=== PATIENT | female | born 1970 | race African-American/Black ===

== ENCOUNTER 2016-08-05 09:23 | Emergency (ER) | payer MEDICARE, MEDICAID ==
[~2016-08-05] VITALS: Ht 167.6 cm; Wt 56.7 kg
[~2016-08-05 09:23] MED LIST: ALBUTEROL SULF8.5 GM INH; CHILDREN'S100 MG/51 PO; FUROSEMIDE20 M1 PO; IBUPROFEN400 MG ORAL; PROMETHAZINE-C118 M1 ORAL; REFRESH PLUS1 EACH OP; REFRESH TEARS15 ML OP; TEGRETOL200 MG PO; [UNRECOGNIZED DRUG - OTHER] OP
[2016-08-05 11:02] LABS: MEAN CORPUSCULAR HEMOGLOBIN 30.7 PG (27.0-31.0); MEAN CORPUSCULAR HGB CONC 32.1 G/DL (32.0-36.0); MEAN CORPUSCULAR VOLUME 96 FL (80-99); PLATELET COUNT 222 K/UL (150-450); RED BLOOD COUNT 3.44 M/UL (4.20-5.40); RED CELL DISTRIBUTION WIDTH 13.5 % (11.6-14.8); WHITE BLOOD COUNT 3.1 K/UL (4.8-10.8)
[2016-08-05 11:21] LABS: ALANINE AMINOTRANSFERASE 19 U/L (3-33); ALBUMIN/GLOBULIN RATIO 1.1 (1.0-2.7); ANION GAP 12 (5-15); ASPARTATE AMINO TRANSFERASE 25 U/L (5-40); CARBON DIOXIDE 28 mEQ/L (20-30); CHLORIDE 99 mEQ/L (98-107); CREATININE 0.4 mg/dL (0.5-0.9); GLOMERULAR FILTRATION RATE > 60 mL/min (>60); HEMOLYSIS 34; POTASSIUM 4.4 mEQ/L (3.4-4.9); SODIUM 139 mEQ/L (135-145); TOTAL PROTEIN 6.4 g/dL (6.6-8.7)
[2016-08-05 11:37] LABS: BAND NEUTROPHILS % (MANUAL) 0 % (0-8); BASOPHILS % (MANUAL) 0 % (0-2); EOSINOPHILS % (MANUAL) 5 % (0-3); LYMPHOCYTES % (MANUAL) 29 % (20-45); NEUTROPHILS % (MANUAL) 56 % (45-75); PLATELET ESTIMATE ADEQUATE; PLATELET MORPHOLOGY NORMAL; TOTAL CELLS COUNTED 100
[2016-08-05 11:38] LABS: HYPOCHROMASIA 1+
[2016-08-05 12:00] VITALS: BP 130/78
--- NOTE | 2016-08-05 13:13 | Emergency Room Report ---
History of Present Illness General Chief Complaint: Abdominal Pain Source: Patient, Family Member, EMS Present Illness HPI Patient has a history of seizure disorder and neurofibromatosis. She is brought in by ambulance for a possible seizure. Although, EMS states that she just seemed agitated on arrival. Patient underwent a hysterectomy about a week ago. She states that she is on the wrong seizure medications. The patient denies abdominal pain. Patient denies fever or chills. There are no other complaints. Allergies: Coded Allergies: PENICILLINS (Verified Allergy, Severe, 08/07/12) SHELLFISH DERIVED (Verified Allergy, Severe, 08/07/12) Uncoded Allergies: PENECILLIN (Allergy, Unknown, 08/05/16) Patient History Past Medical History: see triage record, seizures, other - neurofibromatosis, nerve deafness, anemia Past Surgical History: hysterectomy Social History: Denies: alcohol use, drug use, smoking Last Menstrual Period: hysterectomy 07/31/16 Reviewed Nursing Documentation: PMH: Agreed, PSxH: Agreed Nursing Documentation-PMH Past Medical History: No History, Except For Hx Hypertension: No Hx Pacemaker: No Hx Asthma: No Hx COPD: No Hx Diabetes: No Hx Cancer: No Hx Gastrointestinal Problems: No Hx Dialysis: No Hx Neurological Problems: Yes Hx Cerebrovascular Accident: No Hx Seizures: Yes Hx Vertigo: Yes Hx Neurologic Surgery: Yes - 1994 TUMOR REMOVAL Review of Systems All Other Systems: negative except mentioned in HPI Physical Exam Vital Signs Date Time Temp Pulse Resp B/P Pulse Ox O2 Delivery O2 Flow Rate FiO2 08/05/16 09:20 97.9 76 19 140/90 99 Room Air Sp02 EP Interpretation: reviewed, normal General Appearance: no apparent distress, alert, GCS 15, non-toxic Head: normocephalic, atraumatic Eyes: bilateral eye PERRL, bilateral eye normal inspection ENT: hearing grossly normal, normal pharynx, no angioedema, normal voice Neck: full range of motion, supple/symm/no masses Respiratory: chest non-tender, lungs clear, normal breath sounds, speaking full sentences Cardiovascular #1: regular rate, rhythm, no edema Gastrointestinal: normal bowel sounds, non tender, soft, non-distended, no guarding, no rebound, other - Postoperative abdominal incision site is healing well. Minimal tenderness to palpation. No erythema or swelling. Rectal: deferred Musculoskeletal: normal range of motion, non-tender Neurologic: alert, oriented x3, responsive, motor strength/tone normal, sensory intact, other - At baseline Psychiatric: judgement/insight normal, memory normal, mood/affect normal, no suicidal/homicidal ideation Skin: warm/dry, well hydrated Medical Decision Making Diagnostic Impression: Primary Impression: Seizure disorder Additional Impression: Medication side effect ER Course She had a negative workup. This included basic labs to include CBC, CMP. The patient had no further seizures here in the emergency department. The aunt of the patient was bedside and state that this is her normal mental status. She did mention that the agitation that was reported by EMS was not typical for her. The patient is currently on oxycodone and hydrocodone for her being postoperative. Possibly this is a medication side effect. I did discuss with the patient's primary caregiver to reduce the amount of oxycodone. The patient had labs that her baseline for her and no significant findings on physical exam. She's also had her baseline mental status. She could have had a breakthrough seizure and had a short postictal state. The patient is on carbamazepine and took the medication this morning. Apparently she had been on some different medication while at [facility]. At this time I did not identify an emergency medical condition. However I did educate the caregiver/Aunt to return for any new or worsening symptoms. She indicated understanding. Labs Test 08/05/16 09:35 White Blood Count 3.1 K/UL (4.8-10.8) Red Blood Count 3.44 M/UL (4.20-5.40) Hemoglobin 10.6 G/DL (12.0-16.0) Hematocrit 32.9 % (37.0-47.0) Mean Corpuscular Volume 96 FL (80-99) Mean Corpuscular Hemoglobin 30.7 PG (27.0-31.0) Mean Corpuscular Hemoglobin Concent 32.1 G/DL (32.0-36.0) Red Cell Distribution Width 13.5 % (11.6-14.8) Platelet Count 222 K/UL (150-450) Mean Platelet Volume 9.0 FL (6.5-10.1) Neutrophils (%) (Auto) % (45.0-75.0) Lymphocytes (%) (Auto) % (20.0-45.0) Monocytes (%) (Auto) % (1.0-10.0) Eosinophils (%) (Auto) % (0.0-3.0) Basophils (%) (Auto) % (0.0-2.0) Differential Total Cells Counted 100 Neutrophils % (Manual) 56 % (45-75) Lymphocytes % (Manual) 29 % (20-45) Monocytes % (Manual) 10 % (1-10) Eosinophils % (Manual) 5 % (0-3) Basophils % (Manual) 0 % (0-2) Band Neutrophils 0 % (0-8) Platelet Estimate Adequate Platelet Morphology Normal Hypochromasia 1+ Sodium Level 139 mEQ/L (135-145) Potassium Level 4.4 mEQ/L (3.4-4.9) Chloride Level 99 mEQ/L (98-107) Carbon Dioxide Level 28 mEQ/L (20-30) Anion Gap 12 (5-15) Blood Urea Nitrogen 4 mg/dL (7-23) Creatinine 0.4 mg/dL (0.5-0.9) Estimat Glomerular Filtration Rate > 60 mL/min (>60) Glucose Level 111 mg/dL (74-106) Calcium Level 9.0 mg/dL (8.6-10.2) Total Bilirubin 0.2 mg/dL (0.0-1.2) Aspartate Amino Transf (AST/SGOT) 25 U/L (5-40) Alanine Aminotransferase (ALT/SGPT) 19 U/L (3-33) Alkaline Phosphatase 66 U/L (35-104) Total Protein 6.4 g/dL (6.6-8.7) Albumin 3.4 g/dL (3.5-5.2) Globulin 3.0 g/dL Albumin/Globulin Ratio 1.1 (1.0-2.7) EKG Diagnostic Results Rate: normal Rhythm: NSR ST Segments: no acute changes Rhythm Strip Diag. Results EP Interpretation: yes Rate: 90's Rhythm: NSR, no PVC's, no ectopy Last Vital Signs Date Time Temp Pulse Resp B/P Pulse Ox O2 Delivery O2 Flow Rate FiO2 08/05/16 12:00 99 18 130/78 100 Room Air 08/05/16 09:20 97.9 Status: improved Disposition: HOME, SELF-CARE Condition: Improved Referrals: NOT CHOSEN IPA/,REFERRING (PCP) TYLER TORREZ D.O. Aug 05, 2016 13:12
[2016-08-05 13:31] VITALS: BP 134/64
[2016-08-05 13:32] VITALS: BP 134/64
--- NOTE | 2016-08-12 14:53 | Cardiology Report ---
APPROVED REPORT EKG Measurement Heart [id number] Normal sinus rhythm Possible Left atrial enlargement Nonspecific T wave abnormality Abnormal ECG
== END 2016-08-05 13:38 | disposition home or self-care (01) ==
LOC: EDBD 09:23 → EMR 10:06
DX: G40.909 Epilepsy, unspecified, not intractable, without status epilepticus (principal); Z90.710 Acquired absence of both cervix and uterus; Z88.0 Allergy status to penicillin; Z91.013 Allergy to seafood; T50.905A Adverse effect of unspecified drugs, medicaments and biological substances, initial encounter; Y92.9 Unspecified place or not applicable; Y99.8 Other external cause status
CPT/HCPCS: 36415; 80053; 85007; 85025; 87040; 93005; 99284

== ENCOUNTER 2016-12-02 09:45 | Outpatient (RCR) | payer MEDICARE, MEDICAID | END 2016-12-26 | disposition home or self-care (01) | LOC: PTY 09:45 | DX: Q85.00 Neurofibromatosis, unspecified (principal); R26.9 Unspecified abnormalities of gait and mobility; R56.9 Unspecified convulsions; R47.9 Unspecified speech disturbances | CPT/HCPCS: 92507; 92526; 92610; 97110; 97162; 97530; G8978; G8979 ==

== ENCOUNTER 2017-01-05 09:30 | Outpatient (RCR) | payer MEDICARE, MEDICAID | END 2017-01-26 | disposition home or self-care (01) | LOC: PTY 09:30 | DX: R26.9 Unspecified abnormalities of gait and mobility (principal); Q85.00 Neurofibromatosis, unspecified; R47.9 Unspecified speech disturbances; G40.909 Epilepsy, unspecified, not intractable, without status epilepticus | CPT/HCPCS: 92507; 97110; 97116; G9168; G9169 ==

== ENCOUNTER 2017-02-11 09:52 | Outpatient (RCR) | payer MEDICARE, MEDICAID | END 2017-02-26 | disposition home or self-care (01) | LOC: PTY 09:52 | DX: R26.9 Unspecified abnormalities of gait and mobility (principal); Q85.00 Neurofibromatosis, unspecified; R47.9 Unspecified speech disturbances; G40.909 Epilepsy, unspecified, not intractable, without status epilepticus | CPT/HCPCS: 97110; G8981; G8982 ==

== ENCOUNTER 2017-03-11 09:29 | Outpatient (RCR) | payer MEDICARE, MEDICAID | END 2017-03-28 | disposition home or self-care (01) | LOC: PTY 09:29 | DX: Q85.00 Neurofibromatosis, unspecified (principal); R26.9 Unspecified abnormalities of gait and mobility; R47.9 Unspecified speech disturbances; R56.9 Unspecified convulsions ==

== ENCOUNTER 2017-04-27 10:20 | Outpatient (RCR) | payer MEDICARE, MEDICAID | END 2017-04-28 | disposition home or self-care (01) | LOC: PTY 10:20 | DX: Q85.00 Neurofibromatosis, unspecified (principal); R26.9 Unspecified abnormalities of gait and mobility; R56.9 Unspecified convulsions ==

== ENCOUNTER 2017-05-18 11:00 | Outpatient (RCR) | payer MEDICARE, MEDICAID | END 2017-05-28 | disposition home or self-care (01) | LOC: PTY 11:00 | DX: Q85.00 Neurofibromatosis, unspecified (principal); R26.9 Unspecified abnormalities of gait and mobility; G40.909 Epilepsy, unspecified, not intractable, without status epilepticus ==

== ENCOUNTER 2017-06-08 10:50 | Outpatient (RCR) | payer MEDICARE, MEDICAID ==
[2017-06-23] MEDS ORDERED: PEPCID40 MG PO (15:08)
[2017-06-23] MEDS ORDERED: COLACE100 MG ORAL (15:21)
== END 2017-06-28 | disposition home or self-care (01) ==
LOC: PTY 10:50
DX: Q85.00 Neurofibromatosis, unspecified (principal); R26.9 Unspecified abnormalities of gait and mobility; R56.9 Unspecified convulsions

== ENCOUNTER 2017-06-23 10:08 | Emergency (ER) | payer MEDICARE, MEDICAID ==
[~2017-06-23] VITALS: Ht 167.6 cm; Wt 63.5 kg
[2017-06-23 10:35] VITALS: BP 144/84
[2017-06-23 13:32] LABS: APPEARANCE,URINE CLEAR; KETONES,URINE NEGATIVE (NEGATIVE); LEUKOCYTE ESTERASE ,URINE NEGATIVE (NEGATIVE); NITRITE,URINE NEGATIVE (NEGATIVE); PH,URINE 8 (4.5-8.0); PROTEIN,URINE NEGATIVE (NEGATIVE); UROBILINOGEN,URINE NORMAL MG/DL (0.0-1.0)
[2017-06-23 13:33] LABS: MEAN CORPUSCULAR HEMOGLOBIN 30.4 PG (27.0-31.0); MEAN CORPUSCULAR VOLUME 95 FL (80-99); MEAN PLATELET VOLUME 8.7 FL (6.5-10.1); PLATELET COUNT 227 K/UL (150-450); RED BLOOD COUNT 4.16 M/UL (4.20-5.40); RED CELL DISTRIBUTION WIDTH 12.7 % (11.6-14.8); WHITE BLOOD COUNT 3.3 K/UL (4.8-10.8)
[2017-06-23 13:39] LABS: ANION GAP 8 mmol/L (5-15); CALCIUM 8.3 MG/DL (8.5-10.1); CARBON DIOXIDE 30 MMOL/L (21-32); CHLORIDE 92 MMOL/L (98-107); CREATININE 0.5 MG/DL (0.55-1.30); GLOMERULAR FILTRATION RATE > 60 mL/min (>60); POTASSIUM 4.1 MMOL/L (3.5-5.1); SODIUM 130 MMOL/L (136-145)
[2017-06-23 13:43] LABS: ALANINE AMINOTRANSFERASE 36 U/L (12-78); ALBUMIN/GLOBULIN RATIO 0.9 (1.0-2.7); ASPARTATE AMINO TRANSFERASE 25 U/L (15-37); LIPASE 63 U/L (73-393); TOTAL PROTEIN 8.8 G/DL (6.4-8.2)
[2017-06-23 14:14] LABS: BAND NEUTROPHILS % (MANUAL) 0 % (0-8); BASOPHILS % (MANUAL) 0 % (0-2); EOSINOPHILS % (MANUAL) 0 % (0-3); LYMPHOCYTES % (MANUAL) 29 % (20-45); NEUTROPHILS % (MANUAL) 60 % (45-75); PLATELET ESTIMATE ADEQUATE; PLATELET MORPHOLOGY NORMAL; TOTAL CELLS COUNTED 100
[2017-06-23] MEDS ORDERED: PEPCID40 MG PO (15:08)
--- NOTE | 2017-06-23 15:09 | Emergency Room Report ---
History of Present Illness General Chief Complaint: Abdominal Pain Source: Patient Present Illness HPI 47-year-old female with mild developmental delay, p/w epigastric/right upper quadrant abdominal pain for 3 days Patient states pain started gradually, non radiating, burning and sharp in nature, intermittent. No relieving or exacerbating factors. Severity is mild. Pt reports n/v, 2 episodes of nbnb vomiting, denies diarrhea Denies fever, chills. No hx of abdominal surgeries. No hx of endoscopies/colonoscopies. Allergies: Coded Allergies: PENICILLINS (Verified Allergy, Severe, 08/07/12) SHELLFISH DERIVED (Verified Allergy, Severe, 08/07/12) Uncoded Allergies: PENECILLIN (Allergy, Unknown, 08/05/16) Patient History Past Medical History: see triage record Past Surgical History: none Pertinent Family History: none Last Menstrual Period: Hyst Reviewed Nursing Documentation: PMH: Agreed, PSxH: Agreed Nursing Documentation-PMH Hx Hypertension: No Hx Pacemaker: No Hx Asthma: No Hx COPD: No Hx Diabetes: No Hx Cancer: No Hx Gastrointestinal Problems: No Hx Dialysis: No Hx Neurological Problems: Yes - Neurofibrosis Hx Cerebrovascular Accident: No Hx Seizures: Yes Hx Vertigo: Yes Hx Neurologic Surgery: Yes - 1989, 1994 TUMOR REMOVAL Review of Systems All Other Systems: negative except mentioned in HPI Physical Exam Vital Signs Date Time Temp Pulse Resp B/P (MAP) Pulse Ox O2 Delivery O2 Flow Rate FiO2 06/23/17 10:25 98.1 85 18 143/82 100 Room Air Sp02 EP Interpretation: reviewed, normal General Appearance: normal inspection, well appearing, no apparent distress, alert, GCS 15, non-toxic, other - deaf but can converse by reading lips, NAD Head: normocephalic, atraumatic Eyes: bilateral eye normal inspection, bilateral eye PERRL, bilateral eye EOMI ENT: normal ENT inspection, normal pharynx, normal voice, moist mucus membranes Neck: normal inspection, full range of motion, supple Respiratory: normal inspection, lungs clear, normal breath sounds, no respiratory distress, no retraction, no wheezing, speaking full sentences, chest symmetrical Cardiovascular #1: normal inspection, regular rate, rhythm, normal capillary refill Cardiovascular #2: 2+ radial (R), 2+ radial (L) Gastrointestinal: normal inspection, non tender, soft, non-distended, no guarding, other - +mild RUQ tendenress no guarding or rigdity, some epigastric tendeness, nontender all other quadrants of abdomen Musculoskeletal: normal inspection, back normal, normal range of motion, non- tender Neurologic: normal inspection, alert, oriented x3, responsive, motor strength/ tone normal, sensory intact, normal gait, speech normal Psychiatric: normal inspection, judgement/insight normal, memory normal Skin: normal inspection, normal color, no rash, warm/dry, well hydrated, normal turgor Medical Decision Making ER Course 47-year-old female with epigastric and right upper quadrant pain Differential Diagnosis: Gastritis, gastroenteritis, cholecystitis, Leri Kalpesh, appendicitis, UTI/pyelo At this time abdomen is soft nontender with the exception of the epigastric and right upper quadrant region, will hold CT for now. Plan: Basic labs, ua, ekg Pepcid, pain control, IVF RUQ sono ER course: Patient has remained stable during ED stay. Pain improved. Repeat abdominal exam is nontender. Labs are unremarkable, gallbladder sonogram no abnormalities Disposition: Patient is to be discharged to home. Prescriptions given are Pepcid Patient is instructed to follow up with their primary care doctor within 5 days. Patient is instructed to follow up with gastroenterology within 3 days. Strict return precautions discussed with patient such as fever, chills, worsening/severe abdominal pain, nausea, vomiting, black or bloody stools, which may indicate severe illness. Patient verbalizes understanding and agrees with plan. Please note that this Emergency Department Report was dictated using Invisiblegluing machine operator technology software, occasionally this can lead to erroneous entry secondary to interpretation by the dictation equipment Rhythm Strip EP Interpretation: Yes Rate: 80 Rhythm: NSR, no PVCs, no ectopy Laboratory Tests Test 06/23/17 11:45 06/23/17 12:10 White Blood Count 3.3 K/UL (4.8-10.8) L Red Blood Count 4.16 M/UL (4.20-5.40) L Hemoglobin 12.7 G/DL (12.0-16.0) Hematocrit 39.6 % (37.0-47.0) Mean Corpuscular Volume 95 FL (80-99) Mean Corpuscular Hemoglobin 30.4 PG (27.0-31.0) Mean Corpuscular Hemoglobin Concent 32.0 G/DL (32.0-36.0) Red Cell Distribution Width 12.7 % (11.6-14.8) Platelet Count 227 K/UL (150-450) Mean Platelet Volume 8.7 FL (6.5-10.1) Neutrophils (%) (Auto) % (45.0-75.0) Lymphocytes (%) (Auto) % (20.0-45.0) Monocytes (%) (Auto) % (1.0-10.0) Eosinophils (%) (Auto) % (0.0-3.0) Basophils (%) (Auto) % (0.0-2.0) Differential Total Cells Counted 100 Neutrophils % (Manual) 60 % (45-75) Lymphocytes % (Manual) 29 % (20-45) Monocytes % (Manual) 11 % (1-10) H Eosinophils % (Manual) 0 % (0-3) Basophils % (Manual) 0 % (0-2) Band Neutrophils 0 % (0-8) Platelet Estimate Adequate Platelet Morphology Normal Red Blood Cell Morphology Normal Sodium Level 130 MMOL/L (136-145) L Potassium Level 4.1 MMOL/L (3.5-5.1) Chloride Level 92 MMOL/L (98-107) L Carbon Dioxide Level 30 MMOL/L (21-32) Anion Gap 8 mmol/L (5-15) Blood Urea Nitrogen 5 mg/dL (7-18) L Creatinine 0.5 MG/DL (0.55-1.30) L Estimate Glomerular Filtration Rate > 60 mL/min (>60) Glucose Level 98 MG/DL (74-106) Calcium Level 8.3 MG/DL (8.5-10.1) L Total Bilirubin 0.4 MG/DL (0.2-1.0) Aspartate Amino Transferase (AST) 25 U/L (15-37) Alanine Aminotransferase (ALT) 36 U/L (12-78) Alkaline Phosphatase 90 U/L (46-116) Total Protein 8.8 G/DL (6.4-8.2) H Albumin 4.2 G/DL (3.4-5.0) Globulin 4.6 g/dL Albumin/Globulin Ratio 0.9 (1.0-2.7) L Lipase 63 U/L (73-393) L Urine Color Pale yellow Urine Appearance Clear Urine pH 8 (4.5-8.0) Urine Specific [place] 1.010 (1.005-1.035) Urine Protein Negative (NEGATIVE) Urine Glucose (UA) Negative (NEGATIVE) Urine Ketones Negative (NEGATIVE) Urine Occult Blood Negative (NEGATIVE) Urine Nitrite Negative (NEGATIVE) Urine Bilirubin Negative (NEGATIVE) Urine Urobilinogen Normal MG/DL (0.0-1.0) Urine Leukocyte Esterase Negative (NEGATIVE) CT/MRI/US Diagnostic Results CT/MRI/US Diagnostic Results : Imaging Test Ordered: Abdominal US Impression no gallbladder abnormalities noted Last Vital Signs Date Time Temp Pulse Resp B/P (MAP) Pulse Ox O2 Delivery O2 Flow Rate FiO2 06/23/17 10:35 98.1 83 23 144/84 100 Room Air Disposition: HOME, SELF-CARE Condition: Improved Scripts Famotidine (PEPCID) 40 Mg Tablet 40 MG PO DAILY, #7 TAB 0 Refills Prov: Som Ingram M.D. 06/23/17 Referrals: NON PHYSICIAN (PCP) Patient Instructions: Abdominal Pain, Adult Som Ingram M.D. Jun 23, 2017 15:09
[2017-06-23] MEDS ORDERED: COLACE100 MG ORAL (15:21)
[2017-06-23 15:45] VITALS: BP 158/89
--- NOTE | 2017-06-23 16:20 | Diagnostic Imaging Report ---
Indication:Abdominal pain Technique: Grayscale and duplex Doppler imaging of the abdomen performed. Comparison: None Findings: Study is limited significantly with regard to visualization of the abdominal structures including portions of the liver, the entire spleen and left kidney. The gallbladder is noted. No obvious gallstones or biliary ductal dilatation appreciated. No obvious hydronephrosis of the right kidney is appreciated. Pancreas is also not well-seen. Portal vein is patent by Doppler examination. IVC and aorta appear grossly unremarkable. IMPRESSION: Limited evaluation as described above.
== END 2017-06-23 15:45 | disposition home or self-care (01) ==
LOC: EMR 11:09
DX: R10.13 Epigastric pain (principal); R10.11 Right upper quadrant pain
CPT/HCPCS: 36415; 76700; 80053; 81003; 83690; 85007; 85025; 96361; 96374; 96375; 99284

== ENCOUNTER 2017-09-16 09:30 | Outpatient (RCR) | payer MEDICARE, MEDICAID ==
[~2017-09-16 09:30] MED LIST changes: +COLACE100 MG ORAL; +PEPCID40 MG PO
== END 2017-09-26 | disposition home or self-care (01) ==
LOC: PTY 09:30
DX: Q85.02 Neurofibromatosis, type 2 (principal); R26.9 Unspecified abnormalities of gait and mobility; R56.9 Unspecified convulsions; H91.90 Unspecified hearing loss, unspecified ear; R62.50 Unspecified lack of expected normal physiological development in childhood
CPT/HCPCS: 97110; 97162; G8978; G8979

== ENCOUNTER 2017-09-30 10:49 | Outpatient (RCR) | payer MEDICARE, MEDICAID | END 2017-10-26 | disposition home or self-care (01) | LOC: PTY 10:49 | DX: Q85.02 Neurofibromatosis, type 2 (principal); R26.9 Unspecified abnormalities of gait and mobility; R56.9 Unspecified convulsions; H91.90 Unspecified hearing loss, unspecified ear; R62.50 Unspecified lack of expected normal physiological development in childhood ==

== ENCOUNTER 2018-05-13 08:19 | Inpatient (IN) | payer MEDICARE, MEDICAID ==
[~2018-05-13] VITALS: Ht 165.1 cm; Wt 61.2 kg
[2018-05-13 08:36] VITALS: BP 117/84
[2018-05-13] MEDS ORDERED: GABAPENTIN100 MG ORAL (08:47)
[2018-05-13 09:10] LABS: BASOPHILS % (AUTO) 1.8 % (0.0-2.0); EOSINOPHILS % (AUTO) 0.8 % (0.0-3.0); HEMATOCRIT 49.3 % (37.0-47.0); HEMOGLOBIN 15.8 G/DL (12.0-16.0); LYMPHOCYTES % (AUTO) 30.2 % (20.0-45.0); MEAN CORPUSCULAR VOLUME 94 FL (80-99); MONOCYTES % (AUTO) 8.5 % (1.0-10.0); NEUTROPHILS % (AUTO) 58.8 % (45.0-75.0); PLATELET COUNT 197 K/UL (150-450); RED BLOOD COUNT 5.26 M/UL (4.20-5.40); RED CELL DISTRIBUTION WIDTH 13.7 % (11.6-14.8); WHITE BLOOD COUNT 3.9 K/UL (4.8-10.8)
[2018-05-13 09:34] LABS: APPEARANCE,URINE CLOUDY; BILIRUBIN, URINE NEGATIVE (NEGATIVE); GLUCOSE, URINE (UA) NEGATIVE (NEGATIVE); KETONES,URINE 1+ (NEGATIVE); LEUKOCYTE ESTERASE ,URINE 3+ (NEGATIVE); NITRITE,URINE NEGATIVE (NEGATIVE); PH,URINE 5 (4.5-8.0); PROTEIN,URINE 3+ (NEGATIVE); UROBILINOGEN,URINE 1 MG/DL (0.0-1.0)
[2018-05-13 09:39] LABS: COLOR,URINE YELLOW
[2018-05-13 10:06] LABS: ANION GAP 8 mmol/L (5-15); BLOOD UREA NITROGEN 16 mg/dL (7-18); CALCIUM 9.4 MG/DL (8.5-10.1); CARBON DIOXIDE 28 MMOL/L (21-32); CHLORIDE 99 MMOL/L (98-107); CREATININE 0.8 MG/DL (0.55-1.30); SODIUM 135 MMOL/L (136-145)
[2018-05-13 10:20] LABS: ALBUMIN 3.7 G/DL (3.4-5.0); ALBUMIN/GLOBULIN RATIO 0.7 (1.0-2.7); ALKALINE PHOSPHATASE 195 U/L (46-116); ASPARTATE AMINO TRANSFERASE 48 U/L (15-37); BILIRUBIN,TOTAL 0.7 MG/DL (0.2-1.0); CKMB 4.2 NG/ML (0.0-3.6); CREATINE KINASE 157 U/L (26-308)
[2018-05-13 10:35] LABS: ALANINE AMINOTRANSFERASE 57 U/L (12-78)
--- NOTE | 2018-05-13 11:35 | Emergency Room Report ---
History of Present Illness General Chief Complaint: General Complaint Source: Patient, Family Member Present Illness HPI This patient has a history of neural fibromatosis. She has a history of pulmonary hypertension and fluid overload secondary to right-sided heart failure. She presents because she has had worsening swelling over her entire body to now include her face. She states she did see her primary care physician last week and was taken off diuretics because the primary states that this is pulmonary and that the diuretics will not help. However, the swelling has gotten progressively worse since that time and prior to that. The primary care physician had referred her to Dr. Snow for further evaluation. The mother is requesting Dr. Snow as an admitting physician. The patient denies pain or shortness of breath. There is been no recent illness. There is no fever or chills. She has no other complaints. Allergies: Coded Allergies: PENICILLINS (Verified Allergy, Severe, 08/07/12) SHELLFISH DERIVED (Verified Allergy, Severe, 08/07/12) Uncoded Allergies: PENECILLIN (Allergy, Unknown, 08/05/16) Patient History Past Medical History: none, see triage record, other - NF, pulmonary HTN, tumors, cataracts, nerve deafness Past Surgical History: hysterectomy, other - Tumor resections Social History: Denies: smoking, alcohol use, drug use Reviewed Nursing Documentation: PMH: Agreed; PSxH: Agreed Nursing Documentation-PMH Past Medical History: No History, Except For Hx Hypertension: No Hx Pacemaker: No Hx Asthma: No Hx COPD: No Hx Diabetes: No Hx Cancer: No Hx Gastrointestinal Problems: No Hx Dialysis: No Hx Neurological Problems: Yes - Neurofibrosis Hx Cerebrovascular Accident: No Hx Seizures: Yes Hx Vertigo: Yes Hx Neurologic Surgery: Yes - 1994 TUMOR REMOVAL Review of Systems All Other Systems: negative except mentioned in HPI Physical Exam Vital Signs Date Time Temp Pulse Resp B/P (MAP) Pulse Ox O2 Delivery O2 Flow Rate FiO2 05/13/18 08:34 97.3 70 18 117/84 96 Room Air Sp02 EP Interpretation: reviewed, normal General Appearance: no apparent distress, alert, GCS 15, non-toxic Head: normocephalic, atraumatic ENT: hearing grossly normal, normal pharynx, no angioedema Neck: normal inspection, full range of motion Respiratory: chest non-tender, lungs clear, normal breath sounds, no respiratory distress, no retraction, no accessory muscle use, speaking full sentences Cardiovascular #1: regular rate, rhythm, no edema Gastrointestinal: normal bowel sounds, non tender, soft, non-distended, no guarding, no rebound Rectal: deferred Musculoskeletal: back normal, gait/station normal, normal range of motion, non- tender Neurologic: alert, oriented x3, responsive, other - At baseline Psychiatric: judgement/insight normal, memory normal, mood/affect normal, no suicidal/homicidal ideation Skin: normal color, no rash, warm/dry, well hydrated Medical Decision Making Diagnostic Impression: Primary Impression: Fluid overload Additional Impressions: Pulmonary hypertension Neurofibromatosis Elevated troponin I level UTI (urinary tract infection) ER Course This patient has a history of neurofibromatosis. She also has severe pulmonary hypertension. She presents with worsening fluid overload and the request to be seen by Dr. Snow in pulmonary. The patient is admitted for further evaluation and treatment by pulmonary and cardiology and for fluid overload. Laboratory Tests Test 05/13/18 08:56 05/13/18 09:00 05/13/18 09:20 White Blood Count 3.9 K/UL (4.8-10.8) L Red Blood Count 5.26 M/UL (4.20-5.40) Hemoglobin 15.8 G/DL (12.0-16.0) Hematocrit 49.3 % (37.0-47.0) H Mean Corpuscular Volume 94 FL (80-99) Mean Corpuscular Hemoglobin 30.1 PG (27.0-31.0) Mean Corpuscular Hemoglobin Concent 32.1 G/DL (32.0-36.0) Red Cell Distribution Width 13.7 % (11.6-14.8) Platelet Count 197 K/UL (150-450) Mean Platelet Volume 8.7 FL (6.5-10.1) Neutrophils (%) (Auto) 58.8 % (45.0-75.0) Lymphocytes (%) (Auto) 30.2 % (20.0-45.0) Monocytes (%) (Auto) 8.5 % (1.0-10.0) Eosinophils (%) (Auto) 0.8 % (0.0-3.0) Basophils (%) (Auto) 1.8 % (0.0-2.0) Sodium Level 135 MMOL/L (136-145) L Potassium Level 5.0 MMOL/L (3.5-5.1) Chloride Level 99 MMOL/L (98-107) Carbon Dioxide Level 28 MMOL/L (21-32) Anion Gap 8 mmol/L (5-15) Blood Urea Nitrogen 16 mg/dL (7-18) Creatinine 0.8 MG/DL (0.55-1.30) Estimate Glomerular Filtration Rate > 60 mL/min (>60) Glucose Level 104 MG/DL (74-106) Calcium Level 9.4 MG/DL (8.5-10.1) Total Bilirubin 0.7 MG/DL (0.2-1.0) Aspartate Amino Transferase (AST) 48 U/L (15-37) H Alanine Aminotransferase (ALT) 57 U/L (12-78) Alkaline Phosphatase 195 U/L (46-116) H Total Creatine Kinase 157 U/L (26-308) Creatine Kinase MB 4.2 NG/ML (0.0-3.6) H Creatine Kinase MB Relative Index 2.6 Troponin I 0.101 ng/mL (0.000-0.056) Pro-B-Type Natriuretic Peptide 3310 pg/mL (0-125) H Total Protein 8.9 G/DL (6.4-8.2) H Albumin 3.7 G/DL (3.4-5.0) Globulin 5.2 g/dL Albumin/Globulin Ratio 0.7 (1.0-2.7) L Lactic Acid Level 1.20 mmol/L (0.4-2.0) Urine Color Yellow Urine Appearance Cloudy Urine pH 5 (4.5-8.0) Urine Specific [place] 1.015 (1.005-1.035) Urine Protein 3+ (NEGATIVE) H Urine Glucose (UA) Negative (NEGATIVE) Urine Ketones 1+ (NEGATIVE) H Urine Blood 3+ (NEGATIVE) H Urine Nitrite Negative (NEGATIVE) Urine Bilirubin Negative (NEGATIVE) Urine Urobilinogen 1 MG/DL (0.0-1.0) H Urine Leukocyte Esterase 3+ (NEGATIVE) H Urine RBC 5-10 /HPF (0 - 2) H Urine WBC 20-30 /HPF (0 - 2) H Urine Squamous Epithelial Cells Few /LPF (NONE/OCC) Urine Bacteria Moderate /HPF (NONE) H Urine Opiates Screen Negative (NEGATIVE) Urine Barbiturates Screen Negative (NEGATIVE) Phencyclidine (PCP) Screen Negative (NEGATIVE) Urine Amphetamines Screen Negative (NEGATIVE) Urine Benzodiazepines Screen Negative (NEGATIVE) Urine Cocaine Screen Negative (NEGATIVE) Urine Marijuana (THC) Screen Negative (NEGATIVE) EKG Diagnostic Results Rate: normal Rhythm: NSR ST Segments: other - NSST, RA enlargement, RVH Rhythm Strip Diag. Results EP Interpretation: yes Rate: 70's Rhythm: NSR, no PVC's, no ectopy Last Vital Signs Date Time Temp Pulse Resp B/P (MAP) Pulse Ox O2 Delivery O2 Flow Rate FiO2 05/13/18 08:38 78 18 Room Air 05/13/18 08:36 97.3 117/84 96 Disposition: ADMITTED INPATIENT Condition: Serious Referrals: NON PHYSICIAN (PCP) Karla Chavez DO May 13, 2018 11:35
[2018-05-13] MEDS ORDERED: cefTRIAXone 1 GM in NS 55 ML IVPB ONE (11:45)
[2018-05-13 12:30] VITALS: BP 117/80
[2018-05-13] MEDS ORDERED: Milk of Magnesia 30ml Ud ORAL PRN (15:45)
[2018-05-13] MEDS ORDERED: carBAMazepine 200mg tab ORAL SCH (18:00)
[2018-05-13 20:00] VITALS: BP 141/102
[2018-05-13] MEDS: carBAMazepine 200mg tab ORAL SCH (20:30)
--- NOTE | 2018-05-13 20:45 | History and Physical Report ---
DATE OF ADMISSION: 05/13/2018 REASON FOR ADMISSION: Pulmonary edema, pulmonary hypertension, shortness of breath, and anasarca. HISTORY OF PRESENT ILLNESS: This is a 48-year-old unfortunate female with history of neurofibromatosis. The patient presents with history of pulmonary hypertension by echo and planned for right heart cath. The patient has had worsening edema overall including facies. The patient did see her primary care physician and was taken off diuretics due to lack of improvement, and the patient was referred to me for further evaluation, but presented to the emergency room. The patient denies any shortness of breath. No recent illness or fevers or chills. Workup reviewed and evaluated. The patient currently is admitted for further optimization due to acute changes. PAST MEDICAL HISTORY: Notable for pulmonary hypertension, cataracts, prior history of tumor resection, and hysterectomy. MEDICATIONS: Reviewed. ALLERGIES: Reviewed. SOCIAL HISTORY: Nonsmoker and nondrinker. The patient is disabled. REVIEW OF SYSTEMS: Notable for prior neurofibroma resection. Otherwise with some increasing shortness of breath with significant anasarca. All other systems reviewed and otherwise negative. PHYSICAL EXAMINATION: GENERAL: A well-developed female, in no significant distress. VITAL SIGNS: Blood pressure 115/80, saturations 96% on room air, pulse 82, respirations 18, and temperature 97.5. HEENT: Negative. Extraocular movements are grossly intact. NECK: Supple. LUNGS: Otherwise fairly clear. Moderate air entry. CARDIAC: Normal S1, S2. Regular rate and rhythm. Positive P2. Soft systolic murmur at left parasternal border. ABDOMEN: Soft and nontender. EXTREMITIES: Noted edema, pitting. NEUROLOGICAL: Otherwise grossly nonfocal. No fibromas noted on examination. LABORATORY DATA: Otherwise reviewed. Electrolytes fairly negative. Liver enzymes mildly elevated. Troponin 0.11. BNP 3310. CBC otherwise noted. EKG noted right heart strain. IMPRESSION: Pulmonary hypertension, possible passive congestion associated anasarca, and neurofibromatosis. RECOMMENDATIONS: Supportive care. attempt IV diuresis slightly to optimize the patient's status. Monitor clinically and recommend. Monitor H and H. Followup echocardiogram and EKG to assess right heart pressures if not done recently. We will discuss and attempt to treat therapeutically likely with two drugs and/or three drugs if necessary pending findings. Juan Snow M.D. DR: AKSHAT JOB#: [id number] CC: ADONIS
[2018-05-14 04:00] VITALS: BP 132/90
[2018-05-14 06:44] LABS: BASOPHILS % (AUTO) 2.1 % (0.0-2.0); EOSINOPHILS % (AUTO) 0.5 % (0.0-3.0); HEMATOCRIT 45.9 % (37.0-47.0); HEMOGLOBIN 15.2 G/DL (12.0-16.0); LYMPHOCYTES % (AUTO) 28.1 % (20.0-45.0); MEAN CORPUSCULAR VOLUME 94 FL (80-99); MONOCYTES % (AUTO) 10.9 % (1.0-10.0); NEUTROPHILS % (AUTO) 58.4 % (45.0-75.0); PLATELET COUNT 110 K/UL (150-450); RED BLOOD COUNT 4.85 M/UL (4.20-5.40); RED CELL DISTRIBUTION WIDTH 13.7 % (11.6-14.8); WHITE BLOOD COUNT 3.6 K/UL (4.8-10.8)
[2018-05-14 07:15] LABS: ANION GAP 7 mmol/L (5-15); BLOOD UREA NITROGEN 18 mg/dL (7-18); CALCIUM 9.1 MG/DL (8.5-10.1); CARBON DIOXIDE 24 MMOL/L (21-32); CHLORIDE 102 MMOL/L (98-107); CREATININE 0.8 MG/DL (0.55-1.30); POTASSIUM 5.5 MMOL/L (3.5-5.1); SODIUM 132 MMOL/L (136-145)
[2018-05-14 08:00] VITALS: BP 130/88
[2018-05-14] MEDS: Sodium Polystyrene Sulfonate 15gm Powder ORAL SCH ×2 (09:00→09:23)
--- NOTE | 2018-05-14 09:00 | General Progress Note ---
Assessment/Plan Assessment/Plan IMPRESSION: Pulmonary hypertension, possible passive congestion associated anasarca, and neurofibromatosis. PLAN kayexalate echo cards evaluation diurese optimize d/w family will need right heart cath electively and therapy tye Subjective ROS Limited/Unobtainable: Yes Allergies: Coded Allergies: PENICILLINS (Verified Allergy, Severe, 08/07/12) SHELLFISH DERIVED (Verified Allergy, Severe, 08/07/12) Uncoded Allergies: PENECILLIN (Allergy, Unknown, 08/05/16) Subjective elevated K echo being done Objective Last 24 Hour Vital Signs Date Time Temp Pulse Resp B/P (MAP) Pulse Ox O2 Delivery O2 Flow Rate FiO2 05/14/18 08:00 98.6 84 20 130/88 (102) 96 05/14/18 04:00 81 05/14/18 04:00 98.4 86 22 132/90 (104) 95 05/14/18 00:00 80 05/13/18 21:00 Room Air 05/13/18 20:00 98.1 90 20 141/102 (115) 99 05/13/18 20:00 83 05/13/18 18:15 Room Air 05/13/18 16:00 80 05/13/18 12:35 97.5 82 18 117/80 97 Room Air 05/13/18 12:30 Room Air 05/13/18 12:30 97.5 82 18 117/80 97 Room Air 05/13/18 12:30 Room Air Intake and Output 05/13/18 05/14/18 19:00 07:00 Intake Total 425 ml Output Total 250 ml Balance 175 ml Intake Oral 370 ml IV Total 55 ml Output Urine Total 250 ml # Bowel Movements 1 Laboratory Tests 05/13/18 09:00: Lactic Acid Level 1.20 05/13/18 09:20: Urine Color Yellow, Urine Appearance Cloudy, Urine pH 5, Urine Specific [place] 1.015, Urine Protein 3+H, Urine Glucose (UA) Negative, Urine Ketones 1+H, Urine Blood 3+H, Urine Nitrite Negative, Urine Bilirubin Negative, Urine Urobilinogen 1H, Urine Leukocyte Esterase 3+H, Urine RBC 5-10H, Urine WBC 20-30H, Urine Squamous Epithelial Cells Few, Urine Bacteria ModerateH, Urine Opiates Screen Negative, Urine Barbiturates Screen Negative, Phencyclidine (PCP) Screen Negative, Urine Amphetamines Screen Negative, Urine Benzodiazepines Screen Negative, Urine Cocaine Screen Negative, Urine Marijuana (THC) Screen Negative 05/14/18 05:45: White Blood Count 3.6L, Red Blood Count 4.85, Hemoglobin 15.2, Hematocrit 45.9, Mean Corpuscular Volume 94, Mean Corpuscular Hemoglobin 31.2H, Mean Corpuscular Hemoglobin Concent 33.1, Red Cell Distribution Width 13.7, Platelet Count 110L, Mean Platelet Volume 7.3, Neutrophils (%) (Auto) 58.4, Lymphocytes (%) (Auto) 28.1, Monocytes (%) (Auto) 10.9H, Eosinophils (%) (Auto) 0.5, Basophils (%) ( Auto) 2.1H, Sodium Level 132L, Potassium Level 5.5H, Chloride Level 102, Carbon Dioxide Level 24, Anion Gap 7, Blood Urea Nitrogen 18, Creatinine 0.8, Estimat Glomerular Filtration Rate > 60, Glucose Level 98, Calcium Level 9.1, Troponin I 0.079H, Pro-B-Type Natriuretic Peptide 3550H Height (Feet): 5 Height (Inches): 5.00 Weight (Pounds): 125 Objective GENERAL: A well-developed female, in no significant distress. thin HEENT: Negative. Extraocular movements are grossly intact. NECK: Supple. LUNGS: Otherwise fairly clear. Moderate air entry. CARDIAC: Normal S1, S2. Regular rate and rhythm. Positive P2. Soft systolic murmur at left parasternal border. ABDOMEN: Soft and nontender. EXTREMITIES: Noted edema, pitting. NEUROLOGICAL: Otherwise grossly nonfocal. skin exam noted Juan Snow MD May 14, 2018 09:00
[2018-05-14] MEDS: carBAMazepine 200mg tab ORAL SCH ×3 (09:23→17:36)
[2018-05-14 12:00] VITALS: BP 130/88
[2018-05-14] MEDS ORDERED: Sodium Polystyrene Sulfonate 15gm Powder ORAL SCH (14:00)
--- NOTE | 2018-05-14 14:12 | Cardiology Report ---
APPROVED REPORT EXAM: Two-dimensional and M-mode echocardiogram with Doppler and color Doppler. INDICATION Pulmonary embolism M-Mode DIMENSIONS IVSd1.0 (0.7-1.1cm)Left Atrium (MM)2.4 (1.6-4.0cm) LVDd2.8 (3.5-5.6cm)Aortic Root2.5 (2.0-3.7cm) PWd1.0 (0.7-1.1cm)Aortic Cusp Exc.1.8 (1.5-2.0cm) LVDs1.5 (2.5-4.0cm) PWs1.2 cm Technically difficult study due to pts constant movement. Normal left ventricular chamber size, systolic function and wall motion to extent visualized. Diastolic septal flattening suggests of RV volume overload. Together with TAPSE (Tricuspid Annular Plane Systolic Excursion) = 12 mm, it might suggest RV systolic dysfunction. Pulmonary Embolism can not be excluded. Left ventricular ejection fraction estimated to be 60 %. No evidence of left ventricular hypertrophy. Trivial posterior pericardial effusion. Left atrial chamber size is within normal limits. Right cardiac chambers are severely enlarged. Mild focal aortic valve sclerosis with adequate cusp excursion. Thickened mitral valve leaflets with normal excursion. Mitral annulus and aortic root calcification. Pulmonic valve not well visualized. Normal tricuspid valve structure. IVC dilated at 1.9 cm without physiologic collapse suggestive of increased RA pressure. A color flow and spectral Doppler study was performed and revealed: Mild mitral regurgitation. Mitral diastolic velocities suggest reduced left ventricular relaxation c/w mild LV diastolic dysfunction (Grade I). Severe tricuspid regurgitation. Tricuspid systolic velocities suggests peak right ventricular systolic pressure of 67 mmHg, consistent with severe pulmonary hypertension. Trace pulmonic regurgitation present.
--- NOTE | 2018-05-14 15:30 | Diagnostic Imaging Report ---
Indication: Shortness of breath Technique: One view of the chest Comparison: 05/26/2016 Findings: Inspiration is suboptimal, with bilateral basilar atelectatic changes present. There is slight blunting of the right costophrenic sulcus. The heart size is upper limits of normal. The upper lungs are clear. Impression: Hypoventilatory exam with bilateral basilar atelectatic changes Suspect small right pleural effusion
[2018-05-14 16:00] VITALS: BP 128/79
--- NOTE | 2018-05-14 17:00 | Diagnostic Imaging Report ---
Indications: Shortness of breath, pulmonary hypertension Technique: IV administration 5 mCi 99m technetium macroaggregated albumin. Images obtained over the lungs in multiple projections. Previously , patient inhaled 44 mCi aerosolized 99M technetium DTPA. Images obtained over the lungs in multiple projections Comparison: Reference made to chest radiograph of earlier the same day Findings: Pulmonary perfusion is markedly heterogeneous, without definite focal segmental or subsegmental perfusion defects demonstrated. Aerosol images are even more heterogeneous. No ventilation/perfusion mismatch demonstrated. Impression: Findings deemed low probability for pulmonary embolus
[2018-05-14 20:00] VITALS: BP 124/75
[2018-05-15] VITALS: BP 135/92
[2018-05-15 04:00] VITALS: BP 122/81
[2018-05-15 07:58] VITALS: BP 139/93
[2018-05-15] MEDS: carBAMazepine 200mg tab ORAL SCH ×3 (08:09→17:06)
[2018-05-15] MEDS: Eliquis 2.5mg tablet ORAL SCH ×2 (08:10→17:06)
[2018-05-15 08:16] LABS: ANION GAP 8 mmol/L (5-15); BLOOD UREA NITROGEN 22 mg/dL (7-18); CALCIUM 8.9 MG/DL (8.5-10.1); CARBON DIOXIDE 28 MMOL/L (21-32); CHLORIDE 102 MMOL/L (98-107); CREATININE 0.8 MG/DL (0.55-1.30); POTASSIUM 4.5 MMOL/L (3.5-5.1); SODIUM 138 MMOL/L (136-145)
--- NOTE | 2018-05-15 09:17 | General Progress Note ---
Assessment/Plan Assessment/Plan IMPRESSION: Pulmonary hypertension, possible passive congestion associated anasarca, and neurofibromatosis. deaf PLAN monitor kaden echo noted d/w cards- plan for right heart cath 05/27 diurese optimize d/w family with plan to dc 05/17 with HH discuss therapy for PHTN pending right heart cath impression, plan, and exam edited and reviewed in detail care discussed with RN Subjective Allergies: Coded Allergies: PENICILLINS (Verified Allergy, Severe, 08/07/12) SHELLFISH DERIVED (Verified Allergy, Severe, 08/07/12) Subjective d/w family in detail echo being done Objective Last 24 Hour Vital Signs Date Time Temp Pulse Resp B/P (MAP) Pulse Ox O2 Delivery O2 Flow Rate FiO2 05/15/18 07:58 98.0 89 14 139/93 (108) 93 05/15/18 07:43 85 05/15/18 07:22 Room Air 05/15/18 04:00 98.0 91 14 122/81 (95) 93 05/15/18 04:00 88 05/15/18 00:00 90 05/15/18 00:00 97.3 86 19 135/92 (106) 93 05/14/18 21:00 Room Air 05/14/18 20:00 93 05/14/18 20:00 97.7 96 18 124/75 (91) 96 05/14/18 16:00 92 05/14/18 16:00 97.8 77 18 128/79 (95) 97 05/14/18 12:00 91 05/14/18 12:00 98.5 82 20 130/88 (102) 97 Intake and Output 05/14/18 05/15/18 19:00 07:00 Intake Total 800 ml 100 ml Output Total 0 ml Balance 800 ml 100 ml Intake Oral 800 ml 100 ml Stool Total 0 ml # Voids 4 3 Laboratory Tests 05/15/18 06:19: Sodium Level 138, Potassium Level 4.5, Chloride Level 102, Carbon Dioxide Level 28, Anion Gap 8, Blood Urea Nitrogen 22H, Creatinine 0.8, Estimat Glomerular Filtration Rate > 60, Glucose Level 114H, Calcium Level 8.9 Height (Feet): 5 Height (Inches): 5.00 Weight (Pounds): 125 Objective GENERAL: A well-developed female, in no significant distress. thin and same HEENT: Negative. Extraocular movements are grossly intact. deaf NECK: Supple. LUNGS: Otherwise fairly clear. Moderate air entry. CARDIAC: Normal S1, S2. Regular rate and rhythm. Positive P2. Soft systolic murmur at left parasternal border. ABDOMEN: Soft and nontender. EXTREMITIES: Noted edema, pitting. NEUROLOGICAL: Otherwise grossly nonfocal. skin exam noted Juan Snow MD May 15, 2018 09:17
[2018-05-15 12:43] VITALS: BP 123/71
[2018-05-15 15:21] VITALS: BP 146/98
[2018-05-15 20:00] VITALS: BP 142/99
[2018-05-16] VITALS: BP 136/72
[2018-05-16 04:00] VITALS: BP 138/68
[2018-05-16 08:00] VITALS: BP 135/79
[2018-05-16] MEDS: Eliquis 2.5mg tablet ORAL SCH (08:51)
[2018-05-16] MEDS: carBAMazepine 200mg tab ORAL SCH ×3 (08:51→18:15)
--- NOTE | 2018-05-16 10:03 | General Progress Note ---
Assessment/Plan Assessment/Plan IMPRESSION: Pulmonary hypertension, possible passive congestion associated anasarca, and neurofibromatosis. deaf, left leg discoloration PLAN monitor lytes echo noted d/w cards- plan for right heart cath 05/27 johanne as able repeat ultrasound left leg heparin for now; family notes left leg always cold optimize d/w family with plan to dc 05/17 with discuss therapy for PHTN pending right heart cath impression, plan, and exam edited and reviewed in detail care discussed with RN Subjective Allergies: Coded Allergies: PENICILLINS (Verified Allergy, Severe, 08/07/12) SHELLFISH DERIVED (Verified Allergy, Severe, 08/07/12) Subjective d/w family in detail - echo noted Objective Last 24 Hour Vital Signs Date Time Temp Pulse Resp B/P (MAP) Pulse Ox O2 Delivery O2 Flow Rate FiO2 05/16/18 04:00 79 05/16/18 04:00 97.6 87 18 138/68 (91) 98 05/16/18 00:00 84 05/16/18 00:00 97.4 76 20 136/72 (93) 98 05/15/18 21:00 84 05/15/18 21:00 Room Air 05/15/18 20:00 97.4 87 20 142/99 (113) 96 05/15/18 16:00 98.0 05/15/18 15:34 83 05/15/18 15:21 98.0 90 14 146/98 (114) 93 05/15/18 12:43 98.0 92 14 123/71 (88) 93 05/15/18 11:47 87 Intake and Output 05/15/18 05/16/18 19:00 07:00 Intake Total 600 ml 200 ml Output Total 0 ml Balance 600 ml 200 ml Intake Oral 600 ml 200 ml Output Urine Total 0 ml # Voids 2 Labs Test 05/14/18 05:45 05/15/18 06:19 White Blood Count 3.6 K/UL (4.8-10.8) Red Blood Count 4.85 M/UL (4.20-5.40) Hemoglobin 15.2 G/DL (12.0-16.0) Hematocrit 45.9 % (37.0-47.0) Mean Corpuscular Volume 94 FL (80-99) Mean Corpuscular Hemoglobin 31.2 PG (27.0-31.0) Mean Corpuscular Hemoglobin Concent 33.1 G/DL (32.0-36.0) Red Cell Distribution Width 13.7 % (11.6-14.8) Platelet Count 110 K/UL (150-450) Mean Platelet Volume 7.3 FL (6.5-10.1) Neutrophils (%) (Auto) 58.4 % (45.0-75.0) Lymphocytes (%) (Auto) 28.1 % (20.0-45.0) Monocytes (%) (Auto) 10.9 % (1.0-10.0) Eosinophils (%) (Auto) 0.5 % (0.0-3.0) Basophils (%) (Auto) 2.1 % (0.0-2.0) Sodium Level 132 MMOL/L (136-145) 138 MMOL/L (136-145) Potassium Level 5.5 MMOL/L (3.5-5.1) 4.5 MMOL/L (3.5-5.1) Chloride Level 102 MMOL/L (98-107) 102 MMOL/L (98-107) Carbon Dioxide Level 24 MMOL/L (21-32) 28 MMOL/L (21-32) Anion Gap 7 mmol/L (5-15) 8 mmol/L (5-15) Blood Urea Nitrogen 18 mg/dL (7-18) 22 mg/dL (7-18) Creatinine 0.8 MG/DL (0.55-1.30) 0.8 MG/DL (0.55-1.30) Estimat Glomerular Filtration Rate > 60 mL/min (>60) > 60 mL/min (>60) Glucose Level 98 MG/DL (74-106) 114 MG/DL (74-106) Calcium Level 9.1 MG/DL (8.5-10.1) 8.9 MG/DL (8.5-10.1) Troponin I 0.079 ng/mL (0.000-0.056) Pro-B-Type Natriuretic Peptide 3550 pg/mL (0-125) Height (Feet): 5 Height (Inches): 5.00 Weight (Pounds): 125 Objective GENERAL: A well-developed female, in no significant distress. thin and same HEENT: Negative. Extraocular movements are grossly intact. deaf NECK: Supple. LUNGS: Otherwise fairly clear. Moderate air entry. CARDIAC: Normal S1, S2. Regular rate and rhythm. Positive P2. Soft systolic murmur at left parasternal border. ABDOMEN: Soft and nontender. EXTREMITIES: Noted edema, minimal; noted left leg colder NEUROLOGICAL: Otherwise grossly nonfocal. skin exam noted Juan Snow MD May 16, 2018 10:03
[2018-05-16] MEDS ORDERED: Heparin 25,000u/D5W 500ml 500 ML IV SCH ×2 (11:00→18:45)
[2018-05-16] MEDS ORDERED: Heparin 5000 units/ml inj IV SCH (11:00)
[2018-05-16 11:25] LABS: HEMATOCRIT 47.6 % (37.0-47.0); HEMOGLOBIN 15.1 G/DL (12.0-16.0); MEAN CORPUSCULAR VOLUME 93 FL (80-99); PLATELET COUNT 153 K/UL (150-450); RED CELL DISTRIBUTION WIDTH 13.4 % (11.6-14.8); WHITE BLOOD COUNT 3.3 K/UL (4.8-10.8)
[2018-05-16 12:00] VITALS: BP 120/80
[2018-05-16 16:00] VITALS: BP 133/81
[2018-05-16 20:00] VITALS: BP 128/85
[2018-05-16] MEDS ORDERED: Isovue-370 150ml vial INJ PRN (20:00)
--- NOTE | 2018-05-16 21:55 | General Progress Note ---
Progress Note Progress Note Patient seen and examined earlier Asked to eval re leg duplex findings and cold feet No leg pain Hx of brain tumor and surgery Bilateral foot drops and cooler temp Less movement on left foot 2+ femorals intact pop and strong DP dopplers and weaker PTs bilateral No ulcers and no wounds Duplex noted Rec Anticoagulate CT angio aorta and legs CT brain Neurology eval and Medical optimization in progress d/w pt/ nurse and pmd Jovani Fritz MD May 16, 2018 21:55
[2018-05-17] VITALS: BP_SYST 133; BP_SYST 134; BP_DIAS 68; BP_DIAS 87
[2018-05-17] MEDS: Heparin 25,000u/D5W 500ml 500 ML IV SCH ×3 (03:47→19:35)
[2018-05-17 04:00] VITALS: BP 142/83
[2018-05-17 08:00] VITALS: BP 138/82
[2018-05-17] MEDS: carBAMazepine 200mg tab ORAL SCH ×3 (08:29→17:42)
--- NOTE | 2018-05-17 08:31 | General Progress Note ---
Assessment/Plan Assessment/Plan IMPRESSION: Pulmonary hypertension, possible passive congestion associated anasarca, and neurofibromatosis. deaf, left leg discoloration, reduced circulation ?neurological PLAN monitor lytes d/w cards- plan for right heart cath 05/27 d/w vascular await ct and angiogram results consider neuro evaluation heparin for now; family notes left leg always cold optimize d/w family -hold dc pending results discuss therapy for PHTN pending right heart cath impression, plan, and exam edited and reviewed in detail care discussed with RN Subjective Allergies: Coded Allergies: PENICILLINS (Verified Allergy, Severe, 08/07/12) SHELLFISH DERIVED (Verified Allergy, Severe, 08/07/12) Subjective d/w family in detail - arterial us noted vascular appreciated and care discussed Objective Last 24 Hour Vital Signs Date Time Temp Pulse Resp B/P (MAP) Pulse Ox O2 Delivery O2 Flow Rate FiO2 05/17/18 04:00 98.4 96 18 142/83 (102) 97 05/17/18 04:00 93 05/17/18 00:00 97 05/17/18 00:00 98.1 97 18 133/87 (102) 97 05/16/18 21:00 Nasal Cannula 2.0 05/16/18 20:00 97.3 100 18 128/85 (99) 96 05/16/18 20:00 103 05/16/18 16:00 93 05/16/18 16:00 97.7 92 20 133/81 (98) 97 05/16/18 12:00 97.5 87 16 120/80 (93) 93 05/16/18 12:00 86 05/16/18 09:00 Room Air Intake and Output 05/16/18 05/17/18 18:59 06:59 Intake Total 582.270 ml 384.313 ml Balance 582.270 ml 384.313 ml Intake Oral 450 ml 240 ml IV Total 132.270 ml 144.313 ml # Voids 2 # Bowel Movements 1 Laboratory Tests 05/16/18 11:15: White Blood Count 3.3L, Red Blood Count 5.10, Hemoglobin 15.1, Hematocrit 47.6H , Mean Corpuscular Volume 93, Mean Corpuscular Hemoglobin 29.5, Mean Corpuscular Hemoglobin Concent 31.7L, Red Cell Distribution Width 13.4, Platelet Count 153, Mean Platelet Volume 7.9, Neutrophils (%) (Auto) , Lymphocytes (%) (Auto) , Monocytes (%) (Auto) , Eosinophils (%) (Auto) , Basophils (%) (Auto) , Differential Total Cells Counted 100, Neutrophils % ( Manual) 78H, Lymphocytes % (Manual) 15L, Monocytes % (Manual) 6, Eosinophils % ( Manual) 1, Basophils % (Manual) 0, Band Neutrophils 0, Platelet Estimate Adequate, Platelet Morphology Normal, Red Blood Cell Morphology Normal, Activated Partial Thromboplast Time 30 05/16/18 17:45: Activated Partial Thromboplast Time > 150*H 05/17/18 02:00: Activated Partial Thromboplast Time > 150*H Height (Feet): 5 Height (Inches): 5.00 Weight (Pounds): 125 Objective GENERAL: A well-developed female, in no significant distress. thin and same HEENT: Negative. Extraocular movements are grossly intact. deaf NECK: Supple. LUNGS: Otherwise fairly clear. Moderate air entry. CARDIAC: Normal S1, S2. Regular rate and rhythm. Positive P2. Soft systolic murmur at left parasternal border. ABDOMEN: Soft and nontender. EXTREMITIES: Noted edema, minimal; noted left leg colder NEUROLOGICAL: Otherwise grossly nonfocal. skin exam noted Juan Snow MD May 17, 2018 08:31
[2018-05-17 12:00] VITALS: BP 121/75
--- NOTE | 2018-05-17 13:48 | Diagnostic Imaging Report ---
Indications: Increasing facial pain and headache Technique: Spiral acquisitions obtained through the brain. Angled axial and coronal 5 x 5 mm slices were reconstructed. Total dose length product 1400 mGycm. CTDI vol(s) 70 mGy. Dose reduction achieved using automated exposure control Comparison: 11/22/2013 Findings: Again demonstrated is evidence of prior right temporoparietal craniotomy. Innumerable dense and calcified masses are seen along the course of the falx, along the tentorium, and along the periphery of the cranial vault. Some of these are more heavily calcified than on the previous study. There is interim development of vasogenic edema in the right frontal deep white matter. This equivocally results in some mass effect with increased attenuation of the anterior body of the right lateral ventricle. There is suggestion, best appreciated on the coronal reconstructed images, of a new or enlarging iso to slightly hyperattenuating mass in the parasagittal high right frontal lobe measuring approximately 2.4 cm in diameter. Edema of the left cerebellar hemisphere and rightward shift of the fourth ventricle appears similar to the previous exam. There are scattered parenchymal calcifications. There is unusual calvarial hyperostosis. The visualized orbits and sinuses are unremarkable. Impression: Multiple extra-axial dense and calcified lesions, most of which are unchanged from previous study of 11/22/2013 except that a few are more heavily calcified. These are consistent with multiple meningiomas in a patient with known history of type II neurofibromatosis Vasogenic edema within the right frontal deep white matter. There does appear to be an enlarging area of ill-defined isoattenuating mass measuring at least 2.4 cm diameter in the adjacent frontal lobe so this probably represents vasogenic edema from an enlarging meningioma. Other neoplasms as etiology not excludable, however. There is equivocally some local mass effect as a result No acute intracranial bleed Post surgical changes, as described This agrees with the preliminary interpretation provided overnight by [facility] teleradiology service. The CT scanner at [facility] is accredited by the [employer] and the scans are performed using protocols designed to limit radiation exposure to as low as reasonably achievable to attain images of sufficient resolution adequate for diagnostic evaluation.
--- NOTE | 2018-05-17 15:39 | Diagnostic Imaging Report ---
Indication: 48-year-old female with history of lower extremity pain and coldness, left foot drop, abnormal noninvasive arterial imaging of the left foot, abnormal venous imaging of the right leg TECHNIQUE: IV administration nonionic contrast. Arterial phase spiral acquisitions obtained through the abdomen, pelvis, and bilateral lower extremities. Multiplanar and 3-D reconstructions were generated. Total dose length product 1773 mGycm. CTDIvol(s) 8, 105, 8, 5 mGy. Radiation dose was minimized using automated exposure control COMPARISON: Abdomen pelvis CT dated 05/24/2016. Also arterial duplex scan dated 05/16/2018 FINDINGS:Abdominal aorta: Abdominal aorta is normal in caliber. No significant atherosclerotic plaquing or stenosis. No aneurysm or dissection demonstrated. There is focal narrowing of the celiac axis origin, estimated at 70% diameter distal celiac axis and proximal branches are all patent without significant stenosis.. Patent nonstenotic superior mesenteric artery and proximal branches, no significant stenosis. Patent nonstenotic bilateral single renal arteries. Patent nonstenotic inferior mesenteric artery Right lower extremity: No significant stenosis of the iliac system, common femoral, superficial femoral, profunda femoral, popliteal arteries demonstrated. No significant atherosclerotic plaquing. The tibial vessels demonstrate patent nonstenotic anterior tibial artery, tibioperoneal trunk and peroneal artery. The posterior tibial artery is small in caliber proximally, and occludes proximally. Left lower extremity: No significant stenosis of the left iliac system, common femoral, profunda femoral, superficial femoral and popliteal arteries. At the level of the abductor hiatus, there is a focally focal dilatation of the femoral vein and apparent contrast filling. 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 Venous contamination limits assessment of the tibial vessels. The anterior tibial artery appears to be patent and reaches the ankle. The tibioperoneal trunk is patent without significant stenosis. The peroneal artery appears to be patent without significant stenosis and reaches the ankle. The posterior tibial artery is not well seen distally, may occlude in the mid to distal leg. Nonvascular: There is edema of the bilateral lower extremities, left greater than right. A calcified 1 cm soft tissue mass is seen in the posterior deep distal thigh. There is a small amount of ascites fluid present. There is edema of the mesenteric and subcutaneous fat. The appendix is normal. No evidence of diverticulosis or diverticulitis. No small bowel distention. No free intraperitoneal gas. The liver, gallbladder, bile ducts, pancreas, spleen, adrenals, kidneys are all unremarkable. No retroperitoneal or mesenteric mass or adenopathy. No pelvic mass or adenopathy. Interim hysterectomy The bladder is equivocally somewhat thick walled despite being somewhat distended. There are small bilateral pleural effusions. The heart is enlarged. Reflux into the hepatic veins and inferior vena cava likely indicates central venous hypertension. Compressive atelectatic changes are seen at both lung bases. 3.7 cm fluid attenuation lesion is seen in the left breast. In retrospect, this may be evident on the previous exam. The pleural effusions, ascites fluid, basilar atelectasis, generalized edema, bladder wall thickening are all new finding since previous study. IMPRESSION: No evidence of suprageniculate stenosis on either side. 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 There is a venous varix of the femoral vein; this probably indicates level of the fistula The above findings were not described on the [facility] preliminary report. [facility] was notified of the discrepancy via their website and Dr. Fritz notified by phone. Narrowing of the celiac axis origin. This may be due to intrinsic arterial disease versus arcuate ligament compression Evidence of anasarca, with edema of the bilateral lower extremities, ascites fluid, edema of the mesenteric and subcutaneous fat, bilateral pleural effusions Cardiomegaly with evidence of central venous hypertension Basilar pulmonary compressive atelectatic changes 1 cm calcified soft tissue mass in the posterior deep distal thigh. Nonspecific, but could be related to stated clinical history of neurofibromatosis Equivocally somewhat thick walled bladder, could indicate cystitis 3.7 cm fluid attenuation lesion in the left breast, likely a cyst. Equivocally evident on previous study. Nonetheless recommended further evaluation with mammography and ultrasound Interim hysterectomy Findings discussed by phone with Dr. Fritz at the time of interpretation The CT scanner at [facility] is accredited by the [employer] and the scans are performed using protocols designed to limit radiation exposure to as low as reasonably achievable to attain images of sufficient resolution adequate for diagnostic evaluation.
[2018-05-17 16:00] VITALS: BP 126/89
--- NOTE | 2018-05-17 18:23 | Vascular Surgery Progress Note ---
Subjective Subjective No new complaints CT and duplex reviewed Objective Objective Last 24 Hour Vital Signs Date Time Temp Pulse Resp B/P (MAP) Pulse Ox O2 Delivery O2 Flow Rate FiO2 05/17/18 16:00 98.4 96 18 126/89 (101) 95 05/17/18 16:00 98 05/17/18 12:00 97.7 96 18 121/75 (90) 97 05/17/18 12:00 99 05/17/18 09:00 Nasal Cannula 2.0 05/17/18 08:00 92 05/17/18 08:00 98.1 90 18 138/82 (100) 97 05/17/18 04:00 98.4 96 18 142/83 (102) 97 05/17/18 04:00 93 05/17/18 00:00 97 05/17/18 00:00 98.1 97 18 133/87 (102) 97 05/16/18 21:00 Nasal Cannula 2.0 05/16/18 20:00 97.3 100 18 128/85 (99) 96 05/16/18 20:00 103 Intake and Output 05/16/18 05/17/18 19:00 07:00 Intake Total 582.270 ml 396.560 ml Balance 582.270 ml 396.560 ml Intake Oral 450 ml 240 ml IV Total 132.270 ml 156.560 ml # Voids 2 # Bowel Movements 1 Laboratory Tests Test 05/17/18 02:00 05/17/18 09:55 Activated Partial Thromboplast Time > 150 SEC (23-33) *H 126 SEC (23-33) H Height (Feet): 5 Height (Inches): 5.00 Weight (Pounds): 125 Objective cvs rrr lungs cta abd soft nontender 2+ femorals intact popliteal and DP strong by dopplers weaker PTs No ulcers no wounds Bilateral foot drops with Left leg weakness Assessment/Plan Assessment Cooler lower extremities with bilateral foot drops Left leg weakness Hx of craniotomy and brain tumor surgery at [facility] ? Multiple meningioma and neurofibromatosis Pulm edema and mild anasarca Strong DP pedal dopplers with 2 vessel run off on CT angio with no wounds no ulcers no foot pain Leg DVTs on venous duplex Plan Anticoagulate--high risk of dvts Neurology and neurosurgery f/u re her brain tumors Decub precautions Ok for d/c planning from vascular point once medically cleared Jovani Fritz MD May 17, 2018 18:23
[2018-05-17 20:00] VITALS: BP_SYST 130; BP_SYST 135; BP_DIAS 85; BP_DIAS 98
--- NOTE | 2018-05-17 21:45 | Consultation ---
DATE OF CONSULTATION: 05/16/2018 VASCULAR SURGERY CONSULTATION CONSULTING PHYSICIAN: Jovani Fritz M.D. REFERRING PHYSICIAN: Juan Snow M.D. REASON FOR CONSULTATION: Lower extremity coolness with temperature change. HISTORY OF PRESENT ILLNESS: This is a 48-year-old female, who had a prior history of a multiple meningioma, brain tumor, possible neurofibromatosis, and brain craniotomy surgery at [facility]. The patient was found to have a cold in her left worse than right leg with difficulty with movement of the lower extremity. Vascular Surgery is consulted for further evaluation. The patient has no other complaints. No leg pain. No foot pain. PAST MEDICAL HISTORY: As above. History of multiple brain tumors, neurofibromatosis, craniotomy surgery to [facility], history of stroke , foot drop, and left leg weakness. MEDICATIONS: See attached MAR. ALLERGIES: Penicillin and shellfish. SOCIAL HISTORY: Unobtainable. FAMILY HISTORY: Unobtainable. REVIEW OF SYSTEMS: Unobtainable due to altered mental status. PHYSICAL EXAMINATION: GENERAL: The patient is awake, but no complaints, difficult with her speech and hearing. VITAL SIGNS: She is afebrile at 97, heart rate is 80, blood pressure 138/68, and saturation 98% on room air. She has palpable radial pulses. NECK: No evidence of carotid bruits. LUNGS: Clear to auscultation. HEART: Regular rate and rhythm. ABDOMEN: Soft and nontender. EXTREMITIES: The patient has palpable femoral pulses and palpable popliteal pulses and dorsalis pedis pulses bilaterally. She has strong dorsalis pedis signals on both lower extremity. Posterior tibials are weaker. Her feet are cool bilaterally. She does have bilateral foot drop. Her left foot has minimal movement. She is moving more on her right leg. There is no distal ulceration. No wounds. LABORATORY AND DIAGNOSTIC DATA: Laboratory revealed WBC of 3.6, hemoglobin 15.2, and platelet count is 110,000. Sodium is 132, potassium 5.5, BUN is 18, creatinine 0.8, and glucose 98. IMPRESSION: 1. Lower extremity coolness with strong pedal Doppler's. 2. Bilateral foot drop with the left worse than right leg weakness from a prior history of craniotomy, brain tumor surgery at [facility], neurofibromatosis, and multiple meningioma by report. PLAN OF ACTION: 1. We will complete lower extremity duplex. 2. We will obtain a CT angiogram to evaluate her vasculopathy. 3. CT of the brain to assess for tumors. 4. Medical and Neurology evaluation optimization in progress. 5. Continue with decubitus and DVT precautions. Jovani Fritz M.D. DR: KELLY JOB#: [id number] CC:
[2018-05-18] VITALS: BP 130/95
[2018-05-18 04:00] VITALS: BP 134/90
[2018-05-18] MEDS ORDERED: Heparin 25,000u/D5W 500ml 500 ML IV SCH (06:15)
[2018-05-18] MEDS ORDERED: Heparin 5000 units/ml inj IV ONE (06:15)
[2018-05-18 08:00] VITALS: BP 149/106
[2018-05-18] MEDS: carBAMazepine 200mg tab ORAL SCH ×2 (08:20→11:52)
--- NOTE | 2018-05-18 08:37 | General Progress Note ---
Assessment/Plan Assessment/Plan IMPRESSION: Pulmonary hypertension, possible passive congestion associated anasarca, and neurofibromatosis. deaf, left leg discoloration, reduced circulation PLAN monitor lytes d/w cards- plan for right heart cath 05/27 d/w vascular- ok to discharge await ct and angiogram results change back to eliquis bid optimize d/w family -proceed with dc impression, plan, and exam edited and reviewed in detail care discussed with RN Subjective Allergies: Coded Allergies: PENICILLINS (Verified Allergy, Severe, 08/07/12) SHELLFISH DERIVED (Verified Allergy, Severe, 08/07/12) Subjective d/w vascular arterial us noted vascular appreciated and cleared for discharge Objective Last 24 Hour Vital Signs Date Time Temp Pulse Resp B/P (MAP) Pulse Ox O2 Delivery O2 Flow Rate FiO2 05/18/18 04:00 95 05/18/18 04:00 98.1 92 20 134/90 (105) 95 05/18/18 02:30 97.7 05/18/18 00:00 91 05/18/18 00:00 97.7 95 20 130/95 (107) 95 05/17/18 21:00 Nasal Cannula 2.0 05/17/18 20:00 98.9 96 20 130/98 (109) 95 05/17/18 20:00 93 05/17/18 16:00 98.4 96 18 126/89 (101) 95 05/17/18 16:00 98 05/17/18 12:00 97.7 96 18 121/75 (90) 97 05/17/18 12:00 99 05/17/18 09:00 Nasal Cannula 2.0 Intake and Output 05/17/18 05/18/18 18:59 06:59 Intake Total 671.033 ml 90.016 ml Output Total 250 ml Balance 421.033 ml 90.016 ml Intake Oral 600 ml IV Total 71.033 ml 90.016 ml Output Urine Total 250 ml # Voids 1 Laboratory Tests 05/17/18 09:55: Activated Partial Thromboplast Time 126H 05/17/18 17:18: Activated Partial Thromboplast Time 71H 05/18/18 04:00: Activated Partial Thromboplast Time 64H, Carbamazepine (Tegretol) Level 13.3*H Height (Feet): 5 Height (Inches): 5.00 Weight (Pounds): 125 Objective GENERAL: A well-developed female, in no significant distress. thin and same HEENT: Negative. Extraocular movements are grossly intact. deaf NECK: Supple. LUNGS: Otherwise fairly clear. Moderate air entry. CARDIAC: Normal S1, S2. Regular rate and rhythm. Positive P2. Soft systolic murmur at left parasternal border. ABDOMEN: Soft and nontender. EXTREMITIES: Noted edema, minimal; noted left leg colder NEUROLOGICAL: Otherwise grossly nonfocal. skin exam noted Juan Snow MD May 18, 2018 08:37
[2018-05-18] MEDS ORDERED: Eliquis 2.5mg tablet ORAL SCH (09:00)
[2018-05-18 12:00] VITALS: BP 149/98
[2018-05-18] MEDS ORDERED: ELIQUIS5 MG PO (14:00)
--- NOTE | 2018-05-20 23:12 | Diagnostic Imaging Report ---
APPROVED REPORT CPT Code: 14529 Symptoms Comments: Cold left foot VELOCITY MEASUREMENTS AND DOPPLER WAVEFORM ANALYSIS RIGHTcm/secWaveformSeverityLEFTcm/secWaveformSeverity Com Fem Art. 121.0TriphasicCom Fem Art. 132.0Triphasic Prof Fem Art. 106.0TriphasicProf Fem Art. 130.0Biphasic Fem Art Prox. 92.0TriphasicFem Art Prox. 138.0Triphasic Fem Art Mid. 109.0TriphasicFem Art Mid. 124.0Triphasic Fem Art Dist. 84.0TriphasicFem Art Dist. 123.0Triphasic Pop Art Prox. 65.0TriphasicPop Art Prox. 72.0Triphasic PSYCHOLOGICAL ANTHROPOLOGIST Prox. 50.0TriphasicPTA Prox. 19.0Monophasic Per Art Prox. 43.0TriphasicPer Art Prox. 30.0Biphasic RANDALL Prox. 45.0TriphasicATA Prox. 36.0Biphasic RIGHT LEG: Common femoral artery waveform analysis is within normal limits at rest. Color flow duplex sonography reveals patency of the superficial femoral and popliteal arteries. The tibioperoneal trunk is patent. The posterior tibial, anterior tibial and dorsalis pedis arteries are also patent. Doppler tibial artery waveform ( triphasic) analysis is within normal limits. LEFT LEG: Common femoral artery waveform analysis is within normal limits at rest. Color flow duplex sonography reveals patency of the superficial femoral and popliteal arteries. The tibioperoneal trunk was not well visualized. Could not rule out occlusion at this segment. The posterior tibial artery is patent with significantly low Doppler flow (monophasic) 19 cm/s. Doppler waveform analysis is biphasic and monophasic (anterior tibial and dorsalis pedis arteries) consistent with moderate ischemia at rest. Note: All the tibial artery Doppler velocity significantly dropped (Doppler study done on 05-14-18). MITESH López was notified of abnormal results at 1400 hours.
--- NOTE | 2018-05-20 23:12 | Diagnostic Imaging Report ---
APPROVED REPORT CPT Code: 46221 Present Symptoms Comments: Left foot cold RIGHT LEG: Venous imaging reveals chronic recanalized thrombus in the popliteal to calf veins. There is no evidence of thrombus within the common femoral vein and superficial femoral vein. Doppler indicates normal spontaneous flow within these segments. The greater saphenous vein is also within normal limits. Doppler indicates normal spontaneous flow within these segments. LEFT LEG: Venous imaging reveals a patent deep venous system. There is no evidence of thrombus within the femoral, popliteal or tibial segments. The greater saphenous vein is also within normal limits. Doppler indicates normal spontaneous flow within these segments. There is no evidence of acute deep vein thrombosis.
--- NOTE | 2018-05-20 23:13 | Diagnostic Imaging Report ---
APPROVED REPORT CPT Code: 40518 Present Symptoms Comments: Abnormal Labs BILATERAL UPPER EXTREMITY: Imaging reveals patency of the internal jugular, subclavian, axillary and brachial veins. The cephalic and basilic veins are also patent. Doppler indicates normal spontaneous flow within these venous segments, bilaterally.
--- NOTE | 2018-05-20 23:14 | Diagnostic Imaging Report ---
APPROVED REPORT CPT Code: 20762 Symptoms Comments: Abnormal labs Comments Edema VELOCITY MEASUREMENTS AND DOPPLER WAVEFORM ANALYSIS RIGHTcm/secWaveformSeverityLEFTcm/secWaveformSeverity Com Fem Art. 120.0TriphasicCom Fem Art. 100.0Triphasic Prof Fem Art. 73.0TriphasicProf Fem Art. 107.0Vasodilated Fem Art Prox. 63.0BiphasicFem Art Prox. 115.0Vasodilated Fem Art Dist. 58.0BiphasicFem Art Dist. 112.0Vasodilated Pop Art Prox. 36.0BiphasicPop Art Prox. 104.0Vasodilated STILL OPERATOR HELPER Prox. 46.0BiphasicPTA Prox. 48.0Vasodilated Per Art Prox. 29.0BiphasicPer Art Prox. 71.0Vasodilated RANDALL Prox. 29.0BiphasicATA Prox. 73.0Vasodilated RIGHT LEG: Common femoral artery waveform analysis is within normal limits at rest. Color flow duplex sonography reveals patency of the superficial femoral and popliteal, arteries. The tibioperoneal trunk is patent. The posterior tibial, anterior tibial and dorsalis pedis arteries are also patent. Doppler tibial artery waveform (biphasic) analysis is within normal limits. Note: The Doppler velocity in the tibial arteries are low. LEFT LEG: Common femoral artery waveform analysis is within normal limits at rest. Color flow duplex sonography reveals patency of the superficial femoral and popliteal, arteries. The tibioperoneal trunk is patent. The posterior tibial, anterior tibial and dorsalis pedis arteries are also patent. Doppler tibial artery waveform ( monophasic) analysis is within normal limits. Note: The Doppler veolocity is vesodilated due to severe edema.
--- NOTE | 2018-05-20 23:14 | Diagnostic Imaging Report ---
APPROVED REPORT CPT Code: 40361 Present Symptoms Comments: Abnormal labs RIGHT LEG: Venous imaging reveals chronic recanalized thrombus in the popliteal to calf veins. There is no evidence of thrombus within the common femoral vein and superficial femoral vein. Doppler indicates normal spontaneous flow within these segments. The greater saphenous vein is also within normal limits. Doppler indicates normal spontaneous flow within these segments. LEFT LEG: Venous imaging reveals a patent deep venous system. There is no evidence of thrombus within the femoral, popliteal or tibial segments. The greater saphenous vein is also within normal limits. Doppler indicates normal spontaneous flow within these segments. There is no evidence of acute deep vein thrombosis.
== END 2018-05-18 15:30 | disposition home health service (06) | DRG 316 ==
LOC: EMR 08:59 → EDBEDREQ 10:23 → 2E 10:36 → EDBEDREQ 11:12
DX: I27.20 Pulmonary hypertension, unspecified (principal); R60.1 Generalized edema; Q85.00 Neurofibromatosis, unspecified; H91.90 Unspecified hearing loss, unspecified ear; M21.372 Foot drop, left foot; M21.371 Foot drop, right foot; Z88.0 Allergy status to penicillin
CPT/HCPCS: 36415; 70450; 71045; 75635; 78579; 78580; 80048; 80053; 80156; 80307; 81003; 82550; 82553; 83605; 83880; 84484; 85007; 85025; 85730; 87086; 93005; 93306; 93925; 93970; 96365; 99285; A9503; J2405

== ENCOUNTER 2018-06-02 12:31 | Inpatient (IN) | payer MEDICARE, MEDICAID ==
[~2018-06-02] VITALS: Ht 170.2 cm; Wt 65.8 kg
[~2018-06-02 12:31] MED LIST changes: +ELIQUIS5 MG PO; +GABAPENTIN100 MG ORAL
[2018-06-02 12:35] VITALS: BP 148/79
--- NOTE | 2018-06-02 14:24 | Diagnostic Imaging Report ---
Indications: Seizure activity Technique: Spiral acquisitions obtained through the brain. Angled axial and coronal 5 x 5 mm slices were reconstructed. Total dose length product 2846.96 mGycm. CTDI vol(s) 70.38,70.38 mGy. Dose reduction achieved using automated exposure control Comparison: 05/16/2018 Findings: There is considerable image degradation due to streak artifact. Innumerable dense and calcified extra-axial masses are again demonstrated. There is edema in the right high parietal and anterior frontal deep white matter, presumably related to the large lesion at the right vertex. This appears similar to the previous exam. Resultant mass effect, manifested by attenuation of the body of the right lateral ventricle, appears similar to the previous study. Edema of the left cerebellar hemisphere again demonstrated, with multiple extra-axial masses seen in the posterior fossa. There is rightward shift of the fourth ventricle. There is a right temporoparietal craniotomy/craniectomy defect again demonstrated. No acute intracranial hemorrhage demonstrated. There is no significant interim change from the previous study Metallic densities are seen at the anterior optic globes, also evident previously. The sinuses are clear. The mastoids are clear. Impression: Multiple meningiomas, presumably related to previously reported history of type II neurofibromatosis. Mass effect and edema in the right convexity deep white matter, left cerebellar hemisphere, as described above and previously Negative for acute intracranial bleed or mass effect Evidence of prior craniotomy/craniectomy No significant change from earlier exam of 05/16/[address] scanner at [facility] is accredited by the [employer] and the scans are performed using protocols designed to limit radiation exposure to as low as reasonably achievable to attain images of sufficient resolution adequate for diagnostic evaluation.
--- NOTE | 2018-06-02 14:29 | Emergency Room Report ---
History of Present Illness General Chief Complaint: Seizure Source: Patient, Family Member, EMS (DILLON WILKINS M.D) Present Illness HPI 48-year-old female with history of seizures on gabapentin and Tegretol, for seizure disorder, with a history of neurofibromatosis and multiple cranial resections, also on Audra Shen for what family member reports his edema, no history of blood clots or arrhythmias. He is minimally verbal, and also deaf, had a witnessed seizure at home prior to arrival, apparently patient fell backwards, probably bleed her head, but did not sustain any obvious injuries according to family. She is a patient of Dr. Snow, and family is concerned that she's been having increasing edema all over. (DILLON WILKINS M.D) Allergies: Coded Allergies: PENICILLINS (Verified Allergy, Severe, 08/07/12) SHELLFISH DERIVED (Verified Allergy, Severe, 08/07/12) Patient History Limited by: medical condition (DILLON WILKINS M.D) Nursing Documentation-[facility] Past Medical History: No History, Except For Hx Hypertension: No Hx Pacemaker: No Hx Asthma: No Hx COPD: No Hx Diabetes: No Hx Cancer: No Hx Gastrointestinal Problems: No Hx Dialysis: No Hx Neurological Problems: Yes - Neurofibrosis Hx Cerebrovascular Accident: No Hx Seizures: Yes Hx Vertigo: Yes Hx Neurologic Surgery: Yes - 1989, 1994 TUMOR REMOVAL (DILLON WILKINS M.D) Review of Systems All Other Systems: limited (DILLON WILKINS M.D) Physical Exam Vital Signs Date Time Temp Pulse Resp B/P (MAP) Pulse Ox O2 Delivery O2 Flow Rate FiO2 06/02/18 12:25 98.4 108 16 140/70 99 Non-Rebreather 10.0 Sp02 EP Interpretation: reviewed, normal General Appearance: no apparent distress, alert, non-toxic Head: normocephalic, atraumatic Eyes: bilateral eye normal inspection, bilateral eye EOMI - grossly with some limitation ENT: normal ENT inspection, normal pharynx, no angioedema, moist mucus membranes Neck: normal inspection, full range of motion, supple, no meningismus, no bony tend, supple/symm/no masses Respiratory: chest non-tender, lungs clear, normal breath sounds, chest symmetrical, palpation of chest normal Cardiovascular #1: normal peripheral pulses, regular rate, rhythm, edema - 2+ B /l LE Cardiovascular #2: 2+ radial (R), 2+ radial (L) Gastrointestinal: normal inspection, non tender, soft, no mass, no guarding, no rebound Rectal: deferred Genitourinary: normal inspection, no CVA tenderness Musculoskeletal: back normal, gait/station normal, normal range of motion, non- tender, no calf tenderness Neurologic: alert, responsive, motor strength/tone normal - weakness diffusely but B/L LE >B/L UE, sensory intact Skin: normal color, no rash, warm/dry - cool to B/L LE, normal turgor Lymphatic: no adenopathy (DILLON WILKINS M.D) Medical Decision Making Diagnostic Impression: Primary Impression: Seizure disorder Additional Impression: Edema ER Course Patient with breakthrough seizure, also unclear as to reason for her anticoagulation, she does have likely poor circulation in her lower extremities , and is bedbound, patient will be admitted, head CT unremarkable with no changes from previous, no acute injuries or bleeds. (DILLON WILKINS M.D) ER Course Patient presents emergency department today with seizure and complaints of swelling. Patient appears to have evidence of edema. Patient primary care physician is Dr. Juan Snow. Symptoms appear to be fairly severe. No other complaints are noted. Differential diagnoses include acute CHF, fluid overload , kidney failure just to name a few. Laboratory workup was reviewed chest x- ray reviewed EKG reviewed prior medical records are also reviewed. This is a highly complex case. Patient will require admission. Case was also discussed with Dr. Juan Snow. Patient's laboratory workup is consistent with acute CHF or fluid overload. Chest x-ray shows left-sided pleural effusion and a globular heart. Patient did have a seizure therefore CT scan was obtained. Patient will be admitted to telemetry for further treatment. Labs Test 06/02/18 14:10 White Blood Count 5.3 K/UL (4.8-10.8) Red Blood Count 4.66 M/UL (4.20-5.40) Hemoglobin 13.8 G/DL (12.0-16.0) Hematocrit 42.8 % (37.0-47.0) Mean Corpuscular Volume 92 FL (80-99) Mean Corpuscular Hemoglobin 29.7 PG (27.0-31.0) Mean Corpuscular Hemoglobin Concent 32.3 G/DL (32.0-36.0) Red Cell Distribution Width 13.0 % (11.6-14.8) Platelet Count 200 K/UL (150-450) Mean Platelet Volume 8.0 FL (6.5-10.1) Neutrophils (%) (Auto) 70.7 % (45.0-75.0) Lymphocytes (%) (Auto) 17.6 % (20.0-45.0) Monocytes (%) (Auto) 10.3 % (1.0-10.0) Eosinophils (%) (Auto) 0.1 % (0.0-3.0) Basophils (%) (Auto) 1.3 % (0.0-2.0) Sodium Level 135 MMOL/L (136-145) Potassium Level 4.8 MMOL/L (3.5-5.1) Chloride Level 101 MMOL/L (98-107) Carbon Dioxide Level 27 MMOL/L (21-32) Anion Gap 7 mmol/L (5-15) Blood Urea Nitrogen 19 mg/dL (7-18) Creatinine 0.8 MG/DL (0.55-1.30) Estimat Glomerular Filtration Rate > 60 mL/min (>60) Glucose Level 122 MG/DL (74-106) Calcium Level 8.8 MG/DL (8.5-10.1) Total Bilirubin 1.6 MG/DL (0.2-1.0) Direct Bilirubin 0.9 MG/DL (0.0-0.3) Aspartate Amino Transf (AST/SGOT) 36 U/L (15-37) Alanine Aminotransferase (ALT/SGPT) 30 U/L (12-78) Alkaline Phosphatase 170 U/L (46-116) Pro-B-Type Natriuretic Peptide 5520 pg/mL (0-125) Total Protein 7.9 G/DL (6.4-8.2) Albumin 3.0 G/DL (3.4-5.0) Globulin 4.9 g/dL Albumin/Globulin Ratio 0.6 (1.0-2.7) Carbamazepine (Tegretol) Level 15.2 ug/mL (4.0-12.0) (Yazan Crenshaw MD) EKG Diagnostic Results EKG Time: 13:08 EP Interpretation: no stemi Rate: normal Rhythm: NSR ST Segments: no acute changes (WILKINS,DILLON M.D) Rate: tachycardiac Rhythm: NSR ST Segments: other - invert t 3, avf (Yazan Crenshaw MD) Rhythm Strip Diag. Results Rhythm Strip Time: 14:26 EP Interpretation: yes Rate: 101 Rhythm: no PVC's, no ectopy (DILLON WILKINS M.D) EP Interpretation: yes Rate: 109 (Yazan Crenshaw MD) Chest X-Ray Diagnostic Results Chest X-Ray Diagnostic Results : Chest X-Ray Ordered: Yes # of Views/Limited/Complete: 1 View Indication: Shortness of Breath EP Interpretation: No Interpretation: other - Left-sided pleural effusion (Yazan Crenshaw MD) CT/MRI/US Diagnostic Results CT/MRI/US Diagnostic Results : Imaging Test Ordered: ct head Impression no change from previous; no acute bleed; + meningiomas (DILLON WILKINS M.D) Last Vital Signs Date Time Temp Pulse Resp B/P (MAP) Pulse Ox O2 Delivery O2 Flow Rate FiO2 06/02/18 12:35 106 21 Nasal Cannula 2.0 06/02/18 12:35 98.4 148/79 97 (DILLON WILKINS M.D) Status: improved (Yazan Crenshaw MD) Disposition: ADMITTED INPATIENT Condition: Serious Referrals: NON PHYSICIAN (PCP) DILLON WILKINS M.D Jun 02, 2018 14:29 Yazan Crenshaw MD Jun 02, 2018 14:49
[2018-06-02 14:30] VITALS: BP 122/70
[2018-06-02 14:39] LABS: BASOPHILS % (AUTO) 1.3 % (0.0-2.0); EOSINOPHILS % (AUTO) 0.1 % (0.0-3.0); HEMATOCRIT 42.8 % (37.0-47.0); HEMOGLOBIN 13.8 G/DL (12.0-16.0); LYMPHOCYTES % (AUTO) 17.6 % (20.0-45.0); MEAN CORPUSCULAR VOLUME 92 FL (80-99); MONOCYTES % (AUTO) 10.3 % (1.0-10.0); NEUTROPHILS % (AUTO) 70.7 % (45.0-75.0); PLATELET COUNT 200 K/UL (150-450); RED BLOOD COUNT 4.66 M/UL (4.20-5.40); WHITE BLOOD COUNT 5.3 K/UL (4.8-10.8)
--- NOTE | 2018-06-02 15:04 | Diagnostic Imaging Report ---
Indication: Shortness of breath Technique: One view of the chest Comparison: 05/14/2018 Findings: There is some atelectasis and possibly some hazy parenchymal consolidation at the right lung base. There is pleural fluid the left lung base. Inspiration is suboptimal. The upper lungs are clear. Impression: Left-sided pleural effusion, not evident previously Right basilar atelectasis and possible hazy right basilar parenchymal opacity
[2018-06-02 15:06] LABS: CHLORIDE 101 MMOL/L (98-107); POTASSIUM 4.8 MMOL/L (3.5-5.1)
[2018-06-02 15:18] LABS: ANION GAP 7 mmol/L (5-15); BLOOD UREA NITROGEN 19 mg/dL (7-18); CALCIUM 8.8 MG/DL (8.5-10.1); CARBON DIOXIDE 27 MMOL/L (21-32); CREATININE 0.8 MG/DL (0.55-1.30); SODIUM 135 MMOL/L (136-145)
[2018-06-02 15:29] LABS: ALANINE AMINOTRANSFERASE 30 U/L (12-78); ALBUMIN/GLOBULIN RATIO 0.6 (1.0-2.7); ALKALINE PHOSPHATASE 170 U/L (46-116); ASPARTATE AMINO TRANSFERASE 36 U/L (15-37); BILIRUBIN,TOTAL 1.6 MG/DL (0.2-1.0)
[2018-06-02 15:31] LABS: BILIRUBIN,DIRECT 0.9 MG/DL (0.0-0.3)
[2018-06-02 16:53] VITALS: BP 132/93
[2018-06-02 17:45] VITALS: BP 121/79
[2018-06-02] MEDS: carBAMazepine 200mg tab ORAL SCH (18:09)
[2018-06-02 20:00] VITALS: BP 121/79
[2018-06-02] MEDS: Heparin 5000 units/ml inj SUBQ SCH (21:26)
[2018-06-03] VITALS: BP 109/75
[2018-06-03 04:00] VITALS: BP 139/73
[2018-06-03 07:22] LABS: BASOPHILS % (AUTO) 1.4 % (0.0-2.0); EOSINOPHILS % (AUTO) 0.2 % (0.0-3.0); HEMATOCRIT 41.9 % (37.0-47.0); HEMOGLOBIN 13.5 G/DL (12.0-16.0); LYMPHOCYTES % (AUTO) 20.6 % (20.0-45.0); MEAN CORPUSCULAR VOLUME 93 FL (80-99); MONOCYTES % (AUTO) 10.1 % (1.0-10.0); NEUTROPHILS % (AUTO) 67.6 % (45.0-75.0); PLATELET COUNT 188 K/UL (150-450); RED BLOOD COUNT 4.51 M/UL (4.20-5.40); RED CELL DISTRIBUTION WIDTH 13.2 % (11.6-14.8); WHITE BLOOD COUNT 4.4 K/UL (4.8-10.8)
[2018-06-03 07:44] LABS: ANION GAP 8 mmol/L (5-15); BLOOD UREA NITROGEN 19 mg/dL (7-18); CARBON DIOXIDE 28 MMOL/L (21-32); CHLORIDE 101 MMOL/L (98-107); CREATININE 0.8 MG/DL (0.55-1.30); POTASSIUM 4.4 MMOL/L (3.5-5.1); SODIUM 137 MMOL/L (136-145)
[2018-06-03 08:00] VITALS: BP 119/78
[2018-06-03] MEDS: carBAMazepine 200mg tab ORAL SCH ×3 (08:47→17:17)
[2018-06-03] MEDS: Heparin 5000 units/ml inj SUBQ SCH ×2 (08:49→21:28)
[2018-06-03 11:59] VITALS: BP 121/70
[2018-06-03] MEDS ORDERED: Varibar Pudding 230ml MC PRN (13:15)
[2018-06-03] MEDS ORDERED: Varibar Honey 250ml MC PRN (13:15)
[2018-06-03] MEDS ORDERED: Varibar Nectar 240ml MC PRN (13:15)
[2018-06-03 16:00] VITALS: BP 127/75
[2018-06-03 20:00] VITALS: BP 125/76
--- NOTE | 2018-06-03 23:30 | History and Physical Report ---
DATE OF ADMISSION: 06/02/2018 REASON FOR ADMISSION: Pulmonary hypertension, fluid overload. HISTORY OF PRESENT ILLNESS: The patient is a 48-year-old female with history of seizures, history of severe pulmonary hypertension, history of neurofibromatosis, and has had prior neurological resections. The patient with recent admission for fluid overload. The patient apparently had a witnessed seizure at home but no obvious injury. The patient was seen and evaluated for further intervention. She was noted to be increasingly edematous at present, now being admitted for further ongoing management and intervention. The patient did undergo a CT of the head showing multiple meningiomas, but no evidence of mass effect, no evidence of bleed. The patient otherwise comfortable and stable with no significant distress. The patient did recently underwent a right heart catheterization suggestive of significant pulmonary arterial hypertension and is awaiting medications. The patient's care discussed and reviewed. PAST MEDICAL HISTORY: Notable for pulmonary hypertension, severe neurofibromatosis, multiple meningiomas, multiple cranial resection, seizure disorder, history of vertigo, deaf. MEDICATIONS: Reviewed. ALLERGIES: Reviewed. SOCIAL HISTORY: The patient disabled. Nonsmoker and nondrinker. Lives with family. REVIEW OF SYSTEMS: All 10-points reviewed. The patient with failure to thrive overall. PHYSICAL EXAMINATION: GENERAL: Well-developed female, somewhat thin. VITAL SIGNS: Temperature 97, pulse 95, respiratory rate 21, blood pressure 119/78, sats 95% HEENT: Negative. Extraocular movements are grossly intact NECK: Supple. No jugular venous distention. LUNGS: Moderate breath sounds. No rhonchi or wheezes. CARDIAC: Normal S1 and S2. Regular rate and rhythm. Positive P2. No murmurs or rubs. ABDOMEN: Soft, nontender, nondistended. EXTREMITIES: No cyanosis, clubbing, or edema. NEUROLOGIC: Grossly nonfocal. LABORATORY DATA: Reviewed. Bilirubin 1.6. BNP 5520. Albumin is 3. Electrolytes otherwise fairly negative. CBC otherwise fairly negative. X-ray with new pleural effusion. IMPRESSION: 1. Fluid overload, 2. Elevated natriuretic peptide. 3. Severe pulmonary hypertension. 4. Seizure disorder. 5. Neurofibromatosis. RECOMMENDATIONS: 1. Supportive care. 2. Resume medication. 3. DVT prophylaxis. 4. Intravenous Lasix. 5. Follow up x-ray and follow up exam. 6. Awaiting medication for pulmonary hypertension. 7. We will update family. Juan Snow M.D. DR: Felecia JOB#: [id number] CC: ADONIS
[2018-06-04] VITALS (8 sets, daily range): BP systolic 112–138; BP diastolic 76–90
--- NOTE | 2018-06-04 07:22 | General Progress Note ---
Assessment/Plan Assessment/Plan IMPRESSION: 1. Fluid overload, pleural effusion 2. Elevated natriuretic peptide. 3. Severe pulmonary hypertension. 4. Seizure disorder. 5. Neurofibromatosis. 6. swallowing dysfunction PLAN diurese swallow evaluation monitor imaging and effusion d/w family hope to start ERA and PDE5 for pulmonary hypertension monitor on tele for now impression, plan, and exam edited and reviewed in detail care discussed with RN Subjective Allergies: Coded Allergies: PENICILLINS (Verified Allergy, Severe, 08/07/12) FISH CONTAINING PRODUCTS (Verified Allergy, Unknown, 06/02/18) Uncoded Allergies: seafood (Allergy, Unknown, 06/02/18) Subjective care noted and reviewed stable some difficulty with swallowing Objective Last 24 Hour Vital Signs Date Time Temp Pulse Resp B/P (MAP) Pulse Ox O2 Delivery O2 Flow Rate FiO2 06/04/18 04:00 100 06/04/18 03:59 98.0 18 112/76 (88) 95 06/04/18 00:00 108 06/04/18 00:00 100.4 19 124/76 (92) 99 06/03/18 21:00 Nasal Cannula 2.0 06/03/18 20:00 120 06/03/18 20:00 97.0 20 125/76 (92) 19 06/03/18 16:00 97.0 20 127/75 (92) 96 06/03/18 15:53 106 06/03/18 11:59 98.0 98 20 121/70 (87) 96 06/03/18 11:53 102 06/03/18 09:00 Nasal Cannula 2.0 06/03/18 08:00 97.0 95 21 119/78 (92) 95 06/03/18 07:44 94 Intake and Output 06/03/18 06/04/18 19:00 07:00 Intake Total 200 ml Output Total 700 ml 100 ml Balance -500 ml -100 ml Intake Oral 200 ml Output Urine Total 700 ml 100 ml # Voids 2 Height (Feet): 5 Height (Inches): 7.00 Weight (Pounds): 145 Objective GENERAL: Well-developed female, somewhat thin. HEENT: Negative. Extraocular movements are grossly intact NECK: Supple. No jugular venous distention. LUNGS: Moderate breath sounds. No rhonchi or wheezes. stable CARDIAC: Normal S1 and S2. Regular rate and rhythm. Positive P2. No murmurs or rubs. ABDOMEN: Soft, nontender, nondistended. EXTREMITIES: No cyanosis, clubbing, or edema. NEUROLOGIC: Grossly nonfocal. deaf Juan Snow MD Jun 04, 2018 07:22
[2018-06-04] MEDS: carBAMazepine 200mg tab ORAL SCH ×3 (08:10→17:16)
[2018-06-04] MEDS: Heparin 5000 units/ml inj SUBQ SCH ×2 (08:11→21:41)
[2018-06-05] VITALS: BP 119/79
[2018-06-05 04:00] VITALS: BP 127/93
[2018-06-05 08:00] VITALS: BP 147/92
[2018-06-05] MEDS: carBAMazepine 200mg tab ORAL SCH ×3 (08:34→17:41)
[2018-06-05] MEDS: Heparin 5000 units/ml inj SUBQ SCH ×2 (08:39→20:24)
--- NOTE | 2018-06-05 09:40 | General Progress Note ---
Assessment/Plan Assessment/Plan IMPRESSION: 1. Fluid overload, pleural effusion 2. Elevated natriuretic peptide. 3. Severe pulmonary hypertension. 4. Seizure disorder. 5. Neurofibromatosis. 6. swallowing dysfunction PLAN diurese venous US speech follow up dc planning hope to start ERA and PDE5 for pulmonary hypertension monitor on tele for now impression, plan, and exam edited and reviewed in detail care discussed with RN Subjective Allergies: Coded Allergies: PENICILLINS (Verified Allergy, Severe, 08/07/12) FISH CONTAINING PRODUCTS (Verified Allergy, Unknown, 06/02/18) Uncoded Allergies: seafood (Allergy, Unknown, 06/02/18) Subjective care noted and reviewed notes some leg edema comfortable Objective Last 24 Hour Vital Signs Date Time Temp Pulse Resp B/P (MAP) Pulse Ox O2 Delivery O2 Flow Rate FiO2 06/05/18 08:00 98.6 103 18 147/92 (110) 98 06/05/18 04:00 94 06/05/18 04:00 97.0 92 18 127/93 (104) 95 06/05/18 00:00 98.9 98 19 119/79 (92) 96 06/05/18 00:00 98 06/04/18 21:00 Nasal Cannula 2.0 06/04/18 20:00 100.3 105 18 116/84 (95) 95 06/04/18 20:00 105 06/04/18 16:00 105 06/04/18 16:00 97.7 102 20 116/80 (92) 97 06/04/18 12:01 97.6 94 18 126/90 (102) 96 06/04/18 12:00 95 Intake and Output 06/04/18 06/05/18 19:00 07:00 Intake Total 480 ml Output Total 1000 ml Balance -520 ml Intake Oral 480 ml Output Urine Total 1000 ml # Voids 1 2 Laboratory Tests 06/05/18 08:51: Carbamazepine (Tegretol) Level [Pending] Height (Feet): 5 Height (Inches): 7.00 Weight (Pounds): 145 Objective GENERAL: Well-developed female, somewhat thin. HEENT: Negative. Extraocular movements are grossly intact NECK: Supple. No jugular venous distention. LUNGS: Moderate breath sounds. No rhonchi or wheezes. stable CARDIAC: Normal S1 and S2. Regular rate and rhythm. Positive P2. No murmurs or rubs. ABDOMEN: Soft, nontender, nondistended. EXTREMITIES: No cyanosis, clubbing, mild edema. NEUROLOGIC: Grossly nonfocal. deaf Juan Snow MD Jun 05, 2018 09:40
[2018-06-05 12:00] VITALS: BP 119/79
[2018-06-05] MEDS: Docusate 100mg cap ORAL SCH ×2 (12:43→17:41)
[2018-06-05 16:00] VITALS: BP 122/92
[2018-06-05 20:00] VITALS: BP 133/94
[2018-06-06] VITALS (7 sets, daily range): BP systolic 113–138; BP diastolic 78–96
[2018-06-06] MEDS: Docusate 100mg cap ORAL SCH ×3 (08:23→17:37)
[2018-06-06] MEDS: carBAMazepine 200mg tab ORAL SCH ×3 (08:23→17:37)
[2018-06-06] MEDS: Heparin 5000 units/ml inj SUBQ SCH ×2 (08:31→21:27)
--- NOTE | 2018-06-06 08:33 | General Progress Note ---
Assessment/Plan Assessment/Plan IMPRESSION: 1. Fluid overload, pleural effusion 2. Elevated natriuretic peptide. 3. Severe pulmonary hypertension. 4. Seizure disorder. 5. Neurofibromatosis. 6. swallowing dysfunction PLAN diurese as able venous US pending speech follow up dc planning in am hope to start ERA and PDE5 for pulmonary hypertension monitor on tele for now impression, plan, and exam edited and reviewed in detail care discussed with RN Subjective Allergies: Coded Allergies: PENICILLINS (Verified Allergy, Severe, 08/07/12) FISH CONTAINING PRODUCTS (Verified Allergy, Unknown, 06/02/18) Uncoded Allergies: seafood (Allergy, Unknown, 06/02/18) Subjective care noted and reviewed mild leg edema comfortable Objective Last 24 Hour Vital Signs Date Time Temp Pulse Resp B/P (MAP) Pulse Ox O2 Delivery O2 Flow Rate FiO2 06/06/18 08:00 98.3 93 18 120/89 (99) 93 06/06/18 04:00 90 06/06/18 04:00 96.9 89 18 130/91 (104) 98 06/06/18 01:00 95 06/06/18 00:00 98.3 94 18 138/96 (110) 98 06/05/18 21:00 Nasal Cannula 2.0 06/05/18 20:59 100 06/05/18 20:00 96.6 100 18 133/94 (107) 94 06/05/18 16:00 97.7 96 18 122/92 (102) 98 06/05/18 16:00 95 06/05/18 12:00 98.4 98 18 119/79 (92) 99 06/05/18 12:00 95 06/05/18 09:00 Nasal Cannula 2.0 Intake and Output 06/05/18 06/06/18 19:00 07:00 Intake Total 420 ml Balance 420 ml Intake Oral 420 ml # Voids 2 2 # Bowel Movements 1 Laboratory Tests 06/05/18 08:51: Carbamazepine (Tegretol) Level 12.1*H Height (Feet): 5 Height (Inches): 7.00 Weight (Pounds): 145 Objective GENERAL: Well-developed female, somewhat thin. HEENT: Negative. Extraocular movements are grossly intact NECK: Supple. No jugular venous distention. LUNGS: Moderate breath sounds. No rhonchi or wheezes. stable CARDIAC: Normal S1 and S2. Regular rate and rhythm. Positive P2. No murmurs or rubs. ABDOMEN: Soft, nontender, nondistended. EXTREMITIES: No cyanosis, clubbing, mild edema. NEUROLOGIC: Grossly nonfocal. deaf Juan Snow MD Jun 06, 2018 08:33
--- NOTE | 2018-06-06 09:09 | Diagnostic Imaging Report ---
EXAM: XR Chest, 1 View CLINICAL HISTORY: SOB TECHNIQUE: Frontal view of the chest. COMPARISON: 06/02/18. FINDINGS/impression: Left basilar opacity is again noted, likely a combination of small to moderate left pleural effusion with associated atelectasis. Suspect a component of consolidation as well. Small right pleural effusion.
[2018-06-07] VITALS: BP 131/77
[2018-06-07 04:00] VITALS: BP 132/91
[2018-06-07 08:00] VITALS: BP 123/68
[2018-06-07] MEDS: Docusate 100mg cap ORAL SCH ×2 (08:35→12:17)
[2018-06-07] MEDS: carBAMazepine 200mg tab ORAL SCH ×2 (08:35→12:17)
--- NOTE | 2018-06-07 08:36 | General Progress Note ---
Assessment/Plan Assessment/Plan IMPRESSION: 1. Fluid overload, pleural effusion 2. Elevated natriuretic peptide. 3. Severe pulmonary hypertension. 4. Seizure disorder. 5. Neurofibromatosis. 6. swallowing dysfunction PLAN diurese as able venous US pending speech follow up dc planning in am hope to start ERA and PDE5 for pulmonary hypertension monitor on tele for now impression, plan, and exam edited and reviewed in detail care discussed with RN Subjective Allergies: Coded Allergies: PENICILLINS (Verified Allergy, Severe, 08/07/12) FISH CONTAINING PRODUCTS (Verified Allergy, Unknown, 06/02/18) Uncoded Allergies: seafood (Allergy, Unknown, 06/02/18) Subjective care noted and reviewed trace leg edema comfortable Objective Last 24 Hour Vital Signs Date Time Temp Pulse Resp B/P (MAP) Pulse Ox O2 Delivery O2 Flow Rate FiO2 06/07/18 04:00 97.8 82 18 132/91 (105) 100 06/07/18 00:00 97.7 98 18 131/77 (95) 98 06/06/18 22:40 97.2 95 18 127/91 (103) 99 06/06/18 21:00 Nasal Cannula 2.0 06/06/18 20:00 98.0 96 16 120/87 (98) 94 06/06/18 20:00 99 06/06/18 16:00 100 06/06/18 16:00 97.9 103 18 113/78 (90) 97 06/06/18 12:00 98.7 93 19 138/91 (107) 98 06/06/18 12:00 96 06/06/18 09:00 Nasal Cannula 2.0 Intake and Output 06/06/18 06/07/18 19:00 07:00 Intake Total 370 ml 50 ml Output Total 400 ml Balance -30 ml 50 ml Intake Oral 370 ml 50 ml Output Urine Total 400 ml # Voids 1 # Bowel Movements 1 Height (Feet): 5 Height (Inches): 7.00 Weight (Pounds): 145 Objective GENERAL: Well-developed female, somewhat thin. HEENT: Negative. Extraocular movements are grossly intact NECK: Supple. No jugular venous distention. LUNGS: Moderate breath sounds. No rhonchi or wheezes. stable CARDIAC: Normal S1 and S2. Regular rate and rhythm. Positive P2. No murmurs or rubs. ABDOMEN: Soft, nontender, nondistended. EXTREMITIES: No cyanosis, clubbing, mild edema. NEUROLOGIC: Grossly nonfocal. deaf Juan Snow MD Jun 07, 2018 08:36
[2018-06-07] MEDS ORDERED: Heparin 5000 units/ml inj SUBQ SCH (09:00)
[2018-06-07 12:00] VITALS: BP 127/88
[2018-06-07] MEDS ORDERED: Flu Vaccine (Alfuria) for Pts Less than 65 Years old IM ONE (16:00)
--- NOTE | 2018-06-08 11:00 | Discharge Summary ---
Discharge Summary Discharge Summary _ DATE OF ADMISSION: 06/02/2018 DATE OF DISCHARGE: 06/07/2018 REASON FOR ADMISSION: 48 years old female with past medical history of neurofibromatosis with multiply neurological resections, seizure disorder, severe pulmonary hypertension, recent admission for fluid overload, apparently had a witnessed seizure at home, but no obvious injury. Patient was presented to emergency department for further evaluation and management. Vital signs revealed mild tachycardia. Patient required initially placement of 100% nonrebreathing mask. Laboratory workup revealed no leukocytosis, stable hemoglobin and hematocrit. Electrolytes and renal parameters stable. Troponin negative. Pro BNP 5520. 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 Mass effect and edema in the right convexity deep white matter, left cerebellar hemisphere, as described above and previously Negative for acute intracranial bleed or mass effect Evidence of prior craniotomy/craniectomy No significant change from earlier exam of 05/16/2018 Chest x-ray demonstrated left-sided pleural effusion, not evident previously. Right basilar atelectasis and possible hazy right basilar parenchymal opacity. Patient admitted with diagnosis of fluid overload, elevated pro BNP, severe pulmonary hypertension, seizure disorder , neurofibromatosis. HOSPITAL COURSE: Patient admitted to medical surgical floor. Home medications resumed. Diuresis started with intravenous Lasix. Volumes and cardiorenal parameters were closely monitored. Echocardiogram on previous admission revealed evidence of severe pulmonary hypertension. Patient currently in the process of waiting to start ERA and PDE 5 for pulmonary hypertension. Seizure precaution maintained. Tegretol level trending down. No further seizure activity while in the hospital. Recommended outpatient follow-up with neurologist. DVT prophylaxis provided. Bedside swallow evaluation was done and revealed evidence of dysphagia . Subsequently video swallow evaluation was done and revealed moderate to moderately severe dysphagia. Diet downgraded as per speech therapist recommendations. Strict aspiration /reflux precautions were maintained. Patient started on Ensure as per registered dietitian recommendation. Bowel regimen instituted. Supportive care provided. Patient clinically stabilized and was ready for transfer home with home health services. FINAL DIAGNOSES: Fluid overload with elevated pro BNP Seizure disorder Severe pulmonary hypertension Neurofibromatosis Dysphagia DISCHARGE MEDICATIONS: See Medication Reconciliation list. DISCHARGE INSTRUCTIONS: Patient was discharged home with home health services. Follow up with primary care provider in one week. Outpatient follow up with neurologist recommended. I have been assigned to dictate discharge summary for this account. I was not involved in the patient's management. Christy Hernandez NP Jun 08, 2018 11:00
--- NOTE | 2018-06-08 16:11 | Diagnostic Imaging Report ---
Indication: Dysphasia Procedure and findings: Real-time fluoroscopic imaging performed in a lateral projection in conjunction with the speech pathologist evaluation. Variable consistencies of barium given per mouth. Findings: Significant abnormalities of both oral and pharyngeal phases of swallowing are demonstrated. Total fluoroscopic time 305 seconds. There is no definite aspiration. Trace Laryngeal penetration noted with thin liquids and nectar. Abnormal video swallow. Please refer to speech pathology evaluation for more information.
== END 2018-06-07 15:18 | disposition home health service (06) | DRG 641 ==
LOC: EDBD 12:31 → EMR 13:00 → 4E 14:48 → EDBEDREQ 15:06 → 2E 16:19 → 4E 06-06 22:00
DX: E87.70 Fluid overload, unspecified (principal); G40.909 Epilepsy, unspecified, not intractable, without status epilepticus; Z88.0 Allergy status to penicillin; Z91.013 Allergy to seafood; I27.20 Pulmonary hypertension, unspecified; Q85.00 Neurofibromatosis, unspecified; H91.90 Unspecified hearing loss, unspecified ear; R13.10 Dysphagia, unspecified; Z23 Encounter for immunization
CPT/HCPCS: 36415; 70450; 71045; 74230; 80048; 80053; 80156; 82248; 82962; 83880; 85025; 87081; 90686; 93005; 93970; 96374; 99285

== ENCOUNTER 2019-03-23 10:39 | Emergency (ER) | payer MEDICARE, MEDICAID ==
[~2019-03-23] VITALS: Ht 165.1 cm; Wt 53.5 kg
[2019-03-23] VITALS (7 sets, daily range): BP systolic 95–118; BP diastolic 53–87
--- NOTE | 2019-03-23 11:17 | NUR ---
ED Nurse Note: Pt came in with her handling tech due to dizziness and left hip pain after she fell last thursday03/19/19. Per handling tech, pt was doing her exercise with a walker and is generally unsteady with her gait. The handling tech at that time was unable to catch the pt and she fell and now c/o left hip pain and being dizzy. Uncertain if she hit her head. Pt takes Eliquis 5mg. Pt is AAO x4, came in via wheelchair with unlabored breathing. No bruising or obvious deformity on her left hip. Dr Moore at the bed side.
--- NOTE | 2019-03-23 11:48 | NUR ---
ED Nurse Note: Called radiology to ff up with xray.
--- NOTE | 2019-03-23 12:41 | Emergency Room Report ---
History of Present Illness General Chief Complaint: Dizziness Source: Patient, Caregiver (Luis Moore MD) Present Illness HPI 48-year-old female presents ED for evaluation. Presenting with dizziness and left hip pain status post fall a few days ago. History of fibromatosis. On anticoagulation. Normally walks with walker and assistance. Patient did have mechanical fall. Unclear if she hit her head. Is complaining of dizziness since the fall and some left hip pain. Dull, 5 out of 10, nonradiating. Is still able to walk with walker but with pain. Denies any other injuries. No other aggravating relieving factors. Denies any other associated symptoms (Luis Moore MD) Allergies: Coded Allergies: PENICILLINS (Verified Allergy, Severe, 08/07/12) FISH CONTAINING PRODUCTS (Verified Allergy, Unknown, 06/02/18) Uncoded Allergies: seafood (Allergy, Unknown, 06/02/18) Patient History Past Medical History: seizures, other - neurofibromatosis Past Surgical History: none Pertinent Family History: none Social History: Denies: smoking, alcohol use, drug use Last Menstrual Period: 07/2018 Now: No Immunizations: UTD Reviewed Nursing Documentation: PMH: Agreed; PSxH: Agreed (Luis Moore MD) Nursing Documentation-PMH Past Medical History: No History, Except For Hx Cardiac Problems: No Hx Hypertension: No Hx Pacemaker: No Hx Asthma: No Hx COPD: No Hx Diabetes: No Hx Cancer: No Hx Gastrointestinal Problems: No Hx Dialysis: No Hx Neurological Problems: Yes Hx Cerebrovascular Accident: No Hx Seizures: Yes Hx Vertigo: Yes Hx Dizziness: Yes Hx Neurologic Surgery: Yes - 1994 TUMOR REMOVAL (Luis Moore MD) Review of Systems All Other Systems: negative except mentioned in HPI (Luis Moore MD) Physical Exam Vital Signs Date Time Temp Pulse Resp B/P (MAP) Pulse Ox O2 Delivery O2 Flow Rate FiO2 03/23/19 11:07 98.1 118 16 100/64 (76) 97 Room Air Sp02 EP Interpretation: reviewed, normal General Appearance: no apparent distress, alert, GCS 15, non-toxic Head: normocephalic Eyes: bilateral eye normal inspection, bilateral eye PERRL ENT: normal ENT inspection Neck: full range of motion, no bony tend, supple/symm/no masses Respiratory: normal inspection Cardiovascular #1: normal inspection Gastrointestinal: normal inspection Rectal: deferred Genitourinary: no CVA tenderness Musculoskeletal: back normal, tender - L hip Neurologic: alert, oriented x3, responsive, motor strength/tone normal, sensory intact, speech normal Psychiatric: other - cognitive delay Skin: no rash Lymphatic: normal inspection (Luis Moore MD) Medical Decision Making Diagnostic Impression: Primary Impression: Weakness Laboratory Tests Test 03/23/19 14:18 03/23/19 14:45 White Blood Count 3.7 K/UL (4.8-10.8) L Red Blood Count 4.24 M/UL (4.20-5.40) Hemoglobin 13.2 G/DL (12.0-16.0) Hematocrit 40.1 % (37.0-47.0) Mean Corpuscular Volume 95 FL (80-99) Mean Corpuscular Hemoglobin 31.1 PG (27.0-31.0) H Mean Corpuscular Hemoglobin Concent 32.8 G/DL (32.0-36.0) Red Cell Distribution Width 12.6 % (11.6-14.8) Platelet Count 139 K/UL (150-450) L Mean Platelet Volume 7.7 FL (6.5-10.1) Neutrophils (%) (Auto) 48.7 % (45.0-75.0) Lymphocytes (%) (Auto) 37.3 % (20.0-45.0) Monocytes (%) (Auto) 11.2 % (1.0-10.0) H Eosinophils (%) (Auto) 1.3 % (0.0-3.0) Basophils (%) (Auto) 1.4 % (0.0-2.0) Sodium Level 141 MMOL/L (136-145) Potassium Level 4.1 MMOL/L (3.5-5.1) Chloride Level 101 MMOL/L (98-107) Carbon Dioxide Level 35 MMOL/L (21-32) H Anion Gap 5 mmol/L (5-15) Blood Urea Nitrogen 13 mg/dL (7-18) Creatinine 0.5 MG/DL (0.55-1.30) L Estimate Glomerular Filtration Rate > 60 mL/min (>60) Glucose Level 90 MG/DL (74-106) Calcium Level 9.5 MG/DL (8.5-10.1) Total Bilirubin 0.5 MG/DL (0.2-1.0) Aspartate Amino Transferase (AST) 24 U/L (15-37) Alanine Aminotransferase (ALT) 29 U/L (12-78) Alkaline Phosphatase 138 U/L (46-116) H Total Creatine Kinase 92 U/L (26-308) Creatine Kinase MB 2.5 NG/ML (0.0-3.6) Creatine Kinase MB Relative Index 2.7 Troponin I 0.057 ng/mL (0.000-0.056) Pro-B-Type Natriuretic Peptide 1038 pg/mL (0-125) H Total Protein 7.7 G/DL (6.4-8.2) Albumin 3.6 G/DL (3.4-5.0) Globulin 4.1 g/dL Albumin/Globulin Ratio 0.9 (1.0-2.7) L (Ryley Becerra MD) EKG Diagnostic Results Rate: normal Rhythm: NSR ST Segments: other - twave inversions in lateral leads ASA given to the pt in ED: No (Luis Moore MD) Rhythm Strip Diag. Results EP Interpretation: yes Rhythm: NSR, no PVC's, no ectopy (Luis Moore MD) Last Vital Signs Date Time Temp Pulse Resp B/P (MAP) Pulse Ox O2 Delivery O2 Flow Rate FiO2 03/23/19 11:23 98.1 90 15 95/60 95 Room Air (Luis Moore MD) Reevaluation Time: 16:28 Reevaluation Impression Assumed care of the patient from Dr. Moore approximately 1430 pending labs. Briefly this is a 48-year-old female who had a fall several days ago showing some possible vasogenic edema on head CT. Labs were ordered in anticipation of hospital admission. Call is out to neurology but have not yet heard from them. Labs have now returned showing no leukocytosis, normal hemoglobin, normal electrolytes, elevated troponin 0 0.057 however patient has had previously higher hemoglobins. Peptide is slightly elevated at 1000. The patient's EKG shows sinus rhythm, normal axis, inverted T waves in the precordial and inferior leads but overall similar morphology from previous EKG on 06/02/2018 and the patient is chest pain-free. Awaiting neurology input and hospital admission versus transfer. 1750: Patient has been accepted for transfer to [facility]. She is stable and appropriate for transfer. Awaiting transportation at this time. (Ryley Becerra MD) Disposition: XFER SHT-TRM HOSP Condition: Stable Referrals: NON PHYSICIAN (PCP) Luis Moore MD Mar 23, 2019 12:41 Ryley Becerra MD Mar 23, 2019 16:32
--- NOTE | 2019-03-23 13:39 | Diagnostic Imaging Report ---
Indications: Head trauma Technique: Spiral acquisitions obtained through the brain. Angled axial and coronal 5 x 5 mm slices were reconstructed. Total dose length product 1000 mGycm. CTDI vol(s) 49 mGy. Dose reduction achieved using automated exposure control Comparison: 15/11/2017 Findings: Again demonstrated are innumerable hyperattenuating extra-axial masses. Again demonstrated is are too right convexity craniotomy flaps.. Again demonstrated is vasogenic edema within the right frontal and parietal deep white matter. This is equivocally slightly more extensive than on the prior exam There is attenuation of the sulci and ventricles which appears slightly increased from the prior exam. There is approximately 4 mm of right to left midline shift. This may be slightly increased from the previous study. There is again demonstrated vasogenic edema in the left cerebellar hemisphere. This appears to surround a 2 cm intra-axial mass. This is better visualized currently than on the prior exam there is also demonstrated on multiple prior studies dating back to 2013. There is leftward shift of the fourth ventricle as well as attenuation of the fourth ventricle. This appears similar to the previous exam. No definite acute intracranial hemorrhage. The remainder of the salas-white differentiation appears preserved. No acute calvarial fracture demonstrated. There are bilateral ocular implants again demonstrated. Visualized sinuses are clear. The mastoids are clear. Impression: No definite acute intracranial bleed or evidence of acute calvarial trauma Suggestion of slightly increased right frontoparietal vasogenic edema and subtle slightly increased mass effect, with slightly increased midline shift and slightly increased attenuation of the sulci. Left cerebellar hemispheric vasogenic edema with resultant mass effect, probably from an intra-axial mass. However, this appears to be stable from prior exams dating back to 2013 Innumerable meningiomas again demonstrated, presumably related to stated clinical history of neurofibromatosis. The CT scanner at [facility] is accredited by the [employer] and the scans are performed using protocols designed to limit radiation exposure to as low as reasonably achievable to attain images of sufficient resolution adequate for diagnostic evaluation.
[2019-03-23 14:34] LABS: BASOPHILS % (AUTO) 1.4 % (0.0-2.0); EOSINOPHILS % (AUTO) 1.3 % (0.0-3.0); HEMATOCRIT 40.1 % (37.0-47.0); HEMOGLOBIN 13.2 G/DL (12.0-16.0); LYMPHOCYTES % (AUTO) 37.3 % (20.0-45.0); MEAN CORPUSCULAR VOLUME 95 FL (80-99); MONOCYTES % (AUTO) 11.2 % (1.0-10.0); NEUTROPHILS % (AUTO) 48.7 % (45.0-75.0); PLATELET COUNT 139 K/UL (150-450); RED BLOOD COUNT 4.24 M/UL (4.20-5.40); RED CELL DISTRIBUTION WIDTH 12.6 % (11.6-14.8); WHITE BLOOD COUNT 3.7 K/UL (4.8-10.8)
[2019-03-23 15:24] LABS: ANION GAP 5 mmol/L (5-15); BLOOD UREA NITROGEN 13 mg/dL (7-18); CALCIUM 9.5 MG/DL (8.5-10.1); CARBON DIOXIDE 35 MMOL/L (21-32); CHLORIDE 101 MMOL/L (98-107); CREATININE 0.5 MG/DL (0.55-1.30); POTASSIUM 4.1 MMOL/L (3.5-5.1); SODIUM 141 MMOL/L (136-145)
[2019-03-23 15:39] LABS: ALANINE AMINOTRANSFERASE 29 U/L (12-78); ALBUMIN 3.6 G/DL (3.4-5.0); ALBUMIN/GLOBULIN RATIO 0.9 (1.0-2.7); ALKALINE PHOSPHATASE 138 U/L (46-116); ASPARTATE AMINO TRANSFERASE 24 U/L (15-37); BILIRUBIN,TOTAL 0.5 MG/DL (0.2-1.0); CKMB 2.5 NG/ML (0.0-3.6); CREATINE KINASE 92 U/L (26-308)
--- NOTE | 2019-03-23 17:28 | Diagnostic Imaging Report ---
Indication: Shortness of breath Technique: One view of the chest Comparison: 06/06/2018 Findings: Left hemidiaphragm is elevated. Lungs and pleural spaces are clear. Diffusely demonstrated left basilar parenchymal opacities are no longer evident. Impression: No acute process
--- NOTE | 2019-03-23 17:45 | Diagnostic Imaging Report ---
Indication: Reason For Exam: PAIN Technique: 2 views of the left hip, one view of the pelvis Comparison: none Findings: Prominent Serial sclerosis and suggestion of a slight buckle at the lateral head neck junction appears similar to a prior CT scan of 2018. No definite acute fracture. No dislocation. There is evidence of fecal incontinence. The joint spaces are preserved. The soft tissues are unremarkable except for numerous soft tissue calcifications which could represent phleboliths or could be related to history of neurofibromatosis. Impression: No acute process
--- NOTE | 2019-03-23 17:47 | Diagnostic Imaging Report ---
Indication: Pain, status post recent fall Technique: 3 views of the knee Comparison: None Findings: Bones are osteoporotic. No acute fractures. No dislocations. Joint spaces are preserved. There are numerous soft tissue calcifications Impression: No acute process
[2019-03-23] MEDS ORDERED: FUROSEMIDE20 M1 ORAL (17:49)
[2019-03-23] MEDS ORDERED: SELEXIPAG PO (17:49)
[2019-03-23] MEDS ORDERED: SILDENAFIL20 MG ORAL (17:49)
--- NOTE | 2019-03-23 18:40 | NUR ---
ED Nurse Note: Tried to call for report to [facility] and no assigned RN yet for this pt. Will try to call again later. [facility] ER charge nurse notified.
--- NOTE | 2019-03-23 19:02 | NUR ---
ED Nurse Note: Report given to Charity SAGASTUME of [facility].
--- NOTE | 2019-03-23 19:08 | NUR ---
HAND-OFF: Report given to Deirdre SAGASTUME.
--- NOTE | 2019-03-23 19:10 | NUR ---
ED Nurse Note: report received from MITESH Lynne and assumed care, pt vss, resp even and unlabored on RA, iv intact and patent, will cont monitor. sinus rhythm on campus monitor. pt resting at this time, safety precautions in place, pt advised to notify staff if needed assist.
[2019-03-23] MEDS ORDERED: carBAMazepine 200mg tab ORAL ONE (21:45)
--- NOTE | 2019-03-23 23:05 | NUR ---
ED Nurse Note: TRANSPORT AT THE BEDSIDE, PT VSS, RESP EVEN AND UNLABORED ON RA, PT SINUS RHYTHM ON SENIOR MARKETING COORDINATOR, IV INTACT AND PATENT, ALL BELONGINGS ENDORSED TO RECEIVING EMS STAFF, CARE ENDORSED TO EMS.
== END 2019-03-23 23:05 | disposition short-term general hospital (02) ==
LOC: EMR 11:35 → EDBEDREQ 14:40 → EMR 23:05
DX: R53.1 Weakness (principal); R42 Dizziness and giddiness; Z88.0 Allergy status to penicillin; Z91.013 Allergy to seafood; R79.82 Elevated C-reactive protein (CRP); Z91.81 History of falling; R06.02 Shortness of breath; M25.552 Pain in left hip; M25.562 Pain in left knee; M72.9 Fibroblastic disorder, unspecified; Z79.01 Long term (current) use of anticoagulants
CPT/HCPCS: 36415; 70450; 71045; 73502; 80053; 82550; 82553; 83880; 84484; 85025; 93005; 99284

== ENCOUNTER 2019-12-05 15:57 | Emergency (ER) | payer MEDICARE, MEDICAID ==
[~2019-12-05] VITALS: Ht 167.6 cm; Wt 54.4 kg
[~2019-12-05 15:57] MED LIST changes: +FUROSEMIDE20 M1 ORAL; +SELEXIPAG PO; +SILDENAFIL20 MG ORAL
--- NOTE | 2019-12-05 16:57 | Emergency Room Report ---
History of Present Illness General Chief Complaint: Generalized Weakness Source: Medical Record Present Illness HPI Patient is an unfortunate case with significant history of neurofibromatosis patient is deaf Chronically debilitated Press Secretary/family reported the patient appeared weaker than usual I am attempting contact with family caregiver/ There was no reports of vomiting or diarrhea there has been decreased oral intake unknown regarding fever unknown regarding Cough Allergies: Coded Allergies: PENICILLINS (Verified Allergy, Severe, 08/07/12) FISH CONTAINING PRODUCTS (Verified Allergy, Unknown, 06/02/18) Uncoded Allergies: seafood (Allergy, Unknown, 06/02/18) COVID-19 Screening Contact w/high risk pt: No Recent Travel to affected area: No Experienced COVID-19 symptoms?: No COVID-19 Testing performed SIGNALS INTELLIGENCE SUPERINTENDENT: No Patient History Limited by: medical condition Past Medical History: see triage record Now: No Reviewed Nursing Documentation: PMH: Agreed; PSxH: Agreed Nursing Documentation-PMH Hx Cardiac Problems: No Hx Hypertension: Yes Hx Pacemaker: No Hx Asthma: No Hx COPD: No Hx Diabetes: No Hx Cancer: No Hx Gastrointestinal Problems: No Hx Dialysis: No Hx Neurological Problems: Yes Hx Cerebrovascular Accident: No Hx Seizures: Yes Hx Vertigo: Yes Hx Dizziness: Yes Hx Neurologic Surgery: Yes - 1989, 1994 TUMOR REMOVAL Review of Systems All Other Systems: limited - Other than the ones mentioned in the history of present illness all others are reviewed however they do stay limited due to the patient's mental status Physical Exam Vital Signs Date Time Temp Pulse Resp B/P (MAP) Pulse Ox O2 Delivery O2 Flow Rate FiO2 12/05/19 15:53 97.9 100 18 133/94 (107) 95 Room Air Sp02 EP Interpretation: reviewed, normal General Appearance: other - Proptosis with evidence of secondary findings for neurofibromatosis Head: other Eyes: bilateral eye other - Bilateral proptosis ENT: dry mucus membranes Neck: supple Respiratory: lungs clear, no respiratory distress, no retraction Cardiovascular #1: regular rate, rhythm Gastrointestinal: non tender, soft Musculoskeletal: other - Patient chronically debilitated does not move lower extremity has a right hand raised fingers flexed Neurologic: other - Patient looks up and is interactive is not verbal and also deaf Skin: no rash Lymphatic: no adenopathy Medical Decision Making Diagnostic Impression: Primary Impression: Dyspnea Additional Impressions: Pulmonary hypertension Fever Elevated troponin ER Course Multiple differentials and consideration including but not limited to febrile illness Such as pneumonia, covid-19, UTI Patient also initially has been reported to be weak and worsening symptoms of the patient's neurofibromatosis considered Patient initial CT showed worsening white matter disease with edema And MRI was recommended This was ordered and the patient's family at this time is refusing further intervention She reports that the patient has refused surgical intervention in the past and does not want to have anything further done for this Patient also was found to be somewhat tachycardic here and repeat temperature showed elevated temperature raising question of possible aspiration or other infectious process Patient initiated on IV antibiotics antibiotics and requires admission Family at this time refusing admission They report that the patient wants to go home And requesting to be dispositioned understanding the possibility of poor outcome They report that this is essentially for the patient's wellbeing as she has difficulty communicating with people and does worse in the hospital Labs Test 12/05/19 17:30 White Blood Count 6.7 K/UL (4.8-10.8) Red Blood Count 4.41 M/UL (4.20-5.40) Hemoglobin 13.4 G/DL (12.0-16.0) Hematocrit 44.7 % (37.0-47.0) Mean Corpuscular Volume 101 FL (80-99) Mean Corpuscular Hemoglobin 30.4 PG (27.0-31.0) Mean Corpuscular Hemoglobin Concent 30.0 G/DL (32.0-36.0) Red Cell Distribution Width 13.8 % (11.6-14.8) Platelet Count 135 K/UL (150-450) Mean Platelet Volume 11.1 FL (6.5-10.1) Neutrophils (%) (Auto) 79.0 % (45.0-75.0) Lymphocytes (%) (Auto) 12.5 % (20.0-45.0) Monocytes (%) (Auto) 6.6 % (1.0-10.0) Eosinophils (%) (Auto) 0.2 % (0.0-3.0) Basophils (%) (Auto) 1.7 % (0.0-2.0) Urine Color Yellow Urine Appearance Clear Urine pH 8 (4.5-8.0) Urine Specific White 1.015 (1.005-1.035) Urine Protein 3+ (NEGATIVE) Urine Glucose (UA) Negative (NEGATIVE) Urine Ketones 1+ (NEGATIVE) Urine Blood Negative (NEGATIVE) Urine Nitrite Negative (NEGATIVE) Urine Bilirubin Negative (NEGATIVE) Urine Urobilinogen 1 MG/DL (0.0-1.0) Urine Leukocyte Esterase 1+ (NEGATIVE) Urine RBC 2-4 /HPF (0 - 2) Urine WBC 0-2 /HPF (0 - 2) Urine Squamous Epithelial Cells Many /LPF (NONE/OCC) Urine Bacteria Few /HPF (NONE) Sodium Level 144 MMOL/L (136-145) Potassium Level 4.3 MMOL/L (3.5-5.1) Chloride Level 104 MMOL/L (98-107) Carbon Dioxide Level 30 MMOL/L (21-32) Anion Gap 10 mmol/L (5-15) Blood Urea Nitrogen 16 mg/dL (7-18) Creatinine 0.5 MG/DL (0.55-1.30) Estimat Glomerular Filtration Rate > 60 mL/min (>60) Glucose Level 106 MG/DL (74-106) Lactic Acid Level 2.00 mmol/L (0.4-2.0) Calcium Level 8.8 MG/DL (8.5-10.1) Total Bilirubin 0.3 MG/DL (0.2-1.0) Aspartate Amino Transf (AST/SGOT) 28 U/L (15-37) Alanine Aminotransferase (ALT/SGPT) 36 U/L (12-78) Alkaline Phosphatase 133 U/L (46-116) Total Creatine Kinase 160 U/L (26-308) Creatine Kinase MB 2.6 NG/ML (0.0-3.6) Creatine Kinase MB Relative Index 1.6 Troponin I 0.072 ng/mL (0.000-0.056) Pro-B-Type Natriuretic Peptide 1315 pg/mL (0-125) Total Protein 7.3 G/DL (6.4-8.2) Albumin 3.5 G/DL (3.4-5.0) Globulin 3.8 g/dL Albumin/Globulin Ratio 0.9 (1.0-2.7) Lipase 77 U/L (73-393) Carbamazepine (Tegretol) Level 12.6 ug/mL (4.0-12.0) Rhythm Strip Diag. Results EP Interpretation: yes Rate: 110 Rhythm: no PVC's, no ectopy, other - Sinus tach Chest X-Ray Diagnostic Results Chest X-Ray Diagnostic Results : Chest X-Ray Ordered: Yes # of Views/Limited/Complete: 1 View Indication: Shortness of Breath EP Interpretation: Yes Interpretation: no consolidation, no effusion, no pneumothorax Impression: No acute disease - Similar raised left hemidiaphragm from previous Electronically Signed by: Alex Goins DO CT/MRI/US Diagnostic Results CT/MRI/US Diagnostic Results : Impression CT headIMPRESSION: 1. Innumerable meningiomata are noted compatible with patient's history of neurofibromatosis. 2. There is extensive white matter edema of the right cerebral hemisphere, having increased in extent since the earlier study. 3. There is mass-effect upon the right lateral ventricle. 4. There is minimal right to left midline shift, similar to previous study. 5. Magnetic resonance imaging of the brain with gadolinium administration is highly advised for further assessment, particularly given the patient's history. Last Vital Signs Date Time Temp Pulse Resp B/P (MAP) Pulse Ox O2 Delivery O2 Flow Rate FiO2 12/05/19 15:53 97.9 100 18 133/94 (107) 95 Room Air Status: improved Disposition: AGAINST MEDICAL ADVICE Condition: Serious Alex Goins DO Dec 05, 2019 16:57
--- NOTE | 2019-12-05 17:32 | Diagnostic Imaging Report ---
EXAM: CT Head Without Intravenous Contrast CLINICAL HISTORY: Altered mental status. TECHNIQUE: Axial computed tomography images of the head/brain without intravenous contrast. CTDI is 53.4 mGy and DLP is 965.4 mGy-cm. One or more of the following dose reduction techniques were used: automated exposure control, adjustment of the mA and/or kV according to patient size, use of iterative reconstruction technique. COMPARISON: 03/23/2019. FINDINGS: Brain: Numerous bilateral meningiomas are again noted, compatible with patient's history of neurofibromatosis. There is extensive diffuse are white matter edema within the right cerebral hemisphere, having increased in extent since the earlier study of 03/23/2019. No hemorrhage. Midline shift: There is right to left midline shift, similar to the previous study. Ventricles: There is mass-effect upon the right lateral ventricle. Bones/joints: Post craniotomy changes are again noted, similar to the previous study. No acute fracture. Soft tissues: Unremarkable. Sinuses: Visualized sinuses are unremarkable. Mastoid air cells: Mastoid air cells are well pneumatized. IMPRESSION: 1. Innumerable meningiomata are noted compatible with patient's history of neurofibromatosis. 2. There is extensive white matter edema of the right cerebral hemisphere, having increased in extent since the earlier study. 3. There is mass-effect upon the right lateral ventricle. 4. There is minimal right to left midline shift, similar to previous study. 5. Magnetic resonance imaging of the brain with gadolinium administration is highly advised for further assessment, particularly given the patient's history. <MYCVCSECTION> Communications: 12/05/19 17:33 Call Doctor Regarding Above results, called Alex Goins MD on 12/04 17:33 (-07:00)
[2019-12-05 17:50] VITALS: BP 133/94
[2019-12-05 17:58] LABS: BASOPHILS % (AUTO) 1.7 % (0.0-2.0); EOSINOPHILS % (AUTO) 0.2 % (0.0-3.0); HEMATOCRIT 44.7 % (37.0-47.0); HEMOGLOBIN 13.4 G/DL (12.0-16.0); LYMPHOCYTES % (AUTO) 12.5 % (20.0-45.0); MEAN CORPUSCULAR VOLUME 101 FL (80-99); MONOCYTES % (AUTO) 6.6 % (1.0-10.0); PLATELET COUNT 135 K/UL (150-450); RED BLOOD COUNT 4.41 M/UL (4.20-5.40); RED CELL DISTRIBUTION WIDTH 13.8 % (11.6-14.8); WHITE BLOOD COUNT 6.7 K/UL (4.8-10.8)
[2019-12-05 17:59] LABS: APPEARANCE,URINE CLEAR; BILIRUBIN, URINE NEGATIVE (NEGATIVE); GLUCOSE, URINE (UA) NEGATIVE (NEGATIVE); KETONES,URINE 1+ (NEGATIVE); LEUKOCYTE ESTERASE ,URINE 1+ (NEGATIVE); NITRITE,URINE NEGATIVE (NEGATIVE); PH,URINE 8 (4.5-8.0); PROTEIN,URINE 3+ (NEGATIVE); UROBILINOGEN,URINE 1 MG/DL (0.0-1.0)
[2019-12-05 18:02] VITALS: BP 126/86
[2019-12-05 18:02] LABS: COLOR,URINE YELLOW
[2019-12-05] MEDS ORDERED: OPSUMIT10 MG PO (18:14)
[2019-12-05 18:15] LABS: ANION GAP 10 mmol/L (5-15); BLOOD UREA NITROGEN 16 mg/dL (7-18); CALCIUM 8.8 MG/DL (8.5-10.1); CARBON DIOXIDE 30 MMOL/L (21-32); CHLORIDE 104 MMOL/L (98-107); CREATININE 0.5 MG/DL (0.55-1.30); POTASSIUM 4.3 MMOL/L (3.5-5.1); SODIUM 144 MMOL/L (136-145)
[2019-12-05 18:25] LABS: ALANINE AMINOTRANSFERASE 36 U/L (12-78); ALBUMIN 3.5 G/DL (3.4-5.0); ALBUMIN/GLOBULIN RATIO 0.9 (1.0-2.7); ALKALINE PHOSPHATASE 133 U/L (46-116); ASPARTATE AMINO TRANSFERASE 28 U/L (15-37); BILIRUBIN,TOTAL 0.3 MG/DL (0.2-1.0); CKMB 2.6 NG/ML (0.0-3.6); CREATINE KINASE 160 U/L (26-308)
[2019-12-05] MEDS ORDERED: Acetaminophen 650mg/20.3ml NG ONE (18:30)
[2019-12-05] MEDS ORDERED: Omnipaque 350 100ml vial INJ PRN (18:45)
[2019-12-05 19:00] VITALS: BP 126/86
--- NOTE | 2019-12-05 21:58 | Diagnostic Imaging Report ---
Indication: Chest pain Technique: One view of the chest Comparison: 03/23/2019 Findings: There is some infiltrate in the medial left lung base. The heart is borderline enlarged. A few small bands of atelectasis are seen at the right lung base. Impression: Left basilar infiltrate Right basilar or subsegmental atelectasis
== END 2019-12-05 19:10 | disposition left against medical advice (07) ==
LOC: EDBD 15:57 → EDBEDREQ 16:52 → EMR 17:22 → UNDOADMIN 17:27 → 4E 17:27 → EDBEDREQ 18:09
DX: R06.00 Dyspnea, unspecified (principal); I27.20 Pulmonary hypertension, unspecified; R50.9 Fever, unspecified; R79.89 Other specified abnormal findings of blood chemistry; Z88.0 Allergy status to penicillin; Z91.013 Allergy to seafood; H91.3 Deaf nonspeaking, not elsewhere classified; H05.20 Unspecified exophthalmos; R90.82 White matter disease, unspecified; R60.0 Localized edema; R00.0 Tachycardia, unspecified
CPT/HCPCS: 36415; 70450; 71045; 80053; 80156; 81003; 82550; 82553; 83605; 83690; 83880; 84484; 85025; 87040; 93005; 96361; 96365; 99284; J1956; J7030

== ENCOUNTER 2020-02-13 20:47 | Inpatient (IN) | payer MEDICARE, MEDICAID ==
[~2020-02-13] VITALS: Ht 165.1 cm; Wt 70.0 kg
[~2020-02-13 20:47] MED LIST changes: +OPSUMIT10 MG PO
[2020-02-13 21:00] VITALS: BP 131/71
[2020-02-13] MEDS ORDERED: Cefepime HCl 2 GM in D5W 55 ML IVPB ONE (21:00)
[2020-02-13] MEDS ORDERED: Vancomycin 1 GM in NS 275 ML IV ONE (21:00)
[2020-02-13] MEDS ORDERED: Azithromycin 500 MG in D5W 275 ML IVPB ONE (21:00)
[2020-02-13] MEDS ORDERED: Acetaminophen 650 MG SUPP RECTAL ONE (21:00)
[2020-02-13 21:26] LABS: BASOPHILS % (AUTO) 0.8 % (0.0-2.0); EOSINOPHILS % (AUTO) 0.2 % (0.0-3.0); HEMATOCRIT 40.2 % (37.0-47.0); HEMOGLOBIN 12.8 G/DL (12.0-16.0); LYMPHOCYTES % (AUTO) 20.2 % (20.0-45.0); MEAN CORPUSCULAR VOLUME 99 FL (80-99); MONOCYTES % (AUTO) 5.2 % (1.0-10.0); NEUTROPHILS % (AUTO) 73.7 % (45.0-75.0); PLATELET COUNT 157 K/UL (150-450); RED BLOOD COUNT 4.06 M/UL (4.20-5.40); RED CELL DISTRIBUTION WIDTH 13.2 % (11.6-14.8)
[2020-02-13 21:32] LABS: INR 1.2 (0.9-1.1)
[2020-02-13 21:37] LABS: ANION GAP 10 mmol/L (5-15); BLOOD UREA NITROGEN 18 mg/dL (7-18); CALCIUM 8.4 MG/DL (8.5-10.1); CARBON DIOXIDE 29 MMOL/L (21-32); CHLORIDE 107 MMOL/L (98-107); CREATININE 0.6 MG/DL (0.55-1.30); POTASSIUM 4.4 MMOL/L (3.5-5.1); SODIUM 146 MMOL/L (136-145)
[2020-02-13 21:39] LABS: APPEARANCE,URINE CLOUDY; BILIRUBIN, URINE NEGATIVE (NEGATIVE); COLOR,URINE YELLOW; GLUCOSE, URINE (UA) NEGATIVE (NEGATIVE); KETONES,URINE NEGATIVE (NEGATIVE); NITRITE,URINE POSITIVE (NEGATIVE); PH,URINE 6.5 (4.5-8.0); PROTEIN,URINE 3+ (NEGATIVE)
[2020-02-13 21:40] VITALS: BP 97/50
[2020-02-13 21:40] LABS: LEUKOCYTE ESTERASE ,URINE 1+ (NEGATIVE); UROBILINOGEN,URINE NORMAL MG/DL (0.0-1.0)
[2020-02-13 21:47] LABS: ALANINE AMINOTRANSFERASE 43 U/L (12-78); ALBUMIN 3.4 G/DL (3.4-5.0); ALBUMIN/GLOBULIN RATIO 0.8 (1.0-2.7); ALKALINE PHOSPHATASE 141 U/L (46-116); ASPARTATE AMINO TRANSFERASE 48 U/L (15-37); BILIRUBIN,TOTAL 0.4 MG/DL (0.2-1.0); CREATINE KINASE 268 U/L (26-308)
[2020-02-13] MEDS ORDERED: Midazolam for drip 50 MG in NS 90 ML IV STA (21:57)
[2020-02-13 22:00] VITALS: BP 95/50
[2020-02-13] MEDS ORDERED: Midazolam 2mg/2ml Inj IVP ONE (22:00)
[2020-02-13] MEDS ORDERED: Midazolam for drip 50 MG in NS 90 ML IV SCH (22:00)
--- NOTE | 2020-02-13 22:02 | Emergency Room Report ---
History of Present Illness General Chief Complaint: Altered Level of Consciousness Source: Family Member, Medical Record, EMS Present Illness HPI Patient from home with fever and ALOC. Unable to give history. Paramedics started IJ and gave 250 fluid bolus. No other symptoms reported. Allegedly " on the couch drooling all day". Most recent evaluation 11/2019 for weakness with fever. Family at that time refused admission. 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 Patient last admitted May 2018. D/C dx: Fluid overload with elevated pro BNP Seizure disorder Severe pulmonary hypertension Neurofibromatosis Dysphagia Allergies: Coded Allergies: PENICILLINS (Verified Allergy, Severe, 08/07/12) FISH CONTAINING PRODUCTS (Verified Allergy, Unknown, 06/02/18) Uncoded Allergies: seafood (Allergy, Unknown, 06/02/18) COVID-19 Screening Contact w/high risk pt: No Recent Travel to affected area: No Experienced COVID-19 symptoms?: Yes COVID-19 Testing performed LATHE HAND: No Patient History Limited by: medical condition Past Medical History: see triage record, old chart reviewed Social History: Denies: smoking, alcohol use, drug use Social History Narrative at home with geophysical laboratory chief Reviewed Nursing Documentation: PMH: Agreed; PSxH: Agreed Nursing Documentation-PMH Hx Cardiac Problems: No Hx Hypertension: No Hx Pacemaker: No Hx Asthma: No Hx COPD: No Hx Diabetes: No Hx Cancer: No Hx Gastrointestinal Problems: No Hx Dialysis: No Hx Cerebrovascular Accident: No Hx Seizures: Yes Hx Vertigo: Yes Hx Dizziness: Yes Hx Neurologic Surgery: Yes - 1989, 1994 TUMOR REMOVAL Review of Systems All Other Systems: limited Physical Exam Vital Signs Date Time Temp Pulse Resp B/P (MAP) Pulse Ox O2 Delivery O2 Flow Rate FiO2 02/13/20 20:37 102.0 135 22 83/42 (56) 97 Room Air 02/13/20 21:39 60 General Appearance: severe distress, other - unresponsive Head: normocephalic, atraumatic Eyes: bilateral eye PERRL, bilateral eye abnormal EOM, bilateral eye other - exopthalmous ENT: dry mucus membranes Neck: supple, no meningismus Respiratory: respiratory distress, crackles, rhonchi Cardiovascular #1: no edema, tachycardia Cardiovascular #2: 2+ radial (R) Gastrointestinal: soft, decreased bowel sounds Musculoskeletal: decreased range of motion, other - some contractures L arm Neurologic: motor weakness, other - unresponsive to pain Psychiatric: other - stupor Skin: no rash, other - scars r arm, hot Procedures Critical Care Time Critical Care Time Total Critical Care Time: 75 min bedside evaluation and treatment excludes procedures (EKG, intubation). Reason for critical care: sepsis, respiratory failure, sedation, obtaining further history, discussion with family, repeat examinations Possible complications: hypotension, hypertension, IA, shock, arrhythmias, metabolic acidosis, end organ damage, respiratory failure. Interventions: intubation, sepsis resuscitation, sedation, treatment of NSTEMI, review of old records, repeat evaluations, evaluation of hypotension Course: Patient presented with ALOC, fever and hypotension. Emergent intubation as respiratory insufficiency. Sepsis resuscitation and initiation of antibiotics. Adjustment of vent orders. Sedation ordered as attempt to pull ET. Further history and discussion of course with family. Repeat eval with hypotension on sedation with adjustment of Versed and bolus. Broaden antibiotics based on CXR and UA results. Treatment of NSTEMI. Consideration for CT, evaluation of h/o pulmonary hypertension. Review of old records. Consultations: nursing staff, EMS, family, RT Performed by: Dr. Batista Tolerated well condition = critical Intubation Intubation : Consent: Emergent Intubation Method: orotracheal Tube Size (cm): 7.0 Medications: Other - none Breath Sounds after Intubation: equal Intubation Complications: no complications Post Intubation Xray: Yes Attempts: One Patient Tolerated: Well Complications: None Medical Decision Making Diagnostic Impression: Primary Impression: Respiratory failure Qualified Codes: J96.01 - Acute respiratory failure with hypoxia Additional Impressions: Severe sepsis UTI (urinary tract infection) Qualified Codes: N39.0 - Urinary tract infection, site not specified NSTEMI (non-ST elevated myocardial infarction) Left hemiparesis Pulmonary hypertension Neurofibromatosis ER Course Patient from home via EMS with fever and hypotension. DDX: sepsis, pneumonia, COVID, UTI, AMI, meningitis amongst others. Unresponsive and respiratory distress. Immediate intubation indicated. Evaluation with EKG, CXR and labs. Fluid/sepsis resuscitation begun immediately with focus on respiratory source. Isolation precautions Placed on agriculture technician. L hemiparesis appears old based on exam. No nuchal regidity though altered. Patient intubated. Initial sats very poor. Copious blood-tinged sputum. With replacement of monitor, better - change FiO2 from 100% to 60%. Patient trying to pull tube with R hand. L paresis (appears old). Restraints and sedation ordered. (Improved mentation noted.) BP low, still appears fluid down. Bolus and also back off on Versed. 2312 During intubation, suspected pneumonia. CXR fairly clear. Urine infected. Added levaquin. 2338 Initial test for COVID negative. However, suspect disease as young for elevated troponin. O2 sats improved. Titrated FIO2 to 45% by ERMD. Initial COVID test negative although concern as + troponin. May need repeat testing. Discussed with Aunt. 2351 States seizure disorder and hemiparesis old. Carbamazepine level ordered. Decision not to CT head as prior h/o neurofibromatosis and clinical improvement. BP better after second bolus and decrease in Versed. Notify PMD of admission. Improved prior to transfer to ICU. Consideration of + troponin: may be result of R heart strain due to pulmonary hypertension in the face of severe sepsis. Consideration of prostaglandins. Extremely complex patient demonstrating clinical improvement, though critical. Laboratory Tests Test 02/13/20 20:46 02/13/20 21:02 02/13/20 23:59 02/14/20 00:46 Arterial Blood pH 7.436 (7.350-7.450) Arterial Blood Partial Pressure CO2 34.9 mmHg (35.0-45.0) L Arterial Blood Partial Pressure O2 70.9 mmHg (75.0-100.0) L Arterial Blood HCO3 23.0 mmol/L (22.0-26.0) Arterial Blood Oxygen Saturation 94.3 % (95-100) L Arterial Blood Base Excess -0.9 (-2-2) Jax Test Positive White Blood Count 10.0 K/UL (4.8-10.8) Red Blood Count 4.06 M/UL (4.20-5.40) L Hemoglobin 12.8 G/DL (12.0-16.0) Hematocrit 40.2 % (37.0-47.0) Mean Corpuscular Volume 99 FL (80-99) Mean Corpuscular Hemoglobin 31.6 PG (27.0-31.0) H Mean Corpuscular Hemoglobin Concent 31.9 G/DL (32.0-36.0) L Red Cell Distribution Width 13.2 % (11.6-14.8) Platelet Count 157 K/UL (150-450) Mean Platelet Volume 10.1 FL (6.5-10.1) Neutrophils (%) (Auto) 73.7 % (45.0-75.0) Lymphocytes (%) (Auto) 20.2 % (20.0-45.0) Monocytes (%) (Auto) 5.2 % (1.0-10.0) Eosinophils (%) (Auto) 0.2 % (0.0-3.0) Basophils (%) (Auto) 0.8 % (0.0-2.0) Prothrombin Time 13.1 SEC (9.30-11.50) H Prothrombin Time INR 1.2 (0.9-1.1) H Activated Partial Thromboplast Time 27 SEC (23-33) Urine Color Yellow Urine Appearance Cloudy Urine pH 6.5 (4.5-8.0) Urine Specific Melber 1.015 (1.005-1.035) Urine Protein 3+ (NEGATIVE) H Urine Glucose (UA) Negative (NEGATIVE) Urine Ketones Negative (NEGATIVE) Urine Blood 1+ (NEGATIVE) H Urine Nitrite Positive (NEGATIVE) H Urine Bilirubin Negative (NEGATIVE) Urine Urobilinogen Normal MG/DL (0.0-1.0) Urine Leukocyte Esterase 1+ (NEGATIVE) H Urine RBC 2-4 /HPF (0 - 2) H Urine WBC 15-20 /HPF (0 - 2) H Urine Squamous Epithelial Cells Moderate /LPF (NONE/OCC) H Urine Amorphous Sediment Moderate /LPF (NONE) H Urine Bacteria Many /HPF (NONE) H Sodium Level 146 MMOL/L (136-145) H Potassium Level 4.4 MMOL/L (3.5-5.1) Chloride Level 107 MMOL/L (98-107) Carbon Dioxide Level 29 MMOL/L (21-32) Anion Gap 10 mmol/L (5-15) Blood Urea Nitrogen 18 mg/dL (7-18) Creatinine 0.6 MG/DL (0.55-1.30) Estimated Glomerular Filtration Rate > 60 mL/min (>60) Glucose Level 168 MG/DL (74-106) H Lactic Acid Level 2.80 mmol/L (0.4-2.0) H 2.70 mmol/L (0.66-2.22) H Calcium Level 8.4 MG/DL (8.5-10.1) L Magnesium Level 1.8 MG/DL (1.8-2.4) Total Bilirubin 0.4 MG/DL (0.2-1.0) Aspartate Amino Transferase (AST) 48 U/L (15-37) H Alanine Aminotransferase (ALT) 43 U/L (12-78) Alkaline Phosphatase 141 U/L (46-116) H Total Creatine Kinase 268 U/L (26-308) Troponin I 0.143 ng/mL (0.000-0.056) Pro-B-Type Natriuretic Peptide 3045 pg/mL (0-125) H Total Protein 7.7 G/DL (6.4-8.2) Albumin 3.4 G/DL (3.4-5.0) Globulin 4.3 g/dL Albumin/Globulin Ratio 0.8 (1.0-2.7) L Lipase 79 U/L (73-393) Carbamazepine (Tegretol) Level 10.5 ug/mL (4.0-12.0) Microbiology Date/Time Source Procedure Growth Status 02/13/20 21:02 Nasopharynx SARS-CoV-2 RdRp Gene Assay - Final Complete EKG Diagnostic Results Rate: tachycardiac Rhythm: NSR ST Segments: no acute changes Rhythm Strip Diag. Results EP Interpretation: yes Rhythm: no PVC's, no ectopy, other Chest X-Ray Diagnostic Results Chest X-Ray Diagnostic Results : Chest X-Ray Ordered: Yes # of Views/Limited/Complete: 1 View Indication: Other EP Interpretation: Yes Interpretation: no effusion, no pneumothorax, other - ET OK Impression: Other Electronically Signed by: Electronic signiture by Marcus Batista MD Last Vital Signs Date Time Temp Pulse Resp B/P (MAP) Pulse Ox O2 Delivery O2 Flow Rate FiO2 02/14/20 01:45 71 18 100 Mechanical Ventilator 45 02/14/20 00:53 101.8 87/51 (63) 02/13/20 21:00 5.0 Status: improved Disposition: ADMITTED INPATIENT Condition: Critical Referrals: NOT CHOSEN ALESSANDRA/,REFERRING (PCP) Marcus Batista MD Feb 13, 2020 22:02
--- NOTE | 2020-02-13 22:08 | Diagnostic Imaging Report ---
ADDENDUM - Added by Yosvany Vega MD on 02/13/2020 10:08 PM (-07:00) Addendum: -ETT 3.5 cm above jean. -Mild prominent cardiomediastinal silhouette likely at least partially due to low lung volumes and portable technique. -Remainder of the report is unchanged. EXAM: XR Chest, 1 View CLINICAL HISTORY: ALOC TECHNIQUE: Frontal view of the chest. COMPARISON: 03/27/2019 FINDINGS: Lungs: Low lung volumes with bronchovascular crowding. No cheri consolidation, pleural effusion, or pneumothorax. Pleural space: See above. Heart: Unremarkable. No cardiomegaly. Mediastinum: Unremarkable. Bones/joints: No acute abnormality IMPRESSION: 1. Low lung volumes with bronchovascular crowding. 2. Otherwise no acute cardiopulmonary disease. 3. If there is further concern, recommend additional imaging such as CT.
[2020-02-13 22:20] VITALS: BP_SYST 95; BP_SYST 97; BP_DIAS 50; BP_DIAS 53
[2020-02-13 23:00] VITALS: BP 90/50
[2020-02-13 23:30] VITALS: BP 93/58
[2020-02-14] VITALS (73 sets, daily range): BP systolic 82–140; BP diastolic 10–82
[2020-02-14] MEDS: Midazolam for drip 50 MG in NS 90 ML IV SCH ×2 (01:23→12:20)
[2020-02-14] MEDS ORDERED: SELEXIPAG PO (01:57)
[2020-02-14] MEDS ORDERED: SILDENAFIL20 MG ORAL (01:57)
[2020-02-14] MEDS ORDERED: OPSUMIT10 MG PO (01:57)
[2020-02-14] MEDS ORDERED: Acetaminophen 650mg/20.3ml NG PRN (03:00)
--- NOTE | 2020-02-14 03:28 | Diagnostic Imaging Report ---
EXAM: XR Abdomen CLINICAL HISTORY: NGT TECHNIQUE: Frontal view of the abdomen/pelvis. COMPARISON: No relevant prior studies available. FINDINGS: The distal tip of the enteric tube and first side port are located well within the stomach. Mildly prominent small bowel loops in left abdomen. Increased fecal burden. IMPRESSION: Distal tip of enteric tube is well within the stomach.
[2020-02-14] MEDS ORDERED: Piperacillin/Tazobactam 3.375 GM in NS 110 ML IVPB SCH ×4 (06:00)
[2020-02-14] MEDS: Vancomycin 750mg/D5W 275ml IVPB SCH ×6 (06:20→23:18)
[2020-02-14] MEDS: Revatio 20mg tab ORAL SCH ×3 (08:46→18:02)
[2020-02-14] MEDS: Eliquis 5mg tablet NGT SCH ×2 (08:46→18:02)
[2020-02-14] MEDS: carBAMazepine 200mg tab NG SCH ×3 (08:48→18:02)
--- NOTE | 2020-02-14 09:15 | History and Physical Report ---
DATE OF ADMISSION: 02/13/2020 CHIEF COMPLAINT: Altered mental status, respiratory failure, and fever. HISTORY OF PRESENT ILLNESS: The patient is a 49-year-old female. She has history of neurofibromatosis, pulmonary hypertension, seizures, and deafness. She was transferred by family members because of altered mental status. According to family members, the patient has been poorly responsive and lethargic for the last several days. She has been unable to take any by mouth. She has been "shaking" was noted to have a fever. There are no reports of any cough, diarrhea. There are no ill contacts. She was transferred by paramedics to the emergency room. On evaluation there, she was intubated because she was poorly responsive. She was febrile to 102. Her chest x-ray was unremarkable. Urine did show 15 to 20 wbc's. The patient is now intubated. She is sedated. PAST MEDICAL HISTORY: As above. PAST SURGICAL HISTORY: None. CURRENT MEDICATIONS: Family is currently bringing her medication list. ALLERGIES: Include fish, penicillin, and seafood. FAMILY HISTORY: Noncontributory. SOCIAL HISTORY: There is no known history of tobacco, ethanol, or drugs. REVIEW OF SYSTEMS: From the patient is unobtainable. PHYSICAL EXAMINATION: VITAL SIGNS: Initial temperature was 104.4, pulse 71, respirations 18, and blood pressure 95/86. GENERAL: The patient is a thin female in no apparent distress. She is orally intubated. HEENT: Head is normocephalic, atraumatic. Sclerae anicteric. Pupils are equal, round, and reactive to light. Oropharynx is orally intubated. NECK: Supple. No adenopathy. HEART: Regular rate and rhythm. LUNGS: Clear anteriorly. ABDOMEN: Soft, nontender, nondistended. EXTREMITIES: Without clubbing, cyanosis, or edema. The patient is sedated. She does have spontaneous movements. There is no seizures noted. No tremors. LABORATORY DATA: White count 10, hemoglobin 12, hematocrit 40. INR was 1.2. Sodium 146, potassium 4.4. Lactic acid level was 2.8. Troponin 0.143. Natriuretic peptide level was 3000. ASSESSMENT: This is a 49-year-old female with history of neurofibromatosis, pulmonary hypertension, seizures, admitted with complaints of respiratory failure and altered mental status secondary to sepsis, etiology of which is unclear, possibilities include pneumonia, meningitis, UTI. PLAN: 1. IV antibiotics. 2. Followup cultures, ID, Pulmonary, Cardiology evaluations, and neurology consultations to be obtained. 3. Family is currently bringing her medication list. 4. She will be sedated. 5. Continue on Ativan for seizures. 6. Continue vent support. 7. DVT and stress ulcer prophylaxis. 8. Plan of care discussed with family members at length. Liborio Dugan M.D. DR: Paul JOB#: [id number] CC:
--- NOTE | 2020-02-14 09:20 | Critical Care Progress Note ---
Assessment/Plan Assessment/Plan respiratory failure pneumonia pulmonary hypertension elevated troponin possible NSTEMI paraplegia hypoxemia PLAN care noted IV antibiotics respiratory care Ventilatory support sedation monitor acid base supportive care suction no wean for today oxygen therapy prognosis guarded medications/laboratory data/nursing notes/ICU care reviewed in detail note reviewed and edited care discussed with RN and RT ICU time spent >40 minutes Critical Care - Subjective Interval Events: care noted admitted to ICU intubated reduced LOC on sedation ROS Limited/Unobtainable: Yes Condition: critical EKG Rhythm: Sinus Rhythm I&O: Intake and Output 02/13/20 02/14/20 19:00 07:00 Intake Total 2723.85 ml Output Total 320 ml Balance 2403.85 ml Intake Oral 0 ml IV Total 2723.85 ml Output Urine Total 320 ml Critical Care - Objective ET-Tube: 7.0 ET Position: 23 Last 24 Hour Vital Signs Date Time Temp Pulse Resp B/P (MAP) Pulse Ox O2 Delivery O2 Flow Rate FiO2 02/14/20 09:00 72 18 100/49 (66) 100 02/14/20 08:38 73 19 45 02/14/20 08:30 98.4 70 18 95/60 (72) 100 02/14/20 08:00 45 02/14/20 08:00 Mechanical Ventilator 02/14/20 08:00 71 18 103/52 (69) 100 02/14/20 07:30 71 18 45 02/14/20 07:30 72 18 102/61 (75) 100 02/14/20 07:15 72 18 95/56 (69) 100 02/14/20 07:00 73 18 99/39 (59) 100 02/14/20 07:00 18 Mechanical Ventilator 45 02/14/20 06:45 79 18 108/70 (83) 100 02/14/20 06:30 84 19 109/73 (85) 100 02/14/20 06:15 83 19 112/10 (44) 100 02/14/20 06:00 19 Mechanical Ventilator 45 02/14/20 06:00 79 19 98/65 (76) 100 02/14/20 05:45 72 18 103/71 (82) 100 02/14/20 05:39 72 18 90/69 (76) 100 02/14/20 05:30 67 18 84/57 (66) 100 8/18/20 05:15 66 18 90/54 (66) 100 02/14/20 05:03 68 18 45 02/14/20 05:00 68 18 84/48 (60) 100 02/14/20 05:00 18 Mechanical Ventilator 45 02/14/20 04:45 70 18 84/44 (57) 100 02/14/20 04:30 85 19 102/62 (75) 100 02/14/20 04:15 78 19 86/73 (77) 100 02/14/20 04:15 19 Mechanical Ventilator 45 02/14/20 04:00 Mechanical Ventilator 02/14/20 04:00 18 Mechanical Ventilator 45 02/14/20 04:00 98.0 69 18 88/52 (64) 100 02/14/20 03:45 68 18 87/50 (62) 100 02/14/20 03:39 68 18 85/51 (62) 100 02/14/20 03:39 68 18 45 02/14/20 03:30 18 Mechanical Ventilator 45 02/14/20 03:30 68 18 82/51 (61) 100 02/14/20 03:15 70 18 82/48 (59) 100 02/14/20 03:15 18 Non-Rebreather 45 02/14/20 03:00 18 Mechanical Ventilator 45 02/14/20 03:00 75 18 84/50 (61) 100 02/14/20 02:45 87 18 94/75 (81) 100 02/14/20 02:43 90 19 92/73 (79) 100 02/14/20 02:30 15 Mechanical Ventilator 45 02/14/20 02:30 78 15 98/82 (87) 100 02/14/20 02:15 18 Mechanical Ventilator 45 02/14/20 02:15 72 18 92/47 (62) 100 02/14/20 02:00 18 Mechanical Ventilator 45 02/14/20 02:00 72 18 89/48 (62) 100 02/14/20 01:45 71 18 100 Mechanical Ventilator 45 02/14/20 01:45 72 18 92/51 (65) 100 02/14/20 01:45 71 18 45 02/14/20 01:30 72 18 86/40 (55) 100 02/14/20 01:23 18 Mechanical Ventilator 45 02/14/20 01:15 74 18 85/44 (58) 100 02/14/20 01:00 Mechanical Ventilator 02/14/20 01:00 77 18 82/48 (59) 100 02/14/20 00:53 101.8 80 18 87/51 (63) 100 02/14/20 00:51 45 02/14/20 00:48 81 02/14/20 00:34 81 02/14/20 00:20 102.0 85 18 91/53 100 Mechanical Ventilator 45 02/14/20 00:20 18 Mechanical Ventilator 45 02/14/20 00:00 102.0 95 18 94/60 100 Mechanical Ventilator 60 02/13/20 23:31 114 18 60 02/13/20 23:30 86 18 93/58 100 Mechanical Ventilator 60 02/13/20 23:02 Mechanical Ventilator 60 02/13/20 23:00 95 18 90/50 100 Mechanical Ventilator 60 02/13/20 22:47 18 60 02/13/20 22:32 18 60 02/13/20 22:20 105 18 97/53 100 Mechanical Ventilator 60 02/13/20 22:17 18 Mechanical Ventilator 60 02/13/20 22:17 18 Mechanical Ventilator 60 02/13/20 22:04 102.0 02/13/20 22:00 104.4 104 18 95/50 100 Mechanical Ventilator 60 02/13/20 21:40 104.4 115 18 97/50 100 Mechanical Ventilator 60 02/13/20 21:39 121 18 60 02/13/20 21:30 115 18 Mechanical Ventilator 60 02/13/20 21:15 60 02/13/20 21:00 145 29 Nasal Cannula 5.0 02/13/20 21:00 104.4 145 29 131/71 97 Nasal Cannula 5.0 02/13/20 20:37 102.0 135 22 83/42 (56) 97 Room Air Labs: Labs Test 02/13/20 20:46 02/13/20 21:02 02/13/20 23:59 02/14/20 00:46 Arterial Blood pH 7.436 (7.350-7.450) Arterial Blood Partial Pressure CO2 34.9 mmHg (35.0-45.0) Arterial Blood Partial Pressure O2 70.9 mmHg (75.0-100.0) Arterial Blood HCO3 23.0 mmol/L (22.0-26.0) Arterial Blood Oxygen Saturation 94.3 % (95-100) Arterial Blood Base Excess -0.9 (-2-2) Jax Test Positive White Blood Count 10.0 K/UL (4.8-10.8) Red Blood Count 4.06 M/UL (4.20-5.40) Hemoglobin 12.8 G/DL (12.0-16.0) Hematocrit 40.2 % (37.0-47.0) Mean Corpuscular Volume 99 FL (80-99) Mean Corpuscular Hemoglobin 31.6 PG (27.0-31.0) Mean Corpuscular Hemoglobin Concent 31.9 G/DL (32.0-36.0) Red Cell Distribution Width 13.2 % (11.6-14.8) Platelet Count 157 K/UL (150-450) Mean Platelet Volume 10.1 FL (6.5-10.1) Neutrophils (%) (Auto) 73.7 % (45.0-75.0) Lymphocytes (%) (Auto) 20.2 % (20.0-45.0) Monocytes (%) (Auto) 5.2 % (1.0-10.0) Eosinophils (%) (Auto) 0.2 % (0.0-3.0) Basophils (%) (Auto) 0.8 % (0.0-2.0) Prothrombin Time 13.1 SEC (9.30-11.50) Prothromb Time International Ratio 1.2 (0.9-1.1) Activated Partial Thromboplast Time 27 SEC (23-33) Urine Color Yellow Urine Appearance Cloudy Urine pH 6.5 (4.5-8.0) Urine Specific [place] 1.015 (1.005-1.035) Urine Protein 3+ (NEGATIVE) Urine Glucose (UA) Negative (NEGATIVE) Urine Ketones Negative (NEGATIVE) Urine Blood 1+ (NEGATIVE) Urine Nitrite Positive (NEGATIVE) Urine Bilirubin Negative (NEGATIVE) Urine Urobilinogen Normal MG/DL (0.0-1.0) Urine Leukocyte Esterase 1+ (NEGATIVE) Urine RBC 2-4 /HPF (0 - 2) Urine WBC 15-20 /HPF (0 - 2) Urine Squamous Epithelial Cells Moderate /LPF (NONE/OCC) Urine Amorphous Sediment Moderate /LPF (NONE) Urine Bacteria Many /HPF (NONE) Sodium Level 146 MMOL/L (136-145) Potassium Level 4.4 MMOL/L (3.5-5.1) Chloride Level 107 MMOL/L (98-107) Carbon Dioxide Level 29 MMOL/L (21-32) Anion Gap 10 mmol/L (5-15) Blood Urea Nitrogen 18 mg/dL (7-18) Creatinine 0.6 MG/DL (0.55-1.30) Estimat Glomerular Filtration Rate > 60 mL/min (>60) Glucose Level 168 MG/DL (74-106) Lactic Acid Level 2.80 mmol/L (0.4-2.0) 2.70 mmol/L (0.66-2.22) Calcium Level 8.4 MG/DL (8.5-10.1) Magnesium Level 1.8 MG/DL (1.8-2.4) Total Bilirubin 0.4 MG/DL (0.2-1.0) Aspartate Amino Transf (AST/SGOT) 48 U/L (15-37) Alanine Aminotransferase (ALT/SGPT) 43 U/L (12-78) Alkaline Phosphatase 141 U/L (46-116) Total Creatine Kinase 268 U/L (26-308) Troponin I 0.143 ng/mL (0.000-0.056) Pro-B-Type Natriuretic Peptide 3045 pg/mL (0-125) Total Protein 7.7 G/DL (6.4-8.2) Albumin 3.4 G/DL (3.4-5.0) Globulin 4.3 g/dL Albumin/Globulin Ratio 0.8 (1.0-2.7) Lipase 79 U/L (73-393) Carbamazepine (Tegretol) Level 10.5 ug/mL (4.0-12.0) Test 02/14/20 02:05 02/14/20 08:36 Ferritin 111 NG/ML (8-388) Lactate Dehydrogenase 299 U/L (81-234) C-Reactive Protein, Quantitative 3.9 mg/dL (0.00-0.90) Arterial Blood pH 7.461 (7.350-7.450) Arterial Blood Partial Pressure CO2 24.7 mmHg (35.0-45.0) Arterial Blood Partial Pressure O2 144.0 mmHg (75.0-100.0) Arterial Blood HCO3 17.2 mmol/L (22.0-26.0) Arterial Blood Oxygen Saturation 98.5 % (95-100) Arterial Blood Base Excess -5.3 (-2-2) Jax Test Positive Objective: WDWN NAD clear breath sounds bilaterally without rhonchi or wheeze [id number] without MRG NABS nontender no HSM no CCE nonfocal poor LOC intubated Micro: Microbiology Date/Time Source Procedure Growth Status 02/13/20 21:02 Nasopharynx SARS-CoV-2 RdRp Gene Assay - Final Complete Juan Snow MD Feb 14, 2020 09:20
[2020-02-14] MEDS ORDERED: Ertapenem 1 GM in NS 55 ML IVPB ONE (10:00)
[2020-02-14] MEDS: Cefepime HCl 1 GM in D5W 55 ML IVPB SCH ×2 (11:34→21:22)
[2020-02-14] MEDS: OPSUMIT 10 MG ORAL SCH (13:00)
[2020-02-14] MEDS: SELEXIPAG ORAL SCH ×2 (13:21→18:02)
--- NOTE | 2020-02-14 15:00 | Consultation ---
DATE OF CONSULTATION: 02/14/2020 INFECTIOUS DISEASE CONSULTATION CONSULTING PHYSICIAN: Maci Deleon MD. REFERRING PHYSICIAN: Juan Snow MD. REASON FOR CONSULTATION: Urinary tract infection and fever. HISTORY OF PRESENTING ILLNESS: This is a 49-year-old lady with history of pulmonary hypertension, neurofibromatosis, seizures, and deafness, who was transferred by family members because of altered mental status and letharginess. She was found to have fever. She has been intubated and an Infectious Disease consultation has been obtained for antibiotics for urinary tract infection. PAST MEDICAL HISTORY: 1. History of neurofibromatosis. 2. Pulmonary hypertension. 3. Seizures. 4. Deafness. SOCIAL HISTORY: No history of smoking, alcohol, or drug use. FAMILY HISTORY: Unknown. REVIEW OF SYSTEMS: Unable to obtain currently. MEDICATIONS: As an inpatient, she is on lansoprazole, Eliquis, Tegretol, Lasix, gabapentin, sildenafil, vancomycin, Tylenol, and midazolam. ALLERGIES: Penicillin as well as fish. PHYSICAL EXAMINATION: VITAL SIGNS: Temperature 98.4, T-max of 104.4, pulse of 71, respiratory rate 18, blood pressure 102/61. O2 saturation 100% on 45% FiO2. HEENT: The patient is intubated. NECK: Supple. No adenopathy. No JVD. CARDIOVASCULAR: Regular rate and rhythm. No murmurs. LUNGS: Clear to auscultation bilaterally. No crackles. No wheezes. ABDOMEN: Soft, nontender. No organomegaly. EXTREMITIES: No cyanosis, no clubbing, no edema. LABORATORY AND DIAGNOSTIC DATA: White count of 10, hemoglobin 12.8, hematocrit 40.2, MCV 99, platelet count of 157,000 with neutrophils of 73%. Sodium 146, potassium 4.4, chloride 107, bicarb 29, BUN 18, creatinine 0.6. Glucose 168. Calcium 8.4. Magnesium 1.8. Total bilirubin 0.4, AST 48, ALT 43, and alkaline phosphatase 141. LDH 299. Troponin 0.143. CK of 268. C-reactive protein 3.9. Total protein 7.7, albumin 3.4. Lipase of 79. UA showing 15 to 20 white cells. COVID-19 rapid test is negative. Chest x-ray is showing no acute cardiopulmonary disease. Abdominal x-ray is showing mildly prominent small bowel loops. ASSESSMENT: This is a 49-year-old lady with history of seizures, pulmonary hypertension, and neurofibromatosis, who comes in because of altered mental status and is found to have, 1. Fevers, could be secondary to urinary tract infection. 2. Seizures. 3. Respiratory failure. 4. Pulmonary hypertension. 5. Neurofibromatosis. PLAN: 1. Continue IV vancomycin. 2. We will start the patient on cefepime. 3. We will order urine culture. 4. We will follow up cultures and adjust antibiotics accordingly. I would like to thank Dr. Snow for this consultation. Maci Deleon M.D. DR: DANIS JOB#: [id number] CC:
[2020-02-14 16:50] LABS: BASOPHILS % (AUTO) 0.6 % (0.0-2.0); EOSINOPHILS % (AUTO) 0.7 % (0.0-3.0); HEMATOCRIT 33.5 % (37.0-47.0); HEMOGLOBIN 10.5 G/DL (12.0-16.0); LYMPHOCYTES % (AUTO) 12.3 % (20.0-45.0); MEAN CORPUSCULAR VOLUME 99 FL (80-99); MONOCYTES % (AUTO) 6.5 % (1.0-10.0); PLATELET COUNT 109 K/UL (150-450); RED CELL DISTRIBUTION WIDTH 13.2 % (11.6-14.8); WHITE BLOOD COUNT 9.1 K/UL (4.8-10.8)
[2020-02-14 16:57] LABS: ANION GAP 12 mmol/L (5-15); BLOOD UREA NITROGEN 14 mg/dL (7-18); CARBON DIOXIDE 22 MMOL/L (21-32); CHLORIDE 110 MMOL/L (98-107); CREATININE 0.4 MG/DL (0.55-1.30); POTASSIUM 3.4 MMOL/L (3.5-5.1); SODIUM 144 MMOL/L (136-145)
[2020-02-15] VITALS (92 sets, daily range): BP systolic 82–163; BP diastolic 35–94
[2020-02-15] MEDS: Midazolam for drip 50 MG in NS 90 ML IV SCH ×2 (00:54→15:29)
--- NOTE | 2020-02-15 01:00 | Consultation ---
DATE OF CONSULTATION: 02/14/2020 CARDIOLOGY CONSULT REFERRING PHYSICIAN: Juan Snow M.D. and Liborio Dugan M.D. REASON: Elevated troponin level. HISTORY OF PRESENT ILLNESS: This 49-year-old female, with neurofibromatosis, seizure disorder, and pulmonary hypertension, was altered in mentation transferred to the emergency room and notably febrile. She required intubation and mechanical ventilation. She has been started on antimicrobials. Initial COVID-19 swab was negative. PAST MEDICAL HISTORY: Neurofibromatosis, pulmonary hypertension, seizure disorder, deafness. ALLERGIES: Penicillin. MEDICATIONS: Reviewed and reconciled. FAMILY HISTORY: Noncontributory. SOCIAL HISTORY: Negative for smoking, alcohol, or substance abuse. REVIEW OF SYSTEMS: Not obtainable. PHYSICAL EXAMINATION: VITAL SIGNS: Temperature in the emergency room was up to 104.4. Initial blood pressure 95/86 and currently 120/75, pulse 81, respirations 13, temperature 99.2. GENERAL: Orally intubated. Sedated. NECK: Supple. LUNGS: Bilateral breath sounds with no wheezing or rales. CARDIAC: Regular rhythm and rate. Normal S1, S2 with no murmur. ABDOMEN: Soft. EXTREMITIES: Without edema. NEUROLOGIC: She moves all extremities, but with left-sided paresis. LABORATORY DATA: Labs on admission were notable for a troponin I of 0.143, troponin today 0.388. Sodium 144, potassium 3.4, bicarb 22, BUN 14, creatinine 0.4. ABG on admission 7.43, 35, 71. White count 9.1, hemoglobin 10.5. Urinalysis with 15-20 white cells and many bacteria. Electrocardiogram revealed sinus tachycardia. No acute ST-T wave changes. Radiograph of the chest with no infiltrate or effusion. No congestion. IMPRESSION: 1. Respiratory failure. 2. Sepsis with shock. 3. Hab-[id number]-[id number] myocardial infarction, likely precipitated by above. 4. History of pulmonary hypertension. 5. Hypovolemia and dehydration. 6. Neurofibromatosis. 7. Urinary tract infection. 8. Possible aspiration. PLAN: 1. Ventilator support. 2. Antimicrobials per infectious disease project consultant. 3. Volume resuscitation by IV route. 4. Antiplatelet therapy. 5. Reassess for beta-blockade once blood pressure parameters stabilize. 6. Respiratory hygiene. 7. DVT prophylaxis. 8. Seizure precautions. 9. Antipyretic. 10. Echocardiogram to follow. Marcus Main M.D. DR: MARYCARMEN JOB#: [id number] CC:
[2020-02-15 05:20] LABS: BASOPHILS % (AUTO) 0.6 % (0.0-2.0); EOSINOPHILS % (AUTO) 0.3 % (0.0-3.0); HEMATOCRIT 35.1 % (37.0-47.0); HEMOGLOBIN 11.3 G/DL (12.0-16.0); MEAN CORPUSCULAR VOLUME 96 FL (80-99); MONOCYTES % (AUTO) 6.7 % (1.0-10.0); NEUTROPHILS % (AUTO) 80.5 % (45.0-75.0); PLATELET COUNT 128 K/UL (150-450); RED BLOOD COUNT 3.64 M/UL (4.20-5.40); RED CELL DISTRIBUTION WIDTH 12.4 % (11.6-14.8); WHITE BLOOD COUNT 9.1 K/UL (4.8-10.8)
[2020-02-15] MEDS: Vancomycin 750mg/D5W 275ml IVPB SCH ×6 (05:32→21:24)
[2020-02-15 05:46] LABS: ALANINE AMINOTRANSFERASE 64 U/L (12-78); ALBUMIN 2.4 G/DL (3.4-5.0); ALBUMIN/GLOBULIN RATIO 0.7 (1.0-2.7); ALKALINE PHOSPHATASE 115 U/L (46-116); ANION GAP 8 mmol/L (5-15); ASPARTATE AMINO TRANSFERASE 66 U/L (15-37); BILIRUBIN,TOTAL 0.9 MG/DL (0.2-1.0); BLOOD UREA NITROGEN 12 mg/dL (7-18); CARBON DIOXIDE 22 MMOL/L (21-32); CHLORIDE 109 MMOL/L (98-107); CKMB 4.4 NG/ML (0.0-3.6); CREATINE KINASE 569 U/L (26-308); CREATININE 0.6 MG/DL (0.55-1.30); POTASSIUM 3.4 MMOL/L (3.5-5.1); SODIUM 139 MMOL/L (136-145)
--- NOTE | 2020-02-15 08:48 | General Progress Note ---
Assessment/Plan Problem List: (1) Seizure disorder ICD Codes: G40.909 - Epilepsy, unspecified, not intractable,without status epilepticus SNOMED: 820721183 (2) Pulmonary hypertension ICD Codes: I27.20 - Pulmonary hypertension, unspecified SNOMED: 12053409 (3) Respiratory failure ICD Codes: J96.90 - Respiratory failure, unspecified, unspecified whether with hypoxia or hypercapnia SNOMED: 034990003 Qualifiers: Qualified Codes: J96.01 - Acute respiratory failure with hypoxia (4) Severe sepsis ICD Codes: A41.9 - Sepsis, unspecified organism; R65.20 - Severe sepsis without septic shock SNOMED: 22662529 (5) NSTEMI (non-ST elevated myocardial infarction) ICD Codes: I21.4 - Non-ST elevation (NSTEMI) myocardial infarction SNOMED: 86676716 (6) Fever ICD Codes: R50.9 - Fever, unspecified SNOMED: 670145244 (7) Dyspnea ICD Codes: R06.00 - Dyspnea, unspecified SNOMED: 052035292 Status: stable, not improved Assessment/Plan: cont vent support wean sedation sz rx Neuro eval iv abx follow up cultures replace lytes dvt/stress ulcer prophylaxis tube feeds turn q2 d/w famiyl x 15 mins poc and test results Subjective ROS Limited/Unobtainable: Yes Constitutional: Reports: malaise, weakness HEENT: Reports: no symptoms Cardiovascular: Reports: no symptoms Respiratory: Reports: shortness of breath, sputum Gastrointestinal/Abdominal: Reports: difficulty swallowing Genitourinary: Reports: no symptoms Neurologic/Psychiatric: Reports: pre-existing deficit, seizure Endocrine: Reports: no symptoms Hematologic/Lymphatic: Reports: anemia Allergies: Coded Allergies: PENICILLINS (Verified Allergy, Severe, 08/07/12) FISH CONTAINING PRODUCTS (Verified Allergy, Unknown, 06/02/18) Uncoded Allergies: seafood (Allergy, Unknown, 06/02/18) All Systems: reviewed and negative except above Subjective no events. remains sedated on propfol. no szs. on ivf. stable on the vent. poorly responsive. no fevers. labs noted. on iv abx. cultures neg so far. Objective Last 24 Hour Vital Signs Date Time Temp Pulse Resp B/P (MAP) Pulse Ox O2 Delivery O2 Flow Rate FiO2 02/15/20 07:21 104 15 30 8/19/20 07:00 103 15 144/78 (100) 100 02/15/20 07:00 15 Mechanical Ventilator 30 02/15/20 06:45 102 16 144/78 (100) 100 02/15/20 06:30 74 20 02/15/20 06:30 103 16 144/81 (102) 100 02/15/20 06:15 104 17 147/78 (101) 100 02/15/20 06:00 16 Mechanical Ventilator 30 02/15/20 06:00 103 16 148/77 (100) 100 02/15/20 05:45 103 17 148/83 (104) 100 02/15/20 05:30 102 16 145/81 (102) 100 02/15/20 05:15 102 16 140/71 (94) 100 02/15/20 05:15 102 16 30 02/15/20 05:00 103 17 141/70 (93) 100 02/15/20 05:00 16 Mechanical Ventilator 30 02/15/20 04:45 103 20 132/65 (87) 100 02/15/20 04:30 99 18 133/73 (93) 100 02/15/20 04:15 101 18 145/82 (103) 100 02/15/20 04:00 99.2 100 19 143/79 (100) 100 02/15/20 04:00 19 Mechanical Ventilator 30 02/15/20 04:00 30 02/15/20 04:00 Mechanical Ventilator 02/15/20 03:45 100 17 145/79 (101) 100 02/15/20 03:45 99 02/15/20 03:30 96 17 143/93 (110) 100 02/15/20 03:26 98 18 30 02/15/20 03:15 93 16 133/79 (97) 100 02/15/20 03:00 93 16 140/79 (99) 100 02/15/20 03:00 17 Mechanical Ventilator 30 02/15/20 02:45 90 15 136/73 (94) 100 02/15/20 02:30 90 15 135/82 (99) 100 02/15/20 02:15 89 14 123/70 (87) 100 02/15/20 02:00 16 Mechanical Ventilator 35 02/15/20 02:00 89 13 126/68 (87) 100 02/15/20 01:45 89 14 120/69 (86) 100 02/15/20 01:30 86 14 124/74 (91) 100 02/15/20 01:15 87 16 124/71 (88) 100 02/15/20 01:07 85 14 35 02/15/20 01:00 88 15 123/75 (91) 100 02/15/20 01:00 17 Mechanical Ventilator 35 02/15/20 00:54 15 Mechanical Ventilator 35 02/15/20 00:45 87 13 127/65 (85) 100 02/15/20 00:30 86 13 122/69 (86) 100 02/15/20 00:15 86 13 122/62 (82) 100 02/15/20 00:00 Mechanical Ventilator 02/15/20 00:00 13 Mechanical Ventilator 35 02/15/20 00:00 35 02/15/20 00:00 98.8 87 14 125/68 (87) 100 02/14/20 23:45 86 14 118/66 (83) 100 02/14/20 23:30 88 14 123/66 (85) 100 02/14/20 23:15 86 02/14/20 23:15 85 13 112/63 (79) 100 02/14/20 23:00 15 Mechanical Ventilator 35 02/14/20 23:00 86 13 114/60 (78) 100 02/14/20 22:45 90 14 131/67 (88) 100 02/14/20 22:41 86 16 35 02/14/20 22:30 86 14 122/64 (83) 100 02/14/20 22:15 87 14 127/67 (87) 100 02/14/20 22:00 91 18 140/72 (94) 100 02/14/20 22:00 15 Mechanical Ventilator 35 02/14/20 21:45 88 16 134/65 (88) 100 02/14/20 21:30 86 16 127/60 (82) 100 02/14/20 21:19 82 13 35 02/14/20 21:15 86 15 124/66 (85) 100 02/14/20 21:00 15 Mechanical Ventilator 35 02/14/20 21:00 84 14 127/70 (89) 100 02/14/20 20:45 84 16 123/65 (84) 100 02/14/20 20:30 83 14 127/54 (78) 100 1820 20:15 84 14 122/58 (79) 100 20 20:00 15 Mechanical Ventilator 35 02/14/20 20:00 Mechanical Ventilator 02/14/20 20:00 35 20 20:00 98.3 82 13 119/68 (85) 100 1820 19:45 81 15 118/61 (80) 100 1820 19:30 83 13 118/67 (84) 100 1820 19:30 83 13 35 18/20 19:17 80 02/14/20 19:00 81 14 114/64 (81) 100 02/14/20 19:00 14 Endotracheal Tube 35 02/14/20 18:30 99.2 81 13 121/67 (85) 100 18/20 18:30 81 13 121/67 (85) 100 18/20 18:00 81 12 114/62 (79) 100 02/14/20 18:00 12 Endotracheal Tube 35 02/14/20 17:30 81 13 117/71 (86) 100 02/14/20 17:00 81 13 120/75 (90) 100 20 17:00 13 Endotracheal Tube 35 02/14/20 16:37 83 13 35 02/14/20 16:30 82 13 117/68 (84) 100 20 16:00 35 20 16:00 13 Endotracheal Tube 35 02/14/20 16:00 80 02/14/20 16:00 Mechanical Ventilator 02/14/20 16:00 80 13 97/58 (71) 100 02/14/20 15:30 81 14 101/58 (72) 100 02/13/20 15:00 79 12 35 20 15:00 13 Endotracheal Tube 35 02/14/20 15:00 79 13 102/51 (68) 100 02/14/20 14:30 80 14 100/58 (72) 100 02/14/20 14:00 76 13 103/54 (70) 20 14:00 13 Endotracheal Tube 35 02/14/20 13:30 76 12 94/59 (71) 02/14/20 13:00 79 12 92/58 (69) 02/14/20 13:00 12 Endotracheal Tube 35 02/14/20 12:54 76 13 35 02/14/20 12:30 75 12 97/53 (68) 02/14/20 12:20 12 Endotracheal Tube 5.0 35 02/14/20 12:00 Mechanical Ventilator 02/14/20 12:00 12 Endotracheal Tube 35 02/14/20 12:00 97.2 77 12 96/56 (69) 02/14/20 12:00 35 02/14/20 11:30 80 12 95/58 (70) 02/14/20 11:17 81 02/14/20 11:00 12 Endotracheal Tube 35 02/14/20 11:00 91 12 108/53 (71) 100 02/14/20 10:53 72 12 35 02/14/20 10:30 72 15 92/51 (65) 100 02/14/20 10:00 18 Endotracheal Tube 35 02/14/20 10:00 73 18 96/52 (67) 100 02/14/20 09:30 73 18 96/61 (73) 100 02/14/20 09:00 18 Endotracheal Tube 45 02/14/20 09:00 72 18 100/49 (66) 100 Intake and Output 02/14/20 02/15/20 19:00 07:00 Intake Total 1865.990 ml 1864.3584 ml Output Total 300 ml 410 ml Balance 1565.990 ml 1454.3584 ml IV Total 1865.990 ml 1864.3584 ml Output Urine Total 300 ml 410 ml Laboratory Tests 02/14/20 16:15: White Blood Count 9.1, Red Blood Count 3.40L, Hemoglobin 10.5L, Hematocrit 33.5L , Mean Corpuscular Volume 99, Mean Corpuscular Hemoglobin 30.8, Mean Corpuscular Hemoglobin Concent 31.2L, Red Cell Distribution Width 13.2, Platelet Count 109L, Mean Platelet Volume 10.9H, Neutrophils (%) (Auto) 80.0H, Lymphocytes (%) (Auto) 12.3L, Monocytes (%) (Auto) 6.5, Eosinophils (%) (Auto) 0.7, Basophils (%) (Auto) 0.6, D-Dimer 1.60H, Sodium Level 144, Potassium Level 3.4L, Chloride Level 110H, Carbon Dioxide Level 22, Anion Gap 12, Blood Urea Nitrogen 14, Creatinine 0.4L, Estimat Glomerular Filtration Rate > 60, Glucose Level 101, Lactic Acid Level 0.60, Calcium Level 7.0L, Troponin I 0.388H 02/14/20 22:00: Vancomycin Level Trough 14.6H 02/15/20 04:50: White Blood Count 9.1, Red Blood Count 3.64L, Hemoglobin 11.3L, Hematocrit 35.1L , Mean Corpuscular Volume 96, Mean Corpuscular Hemoglobin 30.9, Mean Corpuscular Hemoglobin Concent 32.1, Red Cell Distribution Width 12.4, Platelet Count 128L, Mean Platelet Volume 10.4H, Neutrophils (%) (Auto) 80.5H, Lymphocytes (%) (Auto) 12.0L, Monocytes (%) (Auto) 6.7, Eosinophils (%) (Auto) 0.3, Basophils (%) (Auto) 0.6, Sodium Level 139, Potassium Level 3.4L, Chloride Level 109H, Carbon Dioxide Level 22, Anion Gap 8, Blood Urea Nitrogen 12, Creatinine 0.6, Estimat Glomerular Filtration Rate > 60, Glucose Level 91, Calcium Level 8.0L, Troponin I 0.392H, Magnesium Level 1.5L, Total Bilirubin 0.9 , Aspartate Amino Transf (AST/SGOT) 66H, Alanine Aminotransferase (ALT/SGPT) 64 , Alkaline Phosphatase 115, Total Creatine Kinase 569H, Creatine Kinase MB 4.4H , Creatine Kinase MB Relative Index 0.7, Pro-B-Type Natriuretic Peptide 2136H, Total Protein 5.9L, Albumin 2.4L, Globulin 3.5, Albumin/Globulin Ratio 0.7L, Thyroid Stimulating Hormone (TSH) 0.952 Height (Feet): 5 Height (Inches): 5.00 Weight (Pounds): 115 General Appearance: WD/WN, confused EENT: PERRL/EOMI, normal ENT inspection Neck: non-tender, normal alignment Cardiovascular: normal peripheral pulses, normal rate Respiratory/Chest: chest wall non-tender, lungs clear, normal breath sounds Abdomen: normal bowel sounds, non tender Edema: no edema noted Arm (L), no edema noted Arm (R) Neurologic: disoriented, unresponsive Skin: normal pigmentation Lymphatic: normal anterior cervical (L), normal anterior cervical (R) Liborio Dugan MD Feb 15, 2020 08:48
[2020-02-15] MEDS: OPSUMIT 10 MG ORAL SCH (09:00)
[2020-02-15] MEDS ORDERED: LORazepam Inj 2mg/ml 1ml IV PRN (09:30)
--- NOTE | 2020-02-15 09:36 | Critical Care Progress Note ---
Assessment/Plan Assessment/Plan respiratory failure pneumonia improved pulmonary hypertension elevated troponin possible NSTEMI paraplegia hypoxemia seizure history brain masses, chronic moderate PCM PLAN care noted IV antibiotics respiratory care Ventilatory support sedation as needed monitor acid base supportive care suction no wean for today await improvement in heart rate titrate seizure meds oxygen therapy prognosis guarded medications/laboratory data/nursing notes/ICU care reviewed in detail note reviewed and edited care discussed with RN and RT ICU time spent >40 minutes Critical Care - Subjective Interval Events: care noted still tachy on vent changes reviewed and discussed ROS Limited/Unobtainable: Yes Condition: critical EKG Rhythm: Sinus Tachycardia Residuals: minimal Tube Feeding Tolerated: yes I&O: Intake and Output 02/14/20 02/15/20 19:00 07:00 Intake Total 1865.990 ml 1864.3584 ml Output Total 300 ml 410 ml Balance 1565.990 ml 1454.3584 ml IV Total 1865.990 ml 1864.3584 ml Output Urine Total 300 ml 410 ml Critical Care - Objective ET-Tube: 7.0 ET Position: 23 Last 24 Hour Vital Signs Date Time Temp Pulse Resp B/P (MAP) Pulse Ox O2 Delivery O2 Flow Rate FiO2 02/15/20 09:10 107 15 30 02/15/20 08:45 110 17 144/49 (80) 100 02/15/20 08:30 111 16 163/94 (117) 100 02/15/20 08:15 110 17 163/92 (115) 100 02/15/20 08:00 30 02/15/20 08:00 100.1 107 16 154/83 (106) 100 02/15/20 07:45 106 15 156/90 (112) 100 02/15/20 07:30 104 15 147/89 (108) 100 02/15/20 07:21 104 15 30 02/15/20 07:15 102 14 141/75 (97) 100 02/15/20 07:00 103 15 144/78 (100) 100 02/15/20 07:00 15 Mechanical Ventilator 30 02/15/20 06:45 102 16 144/78 (100) 100 02/15/20 06:30 74 20 02/15/20 06:30 103 16 144/81 (102) 100 02/15/20 06:15 104 17 147/78 (101) 100 02/15/20 06:00 16 Mechanical Ventilator 30 02/15/20 06:00 103 16 148/77 (100) 100 02/15/20 05:45 103 17 148/83 (104) 100 02/15/20 05:30 102 16 145/81 (102) 100 02/15/20 05:15 102 16 140/71 (94) 100 02/15/20 05:15 102 16 30 02/15/20 05:00 103 17 141/70 (93) 100 02/15/20 05:00 16 Mechanical Ventilator 30 02/15/20 04:45 103 20 132/65 (87) 100 02/15/20 04:30 99 18 133/73 (93) 100 02/15/20 04:15 101 18 145/82 (103) 100 02/15/20 04:00 99.2 100 19 143/79 (100) 100 02/15/20 04:00 19 Mechanical Ventilator 30 02/15/20 04:00 30 02/15/20 04:00 Mechanical Ventilator 02/15/20 03:45 100 17 145/79 (101) 100 02/15/20 03:45 99 02/15/20 03:30 96 17 143/93 (110) 100 02/15/20 03:26 98 18 30 02/15/20 03:15 93 16 133/79 (97) 100 02/15/20 03:00 93 16 140/79 (99) 100 02/15/20 03:00 17 Mechanical Ventilator 30 02/15/20 02:45 90 15 136/73 (94) 100 02/15/20 02:30 90 15 135/82 (99) 100 02/15/20 02:15 89 14 123/70 (87) 100 02/15/20 02:00 16 Mechanical Ventilator 35 02/15/20 02:00 89 13 126/68 (87) 100 02/15/20 01:45 89 14 120/69 (86) 100 02/15/20 01:30 86 14 124/74 (91) 100 02/15/20 01:15 87 16 124/71 (88) 100 02/15/20 01:07 85 14 35 02/15/20 01:00 88 15 123/75 (91) 100 02/15/20 01:00 17 Mechanical Ventilator 35 02/15/20 00:54 15 Mechanical Ventilator 35 02/15/20 00:45 87 13 127/65 (85) 100 02/15/20 00:30 86 13 122/69 (86) 100 02/15/20 00:15 86 13 122/62 (82) 100 02/15/20 00:00 Mechanical Ventilator 8 00:00 13 Mechanical Ventilator 35 02/15/20 00:00 35 02/15/20 00:00 98.8 87 14 125/68 (87) 100 18 23:45 86 14 118/66 (83) 100 18 23:30 88 14 123/66 (85) 100 18 23:15 86 18 23:15 85 13 112/63 (79) 100 02/14/20 23:00 15 Mechanical Ventilator 35 02/14/20 23:00 86 13 114/60 (78) 100 02/14/20 22:45 90 14 131/67 (88) 100 02/14/20 22:41 86 16 35 02/14/20 22:30 86 14 122/64 (83) 100 02/14/20 22:15 87 14 127/67 (87) 100 02/14/20 22:00 91 18 140/72 (94) 100 02/14/20 22:00 15 Mechanical Ventilator 35 02/14/20 21:45 88 16 134/65 (88) 100 1820 21:30 86 16 127/60 (82) 100 1820 21:19 82 13 35 02/14/20 21:15 86 15 124/66 (85) 100 02/14/20 21:00 15 Mechanical Ventilator 35 02/14/20 21:00 84 14 127/70 (89) 100 20 20:45 84 16 123/65 (84) 100 1820 20:30 83 14 127/54 (78) 100 18 20:15 84 14 122/58 (79) 100 20 20:00 15 Mechanical Ventilator 35 02/14/20 20:00 Mechanical Ventilator 8 20:00 35 02/14/20 20:00 98.3 82 13 119/68 (85) 100 18 19:45 81 15 118/61 (80) 100 8/18/20 19:30 83 13 118/67 (84) 100 02/14/20 19:30 83 13 35 02/14/20 19:17 80 02/14/20 19:00 81 14 114/64 (81) 100 02/14/20 19:00 14 Endotracheal Tube 35 02/14/20 18:30 99.2 81 13 121/67 (85) 100 1820 18:30 81 13 121/67 (85) 100 02/14/20 18:00 81 12 114/62 (79) 100 02/14/20 18:00 12 Endotracheal Tube 35 02/14/20 17:30 81 13 117/71 (86) 100 02/14/20 17:00 81 13 120/75 (90) 100 02/14/20 17:00 13 Endotracheal Tube 35 02/14/20 16:37 83 13 35 02/14/20 16:30 82 13 117/68 (84) 100 02/14/20 16:00 35 02/14/20 16:00 13 Endotracheal Tube 35 02/14/20 16:00 80 02/14/20 16:00 Mechanical Ventilator 02/14/20 16:00 80 13 97/58 (71) 100 02/14/20 15:30 81 14 101/58 (72) 100 02/14/20 15:00 79 12 35 02/14/20 15:00 13 Endotracheal Tube 35 02/14/20 15:00 79 13 102/51 (68) 100 02/14/20 14:30 80 14 100/58 (72) 100 02/14/20 14:00 76 13 103/54 (70) 02/14/20 14:00 13 Endotracheal Tube 35 02/14/20 13:30 76 12 94/59 (71) 02/14/20 13:00 79 12 92/58 (69) 02/14/20 13:00 12 Endotracheal Tube 35 02/14/20 12:54 76 13 35 02/14/20 12:30 75 12 97/53 (68) 02/14/20 12:20 12 Endotracheal Tube 5.0 35 02/14/20 12:00 Mechanical Ventilator 02/14/20 12:00 12 Endotracheal Tube 35 02/14/20 12:00 97.2 77 12 96/56 (69) 02/14/20 12:00 35 02/14/20 11:30 80 12 95/58 (70) 02/14/20 11:17 81 02/14/20 11:00 12 Endotracheal Tube 35 02/14/20 11:00 91 12 108/53 (71) 100 02/14/20 10:53 72 12 35 02/14/20 10:30 72 15 92/51 (65) 100 02/14/20 10:00 18 Endotracheal Tube 35 02/14/20 10:00 73 18 96/52 (67) 100 Labs: Laboratory Tests Test 02/14/20 16:15 02/14/20 22:00 02/15/20 04:50 White Blood Count 9.1 K/UL (4.8-10.8) 9.1 K/UL (4.8-10.8) Red Blood Count 3.40 M/UL (4.20-5.40) L 3.64 M/UL (4.20-5.40) L Hemoglobin 10.5 G/DL (12.0-16.0) L 11.3 G/DL (12.0-16.0) L Hematocrit 33.5 % (37.0-47.0) L 35.1 % (37.0-47.0) L Mean Corpuscular Volume 99 FL (80-99) 96 FL (80-99) Mean Corpuscular Hemoglobin 30.8 PG (27.0-31.0) 30.9 PG (27.0-31.0) Mean Corpuscular Hemoglobin Concent 31.2 G/DL (32.0-36.0) L 32.1 G/DL (32.0-36.0) Red Cell Distribution Width 13.2 % (11.6-14.8) 12.4 % (11.6-14.8) Platelet Count 109 K/UL (150-450) L 128 K/UL (150-450) L Mean Platelet Volume 10.9 FL (6.5-10.1) H 10.4 FL (6.5-10.1) H Neutrophils (%) (Auto) 80.0 % (45.0-75.0) H 80.5 % (45.0-75.0) H Lymphocytes (%) (Auto) 12.3 % (20.0-45.0) L 12.0 % (20.0-45.0) L Monocytes (%) (Auto) 6.5 % (1.0-10.0) 6.7 % (1.0-10.0) Eosinophils (%) (Auto) 0.7 % (0.0-3.0) 0.3 % (0.0-3.0) Basophils (%) (Auto) 0.6 % (0.0-2.0) 0.6 % (0.0-2.0) D-Dimer 1.60 mg/L FEU (0.00-0.49) H Sodium Level 144 MMOL/L (136-145) 139 MMOL/L (136-145) Potassium Level 3.4 MMOL/L (3.5-5.1) L 3.4 MMOL/L (3.5-5.1) L Chloride Level 110 MMOL/L (98-107) H 109 MMOL/L (98-107) H Carbon Dioxide Level 22 MMOL/L (21-32) 22 MMOL/L (21-32) Anion Gap 12 mmol/L (5-15) 8 mmol/L (5-15) Blood Urea Nitrogen 14 mg/dL (7-18) 12 mg/dL (7-18) Creatinine 0.4 MG/DL (0.55-1.30) L 0.6 MG/DL (0.55-1.30) Estimat Glomerular Filtration Rate > 60 mL/min (>60) > 60 mL/min (>60) Glucose Level 101 MG/DL (74-106) 91 MG/DL (74-106) Lactic Acid Level 0.60 mmol/L (0.4-2.0) Calcium Level 7.0 MG/DL (8.5-10.1) L 8.0 MG/DL (8.5-10.1) L Troponin I 0.388 ng/mL (0.000-0.056) 0.392 ng/mL (0.000-0.056) Vancomycin Level Trough 14.6 ug/mL (5.0-12.0) H Magnesium Level 1.5 MG/DL (1.8-2.4) L Total Bilirubin 0.9 MG/DL (0.2-1.0) Aspartate Amino Transf (AST/SGOT) 66 U/L (15-37) H Alanine Aminotransferase (ALT/SGPT) 64 U/L (12-78) Alkaline Phosphatase 115 U/L (46-116) Total Creatine Kinase 569 U/L (26-308) H Creatine Kinase MB 4.4 NG/ML (0.0-3.6) H Creatine Kinase MB Relative Index 0.7 Pro-B-Type Natriuretic Peptide 2136 pg/mL (0-125) H Total Protein 5.9 G/DL (6.4-8.2) L Albumin 2.4 G/DL (3.4-5.0) L Globulin 3.5 g/dL Albumin/Globulin Ratio 0.7 (1.0-2.7) L Thyroid Stimulating Hormone (TSH) 0.952 uiU/mL (0.358-3.740) Objective: WDWN NAD clear breath sounds bilaterally without rhonchi or wheeze [id number] without MRG NABS nontender no HSM no CCE nonfocal poor LOC intubated Micro: Microbiology Date/Time Source Procedure Growth Status 02/13/20 21:02 Blood Blood Culture - Preliminary NO GROWTH AFTER 24 HOURS Resulted 02/13/20 20:45 Blood Blood Culture - Preliminary NO GROWTH AFTER 24 HOURS Resulted 02/13/20 21:02 Nasopharynx SARS-CoV-2 RdRp Gene Assay - Final Complete 02/13/20 21:02 Urine,Clean Catch Urine Culture - Preliminary NO GROWTH Resulted Juan Snow MD Feb 15, 2020 09:36
[2020-02-15] MEDS: Cefepime HCl 1 GM in D5W 55 ML IVPB SCH ×2 (10:13→20:09)
[2020-02-15] MEDS: SELEXIPAG ORAL SCH ×3 (10:14→18:21)
[2020-02-15] MEDS: carBAMazepine 200mg tab NG SCH ×3 (10:14→18:21)
[2020-02-15] MEDS: Revatio 20mg tab ORAL SCH ×3 (10:14→18:21)
[2020-02-15] MEDS: Aspirin Baby 81mg NG SCH (10:14)
[2020-02-15] MEDS: Eliquis 5mg tablet NGT SCH ×2 (10:14→18:21)
--- NOTE | 2020-02-15 10:30 | Diagnostic Imaging Report ---
Indication: Shortness of breath Technique: One view of the chest Comparison: 02/13/2020 Findings: Previously demonstrated left basilar infiltrate appears improved. There is equivocal hazy right perihilar opacity which may have been present previously if real. The heart size is normal. No new infiltrates. Pleural spaces are clear. Stable satisfactory position of endotracheal tube. Interim placement of orogastric tube, tip coiled in the gastric fundus. Impression: Improved but persistent left basilar infiltrate Questionable hazy right perihilar disease, unchanged Satisfactory orogastric intubation
--- NOTE | 2020-02-15 11:28 | Infectious Diseases Prog Note ---
Assessment/Plan Assessment/Plan antibiotics : vancomycin iv, cefepime A 1. pneumonia 2. respiratory failure 3. neurofibromatosis 4. seizures 5. pulmonary hypertension P 1. continue iv vancomycin, cefepime 2. will follow up cultures Subjective ROS Limited/Unobtainable: Yes Allergies: Coded Allergies: PENICILLINS (Verified Allergy, Severe, 08/07/12) FISH CONTAINING PRODUCTS (Verified Allergy, Unknown, 06/02/18) Uncoded Allergies: seafood (Allergy, Unknown, 06/02/18) Objective Last 24 Hour Vital Signs Date Time Temp Pulse Resp B/P (MAP) Pulse Ox O2 Delivery O2 Flow Rate FiO2 02/15/20 11:00 114 15 126/42 (70) 100 02/15/20 10:45 113 16 141/43 (75) 100 02/15/20 10:32 109 18 30 02/15/20 10:30 111 16 142/49 (80) 100 02/15/20 10:15 109 17 143/53 (83) 100 02/15/20 10:00 110 18 143/63 (89) 100 02/15/20 09:45 110 17 134/58 (83) 100 02/15/20 09:30 109 16 137/63 (87) 100 02/15/20 09:15 109 17 134/53 (80) 100 02/15/20 09:10 107 15 30 02/15/20 09:00 109 16 129/67 (87) 100 02/15/20 08:45 110 17 144/49 (80) 100 02/15/20 08:30 111 16 163/94 (117) 100 02/15/20 08:15 110 17 163/92 (115) 100 02/15/20 08:00 30 02/15/20 08:00 Mechanical Ventilator 02/15/20 08:00 100.1 107 16 154/83 (106) 100 02/15/20 07:45 106 15 156/90 (112) 100 02/15/20 07:30 104 15 147/89 (108) 100 02/15/20 07:21 104 15 30 02/15/20 07:15 102 14 141/75 (97) 100 02/15/20 07:00 103 15 144/78 (100) 100 02/15/20 07:00 15 Mechanical Ventilator 30 02/15/20 06:45 102 16 144/78 (100) 100 8/19/20 06:30 74 20 02/15/20 06:30 103 16 144/81 (102) 100 02/15/20 06:15 104 17 147/78 (101) 100 02/15/20 06:00 16 Mechanical Ventilator 30 02/15/20 06:00 103 16 148/77 (100) 100 02/15/20 05:45 103 17 148/83 (104) 100 02/15/20 05:30 102 16 145/81 (102) 100 02/15/20 05:15 102 16 140/71 (94) 100 02/15/20 05:15 102 16 30 02/15/20 05:00 103 17 141/70 (93) 100 02/15/20 05:00 16 Mechanical Ventilator 30 02/15/20 04:45 103 20 132/65 (87) 100 02/15/20 04:30 99 18 133/73 (93) 100 02/15/20 04:15 101 18 145/82 (103) 100 02/15/20 04:00 99.2 100 19 143/79 (100) 100 02/15/20 04:00 19 Mechanical Ventilator 30 02/15/20 04:00 30 02/15/20 04:00 Mechanical Ventilator 02/15/20 03:45 100 17 145/79 (101) 100 02/15/20 03:45 99 02/15/20 03:30 96 17 143/93 (110) 100 02/15/20 03:26 98 18 30 02/15/20 03:15 93 16 133/79 (97) 100 02/15/20 03:00 93 16 140/79 (99) 100 02/15/20 03:00 17 Mechanical Ventilator 30 02/15/20 02:45 90 15 136/73 (94) 100 02/15/20 02:30 90 15 135/82 (99) 100 02/15/20 02:15 89 14 123/70 (87) 100 02/15/20 02:00 16 Mechanical Ventilator 35 02/15/20 02:00 89 13 126/68 (87) 100 02/15/20 01:45 89 14 120/69 (86) 100 02/15/20 01:30 86 14 124/74 (91) 100 02/15/20 01:15 87 16 124/71 (88) 100 02/15/20 01:07 85 14 35 02/15/20 01:00 88 15 123/75 (91) 100 02/15/20 01:00 17 Mechanical Ventilator 35 02/15/20 00:54 15 Mechanical Ventilator 35 02/15/20 00:45 87 13 127/65 (85) 100 02/15/20 00:30 86 13 122/69 (86) 100 02/15/20 00:15 86 13 122/62 (82) 100 02/15/20 00:00 Mechanical Ventilator 02/15/20 00:00 13 Mechanical Ventilator 35 02/15/20 00:00 35 02/15/20 00:00 98.8 87 14 125/68 (87) 100 02/14/20 23:45 86 14 118/66 (83) 100 02/14/20 23:30 88 14 123/66 (85) 100 02/14/20 23:15 86 02/14/20 23:15 85 13 112/63 (79) 100 02/14/20 23:00 15 Mechanical Ventilator 35 02/14/20 23:00 86 13 114/60 (78) 100 02/14/20 22:45 90 14 131/67 (88) 100 02/14/20 22:41 86 16 35 02/14/20 22:30 86 14 122/64 (83) 100 02/14/20 22:15 87 14 127/67 (87) 100 02/14/20 22:00 91 18 140/72 (94) 100 18 22:00 15 Mechanical Ventilator 35 02/14/20 21:45 88 16 134/65 (88) 100 02/14/20 21:30 86 16 127/60 (82) 100 18 21:19 82 13 35 02/14/20 21:15 86 15 124/66 (85) 100 02/14/20 21:00 15 Mechanical Ventilator 35 02/14/20 21:00 84 14 127/70 (89) 100 02/14/20 20:45 84 16 123/65 (84) 100 02/14/20 20:30 83 14 127/54 (78) 100 18 20:15 84 14 122/58 (79) 100 02/14/20 20:00 15 Mechanical Ventilator 35 02/14/20 20:00 Mechanical Ventilator 02/14/20 20:00 35 02/14/20 20:00 98.3 82 13 119/68 (85) 100 02/14/20 19:45 81 15 118/61 (80) 100 02/14/20 19:30 83 13 118/67 (84) 100 1820 19:30 83 13 35 02/14/20 19:17 80 02/14/20 19:00 81 14 114/64 (81) 100 02/14/20 19:00 14 Endotracheal Tube 35 02/14/20 18:30 99.2 81 13 121/67 (85) 100 02/14/20 18:30 81 13 121/67 (85) 100 02/14/20 18:00 81 12 114/62 (79) 100 02/14/20 18:00 12 Endotracheal Tube 35 02/14/20 17:30 81 13 117/71 (86) 100 02/14/20 17:00 81 13 120/75 (90) 100 02/14/20 17:00 13 Endotracheal Tube 35 02/14/20 16:37 83 13 35 02/14/20 16:30 82 13 117/68 (84) 100 02/14/20 16:00 35 02/14/20 16:00 13 Endotracheal Tube 35 02/14/20 16:00 80 02/14/20 16:00 Mechanical Ventilator 02/14/20 16:00 80 13 97/58 (71) 100 02/14/20 15:30 81 14 101/58 (72) 100 02/14/20 15:00 79 12 35 02/14/20 15:00 13 Endotracheal Tube 35 02/14/20 15:00 79 13 102/51 (68) 100 02/14/20 14:30 80 14 100/58 (72) 100 02/14/20 14:00 76 13 103/54 (70) 02/14/20 14:00 13 Endotracheal Tube 35 02/14/20 13:30 76 12 94/59 (71) 02/14/20 13:00 79 12 92/58 (69) 02/14/20 13:00 12 Endotracheal Tube 35 02/14/20 12:54 76 13 35 02/14/20 12:30 75 12 97/53 (68) 02/14/20 12:20 12 Endotracheal Tube 5.0 35 02/14/20 12:00 Mechanical Ventilator 02/14/20 12:00 12 Endotracheal Tube 35 02/14/20 12:00 97.2 77 12 96/56 (69) 02/14/20 12:00 35 02/14/20 11:30 80 12 95/58 (70) Height (Feet): 5 Height (Inches): 5.00 Weight (Pounds): 115 HEENT: other - intubated Respiratory/Chest: lungs clear Cardiovascular: normal rate, regular rhythm, no gallop/murmur Abdomen: soft, non tender Extremities: no edema Microbiology Date/Time Source Procedure Growth Status 02/13/20 21:02 Blood Blood Culture - Preliminary NO GROWTH AFTER 24 HOURS Resulted 02/13/20 20:45 Blood Blood Culture - Preliminary NO GROWTH AFTER 24 HOURS Resulted 02/13/20 21:02 Nasopharynx SARS-CoV-2 RdRp Gene Assay - Final Complete 02/13/20 21:02 Urine,Clean Catch Urine Culture - Preliminary NO GROWTH Resulted Laboratory Tests Test 02/14/20 16:15 02/14/20 22:00 02/15/20 04:50 White Blood Count 9.1 K/UL (4.8-10.8) 9.1 K/UL (4.8-10.8) Red Blood Count 3.40 M/UL (4.20-5.40) L 3.64 M/UL (4.20-5.40) L Hemoglobin 10.5 G/DL (12.0-16.0) L 11.3 G/DL (12.0-16.0) L Hematocrit 33.5 % (37.0-47.0) L 35.1 % (37.0-47.0) L Mean Corpuscular Volume 99 FL (80-99) 96 FL (80-99) Mean Corpuscular Hemoglobin 30.8 PG (27.0-31.0) 30.9 PG (27.0-31.0) Mean Corpuscular Hemoglobin Concent 31.2 G/DL (32.0-36.0) L 32.1 G/DL (32.0-36.0) Red Cell Distribution Width 13.2 % (11.6-14.8) 12.4 % (11.6-14.8) Platelet Count 109 K/UL (150-450) L 128 K/UL (150-450) L Mean Platelet Volume 10.9 FL (6.5-10.1) H 10.4 FL (6.5-10.1) H Neutrophils (%) (Auto) 80.0 % (45.0-75.0) H 80.5 % (45.0-75.0) H Lymphocytes (%) (Auto) 12.3 % (20.0-45.0) L 12.0 % (20.0-45.0) L Monocytes (%) (Auto) 6.5 % (1.0-10.0) 6.7 % (1.0-10.0) Eosinophils (%) (Auto) 0.7 % (0.0-3.0) 0.3 % (0.0-3.0) Basophils (%) (Auto) 0.6 % (0.0-2.0) 0.6 % (0.0-2.0) D-Dimer 1.60 mg/L FEU (0.00-0.49) H Sodium Level 144 MMOL/L (136-145) 139 MMOL/L (136-145) Potassium Level 3.4 MMOL/L (3.5-5.1) L 3.4 MMOL/L (3.5-5.1) L Chloride Level 110 MMOL/L (98-107) H 109 MMOL/L (98-107) H Carbon Dioxide Level 22 MMOL/L (21-32) 22 MMOL/L (21-32) Anion Gap 12 mmol/L (5-15) 8 mmol/L (5-15) Blood Urea Nitrogen 14 mg/dL (7-18) 12 mg/dL (7-18) Creatinine 0.4 MG/DL (0.55-1.30) L 0.6 MG/DL (0.55-1.30) Estimat Glomerular Filtration Rate > 60 mL/min (>60) > 60 mL/min (>60) Glucose Level 101 MG/DL (74-106) 91 MG/DL (74-106) Lactic Acid Level 0.60 mmol/L (0.4-2.0) Calcium Level 7.0 MG/DL (8.5-10.1) L 8.0 MG/DL (8.5-10.1) L Troponin I 0.388 ng/mL (0.000-0.056) 0.392 ng/mL (0.000-0.056) Vancomycin Level Trough 14.6 ug/mL (5.0-12.0) H Magnesium Level 1.5 MG/DL (1.8-2.4) L Total Bilirubin 0.9 MG/DL (0.2-1.0) Aspartate Amino Transf (AST/SGOT) 66 U/L (15-37) H Alanine Aminotransferase (ALT/SGPT) 64 U/L (12-78) Alkaline Phosphatase 115 U/L (46-116) Total Creatine Kinase 569 U/L (26-308) H Creatine Kinase MB 4.4 NG/ML (0.0-3.6) H Creatine Kinase MB Relative Index 0.7 Pro-B-Type Natriuretic Peptide 2136 pg/mL (0-125) H Total Protein 5.9 G/DL (6.4-8.2) L Albumin 2.4 G/DL (3.4-5.0) L Globulin 3.5 g/dL Albumin/Globulin Ratio 0.7 (1.0-2.7) L Thyroid Stimulating Hormone (TSH) 0.952 uiU/mL (0.358-3.740) Current Medications Medications (Trade) Dose Ordered Sig/Brian Route PRN Reason Start Time Stop Time Status Last Admin Dose Admin Acetaminophen (Tylenol) 650 mg Q4H PRN NG Mild Pain (Pain Scale 1-3) 02/14/20 03:00 03/15/20 02:59 Acetaminophen (Tylenol) 650 mg Q4H PRN NG Temp >100.5 02/14/20 03:00 03/15/20 02:59 Al Hydroxide/Mg Hydroxide (Mylanta) 30 ml Q4H PRN ORAL Dyspepsia 02/14/20 03:00 03/15/20 02:59 Apixaban (Eliquis) 5 mg BID NGT 02/14/20 09:00 05/14/20 08:59 02/15/20 10:14 Aspirin (ASA) 81 mg DAILY NG 02/15/20 09:00 03/31/20 08:59 02/15/20 10:14 Carbamazepine (TEGretol) 200 mg TID NG 02/14/20 09:00 03/15/20 08:59 02/15/20 10:14 Cefepime HCl 1 gm/ Dextrose 55 ml @ 110 mls/hr EVERY 12 HOURS IVPB 02/14/20 11:30 02/21/20 11:29 02/15/20 10:13 Gabapentin (Neurontin) 100 mg THREE TIMES A DAY ORAL 02/14/20 09:00 03/15/20 08:59 02/15/20 10:14 Lansoprazole (Prevacid) 30 mg DAILY NG 02/14/20 09:00 03/15/20 08:59 02/15/20 10:14 Lorazepam (Ativan 2mg/ml 1ml) 1 mg Q4H PRN IV For seizures 02/15/20 09:30 02/22/20 09:29 Magnesium Sulfate 100 ml @ 100 mls/hr Q1H IVPB 02/15/20 10:00 02/15/20 11:59 02/15/20 10:13 Midazolam HCl 50 mg/Sodium Chloride 100 ml @ 0 mls/hr Q24H IV 02/14/20 01:15 02/16/20 01:01 02/15/20 00:54 Patient Own Medication (Patient's Own Med) 1 ea DAILY ORAL 02/14/20 13:00 03/15/20 12:59 Patient Own Medication (Patient's Own Med) 1 ea TID ORAL 02/14/20 13:00 03/15/20 12:59 02/15/20 10:14 Sildenafil Citrate (Revatio) 20 mg TID ORAL 02/14/20 09:00 05/14/20 08:59 02/15/20 10:14 Sodium Chloride 1,000 ml @ 100 mls/hr Q10H IV 02/14/20 04:00 03/15/20 03:59 02/15/20 10:12 Vancomycin HCl (Vanco pharmacy to dose) 1 ea DAILY PRN MISC Per rx protocol 02/14/20 03:00 03/15/20 02:59 Vancomycin HCl 750 mg/Dextrose 275 ml @ 183.333 mls/hr Q8H IVPB 02/14/20 06:00 02/19/20 05:59 02/15/20 05:32 Maci Deleon MD Feb 15, 2020 11:28
[2020-02-15] MEDS: Acetaminophen 650mg/20.3ml NG PRN (14:15)
[2020-02-15] MEDS ORDERED: Tubing IV Secondary IV ONE (16:02)
[2020-02-15] MEDS ORDERED: NS 500ML ONE (16:02)
[2020-02-15] MEDS ORDERED: NS 275ml ONE (16:02)
[2020-02-15] MEDS ORDERED: CARBAMAZEPINE200 M3 ORAL (18:29)
[2020-02-15] MEDS ORDERED: MULTIVITAMINS1 EAC2 ORAL (18:29)
[2020-02-15] MEDS ORDERED: [UNRECOGNIZED DRUG - OTHER] OP (18:29)
[2020-02-15] MEDS ORDERED: REFRESH TEARS15 ML OP (18:29)
--- NOTE | 2020-02-15 23:13 | Cardiology Progress Note ---
Subjective DATE OF SERVICE: Feb 15, 2020 On vent support Sedated Monitor: sinus tachycardia BP parameters remain tenuous Troponin hasn't peaked yet Objective Last 24 Hour Vital Signs Date Time Temp Pulse Resp B/P (MAP) Pulse Ox O2 Delivery O2 Flow Rate FiO2 02/15/20 22:53 86 15 30 02/15/20 22:00 18 Mechanical Ventilator 30 02/15/20 21:06 75 14 30 02/15/20 21:04 85 17 98/55 (69) 100 02/15/20 21:00 85 98/55 02/15/20 21:00 16 Mechanical Ventilator 30 02/15/20 21:00 85 16 100/54 (69) 100 02/15/20 20:45 87 16 108/56 (73) 100 02/15/20 20:30 78 15 108/56 (73) 100 02/15/20 20:15 78 15 97/52 (67) 100 02/15/20 20:00 Mechanical Ventilator 02/15/20 20:00 15 Mechanical Ventilator 30 02/15/20 20:00 98.8 77 14 94/52 (66) 100 02/15/20 20:00 30 02/15/20 19:45 76 15 91/54 (66) 100 02/15/20 19:44 74 02/15/20 19:30 76 15 104/57 (73) 100 02/15/20 19:18 77 16 30 02/15/20 19:15 74 14 91/54 (66) 100 02/15/20 19:00 18 Mechanical Ventilator 30 02/15/20 19:00 73 14 89/51 (64) 100 02/15/20 18:45 73 14 92/52 (65) 100 02/15/20 18:23 74 14 87/48 (61) 100 02/15/20 18:15 75 14 88/49 (62) 100 02/15/20 18:00 18 Mechanical Ventilator 30 02/15/20 18:00 74 13 97/56 (70) 100 02/15/20 17:45 74 12 89/52 (64) 100 02/15/20 17:30 75 13 82/47 (59) 100 02/15/20 17:15 75 15 92/51 (65) 100 02/15/20 17:06 71 14 30 02/15/20 17:00 18 Mechanical Ventilator 30 02/15/20 17:00 75 14 92/54 (67) 100 02/15/20 16:45 76 14 93/54 (67) 100 02/15/20 16:30 77 15 94/49 (64) 100 02/15/20 16:15 77 15 98/52 (67) 100 02/15/20 16:00 30 02/15/20 16:00 Mechanical Ventilator 02/15/20 16:00 100.1 74 18 101/54 (70) 100 02/15/20 16:00 18 Mechanical Ventilator 30 02/15/20 16:00 74 02/15/20 15:55 100.1 02/15/20 15:45 76 15 99/55 (70) 100 02/15/20 15:30 77 16 89/49 (62) 100 02/15/20 15:29 14 Mechanical Ventilator 30 02/15/20 15:15 77 15 84/50 (61) 100 02/15/20 15:14 76 14 30 02/15/20 15:00 18 Mechanical Ventilator 30 02/15/20 15:00 78 15 92/50 (64) 100 02/15/20 14:45 92 16 118/62 (80) 100 02/15/20 14:30 116 23 131/81 (98) 02/15/20 14:13 110 134/69 02/15/20 14:00 100.5 113 23 136/70 (92) 100 02/15/20 14:00 23 Mechanical Ventilator 30 02/15/20 14:00 108 02/15/20 13:30 112 22 134/69 (90) 100 02/15/20 13:00 110 23 138/65 (89) 100 02/15/20 13:00 18 Mechanical Ventilator 30 02/15/20 12:47 98 16 30 02/15/20 12:30 104 15 103/40 (61) 100 02/15/20 12:00 30 02/15/20 12:00 18 Mechanical Ventilator 30 02/15/20 12:00 Mechanical Ventilator 02/15/20 12:00 108 02/15/20 12:00 100.3 108 15 111/49 (69) 100 02/15/20 11:45 109 15 109/38 (61) 100 02/15/20 11:30 111 15 117/44 (68) 100 02/15/20 11:15 111 15 121/35 (63) 100 02/15/20 11:00 114 15 126/42 (70) 100 02/15/20 11:00 18 Mechanical Ventilator 30 02/15/20 10:45 113 16 141/43 (75) 100 02/15/20 10:32 109 18 30 02/15/20 10:30 111 16 142/49 (80) 100 02/15/20 10:15 109 17 143/53 (83) 100 02/15/20 10:00 18 Mechanical Ventilator 30 02/15/20 10:00 110 18 143/63 (89) 100 02/15/20 09:45 110 17 134/58 (83) 100 02/15/20 09:30 109 16 137/63 (87) 100 02/15/20 09:15 109 17 134/53 (80) 100 02/15/20 09:10 107 15 30 02/15/20 09:00 18 Mechanical Ventilator 30 02/15/20 09:00 109 16 129/67 (87) 100 02/15/20 08:45 110 17 144/49 (80) 100 02/15/20 08:30 111 16 163/94 (117) 100 02/15/20 08:15 110 17 163/92 (115) 100 02/15/20 08:00 30 02/15/20 08:00 102 02/15/20 08:00 18 Mechanical Ventilator 30 02/15/20 08:00 Mechanical Ventilator 02/15/20 08:00 100.1 107 16 154/83 (106) 100 02/15/20 07:45 106 15 156/90 (112) 100 02/15/20 07:30 104 15 147/89 (108) 100 02/15/20 07:21 104 15 30 02/15/20 07:15 102 14 141/75 (97) 100 02/15/20 07:00 103 15 144/78 (100) 100 02/15/20 07:00 15 Mechanical Ventilator 30 02/15/20 06:45 102 16 144/78 (100) 100 02/15/20 06:30 74 20 02/15/20 06:30 103 16 144/81 (102) 100 02/15/20 06:15 104 17 147/78 (101) 100 02/15/20 06:00 16 Mechanical Ventilator 30 02/15/20 06:00 103 16 148/77 (100) 100 02/15/20 05:45 103 17 148/83 (104) 100 02/15/20 05:30 102 16 145/81 (102) 100 02/15/20 05:15 102 16 140/71 (94) 100 02/15/20 05:15 102 16 30 02/15/20 05:00 103 17 141/70 (93) 100 02/15/20 05:00 16 Mechanical Ventilator 30 02/15/20 04:45 103 20 132/65 (87) 100 02/15/20 04:30 99 18 133/73 (93) 100 02/15/20 04:15 101 18 145/82 (103) 100 02/15/20 04:00 99.2 100 19 143/79 (100) 100 02/15/20 04:00 19 Mechanical Ventilator 30 02/15/20 04:00 30 02/15/20 04:00 Mechanical Ventilator 02/15/20 03:45 100 17 145/79 (101) 100 02/15/20 03:45 99 02/15/20 03:30 96 17 143/93 (110) 100 02/15/20 03:26 98 18 30 02/15/20 03:15 93 16 133/79 (97) 100 02/15/20 03:00 93 16 140/79 (99) 100 02/15/20 03:00 17 Mechanical Ventilator 30 02/15/20 02:45 90 15 136/73 (94) 100 02/15/20 02:30 90 15 135/82 (99) 100 02/15/20 02:15 89 14 123/70 (87) 100 02/15/20 02:00 16 Mechanical Ventilator 35 02/15/20 02:00 89 13 126/68 (87) 100 02/15/20 01:45 89 14 120/69 (86) 100 02/15/20 01:30 86 14 124/74 (91) 100 02/15/20 01:15 87 16 124/71 (88) 100 02/15/20 01:07 85 14 35 02/15/20 01:00 88 15 123/75 (91) 100 02/15/20 01:00 17 Mechanical Ventilator 35 02/15/20 00:54 15 Mechanical Ventilator 35 8/19/20 00:45 87 13 127/65 (85) 100 02/15/20 00:30 86 13 122/69 (86) 100 02/15/20 00:15 86 13 122/62 (82) 100 02/15/20 00:00 Mechanical Ventilator 02/15/20 00:00 13 Mechanical Ventilator 35 02/15/20 00:00 35 02/15/20 00:00 98.8 87 14 125/68 (87) 100 02/14/20 23:45 86 14 118/66 (83) 100 02/14/20 23:30 88 14 123/66 (85) 100 02/14/20 23:15 86 02/14/20 23:15 85 13 112/63 (79) 100 ROS: no change from my evaluation on 02/14/20 HEENT: Orally intubated RHYTHM: ST LUNGS: bilateral rhonchi CARDIAC: regular rhythm, normal S1 and S2, rapid rate, tachycardia ABDOMEN: normal bowel sounds, non tender, soft EXTREMITIES: non-tender, trace edema Laboratory Tests Test 02/15/20 04:50 02/15/20 20:45 White Blood Count 9.1 K/UL (4.8-10.8) Red Blood Count 3.64 M/UL (4.20-5.40) L Hemoglobin 11.3 G/DL (12.0-16.0) L Hematocrit 35.1 % (37.0-47.0) L Mean Corpuscular Volume 96 FL (80-99) Mean Corpuscular Hemoglobin 30.9 PG (27.0-31.0) Mean Corpuscular Hemoglobin Concent 32.1 G/DL (32.0-36.0) Red Cell Distribution Width 12.4 % (11.6-14.8) Platelet Count 128 K/UL (150-450) L Mean Platelet Volume 10.4 FL (6.5-10.1) H Neutrophils (%) (Auto) 80.5 % (45.0-75.0) H Lymphocytes (%) (Auto) 12.0 % (20.0-45.0) L Monocytes (%) (Auto) 6.7 % (1.0-10.0) Eosinophils (%) (Auto) 0.3 % (0.0-3.0) Basophils (%) (Auto) 0.6 % (0.0-2.0) Sodium Level 139 MMOL/L (136-145) Potassium Level 3.4 MMOL/L (3.5-5.1) L Chloride Level 109 MMOL/L (98-107) H Carbon Dioxide Level 22 MMOL/L (21-32) Anion Gap 8 mmol/L (5-15) Blood Urea Nitrogen 12 mg/dL (7-18) Creatinine 0.6 MG/DL (0.55-1.30) Estimat Glomerular Filtration Rate > 60 mL/min (>60) Glucose Level 91 MG/DL (74-106) Calcium Level 8.0 MG/DL (8.5-10.1) L Magnesium Level 1.5 MG/DL (1.8-2.4) L Total Bilirubin 0.9 MG/DL (0.2-1.0) Aspartate Amino Transf (AST/SGOT) 66 U/L (15-37) H Alanine Aminotransferase (ALT/SGPT) 64 U/L (12-78) Alkaline Phosphatase 115 U/L (46-116) Total Creatine Kinase 569 U/L (26-308) H Creatine Kinase MB 4.4 NG/ML (0.0-3.6) H Creatine Kinase MB Relative Index 0.7 Troponin I 0.392 ng/mL (0.000-0.056) Pro-B-Type Natriuretic Peptide 2136 pg/mL (0-125) H Total Protein 5.9 G/DL (6.4-8.2) L Albumin 2.4 G/DL (3.4-5.0) L Globulin 3.5 g/dL Albumin/Globulin Ratio 0.7 (1.0-2.7) L Thyroid Stimulating Hormone (TSH) 0.952 uiU/mL (0.358-3.740) Vancomycin Level Trough 18.6 ug/mL (5.0-12.0) H Microbiology Date/Time Source Procedure Growth Status 02/13/20 21:02 Blood Blood Culture - Preliminary Resulted 02/13/20 20:45 Blood Blood Culture - Preliminary NO GROWTH AFTER 24 HOURS Resulted 02/13/20 21:02 Nasopharynx SARS-CoV-2 RdRp Gene Assay - Final Complete 02/13/20 21:02 Urine,Clean Catch Urine Culture - Preliminary NO GROWTH Resulted EKG INTERPRETATION: 2D Echo: severe pulm hypertension. Normal LVEF. Mod TR. CHEST XRAY: 02/14 - Left infiltrate better, and new right perihilar infiltrate Assessment/Plan Assessment/Plan Respiratory Failure UTI Sepsis with shock Acute myocardial infarction (NSTE) Neurofibromatosis Hypokalemia Hypomagnesemia Hypovolemia Pulmonary Hypertension Aspiration PNA Vent support anti-plt rx and anticoagulation for now Recheck CXR Beta blockade Maintain IVF Antimicrobials and resp rx Avoid pressors Marcus Main MD Feb 15, 2020 23:13
[2020-02-16] VITALS (54 sets, daily range): BP systolic 87–166; BP diastolic 36–81
[2020-02-16] MEDS: Midazolam for drip 50 MG in NS 90 ML IV SCH (01:49)
[2020-02-16] MEDS: Vancomycin 750mg/D5W 275ml IVPB SCH ×6 (05:04→21:54)
[2020-02-16 05:38] LABS: ALANINE AMINOTRANSFERASE 43 U/L (12-78); ALBUMIN 2.2 G/DL (3.4-5.0); ALBUMIN/GLOBULIN RATIO 0.6 (1.0-2.7); ALKALINE PHOSPHATASE 172 U/L (46-116); ANION GAP 10 mmol/L (5-15); ASPARTATE AMINO TRANSFERASE 51 U/L (15-37); BLOOD UREA NITROGEN 9 mg/dL (7-18); CALCIUM 7.7 MG/DL (8.5-10.1); CARBON DIOXIDE 19 MMOL/L (21-32); CHLORIDE 106 MMOL/L (98-107); CREATININE 0.5 MG/DL (0.55-1.30); POTASSIUM 4.5 MMOL/L (3.5-5.1); SODIUM 135 MMOL/L (136-145)
[2020-02-16] MEDS: Acetaminophen 650mg/20.3ml NG PRN ×2 (05:58→16:16)
--- NOTE | 2020-02-16 08:05 | General Progress Note ---
Assessment/Plan Problem List: (1) Seizure disorder ICD Codes: G40.909 - Epilepsy, unspecified, not intractable,without status epilepticus SNOMED: 960708209 (2) Pulmonary hypertension ICD Codes: I27.20 - Pulmonary hypertension, unspecified SNOMED: 75215763 (3) Respiratory failure ICD Codes: J96.90 - Respiratory failure, unspecified, unspecified whether with hypoxia or hypercapnia SNOMED: 737955186 Qualifiers: Qualified Codes: J96.01 - Acute respiratory failure with hypoxia (4) Severe sepsis ICD Codes: A41.9 - Sepsis, unspecified organism; R65.20 - Severe sepsis without septic shock SNOMED: 95639369 (5) NSTEMI (non-ST elevated myocardial infarction) ICD Codes: I21.4 - Non-ST elevation (NSTEMI) myocardial infarction SNOMED: 39304193 (6) Fever ICD Codes: R50.9 - Fever, unspecified SNOMED: 563009606 (7) Dyspnea ICD Codes: R06.00 - Dyspnea, unspecified SNOMED: 260561946 Status: stable, not improved Assessment/Plan: cont vent support wean per pulm wean sedation sz rx Neuro eval iv abx per ID follow up cultures monitor labs replace lytes as needed dvt/stress ulcer prophylaxis tube feeds turn q2 Subjective ROS Limited/Unobtainable: Yes Constitutional: Reports: malaise, weakness HEENT: Reports: no symptoms Cardiovascular: Reports: no symptoms Respiratory: Reports: shortness of breath Gastrointestinal/Abdominal: Reports: difficulty swallowing Genitourinary: Reports: no symptoms Neurologic/Psychiatric: Reports: seizure Endocrine: Reports: no symptoms Hematologic/Lymphatic: Reports: no symptoms Allergies: Coded Allergies: PENICILLINS (Verified Allergy, Severe, 08/07/12) FISH CONTAINING PRODUCTS (Verified Allergy, Unknown, 06/02/18) Uncoded Allergies: seafood (Allergy, Unknown, 06/02/18) All Systems: reviewed and negative except above Subjective no events. stable on the vent. fio2 down to 30%. no secretions. tolerating feeds. no szs. remains sedated. blood cultures with gram positive rods. Objective Last 24 Hour Vital Signs Date Time Temp Pulse Resp B/P (MAP) Pulse Ox O2 Delivery O2 Flow Rate FiO2 02/16/20 07:15 118 16 97/52 (67) 100 02/16/20 07:08 107 14 30 02/16/20 07:00 121 16 114/53 (73) 100 02/16/20 07:00 17 Mechanical Ventilator 30 02/16/20 06:45 122 16 127/50 (75) 100 02/16/20 06:38 100.0 02/16/20 06:30 121 16 02/16/20 06:30 121 17 129/67 (87) 100 02/16/20 06:15 120 18 129/67 (87) 100 02/16/20 06:00 17 Mechanical Ventilator 30 02/16/20 06:00 121 17 133/58 (83) 100 02/16/20 05:45 121 17 138/58 (84) 100 02/16/20 05:30 101.5 122 16 136/69 (91) 100 02/16/20 05:15 115 25 129/54 (79) 100 02/16/20 05:13 94 16 30 02/16/20 05:00 112 17 127/64 (85) 100 02/16/20 05:00 17 Mechanical Ventilator 02/16/20 04:45 111 17 133/68 (89) 100 02/16/20 04:30 110 17 126/72 (90) 100 02/16/20 04:15 107 16 116/68 (84) 100 02/16/20 04:00 100.5 108 17 111/65 (80) 100 02/16/20 04:00 17 Mechanical Ventilator 02/16/20 04:00 30 02/16/20 04:00 Mechanical Ventilator 02/16/20 03:45 108 17 116/67 (83) 100 02/16/20 03:30 106 17 114/64 (81) 100 02/16/20 03:25 106 02/16/20 03:16 100 18 30 02/16/20 03:15 106 17 114/39 (64) 100 02/16/20 03:00 108 18 125/67 (86) 100 02/16/20 03:00 17 Mechanical Ventilator 02/16/20 02:45 109 18 121/55 (77) 100 02/16/20 02:30 111 18 117/61 (79) 100 02/16/20 02:15 110 17 116/63 (80) 100 02/16/20 02:00 18 Mechanical Ventilator 30 02/16/20 02:00 108 17 120/63 (82) 100 02/16/20 01:49 17 Mechanical Ventilator 30 02/16/20 01:45 108 18 118/67 (84) 100 02/16/20 01:30 106 18 121/69 (86) 100 02/16/20 01:15 104 16 121/63 (82) 100 02/16/20 01:15 17 30 02/16/20 01:00 17 Mechanical Ventilator 30 02/16/20 01:00 105 20 125/60 (81) 100 02/16/20 00:45 104 20 116/66 (83) 100 02/16/20 00:34 104 22 30 02/16/20 00:30 104 20 117/44 (68) 100 02/16/20 00:15 99 18 116/67 (83) 100 02/16/20 00:00 30 02/16/20 00:00 99.4 97 18 117/62 (80) 100 02/16/20 00:00 Mechanical Ventilator 02/16/20 00:00 17 Mechanical Ventilator 30 02/15/20 23:45 95 18 106/59 (75) 100 02/15/20 23:32 93 02/15/20 23:30 93 17 105/58 (74) 100 02/15/20 23:15 93 19 109/59 (76) 100 02/15/20 23:00 17 Mechanical Ventilator 30 02/15/20 23:00 92 17 99/54 (69) 100 02/15/20 22:53 86 15 30 02/15/20 22:45 91 18 100/57 (71) 100 02/15/20 22:30 91 18 108/57 (74) 100 02/15/20 22:15 89 17 101/59 (73) 100 02/15/20 22:00 18 Mechanical Ventilator 30 02/15/20 22:00 90 18 99/52 (68) 100 02/15/20 21:45 90 18 100/57 (71) 100 02/15/20 21:30 86 16 105/57 (73) 02/15/20 21:15 86 17 100/55 (70) 100 02/15/20 21:06 75 14 30 02/15/20 21:04 85 17 98/55 (69) 100 02/15/20 21:00 85 98/55 02/15/20 21:00 16 Mechanical Ventilator 30 02/15/20 21:00 85 16 100/54 (69) 100 02/15/20 20:45 87 16 108/56 (73) 100 02/15/20 20:30 78 15 108/56 (73) 100 20 20:15 78 15 97/52 (67) 100 20 20:00 Mechanical Ventilator 02/15/20 20:00 15 Mechanical Ventilator 30 02/15/20 20:00 98.8 77 14 94/52 (66) 100 02/15/20 20:00 30 02/15/20 19:45 76 15 91/54 (66) 100 02/15/20 19:44 74 02/15/20 19:30 76 15 104/57 (73) 100 02/15/20 19:18 77 16 30 02/15/20 19:15 74 14 91/54 (66) 100 02/15/20 19:00 18 Mechanical Ventilator 02/15/20 19:00 73 14 89/51 (64) 100 02/15/20 18:45 73 14 92/52 (65) 100 02/15/20 18:23 74 14 87/48 (61) 100 02/15/20 18:15 75 14 88/49 (62) 100 02/15/20 18:00 18 Mechanical Ventilator 02/15/20 18:00 74 13 97/56 (70) 100 02/15/20 17:45 74 12 89/52 (64) 100 02/15/20 17:30 75 13 82/47 (59) 100 02/15/20 17:15 75 15 92/51 (65) 100 02/15/20 17:06 71 14 30 02/15/20 17:00 18 Mechanical Ventilator 30 02/15/20 17:00 75 14 92/54 (67) 100 02/15/20 16:45 76 14 93/54 (67) 100 02/15/20 16:30 77 15 94/49 (64) 100 02/15/20 16:15 77 15 98/52 (67) 100 02/15/20 16:00 30 02/15/20 16:00 Mechanical Ventilator 02/15/20 16:00 100.1 74 18 101/54 (70) 100 02/15/20 16:00 18 Mechanical Ventilator 30 02/15/20 16:00 74 02/15/20 15:45 76 15 99/55 (70) 100 02/15/20 15:30 77 16 89/49 (62) 100 02/15/20 15:29 14 Mechanical Ventilator 30 02/15/20 15:15 77 15 84/50 (61) 100 02/15/20 15:14 76 14 30 02/15/20 15:00 18 Mechanical Ventilator 30 02/15/20 15:00 78 15 92/50 (64) 100 02/15/20 14:45 92 16 118/62 (80) 100 02/15/20 14:30 116 23 131/81 (98) 02/15/20 14:13 110 134/69 02/15/20 14:00 100.5 113 23 136/70 (92) 100 02/15/20 14:00 23 Mechanical Ventilator 30 02/15/20 14:00 108 02/15/20 13:30 112 22 134/69 (90) 100 02/15/20 13:00 110 23 138/65 (89) 100 02/15/20 13:00 18 Mechanical Ventilator 30 02/15/20 12:47 98 16 30 02/15/20 12:30 104 15 103/40 (61) 100 02/15/20 12:00 30 02/15/20 12:00 18 Mechanical Ventilator 02/15/20 12:00 Mechanical Ventilator 02/15/20 12:00 108 02/15/20 12:00 100.3 108 15 111/49 (69) 100 02/15/20 11:45 109 15 109/38 (61) 100 02/15/20 11:30 111 15 117/44 (68) 100 02/15/20 11:15 111 15 121/35 (63) 100 02/15/20 11:00 114 15 126/42 (70) 100 02/15/20 11:00 18 Mechanical Ventilator 30 02/15/20 10:45 113 16 141/43 (75) 100 02/15/20 10:32 109 18 30 02/15/20 10:30 111 16 142/49 (80) 100 02/15/20 10:15 109 17 143/53 (83) 100 02/15/20 10:00 18 Mechanical Ventilator 30 02/15/20 10:00 110 18 143/63 (89) 100 02/15/20 09:45 110 17 134/58 (83) 100 02/15/20 09:30 109 16 137/63 (87) 100 02/15/20 09:15 109 17 134/53 (80) 100 02/15/20 09:10 107 15 30 02/15/20 09:00 18 Mechanical Ventilator 30 02/15/20 09:00 109 16 129/67 (87) 100 02/15/20 08:45 110 17 144/49 (80) 100 02/15/20 08:30 111 16 163/94 (117) 100 02/15/20 08:15 110 17 163/92 (115) 100 Intake and Output 02/15/20 02/16/20 19:00 07:00 Intake Total 1966.333 ml 1948.1332 ml Output Total 490 ml 955 ml Balance 1476.333 ml 993.1332 ml Free Water 100 ml IV Total 1806.333 ml 1608.1332 ml Tube Feeding 130 ml 240 ml Other 30 ml Output Urine Total 490 ml 955 ml Laboratory Tests 02/15/20 20:45: Vancomycin Level Trough 18.6H 02/16/20 03:00: Sodium Level 135L, Potassium Level 4.5, Chloride Level 106, Carbon Dioxide Level 19L, Anion Gap 10, Blood Urea Nitrogen 9, Creatinine 0.5L, Estimat Glomerular Filtration Rate > 60, Glucose Level 125H, Calcium Level 7.7L, Magnesium Level 1.8, Total Bilirubin 1.0, Aspartate Amino Transf (AST/SGOT) 51H , Alanine Aminotransferase (ALT/SGPT) 43, Alkaline Phosphatase 172H, Troponin I 0.246H, Pro-B-Type Natriuretic Peptide 2571H, Total Protein 6.1L, Albumin 2.2L, Globulin 3.9, Albumin/Globulin Ratio 0.6L Height (Feet): 5 Height (Inches): 5.00 Weight (Pounds): 115 Objective General Appearance: WD/WN, confused EENT: PERRL/EOMI, normal ENT inspection Neck: non-tender, normal alignment Cardiovascular: normal peripheral pulses, normal rate Respiratory/Chest: chest wall non-tender, lungs clear, normal breath sounds Abdomen: normal bowel sounds, non tender Edema: no edema noted Arm (L), no edema noted Arm (R) Neurologic: disoriented, unresponsive Skin: normal pigmentation Lymphatic: normal anterior cervical (L), normal anterior cervical (R) Liborio Dugan MD Feb 16, 2020 08:05
--- NOTE | 2020-02-16 08:23 | Critical Care Progress Note ---
Assessment/Plan Assessment/Plan respiratory failure pneumonia improved pulmonary hypertension elevated troponin possible NSTEMI paraplegia hypoxemia seizure history brain masses, chronic moderate PCM PLAN care noted IV antibiotics noted and cultures reviewed respiratory care and nursing care noted Ventilatory support as is - wean once vitals better sedation as needed monitor acid base and adjust supportive care suction as needed no wean for today await improvement in heart rate titrate seizure meds- in good range oxygen therapy prognosis guarded medications/laboratory data/nursing notes/ICU care reviewed in detail note reviewed and edited care discussed with RN and RT ICU time spent >40 minutes Critical Care - Subjective Interval Events: still tachycardic on vent imaging better ROS Limited/Unobtainable: Yes Condition: critical EKG Rhythm: Sinus Tachycardia Residuals: minimal Tube Feeding Tolerated: yes I&O: Intake and Output 02/15/20 02/16/20 19:00 07:00 Intake Total 1966.333 ml 1948.1332 ml Output Total 490 ml 955 ml Balance 1476.333 ml 993.1332 ml Free Water 100 ml IV Total 1806.333 ml 1608.1332 ml Tube Feeding 130 ml 240 ml Other 30 ml Output Urine Total 490 ml 955 ml Critical Care - Objective ET-Tube: 7.0 ET Position: 23 Last 24 Hour Vital Signs Date Time Temp Pulse Resp B/P (MAP) Pulse Ox O2 Delivery O2 Flow Rate FiO2 02/16/20 07:15 118 16 97/52 (67) 100 02/16/20 07:08 107 14 30 02/16/20 07:00 121 16 114/53 (73) 100 02/16/20 07:00 17 Mechanical Ventilator 30 02/16/20 06:45 122 16 127/50 (75) 100 02/16/20 06:38 100.0 02/16/20 06:30 121 16 02/16/20 06:30 121 17 129/67 (87) 100 02/16/20 06:15 120 18 129/67 (87) 100 02/16/20 06:00 17 Mechanical Ventilator 30 02/16/20 06:00 121 17 133/58 (83) 100 02/16/20 05:45 121 17 138/58 (84) 100 02/16/20 05:30 101.5 122 16 136/69 (91) 100 02/16/20 05:15 115 25 129/54 (79) 100 02/16/20 05:13 94 16 30 02/16/20 05:00 112 17 127/64 (85) 100 02/16/20 05:00 17 Mechanical Ventilator 30 02/16/20 04:45 111 17 133/68 (89) 100 02/16/20 04:30 110 17 126/72 (90) 100 02/16/20 04:15 107 16 116/68 (84) 100 02/16/20 04:00 100.5 108 17 111/65 (80) 100 02/16/20 04:00 17 Mechanical Ventilator 30 02/16/20 04:00 30 02/16/20 04:00 Mechanical Ventilator 02/16/20 03:45 108 17 116/67 (83) 100 02/16/20 03:30 106 17 114/64 (81) 100 02/16/20 03:25 106 02/16/20 03:16 100 18 30 02/16/20 03:15 106 17 114/39 (64) 100 02/16/20 03:00 108 18 125/67 (86) 100 02/16/20 03:00 17 Mechanical Ventilator 30 02/16/20 02:45 109 18 121/55 (77) 100 02/16/20 02:30 111 18 117/61 (79) 100 02/16/20 02:15 110 17 116/63 (80) 100 02/16/20 02:00 18 Mechanical Ventilator 02/16/20 02:00 108 17 120/63 (82) 100 02/16/20 01:49 17 Mechanical Ventilator 30 02/16/20 01:45 108 18 118/67 (84) 100 02/16/20 01:30 106 18 121/69 (86) 100 02/16/20 01:15 104 16 121/63 (82) 100 02/16/20 01:15 17 30 02/16/20 01:00 17 Mechanical Ventilator 30 02/16/20 01:00 105 20 125/60 (81) 100 02/16/20 00:45 104 20 116/66 (83) 100 02/16/20 00:34 104 22 30 02/16/20 00:30 104 20 117/44 (68) 100 02/16/20 00:15 99 18 116/67 (83) 100 02/16/20 00:00 30 02/16/20 00:00 99.4 97 18 117/62 (80) 100 02/16/20 00:00 Mechanical Ventilator 02/16/20 00:00 17 Mechanical Ventilator 30 02/15/20 23:45 95 18 106/59 (75) 100 02/15/20 23:32 93 02/15/20 23:30 93 17 105/58 (74) 100 02/15/20 23:15 93 19 109/59 (76) 100 02/15/20 23:00 17 Mechanical Ventilator 30 02/15/20 23:00 92 17 99/54 (69) 100 02/15/20 22:53 86 15 30 02/15/20 22:45 91 18 100/57 (71) 100 02/15/20 22:30 91 18 108/57 (74) 100 02/15/20 22:15 89 17 101/59 (73) 100 02/15/20 22:00 18 Mechanical Ventilator 30 02/15/20 22:00 90 18 99/52 (68) 100 02/15/20 21:45 90 18 100/57 (71) 100 02/15/20 21:30 86 16 105/57 (73) 02/15/20 21:15 86 17 100/55 (70) 100 02/15/20 21:06 75 14 30 02/15/20 21:04 85 17 98/55 (69) 100 02/15/20 21:00 85 98/55 02/15/20 21:00 16 Mechanical Ventilator 30 02/15/20 21:00 85 16 100/54 (69) 100 02/15/20 20:45 87 16 108/56 (73) 100 02/15/20 20:30 78 15 108/56 (73) 100 02/15/20 20:15 78 15 97/52 (67) 100 02/15/20 20:00 Mechanical Ventilator 02/15/20 20:00 15 Mechanical Ventilator 30 02/15/20 20:00 98.8 77 14 94/52 (66) 100 02/15/20 20:00 30 02/15/20 19:45 76 15 91/54 (66) 100 02/15/20 19:44 74 02/15/20 19:30 76 15 104/57 (73) 100 02/15/20 19:18 77 16 30 02/15/20 19:15 74 14 91/54 (66) 100 02/15/20 19:00 18 Mechanical Ventilator 30 02/15/20 19:00 73 14 89/51 (64) 100 02/15/20 18:45 73 14 92/52 (65) 100 02/15/20 18:23 74 14 87/48 (61) 100 02/15/20 18:15 75 14 88/49 (62) 100 02/15/20 18:00 18 Mechanical Ventilator 30 02/15/20 18:00 74 13 97/56 (70) 100 02/15/20 17:45 74 12 89/52 (64) 100 02/15/20 17:30 75 13 82/47 (59) 100 02/15/20 17:15 75 15 92/51 (65) 100 02/15/20 17:06 71 14 30 02/15/20 17:00 18 Mechanical Ventilator 02/15/20 17:00 75 14 92/54 (67) 100 02/15/20 16:45 76 14 93/54 (67) 100 02/15/20 16:30 77 15 94/49 (64) 100 02/15/20 16:15 77 15 98/52 (67) 100 02/15/20 16:00 30 02/15/20 16:00 Mechanical Ventilator 02/15/20 16:00 100.1 74 18 101/54 (70) 100 02/15/20 16:00 18 Mechanical Ventilator 02/15/20 16:00 74 02/15/20 15:45 76 15 99/55 (70) 100 02/15/20 15:30 77 16 89/49 (62) 100 02/15/20 15:29 14 Mechanical Ventilator 30 02/15/20 15:15 77 15 84/50 (61) 100 02/15/20 15:14 76 14 30 02/15/20 15:00 18 Mechanical Ventilator 30 02/15/20 15:00 78 15 92/50 (64) 100 02/15/20 14:45 92 16 118/62 (80) 100 02/15/20 14:30 116 23 131/81 (98) 02/15/20 14:13 110 134/69 02/15/20 14:00 100.5 113 23 136/70 (92) 100 02/15/20 14:00 23 Mechanical Ventilator 30 02/15/20 14:00 108 02/15/20 13:30 112 22 134/69 (90) 100 02/15/20 13:00 110 23 138/65 (89) 100 02/15/20 13:00 18 Mechanical Ventilator 30 02/15/20 12:47 98 16 30 02/15/20 12:30 104 15 103/40 (61) 100 02/15/20 12:00 30 02/15/20 12:00 18 Mechanical Ventilator 30 02/15/20 12:00 Mechanical Ventilator 02/15/20 12:00 108 02/15/20 12:00 100.3 108 15 111/49 (69) 100 02/15/20 11:45 109 15 109/38 (61) 100 02/15/20 11:30 111 15 117/44 (68) 100 02/15/20 11:15 111 15 121/35 (63) 100 02/15/20 11:00 114 15 126/42 (70) 100 02/15/20 11:00 18 Mechanical Ventilator 02/15/20 10:45 113 16 141/43 (75) 100 02/15/20 10:32 109 18 30 02/15/20 10:30 111 16 142/49 (80) 100 02/15/20 10:15 109 17 143/53 (83) 100 02/15/20 10:00 18 Mechanical Ventilator 02/15/20 10:00 110 18 143/63 (89) 100 02/15/20 09:45 110 17 134/58 (83) 100 02/15/20 09:30 109 16 137/63 (87) 100 02/15/20 09:15 109 17 134/53 (80) 100 02/15/20 09:10 107 15 30 02/15/20 09:00 18 Mechanical Ventilator 30 02/15/20 09:00 109 16 129/67 (87) 100 02/15/20 08:45 110 17 144/49 (80) 100 02/15/20 08:30 111 16 163/94 (117) 100 Labs: Labs Test 02/13/20 20:46 02/13/20 21:02 02/13/20 23:59 02/14/20 00:46 Arterial Blood pH 7.436 (7.350-7.450) Arterial Blood Partial Pressure CO2 34.9 mmHg (35.0-45.0) Arterial Blood Partial Pressure O2 70.9 mmHg (75.0-100.0) Arterial Blood HCO3 23.0 mmol/L (22.0-26.0) Arterial Blood Oxygen Saturation 94.3 % (95-100) Arterial Blood Base Excess -0.9 (-2-2) Jax Test Positive White Blood Count 10.0 K/UL (4.8-10.8) Red Blood Count 4.06 M/UL (4.20-5.40) Hemoglobin 12.8 G/DL (12.0-16.0) Hematocrit 40.2 % (37.0-47.0) Mean Corpuscular Volume 99 FL (80-99) Mean Corpuscular Hemoglobin 31.6 PG (27.0-31.0) Mean Corpuscular Hemoglobin Concent 31.9 G/DL (32.0-36.0) Red Cell Distribution Width 13.2 % (11.6-14.8) Platelet Count 157 K/UL (150-450) Mean Platelet Volume 10.1 FL (6.5-10.1) Neutrophils (%) (Auto) 73.7 % (45.0-75.0) Lymphocytes (%) (Auto) 20.2 % (20.0-45.0) Monocytes (%) (Auto) 5.2 % (1.0-10.0) Eosinophils (%) (Auto) 0.2 % (0.0-3.0) Basophils (%) (Auto) 0.8 % (0.0-2.0) Prothrombin Time 13.1 SEC (9.30-11.50) Prothromb Time International Ratio 1.2 (0.9-1.1) Activated Partial Thromboplast Time 27 SEC (23-33) Urine Color Yellow Urine Appearance Cloudy Urine pH 6.5 (4.5-8.0) Urine Specific [place] 1.015 (1.005-1.035) Urine Protein 3+ (NEGATIVE) Urine Glucose (UA) Negative (NEGATIVE) Urine Ketones Negative (NEGATIVE) Urine Blood 1+ (NEGATIVE) Urine Nitrite Positive (NEGATIVE) Urine Bilirubin Negative (NEGATIVE) Urine Urobilinogen Normal MG/DL (0.0-1.0) Urine Leukocyte Esterase 1+ (NEGATIVE) Urine RBC 2-4 /HPF (0 - 2) Urine WBC 15-20 /HPF (0 - 2) Urine Squamous Epithelial Cells Moderate /LPF (NONE/OCC) Urine Amorphous Sediment Moderate /LPF (NONE) Urine Bacteria Many /HPF (NONE) Sodium Level 146 MMOL/L (136-145) Potassium Level 4.4 MMOL/L (3.5-5.1) Chloride Level 107 MMOL/L (98-107) Carbon Dioxide Level 29 MMOL/L (21-32) Anion Gap 10 mmol/L (5-15) Blood Urea Nitrogen 18 mg/dL (7-18) Creatinine 0.6 MG/DL (0.55-1.30) Estimat Glomerular Filtration Rate > 60 mL/min (>60) Glucose Level 168 MG/DL (74-106) Lactic Acid Level 2.80 mmol/L (0.4-2.0) 2.70 mmol/L (0.66-2.22) Calcium Level 8.4 MG/DL (8.5-10.1) Magnesium Level 1.8 MG/DL (1.8-2.4) Total Bilirubin 0.4 MG/DL (0.2-1.0) Aspartate Amino Transf (AST/SGOT) 48 U/L (15-37) Alanine Aminotransferase (ALT/SGPT) 43 U/L (12-78) Alkaline Phosphatase 141 U/L (46-116) Total Creatine Kinase 268 U/L (26-308) Troponin I 0.143 ng/mL (0.000-0.056) Pro-B-Type Natriuretic Peptide 3045 pg/mL (0-125) Total Protein 7.7 G/DL (6.4-8.2) Albumin 3.4 G/DL (3.4-5.0) Globulin 4.3 g/dL Albumin/Globulin Ratio 0.8 (1.0-2.7) Lipase 79 U/L (73-393) Carbamazepine (Tegretol) Level 10.5 ug/mL (4.0-12.0) Test 02/14/20 02:05 02/14/20 08:36 02/14/20 16:15 02/14/20 22:00 Ferritin 111 NG/ML (8-388) Lactate Dehydrogenase 299 U/L (81-234) C-Reactive Protein, Quantitative 3.9 mg/dL (0.00-0.90) Arterial Blood pH 7.461 (7.350-7.450) Arterial Blood Partial Pressure CO2 24.7 mmHg (35.0-45.0) Arterial Blood Partial Pressure O2 144.0 mmHg (75.0-100.0) Arterial Blood HCO3 17.2 mmol/L (22.0-26.0) Arterial Blood Oxygen Saturation 98.5 % (95-100) Arterial Blood Base Excess -5.3 (-2-2) Jax Test Positive White Blood Count 9.1 K/UL (4.8-10.8) Red Blood Count 3.40 M/UL (4.20-5.40) Hemoglobin 10.5 G/DL (12.0-16.0) Hematocrit 33.5 % (37.0-47.0) Mean Corpuscular Volume 99 FL (80-99) Mean Corpuscular Hemoglobin 30.8 PG (27.0-31.0) Mean Corpuscular Hemoglobin Concent 31.2 G/DL (32.0-36.0) Red Cell Distribution Width 13.2 % (11.6-14.8) Platelet Count 109 K/UL (150-450) Mean Platelet Volume 10.9 FL (6.5-10.1) Neutrophils (%) (Auto) 80.0 % (45.0-75.0) Lymphocytes (%) (Auto) 12.3 % (20.0-45.0) Monocytes (%) (Auto) 6.5 % (1.0-10.0) Eosinophils (%) (Auto) 0.7 % (0.0-3.0) Basophils (%) (Auto) 0.6 % (0.0-2.0) D-Dimer 1.60 mg/L FEU (0.00-0.49) Sodium Level 144 MMOL/L (136-145) Potassium Level 3.4 MMOL/L (3.5-5.1) Chloride Level 110 MMOL/L (98-107) Carbon Dioxide Level 22 MMOL/L (21-32) Anion Gap 12 mmol/L (5-15) Blood Urea Nitrogen 14 mg/dL (7-18) Creatinine 0.4 MG/DL (0.55-1.30) Estimat Glomerular Filtration Rate > 60 mL/min (>60) Glucose Level 101 MG/DL (74-106) Lactic Acid Level 0.60 mmol/L (0.4-2.0) Calcium Level 7.0 MG/DL (8.5-10.1) Troponin I 0.388 ng/mL (0.000-0.056) Vancomycin Level Trough 14.6 ug/mL (5.0-12.0) Test 02/15/20 04:50 02/15/20 20:45 02/16/20 03:00 White Blood Count 9.1 K/UL (4.8-10.8) Red Blood Count 3.64 M/UL (4.20-5.40) Hemoglobin 11.3 G/DL (12.0-16.0) Hematocrit 35.1 % (37.0-47.0) Mean Corpuscular Volume 96 FL (80-99) Mean Corpuscular Hemoglobin 30.9 PG (27.0-31.0) Mean Corpuscular Hemoglobin Concent 32.1 G/DL (32.0-36.0) Red Cell Distribution Width 12.4 % (11.6-14.8) Platelet Count 128 K/UL (150-450) Mean Platelet Volume 10.4 FL (6.5-10.1) Neutrophils (%) (Auto) 80.5 % (45.0-75.0) Lymphocytes (%) (Auto) 12.0 % (20.0-45.0) Monocytes (%) (Auto) 6.7 % (1.0-10.0) Eosinophils (%) (Auto) 0.3 % (0.0-3.0) Basophils (%) (Auto) 0.6 % (0.0-2.0) Sodium Level 139 MMOL/L (136-145) 135 MMOL/L (136-145) Potassium Level 3.4 MMOL/L (3.5-5.1) 4.5 MMOL/L (3.5-5.1) Chloride Level 109 MMOL/L (98-107) 106 MMOL/L (98-107) Carbon Dioxide Level 22 MMOL/L (21-32) 19 MMOL/L (21-32) Anion Gap 8 mmol/L (5-15) 10 mmol/L (5-15) Blood Urea Nitrogen 12 mg/dL (7-18) 9 mg/dL (7-18) Creatinine 0.6 MG/DL (0.55-1.30) 0.5 MG/DL (0.55-1.30) Estimat Glomerular Filtration Rate > 60 mL/min (>60) > 60 mL/min (>60) Glucose Level 91 MG/DL (74-106) 125 MG/DL (74-106) Calcium Level 8.0 MG/DL (8.5-10.1) 7.7 MG/DL (8.5-10.1) Magnesium Level 1.5 MG/DL (1.8-2.4) 1.8 MG/DL (1.8-2.4) Total Bilirubin 0.9 MG/DL (0.2-1.0) 1.0 MG/DL (0.2-1.0) Aspartate Amino Transf (AST/SGOT) 66 U/L (15-37) 51 U/L (15-37) Alanine Aminotransferase (ALT/SGPT) 64 U/L (12-78) 43 U/L (12-78) Alkaline Phosphatase 115 U/L (46-116) 172 U/L (46-116) Total Creatine Kinase 569 U/L (26-308) Creatine Kinase MB 4.4 NG/ML (0.0-3.6) Creatine Kinase MB Relative Index 0.7 Troponin I 0.392 ng/mL (0.000-0.056) 0.246 ng/mL (0.000-0.056) Pro-B-Type Natriuretic Peptide 2136 pg/mL (0-125) 2571 pg/mL (0-125) Total Protein 5.9 G/DL (6.4-8.2) 6.1 G/DL (6.4-8.2) Albumin 2.4 G/DL (3.4-5.0) 2.2 G/DL (3.4-5.0) Globulin 3.5 g/dL 3.9 g/dL Albumin/Globulin Ratio 0.7 (1.0-2.7) 0.6 (1.0-2.7) Thyroid Stimulating Hormone (TSH) 0.952 uiU/mL (0.358-3.740) Vancomycin Level Trough 18.6 ug/mL (5.0-12.0) Objective: WDWN NAD clear breath sounds bilaterally without rhonchi or wheeze [id number] without MRG NABS nontender no HSM no CCE nonfocal poor LOC intubated Micro: Microbiology Date/Time Source Procedure Growth Status 02/13/20 21:02 Blood Blood Culture - Preliminary Resulted 02/13/20 20:45 Blood Blood Culture - Preliminary NO GROWTH AFTER 48 HOURS Resulted 02/16/20 03:00 Nasopharynx SARS-CoV-2 RdRp Gene Assay - Final Complete 02/13/20 21:02 Nasopharynx SARS-CoV-2 RdRp Gene Assay - Final Complete 02/13/20 21:02 Urine,Clean Catch Urine Culture - Preliminary Mixed Gram Positive Organism Resulted Juan Snow MD Feb 16, 2020 08:23
[2020-02-16] MEDS: Aspirin Baby 81mg NG SCH (09:00)
[2020-02-16] MEDS: Cefepime HCl 1 GM in D5W 55 ML IVPB SCH ×2 (09:00→20:14)
[2020-02-16] MEDS: Eliquis 5mg tablet NGT SCH ×2 (09:00→18:13)
[2020-02-16] MEDS: carBAMazepine 200mg tab NG SCH ×3 (09:00→18:13)
[2020-02-16] MEDS: Revatio 20mg tab ORAL SCH ×3 (09:00→18:13)
[2020-02-16] MEDS: SELEXIPAG ORAL SCH ×3 (09:01→18:12)
[2020-02-16] MEDS: OPSUMIT 10 MG ORAL SCH (09:01)
--- NOTE | 2020-02-16 09:11 | Infectious Diseases Prog Note ---
Assessment/Plan Assessment/Plan A 1. pneumonia COVID19 X2: negative 2. Hypoxic respiratory failure 3. neurofibromatosis 4. seizures 5. pulmonary hypertension 6. Sepsis 7. Non ST elevation LA P 1. continue iv vancomycin, cefepime 2. Sputum culture Subjective ROS Limited/Unobtainable: Yes Constitutional: Reports: fever, other - Xf=661.5 Allergies: Coded Allergies: PENICILLINS (Verified Allergy, Severe, 08/07/12) FISH CONTAINING PRODUCTS (Verified Allergy, Unknown, 06/02/18) Uncoded Allergies: seafood (Allergy, Unknown, 06/02/18) Objective Last 24 Hour Vital Signs Date Time Temp Pulse Resp B/P (MAP) Pulse Ox O2 Delivery O2 Flow Rate FiO2 02/16/20 08:39 102 14 30 02/16/20 07:15 118 16 97/52 (67) 100 02/16/20 07:08 107 14 30 02/16/20 07:00 121 16 114/53 (73) 100 02/16/20 07:00 17 Mechanical Ventilator 02/16/20 06:45 122 16 127/50 (75) 100 02/16/20 06:38 100.0 02/16/20 06:30 121 16 02/16/20 06:30 121 17 129/67 (87) 100 02/16/20 06:15 120 18 129/67 (87) 100 02/16/20 06:00 17 Mechanical Ventilator 02/16/20 06:00 121 17 133/58 (83) 100 02/16/20 05:45 121 17 138/58 (84) 100 02/16/20 05:30 101.5 122 16 136/69 (91) 100 02/16/20 05:15 115 25 129/54 (79) 100 02/16/20 05:13 94 16 30 02/16/20 05:00 112 17 127/64 (85) 100 02/16/20 05:00 17 Mechanical Ventilator 02/16/20 04:45 111 17 133/68 (89) 100 02/16/20 04:30 110 17 126/72 (90) 100 02/16/20 04:15 107 16 116/68 (84) 100 02/16/20 04:00 100.5 108 17 111/65 (80) 100 02/16/20 04:00 17 Mechanical Ventilator 30 02/16/20 04:00 30 02/16/20 04:00 Mechanical Ventilator 02/16/20 03:45 108 17 116/67 (83) 100 02/16/20 03:30 106 17 114/64 (81) 100 02/16/20 03:25 106 02/16/20 03:16 100 18 30 02/16/20 03:15 106 17 114/39 (64) 100 02/16/20 03:00 108 18 125/67 (86) 100 02/16/20 03:00 17 Mechanical Ventilator 30 02/16/20 02:45 109 18 121/55 (77) 100 02/16/20 02:30 111 18 117/61 (79) 100 02/16/20 02:15 110 17 116/63 (80) 100 02/16/20 02:00 18 Mechanical Ventilator 30 02/16/20 02:00 108 17 120/63 (82) 100 02/16/20 01:49 17 Mechanical Ventilator 02/16/20 01:45 108 18 118/67 (84) 100 02/16/20 01:30 106 18 121/69 (86) 100 02/16/20 01:15 104 16 121/63 (82) 100 02/16/20 01:15 17 30 02/16/20 01:00 17 Mechanical Ventilator 30 02/16/20 01:00 105 20 125/60 (81) 100 02/16/20 00:45 104 20 116/66 (83) 100 02/16/20 00:34 104 22 30 02/16/20 00:30 104 20 117/44 (68) 100 02/16/20 00:15 99 18 116/67 (83) 100 02/16/20 00:00 30 02/16/20 00:00 99.4 97 18 117/62 (80) 100 02/16/20 00:00 Mechanical Ventilator 02/16/20 00:00 17 Mechanical Ventilator 30 02/15/20 23:45 95 18 106/59 (75) 100 02/15/20 23:32 93 02/15/20 23:30 93 17 105/58 (74) 100 02/15/20 23:15 93 19 109/59 (76) 100 02/15/20 23:00 17 Mechanical Ventilator 30 02/15/20 23:00 92 17 99/54 (69) 100 02/15/20 22:53 86 15 30 02/15/20 22:45 91 18 100/57 (71) 100 02/15/20 22:30 91 18 108/57 (74) 100 02/15/20 22:15 89 17 101/59 (73) 100 02/15/20 22:00 18 Mechanical Ventilator 30 02/15/20 22:00 90 18 99/52 (68) 100 02/15/20 21:45 90 18 100/57 (71) 100 02/15/20 21:30 86 16 105/57 (73) 02/15/20 21:15 86 17 100/55 (70) 100 02/15/20 21:06 75 14 30 02/15/20 21:04 85 17 98/55 (69) 100 02/15/20 21:00 85 98/55 02/15/20 21:00 16 Mechanical Ventilator 30 02/15/20 21:00 85 16 100/54 (69) 100 02/15/20 20:45 87 16 108/56 (73) 100 02/15/20 20:30 78 15 108/56 (73) 100 02/15/20 20:15 78 15 97/52 (67) 100 02/15/20 20:00 Mechanical Ventilator 02/15/20 20:00 15 Mechanical Ventilator 30 02/15/20 20:00 98.8 77 14 94/52 (66) 100 02/15/20 20:00 30 02/15/20 19:45 76 15 91/54 (66) 100 02/15/20 19:44 74 02/15/20 19:30 76 15 104/57 (73) 100 02/15/20 19:18 77 16 30 02/15/20 19:15 74 14 91/54 (66) 100 02/15/20 19:00 18 Mechanical Ventilator 30 02/15/20 19:00 73 14 89/51 (64) 100 02/15/20 18:45 73 14 92/52 (65) 100 02/15/20 18:23 74 14 87/48 (61) 100 02/15/20 18:15 75 14 88/49 (62) 100 02/15/20 18:00 18 Mechanical Ventilator 30 02/15/20 18:00 74 13 97/56 (70) 100 02/15/20 17:45 74 12 89/52 (64) 100 02/15/20 17:30 75 13 82/47 (59) 100 02/15/20 17:15 75 15 92/51 (65) 100 02/15/20 17:06 71 14 30 02/15/20 17:00 18 Mechanical Ventilator 30 02/15/20 17:00 75 14 92/54 (67) 100 02/15/20 16:45 76 14 93/54 (67) 100 02/15/20 16:30 77 15 94/49 (64) 100 02/15/20 16:15 77 15 98/52 (67) 100 02/15/20 16:00 30 02/15/20 16:00 Mechanical Ventilator 02/15/20 16:00 100.1 74 18 101/54 (70) 100 02/15/20 16:00 18 Mechanical Ventilator 30 02/15/20 16:00 74 02/15/20 15:45 76 15 99/55 (70) 100 02/15/20 15:30 77 16 89/49 (62) 100 02/15/20 15:29 14 Mechanical Ventilator 02/15/20 15:15 77 15 84/50 (61) 100 02/15/20 15:14 76 14 30 02/15/20 15:00 18 Mechanical Ventilator 02/15/20 15:00 78 15 92/50 (64) 100 02/15/20 14:45 92 16 118/62 (80) 100 02/15/20 14:30 116 23 131/81 (98) 02/15/20 14:13 110 134/69 02/15/20 14:00 100.5 113 23 136/70 (92) 100 02/15/20 14:00 23 Mechanical Ventilator 30 02/15/20 14:00 108 02/15/20 13:30 112 22 134/69 (90) 100 02/15/20 13:00 110 23 138/65 (89) 100 02/15/20 13:00 18 Mechanical Ventilator 30 02/15/20 12:47 98 16 30 02/15/20 12:30 104 15 103/40 (61) 100 02/15/20 12:00 30 02/15/20 12:00 18 Mechanical Ventilator 30 02/15/20 12:00 Mechanical Ventilator 02/15/20 12:00 108 02/15/20 12:00 100.3 108 15 111/49 (69) 100 02/15/20 11:45 109 15 109/38 (61) 100 02/15/20 11:30 111 15 117/44 (68) 100 02/15/20 11:15 111 15 121/35 (63) 100 02/15/20 11:00 114 15 126/42 (70) 100 02/15/20 11:00 18 Mechanical Ventilator 30 02/15/20 10:45 113 16 141/43 (75) 100 02/15/20 10:32 109 18 30 02/15/20 10:30 111 16 142/49 (80) 100 02/15/20 10:15 109 17 143/53 (83) 100 02/15/20 10:00 18 Mechanical Ventilator 30 02/15/20 10:00 110 18 143/63 (89) 100 02/15/20 09:45 110 17 134/58 (83) 100 02/15/20 09:30 109 16 137/63 (87) 100 02/15/20 09:15 109 17 134/53 (80) 100 02/15/20 09:10 107 15 30 Height (Feet): 5 Height (Inches): 5.00 Weight (Pounds): 115 HEENT: mucous membranes moist, other - orally intubated Respiratory/Chest: lungs clear, other - on ventilator Cardiovascular: tachycardia Abdomen: soft, non tender, other - NGT feeding Extremities: other - edema Neurologic/Psychiatric: other - seadted Microbiology Date/Time Source Procedure Growth Status 02/13/20 21:02 Blood Blood Culture - Preliminary Resulted 02/13/20 20:45 Blood Blood Culture - Preliminary NO GROWTH AFTER 48 HOURS Resulted 02/16/20 03:00 Nasopharynx SARS-CoV-2 RdRp Gene Assay - Final Complete 02/13/20 21:02 Nasopharynx SARS-CoV-2 RdRp Gene Assay - Final Complete 02/13/20 21:02 Urine,Clean Catch Urine Culture - Preliminary Mixed Gram Positive Organism Resulted Laboratory Tests Test 02/15/20 20:45 02/16/20 03:00 Vancomycin Level Trough 18.6 ug/mL (5.0-12.0) H Sodium Level 135 MMOL/L (136-145) L Potassium Level 4.5 MMOL/L (3.5-5.1) Chloride Level 106 MMOL/L (98-107) Carbon Dioxide Level 19 MMOL/L (21-32) L Anion Gap 10 mmol/L (5-15) Blood Urea Nitrogen 9 mg/dL (7-18) Creatinine 0.5 MG/DL (0.55-1.30) L Estimat Glomerular Filtration Rate > 60 mL/min (>60) Glucose Level 125 MG/DL (74-106) H Calcium Level 7.7 MG/DL (8.5-10.1) L Magnesium Level 1.8 MG/DL (1.8-2.4) Total Bilirubin 1.0 MG/DL (0.2-1.0) Aspartate Amino Transf (AST/SGOT) 51 U/L (15-37) H Alanine Aminotransferase (ALT/SGPT) 43 U/L (12-78) Alkaline Phosphatase 172 U/L (46-116) H Troponin I 0.246 ng/mL (0.000-0.056) Pro-B-Type Natriuretic Peptide 2571 pg/mL (0-125) H Total Protein 6.1 G/DL (6.4-8.2) L Albumin 2.2 G/DL (3.4-5.0) L Globulin 3.9 g/dL Albumin/Globulin Ratio 0.6 (1.0-2.7) L Current Medications Medications (Trade) Dose Ordered Sig/Brian Route PRN Reason Start Time Stop Time Status Last Admin Dose Admin Acetaminophen (Tylenol) 650 mg Q4H PRN NG Temp >100.5 02/14/20 03:00 03/15/20 02:59 02/16/20 05:58 Acetaminophen (Tylenol) 650 mg Q4H PRN NG Mild Pain (Pain Scale 1-3) 02/14/20 03:00 03/15/20 02:59 Al Hydroxide/Mg Hydroxide (Mylanta) 30 ml Q4H PRN ORAL Dyspepsia 02/14/20 03:00 03/15/20 02:59 Apixaban (Eliquis) 5 mg BID NGT 02/14/20 09:00 05/14/20 08:59 02/16/20 09:00 Aspirin (ASA) 81 mg DAILY NG 02/15/20 09:00 03/31/20 08:59 02/16/20 09:00 Carbamazepine (TEGretol) 200 mg TID NG 02/14/20 09:00 03/15/20 08:59 02/16/20 09:00 Cefepime HCl 1 gm/ Dextrose 55 ml @ 110 mls/hr EVERY 12 HOURS IVPB 02/14/20 11:30 02/21/20 11:29 02/16/20 09:00 Gabapentin (Neurontin) 100 mg THREE TIMES A DAY ORAL 02/14/20 09:00 03/15/20 08:59 02/16/20 09:00 Lansoprazole (Prevacid) 30 mg DAILY NG 02/14/20 09:00 03/15/20 08:59 02/15/20 10:14 Lorazepam (Ativan 2mg/ml 1ml) 1 mg Q4H PRN IV For seizures 02/16/20 09:30 02/23/20 09:29 Metoprolol Tartrate (Lopressor) 25 mg Q12HR ORAL 02/15/20 21:00 05/15/20 20:59 Midazolam HCl 50 mg/Sodium Chloride 100 ml @ 0 mls/hr Q24H IV 02/16/20 01:30 02/18/20 01:19 02/16/20 01:49 Patient Own Medication (Patient's Own Med) 1 ea DAILY ORAL 02/14/20 13:00 03/15/20 12:59 02/16/20 09:01 Patient Own Medication (Patient's Own Med) 1 ea TID ORAL 02/14/20 13:00 03/15/20 12:59 02/16/20 09:01 Sildenafil Citrate (Revatio) 20 mg TID ORAL 02/14/20 09:00 05/14/20 08:59 02/16/20 09:00 Sodium Chloride 1,000 ml @ 100 mls/hr Q10H IV 02/14/20 04:00 03/15/20 03:59 02/16/20 05:04 Vancomycin HCl ([facility] pharmacy to dose) 1 ea DAILY PRN MISC Per rx protocol 02/14/20 03:00 03/15/20 02:59 Vancomycin HCl 750 mg/Dextrose 275 ml @ 183.333 mls/hr Q8H IVPB 02/14/20 06:00 02/19/20 05:59 02/16/20 05:04 Guillaume Hernandez MD Feb 16, 2020 09:11
[2020-02-16] MEDS ORDERED: LORazepam Inj 2mg/ml 1ml IV PRN (09:30)
[2020-02-17] VITALS (24 sets, daily range): BP systolic 85–147; BP diastolic 52–98
[2020-02-17] MEDS: Midazolam for drip 50 MG in NS 90 ML IV SCH (00:59)
--- NOTE | 2020-02-17 02:03 | Cardiology Progress Note ---
Subjective DATE OF SERVICE: Feb 16, 2020 On vent support Still with fever spikes Sedated Monitor: sinus tachycardia and sinus rhythm BP parameters remain tenuous - but improved; no pressor therapy req'd Troponin levels trending down. Objective Last 24 Hour Vital Signs Date Time Temp Pulse Resp B/P (MAP) Pulse Ox O2 Delivery O2 Flow Rate FiO2 02/17/20 01:22 117 22 30 02/17/20 01:00 112 18 114/69 (84) 100 02/17/20 00:00 99.2 112 23 103/69 (80) 100 02/17/20 00:00 30 02/17/20 00:00 Mechanical Ventilator 02/16/20 23:08 112 21 30 02/16/20 23:06 112 02/16/20 23:00 110 21 107/67 (80) 100 02/16/20 22:00 98.9 112 20 94/63 (73) 98 02/16/20 21:03 105 22 30 02/16/20 21:00 104 20 94/60 (71) 98 02/16/20 20:00 99.6 93 13 102/57 (72) 99 02/16/20 20:00 Mechanical Ventilator 02/16/20 20:00 30 02/16/20 19:22 95 02/16/20 19:20 95 15 30 02/16/20 19:00 98.1 100 15 108/60 (76) 99 02/16/20 18:00 101 15 87/49 (62) 99 02/16/20 17:00 110 15 136/36 (69) 99 02/16/20 16:46 99.1 02/16/20 16:35 121 12 30 02/16/20 16:10 30 02/16/20 16:00 100.8 116 18 130/67 (88) 88 02/16/20 16:00 30 02/16/20 16:00 109 02/16/20 16:00 Mechanical Ventilator 02/16/20 15:07 101 18 30 02/16/20 15:00 105 21 139/62 (87) 98 02/16/20 14:00 104 20 134/64 (87) 97 02/16/20 13:00 102 19 142/77 (98) 97 02/16/20 12:46 98 18 30 02/16/20 12:45 30 02/16/20 12:00 30 8/20/20 12:00 Mechanical Ventilator 02/16/20 12:00 97 02/16/20 12:00 98 18 123/67 (85) 02/16/20 11:00 98.8 98 15 118/56 (76) 02/16/20 10:58 94 16 30 02/16/20 10:46 107 02/16/20 10:45 96 15 106/52 (70) 02/16/20 10:30 95 16 107/54 (71) 02/16/20 10:15 99 17 108/56 (73) 02/16/20 10:00 105 18 116/55 (75) 02/16/20 09:45 19 35 02/16/20 09:45 114 21 147/72 (97) 02/16/20 09:30 115 21 166/81 (109) 02/16/20 09:30 20 Endotracheal Tube 35 02/16/20 09:30 115 21 166/81 (109) 02/16/20 09:15 110 18 125/77 (93) 99 02/16/20 09:15 19 Endotracheal Tube 35 02/16/20 09:00 91 13 99/57 (71) 02/16/20 09:00 14 Endotracheal Tube 35 02/16/20 08:39 102 14 30 02/16/20 08:30 96 14 91/52 (65) 02/16/20 08:00 Mechanical Ventilator 02/16/20 08:00 30 02/16/20 08:00 15 Endotracheal Tube 35 02/16/20 08:00 98.8 106 15 97/54 (68) 02/16/20 07:30 111 15 98/40 (59) 02/16/20 07:15 118 16 97/52 (67) 100 02/16/20 07:08 107 14 30 02/16/20 07:00 121 16 114/53 (73) 100 02/16/20 07:00 17 Mechanical Ventilator 30 02/16/20 06:45 122 16 127/50 (75) 100 02/16/20 06:30 121 16 02/16/20 06:30 121 17 129/67 (87) 100 02/16/20 06:15 120 18 129/67 (87) 100 02/16/20 06:00 17 Mechanical Ventilator 30 02/16/20 06:00 121 17 133/58 (83) 100 02/16/20 05:45 121 17 138/58 (84) 100 02/16/20 05:30 101.5 122 16 136/69 (91) 100 02/16/20 05:15 115 25 129/54 (79) 100 02/16/20 05:13 94 16 30 02/16/20 05:00 112 17 127/64 (85) 100 02/16/20 05:00 17 Mechanical Ventilator 30 02/16/20 04:45 111 17 133/68 (89) 100 02/16/20 04:30 110 17 126/72 (90) 100 02/16/20 04:15 107 16 116/68 (84) 100 02/16/20 04:00 100.5 108 17 111/65 (80) 100 02/16/20 04:00 17 Mechanical Ventilator 30 02/16/20 04:00 30 02/16/20 04:00 Mechanical Ventilator 02/16/20 03:45 108 17 116/67 (83) 100 02/16/20 03:30 106 17 114/64 (81) 100 02/16/20 03:25 106 02/16/20 03:16 100 18 30 02/16/20 03:15 106 17 114/39 (64) 100 02/16/20 03:00 108 18 125/67 (86) 100 02/16/20 03:00 17 Mechanical Ventilator 30 02/16/20 02:45 109 18 121/55 (77) 100 02/16/20 02:30 111 18 117/61 (79) 100 02/16/20 02:15 110 17 116/63 (80) 100 ROS: no change from my evaluation on 02/14/20 HEENT: Orally intubated RHYTHM: ST LUNGS: bilateral rhonchi CARDIAC: regular rhythm, normal S1 and S2, rapid rate, tachycardia ABDOMEN: normal bowel sounds, non tender, soft EXTREMITIES: non-tender, trace edema Laboratory Tests Test 02/16/20 03:00 02/16/20 14:20 Sodium Level 135 MMOL/L (136-145) L Potassium Level 4.5 MMOL/L (3.5-5.1) Chloride Level 106 MMOL/L (98-107) Carbon Dioxide Level 19 MMOL/L (21-32) L Anion Gap 10 mmol/L (5-15) Blood Urea Nitrogen 9 mg/dL (7-18) Creatinine 0.5 MG/DL (0.55-1.30) L Estimat Glomerular Filtration Rate > 60 mL/min (>60) Glucose Level 125 MG/DL (74-106) H Calcium Level 7.7 MG/DL (8.5-10.1) L Magnesium Level 1.8 MG/DL (1.8-2.4) Total Bilirubin 1.0 MG/DL (0.2-1.0) Aspartate Amino Transf (AST/SGOT) 51 U/L (15-37) H Alanine Aminotransferase (ALT/SGPT) 43 U/L (12-78) Alkaline Phosphatase 172 U/L (46-116) H Troponin I 0.246 ng/mL (0.000-0.056) Pro-B-Type Natriuretic Peptide 2571 pg/mL (0-125) H Total Protein 6.1 G/DL (6.4-8.2) L Albumin 2.2 G/DL (3.4-5.0) L Globulin 3.9 g/dL Albumin/Globulin Ratio 0.6 (1.0-2.7) L Arterial Blood pH 7.417 (7.350-7.450) Arterial Blood Partial Pressure CO2 30.2 mmHg (35.0-45.0) L Arterial Blood Partial Pressure O2 88.9 mmHg (75.0-100.0) Arterial Blood HCO3 19.0 mmol/L (22.0-26.0) L Arterial Blood Oxygen Saturation 96.8 % (95-100) Arterial Blood Base Excess -4.4 (-2-2) L Jax Test Positive Microbiology Date/Time Source Procedure Growth Status 02/16/20 03:00 Nasopharynx SARS-CoV-2 RdRp Gene Assay - Final Complete Assessment/Plan Assessment/Plan Respiratory Failure UTI Sepsis with shock Acute myocardial infarction (NSTE) Neurofibromatosis Hypokalemia Hypomagnesemia Hypovolemia Pulmonary Hypertension Aspiration PNA Vent support anti-plt rx and anticoagulation for now Anti-microbials per ID Beta blockade Maintain IVF Anti-pyretics Resp rx Marcus Main MD Feb 17, 2020 02:03
[2020-02-17] MEDS: Vancomycin 750mg/D5W 275ml IVPB SCH ×6 (05:27→22:28)
[2020-02-17 07:13] LABS: HEMOGLOBIN 11.6 G/DL (12.0-16.0); MEAN CORPUSCULAR VOLUME 96 FL (80-99); PLATELET COUNT 122 K/UL (150-450); RED BLOOD COUNT 3.64 M/UL (4.20-5.40); RED CELL DISTRIBUTION WIDTH 12.4 % (11.6-14.8); WHITE BLOOD COUNT 12.2 K/UL (4.8-10.8)
[2020-02-17 07:30] LABS: ALANINE AMINOTRANSFERASE 45 U/L (12-78); ALBUMIN 2.1 G/DL (3.4-5.0); ALBUMIN/GLOBULIN RATIO 0.5 (1.0-2.7); ALKALINE PHOSPHATASE 188 U/L (46-116); ANION GAP 9 mmol/L (5-15); ASPARTATE AMINO TRANSFERASE 56 U/L (15-37); BILIRUBIN,TOTAL 1.5 MG/DL (0.2-1.0); BLOOD UREA NITROGEN 8 mg/dL (7-18); CALCIUM 7.8 MG/DL (8.5-10.1); CARBON DIOXIDE 23 MMOL/L (21-32); CHLORIDE 104 MMOL/L (98-107); CREATININE 0.6 MG/DL (0.55-1.30); SODIUM 136 MMOL/L (136-145)
[2020-02-17 07:34] LABS: BILIRUBIN,DIRECT 0.8 MG/DL (0.0-0.3)
--- NOTE | 2020-02-17 08:28 | Critical Care Progress Note ---
Assessment/Plan Assessment/Plan respiratory failure pneumonia improved pulmonary hypertension elevated troponin possible NSTEMI paraplegia hypoxemia seizure history brain masses, chronic moderate PCM PLAN care noted IV antibiotics noted and cultures reviewed respiratory care and nursing care noted Ventilatory support on retry wean no sedation as able monitor acid base and adjust supportive care suction as needed monitor heart rate await improvement in heart rate titrate seizure meds- in good range oxygen therapy prognosis improved medications/laboratory data/nursing notes/ICU care reviewed in detail note reviewed and edited care discussed with RN and RT ICU time spent >40 minutes Critical Care - Subjective Interval Events: extubation held no distress on cara ICU care overnight reviewed ROS Limited/Unobtainable: Yes Condition: critical EKG Rhythm: Sinus Tachycardia Residuals: minimal Tube Feeding Tolerated: yes I&O: Intake and Output 02/16/20 02/17/20 19:00 07:00 Intake Total 1488.700 ml 2103.334 ml Output Total 1220 ml 560 ml Balance 268.700 ml 1543.334 ml Free Water 0 ml IV Total 1448.700 ml 1803.334 ml Tube Feeding 40 ml 240 ml Blood Product 60 ml Output Urine Total 1220 ml 560 ml # Bowel Movements 1 2 Critical Care - Objective ET-Tube: 7.0 ET Position: 23 Last 24 Hour Vital Signs Date Time Temp Pulse Resp B/P (MAP) Pulse Ox O2 Delivery O2 Flow Rate FiO2 02/17/20 07:25 118 16 30 02/17/20 07:25 100 02/17/20 07:20 95 24 30 02/17/20 07:00 99 17 102/62 (75) 100 02/17/20 06:30 99 16 02/17/20 06:00 110 18 99/76 (84) 100 02/17/20 05:00 119 19 120/68 (85) 100 02/17/20 04:35 124 22 30 02/17/20 04:00 98.8 115 17 113/77 (89) 100 02/17/20 04:00 Mechanical Ventilator 02/17/20 03:05 116 02/17/20 03:04 116 17 30 02/17/20 03:00 116 19 120/82 (95) 100 02/17/20 02:00 120 23 111/68 (82) 100 02/17/20 01:22 117 22 30 02/17/20 01:00 112 18 114/69 (84) 100 02/17/20 00:00 99.2 112 23 103/69 (80) 100 820 00:00 30 8 00:00 Mechanical Ventilator 02/16/20 23:08 112 21 30 8 23:06 112 82020 23:00 110 21 107/67 (80) 100 820 22:00 98.9 112 20 94/63 (73) 98 8 21:03 105 22 30 8 21:00 104 20 94/60 (71) 98 8 20:00 99.6 93 13 102/57 (72) 99 02/16/20 20:00 Mechanical Ventilator 02/16/20 20:00 30 02/16/20 19:22 95 8 19:20 95 15 30 02/16/20 19:00 98.1 100 15 108/60 (76) 99 02/16/20 18:00 101 15 87/49 (62) 99 02/16/20 17:00 110 15 136/36 (69) 99 02/16/20 16:46 99.1 02/16/20 16:35 121 12 30 02/16/20 16:10 30 02/16/20 16:00 100.8 116 18 130/67 (88) 88 02/16/20 16:00 30 02/16/20 16:00 109 02/16/20 16:00 Mechanical Ventilator 02/16/20 15:07 101 18 30 02/16/20 15:00 105 21 139/62 (87) 98 02/16/20 14:00 104 20 134/64 (87) 97 02/16/20 13:00 102 19 142/77 (98) 97 02/16/20 12:46 98 18 30 02/16/20 12:45 30 02/16/20 12:00 30 02/16/20 12:00 Mechanical Ventilator 02/16/20 12:00 97 02/16/20 12:00 98 18 123/67 (85) 02/16/20 11:00 98.8 98 15 118/56 (76) 02/16/20 10:58 94 16 30 02/16/20 10:46 107 02/16/20 10:45 96 15 106/52 (70) 02/16/20 10:30 95 16 107/54 (71) 02/16/20 10:15 99 17 108/56 (73) 02/16/20 10:00 105 18 116/55 (75) 02/16/20 09:45 19 35 02/16/20 09:45 114 21 147/72 (97) 02/16/20 09:30 115 21 166/81 (109) 02/16/20 09:30 20 Endotracheal Tube 35 02/16/20 09:30 115 21 166/81 (109) 02/16/20 09:15 110 18 125/77 (93) 99 02/16/20 09:15 19 Endotracheal Tube 35 02/16/20 09:00 91 13 99/57 (71) 02/16/20 09:00 14 Endotracheal Tube 35 02/16/20 08:39 102 14 30 02/16/20 08:30 96 14 91/52 (65) Labs: Labs Test 02/14/20 08:36 02/14/20 16:15 02/14/20 22:00 02/15/20 04:50 Arterial Blood pH 7.461 (7.350-7.450) Arterial Blood Partial Pressure CO2 24.7 mmHg (35.0-45.0) Arterial Blood Partial Pressure O2 144.0 mmHg (75.0-100.0) Arterial Blood HCO3 17.2 mmol/L (22.0-26.0) Arterial Blood Oxygen Saturation 98.5 % (95-100) Arterial Blood Base Excess -5.3 (-2-2) Jax Test Positive White Blood Count 9.1 K/UL (4.8-10.8) 9.1 K/UL (4.8-10.8) Red Blood Count 3.40 M/UL (4.20-5.40) 3.64 M/UL (4.20-5.40) Hemoglobin 10.5 G/DL (12.0-16.0) 11.3 G/DL (12.0-16.0) Hematocrit 33.5 % (37.0-47.0) 35.1 % (37.0-47.0) Mean Corpuscular Volume 99 FL (80-99) 96 FL (80-99) Mean Corpuscular Hemoglobin 30.8 PG (27.0-31.0) 30.9 PG (27.0-31.0) Mean Corpuscular Hemoglobin Concent 31.2 G/DL (32.0-36.0) 32.1 G/DL (32.0-36.0) Red Cell Distribution Width 13.2 % (11.6-14.8) 12.4 % (11.6-14.8) Platelet Count 109 K/UL (150-450) 128 K/UL (150-450) Mean Platelet Volume 10.9 FL (6.5-10.1) 10.4 FL (6.5-10.1) Neutrophils (%) (Auto) 80.0 % (45.0-75.0) 80.5 % (45.0-75.0) Lymphocytes (%) (Auto) 12.3 % (20.0-45.0) 12.0 % (20.0-45.0) Monocytes (%) (Auto) 6.5 % (1.0-10.0) 6.7 % (1.0-10.0) Eosinophils (%) (Auto) 0.7 % (0.0-3.0) 0.3 % (0.0-3.0) Basophils (%) (Auto) 0.6 % (0.0-2.0) 0.6 % (0.0-2.0) D-Dimer 1.60 mg/L FEU (0.00-0.49) Sodium Level 144 MMOL/L (136-145) 139 MMOL/L (136-145) Potassium Level 3.4 MMOL/L (3.5-5.1) 3.4 MMOL/L (3.5-5.1) Chloride Level 110 MMOL/L (98-107) 109 MMOL/L (98-107) Carbon Dioxide Level 22 MMOL/L (21-32) 22 MMOL/L (21-32) Anion Gap 12 mmol/L (5-15) 8 mmol/L (5-15) Blood Urea Nitrogen 14 mg/dL (7-18) 12 mg/dL (7-18) Creatinine 0.4 MG/DL (0.55-1.30) 0.6 MG/DL (0.55-1.30) Estimat Glomerular Filtration Rate > 60 mL/min (>60) > 60 mL/min (>60) Glucose Level 101 MG/DL (74-106) 91 MG/DL (74-106) Lactic Acid Level 0.60 mmol/L (0.4-2.0) Calcium Level 7.0 MG/DL (8.5-10.1) 8.0 MG/DL (8.5-10.1) Troponin I 0.388 ng/mL (0.000-0.056) 0.392 ng/mL (0.000-0.056) Vancomycin Level Trough 14.6 ug/mL (5.0-12.0) Magnesium Level 1.5 MG/DL (1.8-2.4) Total Bilirubin 0.9 MG/DL (0.2-1.0) Aspartate Amino Transf (AST/SGOT) 66 U/L (15-37) Alanine Aminotransferase (ALT/SGPT) 64 U/L (12-78) Alkaline Phosphatase 115 U/L (46-116) Total Creatine Kinase 569 U/L (26-308) Creatine Kinase MB 4.4 NG/ML (0.0-3.6) Creatine Kinase MB Relative Index 0.7 Pro-B-Type Natriuretic Peptide 2136 pg/mL (0-125) Total Protein 5.9 G/DL (6.4-8.2) Albumin 2.4 G/DL (3.4-5.0) Globulin 3.5 g/dL Albumin/Globulin Ratio 0.7 (1.0-2.7) Thyroid Stimulating Hormone (TSH) 0.952 uiU/mL (0.358-3.740) Test 02/15/20 20:45 02/16/20 03:00 02/16/20 14:20 02/17/20 05:33 Vancomycin Level Trough 18.6 ug/mL (5.0-12.0) 18.0 ug/mL (5.0-12.0) Sodium Level 135 MMOL/L (136-145) 136 MMOL/L (136-145) Potassium Level 4.5 MMOL/L (3.5-5.1) 4.0 MMOL/L (3.5-5.1) Chloride Level 106 MMOL/L (98-107) 104 MMOL/L (98-107) Carbon Dioxide Level 19 MMOL/L (21-32) 23 MMOL/L (21-32) Anion Gap 10 mmol/L (5-15) 9 mmol/L (5-15) Blood Urea Nitrogen 9 mg/dL (7-18) 8 mg/dL (7-18) Creatinine 0.5 MG/DL (0.55-1.30) 0.6 MG/DL (0.55-1.30) Estimat Glomerular Filtration Rate > 60 mL/min (>60) > 60 mL/min (>60) Glucose Level 125 MG/DL (74-106) 114 MG/DL (74-106) Calcium Level 7.7 MG/DL (8.5-10.1) 7.8 MG/DL (8.5-10.1) Magnesium Level 1.8 MG/DL (1.8-2.4) Total Bilirubin 1.0 MG/DL (0.2-1.0) 1.5 MG/DL (0.2-1.0) Aspartate Amino Transf (AST/SGOT) 51 U/L (15-37) 56 U/L (15-37) Alanine Aminotransferase (ALT/SGPT) 43 U/L (12-78) 45 U/L (12-78) Alkaline Phosphatase 172 U/L (46-116) 188 U/L (46-116) Troponin I 0.246 ng/mL (0.000-0.056) Pro-B-Type Natriuretic Peptide 2571 pg/mL (0-125) Total Protein 6.1 G/DL (6.4-8.2) 6.2 G/DL (6.4-8.2) Albumin 2.2 G/DL (3.4-5.0) 2.1 G/DL (3.4-5.0) Globulin 3.9 g/dL 4.1 g/dL Albumin/Globulin Ratio 0.6 (1.0-2.7) 0.5 (1.0-2.7) Arterial Blood pH 7.417 (7.350-7.450) Arterial Blood Partial Pressure CO2 30.2 mmHg (35.0-45.0) Arterial Blood Partial Pressure O2 88.9 mmHg (75.0-100.0) Arterial Blood HCO3 19.0 mmol/L (22.0-26.0) Arterial Blood Oxygen Saturation 96.8 % (95-100) Arterial Blood Base Excess -4.4 (-2-2) Jax Test Positive White Blood Count 12.2 K/UL (4.8-10.8) Red Blood Count 3.64 M/UL (4.20-5.40) Hemoglobin 11.6 G/DL (12.0-16.0) Hematocrit 35.0 % (37.0-47.0) Mean Corpuscular Volume 96 FL (80-99) Mean Corpuscular Hemoglobin 31.8 PG (27.0-31.0) Mean Corpuscular Hemoglobin Concent 33.1 G/DL (32.0-36.0) Red Cell Distribution Width 12.4 % (11.6-14.8) Platelet Count 122 K/UL (150-450) Mean Platelet Volume 9.9 FL (6.5-10.1) Neutrophils (%) (Auto) % (45.0-75.0) Lymphocytes (%) (Auto) % (20.0-45.0) Monocytes (%) (Auto) % (1.0-10.0) Eosinophils (%) (Auto) % (0.0-3.0) Basophils (%) (Auto) % (0.0-2.0) Direct Bilirubin 0.8 MG/DL (0.0-0.3) Objective: WDWN NAD on vent clear breath sounds bilaterally without rhonchi or wheeze [id number] without MRG NABS nontender no HSM no CCE nonfocal poor LOC reduced ROM skin noted reviewed and edited feeding tube in place Micro: Microbiology Date/Time Source Procedure Growth Status 02/16/20 14:20 Sputum Gram Stain - Final Resulted 02/16/20 14:20 Sputum Sputum Culture Pending Resulted 02/16/20 03:00 Nasopharynx SARS-CoV-2 RdRp Gene Assay - Final Complete Juan Snow MD Feb 17, 2020 08:28
[2020-02-17] MEDS: SELEXIPAG ORAL SCH ×3 (08:49→17:49)
[2020-02-17] MEDS: OPSUMIT 10 MG ORAL SCH (08:49)
[2020-02-17] MEDS: Aspirin Baby 81mg NG SCH (08:49)
[2020-02-17] MEDS: Cefepime HCl 1 GM in D5W 55 ML IVPB SCH ×2 (08:50→20:02)
[2020-02-17] MEDS: carBAMazepine 200mg tab NG SCH ×3 (08:51→17:49)
[2020-02-17] MEDS: Revatio 20mg tab ORAL SCH ×3 (08:51→17:48)
[2020-02-17] MEDS: Eliquis 5mg tablet NGT SCH ×2 (08:52→17:49)
[2020-02-17] MEDS: Lacri-Lube Opth Oint 3.5gm BOTH EYES SCH ×2 (08:53→17:48)
--- NOTE | 2020-02-17 09:18 | Infectious Diseases Prog Note ---
Assessment/Plan Assessment/Plan A 1. pneumonia COVID19 X2: negative 2. Hypoxic respiratory failure 3. neurofibromatosis 4. seizures 5. pulmonary hypertension 6. Sepsis 7. Non ST elevation NC P 1. continue iv vancomycin, cefepime 2. Will f/u sputum culture Subjective ROS Limited/Unobtainable: Yes Constitutional: Denies: fever Neurologic: Reports: confusion, other - on restraint Allergies: Coded Allergies: PENICILLINS (Verified Allergy, Severe, 08/07/12) FISH CONTAINING PRODUCTS (Verified Allergy, Unknown, 06/02/18) Uncoded Allergies: seafood (Allergy, Unknown, 06/02/18) Objective Last 24 Hour Vital Signs Date Time Temp Pulse Resp B/P (MAP) Pulse Ox O2 Delivery O2 Flow Rate FiO2 02/17/20 08:52 100 103/63 02/17/20 07:25 118 16 30 02/17/20 07:25 100 02/17/20 07:20 95 24 30 02/17/20 07:00 99 17 102/62 (75) 100 02/17/20 06:30 99 16 02/17/20 06:00 110 18 99/76 (84) 100 02/17/20 05:00 119 19 120/68 (85) 100 02/17/20 04:35 124 22 30 02/17/20 04:00 98.8 115 17 113/77 (89) 100 02/17/20 04:00 Mechanical Ventilator 02/17/20 03:05 116 02/17/20 03:04 116 17 30 02/17/20 03:00 116 19 120/82 (95) 100 02/17/20 02:00 120 23 111/68 (82) 100 02/17/20 01:22 117 22 30 02/17/20 01:00 112 18 114/69 (84) 100 02/17/20 00:00 99.2 112 23 103/69 (80) 100 02/17/20 00:00 30 02/17/20 00:00 Mechanical Ventilator 02/16/20 23:08 112 21 30 02/16/20 23:06 112 02/16/20 23:00 110 21 107/67 (80) 100 02/16/20 22:00 98.9 112 20 94/63 (73) 98 02/16/20 21:03 105 22 30 8/20/20 21:00 104 20 94/60 (71) 98 8 20:00 99.6 93 13 102/57 (72) 99 20 20:00 Mechanical Ventilator 02/16/20 20:00 30 8 19:22 95 8 19:20 95 15 30 02/16/20 19:00 98.1 100 15 108/60 (76) 99 02/16/20 18:00 101 15 87/49 (62) 99 02/16/20 17:00 110 15 136/36 (69) 99 02/16/20 16:46 99.1 02/16/20 16:35 121 12 30 02/16/20 16:10 30 02/16/20 16:00 100.8 116 18 130/67 (88) 88 02/16/20 16:00 30 02/16/20 16:00 109 02/16/20 16:00 Mechanical Ventilator 02/16/20 15:07 101 18 30 02/16/20 15:00 105 21 139/62 (87) 98 02/16/20 14:00 104 20 134/64 (87) 97 02/16/20 13:00 102 19 142/77 (98) 97 02/16/20 12:46 98 18 30 02/16/20 12:45 30 02/16/20 12:00 30 02/16/20 12:00 Mechanical Ventilator 02/16/20 12:00 97 02/16/20 12:00 98 18 123/67 (85) 02/16/20 11:00 98.8 98 15 118/56 (76) 02/16/20 10:58 94 16 30 02/16/20 10:46 107 02/16/20 10:45 96 15 106/52 (70) 02/16/20 10:30 95 16 107/54 (71) 02/16/20 10:15 99 17 108/56 (73) 02/16/20 10:00 105 18 116/55 (75) 02/16/20 09:45 19 35 02/16/20 09:45 114 21 147/72 (97) 02/16/20 09:30 115 21 166/81 (109) 02/16/20 09:30 20 Endotracheal Tube 35 02/16/20 09:30 115 21 166/81 (109) Height (Feet): 5 Height (Inches): 5.00 Weight (Pounds): 113 HEENT: other - orally intubated Respiratory/Chest: other - few rhonchi, on ventilator Cardiovascular: tachycardia Abdomen: soft, non tender Extremities: other - generalized edema Neurologic/Psychiatric: unresponsiveness Microbiology Date/Time Source Procedure Growth Status 02/16/20 14:20 Sputum Gram Stain - Final Resulted 02/16/20 14:20 Sputum Sputum Culture Pending Resulted 02/16/20 03:00 Nasopharynx SARS-CoV-2 RdRp Gene Assay - Final Complete Laboratory Tests Test 02/16/20 14:20 02/17/20 05:33 Arterial Blood pH 7.417 (7.350-7.450) Arterial Blood Partial Pressure CO2 30.2 mmHg (35.0-45.0) L Arterial Blood Partial Pressure O2 88.9 mmHg (75.0-100.0) Arterial Blood HCO3 19.0 mmol/L (22.0-26.0) L Arterial Blood Oxygen Saturation 96.8 % (95-100) Arterial Blood Base Excess -4.4 (-2-2) L Jax Test Positive White Blood Count 12.2 K/UL (4.8-10.8) H Red Blood Count 3.64 M/UL (4.20-5.40) L Hemoglobin 11.6 G/DL (12.0-16.0) L Hematocrit 35.0 % (37.0-47.0) L Mean Corpuscular Volume 96 FL (80-99) Mean Corpuscular Hemoglobin 31.8 PG (27.0-31.0) H Mean Corpuscular Hemoglobin Concent 33.1 G/DL (32.0-36.0) Red Cell Distribution Width 12.4 % (11.6-14.8) Platelet Count 122 K/UL (150-450) L Mean Platelet Volume 9.9 FL (6.5-10.1) Neutrophils (%) (Auto) % (45.0-75.0) Lymphocytes (%) (Auto) % (20.0-45.0) Monocytes (%) (Auto) % (1.0-10.0) Eosinophils (%) (Auto) % (0.0-3.0) Basophils (%) (Auto) % (0.0-2.0) Neutrophils % (Manual) Pending Lymphocytes % (Manual) Pending Platelet Estimate Pending Platelet Morphology Pending Sodium Level 136 MMOL/L (136-145) Potassium Level 4.0 MMOL/L (3.5-5.1) Chloride Level 104 MMOL/L (98-107) Carbon Dioxide Level 23 MMOL/L (21-32) Anion Gap 9 mmol/L (5-15) Blood Urea Nitrogen 8 mg/dL (7-18) Creatinine 0.6 MG/DL (0.55-1.30) Estimat Glomerular Filtration Rate > 60 mL/min (>60) Glucose Level 114 MG/DL (74-106) H Calcium Level 7.8 MG/DL (8.5-10.1) L Total Bilirubin 1.5 MG/DL (0.2-1.0) H Direct Bilirubin 0.8 MG/DL (0.0-0.3) H Aspartate Amino Transf (AST/SGOT) 56 U/L (15-37) H Alanine Aminotransferase (ALT/SGPT) 45 U/L (12-78) Alkaline Phosphatase 188 U/L (46-116) H Total Protein 6.2 G/DL (6.4-8.2) L Albumin 2.1 G/DL (3.4-5.0) L Globulin 4.1 g/dL Albumin/Globulin Ratio 0.5 (1.0-2.7) L Vancomycin Level Trough 18.0 ug/mL (5.0-12.0) H Current Medications Medications (Trade) Dose Ordered Sig/Brian Route PRN Reason Start Time Stop Time Status Last Admin Dose Admin Acetaminophen (Tylenol) 650 mg Q4H PRN NG Temp >100.5 02/14/20 03:00 03/15/20 02:59 02/16/20 16:16 Acetaminophen (Tylenol) 650 mg Q4H PRN NG Mild Pain (Pain Scale 1-3) 02/14/20 03:00 03/15/20 02:59 02/17/20 05:28 Al Hydroxide/Mg Hydroxide (Mylanta) 30 ml Q4H PRN ORAL Dyspepsia 02/14/20 03:00 03/15/20 02:59 Apixaban (Eliquis) 5 mg BID NGT 02/14/20 09:00 05/14/20 08:59 02/17/20 08:52 Artificial Tears (Lacri-Lube) 1 applic BID BOTH EYES 02/17/20 09:30 03/18/20 09:29 02/17/20 08:53 Aspirin (ASA) 81 mg DAILY NG 02/15/20 09:00 03/31/20 08:59 02/17/20 08:49 Carbamazepine (TEGretol) 200 mg TID NG 02/14/20 09:00 03/15/20 08:59 02/17/20 08:51 Cefepime HCl 1 gm/ Dextrose 55 ml @ 110 mls/hr EVERY 12 HOURS IVPB 02/14/20 11:30 02/21/20 11:29 02/17/20 08:50 Gabapentin (Neurontin) 100 mg THREE TIMES A DAY ORAL 02/14/20 09:00 03/15/20 08:59 02/17/20 08:51 Lansoprazole (Prevacid) 30 mg DAILY NG 02/14/20 09:00 03/15/20 08:59 02/17/20 08:50 Lorazepam (Ativan 2mg/ml 1ml) 1 mg Q4H PRN IV For seizures 02/16/20 09:30 02/23/20 09:29 Metoprolol Tartrate (Lopressor) 25 mg Q12HR ORAL 02/15/20 21:00 05/15/20 20:59 02/17/20 08:52 Midazolam HCl 50 mg/Sodium Chloride 100 ml @ 0 mls/hr Q24H IV 02/16/20 01:30 02/18/20 01:19 02/16/20 01:49 Patient Own Medication (Patient's Own Med) 1 ea DAILY ORAL 02/14/20 13:00 03/15/20 12:59 02/17/20 08:49 Patient Own Medication (Patient's Own Med) 1 ea TID ORAL 02/14/20 13:00 03/15/20 12:59 02/17/20 08:49 Sildenafil Citrate (Revatio) 20 mg TID ORAL 02/14/20 09:00 05/14/20 08:59 02/17/20 08:51 Sodium Chloride 1,000 ml @ 100 mls/hr Q10H IV 02/14/20 04:00 03/15/20 03:59 02/17/20 00:59 Vancomycin HCl ([facility] pharmacy to dose) 1 ea DAILY PRN MISC Per rx protocol 02/14/20 03:00 03/15/20 02:59 Vancomycin HCl 750 mg/Dextrose 275 ml @ 183.333 mls/hr Q8H IVPB 02/14/20 06:00 02/20/20 23:59 02/17/20 05:27 Guillaume Hernandez MD Feb 17, 2020 09:17
[2020-02-17] MEDS ORDERED: Sterile Water Irrig 1000ml IRRIG ONE (11:50)
[2020-02-17] MEDS ORDERED: NS 275ml ONE (11:50)
[2020-02-17] MEDS ORDERED: D5W 275ml ONE (11:50)
[2020-02-17] MEDS ORDERED: Tubing IV Secondary IV ONE (11:50)
--- NOTE | 2020-02-17 13:17 | General Progress Note ---
Assessment/Plan Problem List: (1) Seizure disorder ICD Codes: G40.909 - Epilepsy, unspecified, not intractable,without status epilepticus SNOMED: 846326493 (2) Pulmonary hypertension ICD Codes: I27.20 - Pulmonary hypertension, unspecified SNOMED: 63185715 (3) Respiratory failure ICD Codes: J96.90 - Respiratory failure, unspecified, unspecified whether with hypoxia or hypercapnia SNOMED: 919630391 Qualifiers: Qualified Codes: J96.01 - Acute respiratory failure with hypoxia (4) Severe sepsis ICD Codes: A41.9 - Sepsis, unspecified organism; R65.20 - Severe sepsis without septic shock SNOMED: 94446629 (5) NSTEMI (non-ST elevated myocardial infarction) ICD Codes: I21.4 - Non-ST elevation (NSTEMI) myocardial infarction SNOMED: 79614188 (6) Fever ICD Codes: R50.9 - Fever, unspecified SNOMED: 708085462 (7) Dyspnea ICD Codes: R06.00 - Dyspnea, unspecified SNOMED: 117121206 Status: stable, not improved Assessment/Plan: cont vent support wean per pulm wean sedation sz rx Neuro eval iv abx per ID follow up cultures monitor labs replace lytes as needed dvt/stress ulcer prophylaxis tube feeds turn q2 Subjective ROS Limited/Unobtainable: Yes Constitutional: Reports: malaise, weakness HEENT: Reports: no symptoms Cardiovascular: Reports: no symptoms Respiratory: Reports: shortness of breath Gastrointestinal/Abdominal: Reports: difficulty swallowing Genitourinary: Reports: no symptoms Neurologic/Psychiatric: Reports: pre-existing deficit, seizure Endocrine: Reports: no symptoms Hematologic/Lymphatic: Reports: anemia Allergies: Coded Allergies: PENICILLINS (Verified Allergy, Severe, 08/07/12) FISH CONTAINING PRODUCTS (Verified Allergy, Unknown, 06/02/18) Uncoded Allergies: seafood (Allergy, Unknown, 06/02/18) All Systems: reviewed and negative except above Subjective no events. stable on the vent. fio2 down to 30%. no secretions. tolerating feeds. no szs. remains sedated. blood cultures with gram positive rods. Objective Last 24 Hour Vital Signs Date Time Temp Pulse Resp B/P (MAP) Pulse Ox O2 Delivery O2 Flow Rate FiO2 02/17/20 13:00 80 15 108/64 (79) 99 02/17/20 12:51 80 16 30 02/17/20 12:00 Mechanical Ventilator 02/17/20 12:00 98.0 76 16 107/64 (78) 93 02/17/20 12:00 76 02/17/20 12:00 30 02/17/20 11:15 73 20 30 02/17/20 11:00 73 11 101/72 (82) 93 02/17/20 10:00 69 16 85/52 (63) 98 02/17/20 09:00 109 21 147/98 (114) 100 02/17/20 08:52 100 103/63 02/17/20 08:36 83 16 30 02/17/20 08:00 30 02/17/20 08:00 98.6 90 15 103/64 (77) 100 02/17/20 08:00 Mechanical Ventilator 02/17/20 08:00 88 02/17/20 07:25 118 16 30 02/17/20 07:25 100 02/17/20 07:20 95 24 30 02/17/20 07:00 99 17 102/62 (75) 100 02/17/20 06:30 99 16 02/17/20 06:00 110 18 99/76 (84) 100 02/17/20 05:00 119 19 120/68 (85) 100 02/17/20 04:35 124 22 30 02/17/20 04:00 98.8 115 17 113/77 (89) 100 02/17/20 04:00 Mechanical Ventilator 02/17/20 03:05 116 02/17/20 03:04 116 17 30 02/17/20 03:00 116 19 120/82 (95) 100 02/17/20 02:00 120 23 111/68 (82) 100 02/17/20 01:22 117 22 30 02/17/20 01:00 112 18 114/69 (84) 100 02/17/20 00:00 99.2 112 23 103/69 (80) 100 02/17/20 00:00 30 02/17/20 00:00 Mechanical Ventilator 02/16/20 23:08 112 21 30 02/16/20 23:06 112 02/16/20 23:00 110 21 107/67 (80) 100 02/16/20 22:00 98.9 112 20 94/63 (73) 98 02/16/20 21:03 105 22 30 02/16/20 21:00 104 20 94/60 (71) 98 02/16/20 20:00 99.6 93 13 102/57 (72) 99 02/16/20 20:00 Mechanical Ventilator 02/16/20 20:00 30 02/16/20 19:22 95 02/16/20 19:20 95 15 30 02/16/20 19:00 98.1 100 15 108/60 (76) 99 02/16/20 18:00 101 15 87/49 (62) 99 02/16/20 17:00 110 15 136/36 (69) 99 02/16/20 16:46 99.1 02/16/20 16:35 121 12 30 02/16/20 16:10 30 02/16/20 16:00 100.8 116 18 130/67 (88) 88 02/16/20 16:00 30 02/16/20 16:00 109 02/16/20 16:00 Mechanical Ventilator 02/16/20 15:07 101 18 30 02/16/20 15:00 105 21 139/62 (87) 98 02/16/20 14:00 104 20 134/64 (87) 97 Intake and Output 02/16/20 02/17/20 19:00 07:00 Intake Total 1488.700 ml 2103.334 ml Output Total 1220 ml 560 ml Balance 268.700 ml 1543.334 ml Free Water 0 ml IV Total 1448.700 ml 1803.334 ml Tube Feeding 40 ml 240 ml Blood Product 60 ml Output Urine Total 1220 ml 560 ml # Bowel Movements 1 2 Laboratory Tests 02/16/20 14:20: Arterial Blood pH 7.417, Arterial Blood Partial Pressure CO2 30.2L, Arterial Blood Partial Pressure O2 88.9, Arterial Blood HCO3 19.0L, Arterial Blood Oxygen Saturation 96.8, Arterial Blood Base Excess -4.4L, Jax Test Positive 02/17/20 05:33: White Blood Count 12.2H, Red Blood Count 3.64L, Hemoglobin 11.6L, Hematocrit 35.0L, Mean Corpuscular Volume 96, Mean Corpuscular Hemoglobin 31.8H, Mean Corpuscular Hemoglobin Concent 33.1, Red Cell Distribution Width 12.4, Platelet Count 122L, Mean Platelet Volume 9.9, Neutrophils (%) (Auto) , Lymphocytes (%) ( Auto) , Monocytes (%) (Auto) , Eosinophils (%) (Auto) , Basophils (%) (Auto) , Differential Total Cells Counted 100, Neutrophils % (Manual) 83H, Lymphocytes % (Manual) 10L, Monocytes % (Manual) 7, Eosinophils % (Manual) 0, Basophils % ( Manual) 0, Band Neutrophils 0, Platelet Estimate DecreasedL, Platelet Morphology Normal, Sodium Level 136, Potassium Level 4.0, Chloride Level 104, Carbon Dioxide Level 23, Anion Gap 9, Blood Urea Nitrogen 8, Creatinine 0.6, Estimat Glomerular Filtration Rate > 60, Glucose Level 114H, Calcium Level 7.8L , Total Bilirubin 1.5H, Direct Bilirubin 0.8H, Aspartate Amino Transf (AST/SGOT ) 56H, Alanine Aminotransferase (ALT/SGPT) 45, Alkaline Phosphatase 188H, Total Protein 6.2L, Albumin 2.1L, Globulin 4.1, Albumin/Globulin Ratio 0.5L, Vancomycin Level Trough 18.0H Height (Feet): 5 Height (Inches): 5.00 Weight (Pounds): 113 Objective General Appearance: WD/WN, confused EENT: PERRL/EOMI, normal ENT inspection Neck: non-tender, normal alignment Cardiovascular: normal peripheral pulses, normal rate Respiratory/Chest: chest wall non-tender, lungs clear, normal breath sounds Abdomen: normal bowel sounds, non tender Edema: no edema noted Arm (L), no edema noted Arm (R) Neurologic: disoriented, unresponsive Skin: normal pigmentation Lymphatic: normal anterior cervical (L), normal anterior cervical (R) Liborio Dugan MD Feb 17, 2020 13:17
[2020-02-17] MEDS ORDERED: Dyna-Hex 2% Top Sol 2oz TOPIC SCH (20:00)
--- NOTE | 2020-02-17 21:29 | Cardiology Progress Note ---
Subjective DATE OF SERVICE: Feb 17, 2020 On vent support - 30% FIO2 Still with fever spikes Sedated Monitor: sinus tachycardia and sinus rhythm BP parameters improved; no pressor therapy req'd Troponin levels trending down. Objective Last 24 Hour Vital Signs Date Time Temp Pulse Resp B/P (MAP) Pulse Ox O2 Delivery O2 Flow Rate FiO2 02/17/20 20:00 Mechanical Ventilator 02/17/20 20:00 98.9 109 18 115/55 (75) 100 02/17/20 20:00 30 02/17/20 19:53 111 24 30 02/17/20 19:49 110 02/17/20 19:00 109 23 102/54 (70) 99 02/17/20 18:00 102 18 103/64 (77) 97 02/17/20 17:00 103 21 107/65 (79) 97 02/17/20 16:39 105 25 30 02/17/20 16:00 98.6 88 19 107/71 (83) 100 02/17/20 16:00 Mechanical Ventilator 02/17/20 16:00 89 02/17/20 16:00 30 02/17/20 15:00 81 16 108/68 (81) 100 02/17/20 14:59 83 17 30 02/17/20 14:00 83 16 106/66 (79) 02/17/20 13:00 80 15 108/64 (79) 99 02/17/20 12:51 80 16 30 02/17/20 12:00 Mechanical Ventilator 02/17/20 12:00 98.0 76 16 107/64 (78) 93 02/17/20 12:00 76 02/17/20 12:00 30 02/17/20 11:15 73 20 30 02/17/20 11:00 73 11 101/72 (82) 93 02/17/20 10:00 69 16 85/52 (63) 98 02/17/20 09:00 109 21 147/98 (114) 100 02/17/20 08:52 100 103/63 02/17/20 08:36 83 16 30 02/17/20 08:00 30 02/17/20 08:00 98.6 90 15 103/64 (77) 100 02/17/20 08:00 Mechanical Ventilator 02/17/20 08:00 88 02/17/20 07:25 118 16 30 02/17/20 07:25 100 02/17/20 07:20 95 24 30 02/17/20 07:00 99 17 102/62 (75) 100 02/17/20 06:30 99 16 02/17/20 06:00 110 18 99/76 (84) 100 02/17/20 05:00 119 19 120/68 (85) 100 02/17/20 04:35 124 22 30 02/17/20 04:00 98.8 115 17 113/77 (89) 100 02/17/20 04:00 Mechanical Ventilator 02/17/20 03:05 116 02/17/20 03:04 116 17 30 02/17/20 03:00 116 19 120/82 (95) 100 02/17/20 02:00 120 23 111/68 (82) 100 02/17/20 01:22 117 22 30 02/17/20 01:00 112 18 114/69 (84) 100 02/17/20 00:00 99.2 112 23 103/69 (80) 100 02/17/20 00:00 30 02/17/20 00:00 Mechanical Ventilator 02/16/20 23:08 112 21 30 02/16/20 23:06 112 02/16/20 23:00 110 21 107/67 (80) 100 02/16/20 22:00 98.9 112 20 94/63 (73) 98 ROS: no change from my evaluation on 02/14/20 HEENT: Orally intubated RHYTHM: ST LUNGS: bilateral rhonchi CARDIAC: regular rhythm, normal S1 and S2, rapid rate, tachycardia ABDOMEN: normal bowel sounds, non tender, soft EXTREMITIES: non-tender, trace edema Laboratory Tests Test 02/17/20 05:33 White Blood Count 12.2 K/UL (4.8-10.8) H Red Blood Count 3.64 M/UL (4.20-5.40) L Hemoglobin 11.6 G/DL (12.0-16.0) L Hematocrit 35.0 % (37.0-47.0) L Mean Corpuscular Volume 96 FL (80-99) Mean Corpuscular Hemoglobin 31.8 PG (27.0-31.0) H Mean Corpuscular Hemoglobin Concent 33.1 G/DL (32.0-36.0) Red Cell Distribution Width 12.4 % (11.6-14.8) Platelet Count 122 K/UL (150-450) L Mean Platelet Volume 9.9 FL (6.5-10.1) Neutrophils (%) (Auto) % (45.0-75.0) Lymphocytes (%) (Auto) % (20.0-45.0) Monocytes (%) (Auto) % (1.0-10.0) Eosinophils (%) (Auto) % (0.0-3.0) Basophils (%) (Auto) % (0.0-2.0) Differential Total Cells Counted 100 Neutrophils % (Manual) 83 % (45-75) H Lymphocytes % (Manual) 10 % (20-45) L Monocytes % (Manual) 7 % (1-10) Eosinophils % (Manual) 0 % (0-3) Basophils % (Manual) 0 % (0-2) Band Neutrophils 0 % (0-8) Platelet Estimate Decreased L Platelet Morphology Normal Sodium Level 136 MMOL/L (136-145) Potassium Level 4.0 MMOL/L (3.5-5.1) Chloride Level 104 MMOL/L (98-107) Carbon Dioxide Level 23 MMOL/L (21-32) Anion Gap 9 mmol/L (5-15) Blood Urea Nitrogen 8 mg/dL (7-18) Creatinine 0.6 MG/DL (0.55-1.30) Estimat Glomerular Filtration Rate > 60 mL/min (>60) Glucose Level 114 MG/DL (74-106) H Calcium Level 7.8 MG/DL (8.5-10.1) L Total Bilirubin 1.5 MG/DL (0.2-1.0) H Direct Bilirubin 0.8 MG/DL (0.0-0.3) H Aspartate Amino Transf (AST/SGOT) 56 U/L (15-37) H Alanine Aminotransferase (ALT/SGPT) 45 U/L (12-78) Alkaline Phosphatase 188 U/L (46-116) H Total Protein 6.2 G/DL (6.4-8.2) L Albumin 2.1 G/DL (3.4-5.0) L Globulin 4.1 g/dL Albumin/Globulin Ratio 0.5 (1.0-2.7) L Vancomycin Level Trough 18.0 ug/mL (5.0-12.0) H Microbiology Date/Time Source Procedure Growth Status 02/16/20 14:20 Sputum Gram Stain - Final Resulted 02/16/20 14:20 Sputum Sputum Culture Pending Resulted 02/16/20 03:00 Nasopharynx SARS-CoV-2 RdRp Gene Assay - Final Complete Assessment/Plan Assessment/Plan Respiratory Failure UTI Sepsis with shock Acute myocardial infarction (NSTE) Neurofibromatosis Hypokalemia Hypomagnesemia Hypovolemia Pulmonary Hypertension Aspiration PNA Vent support - wean anti-plt rx and anticoagulation for now Anti-microbials per ID Beta blockade Maintain IVF Anti-pyretics Resp rx DVT prophylaxis Marcus Main MD Feb 17, 2020 21:29
[2020-02-18] VITALS (24 sets, daily range): BP systolic 95–161; BP diastolic 51–95
[2020-02-18] MEDS: Vancomycin 750mg/D5W 275ml IVPB SCH ×6 (05:25→22:18)
[2020-02-18 05:31] LABS: BASOPHILS % (AUTO) 0.5 % (0.0-2.0); HEMATOCRIT 32.7 % (37.0-47.0); HEMOGLOBIN 10.6 G/DL (12.0-16.0); LYMPHOCYTES % (AUTO) 12.2 % (20.0-45.0); MEAN CORPUSCULAR VOLUME 96 FL (80-99); MONOCYTES % (AUTO) 12.1 % (1.0-10.0); NEUTROPHILS % (AUTO) 75.2 % (45.0-75.0); PLATELET COUNT 127 K/UL (150-450); RED BLOOD COUNT 3.41 M/UL (4.20-5.40); RED CELL DISTRIBUTION WIDTH 12.2 % (11.6-14.8); WHITE BLOOD COUNT 10.9 K/UL (4.8-10.8)
[2020-02-18 06:06] LABS: ALANINE AMINOTRANSFERASE 43 U/L (12-78); ALBUMIN 2.1 G/DL (3.4-5.0); ALBUMIN/GLOBULIN RATIO 0.5 (1.0-2.7); ALKALINE PHOSPHATASE 187 U/L (46-116); ANION GAP 9 mmol/L (5-15); ASPARTATE AMINO TRANSFERASE 45 U/L (15-37); BILIRUBIN,TOTAL 1.1 MG/DL (0.2-1.0); BLOOD UREA NITROGEN 13 mg/dL (7-18); CALCIUM 8.2 MG/DL (8.5-10.1); CARBON DIOXIDE 20 MMOL/L (21-32); CHLORIDE 107 MMOL/L (98-107); CREATININE 0.9 MG/DL (0.55-1.30); POTASSIUM 3.9 MMOL/L (3.5-5.1); SODIUM 136 MMOL/L (136-145)
[2020-02-18 06:32] LABS: BILIRUBIN,DIRECT 0.6 MG/DL (0.0-0.3)
--- NOTE | 2020-02-18 06:46 | Pulmonolgy Critical Care Note ---
Critical Care - Asmt/Plan Assessment/Plan: Pulmonary CCM Progress Note Assessment/Plan Assessment/Plan respiratory failure pneumonia UTI pulmonary hypertension elevated troponin possible NSTEMI paraplegia hypoxemia seizure history brain masses, chronic moderate PCM PLAN care noted IV antibiotics noted and cultures reviewed respiratory care and nursing care noted Ventilatory support - wean as tolerated retry wean no sedation as able monitor acid base and adjust supportive care suction as needed monitor heart rate await improvement in heart rate seizure meds prognosis improved medications/laboratory data/nursing notes/ICU care reviewed in detail note reviewed and edited care discussed with RN and RT ICU time spent >40 minutes Critical Care - Subjective Interval Events: weaning astolerated no distress on cara ICU care overnight reviewed ROS Limited/Unobtainable: Yes Condition: critical EKG Rhythm: Sinus Tachycardia Residuals: minimal Tube Feeding Tolerated: yes Vital Signs Noted Labs: Noted Objective: WDWN NAD on vent clear breath sounds bilaterally without rhonchi or wheeze [id number] without MRG NABS nontender no HSM no CCE nonfocal poor LOC reduced ROM skin noted reviewed and edited feeding tube in place Critical Care - Objective Last 24 Hour Vital Signs Date Time Temp Pulse Resp B/P (MAP) Pulse Ox O2 Delivery O2 Flow Rate FiO2 02/18/20 06:30 114 22 02/18/20 06:00 120 23 132/85 (101) 100 02/18/20 05:00 123 28 131/83 (99) 100 02/18/20 04:00 30 02/18/20 04:00 99.0 125 16 161/95 (117) 100 02/18/20 04:00 Mechanical Ventilator 02/18/20 03:43 126 15 30 02/18/20 03:05 113 02/18/20 03:00 114 20 115/68 (84) 100 02/18/20 02:00 127 25 136/90 (105) 100 02/18/20 01:00 129 24 145/94 (111) 100 02/18/20 00:00 30 02/18/20 00:00 Mechanical Ventilator 02/18/20 00:00 98.9 123 23 138/87 (104) 100 02/17/20 23:58 123 17 30 02/17/20 23:00 115 02/17/20 23:00 117 21 117/64 (81) 100 02/17/20 22:00 121 22 124/75 (91) 100 02/17/20 21:00 118 22 117/68 (84) 100 02/17/20 20:00 Mechanical Ventilator 02/17/20 20:00 98.9 109 18 115/55 (75) 100 02/17/20 20:00 30 02/17/20 19:53 111 24 30 02/17/20 19:49 110 02/17/20 19:00 109 23 102/54 (70) 99 02/17/20 18:00 102 18 103/64 (77) 97 02/17/20 17:00 103 21 107/65 (79) 97 02/17/20 16:39 105 25 30 02/17/20 16:00 98.6 88 19 107/71 (83) 100 02/17/20 16:00 Mechanical Ventilator 02/17/20 16:00 89 02/17/20 16:00 30 02/17/20 15:00 81 16 108/68 (81) 100 02/17/20 14:59 83 17 30 02/17/20 14:00 83 16 106/66 (79) 02/17/20 13:00 80 15 108/64 (79) 99 02/17/20 12:51 80 16 30 02/17/20 12:00 Mechanical Ventilator 02/17/20 12:00 98.0 76 16 107/64 (78) 93 02/17/20 12:00 76 02/17/20 12:00 30 02/17/20 11:15 73 20 30 02/17/20 11:00 73 11 101/72 (82) 93 02/17/20 10:00 69 16 85/52 (63) 98 02/17/20 09:00 109 21 147/98 (114) 100 02/17/20 08:52 100 103/63 02/17/20 08:36 83 16 30 02/17/20 08:00 30 02/17/20 08:00 98.6 90 15 103/64 (77) 100 02/17/20 08:00 Mechanical Ventilator 02/17/20 08:00 88 02/17/20 07:25 118 16 30 02/17/20 07:25 100 02/17/20 07:20 95 24 30 02/17/20 07:00 99 17 102/62 (75) 100 Micro: Microbiology Date/Time Source Procedure Growth Status 02/16/20 14:20 Sputum Gram Stain - Final Resulted 02/16/20 14:20 Sputum Culture - Preliminary Gram Negative Charly Resulted 02/16/20 03:00 Nasopharynx SARS-CoV-2 RdRp Gene Assay - Final Complete Critical Care - Subjective ROS Limited/Unobtainable: Yes Condition: critical FI02: 30 Vent Support Breath Rate: 12 Vent Support Mode: AC Vent Tidal Volume: 450 Sputum Amount: Scant PEEP: 5.0 PIP: 37 Tube Feeding Amount: 20 I&O: Intake and Output 02/17/20 02/18/20 19:00 07:00 Intake Total 1793 ml 1919.997 ml Output Total 460 ml 340 ml Balance 1333 ml 1579.997 ml Free Water 90 ml 90 ml IV Total 1463 ml 1609.997 ml Tube Feeding 240 ml 220 ml Output Urine Total 460 ml 340 ml # Bowel Movements 7 1 ET-Tube: 7.0 ET Position: 23 Marcus Campbell MD Feb 18, 2020 06:46
[2020-02-18] MEDS ORDERED: Tubing IV Secondary IV ONE (08:29)
[2020-02-18] MEDS ORDERED: NS 275ml ONE (08:29)
[2020-02-18] MEDS ORDERED: D5NS 1000ml IV ONE (08:29)
[2020-02-18] MEDS ORDERED: NS 500ML ONE (08:29)
[2020-02-18] MEDS: OPSUMIT 10 MG ORAL SCH (09:22)
[2020-02-18] MEDS: SELEXIPAG ORAL SCH ×3 (09:23→17:33)
[2020-02-18] MEDS: Revatio 20mg tab ORAL SCH ×3 (09:23→17:33)
[2020-02-18] MEDS: Eliquis 5mg tablet NGT SCH ×2 (09:24→17:34)
[2020-02-18] MEDS: carBAMazepine 200mg tab NG SCH ×3 (09:24→17:34)
[2020-02-18] MEDS: Aspirin Baby 81mg NG SCH (09:24)
[2020-02-18] MEDS: Cefepime HCl 1 GM in D5W 55 ML IVPB SCH ×2 (09:26→20:19)
[2020-02-18] MEDS: Lacri-Lube Opth Oint 3.5gm BOTH EYES SCH ×3 (09:26→17:34)
--- NOTE | 2020-02-18 10:52 | General Progress Note ---
Assessment/Plan Problem List: (1) Seizure disorder ICD Codes: G40.909 - Epilepsy, unspecified, not intractable,without status epilepticus SNOMED: 537177150 (2) Pulmonary hypertension ICD Codes: I27.20 - Pulmonary hypertension, unspecified SNOMED: 17428453 (3) Respiratory failure ICD Codes: J96.90 - Respiratory failure, unspecified, unspecified whether with hypoxia or hypercapnia SNOMED: 764314599 Qualifiers: Qualified Codes: J96.01 - Acute respiratory failure with hypoxia (4) Severe sepsis ICD Codes: A41.9 - Sepsis, unspecified organism; R65.20 - Severe sepsis without septic shock SNOMED: 50100294 (5) NSTEMI (non-ST elevated myocardial infarction) ICD Codes: I21.4 - Non-ST elevation (NSTEMI) myocardial infarction SNOMED: 87525513 (6) Fever ICD Codes: R50.9 - Fever, unspecified SNOMED: 517765999 (7) Dyspnea ICD Codes: R06.00 - Dyspnea, unspecified SNOMED: 188472628 Status: stable, not improved Assessment/Plan: cont vent support wean per pulm hold sedation unless needed sz rx Neuro eval- unable to find consulting neuro check eeg iv abx per ID follow up cultures monitor labs replace lytes as needed dvt/stress ulcer prophylaxis tube feeds turn q2 Subjective ROS Limited/Unobtainable: Yes Constitutional: Reports: malaise, weakness HEENT: Reports: no symptoms Cardiovascular: Reports: no symptoms Respiratory: Reports: cough, shortness of breath, sputum Gastrointestinal/Abdominal: Reports: difficulty swallowing Genitourinary: Reports: no symptoms Neurologic/Psychiatric: Reports: pre-existing deficit, seizure Endocrine: Reports: no symptoms Hematologic/Lymphatic: Reports: anemia Allergies: Coded Allergies: PENICILLINS (Verified Allergy, Severe, 08/07/12) FISH CONTAINING PRODUCTS (Verified Allergy, Unknown, 06/02/18) Uncoded Allergies: seafood (Allergy, Unknown, 06/02/18) All Systems: reviewed and negative except above Subjective no events. stable on the vent. fio2 down to 30%. no secretions. tolerating feeds. no szs. off sedation. still lethargic. blood cultures with gram positive rods. Objective Last 24 Hour Vital Signs Date Time Temp Pulse Resp B/P (MAP) Pulse Ox O2 Delivery O2 Flow Rate FiO2 02/18/20 10:00 111 23 152/84 (106) 100 02/18/20 09:24 73 138/73 02/18/20 09:00 101 15 111/72 (85) 100 02/18/20 08:49 98 17 30 02/18/20 08:00 Mechanical Ventilator 02/18/20 08:00 100.1 105 16 130/81 (97) 100 02/18/20 08:00 30 02/18/20 07:09 113 17 30 02/18/20 07:00 110 19 120/73 (89) 100 02/18/20 06:30 114 22 02/18/20 06:00 120 23 132/85 (101) 100 02/18/20 05:00 123 28 131/83 (99) 100 02/18/20 04:00 30 02/18/20 04:00 99.0 125 16 161/95 (117) 100 02/18/20 04:00 Mechanical Ventilator 02/18/20 03:43 126 15 30 02/18/20 03:05 113 02/18/20 03:00 114 20 115/68 (84) 100 02/18/20 02:00 127 25 136/90 (105) 100 02/18/20 01:00 129 24 145/94 (111) 100 02/18/20 00:00 30 02/18/20 00:00 Mechanical Ventilator 02/18/20 00:00 98.9 123 23 138/87 (104) 100 02/17/20 23:58 123 17 30 02/17/20 23:00 115 02/17/20 23:00 117 21 117/64 (81) 100 02/17/20 22:00 121 22 124/75 (91) 100 02/17/20 21:00 118 22 117/68 (84) 100 02/17/20 20:00 Mechanical Ventilator 02/17/20 20:00 98.9 109 18 115/55 (75) 100 02/17/20 20:00 30 02/17/20 19:53 111 24 30 02/17/20 19:49 110 02/17/20 19:00 109 23 102/54 (70) 99 02/17/20 18:00 102 18 103/64 (77) 97 02/17/20 17:00 103 21 107/65 (79) 97 02/17/20 16:39 105 25 30 02/17/20 16:00 98.6 88 19 107/71 (83) 100 02/17/20 16:00 Mechanical Ventilator 02/17/20 16:00 89 02/17/20 16:00 30 02/17/20 15:00 81 16 108/68 (81) 100 02/17/20 14:59 83 17 30 02/17/20 14:00 83 16 106/66 (79) 02/17/20 13:00 80 15 108/64 (79) 99 02/17/20 12:51 80 16 30 02/17/20 12:00 Mechanical Ventilator 02/17/20 12:00 98.0 76 16 107/64 (78) 93 02/17/20 12:00 76 02/17/20 12:00 30 02/17/20 11:15 73 20 30 02/17/20 11:00 73 11 101/72 (82) 93 Intake and Output 02/17/20 02/18/20 19:00 07:00 Intake Total 1793 ml 2131.664 ml Output Total 460 ml 370 ml Balance 1333 ml 1761.664 ml Free Water 90 ml 90 ml IV Total 1463 ml 1801.664 ml Tube Feeding 240 ml 240 ml Output Urine Total 460 ml 370 ml # Bowel Movements 7 1 Laboratory Tests 02/18/20 04:15: White Blood Count 10.9H, Red Blood Count 3.41L, Hemoglobin 10.6L, Hematocrit 32.7L, Mean Corpuscular Volume 96, Mean Corpuscular Hemoglobin 31.0, Mean Corpuscular Hemoglobin Concent 32.4, Red Cell Distribution Width 12.2, Platelet Count 127L, Mean Platelet Volume 9.8, Neutrophils (%) (Auto) 75.2H, Lymphocytes (%) (Auto) 12.2L, Monocytes (%) (Auto) 12.1H, Eosinophils (%) (Auto) 0.0, Basophils (%) (Auto) 0.5, Sodium Level 136, Potassium Level 3.9, Chloride Level 107, Carbon Dioxide Level 20L, Anion Gap 9, Blood Urea Nitrogen 13, Creatinine 0.9, Estimat Glomerular Filtration Rate > 60, Glucose Level 129H, Calcium Level 8.2L, Total Bilirubin 1.1H, Direct Bilirubin 0.6H, Aspartate Amino Transf (AST/ SGOT) 45H, Alanine Aminotransferase (ALT/SGPT) 43, Alkaline Phosphatase 187H, Total Protein 6.5, Albumin 2.1L, Globulin 4.4, Albumin/Globulin Ratio 0.5L Height (Feet): 5 Height (Inches): 5.00 Weight (Pounds): 113 Objective General Appearance: WD/WN, confused EENT: PERRL/EOMI, normal ENT inspection Neck: non-tender, normal alignment Cardiovascular: normal peripheral pulses, normal rate Respiratory/Chest: chest wall non-tender, lungs clear, normal breath sounds Abdomen: normal bowel sounds, non tender Edema: no edema noted Arm (L), no edema noted Arm (R) Neurologic: disoriented, unresponsive Skin: normal pigmentation Lymphatic: normal anterior cervical (L), normal anterior cervical (R) Liborio Dugan MD Feb 18, 2020 10:52
[2020-02-18] MEDS: Acetaminophen 650mg/20.3ml NG PRN (14:00)
[2020-02-19] VITALS (26 sets, daily range): BP systolic 80–133; BP diastolic 43–74
[2020-02-19] MEDS: Acetaminophen 650mg/20.3ml NG PRN ×2 (00:15→21:04)
--- NOTE | 2020-02-19 02:59 | Cardiology Progress Note ---
Subjective DATE OF SERVICE: Feb 18, 2020 On vent support - 30% FIO2 BP had stabilized, but dropped again late tonite. Still with fever spikes Sedated Monitor: sinus tachycardia and sinus rhythm Troponin levels trending down. Objective Last 24 Hour Vital Signs Date Time Temp Pulse Resp B/P (MAP) Pulse Ox O2 Delivery O2 Flow Rate FiO2 02/19/20 02:30 92 18 95/59 (71) 99 02/19/20 02:09 91 21 93/57 (69) 87 02/19/20 02:00 91 6 83/43 (56) 99 02/19/20 01:33 87 15 30 02/19/20 01:00 91 11 101/56 (71) 98 02/19/20 00:45 100.6 02/19/20 00:00 30 02/19/20 00:00 100.8 90 12 104/53 (70) 100 02/19/20 00:00 82 02/19/20 00:00 Mechanical Ventilator 02/18/20 23:15 83 15 30 02/18/20 23:00 83 14 95/54 (68) 100 02/18/20 22:00 84 7 110/54 (72) 100 02/18/20 21:47 83 19 30 02/18/20 21:00 89 12 110/60 (77) 98 02/18/20 20:20 87 115/59 02/18/20 20:00 Mechanical Ventilator 02/18/20 20:00 30 02/18/20 20:00 85 02/18/20 20:00 99.2 90 17 130/65 (86) 96 02/18/20 19:51 81 16 30 02/18/20 19:00 90 19 122/62 (82) 96 02/18/20 18:00 81 16 104/51 (68) 99 02/18/20 17:28 86 18 30 02/18/20 17:00 81 19 99/56 (70) 99 02/18/20 16:00 85 02/18/20 16:00 Mechanical Ventilator 02/18/20 16:00 100.0 85 16 109/56 (73) 100 02/18/20 16:00 30 02/18/20 15:00 84 19 116/64 (81) 100 02/18/20 14:46 83 19 30 02/18/20 14:00 89 16 96/57 (70) 99 8/22/20 13:00 100 12 123/75 (91) 97 02/18/20 12:49 103 19 30 02/18/20 12:00 Mechanical Ventilator 02/18/20 12:00 99.8 88 16 112/62 (79) 99 02/18/20 12:00 93 02/18/20 12:00 30 02/18/20 11:00 84 16 102/57 (72) 100 02/18/20 10:39 92 15 30 02/18/20 10:00 111 23 152/84 (106) 100 02/18/20 09:24 73 138/73 02/18/20 09:00 101 15 111/72 (85) 100 02/18/20 08:49 98 17 30 02/18/20 08:00 Mechanical Ventilator 02/18/20 08:00 100.1 105 16 130/81 (97) 100 02/18/20 08:00 114 02/18/20 08:00 30 02/18/20 07:09 113 17 30 02/18/20 07:00 110 19 120/73 (89) 100 02/18/20 06:30 114 22 02/18/20 06:00 120 23 132/85 (101) 100 02/18/20 05:00 123 28 131/83 (99) 100 02/18/20 04:00 30 02/18/20 04:00 99.0 125 16 161/95 (117) 100 02/18/20 04:00 Mechanical Ventilator 02/18/20 03:43 126 15 30 02/18/20 03:05 113 02/18/20 03:00 114 20 115/68 (84) 100 ROS: no change from my evaluation on 02/14/20 HEENT: Orally intubated RHYTHM: ST LUNGS: bilateral rhonchi CARDIAC: regular rhythm, normal S1 and S2, rapid rate, tachycardia ABDOMEN: normal bowel sounds, non tender, soft EXTREMITIES: non-tender, trace edema Laboratory Tests Test 02/18/20 04:15 White Blood Count 10.9 K/UL (4.8-10.8) H Red Blood Count 3.41 M/UL (4.20-5.40) L Hemoglobin 10.6 G/DL (12.0-16.0) L Hematocrit 32.7 % (37.0-47.0) L Mean Corpuscular Volume 96 FL (80-99) Mean Corpuscular Hemoglobin 31.0 PG (27.0-31.0) Mean Corpuscular Hemoglobin Concent 32.4 G/DL (32.0-36.0) Red Cell Distribution Width 12.2 % (11.6-14.8) Platelet Count 127 K/UL (150-450) L Mean Platelet Volume 9.8 FL (6.5-10.1) Neutrophils (%) (Auto) 75.2 % (45.0-75.0) H Lymphocytes (%) (Auto) 12.2 % (20.0-45.0) L Monocytes (%) (Auto) 12.1 % (1.0-10.0) H Eosinophils (%) (Auto) 0.0 % (0.0-3.0) Basophils (%) (Auto) 0.5 % (0.0-2.0) Sodium Level 136 MMOL/L (136-145) Potassium Level 3.9 MMOL/L (3.5-5.1) Chloride Level 107 MMOL/L (98-107) Carbon Dioxide Level 20 MMOL/L (21-32) L Anion Gap 9 mmol/L (5-15) Blood Urea Nitrogen 13 mg/dL (7-18) Creatinine 0.9 MG/DL (0.55-1.30) Estimat Glomerular Filtration Rate > 60 mL/min (>60) Glucose Level 129 MG/DL (74-106) H Calcium Level 8.2 MG/DL (8.5-10.1) L Total Bilirubin 1.1 MG/DL (0.2-1.0) H Direct Bilirubin 0.6 MG/DL (0.0-0.3) H Aspartate Amino Transf (AST/SGOT) 45 U/L (15-37) H Alanine Aminotransferase (ALT/SGPT) 43 U/L (12-78) Alkaline Phosphatase 187 U/L (46-116) H Total Protein 6.5 G/DL (6.4-8.2) Albumin 2.1 G/DL (3.4-5.0) L Globulin 4.4 g/dL Albumin/Globulin Ratio 0.5 (1.0-2.7) L Microbiology Date/Time Source Procedure Growth Status 8/20/20 14:20 Sputum Gram Stain - Final Resulted 02/16/20 14:20 Sputum Culture - Preliminary Gram Negative Bacillus 1 Gram Negative Bacillus 2 Resulted 02/16/20 03:00 Nasopharynx SARS-CoV-2 RdRp Gene Assay - Final Complete Assessment/Plan Assessment/Plan Respiratory Failure UTI Sepsis with shock Acute myocardial infarction (NSTE) Neurofibromatosis Hypokalemia Hypomagnesemia Hypovolemia Pulmonary Hypertension Aspiration PNA Fluid challenge; hope to avoid pressors. Vent support - wean anti-plt rx and anticoagulation for now Anti-microbials per ID Beta blockade with hold parameters for low BP. Maintain IVF Anti-pyretics Resp rx Marcus Main MD Feb 19, 2020 02:59
[2020-02-19] MEDS ORDERED: Sodium Chloride 550 ML IV SCH ×2 (03:00→13:30)
[2020-02-19] MEDS ORDERED: NS w/KCl 20mEq 1000ml 1,000 ML IV SCH (04:00)
[2020-02-19] MEDS: NS w/KCl 20mEq 1000ml 1,000 ML IV SCH ×3 (04:10→23:49)
[2020-02-19] MEDS: Vancomycin 750mg/D5W 275ml IVPB SCH ×2 (05:02)
[2020-02-19 05:49] LABS: BASOPHILS % (AUTO) 0.7 % (0.0-2.0); EOSINOPHILS % (AUTO) 0.4 % (0.0-3.0); HEMATOCRIT 28.2 % (37.0-47.0); HEMOGLOBIN 9.1 G/DL (12.0-16.0); LYMPHOCYTES % (AUTO) 13.5 % (20.0-45.0); MEAN CORPUSCULAR VOLUME 97 FL (80-99); MONOCYTES % (AUTO) 14.6 % (1.0-10.0); NEUTROPHILS % (AUTO) 70.7 % (45.0-75.0); PLATELET COUNT 118 K/UL (150-450); RED BLOOD COUNT 2.92 M/UL (4.20-5.40); RED CELL DISTRIBUTION WIDTH 12.4 % (11.6-14.8); WHITE BLOOD COUNT 6.4 K/UL (4.8-10.8)
[2020-02-19 06:47] LABS: ANION GAP 10 mmol/L (5-15); BLOOD UREA NITROGEN 17 mg/dL (7-18); CALCIUM 8.1 MG/DL (8.5-10.1); CARBON DIOXIDE 20 MMOL/L (21-32); CHLORIDE 107 MMOL/L (98-107); POTASSIUM 3.8 MMOL/L (3.5-5.1); SODIUM 137 MMOL/L (136-145)
--- NOTE | 2020-02-19 08:10 | General Progress Note ---
Assessment/Plan Problem List: (1) Seizure disorder ICD Codes: G40.909 - Epilepsy, unspecified, not intractable,without status epilepticus SNOMED: 092130626 (2) Pulmonary hypertension ICD Codes: I27.20 - Pulmonary hypertension, unspecified SNOMED: 70393344 (3) Respiratory failure ICD Codes: J96.90 - Respiratory failure, unspecified, unspecified whether with hypoxia or hypercapnia SNOMED: 692861825 Qualifiers: Qualified Codes: J96.01 - Acute respiratory failure with hypoxia (4) Severe sepsis ICD Codes: A41.9 - Sepsis, unspecified organism; R65.20 - Severe sepsis without septic shock SNOMED: 41666177 (5) NSTEMI (non-ST elevated myocardial infarction) ICD Codes: I21.4 - Non-ST elevation (NSTEMI) myocardial infarction SNOMED: 43054038 (6) Fever ICD Codes: R50.9 - Fever, unspecified SNOMED: 850789770 (7) Dyspnea ICD Codes: R06.00 - Dyspnea, unspecified SNOMED: 809853968 Status: stable, not improved Assessment/Plan: cont vent support resp care suctioning as needed add iv keppra await eeg tube feeds add reglan for high residuals eliquis check iron studies and stool ob remains guarded Subjective ROS Limited/Unobtainable: Yes Constitutional: Reports: malaise, weakness HEENT: Reports: no symptoms Cardiovascular: Reports: no symptoms Respiratory: Reports: shortness of breath, sputum Gastrointestinal/Abdominal: Reports: difficulty swallowing Genitourinary: Reports: no symptoms Neurologic/Psychiatric: Reports: pre-existing deficit, seizure Endocrine: Reports: no symptoms Hematologic/Lymphatic: Reports: no symptoms Allergies: Coded Allergies: PENICILLINS (Verified Allergy, Severe, 08/07/12) FISH CONTAINING PRODUCTS (Verified Allergy, Unknown, 06/02/18) Uncoded Allergies: seafood (Allergy, Unknown, 06/02/18) All Systems: reviewed and negative except above Subjective no change. s/p eeg- ?szs. poorly responsive and difficult to arouse. off sedation. high residuals. decreased h/h noted. no reports of bleeding. Objective Last 24 Hour Vital Signs Date Time Temp Pulse Resp B/P (MAP) Pulse Ox O2 Delivery O2 Flow Rate FiO2 02/19/20 07:13 93 17 30 02/19/20 06:30 85 12 02/19/20 06:00 88 12 104/66 (79) 99 02/19/20 05:08 91 15 30 02/19/20 05:00 92 17 114/66 (82) 97 02/19/20 04:00 99.0 93 19 122/73 (89) 100 02/19/20 04:00 93 02/19/20 04:00 30 02/19/20 04:00 Mechanical Ventilator 02/19/20 03:01 89 14 100 Mechanical Ventilator 30 02/19/20 03:00 88 16 80/52 (61) 100 02/19/20 03:00 91 14 30 02/19/20 02:30 92 18 95/59 (71) 99 02/19/20 02:09 91 21 93/57 (69) 87 02/19/20 02:00 91 6 83/43 (56) 99 02/19/20 01:33 87 15 30 02/19/20 01:00 91 11 101/56 (71) 98 02/19/20 00:45 100.6 02/19/20 00:00 30 02/19/20 00:00 100.8 90 12 104/53 (70) 100 02/19/20 00:00 82 02/19/20 00:00 Mechanical Ventilator 02/18/20 23:15 83 15 30 02/18/20 23:00 83 14 95/54 (68) 100 02/18/20 22:00 84 7 110/54 (72) 100 02/18/20 21:47 83 19 30 02/18/20 21:00 89 12 110/60 (77) 98 02/18/20 20:20 87 115/59 02/18/20 20:00 Mechanical Ventilator 02/18/20 20:00 30 02/18/20 20:00 85 02/18/20 20:00 99.2 90 17 130/65 (86) 96 02/18/20 19:51 81 16 30 02/18/20 19:00 90 19 122/62 (82) 96 02/18/20 18:00 81 16 104/51 (68) 99 02/18/20 17:28 86 18 30 02/18/20 17:00 81 19 99/56 (70) 99 02/18/20 16:00 85 02/18/20 16:00 Mechanical Ventilator 02/18/20 16:00 100.0 85 16 109/56 (73) 100 02/18/20 16:00 30 02/18/20 15:00 84 19 116/64 (81) 100 02/18/20 14:46 83 19 30 02/18/20 14:00 89 16 96/57 (70) 99 02/18/20 13:00 100 12 123/75 (91) 97 02/18/20 12:49 103 19 30 02/18/20 12:00 Mechanical Ventilator 02/18/20 12:00 99.8 88 16 112/62 (79) 99 02/18/20 12:00 93 02/18/20 12:00 30 02/18/20 11:00 84 16 102/57 (72) 100 02/18/20 10:39 92 15 30 02/18/20 10:00 111 23 152/84 (106) 100 02/18/20 09:24 73 138/73 02/18/20 09:00 101 15 111/72 (85) 100 02/18/20 08:49 98 17 30 Intake and Output 02/18/20 02/19/20 19:00 07:00 Intake Total 1391.333 ml 1737.499 ml Output Total 735 ml 365 ml Balance 656.333 ml 1372.499 ml Free Water 80 ml IV Total 1031.333 ml 1537.499 ml Tube Feeding 280 ml 200 ml Output Urine Total 735 ml 365 ml Laboratory Tests 02/19/20 04:15: White Blood Count 6.4, Red Blood Count 2.92L, Hemoglobin 9.1L, Hematocrit 28.2L , Mean Corpuscular Volume 97, Mean Corpuscular Hemoglobin 31.2H, Mean Corpuscular Hemoglobin Concent 32.3, Red Cell Distribution Width 12.4, Platelet Count 118L, Mean Platelet Volume 9.7, Neutrophils (%) (Auto) 70.7, Lymphocytes ( %) (Auto) 13.5L, Monocytes (%) (Auto) 14.6H, Eosinophils (%) (Auto) 0.4, Basophils (%) (Auto) 0.7, Sodium Level 137, Potassium Level 3.8, Chloride Level 107, Carbon Dioxide Level 20L, Anion Gap 10, Blood Urea Nitrogen 17, Creatinine 1.0, Estimat Glomerular Filtration Rate > 60, Glucose Level 127H, Calcium Level 8.1L, Magnesium Level 2.0, Troponin I 0.118H, Pro-B-Type Natriuretic Peptide 48787P, Thyroid Stimulating Hormone (TSH) 0.791 Height (Feet): 5 Height (Inches): 5.00 Weight (Pounds): 121 Objective General Appearance: WD/WN, confused EENT: PERRL/EOMI, normal ENT inspection Neck: non-tender, normal alignment Cardiovascular: normal peripheral pulses, normal rate Respiratory/Chest: chest wall non-tender, lungs clear, normal breath sounds Abdomen: normal bowel sounds, non tender Edema: no edema noted Arm (L), no edema noted Arm (R) Neurologic: disoriented, unresponsive Skin: normal pigmentation Lymphatic: normal anterior cervical (L), normal anterior cervical (R) Liborio Dugan MD Feb 19, 2020 08:10
[2020-02-19] MEDS: Lacri-Lube Opth Oint 3.5gm BOTH EYES SCH ×3 (08:49→17:26)
[2020-02-19] MEDS: Aspirin Baby 81mg NG SCH (08:51)
[2020-02-19] MEDS: Cefepime HCl 1 GM in D5W 55 ML IVPB SCH ×2 (08:51→21:03)
[2020-02-19] MEDS: carBAMazepine 200mg tab NG SCH ×3 (08:52→17:26)
[2020-02-19] MEDS: Eliquis 5mg tablet NGT SCH ×2 (08:54→17:27)
[2020-02-19] MEDS: Revatio 20mg tab ORAL SCH ×3 (08:55→17:27)
[2020-02-19] MEDS: SELEXIPAG ORAL SCH ×3 (08:55→17:27)
[2020-02-19] MEDS: OPSUMIT 10 MG ORAL SCH (08:55)
[2020-02-19] MEDS: levETIRAcetam 1,000mg/NS100ml 100 ML IVPB SCH ×2 (09:11→21:03)
--- NOTE | 2020-02-19 10:04 | Diagnostic Imaging Report ---
EXAM: XR Chest, 1 View CLINICAL HISTORY: F/U TECHNIQUE: Frontal view of the chest. COMPARISON: Chest x-ray 02/15/20 FINDINGS: Lungs: Left lower lung atelectasis/consolidation, slightly worsened. Mild right lower lung atelectasis/airspace disease. Pleural space: Tiny bilateral pleural effusions. No pneumothorax. Heart: Unremarkable. No cardiomegaly. Mediastinum: Unremarkable. Bones/joints: Unremarkable. Tubes, lines and devices: Endotracheal tube and NG tube are stable. Upper abdomen: Elevated left hemidiaphragm. IMPRESSION: 1. Left lower lung atelectasis/consolidation, slightly worsened. Mild right lower lung atelectasis/airspace disease. 2. Tiny bilateral pleural effusions.
--- NOTE | 2020-02-19 11:21 | Pulmonolgy Critical Care Note ---
Critical Care - Asmt/Plan Assessment/Plan: Pulmonary CCM Progress Note Assessment/Plan Assessment/Plan respiratory failure pneumonia UTI pulmonary hypertension elevated troponin possible NSTEMI paraplegia hypoxemia seizure history brain masses, chronic moderate PCM On Reglan for high residuals PLAN care noted IV antibiotics noted and cultures reviewed respiratory care and nursing care noted Ventilatory support - wean as tolerated retry wean no sedation as able monitor acid base and adjust supportive care suction as needed monitor heart rate await improvement in heart rate seizure meds prognosis improved medications/laboratory data/nursing notes/ICU care reviewed in detail note reviewed and edited care discussed with RN and RT ICU time spent >40 minutes Critical Care - Subjective Interval Events: weaning astolerated no distress on cara ICU care overnight reviewed ROS Limited/Unobtainable: Yes Condition: critical EKG Rhythm: Sinus Tachycardia Residuals: minimal Tube Feeding Tolerated: yes Vital Signs Noted Labs: Noted Objective: WDWN NAD on vent clear breath sounds bilaterally without rhonchi or wheeze [id number] without MRG NABS nontender no HSM no CCE nonfocal poor LOC reduced ROM skin noted reviewed and edited feeding tube in place Critical Care - Objective Last 24 Hour Vital Signs Date Time Temp Pulse Resp B/P (MAP) Pulse Ox O2 Delivery O2 Flow Rate FiO2 02/19/20 10:00 96 14 117/64 (81) 100 02/19/20 09:00 94 17 125/74 (91) 98 02/19/20 08:59 97 18 30 02/19/20 08:54 94 115/69 02/19/20 08:00 Mechanical Ventilator 02/19/20 08:00 30 02/19/20 08:00 98.6 94 17 115/73 (87) 100 02/19/20 07:13 93 17 30 02/19/20 07:00 97 19 133/72 (92) 100 02/19/20 06:30 85 12 02/19/20 06:00 88 12 104/66 (79) 99 02/19/20 05:08 91 15 30 02/19/20 05:00 92 17 114/66 (82) 97 02/19/20 04:00 99.0 93 19 122/73 (89) 100 02/19/20 04:00 93 02/19/20 04:00 30 02/19/20 04:00 Mechanical Ventilator 02/19/20 03:01 89 14 100 Mechanical Ventilator 30 02/19/20 03:00 88 16 80/52 (61) 100 02/19/20 03:00 91 14 30 02/19/20 02:30 92 18 95/59 (71) 99 02/19/20 02:09 91 21 93/57 (69) 87 02/19/20 02:00 91 6 83/43 (56) 99 02/19/20 01:33 87 15 30 02/19/20 01:00 91 11 101/56 (71) 98 02/19/20 00:45 100.6 02/19/20 00:00 30 02/19/20 00:00 100.8 90 12 104/53 (70) 100 02/19/20 00:00 82 02/19/20 00:00 Mechanical Ventilator 02/18/20 23:15 83 15 30 02/18/20 23:00 83 14 95/54 (68) 100 02/18/20 22:00 84 7 110/54 (72) 100 02/18/20 21:47 83 19 30 02/18/20 21:00 89 12 110/60 (77) 98 02/18/20 20:20 87 115/59 02/18/20 20:00 Mechanical Ventilator 02/18/20 20:00 30 02/18/20 20:00 85 02/18/20 20:00 99.2 90 17 130/65 (86) 96 02/18/20 19:51 81 16 30 02/18/20 19:00 90 19 122/62 (82) 96 02/18/20 18:00 81 16 104/51 (68) 99 02/18/20 17:28 86 18 30 02/18/20 17:00 81 19 99/56 (70) 99 02/18/20 16:00 85 02/18/20 16:00 Mechanical Ventilator 02/18/20 16:00 100.0 85 16 109/56 (73) 100 02/18/20 16:00 30 02/18/20 15:00 84 19 116/64 (81) 100 02/18/20 14:46 83 19 30 02/18/20 14:00 89 16 96/57 (70) 99 02/18/20 13:00 100 12 123/75 (91) 97 02/18/20 12:49 103 19 30 8/22/20 12:00 Mechanical Ventilator 02/18/20 12:00 99.8 88 16 112/62 (79) 99 02/18/20 12:00 93 02/18/20 12:00 30 Micro: Microbiology Date/Time Source Procedure Growth Status 02/16/20 14:20 Sputum Gram Stain - Final Resulted 02/16/20 14:20 Sputum Culture - Preliminary Gram Negative Bacillus 1 Gram Negative Bacillus 2 Resulted Critical Care - Subjective ROS Limited/Unobtainable: Yes Condition: stable FI02: 30 Vent Support Breath Rate: 12 Vent Support Mode: AC Vent Tidal Volume: 450 Sputum Amount: Small PEEP: 5.0 PIP: 30 Tube Feeding Amount: 20 I&O: Intake and Output 02/18/20 02/19/20 19:00 07:00 Intake Total 1391.333 ml 1737.499 ml Output Total 735 ml 365 ml Balance 656.333 ml 1372.499 ml Free Water 80 ml IV Total 1031.333 ml 1537.499 ml Tube Feeding 280 ml 200 ml Output Urine Total 735 ml 365 ml ET-Tube: 7.0 ET Position: 23 Marcus Campbell MD Feb 19, 2020 11:21
--- NOTE | 2020-02-19 12:13 | Infectious Diseases Prog Note ---
Assessment/Plan Assessment/Plan A 1. pneumonia COVID19 X2: negative 2. Hypoxic respiratory failure 3. neurofibromatosis 4. seizures 5. pulmonary hypertension 6. Sepsis 7. Non ST elevation [place] 7 Deaf& blind P 1. Discontinue iv vancomycin, 2. Continue cefepime 3. Will f/u sputum culture 4. Case was D/W RN & microbiology Subjective ROS Limited/Unobtainable: Yes Constitutional: Reports: fever, other - Mk=543.8 Respiratory: Reports: other - failed weaning Allergies: Coded Allergies: PENICILLINS (Verified Allergy, Severe, 08/07/12) FISH CONTAINING PRODUCTS (Verified Allergy, Unknown, 06/02/18) Uncoded Allergies: seafood (Allergy, Unknown, 06/02/18) Objective Last 24 Hour Vital Signs Date Time Temp Pulse Resp B/P (MAP) Pulse Ox O2 Delivery O2 Flow Rate FiO2 02/19/20 12:00 Mechanical Ventilator 02/19/20 12:00 99.4 91 14 105/61 (76) 100 02/19/20 12:00 30 02/19/20 11:02 87 14 30 02/19/20 11:00 88 14 121/67 (85) 100 02/19/20 10:00 96 14 117/64 (81) 100 02/19/20 09:00 94 17 125/74 (91) 98 02/19/20 08:59 97 18 30 02/19/20 08:54 94 115/69 02/19/20 08:00 Mechanical Ventilator 02/19/20 08:00 30 02/19/20 08:00 98.6 94 17 115/73 (87) 100 02/19/20 07:13 93 17 30 02/19/20 07:00 97 19 133/72 (92) 100 02/19/20 06:30 85 12 02/19/20 06:00 88 12 104/66 (79) 99 02/19/20 05:08 91 15 30 02/19/20 05:00 92 17 114/66 (82) 97 02/19/20 04:00 99.0 93 19 122/73 (89) 100 02/19/20 04:00 93 02/19/20 04:00 30 02/19/20 04:00 Mechanical Ventilator 02/19/20 03:01 89 14 100 Mechanical Ventilator 30 02/19/20 03:00 88 16 80/52 (61) 100 02/19/20 03:00 91 14 30 02/19/20 02:30 92 18 95/59 (71) 99 02/19/20 02:09 91 21 93/57 (69) 87 02/19/20 02:00 91 6 83/43 (56) 99 02/19/20 01:33 87 15 30 02/19/20 01:00 91 11 101/56 (71) 98 02/19/20 00:45 100.6 02/19/20 00:00 30 02/19/20 00:00 100.8 90 12 104/53 (70) 100 02/19/20 00:00 82 02/19/20 00:00 Mechanical Ventilator 02/18/20 23:15 83 15 30 02/18/20 23:00 83 14 95/54 (68) 100 02/18/20 22:00 84 7 110/54 (72) 100 02/18/20 21:47 83 19 30 02/18/20 21:00 89 12 110/60 (77) 98 02/18/20 20:20 87 115/59 02/18/20 20:00 Mechanical Ventilator 02/18/20 20:00 30 02/18/20 20:00 85 02/18/20 20:00 99.2 90 17 130/65 (86) 96 02/18/20 19:51 81 16 30 02/18/20 19:00 90 19 122/62 (82) 96 02/18/20 18:00 81 16 104/51 (68) 99 02/18/20 17:28 86 18 30 02/18/20 17:00 81 19 99/56 (70) 99 02/18/20 16:00 85 02/18/20 16:00 Mechanical Ventilator 02/18/20 16:00 100.0 85 16 109/56 (73) 100 02/18/20 16:00 30 02/18/20 15:00 84 19 116/64 (81) 100 02/18/20 14:46 83 19 30 02/18/20 14:00 89 16 96/57 (70) 99 02/18/20 13:00 100 12 123/75 (91) 97 02/18/20 12:49 103 19 30 Height (Feet): 5 Height (Inches): 5.00 Weight (Pounds): 121 HEENT: other - orally intubated Respiratory/Chest: lungs clear, other - on ventilator Cardiovascular: normal rate Abdomen: soft, non tender, other - NG tube Extremities: other - edema Neurologic/Psychiatric: unresponsiveness Microbiology Date/Time Source Procedure Growth Status 02/16/20 14:20 Sputum Gram Stain - Final Resulted 02/16/20 14:20 Sputum Culture - Preliminary Gram Negative Bacillus 1 Gram Negative Bacillus 2 Resulted Laboratory Tests Test 02/19/20 04:15 02/19/20 08:05 White Blood Count 6.4 K/UL (4.8-10.8) Red Blood Count 2.92 M/UL (4.20-5.40) L Hemoglobin 9.1 G/DL (12.0-16.0) L Hematocrit 28.2 % (37.0-47.0) L Mean Corpuscular Volume 97 FL (80-99) Mean Corpuscular Hemoglobin 31.2 PG (27.0-31.0) H Mean Corpuscular Hemoglobin Concent 32.3 G/DL (32.0-36.0) Red Cell Distribution Width 12.4 % (11.6-14.8) Platelet Count 118 K/UL (150-450) L Mean Platelet Volume 9.7 FL (6.5-10.1) Neutrophils (%) (Auto) 70.7 % (45.0-75.0) Lymphocytes (%) (Auto) 13.5 % (20.0-45.0) L Monocytes (%) (Auto) 14.6 % (1.0-10.0) H Eosinophils (%) (Auto) 0.4 % (0.0-3.0) Basophils (%) (Auto) 0.7 % (0.0-2.0) Sodium Level 137 MMOL/L (136-145) Potassium Level 3.8 MMOL/L (3.5-5.1) Chloride Level 107 MMOL/L (98-107) Carbon Dioxide Level 20 MMOL/L (21-32) L Anion Gap 10 mmol/L (5-15) Blood Urea Nitrogen 17 mg/dL (7-18) Creatinine 1.0 MG/DL (0.55-1.30) Estimat Glomerular Filtration Rate > 60 mL/min (>60) Glucose Level 127 MG/DL (74-106) H Calcium Level 8.1 MG/DL (8.5-10.1) L Magnesium Level 2.0 MG/DL (1.8-2.4) Troponin I 0.118 ng/mL (0.000-0.056) Pro-B-Type Natriuretic Peptide 55128 pg/mL (0-125) H Thyroid Stimulating Hormone (TSH) 0.791 uiU/mL (0.358-3.740) Arterial Blood pH 7.357 (7.350-7.450) Arterial Blood Partial Pressure CO2 33.4 mmHg (35.0-45.0) L Arterial Blood Partial Pressure O2 82.2 mmHg (75.0-100.0) Arterial Blood HCO3 18.3 mmol/L (22.0-26.0) L Arterial Blood Oxygen Saturation 95.5 % (95-100) Arterial Blood Base Excess -6.4 (-2-2) L Jax Test Positive Current Medications Medications (Trade) Dose Ordered Sig/Brian Route PRN Reason Start Time Stop Time Status Last Admin Dose Admin Acetaminophen (Tylenol) 650 mg Q4H PRN NG Mild Pain (Pain Scale 1-3) 02/14/20 03:00 03/15/20 02:59 02/17/20 05:28 Acetaminophen (Tylenol) 650 mg Q4H PRN NG Temp >100.5 02/14/20 03:00 03/15/20 02:59 02/19/20 00:15 Al Hydroxide/Mg Hydroxide (Mylanta) 30 ml Q4H PRN ORAL Dyspepsia 02/14/20 03:00 03/15/20 02:59 Apixaban (Eliquis) 5 mg BID NGT 02/14/20 09:00 05/14/20 08:59 02/19/20 08:54 Artificial Tears (Lacri-Lube) 1 applic TID BOTH EYES 02/18/20 09:00 03/18/20 09:29 02/19/20 08:49 Aspirin (ASA) 81 mg DAILY NG 02/15/20 09:00 03/31/20 08:59 02/19/20 08:51 Carbamazepine (TEGretol) 200 mg TID NG 02/14/20 09:00 03/15/20 08:59 02/19/20 08:52 Cefepime HCl 1 gm/ Dextrose 55 ml @ 110 mls/hr EVERY 12 HOURS IVPB 02/14/20 11:30 02/21/20 11:29 02/19/20 08:51 Furosemide (Lasix) 20 mg DAILY IV 02/19/20 09:00 03/20/20 08:59 02/19/20 08:50 Gabapentin (Neurontin) 100 mg THREE TIMES A DAY ORAL 02/14/20 09:00 03/15/20 08:59 02/19/20 08:54 Lansoprazole (Prevacid) 30 mg DAILY NG 02/14/20 09:00 03/15/20 08:59 02/19/20 08:51 Levetiracetam 100 ml @ 400 mls/hr Q12HR IVPB 02/19/20 09:00 05/19/20 08:59 02/19/20 09:11 Lorazepam (Ativan 2mg/ml 1ml) 1 mg Q4H PRN IV For seizures 02/16/20 09:30 02/23/20 09:29 Metoclopramide HCl (Reglan) 5 mg Q6H PRN IVP Nausea & Vomiting 02/19/20 08:15 03/20/20 08:14 Metoprolol Tartrate (Lopressor) 25 mg Q12HR ORAL 02/15/20 21:00 05/15/20 20:59 02/19/20 08:54 Patient Own Medication (Patient's Own Med) 1 ea DAILY ORAL 02/14/20 13:00 03/15/20 12:59 02/19/20 08:55 Patient Own Medication (Patient's Own Med) 1 ea TID ORAL 02/14/20 13:00 03/15/20 12:59 02/19/20 08:55 Potassium Chloride/Sodium Chloride 1,000 ml @ 100 mls/hr Q10H IV 02/19/20 04:00 03/20/20 03:59 02/19/20 04:10 Sildenafil Citrate (Revatio) 20 mg TID ORAL 02/14/20 09:00 05/14/20 08:59 02/19/20 08:55 Vancomycin HCl (Vanco pharmacy to dose) 1 ea DAILY PRN MISC Per rx protocol 02/14/20 03:00 03/15/20 02:59 Vancomycin HCl 750 mg/Dextrose 275 ml @ 183.333 mls/hr Q8H IVPB 02/14/20 06:00 02/20/20 23:59 02/19/20 05:02 Guillaume Hernandez MD Feb 19, 2020 12:13
[2020-02-19] MEDS: Metoclopramide 10mg/2ml Inj IVP PRN (12:44)
[2020-02-19] MEDS ORDERED: NS 275ml ONE (14:18)
[2020-02-19] MEDS ORDERED: Tubing IV Secondary IV ONE (14:18)
--- NOTE | 2020-02-19 19:45 | Electroencephalogram ---
DATE OF PROCEDURE: 02/18/2020 REQUESTING PHYSICIAN: Liborio Dugan M.D. READING PHYSICIAN: Otoniel Ellis M.D. PROCEDURE PERFORMED: EEG. HISTORY: This EEG was performed on a 49-year-old lady with a prior history of epilepsy, who came in with severe sepsis. The purpose of this EEG was to evaluate the patient for the degree and type of cerebral dysfunction and to exclude ongoing ictal or interictal phenomena. TECHNICAL NOTE: This EEG was performed on a [employer]om[employer] acquisition with electrodes placed on the scalp according to the International 10-20 system. [id number] and [id number] montages were used. The EEG was technically satisfactory and was performed while the patient was in a poorly responsive states. OBSERVATIONS: In the poorly responsive state, the background activity consisted of 4-5 Hz theta and 1.5-2 Hz delta activity. Triphasic waveforms with an anterior to posterior gradient were also seen. Right temporal sharp and slow wave discharges were also seen from time to time. In addition, right temporal polymorphic delta activity was noted. IMPRESSION: This is an abnormal EEG characterized by: 1. Slowing of the background in the theta and delta range in the poorly responsive state. 2. The presence of triphasic waveforms seen throughout the tracing. 3. Right temporal polymorphic delta activity. 4. Right temporal sharp and slow wave discharges, phase-reversing, predominantly over the T4 electrode. COMMENT: This study is consistent with: 1. An encephalopathy of a moderate degree with a toxic metabolic component as evidenced by the triphasic waveforms. 2. Right temporal focal dysfunction. 3. A right temporal epileptogenic focus with phase reversals in the mid temporal region. Clinical correlation is recommended. Otoniel Ellis M.D., M.S.P.H. DR: TARAS JOB#: [id number]
--- NOTE | 2020-02-19 23:09 | Cardiology Progress Note ---
Subjective DATE OF SERVICE: Feb 19, 2020 On vent support - 30% FIO2; ABG 7.36/33/82 BP dropped again last nite; improved with fluid challenge. Still with fever spikes last night. Sedated Monitor: sinus tachycardia and sinus rhythm Troponin levels trending down. CXR (02/19/20) worsening infiltrate on left and persisting on right. Objective Last 24 Hour Vital Signs Date Time Temp Pulse Resp B/P (MAP) Pulse Ox O2 Delivery O2 Flow Rate FiO2 02/19/20 22:38 107 107/55 02/19/20 22:00 107 21 107/55 (72) 100 02/19/20 21:34 99.9 02/19/20 21:00 100.7 115 21 127/66 (86) 97 02/19/20 20:00 107 02/19/20 20:00 100.0 119 110/56 (74) 02/19/20 20:00 30 02/19/20 20:00 Mechanical Ventilator 02/19/20 19:13 115 20 30 02/19/20 19:00 97.5 114 12 113/64 (80) 100 02/19/20 18:00 111 12 124/55 (78) 100 02/19/20 17:01 106 20 30 02/19/20 17:00 105 12 113/64 (80) 96 02/19/20 16:00 Mechanical Ventilator 02/19/20 16:00 98.7 99 17 107/59 (75) 98 02/19/20 16:00 30 02/19/20 16:00 102 02/19/20 15:00 107 19 114/63 (80) 100 02/19/20 15:00 103 16 30 02/19/20 14:00 105 20 100/61 (74) 94 02/19/20 13:03 91 15 30 02/19/20 13:00 90 14 104/56 (72) 100 02/19/20 12:00 Mechanical Ventilator 02/19/20 12:00 99.4 91 14 105/61 (76) 100 02/19/20 12:00 90 02/19/20 12:00 30 02/19/20 11:02 87 14 30 02/19/20 11:00 88 14 121/67 (85) 100 02/19/20 10:00 96 14 117/64 (81) 100 02/19/20 09:00 94 17 125/74 (91) 98 02/19/20 08:59 97 18 30 02/19/20 08:54 94 115/69 02/19/20 08:00 94 02/19/20 08:00 Mechanical Ventilator 02/19/20 08:00 30 02/19/20 08:00 98.6 94 17 115/73 (87) 100 02/19/20 07:13 93 17 30 02/19/20 07:00 97 19 133/72 (92) 100 02/19/20 06:30 85 12 02/19/20 06:00 88 12 104/66 (79) 99 02/19/20 05:08 91 15 30 02/19/20 05:00 92 17 114/66 (82) 97 02/19/20 04:00 99.0 93 19 122/73 (89) 100 02/19/20 04:00 93 02/19/20 04:00 30 02/19/20 04:00 Mechanical Ventilator 02/19/20 03:01 89 14 100 Mechanical Ventilator 30 02/19/20 03:00 88 16 80/52 (61) 100 02/19/20 03:00 91 14 30 02/19/20 02:30 92 18 95/59 (71) 99 02/19/20 02:09 91 21 93/57 (69) 87 02/19/20 02:00 91 6 83/43 (56) 99 02/19/20 01:33 87 15 30 02/19/20 01:00 91 11 101/56 (71) 98 02/19/20 00:00 30 02/19/20 00:00 100.8 90 12 104/53 (70) 100 02/19/20 00:00 82 02/19/20 00:00 Mechanical Ventilator 02/18/20 23:15 83 15 30 ROS: no change from my evaluation on 02/14/20 HEENT: Orally intubated RHYTHM: ST LUNGS: bilateral rhonchi CARDIAC: regular rhythm, normal S1 and S2, rapid rate, tachycardia ABDOMEN: normal bowel sounds, non tender, soft EXTREMITIES: non-tender, trace edema Laboratory Tests Test 02/19/20 04:15 02/19/20 08:05 White Blood Count 6.4 K/UL (4.8-10.8) Red Blood Count 2.92 M/UL (4.20-5.40) L Hemoglobin 9.1 G/DL (12.0-16.0) L Hematocrit 28.2 % (37.0-47.0) L Mean Corpuscular Volume 97 FL (80-99) Mean Corpuscular Hemoglobin 31.2 PG (27.0-31.0) H Mean Corpuscular Hemoglobin Concent 32.3 G/DL (32.0-36.0) Red Cell Distribution Width 12.4 % (11.6-14.8) Platelet Count 118 K/UL (150-450) L Mean Platelet Volume 9.7 FL (6.5-10.1) Neutrophils (%) (Auto) 70.7 % (45.0-75.0) Lymphocytes (%) (Auto) 13.5 % (20.0-45.0) L Monocytes (%) (Auto) 14.6 % (1.0-10.0) H Eosinophils (%) (Auto) 0.4 % (0.0-3.0) Basophils (%) (Auto) 0.7 % (0.0-2.0) Sodium Level 137 MMOL/L (136-145) Potassium Level 3.8 MMOL/L (3.5-5.1) Chloride Level 107 MMOL/L (98-107) Carbon Dioxide Level 20 MMOL/L (21-32) L Anion Gap 10 mmol/L (5-15) Blood Urea Nitrogen 17 mg/dL (7-18) Creatinine 1.0 MG/DL (0.55-1.30) Estimat Glomerular Filtration Rate > 60 mL/min (>60) Glucose Level 127 MG/DL (74-106) H Calcium Level 8.1 MG/DL (8.5-10.1) L Magnesium Level 2.0 MG/DL (1.8-2.4) Troponin I 0.118 ng/mL (0.000-0.056) Pro-B-Type Natriuretic Peptide 84419 pg/mL (0-125) H Thyroid Stimulating Hormone (TSH) 0.791 uiU/mL (0.358-3.740) Arterial Blood pH 7.357 (7.350-7.450) Arterial Blood Partial Pressure CO2 33.4 mmHg (35.0-45.0) L Arterial Blood Partial Pressure O2 82.2 mmHg (75.0-100.0) Arterial Blood HCO3 18.3 mmol/L (22.0-26.0) L Arterial Blood Oxygen Saturation 95.5 % (95-100) Arterial Blood Base Excess -6.4 (-2-2) L Jax Test Positive Assessment/Plan Assessment/Plan Respiratory Failure UTI Sepsis with shock Acute myocardial infarction (NSTE) Neurofibromatosis Hypokalemia Hypomagnesemia Hypovolemia Pulmonary Hypertension Aspiration PNA Fluid challenge as needed; hope to avoid pressors. Vent support - wean anti-plt rx and anticoagulation for now Anti-microbials per ID Beta blockade with hold parameters for low BP. Maintain IVF Anti-pyretics Resp rx Recheck UA Marcus Main MD Feb 19, 2020 23:09
[2020-02-20] VITALS (25 sets, daily range): BP systolic 94–126; BP diastolic 51–81
[2020-02-20 06:54] LABS: BASOPHILS % (AUTO) 0.6 % (0.0-2.0); EOSINOPHILS % (AUTO) 0.4 % (0.0-3.0); HEMATOCRIT 31.5 % (37.0-47.0); HEMOGLOBIN 10.1 G/DL (12.0-16.0); LYMPHOCYTES % (AUTO) 11.3 % (20.0-45.0); MEAN CORPUSCULAR VOLUME 96 FL (80-99); MONOCYTES % (AUTO) 11.9 % (1.0-10.0); NEUTROPHILS % (AUTO) 75.9 % (45.0-75.0); PLATELET COUNT 186 K/UL (150-450); RED BLOOD COUNT 3.29 M/UL (4.20-5.40); RED CELL DISTRIBUTION WIDTH 12.3 % (11.6-14.8); WHITE BLOOD COUNT 6.8 K/UL (4.8-10.8)
[2020-02-20 07:29] LABS: % IRON SATURATION 11 % (15-50); IRON 53 ug/dL (50-175); TOTAL IRON BINDING CAPACITY 480 ug/dL (250-450)
[2020-02-20 07:32] LABS: ALANINE AMINOTRANSFERASE 49 U/L (12-78); ALBUMIN 1.7 G/DL (3.4-5.0); ALBUMIN/GLOBULIN RATIO 0.4 (1.0-2.7); ALKALINE PHOSPHATASE 198 U/L (46-116); ANION GAP 13 mmol/L (5-15); ASPARTATE AMINO TRANSFERASE 49 U/L (15-37); BILIRUBIN,TOTAL 0.6 MG/DL (0.2-1.0); BLOOD UREA NITROGEN 17 mg/dL (7-18); CALCIUM 8.1 MG/DL (8.5-10.1); CARBON DIOXIDE 18 MMOL/L (21-32); CHLORIDE 107 MMOL/L (98-107); CREATININE 0.9 MG/DL (0.55-1.30); POTASSIUM 4.4 MMOL/L (3.5-5.1); SODIUM 138 MMOL/L (136-145)
--- NOTE | 2020-02-20 07:51 | General Progress Note ---
Assessment/Plan Problem List: (1) Seizure disorder ICD Codes: G40.909 - Epilepsy, unspecified, not intractable,without status epilepticus SNOMED: 409988955 (2) Pulmonary hypertension ICD Codes: I27.20 - Pulmonary hypertension, unspecified SNOMED: 92032607 (3) Respiratory failure ICD Codes: J96.90 - Respiratory failure, unspecified, unspecified whether with hypoxia or hypercapnia SNOMED: 552027508 Qualifiers: Qualified Codes: J96.01 - Acute respiratory failure with hypoxia (4) Severe sepsis ICD Codes: A41.9 - Sepsis, unspecified organism; R65.20 - Severe sepsis without septic shock SNOMED: 95935795 (5) NSTEMI (non-ST elevated myocardial infarction) ICD Codes: I21.4 - Non-ST elevation (NSTEMI) myocardial infarction SNOMED: 52316026 (6) Fever ICD Codes: R50.9 - Fever, unspecified SNOMED: 567164809 (7) Dyspnea ICD Codes: R06.00 - Dyspnea, unspecified SNOMED: 688014108 Status: stable, not improved Assessment/Plan: cont vent support resp care suctioning as needed iv keppra neuro eval- unable to get neuro to see pt tube feeds reglan for high residuals eliquis check arterial duplex arms and legs remains guarded Subjective ROS Limited/Unobtainable: Yes Constitutional: Reports: malaise, weakness HEENT: Reports: no symptoms Cardiovascular: Reports: no symptoms Respiratory: Reports: cough, shortness of breath Gastrointestinal/Abdominal: Reports: difficulty swallowing Genitourinary: Reports: no symptoms Neurologic/Psychiatric: Reports: pre-existing deficit, seizure Endocrine: Reports: no symptoms Hematologic/Lymphatic: Reports: anemia Allergies: Coded Allergies: PENICILLINS (Verified Allergy, Severe, 08/07/12) FISH CONTAINING PRODUCTS (Verified Allergy, Unknown, 06/02/18) Uncoded Allergies: seafood (Allergy, Unknown, 06/02/18) All Systems: reviewed and negative except above Subjective no real change. poorly responsive. ?sz on EEG. started on keppra. unable to secure neurologist. no sign sof szs per RN. +edema. cool extremeties Objective Last 24 Hour Vital Signs Date Time Temp Pulse Resp B/P (MAP) Pulse Ox O2 Delivery O2 Flow Rate FiO2 02/20/20 06:30 97 12 02/20/20 06:00 101 19 120/80 (93) 02/20/20 05:00 97 17 119/74 (89) 100 02/20/20 04:00 30 02/20/20 04:00 101 02/20/20 04:00 Mechanical Ventilator 02/20/20 04:00 97.7 91 19 115/75 (88) 91 02/20/20 03:00 82 16 108/65 (79) 100 02/20/20 02:57 80 17 30 02/20/20 02:00 76 18 94/52 (66) 100 02/20/20 01:00 77 17 94/51 (65) 100 02/20/20 00:00 95 02/20/20 00:00 Mechanical Ventilator 02/20/20 00:00 30 02/20/20 00:00 98.8 88 19 124/75 (91) 02/19/20 23:08 106 21 30 02/19/20 23:01 106 19 116/60 (78) 100 02/19/20 22:38 107 107/55 02/19/20 22:00 107 21 107/55 (72) 100 02/19/20 21:34 99.9 02/19/20 21:00 100.7 115 21 127/66 (86) 97 02/19/20 20:00 107 02/19/20 20:00 100.0 119 110/56 (74) 02/19/20 20:00 30 02/19/20 20:00 Mechanical Ventilator 02/19/20 19:13 115 20 30 02/19/20 19:00 97.5 114 12 113/64 (80) 100 02/19/20 18:00 111 12 124/55 (78) 100 02/19/20 17:01 106 20 30 02/19/20 17:00 105 12 113/64 (80) 96 02/19/20 16:00 Mechanical Ventilator 02/19/20 16:00 98.7 99 17 107/59 (75) 98 02/19/20 16:00 30 02/19/20 16:00 102 02/19/20 15:00 107 19 114/63 (80) 100 02/19/20 15:00 103 16 30 02/19/20 14:00 105 20 100/61 (74) 94 02/19/20 13:03 91 15 30 8/23/20 13:00 90 14 104/56 (72) 100 02/19/20 12:00 Mechanical Ventilator 02/19/20 12:00 99.4 91 14 105/61 (76) 100 02/19/20 12:00 90 02/19/20 12:00 30 02/19/20 11:02 87 14 30 02/19/20 11:00 88 14 121/67 (85) 100 02/19/20 10:00 96 14 117/64 (81) 100 02/19/20 09:00 94 17 125/74 (91) 98 02/19/20 08:59 97 18 30 02/19/20 08:54 94 115/69 02/19/20 08:00 94 02/19/20 08:00 Mechanical Ventilator 02/19/20 08:00 30 02/19/20 08:00 98.6 94 17 115/73 (87) 100 Intake and Output 02/19/20 02/20/20 19:00 07:00 Intake Total 460 ml 1985 ml Output Total 535 ml 405 ml Balance -75 ml 1580 ml Free Water 120 ml IV Total 100 ml 1625 ml Tube Feeding 240 ml 300 ml Other 60 ml Output Urine Total 535 ml 405 ml # Bowel Movements 2 Laboratory Tests 02/19/20 08:05: Arterial Blood pH 7.357, Arterial Blood Partial Pressure CO2 33.4L, Arterial Blood Partial Pressure O2 82.2, Arterial Blood HCO3 18.3L, Arterial Blood Oxygen Saturation 95.5, Arterial Blood Base Excess -6.4L, Jax Test Positive 02/20/20 05:30: White Blood Count 6.8, Red Blood Count 3.29L, Hemoglobin 10.1L, Hematocrit 31.5L , Mean Corpuscular Volume 96, Mean Corpuscular Hemoglobin 30.8, Mean Corpuscular Hemoglobin Concent 32.2, Red Cell Distribution Width 12.3, Platelet Count 186#, Mean Platelet Volume 9.5, Neutrophils (%) (Auto) 75.9H, Lymphocytes (%) (Auto) 11.3L, Monocytes (%) (Auto) 11.9H, Eosinophils (%) (Auto) 0.4, Basophils (%) (Auto) 0.6, Sodium Level 138, Potassium Level 4.4, Chloride Level 107, Carbon Dioxide Level 18L, Anion Gap 13, Blood Urea Nitrogen 17, Creatinine 0.9, Estimat Glomerular Filtration Rate > 60, Glucose Level 114H, Calcium Level 8.1L, Magnesium Level 1.9, Iron Level 53, Total Iron Binding Capacity 480H, Percent Iron Saturation 11L, Unsaturated Iron Binding 427H, Total Bilirubin 0.6 , Aspartate Amino Transf (AST/SGOT) 49H, Alanine Aminotransferase (ALT/SGPT) 49 , Alkaline Phosphatase 198H, Troponin I [Pending], Pro-B-Type Natriuretic Peptide 61252M, Total Protein 6.2L, Albumin 1.7L, Globulin 4.5, Albumin/ Globulin Ratio 0.4L, Carbamazepine (Tegretol) Level 10.2 Height (Feet): 5 Height (Inches): 5.00 Weight (Pounds): 135 Objective General Appearance: WD/WN, confused EENT: PERRL/EOMI, normal ENT inspection Neck: non-tender, normal alignment Cardiovascular: normal peripheral pulses, normal rate Respiratory/Chest: chest wall non-tender, lungs clear, normal breath sounds Abdomen: normal bowel sounds, non tender Edema: no edema noted Arm (L), no edema noted Arm (R) Neurologic: disoriented, unresponsive Skin: normal pigmentation Lymphatic: normal anterior cervical (L), normal anterior cervical (R) Liborio Dugan MD Feb 20, 2020 07:51
--- NOTE | 2020-02-20 08:09 | Critical Care Progress Note ---
Assessment/Plan Assessment/Plan respiratory failure pneumonia improved pulmonary hypertension elevated troponin possible NSTEMI paraplegia hypoxemia seizure history brain masses, chronic moderate PCM PLAN care noted arterial duplex of the extremities IV antibiotics noted and cultures reviewed over the weekend respiratory care and nursing care noted Ventilatory support on retry wean with attempts to extubate no sedation as able monitor acid base and adjust supportive care suction as needed monitor heart rate seizure meds- in good range oxygen therapy prognosis improved nutrition off load medications/laboratory data/nursing notes/ICU care reviewed in detail note reviewed and edited care discussed with RN and RT ICU time spent >40 minutes Critical Care - Subjective Interval Events: care noted weekend events reviewed ICU care noted altered and withdrawn ROS Limited/Unobtainable: Yes Condition: critical EKG Rhythm: Sinus Rhythm Residuals: minimal Tube Feeding Tolerated: yes I&O: Intake and Output 02/19/20 02/20/20 19:00 07:00 Intake Total 460 ml 1985 ml Output Total 535 ml 405 ml Balance -75 ml 1580 ml Free Water 120 ml IV Total 100 ml 1625 ml Tube Feeding 240 ml 300 ml Other 60 ml Output Urine Total 535 ml 405 ml # Bowel Movements 2 Critical Care - Objective ET-Tube: 7.0 ET Position: 23 Last 24 Hour Vital Signs Date Time Temp Pulse Resp B/P (MAP) Pulse Ox O2 Delivery O2 Flow Rate FiO2 02/20/20 06:30 97 12 02/20/20 06:00 101 19 120/80 (93) 02/20/20 05:00 97 17 119/74 (89) 100 02/20/20 04:00 30 02/20/20 04:00 101 02/20/20 04:00 Mechanical Ventilator 02/20/20 04:00 97.7 91 19 115/75 (88) 91 02/20/20 03:00 82 16 108/65 (79) 100 02/20/20 02:57 80 17 30 02/20/20 02:00 76 18 94/52 (66) 100 02/20/20 01:00 77 17 94/51 (65) 100 02/20/20 00:00 95 02/20/20 00:00 Mechanical Ventilator 02/20/20 00:00 30 02/20/20 00:00 98.8 88 19 124/75 (91) 02/19/20 23:08 106 21 30 02/19/20 23:01 106 19 116/60 (78) 100 8/23/20 22:38 107 107/55 02/19/20 22:00 107 21 107/55 (72) 100 02/19/20 21:34 99.9 02/19/20 21:00 100.7 115 21 127/66 (86) 97 02/19/20 20:00 107 02/19/20 20:00 100.0 119 110/56 (74) 02/19/20 20:00 30 02/19/20 20:00 Mechanical Ventilator 02/19/20 19:13 115 20 30 02/19/20 19:00 97.5 114 12 113/64 (80) 100 02/19/20 18:00 111 12 124/55 (78) 100 02/19/20 17:01 106 20 30 02/19/20 17:00 105 12 113/64 (80) 96 02/19/20 16:00 Mechanical Ventilator 02/19/20 16:00 98.7 99 17 107/59 (75) 98 02/19/20 16:00 30 02/19/20 16:00 102 02/19/20 15:00 107 19 114/63 (80) 100 02/19/20 15:00 103 16 30 02/19/20 14:00 105 20 100/61 (74) 94 02/19/20 13:03 91 15 30 02/19/20 13:00 90 14 104/56 (72) 100 02/19/20 12:00 Mechanical Ventilator 02/19/20 12:00 99.4 91 14 105/61 (76) 100 02/19/20 12:00 90 02/19/20 12:00 30 02/19/20 11:02 87 14 30 02/19/20 11:00 88 14 121/67 (85) 100 02/19/20 10:00 96 14 117/64 (81) 100 02/19/20 09:00 94 17 125/74 (91) 98 02/19/20 08:59 97 18 30 02/19/20 08:54 94 115/69 Labs: Labs Test 02/18/20 04:15 02/19/20 04:15 02/19/20 08:05 02/20/20 05:30 White Blood Count 10.9 K/UL (4.8-10.8) 6.4 K/UL (4.8-10.8) 6.8 K/UL (4.8-10.8) Red Blood Count 3.41 M/UL (4.20-5.40) 2.92 M/UL (4.20-5.40) 3.29 M/UL (4.20-5.40) Hemoglobin 10.6 G/DL (12.0-16.0) 9.1 G/DL (12.0-16.0) 10.1 G/DL (12.0-16.0) Hematocrit 32.7 % (37.0-47.0) 28.2 % (37.0-47.0) 31.5 % (37.0-47.0) Mean Corpuscular Volume 96 FL (80-99) 97 FL (80-99) 96 FL (80-99) Mean Corpuscular Hemoglobin 31.0 PG (27.0-31.0) 31.2 PG (27.0-31.0) 30.8 PG (27.0-31.0) Mean Corpuscular Hemoglobin Concent 32.4 G/DL (32.0-36.0) 32.3 G/DL (32.0-36.0) 32.2 G/DL (32.0-36.0) Red Cell Distribution Width 12.2 % (11.6-14.8) 12.4 % (11.6-14.8) 12.3 % (11.6-14.8) Platelet Count 127 K/UL (150-450) 118 K/UL (150-450) 186 K/UL (150-450) Mean Platelet Volume 9.8 FL (6.5-10.1) 9.7 FL (6.5-10.1) 9.5 FL (6.5-10.1) Neutrophils (%) (Auto) 75.2 % (45.0-75.0) 70.7 % (45.0-75.0) 75.9 % (45.0-75.0) Lymphocytes (%) (Auto) 12.2 % (20.0-45.0) 13.5 % (20.0-45.0) 11.3 % (20.0-45.0) Monocytes (%) (Auto) 12.1 % (1.0-10.0) 14.6 % (1.0-10.0) 11.9 % (1.0-10.0) Eosinophils (%) (Auto) 0.0 % (0.0-3.0) 0.4 % (0.0-3.0) 0.4 % (0.0-3.0) Basophils (%) (Auto) 0.5 % (0.0-2.0) 0.7 % (0.0-2.0) 0.6 % (0.0-2.0) Sodium Level 136 MMOL/L (136-145) 137 MMOL/L (136-145) 138 MMOL/L (136-145) Potassium Level 3.9 MMOL/L (3.5-5.1) 3.8 MMOL/L (3.5-5.1) 4.4 MMOL/L (3.5-5.1) Chloride Level 107 MMOL/L (98-107) 107 MMOL/L (98-107) 107 MMOL/L (98-107) Carbon Dioxide Level 20 MMOL/L (21-32) 20 MMOL/L (21-32) 18 MMOL/L (21-32) Anion Gap 9 mmol/L (5-15) 10 mmol/L (5-15) 13 mmol/L (5-15) Blood Urea Nitrogen 13 mg/dL (7-18) 17 mg/dL (7-18) 17 mg/dL (7-18) Creatinine 0.9 MG/DL (0.55-1.30) 1.0 MG/DL (0.55-1.30) 0.9 MG/DL (0.55-1.30) Estimat Glomerular Filtration Rate > 60 mL/min (>60) > 60 mL/min (>60) > 60 mL/min (>60) Glucose Level 129 MG/DL (74-106) 127 MG/DL (74-106) 114 MG/DL (74-106) Calcium Level 8.2 MG/DL (8.5-10.1) 8.1 MG/DL (8.5-10.1) 8.1 MG/DL (8.5-10.1) Total Bilirubin 1.1 MG/DL (0.2-1.0) 0.6 MG/DL (0.2-1.0) Direct Bilirubin 0.6 MG/DL (0.0-0.3) Aspartate Amino Transf (AST/SGOT) 45 U/L (15-37) 49 U/L (15-37) Alanine Aminotransferase (ALT/SGPT) 43 U/L (12-78) 49 U/L (12-78) Alkaline Phosphatase 187 U/L (46-116) 198 U/L (46-116) Total Protein 6.5 G/DL (6.4-8.2) 6.2 G/DL (6.4-8.2) Albumin 2.1 G/DL (3.4-5.0) 1.7 G/DL (3.4-5.0) Globulin 4.4 g/dL 4.5 g/dL Albumin/Globulin Ratio 0.5 (1.0-2.7) 0.4 (1.0-2.7) Magnesium Level 2.0 MG/DL (1.8-2.4) 1.9 MG/DL (1.8-2.4) Troponin I 0.118 ng/mL (0.000-0.056) Pro-B-Type Natriuretic Peptide 09188 pg/mL (0-125) 90438 pg/mL (0-125) Thyroid Stimulating Hormone (TSH) 0.791 uiU/mL (0.358-3.740) Arterial Blood pH 7.357 (7.350-7.450) Arterial Blood Partial Pressure CO2 33.4 mmHg (35.0-45.0) Arterial Blood Partial Pressure O2 82.2 mmHg (75.0-100.0) Arterial Blood HCO3 18.3 mmol/L (22.0-26.0) Arterial Blood Oxygen Saturation 95.5 % (95-100) Arterial Blood Base Excess -6.4 (-2-2) Jax Test Positive Iron Level 53 ug/dL (50-175) Total Iron Binding Capacity 480 ug/dL (250-450) Percent Iron Saturation 11 % (15-50) Unsaturated Iron Binding 427 ug/dL (112-346) Carbamazepine (Tegretol) Level 10.2 ug/mL (4.0-12.0) Objective: WDWN NAD on vent reduced breath sounds bilaterally without rhonchi or wheeze [id number] without MRG NABS nontender no HSM no CCE nonfocal poor LOC reduced ROM skin noted reviewed and edited feeding tube in place Juan Snow MD Feb 20, 2020 08:09
[2020-02-20] MEDS: levETIRAcetam 1,000mg/NS100ml 100 ML IVPB SCH ×2 (09:38→20:30)
[2020-02-20] MEDS: NS w/KCl 20mEq 1000ml 1,000 ML IV SCH (09:38)
[2020-02-20] MEDS: SELEXIPAG ORAL SCH ×3 (09:38→18:19)
[2020-02-20] MEDS: Aspirin Baby 81mg NG SCH (09:39)
[2020-02-20] MEDS: Cefepime HCl 1 GM in D5W 55 ML IVPB SCH ×2 (09:39→20:31)
[2020-02-20] MEDS: Eliquis 5mg tablet NGT SCH ×2 (09:39→18:19)
[2020-02-20] MEDS: Revatio 20mg tab ORAL SCH ×3 (09:39→18:19)
[2020-02-20] MEDS: carBAMazepine 200mg tab NG SCH ×3 (09:40→18:19)
[2020-02-20] MEDS: Lacri-Lube Opth Oint 3.5gm BOTH EYES SCH ×3 (09:40→18:20)
[2020-02-20] MEDS: OPSUMIT 10 MG ORAL SCH (09:40)
--- NOTE | 2020-02-20 12:05 | Infectious Diseases Prog Note ---
"Assessment/Plan Assessment/Plan antibiotics : cefepime A 1. acenitobater | gram negative pneumonia COVID 19 negative 2. respiratory failure 3. neurofibromatosis 4. seizures 5. pulmonary hypertension 6. + blood cultures with coag neg staph likely contaminated P 1. continue iv cefepime 2. will follow up cultures Subjective ROS Limited/Unobtainable: Yes Allergies: Coded Allergies: PENICILLINS (Verified Allergy, Severe, 08/07/12) FISH CONTAINING PRODUCTS (Verified Allergy, Unknown, 06/02/18) Uncoded Allergies: seafood (Allergy, Unknown, 06/02/18) Objective Last 24 Hour Vital Signs Date Time Temp Pulse Resp B/P (MAP) Pulse Ox O2 Delivery O2 Flow Rate FiO2 02/20/20 11:00 109 17 108/51 (70) 100 02/20/20 10:00 114 20 125/74 (91) 98 02/20/20 09:39 111 118/74 02/20/20 09:05 111 18 30 02/20/20 09:00 98.3 110 18 118/74 (89) 94 02/20/20 08:00 Mechanical Ventilator 02/20/20 08:00 30 02/20/20 08:00 104 17 125/73 (90) 98 02/20/20 07:15 102 02/20/20 07:05 110 20 30 02/20/20 07:00 103 3 112/72 (85) 94 02/20/20 06:30 97 12 02/20/20 06:00 101 19 120/80 (93) 02/20/20 05:00 97 17 119/74 (89) 100 02/20/20 04:00 30 02/20/20 04:00 101 02/20/20 04:00 Mechanical Ventilator 02/20/20 04:00 97.7 91 19 115/75 (88) 91 02/20/20 03:00 82 16 108/65 (79) 100 02/20/20 02:57 80 17 30 02/20/20 02:00 76 18 94/52 (66) 100 02/20/20 01:00 77 17 94/51 (65) 100 02/20/20 00:00 95 02/20/20 00:00 Mechanical Ventilator 02/20/20 00:00 30 02/20/20 00:00 98.8 88 19 124/75 (91) 02/19/20 23:08 106 21 30 02/19/20 23:01 106 19 116/60 (78) 100 02/19/20 22:38 107 107/55 02/19/20 22:00 107 21 107/55 (72) 100 02/19/20 21:34 99.9 02/19/20 21:00 100.7 115 21 127/66 (86) 97 02/19/20 20:00 107 02/19/20 20:00 100.0 119 110/56 (74) 02/19/20 20:00 30 02/19/20 20:00 Mechanical Ventilator 02/19/20 19:13 115 20 30 02/19/20 19:00 97.5 114 12 113/64 (80) 100 02/19/20 18:00 111 12 124/55 (78) 100 02/19/20 17:01 106 20 30 02/19/20 17:00 105 12 113/64 (80) 96 02/19/20 16:00 Mechanical Ventilator 02/19/20 16:00 98.7 99 17 107/59 (75) 98 02/19/20 16:00 30 02/19/20 16:00 102 02/19/20 15:00 107 19 114/63 (80) 100 02/19/20 15:00 103 16 30 02/19/20 14:00 105 20 100/61 (74) 94 02/19/20 13:03 91 15 30 02/19/20 13:00 90 14 104/56 (72) 100 Height (Feet): 5 Height (Inches): 5.00 Weight (Pounds): 135 HEENT: other - intubated Respiratory/Chest: lungs clear Cardiovascular: normal rate, regular rhythm, no gallop/murmur Abdomen: soft, non tender Extremities: no edema Laboratory Tests Test 02/20/20 05:30 White Blood Count 6.8 K/UL (4.8-10.8) Red Blood Count 3.29 M/UL (4.20-5.40) L Hemoglobin 10.1 G/DL (12.0-16.0) L Hematocrit 31.5 % (37.0-47.0) L Mean Corpuscular Volume 96 FL (80-99) Mean Corpuscular Hemoglobin 30.8 PG (27.0-31.0) Mean Corpuscular Hemoglobin Concent 32.2 G/DL (32.0-36.0) Red Cell Distribution Width 12.3 % (11.6-14.8) Platelet Count 186 K/UL (150-450) # Mean Platelet Volume 9.5 FL (6.5-10.1) Neutrophils (%) (Auto) 75.9 % (45.0-75.0) H Lymphocytes (%) (Auto) 11.3 % (20.0-45.0) L Monocytes (%) (Auto) 11.9 % (1.0-10.0) H Eosinophils (%) (Auto) 0.4 % (0.0-3.0) Basophils (%) (Auto) 0.6 % (0.0-2.0) Sodium Level 138 MMOL/L (136-145) Potassium Level 4.4 MMOL/L (3.5-5.1) Chloride Level 107 MMOL/L (98-107) Carbon Dioxide Level 18 MMOL/L (21-32) L Anion Gap 13 mmol/L (5-15) Blood Urea Nitrogen 17 mg/dL (7-18) Creatinine 0.9 MG/DL (0.55-1.30) Estimat Glomerular Filtration Rate > 60 mL/min (>60) Glucose Level 114 MG/DL (74-106) H Calcium Level 8.1 MG/DL (8.5-10.1) L Magnesium Level 1.9 MG/DL (1.8-2.4) Iron Level 53 ug/dL (50-175) Total Iron Binding Capacity 480 ug/dL (250-450) H Percent Iron Saturation 11 % (15-50) L Unsaturated Iron Binding 427 ug/dL (112-346) H Total Bilirubin 0.6 MG/DL (0.2-1.0) Aspartate Amino Transf (AST/SGOT) 49 U/L (15-37) H Alanine Aminotransferase (ALT/SGPT) 49 U/L (12-78) Alkaline Phosphatase 198 U/L (46-116) H Troponin I 0.095 ng/mL (0.000-0.056) Pro-B-Type Natriuretic Peptide 00545 pg/mL (0-125) H Total Protein 6.2 G/DL (6.4-8.2) L Albumin 1.7 G/DL (3.4-5.0) L Globulin 4.5 g/dL Albumin/Globulin Ratio 0.4 (1.0-2.7) L Carbamazepine (Tegretol) Level 10.2 ug/mL (4.0-12.0) Current Medications Medications (Trade) Dose Ordered Sig/Brian Route PRN Reason Start Time Stop Time Status Last Admin Dose Admin Acetaminophen (Tylenol) 650 mg Q4H PRN NG Mild Pain (Pain Scale 1-3) 02/14/20 03:00 03/15/20 02:59 02/17/20 05:28 Acetaminophen (Tylenol) 650 mg Q4H PRN NG Temp >100.5 02/14/20 03:00 03/15/20 02:59 02/19/20 21:04 Al Hydroxide/Mg Hydroxide (Mylanta) 30 ml Q4H PRN ORAL Dyspepsia 02/14/20 03:00 03/15/20 02:59 Apixaban (Eliquis) 5 mg BID NGT 02/14/20 09:00 05/14/20 08:59 02/20/20 09:39 Artificial Tears (Lacri-Lube) 1 applic TID BOTH EYES 02/18/20 09:00 03/18/20 09:29 02/20/20 09:40 Aspirin (ASA) 81 mg DAILY NG 02/15/20 09:00 03/31/20 08:59 02/20/20 09:39 Carbamazepine (TEGretol) 200 mg TID NG 02/14/20 09:00 03/15/20 08:59 02/20/20 09:40 Cefepime HCl 1 gm/ Dextrose 55 ml @ 110 mls/hr EVERY 12 HOURS IVPB 02/14/20 11:30 02/21/20 11:29 02/20/20 09:39 Furosemide (Lasix) 20 mg DAILY IV 02/19/20 09:00 03/20/20 08:59 02/20/20 09:40 Gabapentin (Neurontin) 100 mg THREE TIMES A DAY ORAL 02/14/20 09:00 03/15/20 08:59 02/20/20 09:40 Lansoprazole (Prevacid) 30 mg DAILY NG 02/14/20 09:00 03/15/20 08:59 02/20/20 09:40 Levetiracetam 100 ml @ 400 mls/hr Q12HR IVPB 02/19/20 09:00 05/19/20 08:59 02/20/20 09:38 Lorazepam (Ativan 2mg/ml 1ml) 1 mg Q4H PRN IV For seizures 02/16/20 09:30 02/23/20 09:29 Metoclopramide HCl (Reglan) 5 mg Q6H PRN IVP Nausea & Vomiting 02/19/20 08:15 03/20/20 08:14 02/19/20 12:44 Metoprolol Tartrate (Lopressor) 25 mg Q12HR ORAL 02/15/20 21:00 05/15/20 20:59 02/20/20 09:39 Patient Own Medication (Patient's Own Med) 1 ea DAILY ORAL 02/14/20 13:00 03/15/20 12:59 02/19/20 08:55 Patient Own Medication (Patient's Own Med) 1 ea TID ORAL 02/14/20 13:00 03/15/20 12:59 02/20/20 09:38 Potassium Chloride/Sodium Chloride 1,000 ml @ 100 mls/hr Q10H IV 02/19/20 04:00 03/20/20 03:59 02/20/20 09:38 Sildenafil Citrate (Revatio) 20 mg TID ORAL 02/14/20 09:00 05/14/20 08:59 02/20/20 09:39 Maci Deleon MD Feb 20, 2020 12:05"
--- NOTE | 2020-02-20 12:13 | Diagnostic Imaging Report ---
Indication: Bilateral upper extremity edema and pain, cold arms and fingers Technique: Grayscale and duplex images of the bilateral upper extremity arteries Comparison: none Findings: On the right, grayscale and duplex images demonstrate triphasic waveforms with sharp systolic peaks at all levels. The right common carotid artery demonstrates typical low-resistance waveform. On the left, grayscale and duplex images demonstrate triphasic waveforms with sharp systolic peaks. However, at the brachial artery level and below, amplitude is somewhat decreased, particularly as compared to the contralateral side, with peak systolic velocities of 20 cm/s at the wrists as compared to approximately 40 cm/s on the right. Impression: On the left, Doppler waveforms are low amplitude distally but otherwise appear normal; significance of this finding is uncertain. No evidence of significant peripheral vascular insufficiency on the right.
--- NOTE | 2020-02-20 12:21 | Diagnostic Imaging Report ---
Indication: Bilateral lower extremity pain and coldness Technique: Grayscale and duplex images of the bilateral lower extremity arteries Comparison: 05/16/2018 Findings: On the right, triphasic or biphasic waveforms with sharp systolic peaks are seen from the common femoral to the popliteal artery. The posterior tibial artery demonstrates diminished amplitude and biphasic waveform. The peroneal artery and dorsalis pedis arteries demonstrate sharp systolic peaks and biphasic waveforms. No significant flow velocity elevation demonstrated. On the left, biphasic or triphasic waveforms with sharp systolic peaks are seen to the popliteal artery level. Posterior tibial artery demonstrates diminished amplitude and biphasic waveform. Peroneal and dorsalis pedis artery waveforms are biphasic with sharp systolic peaks. When compared to prior exam, findings are unchanged Impression: No evidence of significant lower extremity peripheral vascular insufficiency
--- NOTE | 2020-02-20 18:48 | Consultation ---
Consult Note Consult Note [facility] NEUROLOGY CONSULTATION February 20, [address] Dugan, I evaluated Ms Srinivasan and my assessment is as follows. HISTORY: Ms. Roseann Srinivasan is a 49-year-old, black lady, of unknown handedness, who does have a past history of neurofibromatosis, a seizure disorder, pulmonary hypertension, deafness of an unknown degree, and visual problems of an unknown degree. She was brought into the [facility] emergency room on 02/13/2020 by her family because of an alteration in her mental state. She had apparently been poorly responsive and lethargic for several days prior to admission. She had also not been able to eat or drink much. She was noted to have a fever and was shaking. On being evaluated in the emergency room she was poorly responsive and unable to protect her airway and as a result of that she was intubated and artificially ventilated. She was also febrile with a temperature of 102 F. Her chest x-ray was apparently unremarkable. Her urine however did show 15-20 white blood cells per high-power field. She was started on intravenous fluids and antibiotics, and was observed in the ICU. As per her ICU nurse she has had no seizures or seizure-like phenomena while she has been in the ICU. She has continued to stay poorly responsive during her hospitalization. An EEG performed on 02/18/2020 revealed: An encephalopathy of a moderate degree with a toxic metabolic component. Right temporal focal dysfunction. A right temporal epileptogenic focus with phase reversals in the mid temporal region. This consultation was requested to evaluate the patient for her altered mental state. PAST HISTORY: Neurofibromatosis, seizure disorder, pulmonary hypertension, deafness of an unknown degree, and visual problems of an unknown degree. FAMILY HISTORY: Nothing significant as per the patient's chart PERSONAL HISTORY: Home: She lives at home with family. Work: She is unemployed. Habits: There is no history of alcohol tobacco or illicit drug use. ALLERGIES: She is allergic to penicillins and seafood. NEUROLOGIC REVIEW OF SYSTEMS: Unable to obtain PHYSICAL EXAMINATION: GENERAL: She is a well-developed, relatively well-nourished, black lady, lying in intensive care unit bed, connected to ventilator via an endotracheal tube. VITAL SIGNS: Pulse: 103/minute. Blood Pressure: 112/74 mm of Hg. Respirations: 18/minute Temperature: 99.3 F. HEAD: Normocephalic and atraumatic. NECK: No neck rigidity was observed. EENT: She had bilateral chemosis involving the left side more than the right. SPINE: Cervical, thoracic and lumbosacral spine revealed no tenderness or paraspinal muscle spasm. NEUROLOGIC EXAMINATION: MENTAL STATUS EXAMINATION: She was comatose and did not respond even to deep painful stimuli. Further mental status testing was impossible. SPEECH: Could not be tested. LANGUAGE: Could not be tested. CRANIAL NERVE EXAMINATION: II: She did not blink to threat. III, IV, : External ocular movements were present but restricted on oculocephalic maneuvers. The pupils were 3 mm in diameter equal, round, regular and did not react to light. V & VII: The corneal reflexes were present but subdued bilaterally. VIII: She did not respond to sounds and had no nystagmus. IX & X: The gag reflex was absent on manipulating the endotracheal tube. XI: The sternocleidomastoids and trapezii did not function. XII: The tongue could not be examined properly. MOTOR SYSTEM: The tone was diminished in all 4 extremities. Examination of muscle mass revealed generalized muscle wasting. Examination of power was impossible to perform because even on applying deep painful stimuli no responses were seen. SENSORY EXAMINATION: She did not respond even to deep painful stimuli. REFLEXES: 0 at the biceps, triceps, brachioradialis, knees and ankles. The plantar responses were mute bilaterally. COORDINATION, STANCE & GAIT: Not be tested. ABNORMAL MOVEMENTS: None DIAGNOSTIC IMPRESSION: 1. Ms. Roseann Srinivasan is a 49-year-old, black lady, of unknown handedness, who does have a past history of neurofibromatosis, a seizure disorder, pulmonary hypertension, deafness of an unknown degree, and visual problems of an unknown degree. 2. She was hospitalized on 02/13/2020 and altered mental state preceded by failure to thrive, fever and possibly shaking chills, and a global decline in function. It was felt that she may have urinary tract infection. She was intubated and artificially ventilated, started on intravenous fluids, and antibiotics, and was observed in the ICU. 3. She does have a history of seizures but has not been observed to have any seizures during hospitalization. 4. An EEG performed on 02/18/2020 revealed: An encephalopathy of a moderate degree with a toxic metabolic component. Right temporal focal dysfunction. A right temporal epileptogenic focus with phase reversals in the mid temporal region. 5. On neurological examination at this time she is comatose and does not respond to any external stimuli. She does have brainstem reflexes in the form of eye movements on oculocephalic maneuvers, corneal reflexes, and spontaneous ventilations. She did does not exhibit any limb movements even on applying deep painful stimuli. Her deep tendon reflexes are globally absent and the plantar responses mute. 6. Her latest laboratory data revealed an anemia with a hemoglobin of 10.1 g, AST elevated at 49, alkaline phosphate is elevated at 198, proBNP elevated at 11,463, normal PO2 at 83, minimally low PCO2 at 33, normal TSH, and a therapeutic Tegretol level at 10.2. 7. The patient's history, neurological examination, and EEG are most consistent with a significant toxic metabolic encephalopathy. At this point in time it is unknown if the patient may also have intracranial pathology. 8. With regards to her seizure disorder, the patient has not had any clinical seizures while hospitalized and in addition the EEG also did not reveal any seizures but did reveal interictal phenomena emanating from the right temporal region. RECOMMENDATIONS: 1. Agree with management thus far. 2. An imaging study of the brain should be performed to evaluate the patient for intracranial pathology. Unfortunately we are unable to obtain an MRI of the brain at [facility] on an intubated patient and thus a CT scan of the brain will be ordered. 3. She should be worked up thoroughly for other treatable causes of encephalopathy with a vitamin B12 level, folate level, vitamin D level, ammonia, RPR, and a.m. cortisol. 4. Her prehospitalization anticonvulsant regimen should be continued. 5. The patient will be observed closely and depending on how she fares further recommendations will be given. Thank you for entrusting me to take care of Ms. Srinivasan's Neurologic needs. I shall follow her with you. Sincerely, Otoniel Ellis M.D., M.S.P.H. Neurologist & Clinical Neurophysiologist Otoniel Ellis MD Feb 20, 2020 18:48
[2020-02-20] MEDS: Iron Sucrose 100 MG in NS 55 ML IV SCH (20:30)
[2020-02-20 21:14] LABS: AMMONIA 46 umol/L (11-32)
--- NOTE | 2020-02-20 23:37 | Cardiology Progress Note ---
Subjective DATE OF SERVICE: Feb [birth year], 1930 On vent support - 30% FIO2; ABG 7.36/33/82 BP remains stable in low-normal range No new fever spikes. Per neuro, no seizure activity noted Monitor: sinus tachycardia and sinus rhythm Troponin levels trending down. CXR (02/19/20) worsening infiltrate on left and persisting on right. Objective Last 24 Hour Vital Signs Date Time Temp Pulse Resp B/P (MAP) Pulse Ox O2 Delivery O2 Flow Rate FiO2 02/20/20 23:14 111 18 30 02/20/20 23:00 109 18 101/62 (75) 95 02/20/20 22:30 105 19 104/61 (75) 94 02/20/20 22:00 106 20 94/65 (75) 94 02/20/20 21:02 110 20 30 02/20/20 21:00 110 10 126/81 (96) 90 02/20/20 20:32 107 109/70 02/20/20 20:00 Mechanical Ventilator 02/20/20 20:00 30 02/20/20 20:00 107 02/20/20 20:00 99.9 107 14 109/70 (83) 91 02/20/20 19:12 108 22 30 02/20/20 19:00 107 11 112/79 (90) 99 02/20/20 18:00 110 14 102/63 (76) 98 02/20/20 17:00 106 18 30 02/20/20 17:00 103 19 112/74 (87) 02/20/20 16:00 Mechanical Ventilator 02/20/20 16:00 30 02/20/20 16:00 99.3 103 18 108/65 (79) 02/20/20 15:43 102 02/20/20 15:00 102 18 101/60 (74) 98 02/20/20 14:55 105 19 30 02/20/20 14:00 103 19 114/71 (85) 98 02/20/20 13:00 106 18 30 02/20/20 13:00 101 17 108/64 (79) 02/20/20 12:00 Mechanical Ventilator 02/20/20 12:00 30 02/20/20 12:00 97.3 102 19 104/56 (72) 89 02/20/20 11:54 102 02/20/20 11:05 107 16 30 02/20/20 11:00 109 17 108/51 (70) 100 02/20/20 10:00 114 20 125/74 (91) 98 02/20/20 09:39 111 118/74 02/20/20 09:05 111 18 30 02/20/20 09:00 98.3 110 18 118/74 (89) 94 02/20/20 08:00 Mechanical Ventilator 02/20/20 08:00 30 02/20/20 08:00 104 17 125/73 (90) 98 02/20/20 07:15 102 02/20/20 07:05 110 20 30 02/20/20 07:00 103 3 112/72 (85) 94 02/20/20 06:30 97 12 02/20/20 06:00 101 19 120/80 (93) 02/20/20 05:00 97 17 119/74 (89) 100 02/20/20 04:00 30 02/20/20 04:00 101 02/20/20 04:00 Mechanical Ventilator 02/20/20 04:00 97.7 91 19 115/75 (88) 91 02/20/20 03:00 82 16 108/65 (79) 100 02/20/20 02:57 80 17 30 02/20/20 02:00 76 18 94/52 (66) 100 02/20/20 01:00 77 17 94/51 (65) 100 02/20/20 00:00 95 02/20/20 00:00 Mechanical Ventilator 02/20/20 00:00 30 02/20/20 00:00 98.8 88 19 124/75 (91) ROS: no change from my evaluation on 02/14/20 HEENT: Orally intubated RHYTHM: ST LUNGS: bilateral rhonchi CARDIAC: regular rhythm, normal S1 and S2, rapid rate, tachycardia ABDOMEN: normal bowel sounds, non tender, soft EXTREMITIES: non-tender, trace edema Laboratory Tests Test 02/20/20 05:30 02/20/20 20:30 White Blood Count 6.8 K/UL (4.8-10.8) Red Blood Count 3.29 M/UL (4.20-5.40) L Hemoglobin 10.1 G/DL (12.0-16.0) L Hematocrit 31.5 % (37.0-47.0) L Mean Corpuscular Volume 96 FL (80-99) Mean Corpuscular Hemoglobin 30.8 PG (27.0-31.0) Mean Corpuscular Hemoglobin Concent 32.2 G/DL (32.0-36.0) Red Cell Distribution Width 12.3 % (11.6-14.8) Platelet Count 186 K/UL (150-450) # Mean Platelet Volume 9.5 FL (6.5-10.1) Neutrophils (%) (Auto) 75.9 % (45.0-75.0) H Lymphocytes (%) (Auto) 11.3 % (20.0-45.0) L Monocytes (%) (Auto) 11.9 % (1.0-10.0) H Eosinophils (%) (Auto) 0.4 % (0.0-3.0) Basophils (%) (Auto) 0.6 % (0.0-2.0) Sodium Level 138 MMOL/L (136-145) Potassium Level 4.4 MMOL/L (3.5-5.1) Chloride Level 107 MMOL/L (98-107) Carbon Dioxide Level 18 MMOL/L (21-32) L Anion Gap 13 mmol/L (5-15) Blood Urea Nitrogen 17 mg/dL (7-18) Creatinine 0.9 MG/DL (0.55-1.30) Estimat Glomerular Filtration Rate > 60 mL/min (>60) Glucose Level 114 MG/DL (74-106) H Calcium Level 8.1 MG/DL (8.5-10.1) L Magnesium Level 1.9 MG/DL (1.8-2.4) Iron Level 53 ug/dL (50-175) Total Iron Binding Capacity 480 ug/dL (250-450) H Percent Iron Saturation 11 % (15-50) L Unsaturated Iron Binding 427 ug/dL (112-346) H Total Bilirubin 0.6 MG/DL (0.2-1.0) Aspartate Amino Transf (AST/SGOT) 49 U/L (15-37) H Alanine Aminotransferase (ALT/SGPT) 49 U/L (12-78) Alkaline Phosphatase 198 U/L (46-116) H Troponin I 0.095 ng/mL (0.000-0.056) Pro-B-Type Natriuretic Peptide 36649 pg/mL (0-125) H Total Protein 6.2 G/DL (6.4-8.2) L Albumin 1.7 G/DL (3.4-5.0) L Globulin 4.5 g/dL Albumin/Globulin Ratio 0.4 (1.0-2.7) L Carbamazepine (Tegretol) Level 10.2 ug/mL (4.0-12.0) Erythrocyte Sedimentation Rate 90 MM/HR (0-20) H Ammonia 46 umol/L (11-32) H Vitamin B12 Level > 2000 PG/ML (193-986) H Vitamin D 25-Hydroxy Pending 25-Hydroxy Vitamin D2 Pending 25-Hydroxy Vitamin D3 Pending Folate 17.5 NG/ML (8.6-58.9) Rapid Plasma Reagin Pending Assessment/Plan Assessment/Plan Respiratory Failure UTI Sepsis with shock Acute myocardial infarction (NSTE) Neurofibromatosis Hypokalemia Hypomagnesemia Hypovolemia Pulmonary Hypertension Aspiration PNA Metabolic encephalopathy Chronic sz disorder Fluid challenge as needed; hope to avoid pressors. Vent support anti-plt and anti-coagulant rx for now Anti-microbials per ID Beta blockade with hold parameters for low BP. Maintain IVF Anti-pyretics Resp rx Marcus Main MD Feb 20, 2020 23:37
[2020-02-21] VITALS (31 sets, daily range): BP systolic 91–115; BP diastolic 53–81
[2020-02-21] MEDS: carBAMazepine 200mg tab NG SCH ×3 (08:31→18:45)
[2020-02-21] MEDS: Eliquis 5mg tablet NGT SCH ×2 (08:31→18:45)
[2020-02-21] MEDS: Cefepime HCl 1 GM in D5W 55 ML IVPB SCH (08:31)
[2020-02-21] MEDS: Aspirin Baby 81mg NG SCH (08:31)
[2020-02-21] MEDS: Revatio 20mg tab ORAL SCH ×3 (08:31→18:45)
[2020-02-21] MEDS: SELEXIPAG ORAL SCH ×3 (08:31→18:45)
--- NOTE | 2020-02-21 08:44 | Critical Care Progress Note ---
Assessment/Plan Assessment/Plan respiratory failure pneumonia improved by CXR pulmonary hypertension elevated troponin possible NSTEMI paraplegia hypoxemia seizure history brain masses, chronic moderate PCM PLAN care noted arterial duplex of the extremities negative IV antibiotics noted and cultures reviewed over the weekend respiratory care and nursing care noted Ventilatory support on- trying to wean but poor volumes no sedation at present monitor acid base and adjust supportive care suction as needed monitor heart rate seizure meds- in good range and monitor oxygen therapy prognosis improved nutrition off load and monitor skin update family medications/laboratory data/nursing notes/ICU care reviewed in detail note reviewed and edited care discussed with RN and RT ICU time spent >40 minutes Critical Care - Subjective Interval Events: unable to wean well care noted poor LOC off sedation ICU care reviewed d/w RN in detail ROS Limited/Unobtainable: Yes Condition: critical EKG Rhythm: Sinus Rhythm Residuals: minimal Tube Feeding Tolerated: yes I&O: Intake and Output 02/20/20 02/21/20 19:00 07:00 Intake Total 951.66 ml 375 ml Output Total 1285 ml 230 ml Balance -333.34 ml 145 ml IV Total 591.66 ml 215 ml Tube Feeding 360 ml 120 ml Other 40 ml Output Urine Total 1285 ml 230 ml # Bowel Movements 2 Critical Care - Objective CXR: + infiltrate ET-Tube: 7.0 ET Position: 23 Last 24 Hour Vital Signs Date Time Temp Pulse Resp B/P (MAP) Pulse Ox O2 Delivery O2 Flow Rate FiO2 02/21/20 08:32 109 99/63 02/21/20 07:21 113 18 30 02/21/20 07:00 113 17 109/60 (76) 94 02/21/20 06:30 112 16 94/61 (72) 93 02/21/20 06:30 112 16 02/21/20 06:00 113 17 105/69 (81) 94 02/21/20 05:29 113 20 30 02/21/20 05:00 114 18 99/61 (74) 95 02/21/20 04:00 98.9 111 19 98/66 (77) 100 02/21/20 04:00 Mechanical Ventilator 02/21/20 04:00 30 02/21/20 03:28 108 02/21/20 03:24 116 20 30 02/21/20 03:00 107 19 101/71 (81) 94 02/21/20 02:00 106 17 91/60 (70) 93 02/21/20 01:01 109 20 30 02/21/20 01:00 109 21 97/53 (68) 96 02/21/20 00:00 30 02/21/20 00:00 99.8 110 18 103/63 (76) 93 02/21/20 00:00 Mechanical Ventilator 02/21/20 00:00 110 02/20/20 23:14 111 18 30 02/20/20 23:00 109 18 101/62 (75) 95 02/20/20 22:30 105 19 104/61 (75) 94 02/20/20 22:00 106 20 94/65 (75) 94 02/20/20 21:02 110 20 30 02/20/20 21:00 110 10 126/81 (96) 90 02/20/20 20:32 107 109/70 02/20/20 20:00 Mechanical Ventilator 02/20/20 20:00 30 02/20/20 20:00 107 02/20/20 20:00 99.9 107 14 109/70 (83) 91 02/20/20 19:12 108 22 30 02/20/20 19:00 107 11 112/79 (90) 99 02/20/20 18:00 110 14 102/63 (76) 98 02/20/20 17:00 106 18 30 02/20/20 17:00 103 19 112/74 (87) 02/20/20 16:00 Mechanical Ventilator 02/20/20 16:00 30 02/20/20 16:00 99.3 103 18 108/65 (79) 02/20/20 15:43 102 02/20/20 15:00 102 18 101/60 (74) 98 02/20/20 14:55 105 19 30 02/20/20 14:00 103 19 114/71 (85) 98 02/20/20 13:00 106 18 30 02/20/20 13:00 101 17 108/64 (79) 02/20/20 12:00 Mechanical Ventilator 02/20/20 12:00 30 02/20/20 12:00 97.3 102 19 104/56 (72) 89 02/20/20 11:54 102 02/20/20 11:05 107 16 30 02/20/20 11:00 109 17 108/51 (70) 100 02/20/20 10:00 114 20 125/74 (91) 98 02/20/20 09:39 111 118/74 02/20/20 09:05 111 18 30 02/20/20 09:00 98.3 110 18 118/74 (89) 94 Labs: Labs Test 02/19/20 04:15 02/19/20 08:05 02/20/20 05:30 02/20/20 20:30 White Blood Count 6.4 K/UL (4.8-10.8) 6.8 K/UL (4.8-10.8) Red Blood Count 2.92 M/UL (4.20-5.40) 3.29 M/UL (4.20-5.40) Hemoglobin 9.1 G/DL (12.0-16.0) 10.1 G/DL (12.0-16.0) Hematocrit 28.2 % (37.0-47.0) 31.5 % (37.0-47.0) Mean Corpuscular Volume 97 FL (80-99) 96 FL (80-99) Mean Corpuscular Hemoglobin 31.2 PG (27.0-31.0) 30.8 PG (27.0-31.0) Mean Corpuscular Hemoglobin Concent 32.3 G/DL (32.0-36.0) 32.2 G/DL (32.0-36.0) Red Cell Distribution Width 12.4 % (11.6-14.8) 12.3 % (11.6-14.8) Platelet Count 118 K/UL (150-450) 186 K/UL (150-450) Mean Platelet Volume 9.7 FL (6.5-10.1) 9.5 FL (6.5-10.1) Neutrophils (%) (Auto) 70.7 % (45.0-75.0) 75.9 % (45.0-75.0) Lymphocytes (%) (Auto) 13.5 % (20.0-45.0) 11.3 % (20.0-45.0) Monocytes (%) (Auto) 14.6 % (1.0-10.0) 11.9 % (1.0-10.0) Eosinophils (%) (Auto) 0.4 % (0.0-3.0) 0.4 % (0.0-3.0) Basophils (%) (Auto) 0.7 % (0.0-2.0) 0.6 % (0.0-2.0) Sodium Level 137 MMOL/L (136-145) 138 MMOL/L (136-145) Potassium Level 3.8 MMOL/L (3.5-5.1) 4.4 MMOL/L (3.5-5.1) Chloride Level 107 MMOL/L (98-107) 107 MMOL/L (98-107) Carbon Dioxide Level 20 MMOL/L (21-32) 18 MMOL/L (21-32) Anion Gap 10 mmol/L (5-15) 13 mmol/L (5-15) Blood Urea Nitrogen 17 mg/dL (7-18) 17 mg/dL (7-18) Creatinine 1.0 MG/DL (0.55-1.30) 0.9 MG/DL (0.55-1.30) Estimat Glomerular Filtration Rate > 60 mL/min (>60) > 60 mL/min (>60) Glucose Level 127 MG/DL (74-106) 114 MG/DL (74-106) Calcium Level 8.1 MG/DL (8.5-10.1) 8.1 MG/DL (8.5-10.1) Magnesium Level 2.0 MG/DL (1.8-2.4) 1.9 MG/DL (1.8-2.4) Troponin I 0.118 ng/mL (0.000-0.056) 0.095 ng/mL (0.000-0.056) Pro-B-Type Natriuretic Peptide 02532 pg/mL (0-125) 47525 pg/mL (0-125) Thyroid Stimulating Hormone (TSH) 0.791 uiU/mL (0.358-3.740) Arterial Blood pH 7.357 (7.350-7.450) Arterial Blood Partial Pressure CO2 33.4 mmHg (35.0-45.0) Arterial Blood Partial Pressure O2 82.2 mmHg (75.0-100.0) Arterial Blood HCO3 18.3 mmol/L (22.0-26.0) Arterial Blood Oxygen Saturation 95.5 % (95-100) Arterial Blood Base Excess -6.4 (-2-2) Jax Test Positive Iron Level 53 ug/dL (50-175) Total Iron Binding Capacity 480 ug/dL (250-450) Percent Iron Saturation 11 % (15-50) Unsaturated Iron Binding 427 ug/dL (112-346) Total Bilirubin 0.6 MG/DL (0.2-1.0) Aspartate Amino Transf (AST/SGOT) 49 U/L (15-37) Alanine Aminotransferase (ALT/SGPT) 49 U/L (12-78) Alkaline Phosphatase 198 U/L (46-116) Total Protein 6.2 G/DL (6.4-8.2) Albumin 1.7 G/DL (3.4-5.0) Globulin 4.5 g/dL Albumin/Globulin Ratio 0.4 (1.0-2.7) Carbamazepine (Tegretol) Level 10.2 ug/mL (4.0-12.0) Erythrocyte Sedimentation Rate 90 MM/HR (0-20) Ammonia 46 umol/L (11-32) Vitamin B12 Level > 2000 PG/ML (193-986) Folate 17.5 NG/ML (8.6-58.9) Test 02/21/20 03:20 02/21/20 03:40 Objective: WDWN NAD on vent reduced breath sounds bilaterally without rhonchi or wheeze [id number] without MRG NABS nontender no HSM no CCE nonfocal poor LOC reduced ROM skin noted reviewed and edited feeding tube in place Juan Snow MD Feb 21, 2020 08:44
[2020-02-21] MEDS: levETIRAcetam 1,000mg/NS100ml 100 ML IVPB SCH ×2 (08:45→20:46)
[2020-02-21] MEDS: OPSUMIT 10 MG ORAL SCH (08:46)
[2020-02-21] MEDS: Lacri-Lube Opth Oint 3.5gm BOTH EYES SCH ×3 (08:58→18:46)
[2020-02-21] MEDS ORDERED: Tubing IV Secondary IV ONE (09:04)
[2020-02-21] MEDS ORDERED: NS 275ml ONE (09:04)
--- NOTE | 2020-02-21 10:42 | Infectious Diseases Prog Note ---
Assessment/Plan Assessment/Plan antibiotics : cefepime A 1. acenitobater pneumonia COVID 19 negative 2. respiratory failure 3. neurofibromatosis 4. seizures 5. pulmonary hypertension 6. + blood cultures with coag neg staph likely contaminated P 1. continue iv cefepime 4 more days 2. will follow up cultures Subjective ROS Limited/Unobtainable: Yes Allergies: Coded Allergies: PENICILLINS (Verified Allergy, Severe, 08/07/12) FISH CONTAINING PRODUCTS (Verified Allergy, Unknown, 06/02/18) Uncoded Allergies: seafood (Allergy, Unknown, 06/02/18) Objective Last 24 Hour Vital Signs Date Time Temp Pulse Resp B/P (MAP) Pulse Ox O2 Delivery O2 Flow Rate FiO2 02/21/20 10:00 107 19 30 02/21/20 08:32 109 99/63 02/21/20 08:00 112 02/21/20 08:00 30 02/21/20 07:21 113 18 30 02/21/20 07:00 113 17 109/60 (76) 94 02/21/20 06:30 112 16 94/61 (72) 93 02/21/20 06:30 112 16 02/21/20 06:00 113 17 105/69 (81) 94 02/21/20 05:29 113 20 30 02/21/20 05:00 114 18 99/61 (74) 95 02/21/20 04:00 98.9 111 19 98/66 (77) 100 02/21/20 04:00 Mechanical Ventilator 02/21/20 04:00 30 02/21/20 03:28 108 02/21/20 03:24 116 20 30 02/21/20 03:00 107 19 101/71 (81) 94 02/21/20 02:00 106 17 91/60 (70) 93 02/21/20 01:01 109 20 30 02/21/20 01:00 109 21 97/53 (68) 96 02/21/20 00:00 30 02/21/20 00:00 99.8 110 18 103/63 (76) 93 02/21/20 00:00 Mechanical Ventilator 02/21/20 00:00 110 02/20/20 23:14 111 18 30 02/20/20 23:00 109 18 101/62 (75) 95 02/20/20 22:30 105 19 104/61 (75) 94 02/20/20 22:00 106 20 94/65 (75) 94 02/20/20 21:02 110 20 30 02/20/20 21:00 110 10 126/81 (96) 90 02/20/20 20:32 107 109/70 02/20/20 20:00 Mechanical Ventilator 02/20/20 20:00 30 02/20/20 20:00 107 02/20/20 20:00 99.9 107 14 109/70 (83) 91 02/20/20 19:12 108 22 30 02/20/20 19:00 107 11 112/79 (90) 99 02/20/20 18:00 110 14 102/63 (76) 98 02/20/20 17:00 106 18 30 02/20/20 17:00 103 19 112/74 (87) 02/20/20 16:00 Mechanical Ventilator 02/20/20 16:00 30 02/20/20 16:00 99.3 103 18 108/65 (79) 02/20/20 15:43 102 02/20/20 15:00 102 18 101/60 (74) 98 02/20/20 14:55 105 19 30 02/20/20 14:00 103 19 114/71 (85) 98 02/20/20 13:00 106 18 30 02/20/20 13:00 101 17 108/64 (79) 02/20/20 12:00 Mechanical Ventilator 02/20/20 12:00 30 02/20/20 12:00 97.3 102 19 104/56 (72) 89 02/20/20 11:54 102 02/20/20 11:05 107 16 30 02/20/20 11:00 109 17 108/51 (70) 100 Height (Feet): 5 Height (Inches): 5.00 Weight (Pounds): 140 HEENT: other - intubated Respiratory/Chest: lungs clear Cardiovascular: normal rate, regular rhythm, no gallop/murmur Abdomen: soft, non tender Extremities: other - + edema bilaterally Laboratory Tests Test 02/20/20 20:30 02/21/20 03:20 02/21/20 03:40 Erythrocyte Sedimentation Rate 90 MM/HR (0-20) H Ammonia 46 umol/L (11-32) H Vitamin B12 Level > 2000 PG/ML (193-986) H Vitamin D 25-Hydroxy Pending 25-Hydroxy Vitamin D2 Pending 25-Hydroxy Vitamin D3 Pending Folate 17.5 NG/ML (8.6-58.9) Rapid Plasma Reagin Pending Stool Occult Blood Pending Cortisol AM Sample Pending Current Medications Medications (Trade) Dose Ordered Sig/Brian Route PRN Reason Start Time Stop Time Status Last Admin Dose Admin Acetaminophen (Tylenol) 650 mg Q4H PRN NG Mild Pain (Pain Scale 1-3) 02/14/20 03:00 03/15/20 02:59 02/17/20 05:28 Acetaminophen (Tylenol) 650 mg Q4H PRN NG Temp >100.5 02/14/20 03:00 03/15/20 02:59 02/19/20 21:04 Al Hydroxide/Mg Hydroxide (Mylanta) 30 ml Q4H PRN ORAL Dyspepsia 02/14/20 03:00 03/15/20 02:59 Apixaban (Eliquis) 5 mg BID NGT 02/14/20 09:00 05/14/20 08:59 02/21/20 08:31 Artificial Tears (Lacri-Lube) 1 applic TID BOTH EYES 02/18/20 09:00 03/18/20 09:29 02/21/20 08:58 Aspirin (ASA) 81 mg DAILY NG 02/15/20 09:00 03/31/20 08:59 02/21/20 08:31 Carbamazepine (TEGretol) 200 mg TID NG 02/14/20 09:00 03/15/20 08:59 02/21/20 08:31 Cefepime HCl 1 gm/ Dextrose 55 ml @ 110 mls/hr EVERY 12 HOURS IVPB 02/14/20 11:30 02/21/20 11:29 02/21/20 08:31 Furosemide (Lasix) 20 mg DAILY IV 02/19/20 09:00 03/20/20 08:59 02/21/20 08:32 Gabapentin (Neurontin) 100 mg THREE TIMES A DAY ORAL 02/14/20 09:00 03/15/20 08:59 02/21/20 08:31 Iron Sucrose 100 mg/Sodium Chloride 60 ml @ 240 mls/hr BEDTIME IV 02/20/20 21:00 02/24/20 21:14 02/20/20 20:30 Lansoprazole (Prevacid) 30 mg DAILY NG 02/14/20 09:00 03/15/20 08:59 02/21/20 08:31 Levetiracetam 100 ml @ 400 mls/hr Q12HR IVPB 02/19/20 09:00 05/19/20 08:59 02/21/20 08:45 Lorazepam (Ativan 2mg/ml 1ml) 1 mg Q4H PRN IV For seizures 02/16/20 09:30 02/23/20 09:29 Metoclopramide HCl (Reglan) 5 mg Q6H PRN IVP Nausea & Vomiting 02/19/20 08:15 03/20/20 08:14 02/19/20 12:44 Metoprolol Tartrate (Lopressor) 25 mg Q12HR ORAL 02/15/20 21:00 05/15/20 20:59 02/21/20 08:32 Patient Own Medication (Patient's Own Med) 1 ea DAILY ORAL 02/14/20 13:00 03/15/20 12:59 02/19/20 08:55 Patient Own Medication (Patient's Own Med) 1 ea TID ORAL 02/14/20 13:00 03/15/20 12:59 02/21/20 08:31 Sildenafil Citrate (Revatio) 20 mg TID ORAL 02/14/20 09:00 05/14/20 08:59 02/21/20 08:31 Maci Deleon MD Feb 21, 2020 10:42
--- NOTE | 2020-02-21 16:28 | General Progress Note ---
Assessment/Plan Problem List: (1) Seizure disorder ICD Codes: G40.909 - Epilepsy, unspecified, not intractable,without status epilepticus SNOMED: 807981284 (2) Pulmonary hypertension ICD Codes: I27.20 - Pulmonary hypertension, unspecified SNOMED: 84989390 (3) Respiratory failure ICD Codes: J96.90 - Respiratory failure, unspecified, unspecified whether with hypoxia or hypercapnia SNOMED: 428213635 Qualifiers: Qualified Codes: J96.01 - Acute respiratory failure with hypoxia (4) Severe sepsis ICD Codes: A41.9 - Sepsis, unspecified organism; R65.20 - Severe sepsis without septic shock SNOMED: 20581201 (5) NSTEMI (non-ST elevated myocardial infarction) ICD Codes: I21.4 - Non-ST elevation (NSTEMI) myocardial infarction SNOMED: 42173289 (6) Fever ICD Codes: R50.9 - Fever, unspecified SNOMED: 220835520 (7) Dyspnea ICD Codes: R06.00 - Dyspnea, unspecified SNOMED: 879418290 Status: stable, not improved Assessment/Plan: cont vent support resp care suctioning as needed iv keppra neuro eval appreciated try to get head ct tube feeds reglan for high residuals eliquis check arterial duplex arms and legs remains guarded Subjective ROS Limited/Unobtainable: No Constitutional: Reports: malaise, weakness HEENT: Reports: no symptoms Cardiovascular: Reports: no symptoms Respiratory: Reports: shortness of breath, sputum Gastrointestinal/Abdominal: Reports: difficulty swallowing Genitourinary: Reports: no symptoms Neurologic/Psychiatric: Reports: pre-existing deficit, seizure Endocrine: Reports: no symptoms Hematologic/Lymphatic: Reports: anemia Allergies: Coded Allergies: PENICILLINS (Verified Allergy, Severe, 08/07/12) FISH CONTAINING PRODUCTS (Verified Allergy, Unknown, 06/02/18) Uncoded Allergies: seafood (Allergy, Unknown, 06/02/18) All Systems: reviewed and negative except above Subjective no responsive. on the vent off sedation. neuro appreciated. keppra started yesterday due to abnormal EEG. on ngt feeds. abg noted. tolerated weaning only for 1 hr Objective Last 24 Hour Vital Signs Date Time Temp Pulse Resp B/P (MAP) Pulse Ox O2 Delivery O2 Flow Rate FiO2 02/21/20 15:24 96 18 30 02/21/20 15:00 95 17 101/59 (73) 100 02/21/20 15:00 95 16 101/59 (73) 98 02/21/20 14:00 99 18 111/65 (80) 98 02/21/20 13:00 97 20 100/63 (75) 98 02/21/20 12:00 Mechanical Ventilator 02/21/20 12:00 99.6 99 17 91/64 (73) 99 02/21/20 12:00 112 02/21/20 12:00 30 02/21/20 12:00 99 02/21/20 11:30 108 20 99/69 (79) 100 02/21/20 11:26 113 22 30 02/21/20 11:00 111 23 106/75 (85) 100 02/21/20 10:30 112 22 103/71 (82) 100 02/21/20 10:00 107 19 30 02/21/20 10:00 112 22 110/75 (87) 99 02/21/20 09:30 109 21 103/68 (80) 99 02/21/20 09:00 108 18 107/72 (84) 96 02/21/20 08:32 109 99/63 02/21/20 08:30 110 17 97/65 (76) 95 02/21/20 08:00 112 02/21/20 08:00 Mechanical Ventilator 02/21/20 08:00 100.3 111 18 99/63 (75) 95 02/21/20 08:00 30 02/21/20 07:30 116 25 107/64 (78) 92 02/21/20 07:21 113 18 30 02/21/20 07:00 113 17 109/60 (76) 94 02/21/20 06:30 112 16 94/61 (72) 93 02/21/20 06:30 112 16 02/21/20 06:00 113 17 105/69 (81) 94 02/21/20 05:29 113 20 30 02/21/20 05:00 114 18 99/61 (74) 95 02/21/20 04:00 98.9 111 19 98/66 (77) 100 02/21/20 04:00 Mechanical Ventilator 02/21/20 04:00 30 02/21/20 03:28 108 8/25/20 03:24 116 20 30 02/21/20 03:00 107 19 101/71 (81) 94 02/21/20 02:00 106 17 91/60 (70) 93 02/21/20 01:01 109 20 30 02/21/20 01:00 109 21 97/53 (68) 96 02/21/20 00:00 30 02/21/20 00:00 99.8 110 18 103/63 (76) 93 02/21/20 00:00 Mechanical Ventilator 02/21/20 00:00 110 02/20/20 23:14 111 18 30 02/20/20 23:00 109 18 101/62 (75) 95 02/20/20 22:30 105 19 104/61 (75) 94 02/20/20 22:00 106 20 94/65 (75) 94 02/20/20 21:02 110 20 30 02/20/20 21:00 110 10 126/81 (96) 90 02/20/20 20:32 107 109/70 02/20/20 20:00 Mechanical Ventilator 02/20/20 20:00 30 02/20/20 20:00 107 02/20/20 20:00 99.9 107 14 109/70 (83) 91 02/20/20 19:12 108 22 30 02/20/20 19:00 107 11 112/79 (90) 99 02/20/20 18:00 110 14 102/63 (76) 98 02/20/20 17:00 106 18 30 02/20/20 17:00 103 19 112/74 (87) Intake and Output 02/20/20 02/21/20 19:00 07:00 Intake Total 951.66 ml 375 ml Output Total 1285 ml 230 ml Balance -333.34 ml 145 ml IV Total 591.66 ml 215 ml Tube Feeding 360 ml 120 ml Other 40 ml Output Urine Total 1285 ml 230 ml # Bowel Movements 2 Laboratory Tests 02/20/20 20:30: Erythrocyte Sedimentation Rate 90H, Ammonia 46H, Vitamin B12 Level > 2000H, Vitamin D 25-Hydroxy [Pending], 25-Hydroxy Vitamin D2 [Pending], 25-Hydroxy Vitamin D3 [Pending], Folate 17.5, Rapid Plasma Reagin [Pending] 02/21/20 03:20: Stool Occult Blood Positive 02/21/20 03:40: Cortisol AM Sample [Pending] 02/21/20 11:14: Arterial Blood pH 7.257L, Arterial Blood Partial Pressure CO2 37.3, Arterial Blood Partial Pressure O2 62.6L, Arterial Blood HCO3 16.2*L, Arterial Blood Oxygen Saturation 87.3*L, Arterial Blood Base Excess -10.1*L, Jax Test Positive Height (Feet): 5 Height (Inches): 5.00 Weight (Pounds): 140 Objective General Appearance: WD/WN, confused EENT: PERRL/EOMI, normal ENT inspection Neck: non-tender, normal alignment Cardiovascular: normal peripheral pulses, normal rate Respiratory/Chest: chest wall non-tender, lungs clear, normal breath sounds Abdomen: normal bowel sounds, non tender Edema: no edema noted Arm (L), no edema noted Arm (R) Neurologic: disoriented, unresponsive Skin: normal pigmentation Lymphatic: normal anterior cervical (L), normal anterior cervical (R) Liborio Dugan MD Feb 21, 2020 16:28
--- NOTE | 2020-02-21 17:51 | Diagnostic Imaging Report ---
EXAM: CT Head Without Intravenous Contrast CLINICAL HISTORY: AMS TECHNIQUE: Axial computed tomography images of the head/brain without intravenous contrast. CTDI is 53.4 mGy and DLP is 983.5 mGy-cm. One or more of the following dose reduction techniques were used: automated exposure control, adjustment of the mA and/or kV according to patient size, use of iterative reconstruction technique. COMPARISON: 12/05/2019. FINDINGS: Brain: Innumerable bilateral meningiomas are again noted compatible with patient's history of neurofibromatosis. White matter edema of the left cerebellar hemisphere and the right cerebral hemisphere is again noted with some mass-effect upon the right lateral ventricle unchanged from the previous study. No hemorrhage. Ventricles: Appearance of the ventricular system is stable. Appears to the fourth ventricle and posterior fossa is stable. Bones/joints: The calvarium is unremarkable. No acute fracture. Soft tissues: Unremarkable. Sinuses: Mild to moderate chronic ethmoid sinusitis. Mastoid air cells: Mastoid air cells are well pneumatized to IMPRESSION: 1. CT imaging of the brain is stable and unchanged from 12/05/2019. 2. Given the patient's history, magnetic resonance imaging of the brain with diffusion-weighted sequences is advised to assess for the possibility of early acute lacunar infarcts.
--- NOTE | 2020-02-21 19:01 | Neurology Progress Note ---
Interim History Interim History Interim History Ms. Roseann Srinivasan is a 49-year-old, black lady, of unknown handedness, who does have a past history of neurofibromatosis, a seizure disorder, pulmonary hypertension, deafness of an unknown degree, and visual problems of an unknown degree. She was hospitalized on 02/13/2020 and altered mental state preceded by failure to thrive, fever and possibly shaking chills, and a global decline in function. It was felt that she may have urinary tract infection. She was intubated and artificially ventilated, started on intravenous fluids, and antibiotics, and was observed in the ICU. She does have a history of seizures but has not been observed to have any seizures during hospitalization. She continues to be comatose. There is been no significant change in her medical or neurological condition. It is still unclear as to what exactly her baseline neurological function was. Review of Systems Neuro Review of Systems Unable to obtain. Objective Physical Exam Last Vital Signs Date Time Temp Pulse Resp B/P (MAP) Pulse Ox O2 Delivery O2 Flow Rate FiO2 02/21/20 18:00 95 17 107/64 (78) 99 02/21/20 16:01 98.6 02/21/20 16:00 Mechanical Ventilator 02/21/20 16:00 30 02/14/20 12:20 5.0 Laboratory Tests Test 02/20/20 20:30 02/21/20 03:20 02/21/20 03:40 02/21/20 11:14 Erythrocyte Sedimentation Rate 90 MM/HR (0-20) H Ammonia 46 umol/L (11-32) H Vitamin B12 Level > 2000 PG/ML (193-986) H Vitamin D 25-Hydroxy Pending 25-Hydroxy Vitamin D2 Pending 25-Hydroxy Vitamin D3 Pending Folate 17.5 NG/ML (8.6-58.9) Rapid Plasma Reagin Pending Stool Occult Blood Positive (NEGATIVE) Cortisol AM Sample Pending Arterial Blood pH 7.257 (7.350-7.450) Arterial Blood Partial Pressure CO2 37.3 mmHg (35.0-45.0) Arterial Blood Partial Pressure O2 62.6 mmHg (75.0-100.0) L Arterial Blood HCO3 16.2 mmol/L (22.0-26.0) *L Arterial Blood Oxygen Saturation 87.3 % (95-100) *L Arterial Blood Base Excess -10.1 (-2-2) *L Jax Test Positive Neurologic Exam Objective PHYSICAL EXAMINATION: GENERAL: She is a well-developed, relatively well-nourished, black lady, lying in intensive care unit bed, connected to ventilator via an endotracheal tube. HEAD: Normocephalic and atraumatic. NECK: No neck rigidity was observed. EENT: She had bilateral chemosis involving the left side more than the right. SPINE: Cervical, thoracic and lumbosacral spine revealed no tenderness or paraspinal muscle spasm. NEUROLOGIC EXAMINATION: MENTAL STATUS EXAMINATION: She was comatose and did not respond even to deep painful stimuli. Further mental status testing was impossible. SPEECH: Could not be tested. LANGUAGE: Could not be tested. CRANIAL NERVE EXAMINATION: II: She did not blink to threat. III, IV, : External ocular movements were present but restricted on oculocephalic maneuvers. The pupils were 3 mm in diameter equal, round, regular and did not react to light. V & VII: The corneal reflexes were present but subdued bilaterally. VIII: She did not respond to sounds and had no nystagmus. IX & X: The gag reflex was absent on manipulating the endotracheal tube. XI: The sternocleidomastoids and trapezii did not function. XII: The tongue could not be examined properly. MOTOR SYSTEM: The tone was diminished in all 4 extremities. Examination of muscle mass revealed generalized muscle wasting. Examination of power was impossible to perform because even on applying deep painful stimuli no responses were seen. SENSORY EXAMINATION: She did not respond even to deep painful stimuli. REFLEXES: 0 at the biceps, triceps, brachioradialis, knees and ankles. The plantar responses were mute bilaterally. COORDINATION, STANCE & GAIT: Not be tested. ABNORMAL MOVEMENTS: None Impression/Recommendations Diagnostic Impression DIAGNOSTIC IMPRESSION: 1. Ms. Roseann Srinivasan is a 49-year-old, black lady, of unknown handedness, who does have a past history of neurofibromatosis, a seizure disorder, pulmonary hypertension, deafness of an unknown degree, and visual problems of an unknown degree. 2. She was hospitalized on 02/13/2020 and altered mental state preceded by failure to thrive, fever and possibly shaking chills, and a global decline in function. It was felt that she may have urinary tract infection. She was intubated and artificially ventilated, started on intravenous fluids, and antibiotics, and was observed in the ICU. 3. She does have a history of seizures but has not been observed to have any seizures during hospitalization. 4. An EEG performed on 02/18/2020 revealed: An encephalopathy of a moderate degree with a toxic metabolic component. Right temporal focal dysfunction. A right temporal epileptogenic focus with phase reversals in the mid temporal region. 5. On neurological examination at this time she is comatose and does not respond to any external stimuli. She does have brainstem reflexes in the form of eye movements on oculocephalic maneuvers, corneal reflexes, and spontaneous ventilations. She did does not exhibit any limb movements even on applying deep painful stimuli. Her deep tendon reflexes are globally absent and the plantar responses mute. 6. Her latest laboratory data on my initial evaluation revealed an anemia with a hemoglobin of 10.1 g, AST elevated at 49, alkaline phosphate is elevated at 198, proBNP elevated at 11,463, normal PO2 at 83, minimally low PCO2 at 33, normal TSH, and a therapeutic Tegretol level at 10.2. 7. Further laboratory tests have revealed a normal vitamin B12 level, normal folate, ammonia level elevated at 46, and an elevated ESR at 90. 8. The CT scan of the brain without contrast performed on 02/21/2020 revealed "Innumerable bilateral meningiomas, white matter edema of the left cerebellar hemisphere and the right cerebral hemisphere, mass-effect upon the right lateral ventricle with shift of the midline structures from the right to the left, loss of salas-white differentiation, but no acute pathology." The findings are very similar to a scan performed in November 2019. 9. The patient's history, neurological examination, CT scan of the brain and EEG are most consistent with a significant toxic metabolic encephalopathy superimposed on significant structural brain disease but seems to be old. At this point in time it is unknown if the patient may also have acute intracranial pathology as an MRI scan cannot be obtained. 10. With regards to her seizure disorder, the patient has not had any clinical seizures while hospitalized and in addition the EEG also did not reveal any seizures but did reveal interictal phenomena emanating from the right temporal region. Recommendations RECOMMENDATIONS: 1. Continue present management. 2. It may be worth giving her a trial of Decadron 4 mg 3 times a day for the next 5 days or so to determine if there is any improvement in her condition with decrease in cerebral edema. 4. Continue prehospitalization anticonvulsant regimen. 5. Try to determine the patient's prehospitalization baseline and to when exactly she was able to talk and walk. 6. Observe closely. Otoniel Ellis M.D., M.S.P.H. Neurologist & Clinical Neurophysiologist Otoniel Ellis MD Feb 21, 2020 19:01
[2020-02-21 19:32] LABS: ALANINE AMINOTRANSFERASE 46 U/L (12-78); ALBUMIN 1.6 G/DL (3.4-5.0); ALBUMIN/GLOBULIN RATIO 0.4 (1.0-2.7); ALKALINE PHOSPHATASE 190 U/L (46-116); ANION GAP 13 mmol/L (5-15); ASPARTATE AMINO TRANSFERASE 39 U/L (15-37); BILIRUBIN,TOTAL 0.3 MG/DL (0.2-1.0); BLOOD UREA NITROGEN 27 mg/dL (7-18); CALCIUM 7.7 MG/DL (8.5-10.1); CARBON DIOXIDE 20 MMOL/L (21-32); CHLORIDE 108 MMOL/L (98-107); CREATININE 1.2 MG/DL (0.55-1.30); POTASSIUM 4.6 MMOL/L (3.5-5.1); SODIUM 141 MMOL/L (136-145)
[2020-02-21] MEDS: Iron Sucrose 100 MG in NS 55 ML IV SCH (20:45)
[2020-02-22] VITALS (31 sets, daily range): BP systolic 97–138; BP diastolic 50–88
--- NOTE | 2020-02-22 02:28 | Cardiology Progress Note ---
Subjective DATE OF SERVICE: Feb 21, 2020 On vent support - 30% FIO2; ABG 7.26/37/63 BP remains stable in low-normal range No new fever spikes. Per neuro, no seizure activity noted Monitor: sinus tachycardia and sinus rhythm Troponin levels trending down. CXR (02/19/20) worsening infiltrate on left and persisting on right. Objective Last 24 Hour Vital Signs Date Time Temp Pulse Resp B/P (MAP) Pulse Ox O2 Delivery O2 Flow Rate FiO2 02/22/20 01:21 92 17 30 02/22/20 01:00 94 16 134/82 (99) 02/22/20 00:00 98.6 92 17 106/64 (78) 02/22/20 00:00 30 02/22/20 00:00 Mechanical Ventilator 02/22/20 00:00 99 02/21/20 23:00 84 17 104/64 (77) 02/21/20 23:00 99 15 30 02/21/20 22:00 95 16 99/65 (76) 02/21/20 21:00 100 19 115/66 (82) 99 02/21/20 20:51 101 121/67 02/21/20 20:40 101 17 30 02/21/20 20:00 102 02/21/20 20:00 98.3 99 18 102/78 (86) 02/21/20 20:00 Mechanical Ventilator 02/21/20 20:00 30 02/21/20 19:00 95 16 99/81 (87) 02/21/20 18:35 96 20 30 02/21/20 18:00 95 17 107/64 (78) 99 02/21/20 17:00 96 17 114/63 (80) 99 02/21/20 16:01 98.6 99 18 107/62 (77) 97 02/21/20 16:00 99 02/21/20 16:00 Mechanical Ventilator 02/21/20 16:00 30 02/21/20 16:00 99 18 107/62 (77) 97 02/21/20 15:24 96 18 30 02/21/20 15:00 95 17 101/59 (73) 100 02/21/20 15:00 95 16 101/59 (73) 98 02/21/20 14:00 99 18 111/65 (80) 98 02/21/20 13:00 97 20 100/63 (75) 98 02/21/20 12:00 Mechanical Ventilator 02/21/20 12:00 99.6 99 17 91/64 (73) 99 02/21/20 12:00 112 02/21/20 12:00 30 02/21/20 12:00 99 02/21/20 11:30 108 20 99/69 (79) 100 02/21/20 11:26 113 22 30 02/21/20 11:00 111 23 106/75 (85) 100 02/21/20 10:30 112 22 103/71 (82) 100 02/21/20 10:00 107 19 30 02/21/20 10:00 112 22 110/75 (87) 99 02/21/20 09:30 109 21 103/68 (80) 99 02/21/20 09:00 108 18 107/72 (84) 96 02/21/20 08:32 109 99/63 02/21/20 08:30 110 17 97/65 (76) 95 02/21/20 08:00 112 02/21/20 08:00 Mechanical Ventilator 02/21/20 08:00 100.3 111 18 99/63 (75) 95 02/21/20 08:00 30 02/21/20 07:30 116 25 107/64 (78) 92 02/21/20 07:21 113 18 30 02/21/20 07:00 113 17 109/60 (76) 94 02/21/20 06:30 112 16 94/61 (72) 93 02/21/20 06:30 112 16 02/21/20 06:00 113 17 105/69 (81) 94 02/21/20 05:29 113 20 30 02/21/20 05:00 114 18 99/61 (74) 95 02/21/20 04:00 98.9 111 19 98/66 (77) 100 02/21/20 04:00 Mechanical Ventilator 02/21/20 04:00 30 02/21/20 03:28 108 02/21/20 03:24 116 20 30 02/21/20 03:00 107 19 101/71 (81) 94 ROS: no change from my evaluation on 02/14/20 HEENT: Orally intubated RHYTHM: ST LUNGS: bilateral rhonchi CARDIAC: regular rhythm, normal S1 and S2, rapid rate, tachycardia ABDOMEN: normal bowel sounds, non tender, soft EXTREMITIES: non-tender, trace edema Laboratory Tests Test 02/21/20 03:20 02/21/20 03:40 02/21/20 11:14 02/21/20 18:50 Stool Occult Blood Positive (NEGATIVE) Cortisol AM Sample 21.2 UG/DL Arterial Blood pH 7.257 (7.350-7.450) Arterial Blood Partial Pressure CO2 37.3 mmHg (35.0-45.0) Arterial Blood Partial Pressure O2 62.6 mmHg (75.0-100.0) L Arterial Blood HCO3 16.2 mmol/L (22.0-26.0) *L Arterial Blood Oxygen Saturation 87.3 % (95-100) *L Arterial Blood Base Excess -10.1 (-2-2) *L Jax Test Positive Sodium Level 141 MMOL/L (136-145) Potassium Level 4.6 MMOL/L (3.5-5.1) Chloride Level 108 MMOL/L (98-107) H Carbon Dioxide Level 20 MMOL/L (21-32) L Anion Gap 13 mmol/L (5-15) Blood Urea Nitrogen 27 mg/dL (7-18) H Creatinine 1.2 MG/DL (0.55-1.30) Estimat Glomerular Filtration Rate 57.9 mL/min (>60) Glucose Level 142 MG/DL (74-106) H Lactic Acid Level 0.90 mmol/L (0.4-2.0) Calcium Level 7.7 MG/DL (8.5-10.1) L Total Bilirubin 0.3 MG/DL (0.2-1.0) Aspartate Amino Transf (AST/SGOT) 39 U/L (15-37) H Alanine Aminotransferase (ALT/SGPT) 46 U/L (12-78) Alkaline Phosphatase 190 U/L (46-116) H Total Protein 5.3 G/DL (6.4-8.2) L Albumin 1.6 G/DL (3.4-5.0) L Globulin 3.7 g/dL Albumin/Globulin Ratio 0.4 (1.0-2.7) L Assessment/Plan Assessment/Plan Respiratory Failure UTI Sepsis with shock Acute myocardial infarction (NSTE) Neurofibromatosis Hypokalemia Hypomagnesemia Hypovolemia Pulmonary Hypertension Aspiration PNA Metabolic encephalopathy Chronic sz disorder Metabolic acidosis Fluid challenge as needed; hope to avoid pressors. Vent support anti-plt and anti-coagulant rx for now Anti-microbials per ID Beta blockade with hold parameters for low BP. Maintain IVF Anti-sz therapy Resp rx Marcus Main MD Feb 22, 2020 02:28
--- NOTE | 2020-02-22 07:58 | General Progress Note ---
Assessment/Plan Problem List: (1) Seizure disorder ICD Codes: G40.909 - Epilepsy, unspecified, not intractable,without status epilepticus SNOMED: 036666863 (2) Pulmonary hypertension ICD Codes: I27.20 - Pulmonary hypertension, unspecified SNOMED: 41410259 (3) Respiratory failure ICD Codes: J96.90 - Respiratory failure, unspecified, unspecified whether with hypoxia or hypercapnia SNOMED: 569199876 Qualifiers: Qualified Codes: J96.01 - Acute respiratory failure with hypoxia (4) Severe sepsis ICD Codes: A41.9 - Sepsis, unspecified organism; R65.20 - Severe sepsis without septic shock SNOMED: 50204777 (5) NSTEMI (non-ST elevated myocardial infarction) ICD Codes: I21.4 - Non-ST elevation (NSTEMI) myocardial infarction SNOMED: 81272417 (6) Fever ICD Codes: R50.9 - Fever, unspecified SNOMED: 260726797 (7) Dyspnea ICD Codes: R06.00 - Dyspnea, unspecified SNOMED: 873108791 Assessment/Plan: cont vent support resp care wean as able iv steroids sz rx neuro eval appreciated tube feeds reglan for high residuals eliquis remains guarded Subjective ROS Limited/Unobtainable: Yes Constitutional: Reports: malaise, weakness HEENT: Reports: no symptoms Cardiovascular: Reports: no symptoms Respiratory: Reports: no symptoms Gastrointestinal/Abdominal: Reports: difficulty swallowing Genitourinary: Reports: no symptoms Neurologic/Psychiatric: Reports: pre-existing deficit, seizure Endocrine: Reports: no symptoms Hematologic/Lymphatic: Reports: anemia Allergies: Coded Allergies: PENICILLINS (Verified Allergy, Severe, 08/07/12) FISH CONTAINING PRODUCTS (Verified Allergy, Unknown, 06/02/18) Uncoded Allergies: seafood (Allergy, Unknown, 06/02/18) All Systems: reviewed and negative except above Subjective remains unresponsive on the vent. no szs noted. ct with multiple lesions and edema. started on iv steroids. no congestion. failed weaning. Objective Last 24 Hour Vital Signs Date Time Temp Pulse Resp B/P (MAP) Pulse Ox O2 Delivery O2 Flow Rate FiO2 02/22/20 07:35 95 19 30 02/22/20 06:30 86 20 02/22/20 06:00 88 17 101/64 (76) 02/22/20 05:00 92 17 125/64 (84) 02/22/20 04:50 92 16 30 02/22/20 04:00 87 02/22/20 04:00 Mechanical Ventilator 02/22/20 04:00 30 02/22/20 04:00 98.2 88 18 134/66 (88) 95 02/22/20 03:00 88 15 133/84 (100) 96 02/22/20 03:00 94 14 30 02/22/20 02:00 88 15 106/67 (80) 94 02/22/20 01:21 92 17 30 02/22/20 01:00 94 16 134/82 (99) 02/22/20 00:00 98.6 92 17 106/64 (78) 02/22/20 00:00 30 02/22/20 00:00 Mechanical Ventilator 02/22/20 00:00 99 02/21/20 23:00 84 17 104/64 (77) 02/21/20 23:00 99 15 30 02/21/20 22:00 95 16 99/65 (76) 02/21/20 21:00 100 19 115/66 (82) 99 02/21/20 20:51 101 121/67 02/21/20 20:40 101 17 30 02/21/20 20:00 102 02/21/20 20:00 98.3 99 18 102/78 (86) 02/21/20 20:00 Mechanical Ventilator 02/21/20 20:00 30 02/21/20 19:00 95 16 99/81 (87) 02/21/20 18:35 96 20 30 02/21/20 18:00 95 17 107/64 (78) 99 02/21/20 17:00 96 17 114/63 (80) 99 02/21/20 16:01 98.6 99 18 107/62 (77) 97 02/21/20 16:00 99 02/21/20 16:00 Mechanical Ventilator 02/21/20 16:00 30 02/21/20 16:00 99 18 107/62 (77) 97 02/21/20 15:24 96 18 30 02/21/20 15:00 95 17 101/59 (73) 100 02/21/20 15:00 95 16 101/59 (73) 98 02/21/20 14:00 99 18 111/65 (80) 98 02/21/20 13:00 97 20 100/63 (75) 98 02/21/20 12:00 Mechanical Ventilator 02/21/20 12:00 99.6 99 17 91/64 (73) 99 02/21/20 12:00 112 02/21/20 12:00 30 02/21/20 12:00 99 02/21/20 11:30 108 20 99/69 (79) 100 02/21/20 11:26 113 22 30 02/21/20 11:00 111 23 106/75 (85) 100 02/21/20 10:30 112 22 103/71 (82) 100 02/21/20 10:00 107 19 30 02/21/20 10:00 112 22 110/75 (87) 99 02/21/20 09:30 109 21 103/68 (80) 99 02/21/20 09:00 108 18 107/72 (84) 96 02/21/20 08:32 109 99/63 02/21/20 08:30 110 17 97/65 (76) 95 02/21/20 08:00 112 02/21/20 08:00 Mechanical Ventilator 02/21/20 08:00 100.3 111 18 99/63 (75) 95 02/21/20 08:00 30 Intake and Output 02/21/20 02/22/20 19:00 07:00 Intake Total 1045 ml 580 ml Output Total 955 ml 310 ml Balance 90 ml 270 ml Free Water 230 ml 60 ml IV Total 455 ml 160 ml Tube Feeding 360 ml 360 ml Output Urine Total 955 ml 310 ml Laboratory Tests 02/21/20 11:14: Arterial Blood pH 7.257L, Arterial Blood Partial Pressure CO2 37.3, Arterial Blood Partial Pressure O2 62.6L, Arterial Blood HCO3 16.2*L, Arterial Blood Oxygen Saturation 87.3*L, Arterial Blood Base Excess -10.1*L, Jax Test Positive 02/21/20 18:50: Sodium Level 141, Potassium Level 4.6, Chloride Level 108H, Carbon Dioxide Level 20L, Anion Gap 13, Blood Urea Nitrogen 27H, Creatinine 1.2, Estimat Glomerular Filtration Rate 57.9, Glucose Level 142H, Lactic Acid Level 0.90, Calcium Level 7.7L, Total Bilirubin 0.3, Aspartate Amino Transf (AST/SGOT) 39H, Alanine Aminotransferase (ALT/SGPT) 46, Alkaline Phosphatase 190H, Total Protein 5.3L, Albumin 1.6L, Globulin 3.7, Albumin/Globulin Ratio 0.4L Height (Feet): 5 Height (Inches): 5.00 Weight (Pounds): 145 Objective General Appearance: WD/WN, confused EENT: PERRL/EOMI, normal ENT inspection Neck: non-tender, normal alignment Cardiovascular: normal peripheral pulses, normal rate Respiratory/Chest: chest wall non-tender, lungs clear, normal breath sounds Abdomen: normal bowel sounds, non tender Edema: no edema noted Arm (L), no edema noted Arm (R) Neurologic: disoriented, unresponsive Skin: normal pigmentation Lymphatic: normal anterior cervical (L), normal anterior cervical (R) Liborio Dugan MD Feb 22, 2020 07:58
[2020-02-22] MEDS: OPSUMIT 10 MG ORAL SCH (09:00)
[2020-02-22 09:11] LABS: HEMATOCRIT 29.9 % (37.0-47.0); HEMOGLOBIN 9.8 G/DL (12.0-16.0); MEAN CORPUSCULAR VOLUME 95 FL (80-99); PLATELET COUNT 271 K/UL (150-450); RED BLOOD COUNT 3.16 M/UL (4.20-5.40); RED CELL DISTRIBUTION WIDTH 12.5 % (11.6-14.8); WHITE BLOOD COUNT 11.1 K/UL (4.8-10.8)
[2020-02-22 09:23] LABS: ALANINE AMINOTRANSFERASE 49 U/L (12-78); ALBUMIN 1.5 G/DL (3.4-5.0); ALBUMIN/GLOBULIN RATIO 0.3 (1.0-2.7); ALKALINE PHOSPHATASE 186 U/L (46-116); ANION GAP 11 mmol/L (5-15); ASPARTATE AMINO TRANSFERASE 51 U/L (15-37); BILIRUBIN,TOTAL 0.3 MG/DL (0.2-1.0); BLOOD UREA NITROGEN 28 mg/dL (7-18); CALCIUM 8.5 MG/DL (8.5-10.1); CARBON DIOXIDE 20 MMOL/L (21-32); CHLORIDE 108 MMOL/L (98-107); CREATININE 1.1 MG/DL (0.55-1.30); SODIUM 139 MMOL/L (136-145)
[2020-02-22] MEDS: SELEXIPAG ORAL SCH ×3 (09:31→17:14)
[2020-02-22] MEDS: carBAMazepine 200mg tab NG SCH ×3 (09:32→17:14)
[2020-02-22] MEDS: levETIRAcetam 1,000mg/NS100ml 100 ML IVPB SCH ×2 (09:32→21:50)
[2020-02-22] MEDS: Aspirin Baby 81mg NG SCH (09:32)
[2020-02-22] MEDS: Eliquis 5mg tablet NGT SCH ×2 (09:32→17:14)
[2020-02-22] MEDS: Revatio 20mg tab ORAL SCH ×3 (09:32→17:14)
--- NOTE | 2020-02-22 09:40 | Critical Care Progress Note ---
Assessment/Plan Assessment/Plan respiratory failure pneumonia improved by CXR pulmonary hypertension elevated troponin possible NSTEMI paraplegia hypoxemia seizure history brain masses, chronic moderate PCM PLAN care noted arterial duplex of the extremities negative IV antibiotics noted respiratory care and nursing care noted Ventilatory support on- trying to wean again today mental status remains poor monitor acid base and adjust supportive care suction as needed monitor heart rate seizure meds- as is oxygen therapy prognosis improved nutrition off load and monitor skin update family as to status may need trach medications/laboratory data/nursing notes/ICU care reviewed in detail note reviewed and edited care discussed with RN and RT ICU time spent >40 minutes Critical Care - Subjective Interval Events: trying to wean on CPAP and noted settings Head Ct without change ROS Limited/Unobtainable: Yes Condition: critical EKG Rhythm: Sinus Rhythm Residuals: minimal Tube Feeding Tolerated: yes I&O: Intake and Output 02/21/20 02/22/20 19:00 07:00 Intake Total 1045 ml 580 ml Output Total 955 ml 310 ml Balance 90 ml 270 ml Free Water 230 ml 60 ml IV Total 455 ml 160 ml Tube Feeding 360 ml 360 ml Output Urine Total 955 ml 310 ml Critical Care - Objective ET-Tube: 7.0 ET Position: 23 Last 24 Hour Vital Signs Date Time Temp Pulse Resp B/P (MAP) Pulse Ox O2 Delivery O2 Flow Rate FiO2 02/22/20 09:33 95 127/77 02/22/20 08:58 108 16 30 02/22/20 08:56 100 02/22/20 07:35 95 19 30 02/22/20 06:30 86 20 02/22/20 06:00 88 17 101/64 (76) 02/22/20 05:00 92 17 125/64 (84) 02/22/20 04:50 92 16 30 02/22/20 04:00 87 02/22/20 04:00 Mechanical Ventilator 02/22/20 04:00 30 02/22/20 04:00 98.2 88 18 134/66 (88) 95 02/22/20 03:00 88 15 133/84 (100) 96 02/22/20 03:00 94 14 30 02/22/20 02:00 88 15 106/67 (80) 94 02/22/20 01:21 92 17 30 02/22/20 01:00 94 16 134/82 (99) 02/22/20 00:00 98.6 92 17 106/64 (78) 02/22/20 00:00 30 02/22/20 00:00 Mechanical Ventilator 02/22/20 00:00 99 02/21/20 23:00 84 17 104/64 (77) 02/21/20 23:00 99 15 30 02/21/20 22:00 95 16 99/65 (76) 02/21/20 21:00 100 19 115/66 (82) 99 02/21/20 20:51 101 121/67 02/21/20 20:40 101 17 30 02/21/20 20:00 102 02/21/20 20:00 98.3 99 18 102/78 (86) 02/21/20 20:00 Mechanical Ventilator 02/21/20 20:00 30 02/21/20 19:00 95 16 99/81 (87) 02/21/20 18:35 96 20 30 02/21/20 18:00 95 17 107/64 (78) 99 02/21/20 17:00 96 17 114/63 (80) 99 02/21/20 16:01 98.6 99 18 107/62 (77) 97 02/21/20 16:00 99 02/21/20 16:00 Mechanical Ventilator 02/21/20 16:00 30 02/21/20 16:00 99 18 107/62 (77) 97 02/21/20 15:24 96 18 30 02/21/20 15:00 95 17 101/59 (73) 100 02/21/20 15:00 95 16 101/59 (73) 98 02/21/20 14:00 99 18 111/65 (80) 98 02/21/20 13:00 97 20 100/63 (75) 98 02/21/20 12:00 Mechanical Ventilator 02/21/20 12:00 99.6 99 17 91/64 (73) 99 02/21/20 12:00 112 02/21/20 12:00 30 02/21/20 12:00 99 02/21/20 11:30 108 20 99/69 (79) 100 02/21/20 11:26 113 22 30 02/21/20 11:00 111 23 106/75 (85) 100 02/21/20 10:30 112 22 103/71 (82) 100 02/21/20 10:00 107 19 30 02/21/20 10:00 112 22 110/75 (87) 99 Labs: Laboratory Tests Test 02/21/20 11:14 02/21/20 18:50 02/22/20 08:45 Arterial Blood pH 7.257 (7.350-7.450) Arterial Blood Partial Pressure CO2 37.3 mmHg (35.0-45.0) Arterial Blood Partial Pressure O2 62.6 mmHg (75.0-100.0) L Arterial Blood HCO3 16.2 mmol/L (22.0-26.0) *L Arterial Blood Oxygen Saturation 87.3 % (95-100) *L Arterial Blood Base Excess -10.1 (-2-2) *L Jax Test Positive Sodium Level 141 MMOL/L (136-145) 139 MMOL/L (136-145) Potassium Level 4.6 MMOL/L (3.5-5.1) 5.0 MMOL/L (3.5-5.1) Chloride Level 108 MMOL/L (98-107) H 108 MMOL/L (98-107) H Carbon Dioxide Level 20 MMOL/L (21-32) L 20 MMOL/L (21-32) L Anion Gap 13 mmol/L (5-15) 11 mmol/L (5-15) Blood Urea Nitrogen 27 mg/dL (7-18) H 28 mg/dL (7-18) H Creatinine 1.2 MG/DL (0.55-1.30) 1.1 MG/DL (0.55-1.30) Estimat Glomerular Filtration Rate 57.9 mL/min (>60) > 60 mL/min (>60) Glucose Level 142 MG/DL (74-106) H 164 MG/DL (74-106) H Lactic Acid Level 0.90 mmol/L (0.4-2.0) Calcium Level 7.7 MG/DL (8.5-10.1) L 8.5 MG/DL (8.5-10.1) Total Bilirubin 0.3 MG/DL (0.2-1.0) 0.3 MG/DL (0.2-1.0) Aspartate Amino Transf (AST/SGOT) 39 U/L (15-37) H 51 U/L (15-37) H Alanine Aminotransferase (ALT/SGPT) 46 U/L (12-78) 49 U/L (12-78) Alkaline Phosphatase 190 U/L (46-116) H 186 U/L (46-116) H Total Protein 5.3 G/DL (6.4-8.2) L 6.3 G/DL (6.4-8.2) L Albumin 1.6 G/DL (3.4-5.0) L 1.5 G/DL (3.4-5.0) L Globulin 3.7 g/dL 4.8 g/dL Albumin/Globulin Ratio 0.4 (1.0-2.7) L 0.3 (1.0-2.7) L White Blood Count 11.1 K/UL (4.8-10.8) H Red Blood Count 3.16 M/UL (4.20-5.40) L Hemoglobin 9.8 G/DL (12.0-16.0) L Hematocrit 29.9 % (37.0-47.0) L Mean Corpuscular Volume 95 FL (80-99) Mean Corpuscular Hemoglobin 30.9 PG (27.0-31.0) Mean Corpuscular Hemoglobin Concent 32.7 G/DL (32.0-36.0) Red Cell Distribution Width 12.5 % (11.6-14.8) Platelet Count 271 K/UL (150-450) Mean Platelet Volume 7.7 FL (6.5-10.1) Neutrophils (%) (Auto) % (45.0-75.0) Lymphocytes (%) (Auto) % (20.0-45.0) Monocytes (%) (Auto) % (1.0-10.0) Eosinophils (%) (Auto) % (0.0-3.0) Basophils (%) (Auto) % (0.0-2.0) Neutrophils % (Manual) Pending Lymphocytes % (Manual) Pending Platelet Estimate Pending Platelet Morphology Pending Objective: WDWN NAD on vent reduced breath sounds bilaterally without rhonchi or wheeze [id number] without MRG NABS nontender no HSM no CCE nonfocal poor LOC reduced ROM skin noted reviewed and edited feeding tube in place Juan Snow MD Feb 22, 2020 09:40
[2020-02-22] MEDS: Lacri-Lube Opth Oint 3.5gm BOTH EYES SCH ×3 (09:55→17:15)
--- NOTE | 2020-02-22 11:17 | Infectious Diseases Prog Note ---
Assessment/Plan Assessment/Plan antibiotics : cefepime A 1. acenitobacter pneumonia COVID 19 negative 2. respiratory failure 3. neurofibromatosis 4. seizures 5. pulmonary hypertension 6. + blood cultures with coag neg staph likely contaminated P 1. continue iv cefepime 3 more days 2. will follow up cultures Subjective ROS Limited/Unobtainable: Yes Allergies: Coded Allergies: PENICILLINS (Verified Allergy, Severe, 08/07/12) FISH CONTAINING PRODUCTS (Verified Allergy, Unknown, 06/02/18) Uncoded Allergies: seafood (Allergy, Unknown, 06/02/18) Objective Last 24 Hour Vital Signs Date Time Temp Pulse Resp B/P (MAP) Pulse Ox O2 Delivery O2 Flow Rate FiO2 02/22/20 11:02 89 18 30 02/22/20 10:00 104 17 134/80 (98) 97 02/22/20 09:33 95 127/77 02/22/20 09:30 95 17 123/78 (93) 96 02/22/20 09:26 96 17 127/77 (94) 95 02/22/20 09:00 103 16 138/83 (101) 100 02/22/20 08:58 108 16 30 02/22/20 08:56 100 02/22/20 08:30 90 18 107/58 (74) 100 02/22/20 08:00 Mechanical Ventilator 02/22/20 08:00 30 02/22/20 08:00 97.9 87 18 113/66 (82) 99 02/22/20 07:35 95 19 30 02/22/20 07:30 93 16 134/88 (103) 98 02/22/20 06:30 86 20 02/22/20 06:00 88 17 101/64 (76) 02/22/20 05:00 92 17 125/64 (84) 02/22/20 04:50 92 16 30 02/22/20 04:00 87 02/22/20 04:00 Mechanical Ventilator 02/22/20 04:00 30 02/22/20 04:00 98.2 88 18 134/66 (88) 95 02/22/20 03:00 88 15 133/84 (100) 96 02/22/20 03:00 94 14 30 02/22/20 02:00 88 15 106/67 (80) 94 02/22/20 01:21 92 17 30 8/26/20 01:00 94 16 134/82 (99) 02/22/20 00:00 98.6 92 17 106/64 (78) 02/22/20 00:00 30 02/22/20 00:00 Mechanical Ventilator 02/22/20 00:00 99 02/21/20 23:00 84 17 104/64 (77) 02/21/20 23:00 99 15 30 02/21/20 22:00 95 16 99/65 (76) 02/21/20 21:00 100 19 115/66 (82) 99 02/21/20 20:51 101 121/67 02/21/20 20:40 101 17 30 02/21/20 20:00 102 02/21/20 20:00 98.3 99 18 102/78 (86) 02/21/20 20:00 Mechanical Ventilator 02/21/20 20:00 30 02/21/20 19:00 95 16 99/81 (87) 02/21/20 18:35 96 20 30 02/21/20 18:00 95 17 107/64 (78) 99 02/21/20 17:00 96 17 114/63 (80) 99 02/21/20 16:01 98.6 99 18 107/62 (77) 97 02/21/20 16:00 99 02/21/20 16:00 Mechanical Ventilator 02/21/20 16:00 30 02/21/20 16:00 99 18 107/62 (77) 97 02/21/20 15:24 96 18 30 02/21/20 15:00 95 17 101/59 (73) 100 02/21/20 15:00 95 16 101/59 (73) 98 02/21/20 14:00 99 18 111/65 (80) 98 02/21/20 13:00 97 20 100/63 (75) 98 02/21/20 12:00 Mechanical Ventilator 02/21/20 12:00 99.6 99 17 91/64 (73) 99 02/21/20 12:00 112 02/21/20 12:00 30 02/21/20 12:00 99 02/21/20 11:30 108 20 99/69 (79) 100 02/21/20 11:26 113 22 30 Height (Feet): 5 Height (Inches): 5.00 Weight (Pounds): 145 HEENT: other - intubated Respiratory/Chest: lungs clear Cardiovascular: normal rate, regular rhythm, no gallop/murmur Abdomen: soft, non tender Extremities: other - + edema Laboratory Tests Test 02/21/20 18:50 02/22/20 08:45 Sodium Level 141 MMOL/L (136-145) 139 MMOL/L (136-145) Potassium Level 4.6 MMOL/L (3.5-5.1) 5.0 MMOL/L (3.5-5.1) Chloride Level 108 MMOL/L (98-107) H 108 MMOL/L (98-107) H Carbon Dioxide Level 20 MMOL/L (21-32) L 20 MMOL/L (21-32) L Anion Gap 13 mmol/L (5-15) 11 mmol/L (5-15) Blood Urea Nitrogen 27 mg/dL (7-18) H 28 mg/dL (7-18) H Creatinine 1.2 MG/DL (0.55-1.30) 1.1 MG/DL (0.55-1.30) Estimat Glomerular Filtration Rate 57.9 mL/min (>60) > 60 mL/min (>60) Glucose Level 142 MG/DL (74-106) H 164 MG/DL (74-106) H Lactic Acid Level 0.90 mmol/L (0.4-2.0) Calcium Level 7.7 MG/DL (8.5-10.1) L 8.5 MG/DL (8.5-10.1) Total Bilirubin 0.3 MG/DL (0.2-1.0) 0.3 MG/DL (0.2-1.0) Aspartate Amino Transf (AST/SGOT) 39 U/L (15-37) H 51 U/L (15-37) H Alanine Aminotransferase (ALT/SGPT) 46 U/L (12-78) 49 U/L (12-78) Alkaline Phosphatase 190 U/L (46-116) H 186 U/L (46-116) H Total Protein 5.3 G/DL (6.4-8.2) L 6.3 G/DL (6.4-8.2) L Albumin 1.6 G/DL (3.4-5.0) L 1.5 G/DL (3.4-5.0) L Globulin 3.7 g/dL 4.8 g/dL Albumin/Globulin Ratio 0.4 (1.0-2.7) L 0.3 (1.0-2.7) L White Blood Count 11.1 K/UL (4.8-10.8) H Red Blood Count 3.16 M/UL (4.20-5.40) L Hemoglobin 9.8 G/DL (12.0-16.0) L Hematocrit 29.9 % (37.0-47.0) L Mean Corpuscular Volume 95 FL (80-99) Mean Corpuscular Hemoglobin 30.9 PG (27.0-31.0) Mean Corpuscular Hemoglobin Concent 32.7 G/DL (32.0-36.0) Red Cell Distribution Width 12.5 % (11.6-14.8) Platelet Count 271 K/UL (150-450) Mean Platelet Volume 7.7 FL (6.5-10.1) Neutrophils (%) (Auto) % (45.0-75.0) Lymphocytes (%) (Auto) % (20.0-45.0) Monocytes (%) (Auto) % (1.0-10.0) Eosinophils (%) (Auto) % (0.0-3.0) Basophils (%) (Auto) % (0.0-2.0) Differential Total Cells Counted 100 Neutrophils % (Manual) 83 % (45-75) H Lymphocytes % (Manual) 12 % (20-45) L Monocytes % (Manual) 5 % (1-10) Eosinophils % (Manual) 0 % (0-3) Basophils % (Manual) 0 % (0-2) Band Neutrophils 0 % (0-8) Platelet Estimate Adequate Platelet Morphology Normal Red Blood Cell Morphology Normal Current Medications Medications (Trade) Dose Ordered Sig/Brian Route PRN Reason Start Time Stop Time Status Last Admin Dose Admin Acetaminophen (Tylenol) 650 mg Q4H PRN NG Mild Pain (Pain Scale 1-3) 02/14/20 03:00 03/15/20 02:59 02/17/20 05:28 Acetaminophen (Tylenol) 650 mg Q4H PRN NG Temp >100.5 02/14/20 03:00 03/15/20 02:59 02/19/20 21:04 Al Hydroxide/Mg Hydroxide (Mylanta) 30 ml Q4H PRN ORAL Dyspepsia 02/14/20 03:00 03/15/20 02:59 Apixaban (Eliquis) 5 mg BID NGT 02/14/20 09:00 05/14/20 08:59 02/22/20 09:32 Artificial Tears (Lacri-Lube) 1 applic TID BOTH EYES 02/18/20 09:00 03/18/20 09:29 02/22/20 09:55 Aspirin (ASA) 81 mg DAILY NG 02/15/20 09:00 03/31/20 08:59 02/22/20 09:32 Carbamazepine (TEGretol) 200 mg TID NG 02/14/20 09:00 03/15/20 08:59 02/22/20 09:32 Dexamethasone Sodium Phosphate (Decadron 4mg/ml vial) 4 mg EVERY 8 HOURS IVP 02/21/20 22:00 02/26/20 14:01 02/22/20 05:26 Furosemide (Lasix) 20 mg DAILY IV 02/19/20 09:00 03/20/20 08:59 02/22/20 09:32 Gabapentin (Neurontin) 100 mg THREE TIMES A DAY ORAL 02/14/20 09:00 03/15/20 08:59 02/22/20 09:33 Iron Sucrose 100 mg/Sodium Chloride 60 ml @ 240 mls/hr BEDTIME IV 02/20/20 21:00 02/24/20 21:14 02/21/20 20:45 Lansoprazole (Prevacid) 30 mg DAILY NG 02/14/20 09:00 03/15/20 08:59 02/22/20 09:32 Levetiracetam 100 ml @ 400 mls/hr Q12HR IVPB 02/19/20 09:00 05/19/20 08:59 02/22/20 09:32 Lorazepam (Ativan 2mg/ml 1ml) 1 mg Q4H PRN IV For seizures 02/16/20 09:30 02/23/20 09:29 Metoclopramide HCl (Reglan) 5 mg Q6H PRN IVP Nausea & Vomiting 02/19/20 08:15 9/22/20 08:14 02/19/20 12:44 Metoprolol Tartrate (Lopressor) 25 mg Q12HR ORAL 02/15/20 21:00 05/15/20 20:59 02/22/20 09:33 Patient Own Medication (Patient's Own Med) 1 ea DAILY ORAL 02/14/20 13:00 03/15/20 12:59 02/19/20 08:55 Patient Own Medication (Patient's Own Med) 1 ea TID ORAL 02/14/20 13:00 03/15/20 12:59 02/22/20 09:31 Sildenafil Citrate (Revatio) 20 mg TID ORAL 02/14/20 09:00 05/14/20 08:59 02/22/20 09:32 Maci Deleon MD Feb 22, 2020 11:17
--- NOTE | 2020-02-22 13:11 | Neurology Progress Note ---
Interim History Interim History Interim History Ms. Roseann Srinivasan is a 49-year-old, black lady, of unknown handedness, who does have a past history of neurofibromatosis, a seizure disorder, pulmonary hypertension, deafness of an unknown degree, and visual problems of an unknown degree. She was hospitalized on 02/13/2020 and altered mental state preceded by failure to thrive, fever and possibly shaking chills, and a global decline in function. It was felt that she may have urinary tract infection. She was intubated and artificially ventilated, started on intravenous fluids, and antibiotics, and was observed in the ICU. She does have a history of seizures but has not been observed to have any seizures during hospitalization. She continues to be comatose. There is been no significant change in her medical or neurological condition. It is still unclear as to what exactly her baseline neurological function was. Review of Systems Neuro Review of Systems Unable to obtain. Objective Physical Exam Last Vital Signs Date Time Temp Pulse Resp B/P (MAP) Pulse Ox O2 Delivery O2 Flow Rate FiO2 02/22/20 12:44 88 21 30 02/22/20 12:00 107/67 (80) 100 02/22/20 08:00 Mechanical Ventilator 02/22/20 08:00 97.9 02/14/20 12:20 5.0 Laboratory Tests Test 02/21/20 18:50 02/22/20 08:45 Sodium Level 141 MMOL/L (136-145) 139 MMOL/L (136-145) Potassium Level 4.6 MMOL/L (3.5-5.1) 5.0 MMOL/L (3.5-5.1) Chloride Level 108 MMOL/L (98-107) H 108 MMOL/L (98-107) H Carbon Dioxide Level 20 MMOL/L (21-32) L 20 MMOL/L (21-32) L Anion Gap 13 mmol/L (5-15) 11 mmol/L (5-15) Blood Urea Nitrogen 27 mg/dL (7-18) H 28 mg/dL (7-18) H Creatinine 1.2 MG/DL (0.55-1.30) 1.1 MG/DL (0.55-1.30) Estimat Glomerular Filtration Rate 57.9 mL/min (>60) > 60 mL/min (>60) Glucose Level 142 MG/DL (74-106) H 164 MG/DL (74-106) H Lactic Acid Level 0.90 mmol/L (0.4-2.0) Calcium Level 7.7 MG/DL (8.5-10.1) L 8.5 MG/DL (8.5-10.1) Total Bilirubin 0.3 MG/DL (0.2-1.0) 0.3 MG/DL (0.2-1.0) Aspartate Amino Transf (AST/SGOT) 39 U/L (15-37) H 51 U/L (15-37) H Alanine Aminotransferase (ALT/SGPT) 46 U/L (12-78) 49 U/L (12-78) Alkaline Phosphatase 190 U/L (46-116) H 186 U/L (46-116) H Total Protein 5.3 G/DL (6.4-8.2) L 6.3 G/DL (6.4-8.2) L Albumin 1.6 G/DL (3.4-5.0) L 1.5 G/DL (3.4-5.0) L Globulin 3.7 g/dL 4.8 g/dL Albumin/Globulin Ratio 0.4 (1.0-2.7) L 0.3 (1.0-2.7) L White Blood Count 11.1 K/UL (4.8-10.8) H Red Blood Count 3.16 M/UL (4.20-5.40) L Hemoglobin 9.8 G/DL (12.0-16.0) L Hematocrit 29.9 % (37.0-47.0) L Mean Corpuscular Volume 95 FL (80-99) Mean Corpuscular Hemoglobin 30.9 PG (27.0-31.0) Mean Corpuscular Hemoglobin Concent 32.7 G/DL (32.0-36.0) Red Cell Distribution Width 12.5 % (11.6-14.8) Platelet Count 271 K/UL (150-450) Mean Platelet Volume 7.7 FL (6.5-10.1) Neutrophils (%) (Auto) % (45.0-75.0) Lymphocytes (%) (Auto) % (20.0-45.0) Monocytes (%) (Auto) % (1.0-10.0) Eosinophils (%) (Auto) % (0.0-3.0) Basophils (%) (Auto) % (0.0-2.0) Differential Total Cells Counted 100 Neutrophils % (Manual) 83 % (45-75) H Lymphocytes % (Manual) 12 % (20-45) L Monocytes % (Manual) 5 % (1-10) Eosinophils % (Manual) 0 % (0-3) Basophils % (Manual) 0 % (0-2) Band Neutrophils 0 % (0-8) Platelet Estimate Adequate Platelet Morphology Normal Red Blood Cell Morphology Normal Neurologic Exam Objective PHYSICAL EXAMINATION: GENERAL: She is a well-developed, relatively well-nourished, black lady, lying in intensive care unit bed, connected to ventilator via an endotracheal tube. HEAD: Normocephalic and atraumatic. NECK: No neck rigidity was observed. EENT: She had bilateral chemosis involving the left side more than the right. SPINE: Cervical, thoracic and lumbosacral spine revealed no tenderness or paraspinal muscle spasm. NEUROLOGIC EXAMINATION: MENTAL STATUS EXAMINATION: She was comatose and did not respond even to deep painful stimuli. Further mental status testing was impossible. SPEECH: Could not be tested. LANGUAGE: Could not be tested. CRANIAL NERVE EXAMINATION: II: She did not blink to threat. III, IV, : External ocular movements were present but restricted on oculocephalic maneuvers. The pupils were 3 mm in diameter equal, round, regular and did not react to light. V & VII: The corneal reflexes were present but subdued bilaterally. VIII: She did not respond to sounds and had no nystagmus. IX & X: The gag reflex was absent on manipulating the endotracheal tube. XI: The sternocleidomastoids and trapezii did not function. XII: The tongue could not be examined properly. MOTOR SYSTEM: The tone was diminished in all 4 extremities. Examination of muscle mass revealed generalized muscle wasting. Examination of power was impossible to perform because even on applying deep painful stimuli no responses were seen. SENSORY EXAMINATION: She did not respond even to deep painful stimuli. REFLEXES: 0 at the biceps, triceps, brachioradialis, knees and ankles. The plantar responses were mute bilaterally. COORDINATION, STANCE & GAIT: Not be tested. ABNORMAL MOVEMENTS: None Impression/Recommendations Diagnostic Impression DIAGNOSTIC IMPRESSION: 1. Ms. Roseann Srinivasan is a 49-year-old, black lady, of unknown handedness, who does have a past history of neurofibromatosis, a seizure disorder, pulmonary hypertension, deafness of an unknown degree, and visual problems of an unknown degree. 2. She was hospitalized on 02/13/2020 and altered mental state preceded by failure to thrive, fever and possibly shaking chills, and a global decline in function. It was felt that she may have urinary tract infection. She was intubated and artificially ventilated, started on intravenous fluids, and antibiotics, and was observed in the ICU. 3. She does have a history of seizures but has not been observed to have any seizures during hospitalization. 4. An EEG performed on 02/18/2020 revealed: An encephalopathy of a moderate degree with a toxic metabolic component. Right temporal focal dysfunction. A right temporal epileptogenic focus with phase reversals in the mid temporal region. 5. On neurological examination at this time she is comatose and does not respond to any external stimuli. She does have brainstem reflexes in the form of eye movements on oculocephalic maneuvers, corneal reflexes, and spontaneous ventilations. She did does not exhibit any limb movements even on applying deep painful stimuli. Her deep tendon reflexes are globally absent and the plantar responses mute. 6. Her latest laboratory data on my initial evaluation revealed an anemia with a hemoglobin of 10.1 g, AST elevated at 49, alkaline phosphate is elevated at 198, proBNP elevated at 11,463, normal PO2 at 83, minimally low PCO2 at 33, normal TSH, and a therapeutic Tegretol level at 10.2. 7. Further laboratory tests have revealed a normal vitamin B12 level, normal folate, ammonia level elevated at 46, and an elevated ESR at 90. 8. The CT scan of the brain without contrast performed on 02/21/2020 revealed "Innumerable bilateral meningiomas, white matter edema of the left cerebellar hemisphere and the right cerebral hemisphere, mass-effect upon the right lateral ventricle with shift of the midline structures from the right to the left, loss of salas-white differentiation, but no acute pathology." The findings are very similar to a scan performed in November 2019. 9. The patient's history, neurological examination, CT scan of the brain and EEG are most consistent with a significant toxic metabolic encephalopathy superimposed on significant structural brain disease but seems to be old. At this point in time it is unknown if the patient may also have acute intracranial pathology as an MRI scan cannot be obtained. 10. With regards to her seizure disorder, the patient has not had any clinical seizures while hospitalized and in addition the EEG also did not reveal any seizures but did reveal interictal phenomena emanating from the right temporal region. Recommendations RECOMMENDATIONS: 1. Continue present management. 2. Continue trial of Decadron 4 mg 3 times a day for a total of 5 days or so to determine if there is any improvement in her condition with decrease in cerebral edema. 3. Continue prehospitalization anticonvulsant regimen. 4. Try to determine the patient's prehospitalization baseline and to when exactly she was able to talk and walk. 5. Observe closely. Otoniel Ellis M.D., M.S.P.H. Neurologist & Clinical Neurophysiologist Otoniel Ellis MD Feb 22, 2020 13:11
[2020-02-22] MEDS: Cefepime HCl 2 GM in D5W 55 ML IVPB SCH ×2 (13:31→22:21)
[2020-02-22] MEDS: Iron Sucrose 100 MG in NS 55 ML IV SCH (21:49)
[2020-02-23] VITALS (24 sets, daily range): BP systolic 91–122; BP diastolic 52–79
--- NOTE | 2020-02-23 01:36 | Cardiology Progress Note ---
Subjective DATE OF SERVICE: Feb 22, 2020 On vent support - 30% FIO2 BP remains stable in low-normal range No new fever spikes. Per neuro, no seizure activity noted Monitor: sinus tachycardia and sinus rhythm Troponin levels trending down. CXR (02/19/20) worsening infiltrate on left and persisting on right. Objective Last 24 Hour Vital Signs Date Time Temp Pulse Resp B/P (MAP) Pulse Ox O2 Delivery O2 Flow Rate FiO2 02/23/20 01:12 88 17 50 02/23/20 00:00 Mechanical Ventilator 02/22/20 23:12 79 18 50 02/22/20 22:00 89 16 117/71 (86) 100 02/22/20 21:49 88 114/70 02/22/20 21:00 86 17 107/67 (80) 99 02/22/20 20:38 50 02/22/20 20:37 92 18 30 02/22/20 20:00 Mechanical Ventilator 02/22/20 20:00 30 02/22/20 20:00 97.8 87 15 118/69 (85) 100 02/22/20 19:19 76 19 30 02/22/20 19:00 74 15 100/64 (76) 02/22/20 18:00 74 18 109/59 (76) 100 02/22/20 17:00 78 19 30 02/22/20 17:00 76 18 97/50 (66) 100 02/22/20 16:01 98.2 77 19 116/65 (82) 100 02/22/20 16:00 80 02/22/20 16:00 77 19 116/65 (82) 100 02/22/20 16:00 Mechanical Ventilator 02/22/20 15:05 87 18 30 02/22/20 15:00 30 02/22/20 15:00 87 20 100/59 (73) 02/22/20 14:30 87 17 107/63 (78) 02/22/20 14:00 91 18 103/67 (79) 98 02/22/20 13:30 85 19 102/72 (82) 100 02/22/20 13:00 91 20 102/64 (77) 100 02/22/20 12:44 88 21 30 02/22/20 12:01 98.2 92 24 107/67 (80) 100 02/22/20 12:00 Mechanical Ventilator 02/22/20 12:00 92 24 107/67 (80) 100 02/22/20 12:00 30 02/22/20 12:00 90 02/22/20 11:02 89 18 30 02/22/20 11:00 95 20 100/65 (77) 97 02/22/20 10:00 104 17 134/80 (98) 97 02/22/20 09:33 95 127/77 02/22/20 09:30 95 17 123/78 (93) 96 02/22/20 09:26 96 17 127/77 (94) 95 02/22/20 09:00 103 16 138/83 (101) 100 02/22/20 08:58 108 16 30 02/22/20 08:56 100 02/22/20 08:30 90 18 107/58 (74) 100 02/22/20 08:00 89 02/22/20 08:00 Mechanical Ventilator 02/22/20 08:00 30 02/22/20 08:00 97.9 87 18 113/66 (82) 99 02/22/20 07:35 95 19 30 02/22/20 07:30 93 16 134/88 (103) 98 02/22/20 06:30 86 20 02/22/20 06:00 88 17 101/64 (76) 02/22/20 05:00 92 17 125/64 (84) 02/22/20 04:50 92 16 30 02/22/20 04:00 87 02/22/20 04:00 Mechanical Ventilator 02/22/20 04:00 30 02/22/20 04:00 98.2 88 18 134/66 (88) 95 02/22/20 03:00 88 15 133/84 (100) 96 02/22/20 03:00 94 14 30 02/22/20 02:00 88 15 106/67 (80) 94 ROS: no change from my evaluation on 02/14/20 HEENT: Orally intubated RHYTHM: ST LUNGS: bilateral rhonchi CARDIAC: regular rhythm, normal S1 and S2, rapid rate, tachycardia ABDOMEN: normal bowel sounds, non tender, soft EXTREMITIES: non-tender, trace edema Laboratory Tests Test 02/22/20 08:45 White Blood Count 11.1 K/UL (4.8-10.8) H Red Blood Count 3.16 M/UL (4.20-5.40) L Hemoglobin 9.8 G/DL (12.0-16.0) L Hematocrit 29.9 % (37.0-47.0) L Mean Corpuscular Volume 95 FL (80-99) Mean Corpuscular Hemoglobin 30.9 PG (27.0-31.0) Mean Corpuscular Hemoglobin Concent 32.7 G/DL (32.0-36.0) Red Cell Distribution Width 12.5 % (11.6-14.8) Platelet Count 271 K/UL (150-450) Mean Platelet Volume 7.7 FL (6.5-10.1) Neutrophils (%) (Auto) % (45.0-75.0) Lymphocytes (%) (Auto) % (20.0-45.0) Monocytes (%) (Auto) % (1.0-10.0) Eosinophils (%) (Auto) % (0.0-3.0) Basophils (%) (Auto) % (0.0-2.0) Differential Total Cells Counted 100 Neutrophils % (Manual) 83 % (45-75) H Lymphocytes % (Manual) 12 % (20-45) L Monocytes % (Manual) 5 % (1-10) Eosinophils % (Manual) 0 % (0-3) Basophils % (Manual) 0 % (0-2) Band Neutrophils 0 % (0-8) Platelet Estimate Adequate Platelet Morphology Normal Red Blood Cell Morphology Normal Sodium Level 139 MMOL/L (136-145) Potassium Level 5.0 MMOL/L (3.5-5.1) Chloride Level 108 MMOL/L (98-107) H Carbon Dioxide Level 20 MMOL/L (21-32) L Anion Gap 11 mmol/L (5-15) Blood Urea Nitrogen 28 mg/dL (7-18) H Creatinine 1.1 MG/DL (0.55-1.30) Estimat Glomerular Filtration Rate > 60 mL/min (>60) Glucose Level 164 MG/DL (74-106) H Calcium Level 8.5 MG/DL (8.5-10.1) Total Bilirubin 0.3 MG/DL (0.2-1.0) Aspartate Amino Transf (AST/SGOT) 51 U/L (15-37) H Alanine Aminotransferase (ALT/SGPT) 49 U/L (12-78) Alkaline Phosphatase 186 U/L (46-116) H Total Protein 6.3 G/DL (6.4-8.2) L Albumin 1.5 G/DL (3.4-5.0) L Globulin 4.8 g/dL Albumin/Globulin Ratio 0.3 (1.0-2.7) L Assessment/Plan Assessment/Plan Respiratory Failure UTI Sepsis with shock Acute myocardial infarction (NSTE) Neurofibromatosis with edema Hypokalemia Hypomagnesemia Hypovolemia Pulmonary Hypertension Aspiration PNA Seizure Disorder Vent support Anti-sz meds Steroids initiated anti-plt rx and anticoagulation for now Beta blockade Maintain IVF Antimicrobials and resp rx Avoid pressors Marcus Main MD Feb 23, 2020 01:36
--- NOTE | 2020-02-23 08:37 | Critical Care Progress Note ---
Assessment/Plan Assessment/Plan respiratory failure pneumonia improved by CXR pulmonary hypertension elevated troponin possible NSTEMI paraplegia hypoxemia seizure history brain masses, chronic moderate PCM PLAN care noted- with family; trach and peg next week if unable to wean IV antibiotics noted respiratory care and nursing care noted Ventilatory support on- trying to wean daily mental status remains poor monitor acid base and adjust supportive care suction as needed monitor heart rate seizure meds- as is oxygen therapy prognosis improved nutrition off load and monitor skin update family as to status will likely need subacute care medications/laboratory data/nursing notes/ICU care reviewed in detail note reviewed and edited care discussed with RN and RT ICU time spent >40 minutes Critical Care - Subjective Interval Events: care noted on vent d/w family would want trach and peg if unable to wean aware of LOC ROS Limited/Unobtainable: Yes Condition: critical EKG Rhythm: Sinus Rhythm Residuals: minimal Tube Feeding Tolerated: yes I&O: Intake and Output 02/22/20 02/23/20 19:00 07:00 Intake Total 735 ml 345 ml Output Total 450 ml 305 ml Balance 285 ml 40 ml Free Water 170 ml 90 ml IV Total 155 ml Tube Feeding 360 ml 255 ml Other 50 ml Output Urine Total 450 ml 305 ml Critical Care - Objective ET-Tube: 7.0 ET Position: 23 Last 24 Hour Vital Signs Date Time Temp Pulse Resp B/P (MAP) Pulse Ox O2 Delivery O2 Flow Rate FiO2 02/23/20 07:00 85 16 109/68 (82) 02/23/20 07:00 89 19 50 02/23/20 06:30 90 15 02/23/20 06:00 86 15 122/76 (91) 02/23/20 05:00 86 16 114/79 (91) 02/23/20 04:34 80 16 50 02/23/20 04:00 98.2 81 15 106/62 (77) 02/23/20 04:00 Mechanical Ventilator 02/23/20 04:00 87 02/23/20 04:00 30 02/23/20 03:40 75 15 50 02/23/20 03:00 78 17 116/66 (83) 02/23/20 02:00 74 19 107/62 (77) 02/23/20 01:12 88 17 50 02/23/20 01:00 77 14 110/68 (82) 02/23/20 00:00 30 02/23/20 00:00 Mechanical Ventilator 02/23/20 00:00 79 02/23/20 00:00 98.1 77 16 111/63 (79) 02/22/20 23:12 79 18 50 02/22/20 23:00 77 18 108/63 (78) 02/22/20 22:00 89 16 117/71 (86) 100 02/22/20 21:49 88 114/70 02/22/20 21:00 86 17 107/67 (80) 99 02/22/20 20:38 50 02/22/20 20:37 92 18 30 02/22/20 20:00 Mechanical Ventilator 02/22/20 20:00 30 02/22/20 20:00 77 02/22/20 20:00 97.8 87 15 118/69 (85) 100 02/22/20 19:19 76 19 30 02/22/20 19:00 74 15 100/64 (76) 02/22/20 18:00 74 18 109/59 (76) 100 02/22/20 17:00 78 19 30 02/22/20 17:00 76 18 97/50 (66) 100 02/22/20 16:01 98.2 77 19 116/65 (82) 100 02/22/20 16:00 80 02/22/20 16:00 77 19 116/65 (82) 100 02/22/20 16:00 Mechanical Ventilator 02/22/20 15:05 87 18 30 02/22/20 15:00 30 02/22/20 15:00 87 20 100/59 (73) 02/22/20 14:30 87 17 107/63 (78) 02/22/20 14:00 91 18 103/67 (79) 98 02/22/20 13:30 85 19 102/72 (82) 100 02/22/20 13:00 91 20 102/64 (77) 100 02/22/20 12:44 88 21 30 02/22/20 12:01 98.2 92 24 107/67 (80) 100 02/22/20 12:00 Mechanical Ventilator 02/22/20 12:00 92 24 107/67 (80) 100 02/22/20 12:00 30 02/22/20 12:00 90 02/22/20 11:02 89 18 30 02/22/20 11:00 95 20 100/65 (77) 97 02/22/20 10:00 104 17 134/80 (98) 97 02/22/20 09:33 95 127/77 02/22/20 09:30 95 17 123/78 (93) 96 02/22/20 09:26 96 17 127/77 (94) 95 02/22/20 09:00 103 16 138/83 (101) 100 02/22/20 08:58 108 16 30 02/22/20 08:56 100 Labs: Labs Test 02/20/20 20:30 02/21/20 03:20 02/21/20 03:40 02/21/20 11:14 Erythrocyte Sedimentation Rate 90 MM/HR (0-20) Ammonia 46 umol/L (11-32) Vitamin B12 Level > 2000 PG/ML (193-986) Folate 17.5 NG/ML (8.6-58.9) Rapid Plasma Reagin Non reactive (Non Reactive) Stool Occult Blood Positive (NEGATIVE) Cortisol AM Sample 21.2 UG/DL Arterial Blood pH 7.257 (7.350-7.450) Arterial Blood Partial Pressure CO2 37.3 mmHg (35.0-45.0) Arterial Blood Partial Pressure O2 62.6 mmHg (75.0-100.0) Arterial Blood HCO3 16.2 mmol/L (22.0-26.0) Arterial Blood Oxygen Saturation 87.3 % (95-100) Arterial Blood Base Excess -10.1 (-2-2) Jax Test Positive Test 02/21/20 18:50 02/22/20 08:45 Sodium Level 141 MMOL/L (136-145) 139 MMOL/L (136-145) Potassium Level 4.6 MMOL/L (3.5-5.1) 5.0 MMOL/L (3.5-5.1) Chloride Level 108 MMOL/L (98-107) 108 MMOL/L (98-107) Carbon Dioxide Level 20 MMOL/L (21-32) 20 MMOL/L (21-32) Anion Gap 13 mmol/L (5-15) 11 mmol/L (5-15) Blood Urea Nitrogen 27 mg/dL (7-18) 28 mg/dL (7-18) Creatinine 1.2 MG/DL (0.55-1.30) 1.1 MG/DL (0.55-1.30) Estimat Glomerular Filtration Rate 57.9 mL/min (>60) > 60 mL/min (>60) Glucose Level 142 MG/DL (74-106) 164 MG/DL (74-106) Lactic Acid Level 0.90 mmol/L (0.4-2.0) Calcium Level 7.7 MG/DL (8.5-10.1) 8.5 MG/DL (8.5-10.1) Total Bilirubin 0.3 MG/DL (0.2-1.0) 0.3 MG/DL (0.2-1.0) Aspartate Amino Transf (AST/SGOT) 39 U/L (15-37) 51 U/L (15-37) Alanine Aminotransferase (ALT/SGPT) 46 U/L (12-78) 49 U/L (12-78) Alkaline Phosphatase 190 U/L (46-116) 186 U/L (46-116) Total Protein 5.3 G/DL (6.4-8.2) 6.3 G/DL (6.4-8.2) Albumin 1.6 G/DL (3.4-5.0) 1.5 G/DL (3.4-5.0) Globulin 3.7 g/dL 4.8 g/dL Albumin/Globulin Ratio 0.4 (1.0-2.7) 0.3 (1.0-2.7) White Blood Count 11.1 K/UL (4.8-10.8) Red Blood Count 3.16 M/UL (4.20-5.40) Hemoglobin 9.8 G/DL (12.0-16.0) Hematocrit 29.9 % (37.0-47.0) Mean Corpuscular Volume 95 FL (80-99) Mean Corpuscular Hemoglobin 30.9 PG (27.0-31.0) Mean Corpuscular Hemoglobin Concent 32.7 G/DL (32.0-36.0) Red Cell Distribution Width 12.5 % (11.6-14.8) Platelet Count 271 K/UL (150-450) Mean Platelet Volume 7.7 FL (6.5-10.1) Neutrophils (%) (Auto) % (45.0-75.0) Lymphocytes (%) (Auto) % (20.0-45.0) Monocytes (%) (Auto) % (1.0-10.0) Eosinophils (%) (Auto) % (0.0-3.0) Basophils (%) (Auto) % (0.0-2.0) Differential Total Cells Counted 100 Neutrophils % (Manual) 83 % (45-75) Lymphocytes % (Manual) 12 % (20-45) Monocytes % (Manual) 5 % (1-10) Eosinophils % (Manual) 0 % (0-3) Basophils % (Manual) 0 % (0-2) Band Neutrophils 0 % (0-8) Platelet Estimate Adequate Platelet Morphology Normal Red Blood Cell Morphology Normal Objective: WDWN NAD on vent reduced breath sounds bilaterally without rhonchi or wheeze [id number] without MRG NABS nontender no HSM no CCE nonfocal poor LOC reduced ROM skin noted reviewed and edited feeding tube in place Juan Snow MD Feb 23, 2020 08:37
[2020-02-23] MEDS: SELEXIPAG ORAL SCH ×3 (09:23→18:23)
[2020-02-23] MEDS: OPSUMIT 10 MG ORAL SCH (09:23)
[2020-02-23] MEDS: Aspirin Baby 81mg NG SCH (09:24)
[2020-02-23] MEDS: carBAMazepine 200mg tab NG SCH ×3 (09:24→18:13)
[2020-02-23] MEDS: levETIRAcetam 1,000mg/NS100ml 100 ML IVPB SCH ×2 (09:24→20:56)
[2020-02-23] MEDS: Cefepime HCl 2 GM in D5W 55 ML IVPB SCH ×2 (09:24→20:57)
[2020-02-23] MEDS: Revatio 20mg tab ORAL SCH ×3 (09:24→18:12)
[2020-02-23] MEDS: Eliquis 5mg tablet NGT SCH ×2 (09:25→18:13)
[2020-02-23] MEDS: Lacri-Lube Opth Oint 3.5gm BOTH EYES SCH ×3 (10:09→18:13)
--- NOTE | 2020-02-23 10:51 | Neurology Progress Note ---
Interim History Interim History Interim History Ms. Roseann Srinivasan is a 49-year-old, black lady, of unknown handedness, who does have a past history of neurofibromatosis, a seizure disorder, pulmonary hypertension, deafness of an unknown degree, and visual problems of an unknown degree. She was hospitalized on 02/13/2020 for an altered mental state preceded by failure to thrive, fever and possibly shaking chills, and a global decline in function. It was felt that she may have a urinary tract infection. She was intubated and artificially ventilated, started on intravenous fluids, and antibiotics, and was observed in the ICU. She does have a history of seizures but has not been observed to have any seizures during her hospitalization. She continues to be comatose. There is been no significant change in her medical or neurological condition. It is still unclear as to what exactly her baseline neurological function was prior to this admission. Review of Systems Neuro Review of Systems Unable to obtain. Objective Physical Exam Last Vital Signs Date Time Temp Pulse Resp B/P (MAP) Pulse Ox O2 Delivery O2 Flow Rate FiO2 02/23/20 09:30 40 02/23/20 09:26 84 113/76 02/23/20 09:00 17 02/23/20 04:00 98.2 02/23/20 04:00 Mechanical Ventilator 02/22/20 22:00 100 02/14/20 12:20 5.0 Neurologic Exam Objective PHYSICAL EXAMINATION: GENERAL: She is a well-developed, relatively well-nourished, black lady, lying in intensive care unit bed, connected to ventilator via an endotracheal tube. HEAD: Normocephalic and atraumatic. NECK: No neck rigidity was observed. EENT: She had bilateral chemosis involving the left side more than the right. SPINE: Cervical, thoracic and lumbosacral spine revealed no tenderness or paraspinal muscle spasm. NEUROLOGIC EXAMINATION: MENTAL STATUS EXAMINATION: She was comatose. She only responded to deep pain with nonpurposeful withdrawal in both upper extremities and no response in both lower extremities. Further mental status testing was impossible. SPEECH: Could not be tested. LANGUAGE: Could not be tested. CRANIAL NERVE EXAMINATION: II: She did not blink to threat. III, IV, : External ocular movements were present but restricted on oculocephalic maneuvers. The pupils were 3 mm in diameter equal, round, regular and did not react to light. V & VII: The corneal reflexes were absent bilaterally. VIII: She did not respond to sounds and had no nystagmus. IX & X: The gag reflex was absent on manipulating the endotracheal tube. XI: The sternocleidomastoids and trapezii did not function. XII: The tongue could not be examined properly. MOTOR SYSTEM: The tone was diminished in all 4 extremities. Examination of muscle mass revealed generalized muscle wasting. Examination of power was impossible to perform because even on applying deep painful stimuli the only response seen was nonpurposeful withdrawal in both upper extremities. SENSORY EXAMINATION: She only responded to deep pain with nonpurposeful withdrawal in both upper extremities. REFLEXES: 0 at the biceps, triceps, brachioradialis, knees and ankles. The plantar responses were mute bilaterally. COORDINATION, STANCE & GAIT: Not be tested. ABNORMAL MOVEMENTS: None Impression/Recommendations Diagnostic Impression DIAGNOSTIC IMPRESSION: 1. Ms. Roseann Srinivasan is a 49-year-old, black lady, of unknown handedness, who does have a past history of neurofibromatosis, a seizure disorder, pulmonary hypertension, deafness of an unknown degree, and visual problems of an unknown degree. 2. She was hospitalized on 02/13/2020 and altered mental state preceded by failure to thrive, fever and possibly shaking chills, and a global decline in function. It was felt that she may have urinary tract infection. She was intubated and artificially ventilated, started on intravenous fluids, and antibiotics, and was observed in the ICU. 3. She does have a history of seizures but has not been observed to have any seizures during hospitalization. 4. An EEG performed on 02/18/2020 revealed: An encephalopathy of a moderate degree with a toxic metabolic component. Right temporal focal dysfunction. A right temporal epileptogenic focus with phase reversals in the mid temporal region. 5. She continues to be comatose. There is been no significant change in her medical or neurological condition. It is still unclear as to what exactly her baseline neurological function was prior to this admission. 6. On neurological examination at this time she is comatose and does not respond to any external stimuli, other than nonpurposeful withdrawal of both upper extremities and deep pain. She does have brainstem reflexes in the form of eye movements on oculocephalic maneuvers, and spontaneous ventilations. Her deep tendon reflexes are globally absent and the plantar responses mute. 7. Her latest laboratory data on my initial evaluation revealed an anemia with a hemoglobin of 10.1 g, AST elevated at 49, alkaline phosphate is elevated at 198, proBNP elevated at 11,463, normal PO2 at 83, minimally low PCO2 at 33, normal TSH, and a therapeutic Tegretol level at 10.2. 8. Further laboratory tests have revealed a normal vitamin B12 level, normal folate, ammonia level elevated at 46, and an elevated ESR at 90. 9. The CT scan of the brain without contrast performed on 02/21/2020 revealed "Innumerable bilateral meningiomas, white matter edema of the left cerebellar hemisphere and the right cerebral hemisphere, mass-effect upon the right lateral ventricle with shift of the midline structures from the right to the left, loss of salas-white differentiation, but no acute pathology." The findings are very similar to a scan performed in November 2019. 10. The patient's history, neurological examination, CT scan of the brain and EEG are most consistent with a significant toxic metabolic encephalopathy superimposed on significant structural brain disease but seems to be old. At this point in time it is unknown if the patient may also have acute intracranial pathology as an MRI scan cannot be obtained. 11. With regards to her seizure disorder, the patient has not had any clinical seizures while hospitalized and in addition the EEG also did not reveal any seizures but did reveal interictal phenomena emanating from the right temporal region. Recommendations RECOMMENDATIONS: 1. Continue present management. 2. Continue trial of Decadron 4 mg 3 times a day for a total of 5 days or so to determine if there is any improvement in her condition with decrease in cerebral edema. 3. Continue prehospitalization anticonvulsant regimen. 4. Try to determine the patient's prehospitalization baseline and to when exactly she was able to talk and walk. 5. Observe closely. Otoniel Ellis M.D., M.S.P.H. Neurologist & Clinical Neurophysiologist Otoniel Ellis MD Feb 23, 2020 10:51
--- NOTE | 2020-02-23 11:04 | Infectious Diseases Prog Note ---
Assessment/Plan Assessment/Plan A 1. Acinetobacter pneumonia COVID19 X2: negative 2. Hypoxic respiratory failure 3. neurofibromatosis 4. seizures 5. pulmonary hypertension 6. Sepsis 7. Non ST elevation [place] 8. Coma 9. Deaf & blind P 1. Continue cefepime X2 days 2. Case was D/W RN Subjective ROS Limited/Unobtainable: Yes Constitutional: Denies: fever Allergies: Coded Allergies: PENICILLINS (Verified Allergy, Severe, 08/07/12) FISH CONTAINING PRODUCTS (Verified Allergy, Unknown, 06/02/18) Uncoded Allergies: seafood (Allergy, Unknown, 06/02/18) Objective Last 24 Hour Vital Signs Date Time Temp Pulse Resp B/P (MAP) Pulse Ox O2 Delivery O2 Flow Rate FiO2 02/23/20 10:00 84 15 115/70 (85) 100 02/23/20 09:30 40 02/23/20 09:26 84 113/76 02/23/20 09:00 86 15 113/76 (88) 100 02/23/20 09:00 83 17 40 02/23/20 08:00 98.4 88 17 116/75 (89) 100 02/23/20 08:00 50 02/23/20 08:00 83 02/23/20 07:00 85 16 109/68 (82) 02/23/20 07:00 89 19 50 02/23/20 06:30 90 15 02/23/20 06:00 86 15 122/76 (91) 02/23/20 05:00 86 16 114/79 (91) 02/23/20 04:34 80 16 50 02/23/20 04:00 98.2 81 15 106/62 (77) 02/23/20 04:00 Mechanical Ventilator 02/23/20 04:00 87 02/23/20 04:00 30 02/23/20 03:40 75 15 50 02/23/20 03:00 78 17 116/66 (83) 02/23/20 02:00 74 19 107/62 (77) 02/23/20 01:12 88 17 50 02/23/20 01:00 77 14 110/68 (82) 02/23/20 00:00 30 02/23/20 00:00 Mechanical Ventilator 02/23/20 00:00 79 02/23/20 00:00 98.1 77 16 111/63 (79) 02/22/20 23:12 79 18 50 02/22/20 23:00 77 18 108/63 (78) 02/22/20 22:00 89 16 117/71 (86) 100 02/22/20 21:49 88 114/70 02/22/20 21:00 86 17 107/67 (80) 99 02/22/20 20:38 50 02/22/20 20:37 92 18 30 02/22/20 20:00 Mechanical Ventilator 02/22/20 20:00 30 02/22/20 20:00 77 02/22/20 20:00 97.8 87 15 118/69 (85) 100 02/22/20 19:19 76 19 30 02/22/20 19:00 74 15 100/64 (76) 02/22/20 18:00 74 18 109/59 (76) 100 02/22/20 17:00 78 19 30 02/22/20 17:00 76 18 97/50 (66) 100 02/22/20 16:01 98.2 77 19 116/65 (82) 100 02/22/20 16:00 80 02/22/20 16:00 77 19 116/65 (82) 100 02/22/20 16:00 Mechanical Ventilator 02/22/20 15:05 87 18 30 02/22/20 15:00 30 02/22/20 15:00 87 20 100/59 (73) 02/22/20 14:30 87 17 107/63 (78) 02/22/20 14:00 91 18 103/67 (79) 98 02/22/20 13:30 85 19 102/72 (82) 100 02/22/20 13:00 91 20 102/64 (77) 100 02/22/20 12:44 88 21 30 02/22/20 12:01 98.2 92 24 107/67 (80) 100 02/22/20 12:00 Mechanical Ventilator 02/22/20 12:00 92 24 107/67 (80) 100 02/22/20 12:00 30 02/22/20 12:00 90 02/22/20 11:02 89 18 30 02/22/20 11:00 95 20 100/65 (77) 97 Height (Feet): 5 Height (Inches): 5.00 Weight (Pounds): 151 HEENT: mucous membranes moist, other - orally intubated Respiratory/Chest: rhonchi - bilaterally, other - on ventilator Cardiovascular: normal rate Abdomen: soft, non tender, other - NG tube feeding Extremities: other - generalized edema Neurologic/Psychiatric: unresponsiveness Current Medications Medications (Trade) Dose Ordered Sig/Brian Route PRN Reason Start Time Stop Time Status Last Admin Dose Admin Acetaminophen (Tylenol) 650 mg Q4H PRN NG Mild Pain (Pain Scale 1-3) 02/14/20 03:00 03/15/20 02:59 02/17/20 05:28 Acetaminophen (Tylenol) 650 mg Q4H PRN NG Temp >100.5 02/14/20 03:00 03/15/20 02:59 02/19/20 21:04 Al Hydroxide/Mg Hydroxide (Mylanta) 30 ml Q4H PRN ORAL Dyspepsia 02/14/20 03:00 03/15/20 02:59 Apixaban (Eliquis) 5 mg BID NGT 02/14/20 09:00 05/14/20 08:59 02/23/20 09:25 Artificial Tears (Lacri-Lube) 1 applic TID BOTH EYES 02/18/20 09:00 03/18/20 09:29 02/23/20 10:09 Aspirin (ASA) 81 mg DAILY NG 02/15/20 09:00 03/31/20 08:59 02/23/20 09:24 Carbamazepine (TEGretol) 200 mg TID NG 02/14/20 09:00 03/15/20 08:59 02/23/20 09:24 Cefepime HCl 2 gm/ Dextrose 55 ml @ 110 mls/hr EVERY 12 HOURS IVPB 02/22/20 12:00 02/29/20 11:59 02/23/20 09:24 Dexamethasone Sodium Phosphate (Decadron 4mg/ml vial) 4 mg EVERY 8 HOURS IVP 02/21/20 22:00 02/26/20 14:01 02/23/20 06:24 Furosemide (Lasix) 20 mg DAILY IV 02/19/20 09:00 03/20/20 08:59 02/23/20 09:25 Gabapentin (Neurontin) 100 mg THREE TIMES A DAY ORAL 02/14/20 09:00 03/15/20 08:59 02/23/20 09:24 Iron Sucrose 100 mg/Sodium Chloride 60 ml @ 240 mls/hr BEDTIME IV 02/20/20 21:00 02/24/20 21:14 02/22/20 21:49 Lansoprazole (Prevacid) 30 mg DAILY NG 02/14/20 09:00 03/15/20 08:59 02/23/20 09:25 Levetiracetam 100 ml @ 400 mls/hr Q12HR IVPB 02/19/20 09:00 05/19/20 08:59 02/23/20 09:24 Metoclopramide HCl (Reglan) 5 mg Q6H PRN IVP Nausea & Vomiting 02/19/20 08:15 03/20/20 08:14 02/19/20 12:44 Metoprolol Tartrate (Lopressor) 25 mg Q12HR ORAL 02/15/20 21:00 05/15/20 20:59 02/23/20 09:26 Patient Own Medication (Patient's Own Med) 1 ea DAILY ORAL 02/14/20 13:00 03/15/20 12:59 02/23/20 09:23 Patient Own Medication (Patient's Own Med) 1 ea TID ORAL 02/14/20 13:00 03/15/20 12:59 02/23/20 09:23 Sildenafil Citrate (Revatio) 20 mg TID ORAL 02/14/20 09:00 05/14/20 08:59 02/23/20 09:24 Guillaume Hernandez MD Feb 23, 2020 11:04
[2020-02-23] MEDS ORDERED: Sterile Water Irrig 1000ml IRRIG ONE ×2 (13:03→13:31)
[2020-02-23] MEDS ORDERED: NS 275ml ONE ×3 (13:03→13:31)
[2020-02-23] MEDS ORDERED: Tubing IV Secondary IV ONE ×2 (13:03)
--- NOTE | 2020-02-23 16:37 | General Progress Note ---
Assessment/Plan Problem List: (1) Seizure disorder ICD Codes: G40.909 - Epilepsy, unspecified, not intractable,without status epilepticus SNOMED: 677495384 (2) Pulmonary hypertension ICD Codes: I27.20 - Pulmonary hypertension, unspecified SNOMED: 08073096 (3) Respiratory failure ICD Codes: J96.90 - Respiratory failure, unspecified, unspecified whether with hypoxia or hypercapnia SNOMED: 910529575 Qualifiers: Qualified Codes: J96.01 - Acute respiratory failure with hypoxia (4) Severe sepsis ICD Codes: A41.9 - Sepsis, unspecified organism; R65.20 - Severe sepsis without septic shock SNOMED: 37905176 (5) NSTEMI (non-ST elevated myocardial infarction) ICD Codes: I21.4 - Non-ST elevation (NSTEMI) myocardial infarction SNOMED: 85517555 (6) Fever ICD Codes: R50.9 - Fever, unspecified SNOMED: 328544003 (7) Dyspnea ICD Codes: R06.00 - Dyspnea, unspecified SNOMED: 025390105 Assessment/Plan: cont vent support resp care wean as able iv steroids sz rx neuro eval appreciated tube feeds reglan for high residuals eliquis remains guarded Subjective ROS Limited/Unobtainable: Yes Constitutional: Reports: malaise, weakness HEENT: Reports: no symptoms Cardiovascular: Reports: no symptoms Respiratory: Reports: shortness of breath, sputum Gastrointestinal/Abdominal: Reports: difficulty swallowing Genitourinary: Reports: no symptoms Neurologic/Psychiatric: Reports: pre-existing deficit, seizure Endocrine: Reports: no symptoms Hematologic/Lymphatic: Reports: no symptoms Allergies: Coded Allergies: PENICILLINS (Verified Allergy, Severe, 08/07/12) FISH CONTAINING PRODUCTS (Verified Allergy, Unknown, 06/02/18) Uncoded Allergies: seafood (Allergy, Unknown, 06/02/18) All Systems: reviewed and negative except above Subjective Remains poorly responsive. No reports of seizures. Has some spontaneous movements of the upper extremities. Not weaning. Tolerating tube feeds. Objective Last 24 Hour Vital Signs Date Time Temp Pulse Resp B/P (MAP) Pulse Ox O2 Delivery O2 Flow Rate FiO2 02/23/20 16:00 74 02/23/20 15:10 78 16 30 02/23/20 15:00 78 18 98/62 (74) 100 02/23/20 14:00 85 14 106/72 (83) 100 02/23/20 13:52 81 20 30 02/23/20 13:50 30 02/23/20 13:49 69 02/23/20 13:30 30 02/23/20 13:30 82 18 30 30 02/23/20 13:00 82 16 107/70 (82) 100 02/23/20 12:00 80 02/23/20 12:00 98.7 84 18 116/69 (85) 100 02/23/20 12:00 30 02/23/20 12:00 Mechanical Ventilator 02/23/20 11:10 79 15 30 02/23/20 11:00 78 16 105/68 (80) 100 02/23/20 10:00 84 15 115/70 (85) 100 02/23/20 09:30 40 02/23/20 09:26 84 113/76 02/23/20 09:00 86 15 113/76 (88) 100 02/23/20 09:00 83 17 40 02/23/20 08:00 98.4 88 17 116/75 (89) 100 02/23/20 08:00 50 02/23/20 08:00 83 02/23/20 08:00 Mechanical Ventilator 02/23/20 07:00 85 16 109/68 (82) 02/23/20 07:00 89 19 50 02/23/20 06:30 90 15 02/23/20 06:00 86 15 122/76 (91) 02/23/20 05:00 86 16 114/79 (91) 02/23/20 04:34 80 16 50 02/23/20 04:00 98.2 81 15 106/62 (77) 02/23/20 04:00 Mechanical Ventilator 02/23/20 04:00 87 02/23/20 04:00 30 02/23/20 03:40 75 15 50 02/23/20 03:00 78 17 116/66 (83) 02/23/20 02:00 74 19 107/62 (77) 02/23/20 01:12 88 17 50 02/23/20 01:00 77 14 110/68 (82) 02/23/20 00:00 30 02/23/20 00:00 Mechanical Ventilator 02/23/20 00:00 79 02/23/20 00:00 98.1 77 16 111/63 (79) 02/22/20 23:12 79 18 50 02/22/20 23:00 77 18 108/63 (78) 02/22/20 22:00 89 16 117/71 (86) 100 02/22/20 21:49 88 114/70 02/22/20 21:00 86 17 107/67 (80) 99 02/22/20 20:38 50 02/22/20 20:37 92 18 30 02/22/20 20:00 Mechanical Ventilator 02/22/20 20:00 30 02/22/20 20:00 77 02/22/20 20:00 97.8 87 15 118/69 (85) 100 02/22/20 19:19 76 19 30 02/22/20 19:00 74 15 100/64 (76) 02/22/20 18:00 74 18 109/59 (76) 100 02/22/20 17:00 78 19 30 02/22/20 17:00 76 18 97/50 (66) 100 Intake and Output 02/22/20 02/23/20 19:00 07:00 Intake Total 735 ml 345 ml Output Total 450 ml 305 ml Balance 285 ml 40 ml Free Water 170 ml 90 ml IV Total 155 ml Tube Feeding 360 ml 255 ml Other 50 ml Output Urine Total 450 ml 305 ml Height (Feet): 5 Height (Inches): 5.00 Weight (Pounds): 151 Objective General Appearance: WD/WN, confused EENT: PERRL/EOMI, normal ENT inspection Neck: non-tender, normal alignment Cardiovascular: normal peripheral pulses, normal rate Respiratory/Chest: chest wall non-tender, lungs clear, normal breath sounds Abdomen: normal bowel sounds, non tender Edema: no edema noted Arm (L), no edema noted Arm (R) Neurologic: disoriented, unresponsive Skin: normal pigmentation Lymphatic: normal anterior cervical (L), normal anterior cervical (R) Liborio Dugan MD Feb 23, 2020 16:37
[2020-02-23] MEDS: Iron Sucrose 100 MG in NS 55 ML IV SCH (20:56)
[2020-02-24] VITALS (26 sets, daily range): BP systolic 92–140; BP diastolic 56–95
--- NOTE | 2020-02-24 01:14 | Cardiology Progress Note ---
Subjective DATE OF SERVICE: Feb 23, 2020 On vent support - 30% FIO2; not weaning. BP remains stable range No new fever spikes. Per neuro, no seizure activity noted Monitor: sinus tachycardia and sinus rhythm Troponin levels trending down. CXR (02/19/20) worsening infiltrate on left and persisting on right. Objective Last 24 Hour Vital Signs Date Time Temp Pulse Resp B/P (MAP) Pulse Ox O2 Delivery O2 Flow Rate FiO2 02/24/20 00:30 86 17 107/69 (82) 100 02/24/20 00:00 88 02/24/20 00:00 Mechanical Ventilator 02/24/20 00:00 30 02/24/20 00:00 98.4 88 17 112/71 (85) 100 02/23/20 23:12 81 18 30 02/23/20 23:00 94 21 106/52 (70) 100 02/23/20 22:00 90 16 106/66 (79) 100 02/23/20 21:00 90 15 104/62 (76) 100 02/23/20 20:58 88 102/55 02/23/20 20:40 87 15 30 02/23/20 20:00 82 02/23/20 20:00 30 02/23/20 20:00 Mechanical Ventilator 02/23/20 20:00 98.0 91 15 103/59 (74) 100 02/23/20 19:00 89 15 106/64 (78) 02/23/20 19:00 87 16 30 02/23/20 18:00 88 14 111/68 (82) 100 02/23/20 17:00 78 18 30 02/23/20 17:00 77 15 91/60 (70) 100 02/23/20 16:00 74 02/23/20 16:00 Mechanical Ventilator 02/23/20 16:00 98.4 80 17 95/64 (74) 100 02/23/20 15:10 78 16 30 02/23/20 15:00 78 18 98/62 (74) 100 02/23/20 14:00 85 14 106/72 (83) 100 02/23/20 13:52 81 20 30 02/23/20 13:50 30 02/23/20 13:49 69 02/23/20 13:30 30 02/23/20 13:30 82 18 30 30 02/23/20 13:00 82 16 107/70 (82) 100 02/23/20 12:00 80 02/23/20 12:00 98.7 84 18 116/69 (85) 100 02/23/20 12:00 30 02/23/20 12:00 Mechanical Ventilator 02/23/20 11:10 79 15 30 02/23/20 11:00 78 16 105/68 (80) 100 02/23/20 10:00 84 15 115/70 (85) 100 02/23/20 09:30 40 02/23/20 09:26 84 113/76 02/23/20 09:00 86 15 113/76 (88) 100 02/23/20 09:00 83 17 40 02/23/20 08:00 98.4 88 17 116/75 (89) 100 02/23/20 08:00 50 02/23/20 08:00 83 02/23/20 08:00 Mechanical Ventilator 02/23/20 07:00 85 16 109/68 (82) 02/23/20 07:00 89 19 50 02/23/20 06:30 90 15 02/23/20 06:00 86 15 122/76 (91) 02/23/20 05:00 86 16 114/79 (91) 02/23/20 04:34 80 16 50 02/23/20 04:00 98.2 81 15 106/62 (77) 02/23/20 04:00 Mechanical Ventilator 02/23/20 04:00 87 02/23/20 04:00 30 02/23/20 03:40 75 15 50 02/23/20 03:00 78 17 116/66 (83) 02/23/20 02:00 74 19 107/62 (77) 02/23/20 01:12 88 17 50 ROS: no change from my evaluation on 02/14/20 HEENT: Orally intubated RHYTHM: ST LUNGS: bilateral rhonchi CARDIAC: normal rate, regular rhythm, normal S1 and S2 ABDOMEN: normal bowel sounds, non tender, soft EXTREMITIES: non-tender, trace edema Assessment/Plan Assessment/Plan Respiratory Failure UTI Sepsis with shock Acute myocardial infarction (NSTE) Neurofibromatosis with edema Hypokalemia Hypomagnesemia Hypovolemia Pulmonary Hypertension Aspiration PNA Seizure Disorder Vent support Anti-sz meds Steroids initiated - taper per neuro anti-plt rx and anticoagulation for now Beta blockade Maintain IVF Antimicrobials and resp rx Avoid pressors follow up CXR Marcus Main MD Feb 24, 2020 01:14
[2020-02-24 04:59] LABS: HEMATOCRIT 29.6 % (37.0-47.0); HEMOGLOBIN 9.5 G/DL (12.0-16.0); MEAN CORPUSCULAR VOLUME 97 FL (80-99); PLATELET COUNT 349 K/UL (150-450); RED BLOOD COUNT 3.06 M/UL (4.20-5.40); RED CELL DISTRIBUTION WIDTH 12.5 % (11.6-14.8); WHITE BLOOD COUNT 10.7 K/UL (4.8-10.8)
[2020-02-24 05:37] LABS: ALANINE AMINOTRANSFERASE 56 U/L (12-78); ALBUMIN 1.5 G/DL (3.4-5.0); ALBUMIN/GLOBULIN RATIO 0.3 (1.0-2.7); ALKALINE PHOSPHATASE 164 U/L (46-116); ANION GAP 12 mmol/L (5-15); ASPARTATE AMINO TRANSFERASE 47 U/L (15-37); BILIRUBIN,TOTAL 0.5 MG/DL (0.2-1.0); BLOOD UREA NITROGEN 37 mg/dL (7-18); CALCIUM 8.4 MG/DL (8.5-10.1); CARBON DIOXIDE 18 MMOL/L (21-32); CHLORIDE 109 MMOL/L (98-107); CREATININE 1.2 MG/DL (0.55-1.30); POTASSIUM 5.1 MMOL/L (3.5-5.1); SODIUM 139 MMOL/L (136-145)
[2020-02-24] MEDS: levETIRAcetam 1,000mg/NS100ml 100 ML IVPB SCH ×2 (08:27→20:04)
[2020-02-24] MEDS: Cefepime HCl 2 GM in D5W 55 ML IVPB SCH ×2 (08:28→21:01)
[2020-02-24] MEDS: carBAMazepine 200mg tab NG SCH ×3 (08:28→18:32)
[2020-02-24] MEDS: SELEXIPAG ORAL SCH ×3 (08:28→18:32)
[2020-02-24] MEDS: Eliquis 5mg tablet NGT SCH ×2 (08:29→18:32)
[2020-02-24] MEDS: Revatio 20mg tab ORAL SCH ×3 (08:29→18:32)
[2020-02-24] MEDS: Aspirin Baby 81mg NG SCH (08:29)
[2020-02-24] MEDS: Lacri-Lube Opth Oint 3.5gm BOTH EYES SCH ×3 (08:30→18:32)
[2020-02-24] MEDS: OPSUMIT 10 MG ORAL SCH (08:30)
--- NOTE | 2020-02-24 09:01 | Critical Care Progress Note ---
Assessment/Plan Assessment/Plan respiratory failure pneumonia improved by CXR pulmonary hypertension elevated troponin possible NSTEMI paraplegia hypoxemia seizure history brain masses, chronic moderate PCM PLAN care noted- with family; trach and peg next week IV antibiotics noted respiratory care and nursing care noted Ventilatory support on- trying to wean daily mental status remains poor and not improved monitor acid base and adjust supportive care suction as needed monitor heart rate seizure meds- as is oxygen therapy prognosis same nutrition off load and monitor skin update family and call consultants will need subacute care medications/laboratory data/nursing notes/ICU care reviewed in detail note reviewed and edited care discussed with RN and RT ICU time spent >40 minutes Critical Care - Subjective Interval Events: unable to wean LOC remains poor family aware ROS Limited/Unobtainable: Yes EKG Rhythm: Sinus Rhythm Residuals: minimal Tube Feeding Tolerated: yes I&O: Intake and Output 02/23/20 02/24/20 19:00 07:00 Intake Total 520 ml 365 ml Output Total 780 ml 360 ml Balance -260 ml 5 ml Free Water 35 ml IV Total 155 ml 215 ml Tube Feeding 330 ml 150 ml Output Urine Total 780 ml 360 ml # Bowel Movements 2 Critical Care - Objective ET-Tube: 7.0 ET Position: 23 Last 24 Hour Vital Signs Date Time Temp Pulse Resp B/P (MAP) Pulse Ox O2 Delivery O2 Flow Rate FiO2 02/24/20 08:29 86 130/95 02/24/20 08:00 97.5 94 18 130/95 (107) 100 02/24/20 08:00 30 02/24/20 08:00 Mechanical Ventilator 02/24/20 07:46 87 02/24/20 07:14 100 02/24/20 07:14 88 16 30 30 02/24/20 07:00 83 17 111/78 (89) 02/24/20 06:30 84 20 02/24/20 06:00 81 16 117/81 (93) 100 02/24/20 05:30 84 16 104/71 (82) 100 02/24/20 05:13 91 17 30 02/24/20 05:00 89 16 123/90 (101) 100 02/24/20 04:00 30 02/24/20 04:00 82 02/24/20 04:00 Mechanical Ventilator 02/24/20 04:00 98.8 88 18 101/70 (80) 100 02/24/20 03:42 85 17 30 02/24/20 03:41 85 17 100 Mechanical Ventilator 30 02/24/20 03:00 86 18 120/77 (91) 100 02/24/20 02:00 88 18 113/77 (89) 100 02/24/20 01:18 84 16 30 02/24/20 01:00 82 15 97/67 (77) 100 02/24/20 00:30 86 17 107/69 (82) 100 02/24/20 00:00 88 02/24/20 00:00 Mechanical Ventilator 02/24/20 00:00 30 02/24/20 00:00 98.4 88 17 112/71 (85) 100 02/23/20 23:12 81 18 30 02/23/20 23:00 94 21 106/52 (70) 100 02/23/20 22:00 90 16 106/66 (79) 100 02/23/20 21:00 90 15 104/62 (76) 100 02/23/20 20:58 88 102/55 02/23/20 20:40 87 15 30 02/23/20 20:00 82 02/23/20 20:00 30 02/23/20 20:00 Mechanical Ventilator 02/23/20 20:00 98.0 91 15 103/59 (74) 100 02/23/20 19:00 89 15 106/64 (78) 02/23/20 19:00 87 16 30 02/23/20 18:00 88 14 111/68 (82) 100 02/23/20 17:00 78 18 30 02/23/20 17:00 77 15 91/60 (70) 100 02/23/20 16:00 74 02/23/20 16:00 Mechanical Ventilator 02/23/20 16:00 98.4 80 17 95/64 (74) 100 02/23/20 15:10 78 16 30 02/23/20 15:00 78 18 98/62 (74) 100 02/23/20 14:00 85 14 106/72 (83) 100 02/23/20 13:52 81 20 30 02/23/20 13:50 30 02/23/20 13:49 69 02/23/20 13:30 30 02/23/20 13:30 82 18 30 30 02/23/20 13:00 82 16 107/70 (82) 100 02/23/20 12:00 80 02/23/20 12:00 98.7 84 18 116/69 (85) 100 02/23/20 12:00 30 02/23/20 12:00 Mechanical Ventilator 02/23/20 11:10 79 15 30 02/23/20 11:00 78 16 105/68 (80) 100 02/23/20 10:00 84 15 115/70 (85) 100 02/23/20 09:30 40 02/23/20 09:26 84 113/76 02/23/20 09:00 86 15 113/76 (88) 100 02/23/20 09:00 83 17 40 Labs: Laboratory Tests Test 02/24/20 03:50 White Blood Count 10.7 K/UL (4.8-10.8) Red Blood Count 3.06 M/UL (4.20-5.40) L Hemoglobin 9.5 G/DL (12.0-16.0) L Hematocrit 29.6 % (37.0-47.0) L Mean Corpuscular Volume 97 FL (80-99) Mean Corpuscular Hemoglobin 31.0 PG (27.0-31.0) Mean Corpuscular Hemoglobin Concent 32.1 G/DL (32.0-36.0) Red Cell Distribution Width 12.5 % (11.6-14.8) Platelet Count 349 K/UL (150-450) Mean Platelet Volume 7.5 FL (6.5-10.1) Neutrophils (%) (Auto) % (45.0-75.0) Lymphocytes (%) (Auto) % (20.0-45.0) Monocytes (%) (Auto) % (1.0-10.0) Eosinophils (%) (Auto) % (0.0-3.0) Basophils (%) (Auto) % (0.0-2.0) Sodium Level 139 MMOL/L (136-145) Potassium Level 5.1 MMOL/L (3.5-5.1) Chloride Level 109 MMOL/L (98-107) H Carbon Dioxide Level 18 MMOL/L (21-32) L Anion Gap 12 mmol/L (5-15) Blood Urea Nitrogen 37 mg/dL (7-18) H Creatinine 1.2 MG/DL (0.55-1.30) Estimat Glomerular Filtration Rate 57.9 mL/min (>60) Glucose Level 134 MG/DL (74-106) H Calcium Level 8.4 MG/DL (8.5-10.1) L Magnesium Level 2.0 MG/DL (1.8-2.4) Total Bilirubin 0.5 MG/DL (0.2-1.0) Aspartate Amino Transf (AST/SGOT) 47 U/L (15-37) H Alanine Aminotransferase (ALT/SGPT) 56 U/L (12-78) Alkaline Phosphatase 164 U/L (46-116) H Troponin I 0.111 ng/mL (0.000-0.056) Pro-B-Type Natriuretic Peptide 00807 pg/mL (0-125) H Total Protein 6.2 G/DL (6.4-8.2) L Albumin 1.5 G/DL (3.4-5.0) L Globulin 4.7 g/dL Albumin/Globulin Ratio 0.3 (1.0-2.7) L Objective: WDWN NAD on vent reduced breath sounds bilaterally without rhonchi or wheeze [id number] without MRG NABS nontender no HSM no CCE nonfocal poor LOC reduced ROM skin noted reviewed and edited feeding tube in place Juan Snow MD Feb 24, 2020 09:01
--- NOTE | 2020-02-24 11:18 | Infectious Diseases Prog Note ---
Assessment/Plan Assessment/Plan antibiotics : cefepime A 1. acenitobacter pneumonia COVID 19 negative 2. respiratory failure 3. neurofibromatosis 4. seizures 5. pulmonary hypertension 6. + blood cultures with coag neg staph likely contaminated P 1. continue iv cefepime 1 more day 2. will follow up cultures Subjective ROS Limited/Unobtainable: Yes Allergies: Coded Allergies: PENICILLINS (Verified Allergy, Severe, 08/07/12) FISH CONTAINING PRODUCTS (Verified Allergy, Unknown, 06/02/18) Uncoded Allergies: seafood (Allergy, Unknown, 06/02/18) Objective Last 24 Hour Vital Signs Date Time Temp Pulse Resp B/P (MAP) Pulse Ox O2 Delivery O2 Flow Rate FiO2 02/24/20 11:00 68 17 30 02/24/20 10:00 62 13 94/59 (71) 100 02/24/20 09:25 72 17 30 02/24/20 09:00 84 17 113/77 (89) 95 02/24/20 08:43 86 16 30 02/24/20 08:29 86 130/95 02/24/20 08:14 30 02/24/20 08:00 97.5 94 18 130/95 (107) 100 02/24/20 08:00 30 02/24/20 08:00 Mechanical Ventilator 02/24/20 07:46 87 02/24/20 07:14 100 02/24/20 07:14 88 16 30 30 02/24/20 07:00 83 17 111/78 (89) 02/24/20 06:30 84 20 02/24/20 06:00 81 16 117/81 (93) 100 02/24/20 05:30 84 16 104/71 (82) 100 02/24/20 05:13 91 17 30 02/24/20 05:00 89 16 123/90 (101) 100 02/24/20 04:00 30 02/24/20 04:00 82 02/24/20 04:00 Mechanical Ventilator 02/24/20 04:00 98.8 88 18 101/70 (80) 100 02/24/20 03:42 85 17 30 02/24/20 03:41 85 17 100 Mechanical Ventilator 30 02/24/20 03:00 86 18 120/77 (91) 100 02/24/20 02:00 88 18 113/77 (89) 100 8/28/20 01:18 84 16 30 02/24/20 01:00 82 15 97/67 (77) 100 02/24/20 00:30 86 17 107/69 (82) 100 02/24/20 00:00 88 02/24/20 00:00 Mechanical Ventilator 02/24/20 00:00 30 02/24/20 00:00 98.4 88 17 112/71 (85) 100 02/23/20 23:12 81 18 30 02/23/20 23:00 94 21 106/52 (70) 100 02/23/20 22:00 90 16 106/66 (79) 100 02/23/20 21:00 90 15 104/62 (76) 100 02/23/20 20:58 88 102/55 02/23/20 20:40 87 15 30 02/23/20 20:00 82 02/23/20 20:00 30 02/23/20 20:00 Mechanical Ventilator 02/23/20 20:00 98.0 91 15 103/59 (74) 100 02/23/20 19:00 89 15 106/64 (78) 02/23/20 19:00 87 16 30 02/23/20 18:00 88 14 111/68 (82) 100 02/23/20 17:00 78 18 30 02/23/20 17:00 77 15 91/60 (70) 100 02/23/20 16:00 74 02/23/20 16:00 Mechanical Ventilator 02/23/20 16:00 98.4 80 17 95/64 (74) 100 02/23/20 15:10 78 16 30 02/23/20 15:00 78 18 98/62 (74) 100 02/23/20 14:00 85 14 106/72 (83) 100 02/23/20 13:52 81 20 30 02/23/20 13:50 30 02/23/20 13:49 69 02/23/20 13:30 30 02/23/20 13:30 82 18 30 30 02/23/20 13:00 82 16 107/70 (82) 100 02/23/20 12:00 80 02/23/20 12:00 98.7 84 18 116/69 (85) 100 02/23/20 12:00 30 8/27/20 12:00 Mechanical Ventilator Height (Feet): 5 Height (Inches): 5.00 Weight (Pounds): 145 HEENT: other - intubated Respiratory/Chest: lungs clear Cardiovascular: normal rate, regular rhythm, no gallop/murmur Abdomen: soft, non tender Extremities: no edema Laboratory Tests Test 02/24/20 03:50 02/24/20 08:44 White Blood Count 10.7 K/UL (4.8-10.8) Red Blood Count 3.06 M/UL (4.20-5.40) L Hemoglobin 9.5 G/DL (12.0-16.0) L Hematocrit 29.6 % (37.0-47.0) L Mean Corpuscular Volume 97 FL (80-99) Mean Corpuscular Hemoglobin 31.0 PG (27.0-31.0) Mean Corpuscular Hemoglobin Concent 32.1 G/DL (32.0-36.0) Red Cell Distribution Width 12.5 % (11.6-14.8) Platelet Count 349 K/UL (150-450) Mean Platelet Volume 7.5 FL (6.5-10.1) Neutrophils (%) (Auto) % (45.0-75.0) Lymphocytes (%) (Auto) % (20.0-45.0) Monocytes (%) (Auto) % (1.0-10.0) Eosinophils (%) (Auto) % (0.0-3.0) Basophils (%) (Auto) % (0.0-2.0) Sodium Level 139 MMOL/L (136-145) Potassium Level 5.1 MMOL/L (3.5-5.1) Chloride Level 109 MMOL/L (98-107) H Carbon Dioxide Level 18 MMOL/L (21-32) L Anion Gap 12 mmol/L (5-15) Blood Urea Nitrogen 37 mg/dL (7-18) H Creatinine 1.2 MG/DL (0.55-1.30) Estimat Glomerular Filtration Rate 57.9 mL/min (>60) Glucose Level 134 MG/DL (74-106) H Calcium Level 8.4 MG/DL (8.5-10.1) L Magnesium Level 2.0 MG/DL (1.8-2.4) Total Bilirubin 0.5 MG/DL (0.2-1.0) Aspartate Amino Transf (AST/SGOT) 47 U/L (15-37) H Alanine Aminotransferase (ALT/SGPT) 56 U/L (12-78) Alkaline Phosphatase 164 U/L (46-116) H Troponin I 0.111 ng/mL (0.000-0.056) Pro-B-Type Natriuretic Peptide 49846 pg/mL (0-125) H Total Protein 6.2 G/DL (6.4-8.2) L Albumin 1.5 G/DL (3.4-5.0) L Globulin 4.7 g/dL Albumin/Globulin Ratio 0.3 (1.0-2.7) L Arterial Blood pH 7.355 (7.350-7.450) Arterial Blood Partial Pressure CO2 35.0 mmHg (35.0-45.0) Arterial Blood Partial Pressure O2 66.3 mmHg (75.0-100.0) L Arterial Blood HCO3 19.1 mmol/L (22.0-26.0) L Arterial Blood Oxygen Saturation 90.6 % (95-100) L Arterial Blood Base Excess -5.7 (-2-2) L Jax Test Positive Current Medications Medications (Trade) Dose Ordered Sig/Brian Route PRN Reason Start Time Stop Time Status Last Admin Dose Admin Acetaminophen (Tylenol) 650 mg Q4H PRN NG Mild Pain (Pain Scale 1-3) 02/14/20 03:00 03/15/20 02:59 02/17/20 05:28 Acetaminophen (Tylenol) 650 mg Q4H PRN NG Temp >100.5 02/14/20 03:00 03/15/20 02:59 02/19/20 21:04 Al Hydroxide/Mg Hydroxide (Mylanta) 30 ml Q4H PRN ORAL Dyspepsia 02/14/20 03:00 03/15/20 02:59 Apixaban (Eliquis) 5 mg BID NGT 02/14/20 09:00 05/14/20 08:59 02/24/20 08:29 Artificial Tears (Lacri-Lube) 1 applic TID BOTH EYES 02/18/20 09:00 03/18/20 09:29 02/24/20 08:30 Aspirin (ASA) 81 mg DAILY NG 02/15/20 09:00 03/31/20 08:59 02/24/20 08:29 Carbamazepine (TEGretol) 200 mg TID NG 02/14/20 09:00 03/15/20 08:59 02/24/20 08:28 Cefepime HCl 2 gm/ Dextrose 55 ml @ 110 mls/hr EVERY 12 HOURS IVPB 02/22/20 12:00 02/29/20 11:59 02/24/20 08:28 Dexamethasone Sodium Phosphate (Decadron 4mg/ml vial) 4 mg EVERY 8 HOURS IVP 02/21/20 22:00 02/26/20 14:01 02/24/20 05:57 Furosemide (Lasix) 20 mg DAILY IV 02/19/20 09:00 03/20/20 08:59 02/24/20 08:28 Gabapentin (Neurontin) 100 mg THREE TIMES A DAY ORAL 02/14/20 09:00 03/15/20 08:59 02/24/20 08:30 Iron Sucrose 100 mg/Sodium Chloride 60 ml @ 240 mls/hr BEDTIME IV 02/20/20 21:00 02/24/20 21:14 02/23/20 20:56 Lansoprazole (Prevacid) 30 mg DAILY NG 02/14/20 09:00 03/15/20 08:59 02/24/20 08:29 Levetiracetam 100 ml @ 400 mls/hr Q12HR IVPB 02/19/20 09:00 05/19/20 08:59 02/24/20 08:27 Metoclopramide HCl (Reglan) 5 mg Q6H PRN IVP Nausea & Vomiting 02/19/20 08:15 03/20/20 08:14 02/19/20 12:44 Metoprolol Tartrate (Lopressor) 25 mg Q12HR ORAL 02/15/20 21:00 05/15/20 20:59 02/24/20 08:29 Patient Own Medication (Patient's Own Med) 1 ea DAILY ORAL 02/14/20 13:00 03/15/20 12:59 02/23/20 09:23 Patient Own Medication (Patient's Own Med) 1 ea TID ORAL 02/14/20 13:00 03/15/20 12:59 02/24/20 08:28 Sildenafil Citrate (Revatio) 20 mg TID ORAL 02/14/20 09:00 05/14/20 08:59 02/24/20 08:29 Maci Deleon MD Feb 24, 2020 11:18
[2020-02-24] MEDS ORDERED: NS 500ML ONE (12:28)
[2020-02-24] MEDS ORDERED: Tubing IV Secondary IV ONE (12:28)
--- NOTE | 2020-02-24 13:22 | Neurology Progress Note ---
Interim History Interim History Interim History Ms. Roseann Srinivasan is a 49-year-old, black lady, of unknown handedness, who does have a past history of neurofibromatosis, a seizure disorder, pulmonary hypertension, deafness of an unknown degree, and visual problems of an unknown degree. She was hospitalized on 02/13/2020 for an altered mental state preceded by failure to thrive, fever and possibly shaking chills, and a global decline in function. It was felt that she may have a urinary tract infection. She was intubated and artificially ventilated, started on intravenous fluids, and antibiotics, and was observed in the ICU. She does have a history of seizures but has not been observed to have any seizures during her hospitalization. She continues to be comatose. There has been no significant change in her medical or neurological condition. It is still unclear as to what exactly her baseline neurological function was prior to this admission. Review of Systems Neuro Review of Systems Unable to obtain. Objective Physical Exam Last Vital Signs Date Time Temp Pulse Resp B/P (MAP) Pulse Ox O2 Delivery O2 Flow Rate FiO2 02/24/20 12:00 98.2 70 16 102/63 (76) 100 02/24/20 12:00 30 02/24/20 12:00 Mechanical Ventilator Laboratory Tests Test 02/24/20 03:50 02/24/20 08:44 White Blood Count 10.7 K/UL (4.8-10.8) Red Blood Count 3.06 M/UL (4.20-5.40) L Hemoglobin 9.5 G/DL (12.0-16.0) L Hematocrit 29.6 % (37.0-47.0) L Mean Corpuscular Volume 97 FL (80-99) Mean Corpuscular Hemoglobin 31.0 PG (27.0-31.0) Mean Corpuscular Hemoglobin Concent 32.1 G/DL (32.0-36.0) Red Cell Distribution Width 12.5 % (11.6-14.8) Platelet Count 349 K/UL (150-450) Mean Platelet Volume 7.5 FL (6.5-10.1) Neutrophils (%) (Auto) % (45.0-75.0) Lymphocytes (%) (Auto) % (20.0-45.0) Monocytes (%) (Auto) % (1.0-10.0) Eosinophils (%) (Auto) % (0.0-3.0) Basophils (%) (Auto) % (0.0-2.0) Sodium Level 139 MMOL/L (136-145) Potassium Level 5.1 MMOL/L (3.5-5.1) Chloride Level 109 MMOL/L (98-107) H Carbon Dioxide Level 18 MMOL/L (21-32) L Anion Gap 12 mmol/L (5-15) Blood Urea Nitrogen 37 mg/dL (7-18) H Creatinine 1.2 MG/DL (0.55-1.30) Estimat Glomerular Filtration Rate 57.9 mL/min (>60) Glucose Level 134 MG/DL (74-106) H Calcium Level 8.4 MG/DL (8.5-10.1) L Magnesium Level 2.0 MG/DL (1.8-2.4) Total Bilirubin 0.5 MG/DL (0.2-1.0) Aspartate Amino Transf (AST/SGOT) 47 U/L (15-37) H Alanine Aminotransferase (ALT/SGPT) 56 U/L (12-78) Alkaline Phosphatase 164 U/L (46-116) H Troponin I 0.111 ng/mL (0.000-0.056) Pro-B-Type Natriuretic Peptide 42327 pg/mL (0-125) H Total Protein 6.2 G/DL (6.4-8.2) L Albumin 1.5 G/DL (3.4-5.0) L Globulin 4.7 g/dL Albumin/Globulin Ratio 0.3 (1.0-2.7) L Arterial Blood pH 7.355 (7.350-7.450) Arterial Blood Partial Pressure CO2 35.0 mmHg (35.0-45.0) Arterial Blood Partial Pressure O2 66.3 mmHg (75.0-100.0) L Arterial Blood HCO3 19.1 mmol/L (22.0-26.0) L Arterial Blood Oxygen Saturation 90.6 % (95-100) L Arterial Blood Base Excess -5.7 (-2-2) L Jax Test Positive Neurologic Exam Objective PHYSICAL EXAMINATION: GENERAL: She is a well-developed, relatively well-nourished, black lady, lying in intensive care unit bed, connected to ventilator via an endotracheal tube. HEAD: Normocephalic and atraumatic. NECK: No neck rigidity was observed. EENT: She had bilateral chemosis involving the left side more than the right. SPINE: Cervical, thoracic and lumbosacral spine revealed no tenderness or paraspinal muscle spasm. NEUROLOGIC EXAMINATION: MENTAL STATUS EXAMINATION: She was comatose. She only responded to deep pain with nonpurposeful withdrawal in both upper extremities and no response in both lower extremities. Further mental status testing was impossible. SPEECH: Could not be tested. LANGUAGE: Could not be tested. CRANIAL NERVE EXAMINATION: II: She did not blink to threat. III, IV, : External ocular movements were present but restricted on oculocephalic maneuvers. The pupils were 3 mm in diameter equal, round, regular and did not react to light. V & VII: The corneal reflexes were absent bilaterally. VIII: She did not respond to sounds and had no nystagmus. IX & X: The gag reflex was absent on manipulating the endotracheal tube. XI: The sternocleidomastoids and trapezii did not function. XII: The tongue could not be examined properly. MOTOR SYSTEM: The tone was diminished in all 4 extremities. Examination of muscle mass revealed generalized muscle wasting. Examination of power was impossible to perform because even on applying deep painful stimuli the only response seen was nonpurposeful withdrawal in both upper extremities. SENSORY EXAMINATION: She only responded to deep pain with nonpurposeful withdrawal in both upper extremities. REFLEXES: 0 at the biceps, triceps, brachioradialis, knees and ankles. The plantar responses were mute bilaterally. COORDINATION, STANCE & GAIT: Not be tested. ABNORMAL MOVEMENTS: None Impression/Recommendations Diagnostic Impression DIAGNOSTIC IMPRESSION: 1. Ms. Roseann Srinivasan is a 49-year-old, black lady, of unknown handedness, who does have a past history of neurofibromatosis, a seizure disorder, pulmonary hypertension, deafness of an unknown degree, and visual problems of an unknown degree. 2. She was hospitalized on 02/13/2020 and altered mental state preceded by failure to thrive, fever and possibly shaking chills, and a global decline in function. It was felt that she may have urinary tract infection. She was intubated and artificially ventilated, started on intravenous fluids, and antibiotics, and was observed in the ICU. 3. She does have a history of seizures but has not been observed to have any seizures during hospitalization. 4. An EEG performed on 02/18/2020 revealed: An encephalopathy of a moderate degree with a toxic metabolic component. Right temporal focal dysfunction. A right temporal epileptogenic focus with phase reversals in the mid temporal region. 5. She continues to be comatose. There is been no significant change in her medical or neurological condition. It is still unclear as to what exactly her baseline neurological function was prior to this admission. 6. On neurological examination at this time she is comatose and does not respond to any external stimuli, other than nonpurposeful withdrawal of both upper extremities and deep pain. She does have brainstem reflexes in the form of eye movements on oculocephalic maneuvers, and spontaneous ventilations. Her deep tendon reflexes are globally absent and the plantar responses mute. 7. Her latest laboratory data on my initial evaluation revealed an anemia with a hemoglobin of 10.1 g, AST elevated at 49, alkaline phosphate is elevated at 198, proBNP elevated at 11,463, normal PO2 at 83, minimally low PCO2 at 33, normal TSH, and a therapeutic Tegretol level at 10.2. 8. Further laboratory tests have revealed a normal vitamin B12 level, normal folate, ammonia level elevated at 46, and an elevated ESR at 90. 9. The CT scan of the brain without contrast performed on 02/21/2020 revealed "Innumerable bilateral meningiomas, white matter edema of the left cerebellar hemisphere and the right cerebral hemisphere, mass-effect upon the right lateral ventricle with shift of the midline structures from the right to the left, loss of salas-white differentiation, but no acute pathology." The findings are very similar to a scan performed in November 2019. 10. The patient's history, neurological examination, CT scan of the brain and EEG are most consistent with a significant toxic metabolic encephalopathy superimposed on significant structural brain disease but seems to be old. At this point in time it is unknown if the patient may also have acute intracranial pathology as an MRI scan cannot be obtained. 11. With regards to her seizure disorder, the patient has not had any clinical seizures while hospitalized and in addition the EEG also did not reveal any seizures but did reveal interictal phenomena emanating from the right temporal region. Recommendations RECOMMENDATIONS: 1. Continue present management. 2. Continue trial of Decadron 4 mg 3 times a day for a total of 5 days or so to determine if there is any improvement in her condition with decrease in cerebral edema. 3. Continue prehospitalization anticonvulsant regimen. 4. Try to determine the patient's prehospitalization baseline and to when exactly she was able to talk and walk. 5. Observe closely. Otoniel Ellis M.D., M.S.P.H. Neurologist & Clinical Neurophysiologist Otonile Ellis MD Feb 24, 2020 13:22
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
--- NOTE | 2020-02-24 15:01 | General Progress Note ---
Assessment/Plan Problem List: (1) Seizure disorder ICD Codes: G40.909 - Epilepsy, unspecified, not intractable,without status epilepticus SNOMED: 356890548 (2) Pulmonary hypertension ICD Codes: I27.20 - Pulmonary hypertension, unspecified SNOMED: 65339089 (3) Respiratory failure ICD Codes: J96.90 - Respiratory failure, unspecified, unspecified whether with hypoxia or hypercapnia SNOMED: 276093536 Qualifiers: Qualified Codes: J96.01 - Acute respiratory failure with hypoxia (4) Severe sepsis ICD Codes: A41.9 - Sepsis, unspecified organism; R65.20 - Severe sepsis without septic shock SNOMED: 18989663 (5) NSTEMI (non-ST elevated myocardial infarction) ICD Codes: I21.4 - Non-ST elevation (NSTEMI) myocardial infarction SNOMED: 04371732 (6) Fever ICD Codes: R50.9 - Fever, unspecified SNOMED: 997703771 (7) Dyspnea ICD Codes: R06.00 - Dyspnea, unspecified SNOMED: 564440580 Assessment/Plan: cont vent support resp care wean as able iv steroids per neuro sz rx monitor for szs tube feeds reglan for high residuals eliquis remains guarded Subjective ROS Limited/Unobtainable: Yes Constitutional: Reports: malaise, weakness HEENT: Reports: no symptoms Cardiovascular: Reports: edema Respiratory: Reports: shortness of breath, sputum Gastrointestinal/Abdominal: Reports: difficulty swallowing Genitourinary: Reports: no symptoms Neurologic/Psychiatric: Reports: pre-existing deficit, seizure Endocrine: Reports: no symptoms Hematologic/Lymphatic: Reports: anemia Allergies: Coded Allergies: PENICILLINS (Verified Allergy, Severe, 08/07/12) FISH CONTAINING PRODUCTS (Verified Allergy, Unknown, 06/02/18) Uncoded Allergies: seafood (Allergy, Unknown, 06/02/18) All Systems: reviewed and negative except above Subjective Remains poorly responsive. No reports of seizures. Has some spontaneous movements of the upper extremities. Not weaning. Tolerating tube feeds. on steroids. weaning. Objective Last 24 Hour Vital Signs Date Time Temp Pulse Resp B/P (MAP) Pulse Ox O2 Delivery O2 Flow Rate FiO2 02/24/20 14:00 71 15 109/70 (83) 98 02/24/20 13:10 70 16 30 02/24/20 13:00 63 12 92/56 (68) 02/24/20 12:00 98.2 70 16 102/63 (76) 100 02/24/20 12:00 30 02/24/20 12:00 Mechanical Ventilator 02/24/20 11:41 71 02/24/20 11:00 68 17 106/67 (80) 95 02/24/20 11:00 68 17 30 02/24/20 10:00 62 13 94/59 (71) 100 02/24/20 09:25 72 17 30 02/24/20 09:00 84 17 113/77 (89) 95 02/24/20 08:43 86 16 30 02/24/20 08:29 86 130/95 02/24/20 08:14 30 02/24/20 08:00 97.5 94 18 130/95 (107) 100 02/24/20 08:00 30 02/24/20 08:00 Mechanical Ventilator 02/24/20 07:46 87 02/24/20 07:14 100 02/24/20 07:14 88 16 30 30 02/24/20 07:00 83 17 111/78 (89) 02/24/20 06:30 84 20 02/24/20 06:00 81 16 117/81 (93) 100 02/24/20 05:30 84 16 104/71 (82) 100 02/24/20 05:13 91 17 30 02/24/20 05:00 89 16 123/90 (101) 100 02/24/20 04:00 30 02/24/20 04:00 82 02/24/20 04:00 Mechanical Ventilator 02/24/20 04:00 98.8 88 18 101/70 (80) 100 02/24/20 03:42 85 17 30 02/24/20 03:41 85 17 100 Mechanical Ventilator 30 02/24/20 03:00 86 18 120/77 (91) 100 02/24/20 02:00 88 18 113/77 (89) 100 02/24/20 01:18 84 16 30 02/24/20 01:00 82 15 97/67 (77) 100 02/24/20 00:30 86 17 107/69 (82) 100 02/24/20 00:00 88 02/24/20 00:00 Mechanical Ventilator 02/24/20 00:00 30 02/24/20 00:00 98.4 88 17 112/71 (85) 100 02/23/20 23:12 81 18 30 02/23/20 23:00 94 21 106/52 (70) 100 02/23/20 22:00 90 16 106/66 (79) 100 02/23/20 21:00 90 15 104/62 (76) 100 02/23/20 20:58 88 102/55 02/23/20 20:40 87 15 30 02/23/20 20:00 82 02/23/20 20:00 30 02/23/20 20:00 Mechanical Ventilator 02/23/20 20:00 98.0 91 15 103/59 (74) 100 02/23/20 19:00 89 15 106/64 (78) 02/23/20 19:00 87 16 30 02/23/20 18:00 88 14 111/68 (82) 100 02/23/20 17:00 78 18 30 02/23/20 17:00 77 15 91/60 (70) 100 02/23/20 16:00 74 02/23/20 16:00 Mechanical Ventilator 02/23/20 16:00 98.4 80 17 95/64 (74) 100 02/23/20 15:10 78 16 30 Intake and Output 02/23/20 02/24/20 19:00 07:00 Intake Total 520 ml 365 ml Output Total 780 ml 360 ml Balance -260 ml 5 ml Free Water 35 ml IV Total 155 ml 215 ml Tube Feeding 330 ml 150 ml Output Urine Total 780 ml 360 ml # Bowel Movements 2 Laboratory Tests 02/24/20 03:50: White Blood Count 10.7, Red Blood Count 3.06L, Hemoglobin 9.5L, Hematocrit 29.6L , Mean Corpuscular Volume 97, Mean Corpuscular Hemoglobin 31.0, Mean Corpuscular Hemoglobin Concent 32.1, Red Cell Distribution Width 12.5, Platelet Count 349, Mean Platelet Volume 7.5, Neutrophils (%) (Auto) , Lymphocytes (%) ( Auto) , Monocytes (%) (Auto) , Eosinophils (%) (Auto) , Basophils (%) (Auto) , Sodium Level 139, Potassium Level 5.1, Chloride Level 109H, Carbon Dioxide Level 18L, Anion Gap 12, Blood Urea Nitrogen 37H, Creatinine 1.2, Estimat Glomerular Filtration Rate 57.9, Glucose Level 134H, Calcium Level 8.4L, Magnesium Level 2.0, Total Bilirubin 0.5, Aspartate Amino Transf (AST/SGOT) 47H , Alanine Aminotransferase (ALT/SGPT) 56, Alkaline Phosphatase 164H, Troponin I 0.111H, Pro-B-Type Natriuretic Peptide 82857N, Total Protein 6.2L, Albumin 1.5L , Globulin 4.7, Albumin/Globulin Ratio 0.3L 02/24/20 08:44: Arterial Blood pH 7.355, Arterial Blood Partial Pressure CO2 35.0, Arterial Blood Partial Pressure O2 66.3L, Arterial Blood HCO3 19.1L, Arterial Blood Oxygen Saturation 90.6L, Arterial Blood Base Excess -5.7L, Jax Test Positive Height (Feet): 5 Height (Inches): 5.00 Weight (Pounds): 145 Objective General Appearance: WD/WN, confused EENT: PERRL/EOMI, normal ENT inspection Neck: non-tender, normal alignment Cardiovascular: normal peripheral pulses, normal rate Respiratory/Chest: chest wall non-tender, lungs clear, normal breath sounds Abdomen: normal bowel sounds, non tender Edema: no edema noted Arm (L), no edema noted Arm (R) Neurologic: disoriented, unresponsive Skin: normal pigmentation Lymphatic: normal anterior cervical (L), normal anterior cervical (R) Liborio Dugan MD Feb 24, 2020 15:01
--- NOTE | 2020-02-24 16:23 | Diagnostic Imaging Report ---
Indication: Abnormal chest sounds Technique: One view of the chest Comparison: 02/19/2020 Findings: There is increased pleural fluid on the left, new pleural fluid on the right. Interstitial and airspace congestion appears increased. Heart size is upper limits normal. Stable satisfactory positions of endotracheal and orogastric tubes Impression: Worsening bilateral pleural fluid and interstitial and airspace edema versus infiltrates.
[2020-02-24] MEDS: Iron Sucrose 100 MG in NS 55 ML IV SCH (20:04)
[2020-02-25] VITALS (24 sets, daily range): BP systolic 94–133; BP diastolic 51–82
--- NOTE | 2020-02-25 01:53 | Cardiology Progress Note ---
Subjective DATE OF SERVICE: Feb 24, 2020 On vent support - 30% FIO2; not weaning; plans for trach noted. BP remains stable range No new fever spikes. Per neuro, no seizure activity noted Monitor: sinus tachycardia and sinus rhythm Troponin levels trending down. CXR (02/24/20) worsening infiltrates, edema, and effusions. Objective Last 24 Hour Vital Signs Date Time Temp Pulse Resp B/P (MAP) Pulse Ox O2 Delivery O2 Flow Rate FiO2 02/25/20 01:00 72 13 104/72 (83) 02/25/20 00:00 30 02/25/20 00:00 98.3 76 17 117/75 (89) 100 02/25/20 00:00 Mechanical Ventilator 02/25/20 00:00 79 02/24/20 23:20 79 17 30 02/24/20 23:00 80 15 124/82 (96) 100 02/24/20 22:00 85 17 120/86 (97) 100 02/24/20 21:36 81 119/82 02/24/20 21:30 71 17 30 02/24/20 21:00 82 18 115/83 (94) 100 02/24/20 20:00 Mechanical Ventilator 02/24/20 20:00 97.9 83 15 140/90 (107) 99 02/24/20 20:00 30 02/24/20 20:00 79 02/24/20 19:51 74 13 30 02/24/20 19:00 82 16 101/69 (80) 99 02/24/20 18:00 82 17 128/84 (99) 02/24/20 17:00 78 15 114/80 (91) 02/24/20 16:40 75 17 30 02/24/20 16:00 30 02/24/20 16:00 97.5 78 22 106/78 (87) 99 02/24/20 16:00 Mechanical Ventilator 02/24/20 15:42 66 02/24/20 15:00 68 17 30 02/24/20 15:00 71 18 105/70 (82) 100 02/24/20 14:00 71 15 109/70 (83) 98 02/24/20 13:10 70 16 30 02/24/20 13:00 63 12 92/56 (68) 02/24/20 12:00 98.2 70 16 102/63 (76) 100 02/24/20 12:00 30 02/24/20 12:00 Mechanical Ventilator 02/24/20 11:41 71 02/24/20 11:00 68 17 106/67 (80) 95 02/24/20 11:00 68 17 30 02/24/20 10:00 62 13 94/59 (71) 100 02/24/20 09:25 72 17 30 02/24/20 09:00 84 17 113/77 (89) 95 02/24/20 08:43 86 16 30 02/24/20 08:29 86 130/95 02/24/20 08:14 30 02/24/20 08:00 97.5 94 18 130/95 (107) 100 02/24/20 08:00 30 02/24/20 08:00 Mechanical Ventilator 02/24/20 07:46 87 02/24/20 07:14 100 02/24/20 07:14 88 16 30 30 02/24/20 07:00 83 17 111/78 (89) 02/24/20 06:30 84 20 02/24/20 06:00 81 16 117/81 (93) 100 02/24/20 05:30 84 16 104/71 (82) 100 02/24/20 05:13 91 17 30 02/24/20 05:00 89 16 123/90 (101) 100 02/24/20 04:00 30 02/24/20 04:00 82 02/24/20 04:00 Mechanical Ventilator 02/24/20 04:00 98.8 88 18 101/70 (80) 100 02/24/20 03:42 85 17 30 02/24/20 03:41 85 17 100 Mechanical Ventilator 30 02/24/20 03:00 86 18 120/77 (91) 100 02/24/20 02:00 88 18 113/77 (89) 100 ROS: no change from my evaluation on 02/14/20 HEENT: Orally intubated RHYTHM: ST LUNGS: bilateral rhonchi CARDIAC: normal rate, regular rhythm, normal S1 and S2 ABDOMEN: normal bowel sounds, non tender, soft EXTREMITIES: non-tender, trace edema Laboratory Tests Test 02/24/20 03:50 02/24/20 08:44 02/24/20 15:10 White Blood Count 10.7 K/UL (4.8-10.8) Red Blood Count 3.06 M/UL (4.20-5.40) L Hemoglobin 9.5 G/DL (12.0-16.0) L Hematocrit 29.6 % (37.0-47.0) L Mean Corpuscular Volume 97 FL (80-99) Mean Corpuscular Hemoglobin 31.0 PG (27.0-31.0) Mean Corpuscular Hemoglobin Concent 32.1 G/DL (32.0-36.0) Red Cell Distribution Width 12.5 % (11.6-14.8) Platelet Count 349 K/UL (150-450) Mean Platelet Volume 7.5 FL (6.5-10.1) Neutrophils (%) (Auto) % (45.0-75.0) Lymphocytes (%) (Auto) % (20.0-45.0) Monocytes (%) (Auto) % (1.0-10.0) Eosinophils (%) (Auto) % (0.0-3.0) Basophils (%) (Auto) % (0.0-2.0) Sodium Level 139 MMOL/L (136-145) Potassium Level 5.1 MMOL/L (3.5-5.1) Chloride Level 109 MMOL/L (98-107) H Carbon Dioxide Level 18 MMOL/L (21-32) L Anion Gap 12 mmol/L (5-15) Blood Urea Nitrogen 37 mg/dL (7-18) H Creatinine 1.2 MG/DL (0.55-1.30) Estimat Glomerular Filtration Rate 57.9 mL/min (>60) Glucose Level 134 MG/DL (74-106) H Calcium Level 8.4 MG/DL (8.5-10.1) L Magnesium Level 2.0 MG/DL (1.8-2.4) Total Bilirubin 0.5 MG/DL (0.2-1.0) Aspartate Amino Transf (AST/SGOT) 47 U/L (15-37) H Alanine Aminotransferase (ALT/SGPT) 56 U/L (12-78) Alkaline Phosphatase 164 U/L (46-116) H Troponin I 0.111 ng/mL (0.000-0.056) Pro-B-Type Natriuretic Peptide 18237 pg/mL (0-125) H Total Protein 6.2 G/DL (6.4-8.2) L Albumin 1.5 G/DL (3.4-5.0) L Globulin 4.7 g/dL Albumin/Globulin Ratio 0.3 (1.0-2.7) L Arterial Blood pH 7.355 (7.350-7.450) Arterial Blood Partial Pressure CO2 35.0 mmHg (35.0-45.0) Arterial Blood Partial Pressure O2 66.3 mmHg (75.0-100.0) L Arterial Blood HCO3 19.1 mmol/L (22.0-26.0) L Arterial Blood Oxygen Saturation 90.6 % (95-100) L Arterial Blood Base Excess -5.7 (-2-2) L Jax Test Positive Activated Partial Thromboplast Time 31 SEC (23-33) Assessment/Plan Assessment/Plan Respiratory Failure UTI Sepsis with shock Acute myocardial infarction (NSTE) Neurofibromatosis with edema Hypokalemia Hypomagnesemia Hypovolemia Pulmonary Hypertension Aspiration PNA Seizure Disorder Vent support Anti-sz meds Steroids on board - taper per neuro anti-plt rx and anticoagulation for now Beta blockade Maintain IVF Antimicrobials and resp rx Will need to optimize status and hold anti-coagulation for trach and PEG. Marcus Main MD Feb 25, 2020 01:53
[2020-02-25] MEDS: Metoclopramide 10mg/2ml Inj IVP PRN (05:09)
[2020-02-25 05:38] LABS: HEMATOCRIT 31.8 % (37.0-47.0); HEMOGLOBIN 10.5 G/DL (12.0-16.0); MEAN CORPUSCULAR VOLUME 95 FL (80-99); PLATELET COUNT 412 K/UL (150-450); RED BLOOD COUNT 3.36 M/UL (4.20-5.40); RED CELL DISTRIBUTION WIDTH 12.5 % (11.6-14.8); WHITE BLOOD COUNT 9.7 K/UL (4.8-10.8)
[2020-02-25 06:12] LABS: ALANINE AMINOTRANSFERASE 57 U/L (12-78); ALBUMIN 1.8 G/DL (3.4-5.0); ALBUMIN/GLOBULIN RATIO 0.4 (1.0-2.7); ALKALINE PHOSPHATASE 173 U/L (46-116); AMYLASE 33 U/L (25-115); ANION GAP 11 mmol/L (5-15); ASPARTATE AMINO TRANSFERASE 46 U/L (15-37); BILIRUBIN,TOTAL 0.3 MG/DL (0.2-1.0); BLOOD UREA NITROGEN 42 mg/dL (7-18); CALCIUM 8.4 MG/DL (8.5-10.1); CARBON DIOXIDE 19 MMOL/L (21-32); CHLORIDE 106 MMOL/L (98-107); CREATININE 1.3 MG/DL (0.55-1.30); POTASSIUM 4.3 MMOL/L (3.5-5.1); SODIUM 136 MMOL/L (136-145)
[2020-02-25] MEDS: Lacri-Lube Opth Oint 3.5gm BOTH EYES SCH ×3 (08:43→17:44)
[2020-02-25] MEDS: levETIRAcetam 1,000mg/NS100ml 100 ML IVPB SCH ×2 (08:45→20:29)
[2020-02-25] MEDS: Cefepime HCl 2 GM in D5W 55 ML IVPB SCH ×2 (08:45→20:29)
[2020-02-25] MEDS: carBAMazepine 200mg tab NG SCH ×3 (08:46→17:44)
[2020-02-25] MEDS: Eliquis 5mg tablet NGT SCH (08:46)
[2020-02-25] MEDS: Aspirin Baby 81mg NG SCH (08:46)
[2020-02-25] MEDS: Revatio 20mg tab ORAL SCH ×3 (08:48→17:45)
[2020-02-25] MEDS: SELEXIPAG ORAL SCH ×3 (08:48→17:45)
[2020-02-25] MEDS: OPSUMIT 10 MG ORAL SCH (09:00)
--- NOTE | 2020-02-25 09:04 | Diagnostic Imaging Report ---
EXAM: XR Chest, 1 View CLINICAL HISTORY: F/U TECHNIQUE: Frontal view of the chest. COMPARISON: Chest radiograph February 24, 2020 FINDINGS/IMPRESSION: There is an endotracheal tube terminates approximately 5.6 cm above the jean. Enteric feeding tube terminates in the stomach. Small bilateral pleural effusions, which have mildly improved when compared to February 24, 2020. Mild vascular condition, which has also mildly improved. No pneumothorax. Cardiomegaly.
--- NOTE | 2020-02-25 09:41 | Surgery Progress Note ---
Surgery Progress Note Subjective Additional Comments plan trach thursday hold anticoag Objective Last 24 Hour Vital Signs Date Time Temp Pulse Resp B/P (MAP) Pulse Ox O2 Delivery O2 Flow Rate FiO2 02/25/20 09:00 78 16 99/59 (72) 100 02/25/20 08:46 79 99/59 02/25/20 08:00 98.2 84 16 117/79 (92) 100 02/25/20 07:06 75 17 30 02/25/20 07:00 80 16 114/72 (86) 100 02/25/20 06:30 82 16 02/25/20 06:00 84 17 108/76 (87) 100 02/25/20 05:41 82 17 30 02/25/20 05:00 81 17 113/75 (88) 100 02/25/20 04:00 Mechanical Ventilator 02/25/20 04:00 30 02/25/20 04:00 80 02/25/20 04:00 97.9 85 18 107/71 (83) 02/25/20 03:00 83 17 112/79 (90) 100 02/25/20 02:52 82 19 30 02/25/20 02:00 80 16 118/79 (92) 100 02/25/20 01:38 83 18 30 02/25/20 01:00 72 13 104/72 (83) 02/25/20 00:00 30 02/25/20 00:00 98.3 76 17 117/75 (89) 100 02/25/20 00:00 Mechanical Ventilator 02/25/20 00:00 79 02/24/20 23:20 79 17 30 02/24/20 23:00 80 15 124/82 (96) 100 02/24/20 22:00 85 17 120/86 (97) 100 02/24/20 21:36 81 119/82 02/24/20 21:30 71 17 30 02/24/20 21:00 82 18 115/83 (94) 100 02/24/20 20:00 Mechanical Ventilator 02/24/20 20:00 97.9 83 15 140/90 (107) 99 02/24/20 20:00 30 02/24/20 20:00 79 02/24/20 19:51 74 13 30 02/24/20 19:00 82 16 101/69 (80) 99 02/24/20 18:00 82 17 128/84 (99) 02/24/20 17:00 78 15 114/80 (91) 02/24/20 16:40 75 17 30 02/24/20 16:00 30 02/24/20 16:00 97.5 78 22 106/78 (87) 99 02/24/20 16:00 Mechanical Ventilator 02/24/20 15:42 66 02/24/20 15:00 68 17 30 02/24/20 15:00 71 18 105/70 (82) 100 02/24/20 14:00 71 15 109/70 (83) 98 02/24/20 13:10 70 16 30 02/24/20 13:00 63 12 92/56 (68) 02/24/20 12:00 98.2 70 16 102/63 (76) 100 02/24/20 12:00 30 02/24/20 12:00 Mechanical Ventilator 02/24/20 11:41 71 02/24/20 11:00 68 17 106/67 (80) 95 02/24/20 11:00 68 17 30 02/24/20 10:00 62 13 94/59 (71) 100 I&O Intake and Output 02/24/20 02/25/20 19:00 07:00 Intake Total 295 ml 255 ml Output Total 520 ml 1150 ml Balance -225 ml -895 ml IV Total 155 ml 155 ml Tube Feeding 140 ml 100 ml Output Urine Total 520 ml 1150 ml Cardiovascular: RSR Respiratory: decreased breath sounds Abdomen: soft, non-tender, present bowel sounds Extremities: no edema, no tenderness, no cyanosis Laboratory Tests Test 02/24/20 15:10 02/25/20 04:35 Activated Partial Thromboplast Time 31 SEC (23-33) 31 SEC (23-33) White Blood Count 9.7 K/UL (4.8-10.8) Red Blood Count 3.36 M/UL (4.20-5.40) L Hemoglobin 10.5 G/DL (12.0-16.0) L Hematocrit 31.8 % (37.0-47.0) L Mean Corpuscular Volume 95 FL (80-99) Mean Corpuscular Hemoglobin 31.2 PG (27.0-31.0) H Mean Corpuscular Hemoglobin Concent 32.9 G/DL (32.0-36.0) Red Cell Distribution Width 12.5 % (11.6-14.8) Platelet Count 412 K/UL (150-450) Mean Platelet Volume 7.5 FL (6.5-10.1) Neutrophils (%) (Auto) % (45.0-75.0) Lymphocytes (%) (Auto) % (20.0-45.0) Monocytes (%) (Auto) % (1.0-10.0) Eosinophils (%) (Auto) % (0.0-3.0) Basophils (%) (Auto) % (0.0-2.0) Neutrophils % (Manual) Pending Lymphocytes % (Manual) Pending Platelet Estimate Pending Platelet Morphology Pending Erythrocyte Sedimentation Rate 65 MM/HR (0-20) H Sodium Level 136 MMOL/L (136-145) Potassium Level 4.3 MMOL/L (3.5-5.1) Chloride Level 106 MMOL/L (98-107) Carbon Dioxide Level 19 MMOL/L (21-32) L Anion Gap 11 mmol/L (5-15) Blood Urea Nitrogen 42 mg/dL (7-18) H Creatinine 1.3 MG/DL (0.55-1.30) Estimat Glomerular Filtration Rate 52.8 mL/min (>60) Glucose Level 137 MG/DL (74-106) H Calcium Level 8.4 MG/DL (8.5-10.1) L Total Bilirubin 0.3 MG/DL (0.2-1.0) Aspartate Amino Transf (AST/SGOT) 46 U/L (15-37) H Alanine Aminotransferase (ALT/SGPT) 57 U/L (12-78) Alkaline Phosphatase 173 U/L (46-116) H C-Reactive Protein, Quantitative 3.9 mg/dL (0.00-0.90) H Total Protein 6.4 G/DL (6.4-8.2) Albumin 1.8 G/DL (3.4-5.0) L Globulin 4.6 g/dL Albumin/Globulin Ratio 0.4 (1.0-2.7) L Amylase Level 33 U/L (25-115) Lipase 62 U/L (73-393) L Plan Problems: (1) Respiratory failure Assessment & Plan: Respiratory insufficiency requiring prolonged ventilatory support currently remains on vent support unable to wean safely. Patient with altered level consciousness this time not responsive. Patient is a candidate for a tracheostomy. Pulmonology discussed with the family and they have agreed to proceed. Will optimize and plan for surgical intervention soon. Tracheostomy indicated and recommended. Thank you Lucian horvath patient's care will follow with recommendations Bassam Hui Feb 25, 2020 09:41
[2020-02-25] MEDS: Metoclopramide 10mg/2ml Inj IVP SCH ×2 (13:09→18:19)
--- NOTE | 2020-02-25 13:24 | Critical Care Progress Note ---
Assessment/Plan Assessment/Plan respiratory failure pneumonia improved by CXR pulmonary hypertension elevated troponin possible NSTEMI paraplegia hypoxemia seizure history brain masses, chronic moderate PCM PLAN care noted- with family; trach and peg next week IV antibiotics noted adjust ETT respiratory care and nursing care noted Ventilatory support on- trying to wean daily mental status remains poor and not improved monitor acid base and adjust supportive care suction as needed monitor heart rate seizure meds- as is oxygen therapy prognosis same nutrition off load and monitor skin update family and call consultants will need subacute care medications/laboratory data/nursing notes/ICU care reviewed in detail note reviewed and edited care discussed with RN and RT ICU time spent >40 minutes Critical Care - Subjective Interval Events: care noted not weaning dw surgery plan for trach on thursday altered ROS Limited/Unobtainable: Yes Condition: critical EKG Rhythm: Sinus Rhythm Residuals: minimal Tube Feeding Tolerated: yes I&O: Intake and Output 02/24/20 02/25/20 19:00 07:00 Intake Total 295 ml 255 ml Output Total 520 ml 1150 ml Balance -225 ml -895 ml IV Total 155 ml 155 ml Tube Feeding 140 ml 100 ml Output Urine Total 520 ml 1150 ml Critical Care - Objective ET-Tube: 7.0 ET Position: 23 Last 24 Hour Vital Signs Date Time Temp Pulse Resp B/P (MAP) Pulse Ox O2 Delivery O2 Flow Rate FiO2 02/25/20 12:00 30 02/25/20 12:00 98.3 79 16 102/66 (78) 99 02/25/20 12:00 Mechanical Ventilator 02/25/20 11:00 81 16 101/59 (73) 100 02/25/20 10:57 81 17 30 02/25/20 10:00 73 16 95/56 (69) 100 02/25/20 09:08 84 17 30 02/25/20 09:00 78 16 99/59 (72) 100 02/25/20 08:46 79 99/59 02/25/20 08:00 98.2 84 16 117/79 (92) 100 02/25/20 08:00 Mechanical Ventilator 02/25/20 08:00 30 02/25/20 07:06 75 17 30 02/25/20 07:00 80 16 114/72 (86) 100 02/25/20 06:30 82 16 02/25/20 06:00 84 17 108/76 (87) 100 02/25/20 05:41 82 17 30 02/25/20 05:00 81 17 113/75 (88) 100 02/25/20 04:00 Mechanical Ventilator 02/25/20 04:00 30 02/25/20 04:00 80 02/25/20 04:00 97.9 85 18 107/71 (83) 02/25/20 03:00 83 17 112/79 (90) 100 02/25/20 02:52 82 19 30 02/25/20 02:00 80 16 118/79 (92) 100 02/25/20 01:38 83 18 30 02/25/20 01:00 72 13 104/72 (83) 02/25/20 00:00 30 02/25/20 00:00 98.3 76 17 117/75 (89) 100 02/25/20 00:00 Mechanical Ventilator 02/25/20 00:00 79 02/24/20 23:20 79 17 30 02/24/20 23:00 80 15 124/82 (96) 100 02/24/20 22:00 85 17 120/86 (97) 100 02/24/20 21:36 81 119/82 02/24/20 21:30 71 17 30 02/24/20 21:00 82 18 115/83 (94) 100 02/24/20 20:00 Mechanical Ventilator 02/24/20 20:00 97.9 83 15 140/90 (107) 99 02/24/20 20:00 30 02/24/20 20:00 79 02/24/20 19:51 74 13 30 02/24/20 19:00 82 16 101/69 (80) 99 02/24/20 18:00 82 17 128/84 (99) 02/24/20 17:00 78 15 114/80 (91) 02/24/20 16:40 75 17 30 02/24/20 16:00 30 02/24/20 16:00 97.5 78 22 106/78 (87) 99 02/24/20 16:00 Mechanical Ventilator 02/24/20 15:42 66 02/24/20 15:00 68 17 30 02/24/20 15:00 71 18 105/70 (82) 100 02/24/20 14:00 71 15 109/70 (83) 98 Labs: Laboratory Tests 02/24/20 15:10: Activated Partial Thromboplast Time 31 02/25/20 04:35: Activated Partial Thromboplast Time 31, White Blood Count 9.7, Red Blood Count 3.36L, Hemoglobin 10.5L, Hematocrit 31.8L, Mean Corpuscular Volume 95, Mean Corpuscular Hemoglobin 31.2H, Mean Corpuscular Hemoglobin Concent 32.9, Red Cell Distribution Width 12.5, Platelet Count 412, Mean Platelet Volume 7.5, Neutrophils (%) (Auto) , Lymphocytes (%) (Auto) , Monocytes (%) (Auto) , Eosinophils (%) (Auto) , Basophils (%) (Auto) , Differential Total Cells Counted 100, Neutrophils % (Manual) 79H, Lymphocytes % (Manual) 15L, Monocytes % (Manual) 6, Eosinophils % (Manual) 0, Basophils % (Manual) 0, Band Neutrophils 0, Nucleated Red Blood Cells 10, Platelet Estimate Adequate, Platelet Morphology Normal, Hypochromasia 1+, Anisocytosis 1+, Erythrocyte Sedimentation Rate 65H, Sodium Level 136, Potassium Level 4.3, Chloride Level 106, Carbon Dioxide Level 19L, Anion Gap 11, Blood Urea Nitrogen 42H, Creatinine 1.3, Estimat Glomerular Filtration Rate 52.8, Glucose Level 137H, Calcium Level 8.4L, Total Bilirubin 0.3, Aspartate Amino Transf (AST/SGOT) 46H, Alanine Aminotransferase (ALT/SGPT) 57, Alkaline Phosphatase 173H, C-Reactive Protein, Quantitative 3.9H, Total Protein 6.4, Albumin 1.8L, Globulin 4.6, Albumin/Globulin Ratio 0.4L, Amylase Level 33, Lipase 62L Objective: WDWN NAD on vent reduced breath sounds bilaterally without rhonchi or wheeze [id number] without MRG NABS nontender no HSM no CCE nonfocal poor LOC reduced ROM skin noted reviewed and edited feeding tube in place Juan Snow MD Feb 25, 2020 13:24
--- NOTE | 2020-02-25 13:27 | General Progress Note ---
Assessment/Plan Assessment/Plan: Assessment - Resp failure - NGT dependent - Shock - s/p NH - anasarca - Anemia - abnormal LFT Recommendations - Continue NGT feeds - Vent - Supportive care - Await Trach - PEG to follow at late date Subjective Allergies: Coded Allergies: PENICILLINS (Verified Allergy, Severe, 08/07/12) FISH CONTAINING PRODUCTS (Verified Allergy, Unknown, 06/02/18) Uncoded Allergies: seafood (Allergy, Unknown, 06/02/18) Objective Last 24 Hour Vital Signs Date Time Temp Pulse Resp B/P (MAP) Pulse Ox O2 Delivery O2 Flow Rate FiO2 02/25/20 12:00 30 02/25/20 12:00 98.3 79 16 102/66 (78) 99 02/25/20 12:00 Mechanical Ventilator 02/25/20 11:00 81 16 101/59 (73) 100 02/25/20 10:57 81 17 30 02/25/20 10:00 73 16 95/56 (69) 100 02/25/20 09:08 84 17 30 02/25/20 09:00 78 16 99/59 (72) 100 02/25/20 08:46 79 99/59 02/25/20 08:00 98.2 84 16 117/79 (92) 100 02/25/20 08:00 Mechanical Ventilator 02/25/20 08:00 30 02/25/20 07:06 75 17 30 02/25/20 07:00 80 16 114/72 (86) 100 02/25/20 06:30 82 16 02/25/20 06:00 84 17 108/76 (87) 100 02/25/20 05:41 82 17 30 02/25/20 05:00 81 17 113/75 (88) 100 02/25/20 04:00 Mechanical Ventilator 02/25/20 04:00 30 02/25/20 04:00 80 02/25/20 04:00 97.9 85 18 107/71 (83) 02/25/20 03:00 83 17 112/79 (90) 100 02/25/20 02:52 82 19 30 02/25/20 02:00 80 16 118/79 (92) 100 02/25/20 01:38 83 18 30 02/25/20 01:00 72 13 104/72 (83) 02/25/20 00:00 30 02/25/20 00:00 98.3 76 17 117/75 (89) 100 02/25/20 00:00 Mechanical Ventilator 02/25/20 00:00 79 02/24/20 23:20 79 17 30 02/24/20 23:00 80 15 124/82 (96) 100 02/24/20 22:00 85 17 120/86 (97) 100 02/24/20 21:36 81 119/82 02/24/20 21:30 71 17 30 02/24/20 21:00 82 18 115/83 (94) 100 02/24/20 20:00 Mechanical Ventilator 02/24/20 20:00 97.9 83 15 140/90 (107) 99 02/24/20 20:00 30 02/24/20 20:00 79 02/24/20 19:51 74 13 30 02/24/20 19:00 82 16 101/69 (80) 99 02/24/20 18:00 82 17 128/84 (99) 02/24/20 17:00 78 15 114/80 (91) 02/24/20 16:40 75 17 30 02/24/20 16:00 30 02/24/20 16:00 97.5 78 22 106/78 (87) 99 02/24/20 16:00 Mechanical Ventilator 02/24/20 15:42 66 02/24/20 15:00 68 17 30 02/24/20 15:00 71 18 105/70 (82) 100 02/24/20 14:00 71 15 109/70 (83) 98 Intake and Output 02/24/20 02/25/20 19:00 07:00 Intake Total 295 ml 255 ml Output Total 520 ml 1150 ml Balance -225 ml -895 ml IV Total 155 ml 155 ml Tube Feeding 140 ml 100 ml Output Urine Total 520 ml 1150 ml Laboratory Tests 02/24/20 15:10: Activated Partial Thromboplast Time 31 02/25/20 04:35: Activated Partial Thromboplast Time 31, White Blood Count 9.7, Red Blood Count 3.36L, Hemoglobin 10.5L, Hematocrit 31.8L, Mean Corpuscular Volume 95, Mean Corpuscular Hemoglobin 31.2H, Mean Corpuscular Hemoglobin Concent 32.9, Red Cell Distribution Width 12.5, Platelet Count 412, Mean Platelet Volume 7.5, Neutrophils (%) (Auto) , Lymphocytes (%) (Auto) , Monocytes (%) (Auto) , Eosinophils (%) (Auto) , Basophils (%) (Auto) , Differential Total Cells Counted 100, Neutrophils % (Manual) 79H, Lymphocytes % (Manual) 15L, Monocytes % (Manual) 6, Eosinophils % (Manual) 0, Basophils % (Manual) 0, Band Neutrophils 0, Nucleated Red Blood Cells 10, Platelet Estimate Adequate, Platelet Morphology Normal, Hypochromasia 1+, Anisocytosis 1+, Erythrocyte Sedimentation Rate 65H, Sodium Level 136, Potassium Level 4.3, Chloride Level 106, Carbon Dioxide Level 19L, Anion Gap 11, Blood Urea Nitrogen 42H, Creatinine 1.3, Estimat Glomerular Filtration Rate 52.8, Glucose Level 137H, Calcium Level 8.4L, Total Bilirubin 0.3, Aspartate Amino Transf (AST/SGOT) 46H, Alanine Aminotransferase (ALT/SGPT) 57, Alkaline Phosphatase 173H, C-Reactive Protein, Quantitative 3.9H, Total Protein 6.4, Albumin 1.8L, Globulin 4.6, Albumin/Globulin Ratio 0.4L, Amylase Level 33, Lipase 62L Height (Feet): 5 Height (Inches): 5.00 Weight (Pounds): 145 Lilly Au MD Feb 25, 2020 13:27
--- NOTE | 2020-02-25 14:06 | General Progress Note ---
Assessment/Plan Problem List: (1) Seizure disorder ICD Codes: G40.909 - Epilepsy, unspecified, not intractable,without status epilepticus SNOMED: 864104429 (2) Pulmonary hypertension ICD Codes: I27.20 - Pulmonary hypertension, unspecified SNOMED: 55303271 (3) Respiratory failure ICD Codes: J96.90 - Respiratory failure, unspecified, unspecified whether with hypoxia or hypercapnia SNOMED: 572152585 Qualifiers: Qualified Codes: J96.01 - Acute respiratory failure with hypoxia (4) Severe sepsis ICD Codes: A41.9 - Sepsis, unspecified organism; R65.20 - Severe sepsis without septic shock SNOMED: 25957645 (5) NSTEMI (non-ST elevated myocardial infarction) ICD Codes: I21.4 - Non-ST elevation (NSTEMI) myocardial infarction SNOMED: 79301763 (6) Fever ICD Codes: R50.9 - Fever, unspecified SNOMED: 555316306 (7) Dyspnea ICD Codes: R06.00 - Dyspnea, unspecified SNOMED: 557329615 Assessment/Plan: cont vent support resp care wean as able iv steroids per neuro sz rx monitor for szs neuro checks tube feeds reglan for high residuals eliquis remains guarded Subjective ROS Limited/Unobtainable: Yes Constitutional: Reports: malaise, weakness HEENT: Reports: no symptoms Cardiovascular: Reports: no symptoms Respiratory: Reports: shortness of breath, sputum Gastrointestinal/Abdominal: Reports: difficulty swallowing Genitourinary: Reports: no symptoms Neurologic/Psychiatric: Reports: pre-existing deficit, seizure Endocrine: Reports: no symptoms Hematologic/Lymphatic: Reports: anemia Allergies: Coded Allergies: PENICILLINS (Verified Allergy, Severe, 08/07/12) FISH CONTAINING PRODUCTS (Verified Allergy, Unknown, 06/02/18) Uncoded Allergies: seafood (Allergy, Unknown, 06/02/18) All Systems: reviewed and negative except above Subjective no events. lethargic. remains orally intubated. has spontaneous eye opening and movement. no fevers. no szs. on steroids and iv abx. Objective Last 24 Hour Vital Signs Date Time Temp Pulse Resp B/P (MAP) Pulse Ox O2 Delivery O2 Flow Rate FiO2 02/25/20 13:00 77 16 112/66 (81) 100 02/25/20 12:00 30 02/25/20 12:00 98.3 79 16 102/66 (78) 99 02/25/20 12:00 Mechanical Ventilator 02/25/20 12:00 83 02/25/20 11:00 81 16 101/59 (73) 100 02/25/20 10:57 81 17 30 02/25/20 10:00 73 16 95/56 (69) 100 02/25/20 09:08 84 17 30 02/25/20 09:00 78 16 99/59 (72) 100 02/25/20 08:46 79 99/59 02/25/20 08:00 98.2 84 16 117/79 (92) 100 02/25/20 08:00 Mechanical Ventilator 02/25/20 08:00 30 02/25/20 08:00 84 02/25/20 07:06 75 17 30 02/25/20 07:00 80 16 114/72 (86) 100 02/25/20 06:30 82 16 02/25/20 06:00 84 17 108/76 (87) 100 02/25/20 05:41 82 17 30 02/25/20 05:00 81 17 113/75 (88) 100 02/25/20 04:00 Mechanical Ventilator 02/25/20 04:00 30 02/25/20 04:00 80 02/25/20 04:00 97.9 85 18 107/71 (83) 02/25/20 03:00 83 17 112/79 (90) 100 02/25/20 02:52 82 19 30 02/25/20 02:00 80 16 118/79 (92) 100 02/25/20 01:38 83 18 30 02/25/20 01:00 72 13 104/72 (83) 02/25/20 00:00 30 02/25/20 00:00 98.3 76 17 117/75 (89) 100 02/25/20 00:00 Mechanical Ventilator 02/25/20 00:00 79 02/24/20 23:20 79 17 30 02/24/20 23:00 80 15 124/82 (96) 100 02/24/20 22:00 85 17 120/86 (97) 100 02/24/20 21:36 81 119/82 02/24/20 21:30 71 17 30 02/24/20 21:00 82 18 115/83 (94) 100 02/24/20 20:00 Mechanical Ventilator 02/24/20 20:00 97.9 83 15 140/90 (107) 99 02/24/20 20:00 30 02/24/20 20:00 79 02/24/20 19:51 74 13 30 02/24/20 19:00 82 16 101/69 (80) 99 02/24/20 18:00 82 17 128/84 (99) 02/24/20 17:00 78 15 114/80 (91) 02/24/20 16:40 75 17 30 02/24/20 16:00 30 02/24/20 16:00 97.5 78 22 106/78 (87) 99 02/24/20 16:00 Mechanical Ventilator 02/24/20 15:42 66 02/24/20 15:00 68 17 30 02/24/20 15:00 71 18 105/70 (82) 100 Intake and Output 02/24/20 02/25/20 19:00 07:00 Intake Total 295 ml 255 ml Output Total 520 ml 1150 ml Balance -225 ml -895 ml IV Total 155 ml 155 ml Tube Feeding 140 ml 100 ml Output Urine Total 520 ml 1150 ml Laboratory Tests 02/24/20 15:10: Activated Partial Thromboplast Time 31 02/25/20 04:35: Activated Partial Thromboplast Time 31, White Blood Count 9.7, Red Blood Count 3.36L, Hemoglobin 10.5L, Hematocrit 31.8L, Mean Corpuscular Volume 95, Mean Corpuscular Hemoglobin 31.2H, Mean Corpuscular Hemoglobin Concent 32.9, Red Cell Distribution Width 12.5, Platelet Count 412, Mean Platelet Volume 7.5, Neutrophils (%) (Auto) , Lymphocytes (%) (Auto) , Monocytes (%) (Auto) , Eosinophils (%) (Auto) , Basophils (%) (Auto) , Differential Total Cells Counted 100, Neutrophils % (Manual) 79H, Lymphocytes % (Manual) 15L, Monocytes % (Manual) 6, Eosinophils % (Manual) 0, Basophils % (Manual) 0, Band Neutrophils 0, Nucleated Red Blood Cells 10, Platelet Estimate Adequate, Platelet Morphology Normal, Hypochromasia 1+, Anisocytosis 1+, Erythrocyte Sedimentation Rate 65H, Sodium Level 136, Potassium Level 4.3, Chloride Level 106, Carbon Dioxide Level 19L, Anion Gap 11, Blood Urea Nitrogen 42H, Creatinine 1.3, Estimat Glomerular Filtration Rate 52.8, Glucose Level 137H, Calcium Level 8.4L, Total Bilirubin 0.3, Aspartate Amino Transf (AST/SGOT) 46H, Alanine Aminotransferase (ALT/SGPT) 57, Alkaline Phosphatase 173H, C-Reactive Protein, Quantitative 3.9H, Total Protein 6.4, Albumin 1.8L, Globulin 4.6, Albumin/Globulin Ratio 0.4L, Amylase Level 33, Lipase 62L Height (Feet): 5 Height (Inches): 5.00 Weight (Pounds): 145 Objective General Appearance: WD/WN, confused EENT: PERRL/EOMI, normal ENT inspection Neck: non-tender, normal alignment Cardiovascular: normal peripheral pulses, normal rate Respiratory/Chest: chest wall non-tender, lungs clear, normal breath sounds Abdomen: normal bowel sounds, non tender Edema: no edema noted Arm (L), no edema noted Arm (R) Neurologic: disoriented, unresponsive Skin: normal pigmentation Lymphatic: normal anterior cervical (L), normal anterior cervical (R) Liborio Dugan MD Feb 25, 2020 14:06
--- NOTE | 2020-02-25 15:30 | Diagnostic Imaging Report ---
History: F/U Exam: XR CXR 1 VIEW at 14:11 Comparison: 02/25/2020 at 08:38 FINDINGS/IMPRESSION: Endotracheal tube 3 cm above the jean. Nasogastric tube tip fundus of the stomach. Small bilateral pleural effusions, left greater than right again noted. Associated bibasilar areas of patchy opacity not significantly changed.
--- NOTE | 2020-02-25 16:02 | Neurology Progress Note ---
Interim History Interim History Interim History Ms. Roseann Srinivasan is a 49-year-old, black lady, of unknown handedness, who does have a past history of neurofibromatosis, a seizure disorder, pulmonary hypertension, deafness of an unknown degree, and visual problems of an unknown degree. She was hospitalized on 02/13/2020 for an altered mental state preceded by failure to thrive, fever and possibly shaking chills, and a global decline in function. It was felt that she may have a urinary tract infection. She was intubated and artificially ventilated, started on intravenous fluids, and antibiotics, and was observed in the ICU. She does have a history of seizures but has not been observed to have any seizures during her hospitalization. She continues to be unresponsive. She has been opening and closing her eyes spontaneously. She however has not been able to interact in any manner. There has been no significant change in her medical or neurological condition. It is still unclear as to what exactly her baseline neurological function was prior to this admission. Review of Systems Neuro Review of Systems Unable to obtain. Objective Physical Exam Last Vital Signs Date Time Temp Pulse Resp B/P (MAP) Pulse Ox O2 Delivery O2 Flow Rate FiO2 02/25/20 15:00 72 16 98/57 (71) 100 02/25/20 12:00 30 02/25/20 12:00 98.3 02/25/20 12:00 Mechanical Ventilator Laboratory Tests Test 02/25/20 04:35 White Blood Count 9.7 K/UL (4.8-10.8) Red Blood Count 3.36 M/UL (4.20-5.40) L Hemoglobin 10.5 G/DL (12.0-16.0) L Hematocrit 31.8 % (37.0-47.0) L Mean Corpuscular Volume 95 FL (80-99) Mean Corpuscular Hemoglobin 31.2 PG (27.0-31.0) H Mean Corpuscular Hemoglobin Concent 32.9 G/DL (32.0-36.0) Red Cell Distribution Width 12.5 % (11.6-14.8) Platelet Count 412 K/UL (150-450) Mean Platelet Volume 7.5 FL (6.5-10.1) Neutrophils (%) (Auto) % (45.0-75.0) Lymphocytes (%) (Auto) % (20.0-45.0) Monocytes (%) (Auto) % (1.0-10.0) Eosinophils (%) (Auto) % (0.0-3.0) Basophils (%) (Auto) % (0.0-2.0) Differential Total Cells Counted 100 Neutrophils % (Manual) 79 % (45-75) H Lymphocytes % (Manual) 15 % (20-45) L Monocytes % (Manual) 6 % (1-10) Eosinophils % (Manual) 0 % (0-3) Basophils % (Manual) 0 % (0-2) Band Neutrophils 0 % (0-8) Nucleated Red Blood Cells 10 /100 WBC Platelet Estimate Adequate Platelet Morphology Normal Hypochromasia 1+ Anisocytosis 1+ Erythrocyte Sedimentation Rate 65 MM/HR (0-20) H Activated Partial Thromboplast Time 31 SEC (23-33) Sodium Level 136 MMOL/L (136-145) Potassium Level 4.3 MMOL/L (3.5-5.1) Chloride Level 106 MMOL/L (98-107) Carbon Dioxide Level 19 MMOL/L (21-32) L Anion Gap 11 mmol/L (5-15) Blood Urea Nitrogen 42 mg/dL (7-18) H Creatinine 1.3 MG/DL (0.55-1.30) Estimat Glomerular Filtration Rate 52.8 mL/min (>60) Glucose Level 137 MG/DL (74-106) H Calcium Level 8.4 MG/DL (8.5-10.1) L Total Bilirubin 0.3 MG/DL (0.2-1.0) Aspartate Amino Transf (AST/SGOT) 46 U/L (15-37) H Alanine Aminotransferase (ALT/SGPT) 57 U/L (12-78) Alkaline Phosphatase 173 U/L (46-116) H C-Reactive Protein, Quantitative 3.9 mg/dL (0.00-0.90) H Total Protein 6.4 G/DL (6.4-8.2) Albumin 1.8 G/DL (3.4-5.0) L Globulin 4.6 g/dL Albumin/Globulin Ratio 0.4 (1.0-2.7) L Amylase Level 33 U/L (25-115) Lipase 62 U/L (73-393) L Neurologic Exam Objective PHYSICAL EXAMINATION: GENERAL: She is a well-developed, relatively well-nourished, black lady, lying in an intensive care unit bed, connected to ventilator via an endotracheal tube. HEAD: Normocephalic and atraumatic. NECK: No neck rigidity was observed. EENT: She had bilateral chemosis involving the left side more than the right. SPINE: Cervical, thoracic and lumbosacral spine revealed no tenderness or paraspinal muscle spasm. NEUROLOGIC EXAMINATION: MENTAL STATUS EXAMINATION: She was comatose. She could not be aroused even on applying deep painful stimuli. She only responded to deep pain with nonpurposeful withdrawal in both upper extremities and no response in both lower extremities. Further mental status testing was impossible. SPEECH: Could not be tested. LANGUAGE: Could not be tested. CRANIAL NERVE EXAMINATION: II: She did not blink to threat. III, IV, : External ocular movements were present but restricted on oculocephalic maneuvers. The pupils were 3 mm in diameter equal, round, regular and did not react to light. V & VII: The corneal reflexes were absent bilaterally. However she moved her head when the cornea was stimulated. VIII: She did not respond to sounds and had no nystagmus. IX & X: The gag reflex was absent on manipulating the endotracheal tube. XI: The sternocleidomastoids and trapezii did not function. XII: The tongue could not be examined properly. MOTOR SYSTEM: The tone was diminished in all 4 extremities. Examination of muscle mass revealed generalized muscle wasting. Examination of power was impossible to perform because even on applying deep painful stimuli the only response seen was nonpurposeful withdrawal in both upper extremities. SENSORY EXAMINATION: She only responded to deep pain with nonpurposeful withdrawal in both upper extremities. REFLEXES: 0 at the biceps, triceps, brachioradialis, knees and ankles. The plantar responses were mute bilaterally. COORDINATION, STANCE & GAIT: Not be tested. ABNORMAL MOVEMENTS: None Impression/Recommendations Diagnostic Impression DIAGNOSTIC IMPRESSION: 1. Ms. Roseann Srinivasan is a 49-year-old, black lady, of unknown handedness, who does have a past history of neurofibromatosis, a seizure disorder, pulmonary hypertension, deafness of an unknown degree, and visual problems of an unknown degree. 2. She was hospitalized on 02/13/2020 and altered mental state preceded by failure to thrive, fever and possibly shaking chills, and a global decline in function. It was felt that she may have urinary tract infection. She was intubated and artificially ventilated, started on intravenous fluids, and antibiotics, and was observed in the ICU. 3. She does have a history of seizures but has not been observed to have any seizures during hospitalization. 4. An EEG performed on 02/18/2020 revealed: An encephalopathy of a moderate degree with a toxic metabolic component. Right temporal focal dysfunction. A right temporal epileptogenic focus with phase reversals in the mid temporal region. 5. She continues to be unresponsive. She has been opening and closing her eyes spontaneously. She however has not been able to interact in any manner. There has been no significant change in her medical or neurological condition. It is still unclear as to what exactly her baseline neurological function was prior to this admission. 6. On neurological examination at this time she is comatose and cannot be aroused even on applying deep painful stimuli. She only responds to deep pain with nonpurposeful withdrawal in both upper extremities and no response in both lower extremities. Further mental status testing is impossible. She does have brainstem reflexes in the form of eye movements on oculocephalic maneuvers, and spontaneous ventilations. Her deep tendon reflexes are globally absent and the plantar responses mute. 7. Her latest laboratory data on my initial evaluation revealed an anemia with a hemoglobin of 10.1 g, AST elevated at 49, alkaline phosphate is elevated at 198, proBNP elevated at 11,463, normal PO2 at 83, minimally low PCO2 at 33, normal TSH, and a therapeutic Tegretol level at 10.2. 8. Further laboratory tests have revealed a normal vitamin B12 level, normal folate, ammonia level elevated at 46, and an elevated ESR at 90. 9. The CT scan of the brain without contrast performed on 02/21/2020 revealed "Innumerable bilateral meningiomas, white matter edema of the left cerebellar hemisphere and the right cerebral hemisphere, mass-effect upon the right lateral ventricle with shift of the midline structures from the right to the left, loss of salas-white differentiation, but no acute pathology." The findings are very similar to a scan performed in November 2019. 10. The patient's history, neurological examination, CT scan of the brain and EEG are most consistent with a significant toxic metabolic encephalopathy superimposed on significant structural brain disease but seems to be old. At this point in time it is unknown if the patient may also have acute intracranial pathology as an MRI scan cannot be obtained. 11. With regards to her seizure disorder, the patient has not had any clinical seizures while hospitalized and in addition the EEG also did not reveal any seizures but did reveal interictal phenomena emanating from the right temporal region. Recommendations RECOMMENDATIONS: 1. Continue present management. 2. Continue prehospitalization anticonvulsant regimen. 3. Try to determine the patient's prehospitalization baseline and to when exactly she was able to talk and walk. 4. Observe closely. Otoniel Ellis M.D., M.S.P.H. Neurologist & Clinical Neurophysiologist Otoniel Ellis MD Feb 25, 2020 16:02
--- NOTE | 2020-02-25 17:45 | Consultation ---
DATE OF CONSULTATION: 02/25/2020 GASTROENTEROLOGY CONSULTATION CONSULTING PHYSICIAN: Lilly Au MD REFERRING PHYSICIAN: Juan Snow MD CHIEF COMPLAINT: I was asked to see this patient by Dr. Juan Snow for gastrostomy tube placement. HISTORY OF PRESENT ILLNESS: The patient is a debilitated and unfortunate 49-year-old woman with multiple medical problems, who has been admitted to the intensive care unit in the state of shock and respiratory failure. Despite multiple efforts, it has been not possible to wean her. She is unable to provide any history. Most of the information is only available from the chart. The patient has been currently fed by nasogastric tube. PAST MEDICAL HISTORY: History of neurofibromatosis, pulmonary hypertension, seizures, deafness, respiratory failure, anasarca, anemia, and abnormal liver tests. FAMILY HISTORY: Noncontributory. SOCIAL HISTORY: The patient has a supportive family who look after her affairs. ALLERGIES: Penicillin and seafood. REVIEW OF SYSTEMS: Otherwise unobtainable. PHYSICAL EXAMINATION: GENERAL: A debilitated woman, seen in the ICU, on a ventilator. HEENT: Normocephalic, atraumatic. Endotracheal tube is in place . NECK: Supple. CHEST: Revealed coarse breath sounds. CARDIAC: Revealed regular rate. ABDOMEN: Soft. EXTREMITIES: Revealed edema in all 4 extremities as well as trunk. LABORATORY DATA: Noted. ASSESSMENT: This patient presents with respiratory failure and she is unable to wean off the ventilator. She will require tracheostomy tube gastrostomy tube will also be inserted. This can be scheduled shortly. In addition, she has abnormal liver tests of unclear etiology. These may be byproduct of her cardiac enzymes since she has had a recent myocardial infarction. Alternatively, hepatitis B and C can be ruled out. These will be done based on laboratory orders. RECOMMENDATIONS: Per above discussion and per orders written in the chart. Thank you for asking me to participate in the care of this patient. Lilly Au M.D. DR: JOSH JOB#: [id number] CC:
[2020-02-25] MEDS ORDERED: Tubing IV Secondary IV ONE (17:53)
[2020-02-25] MEDS ORDERED: NS 275ml ONE (17:53)
[2020-02-26] VITALS (25 sets, daily range): BP systolic 91–140; BP diastolic 50–82
[2020-02-26] MEDS: Metoclopramide 10mg/2ml Inj IVP SCH ×4 (01:17→18:11)
--- NOTE | 2020-02-26 01:47 | Cardiology Progress Note ---
Subjective DATE OF SERVICE: Feb 25, 2020 On vent support - 30% FIO2; not weaning; plans for trach noted. BP remains stable range No new fever spikes. Per neuro, no seizure activity noted, but remains unresponsive Monitor: sinus tachycardia and sinus rhythm Troponin levels trending down. CXR (02/24/20) worsening infiltrates, edema, and effusions. Objective Last 24 Hour Vital Signs Date Time Temp Pulse Resp B/P (MAP) Pulse Ox O2 Delivery O2 Flow Rate FiO2 02/26/20 01:06 85 16 30 02/26/20 01:00 75 15 96/58 (71) 100 02/26/20 00:00 Mechanical Ventilator 02/26/20 00:00 76 02/26/20 00:00 98.5 89 17 113/66 (82) 100 02/25/20 23:07 74 15 30 02/25/20 23:00 76 15 94/51 (65) 100 02/25/20 22:00 90 18 109/66 (80) 100 02/25/20 21:08 88 132/82 02/25/20 21:06 88 18 30 02/25/20 21:00 87 14 132/82 (99) 100 02/25/20 20:00 99.1 75 15 97/53 (68) 100 02/25/20 20:00 30 02/25/20 20:00 83 02/25/20 20:00 Mechanical Ventilator 02/25/20 19:00 86 16 118/67 (84) 100 02/25/20 18:40 89 19 30 02/25/20 18:00 83 16 133/79 (97) 100 02/25/20 17:11 82 17 30 02/25/20 17:00 89 16 132/67 (88) 100 02/25/20 16:00 82 02/25/20 16:00 Mechanical Ventilator 02/25/20 16:00 30 02/25/20 16:00 98.2 85 16 131/81 (98) 100 02/25/20 15:00 82 17 30 02/25/20 15:00 72 16 98/57 (71) 100 02/25/20 14:00 70 16 102/62 (75) 100 02/25/20 13:13 72 15 30 02/25/20 13:00 77 16 112/66 (81) 100 8/29/20 12:00 30 02/25/20 12:00 98.3 79 16 102/66 (78) 99 02/25/20 12:00 Mechanical Ventilator 02/25/20 12:00 83 02/25/20 11:00 81 16 101/59 (73) 100 02/25/20 10:57 81 17 30 02/25/20 10:00 73 16 95/56 (69) 100 02/25/20 09:08 84 17 30 02/25/20 09:00 78 16 99/59 (72) 100 02/25/20 08:46 79 99/59 02/25/20 08:00 98.2 84 16 117/79 (92) 100 02/25/20 08:00 Mechanical Ventilator 02/25/20 08:00 30 02/25/20 08:00 84 02/25/20 07:06 75 17 30 02/25/20 07:00 80 16 114/72 (86) 100 02/25/20 06:30 82 16 02/25/20 06:00 84 17 108/76 (87) 100 02/25/20 05:41 82 17 30 02/25/20 05:00 81 17 113/75 (88) 100 02/25/20 04:00 Mechanical Ventilator 02/25/20 04:00 30 02/25/20 04:00 80 02/25/20 04:00 97.9 85 18 107/71 (83) 02/25/20 03:00 83 17 112/79 (90) 100 02/25/20 02:52 82 19 30 02/25/20 02:00 80 16 118/79 (92) 100 ROS: no change from my evaluation on 02/14/20 HEENT: Orally intubated RHYTHM: ST LUNGS: bilateral rhonchi CARDIAC: normal rate, regular rhythm, normal S1 and S2 ABDOMEN: normal bowel sounds, non tender, soft EXTREMITIES: non-tender, trace edema Laboratory Tests Test 02/25/20 04:35 White Blood Count 9.7 K/UL (4.8-10.8) Red Blood Count 3.36 M/UL (4.20-5.40) L Hemoglobin 10.5 G/DL (12.0-16.0) L Hematocrit 31.8 % (37.0-47.0) L Mean Corpuscular Volume 95 FL (80-99) Mean Corpuscular Hemoglobin 31.2 PG (27.0-31.0) H Mean Corpuscular Hemoglobin Concent 32.9 G/DL (32.0-36.0) Red Cell Distribution Width 12.5 % (11.6-14.8) Platelet Count 412 K/UL (150-450) Mean Platelet Volume 7.5 FL (6.5-10.1) Neutrophils (%) (Auto) % (45.0-75.0) Lymphocytes (%) (Auto) % (20.0-45.0) Monocytes (%) (Auto) % (1.0-10.0) Eosinophils (%) (Auto) % (0.0-3.0) Basophils (%) (Auto) % (0.0-2.0) Differential Total Cells Counted 100 Neutrophils % (Manual) 79 % (45-75) H Lymphocytes % (Manual) 15 % (20-45) L Monocytes % (Manual) 6 % (1-10) Eosinophils % (Manual) 0 % (0-3) Basophils % (Manual) 0 % (0-2) Band Neutrophils 0 % (0-8) Nucleated Red Blood Cells 10 /100 WBC Platelet Estimate Adequate Platelet Morphology Normal Hypochromasia 1+ Anisocytosis 1+ Erythrocyte Sedimentation Rate 65 MM/HR (0-20) H Activated Partial Thromboplast Time 31 SEC (23-33) Sodium Level 136 MMOL/L (136-145) Potassium Level 4.3 MMOL/L (3.5-5.1) Chloride Level 106 MMOL/L (98-107) Carbon Dioxide Level 19 MMOL/L (21-32) L Anion Gap 11 mmol/L (5-15) Blood Urea Nitrogen 42 mg/dL (7-18) H Creatinine 1.3 MG/DL (0.55-1.30) Estimat Glomerular Filtration Rate 52.8 mL/min (>60) Glucose Level 137 MG/DL (74-106) H Calcium Level 8.4 MG/DL (8.5-10.1) L Total Bilirubin 0.3 MG/DL (0.2-1.0) Aspartate Amino Transf (AST/SGOT) 46 U/L (15-37) H Alanine Aminotransferase (ALT/SGPT) 57 U/L (12-78) Alkaline Phosphatase 173 U/L (46-116) H C-Reactive Protein, Quantitative 3.9 mg/dL (0.00-0.90) H Total Protein 6.4 G/DL (6.4-8.2) Albumin 1.8 G/DL (3.4-5.0) L Globulin 4.6 g/dL Albumin/Globulin Ratio 0.4 (1.0-2.7) L Amylase Level 33 U/L (25-115) Lipase 62 U/L (73-393) L CHEST XRAY: CXR (02/24) bibasilar infiltr with small effn's (L>R) Assessment/Plan Assessment/Plan Respiratory Failure UTI Sepsis with shock Acute myocardial infarction (NSTE) Neurofibromatosis with edema Hypokalemia Hypomagnesemia Hypovolemia Pulmonary Hypertension Aspiration PNA Seizure Disorder Pleural effusions Vent support Anti-sz meds Steroids on board - taper per neuro anti-plt rx and anticoagulation on hold for trach and subseq PEG. Beta blockade Antimicrobials and resp rx Nutritional suppl Marcus aMin MD Feb 26, 2020 01:47
[2020-02-26] MEDS ORDERED: NS 250 ML IVPB ONE (08:00)
[2020-02-26] MEDS: Lacri-Lube Opth Oint 3.5gm BOTH EYES SCH ×3 (08:54→17:29)
[2020-02-26] MEDS: levETIRAcetam 1,000mg/NS100ml 100 ML IVPB SCH ×2 (08:55→20:13)
[2020-02-26] MEDS: Cefepime HCl 2 GM in D5W 55 ML IVPB SCH (08:56)
[2020-02-26] MEDS: carBAMazepine 200mg tab NG SCH ×3 (08:57→17:29)
[2020-02-26] MEDS: Revatio 20mg tab ORAL SCH ×3 (08:58→17:30)
[2020-02-26] MEDS: OPSUMIT 10 MG ORAL SCH (08:58)
[2020-02-26] MEDS: SELEXIPAG ORAL SCH ×3 (08:58→17:30)
--- NOTE | 2020-02-26 10:05 | Infectious Diseases Prog Note ---
Assessment/Plan Assessment/Plan A 1. Acinetobacter pneumonia treated COVID19 X2: negative 2. Hypoxic respiratory failure 3. neurofibromatosis 4. seizures 5. pulmonary hypertension 6. Sepsis 7. Non ST elevation PR 8. Coma 9. Deaf & blind P 1. Discontinue cefepime 2. Case was D/W RN Subjective ROS Limited/Unobtainable: Yes Constitutional: Denies: fever Allergies: Coded Allergies: PENICILLINS (Verified Allergy, Severe, 08/07/12) FISH CONTAINING PRODUCTS (Verified Allergy, Unknown, 06/02/18) Uncoded Allergies: seafood (Allergy, Unknown, 06/02/18) Objective Last 24 Hour Vital Signs Date Time Temp Pulse Resp B/P (MAP) Pulse Ox O2 Delivery O2 Flow Rate FiO2 02/26/20 09:00 88 12 122/82 (95) 100 02/26/20 08:57 76 91/59 02/26/20 08:00 97.0 76 12 91/59 (70) 100 02/26/20 08:00 30 02/26/20 08:00 Mechanical Ventilator 02/26/20 07:26 79 16 30 02/26/20 07:00 91 15 111/76 (88) 100 02/26/20 06:30 84 14 02/26/20 06:00 84 17 127/79 (95) 100 02/26/20 05:01 80 13 30 02/26/20 05:00 84 13 97/61 (73) 100 02/26/20 04:00 Mechanical Ventilator 02/26/20 04:00 85 02/26/20 04:00 30 02/26/20 04:00 97.9 88 14 125/71 (89) 100 02/26/20 03:08 82 14 30 02/26/20 03:00 86 17 140/81 (100) 96 02/26/20 02:00 86 16 130/80 (97) 99 02/26/20 01:06 85 16 30 02/26/20 01:00 75 15 96/58 (71) 100 02/26/20 00:00 Mechanical Ventilator 02/26/20 00:00 76 02/26/20 00:00 98.5 89 17 113/66 (82) 100 02/25/20 23:07 74 15 30 02/25/20 23:00 76 15 94/51 (65) 100 02/25/20 22:00 90 18 109/66 (80) 100 02/25/20 21:08 88 132/82 02/25/20 21:06 88 18 30 02/25/20 21:00 87 14 132/82 (99) 100 02/25/20 20:00 99.1 75 15 97/53 (68) 100 02/25/20 20:00 30 02/25/20 20:00 83 02/25/20 20:00 Mechanical Ventilator 02/25/20 19:00 86 16 118/67 (84) 100 02/25/20 18:40 89 19 30 02/25/20 18:00 83 16 133/79 (97) 100 02/25/20 17:11 82 17 30 02/25/20 17:00 89 16 132/67 (88) 100 02/25/20 16:00 82 02/25/20 16:00 Mechanical Ventilator 02/25/20 16:00 30 02/25/20 16:00 98.2 85 16 131/81 (98) 100 02/25/20 15:00 82 17 30 02/25/20 15:00 72 16 98/57 (71) 100 02/25/20 14:00 70 16 102/62 (75) 100 02/25/20 13:13 72 15 30 02/25/20 13:00 77 16 112/66 (81) 100 02/25/20 12:00 30 02/25/20 12:00 98.3 79 16 102/66 (78) 99 02/25/20 12:00 Mechanical Ventilator 02/25/20 12:00 83 02/25/20 11:00 81 16 101/59 (73) 100 02/25/20 10:57 81 17 30 Height (Feet): 5 Height (Inches): 5.00 Weight (Pounds): 146 HEENT: other - orally intubated Respiratory/Chest: lungs clear, other - on ventilator Cardiovascular: normal rate Abdomen: soft, non tender, other - NG tube feeding Extremities: other - edema more in hands Neurologic/Psychiatric: unresponsiveness Current Medications Medications (Trade) Dose Ordered Sig/Brian Route PRN Reason Start Time Stop Time Status Last Admin Dose Admin Acetaminophen (Tylenol) 650 mg Q4H PRN NG Mild Pain (Pain Scale 1-3) 02/14/20 03:00 03/15/20 02:59 02/17/20 05:28 Acetaminophen (Tylenol) 650 mg Q4H PRN NG Temp >100.5 02/14/20 03:00 03/15/20 02:59 02/19/20 21:04 Al Hydroxide/Mg Hydroxide (Mylanta) 30 ml Q4H PRN ORAL Dyspepsia 02/14/20 03:00 03/15/20 02:59 Artificial Tears (Lacri-Lube) 1 applic TID BOTH EYES 02/18/20 09:00 03/18/20 09:29 02/26/20 08:54 Carbamazepine (TEGretol) 200 mg TID NG 02/14/20 09:00 03/15/20 08:59 02/26/20 08:57 Cefepime HCl 2 gm/ Dextrose 55 ml @ 110 mls/hr EVERY 12 HOURS IVPB 02/22/20 12:00 02/29/20 11:59 02/26/20 08:56 Dexamethasone Sodium Phosphate (Decadron 4mg/ml vial) 4 mg EVERY 8 HOURS IVP 02/21/20 22:00 02/26/20 14:01 02/26/20 05:28 Furosemide (Lasix) 40 mg DAILY IV 02/24/20 22:15 03/25/20 22:14 02/26/20 08:55 Gabapentin (Neurontin) 100 mg THREE TIMES A DAY ORAL 02/14/20 09:00 03/15/20 08:59 02/26/20 08:57 Lansoprazole (Prevacid) 30 mg DAILY NG 02/14/20 09:00 03/15/20 08:59 02/26/20 08:56 Levetiracetam 100 ml @ 400 mls/hr Q12HR IVPB 02/19/20 09:00 05/19/20 08:59 02/26/20 08:55 Metoclopramide HCl (Reglan) 5 mg Q6H IVP 02/25/20 13:00 03/26/20 12:59 02/26/20 06:17 Metoclopramide HCl (Reglan) 5 mg Q6H PRN IVP Nausea & Vomiting 02/19/20 08:15 03/20/20 08:14 02/25/20 05:09 Metoprolol Tartrate (Lopressor) 25 mg Q12HR ORAL 02/15/20 21:00 05/15/20 20:59 02/25/20 21:08 Patient Own Medication (Patient's Own Med) 1 ea DAILY ORAL 02/14/20 13:00 03/15/20 12:59 02/23/20 09:23 Patient Own Medication (Patient's Own Med) 1 ea TID ORAL 02/14/20 13:00 03/15/20 12:59 02/26/20 08:58 Sildenafil Citrate (Revatio) 20 mg TID ORAL 02/14/20 09:00 05/14/20 08:59 02/26/20 08:58 Guillaume Hernandez MD Feb 26, 2020 10:05
--- NOTE | 2020-02-26 11:01 | Critical Care Progress Note ---
Assessment/Plan Assessment/Plan respiratory failure pneumonia improved by CXR pulmonary hypertension elevated troponin possible NSTEMI paraplegia hypoxemia seizure history brain masses, chronic moderate PCM PLAN care noted- with family; trach and peg IV antibiotics noted adjusted ETT respiratory care and nursing care noted Ventilatory support on- trying to wean daily mental status remains poor and not improved monitor acid base and adjust supportive care suction as needed monitor heart rate seizure meds- as is oxygen therapy prognosis same nutrition off load and monitor skin update family and call consultants will need subacute care when stable and trach and GT in medications/laboratory data/nursing notes/ICU care reviewed in detail note reviewed and edited care discussed with RN and RT ICU time spent >40 minutes Critical Care - Subjective Interval Events: care noted in ICU on vent plan to get trach in am and GT thereafter family aware ROS Limited/Unobtainable: Yes Condition: critical EKG Rhythm: Sinus Rhythm Residuals: minimal Tube Feeding Tolerated: yes I&O: Intake and Output 02/25/20 02/26/20 19:00 07:00 Intake Total 295 ml 435 ml Output Total 540 ml 425 ml Balance -245 ml 10 ml Free Water 120 ml 30 ml IV Total 155 ml Tube Feeding 175 ml 250 ml Output Urine Total 540 ml 425 ml Critical Care - Objective ET-Tube: 7.0 ET Position: 25 Last 24 Hour Vital Signs Date Time Temp Pulse Resp B/P (MAP) Pulse Ox O2 Delivery O2 Flow Rate FiO2 02/26/20 10:00 74 12 105/65 (78) 100 02/26/20 09:00 88 12 122/82 (95) 100 02/26/20 08:57 76 91/59 02/26/20 08:00 97.0 76 12 91/59 (70) 100 02/26/20 08:00 30 02/26/20 08:00 Mechanical Ventilator 02/26/20 07:26 79 16 30 02/26/20 07:00 91 15 111/76 (88) 100 02/26/20 06:30 84 14 02/26/20 06:00 84 17 127/79 (95) 100 02/26/20 05:01 80 13 30 02/26/20 05:00 84 13 97/61 (73) 100 02/26/20 04:00 Mechanical Ventilator 02/26/20 04:00 85 02/26/20 04:00 30 02/26/20 04:00 97.9 88 14 125/71 (89) 100 02/26/20 03:08 82 14 30 02/26/20 03:00 86 17 140/81 (100) 96 02/26/20 02:00 86 16 130/80 (97) 99 02/26/20 01:06 85 16 30 02/26/20 01:00 75 15 96/58 (71) 100 02/26/20 00:00 Mechanical Ventilator 02/26/20 00:00 76 02/26/20 00:00 98.5 89 17 113/66 (82) 100 02/25/20 23:07 74 15 30 02/25/20 23:00 76 15 94/51 (65) 100 02/25/20 22:00 90 18 109/66 (80) 100 02/25/20 21:08 88 132/82 02/25/20 21:06 88 18 30 02/25/20 21:00 87 14 132/82 (99) 100 02/25/20 20:00 99.1 75 15 97/53 (68) 100 02/25/20 20:00 30 02/25/20 20:00 83 02/25/20 20:00 Mechanical Ventilator 02/25/20 19:00 86 16 118/67 (84) 100 02/25/20 18:40 89 19 30 02/25/20 18:00 83 16 133/79 (97) 100 02/25/20 17:11 82 17 30 02/25/20 17:00 89 16 132/67 (88) 100 02/25/20 16:00 82 02/25/20 16:00 Mechanical Ventilator 02/25/20 16:00 30 02/25/20 16:00 98.2 85 16 131/81 (98) 100 02/25/20 15:00 82 17 30 02/25/20 15:00 72 16 98/57 (71) 100 02/25/20 14:00 70 16 102/62 (75) 100 02/25/20 13:13 72 15 30 02/25/20 13:00 77 16 112/66 (81) 100 02/25/20 12:00 30 02/25/20 12:00 98.3 79 16 102/66 (78) 99 02/25/20 12:00 Mechanical Ventilator 02/25/20 12:00 83 02/25/20 11:00 81 16 101/59 (73) 100 Labs: Labs Test 02/24/20 03:50 02/24/20 08:44 02/24/20 15:10 02/25/20 04:35 White Blood Count 10.7 K/UL (4.8-10.8) 9.7 K/UL (4.8-10.8) Red Blood Count 3.06 M/UL (4.20-5.40) 3.36 M/UL (4.20-5.40) Hemoglobin 9.5 G/DL (12.0-16.0) 10.5 G/DL (12.0-16.0) Hematocrit 29.6 % (37.0-47.0) 31.8 % (37.0-47.0) Mean Corpuscular Volume 97 FL (80-99) 95 FL (80-99) Mean Corpuscular Hemoglobin 31.0 PG (27.0-31.0) 31.2 PG (27.0-31.0) Mean Corpuscular Hemoglobin Concent 32.1 G/DL (32.0-36.0) 32.9 G/DL (32.0-36.0) Red Cell Distribution Width 12.5 % (11.6-14.8) 12.5 % (11.6-14.8) Platelet Count 349 K/UL (150-450) 412 K/UL (150-450) Mean Platelet Volume 7.5 FL (6.5-10.1) 7.5 FL (6.5-10.1) Neutrophils (%) (Auto) % (45.0-75.0) % (45.0-75.0) Lymphocytes (%) (Auto) % (20.0-45.0) % (20.0-45.0) Monocytes (%) (Auto) % (1.0-10.0) % (1.0-10.0) Eosinophils (%) (Auto) % (0.0-3.0) % (0.0-3.0) Basophils (%) (Auto) % (0.0-2.0) % (0.0-2.0) Sodium Level 139 MMOL/L (136-145) 136 MMOL/L (136-145) Potassium Level 5.1 MMOL/L (3.5-5.1) 4.3 MMOL/L (3.5-5.1) Chloride Level 109 MMOL/L (98-107) 106 MMOL/L (98-107) Carbon Dioxide Level 18 MMOL/L (21-32) 19 MMOL/L (21-32) Anion Gap 12 mmol/L (5-15) 11 mmol/L (5-15) Blood Urea Nitrogen 37 mg/dL (7-18) 42 mg/dL (7-18) Creatinine 1.2 MG/DL (0.55-1.30) 1.3 MG/DL (0.55-1.30) Estimat Glomerular Filtration Rate 57.9 mL/min (>60) 52.8 mL/min (>60) Glucose Level 134 MG/DL (74-106) 137 MG/DL (74-106) Calcium Level 8.4 MG/DL (8.5-10.1) 8.4 MG/DL (8.5-10.1) Magnesium Level 2.0 MG/DL (1.8-2.4) Total Bilirubin 0.5 MG/DL (0.2-1.0) 0.3 MG/DL (0.2-1.0) Aspartate Amino Transf (AST/SGOT) 47 U/L (15-37) 46 U/L (15-37) Alanine Aminotransferase (ALT/SGPT) 56 U/L (12-78) 57 U/L (12-78) Alkaline Phosphatase 164 U/L (46-116) 173 U/L (46-116) Troponin I 0.111 ng/mL (0.000-0.056) Pro-B-Type Natriuretic Peptide 70854 pg/mL (0-125) Total Protein 6.2 G/DL (6.4-8.2) 6.4 G/DL (6.4-8.2) Albumin 1.5 G/DL (3.4-5.0) 1.8 G/DL (3.4-5.0) Globulin 4.7 g/dL 4.6 g/dL Albumin/Globulin Ratio 0.3 (1.0-2.7) 0.4 (1.0-2.7) Arterial Blood pH 7.355 (7.350-7.450) Arterial Blood Partial Pressure CO2 35.0 mmHg (35.0-45.0) Arterial Blood Partial Pressure O2 66.3 mmHg (75.0-100.0) Arterial Blood HCO3 19.1 mmol/L (22.0-26.0) Arterial Blood Oxygen Saturation 90.6 % (95-100) Arterial Blood Base Excess -5.7 (-2-2) Jax Test Positive Activated Partial Thromboplast Time 31 SEC (23-33) 31 SEC (23-33) Differential Total Cells Counted 100 Neutrophils % (Manual) 79 % (45-75) Lymphocytes % (Manual) 15 % (20-45) Monocytes % (Manual) 6 % (1-10) Eosinophils % (Manual) 0 % (0-3) Basophils % (Manual) 0 % (0-2) Band Neutrophils 0 % (0-8) Nucleated Red Blood Cells 10 /100 WBC Platelet Estimate Adequate Platelet Morphology Normal Hypochromasia 1+ Anisocytosis 1+ Erythrocyte Sedimentation Rate 65 MM/HR (0-20) C-Reactive Protein, Quantitative 3.9 mg/dL (0.00-0.90) Amylase Level 33 U/L (25-115) Lipase 62 U/L (73-393) Objective: WDWN NAD on vent reduced breath sounds bilaterally without rhonchi or wheeze [id number] without MRG NABS nontender no HSM no CCE nonfocal poor LOC reduced ROM skin noted reviewed and edited feeding tube in place Juan Snow MD Feb 26, 2020 11:01
--- NOTE | 2020-02-26 12:33 | General Progress Note ---
Assessment/Plan Problem List: (1) Seizure disorder ICD Codes: G40.909 - Epilepsy, unspecified, not intractable,without status epilepticus SNOMED: 300708644 (2) Pulmonary hypertension ICD Codes: I27.20 - Pulmonary hypertension, unspecified SNOMED: 40044823 (3) Respiratory failure ICD Codes: J96.90 - Respiratory failure, unspecified, unspecified whether with hypoxia or hypercapnia SNOMED: 085731603 Qualifiers: Qualified Codes: J96.01 - Acute respiratory failure with hypoxia (4) Severe sepsis ICD Codes: A41.9 - Sepsis, unspecified organism; R65.20 - Severe sepsis without septic shock SNOMED: 99298788 (5) NSTEMI (non-ST elevated myocardial infarction) ICD Codes: I21.4 - Non-ST elevation (NSTEMI) myocardial infarction SNOMED: 75305035 (6) Fever ICD Codes: R50.9 - Fever, unspecified SNOMED: 222157066 (7) Dyspnea ICD Codes: R06.00 - Dyspnea, unspecified SNOMED: 842897332 Assessment/Plan: cont vent support resp care wean as able trach and gt per pulm iv steroids per neuro sz rx monitor for szs neuro checks tube feeds reglan for high residuals eliquis pulm htn meds per pulm remains guarded Subjective ROS Limited/Unobtainable: Yes Constitutional: Reports: malaise, weakness HEENT: Reports: no symptoms Cardiovascular: Reports: no symptoms Respiratory: Reports: shortness of breath, sputum Gastrointestinal/Abdominal: Reports: difficulty swallowing Genitourinary: Reports: no symptoms Neurologic/Psychiatric: Reports: pre-existing deficit, seizure Endocrine: Reports: no symptoms Hematologic/Lymphatic: Reports: anemia Allergies: Coded Allergies: PENICILLINS (Verified Allergy, Severe, 08/07/12) FISH CONTAINING PRODUCTS (Verified Allergy, Unknown, 06/02/18) Uncoded Allergies: seafood (Allergy, Unknown, 06/02/18) All Systems: reviewed and negative except above Subjective No overnight events. Slightly more alert. Opens eyes spontaneously. Does not follow commands. Unable to wean. Tolerating feeds. No reports of any seizures. Objective Last 24 Hour Vital Signs Date Time Temp Pulse Resp B/P (MAP) Pulse Ox O2 Delivery O2 Flow Rate FiO2 02/26/20 11:24 79 15 30 02/26/20 11:00 79 12 132/74 (93) 100 02/26/20 10:00 74 12 105/65 (78) 100 02/26/20 09:00 88 12 122/82 (95) 100 02/26/20 08:57 76 91/59 02/26/20 08:00 97.0 76 12 91/59 (70) 100 02/26/20 08:00 80 02/26/20 08:00 30 02/26/20 08:00 Mechanical Ventilator 02/26/20 07:26 79 16 30 02/26/20 07:00 91 15 111/76 (88) 100 02/26/20 06:30 84 14 02/26/20 06:00 84 17 127/79 (95) 100 02/26/20 05:01 80 13 30 02/26/20 05:00 84 13 97/61 (73) 100 02/26/20 04:00 Mechanical Ventilator 02/26/20 04:00 85 02/26/20 04:00 30 02/26/20 04:00 97.9 88 14 125/71 (89) 100 02/26/20 03:08 82 14 30 02/26/20 03:00 86 17 140/81 (100) 96 02/26/20 02:00 86 16 130/80 (97) 99 02/26/20 01:06 85 16 30 02/26/20 01:00 75 15 96/58 (71) 100 02/26/20 00:00 Mechanical Ventilator 02/26/20 00:00 76 02/26/20 00:00 98.5 89 17 113/66 (82) 100 02/25/20 23:07 74 15 30 02/25/20 23:00 76 15 94/51 (65) 100 02/25/20 22:00 90 18 109/66 (80) 100 02/25/20 21:08 88 132/82 02/25/20 21:06 88 18 30 02/25/20 21:00 87 14 132/82 (99) 100 02/25/20 20:00 99.1 75 15 97/53 (68) 100 02/25/20 20:00 30 02/25/20 20:00 83 02/25/20 20:00 Mechanical Ventilator 02/25/20 19:00 86 16 118/67 (84) 100 02/25/20 18:40 89 19 30 02/25/20 18:00 83 16 133/79 (97) 100 02/25/20 17:11 82 17 30 02/25/20 17:00 89 16 132/67 (88) 100 02/25/20 16:00 82 02/25/20 16:00 Mechanical Ventilator 02/25/20 16:00 30 02/25/20 16:00 98.2 85 16 131/81 (98) 100 02/25/20 15:00 82 17 30 02/25/20 15:00 72 16 98/57 (71) 100 02/25/20 14:00 70 16 102/62 (75) 100 02/25/20 13:13 72 15 30 02/25/20 13:00 77 16 112/66 (81) 100 Intake and Output 02/25/20 02/26/20 19:00 07:00 Intake Total 295 ml 435 ml Output Total 540 ml 425 ml Balance -245 ml 10 ml Free Water 120 ml 30 ml IV Total 155 ml Tube Feeding 175 ml 250 ml Output Urine Total 540 ml 425 ml Height (Feet): 5 Height (Inches): 5.00 Weight (Pounds): 146 Objective General Appearance: WD/WN, confused EENT: PERRL/EOMI, normal ENT inspection Neck: non-tender, normal alignment Cardiovascular: normal peripheral pulses, normal rate Respiratory/Chest: chest wall non-tender, lungs clear, normal breath sounds Abdomen: normal bowel sounds, non tender Edema: no edema noted Arm (L), no edema noted Arm (R) Neurologic: disoriented, unresponsive Skin: normal pigmentation Lymphatic: normal anterior cervical (L), normal anterior cervical (R) Liborio Dugan MD Feb 26, 2020 12:33
[2020-02-26] MEDS ORDERED: Lidocaine 1% Plain 30 ml INJ PRN (12:45)
[2020-02-26] MEDS ORDERED: Heparin1,000 units/500ml Premix(Conc:2 units/ml) IV PRN (12:45)
--- NOTE | 2020-02-26 13:11 | Surgery Progress Note ---
Surgery Progress Note Subjective Additional Comments plan trach tomorrow hold blood thinners Objective Last 24 Hour Vital Signs Date Time Temp Pulse Resp B/P (MAP) Pulse Ox O2 Delivery O2 Flow Rate FiO2 02/26/20 12:00 82 13 133/79 (97) 100 02/26/20 12:00 82 02/26/20 11:24 79 15 30 02/26/20 11:00 79 12 132/74 (93) 100 02/26/20 10:00 74 12 105/65 (78) 100 02/26/20 09:00 88 12 122/82 (95) 100 02/26/20 08:57 76 91/59 02/26/20 08:00 97.0 76 12 91/59 (70) 100 02/26/20 08:00 80 02/26/20 08:00 30 02/26/20 08:00 Mechanical Ventilator 02/26/20 07:26 79 16 30 02/26/20 07:00 91 15 111/76 (88) 100 02/26/20 06:30 84 14 02/26/20 06:00 84 17 127/79 (95) 100 02/26/20 05:01 80 13 30 02/26/20 05:00 84 13 97/61 (73) 100 02/26/20 04:00 Mechanical Ventilator 02/26/20 04:00 85 02/26/20 04:00 30 02/26/20 04:00 97.9 88 14 125/71 (89) 100 02/26/20 03:08 82 14 30 02/26/20 03:00 86 17 140/81 (100) 96 02/26/20 02:00 86 16 130/80 (97) 99 02/26/20 01:06 85 16 30 02/26/20 01:00 75 15 96/58 (71) 100 02/26/20 00:00 Mechanical Ventilator 02/26/20 00:00 76 02/26/20 00:00 98.5 89 17 113/66 (82) 100 02/25/20 23:07 74 15 30 02/25/20 23:00 76 15 94/51 (65) 100 02/25/20 22:00 90 18 109/66 (80) 100 02/25/20 21:08 88 132/82 02/25/20 21:06 88 18 30 02/25/20 21:00 87 14 132/82 (99) 100 02/25/20 20:00 99.1 75 15 97/53 (68) 100 02/25/20 20:00 30 02/25/20 20:00 83 02/25/20 20:00 Mechanical Ventilator 02/25/20 19:00 86 16 118/67 (84) 100 02/25/20 18:40 89 19 30 02/25/20 18:00 83 16 133/79 (97) 100 02/25/20 17:11 82 17 30 02/25/20 17:00 89 16 132/67 (88) 100 02/25/20 16:00 82 02/25/20 16:00 Mechanical Ventilator 02/25/20 16:00 30 02/25/20 16:00 98.2 85 16 131/81 (98) 100 02/25/20 15:00 82 17 30 02/25/20 15:00 72 16 98/57 (71) 100 02/25/20 14:00 70 16 102/62 (75) 100 02/25/20 13:13 72 15 30 I&O Intake and Output 02/25/20 02/26/20 19:00 07:00 Intake Total 295 ml 435 ml Output Total 540 ml 425 ml Balance -245 ml 10 ml Free Water 120 ml 30 ml IV Total 155 ml Tube Feeding 175 ml 250 ml Output Urine Total 540 ml 425 ml Dressing: other Wound: other Cardiovascular: RSR Respiratory: decreased breath sounds Abdomen: soft, non-tender, present bowel sounds Extremities: no tenderness, no cyanosis Plan Problems: (1) Respiratory failure Assessment & Plan: Respiratory insufficiency requiring prolonged ventilatory support currently remains on vent support unable to wean safely. Patient with altered level consciousness this time not responsive. Patient is a candidate for a tracheostomy. Pulmonology discussed with the family and they have agreed to proceed. Will optimize and plan for surgical intervention soon. Tracheostomy indicated and recommended. Thank you Lucian horvath patient's care will follow with recommendations Bassam Hui Feb 26, 2020 13:11
--- NOTE | 2020-02-26 14:41 | Neurology Progress Note ---
Interim History Interim History Interim History Ms. Roseann Srinivasan is a 49-year-old, black lady, of unknown handedness, who does have a past history of neurofibromatosis, a seizure disorder, pulmonary hypertension, deafness of an unknown degree, and visual problems of an unknown degree. She was hospitalized on 02/13/2020 for an altered mental state preceded by failure to thrive, fever and possibly shaking chills, and a global decline in function. It was felt that she may have a urinary tract infection. She was intubated and artificially ventilated, started on intravenous fluids, and antibiotics, and was observed in the ICU. She does have a history of seizures but has not been observed to have any seizures during her hospitalization. She continues to be unresponsive. She has been opening and closing her eyes spontaneously. She however has not been able to interact in any manner. There has been no significant change in her medical or neurological condition. It is still unclear as to what exactly her baseline neurological function was prior to this admission. Review of Systems Neuro Review of Systems Unable to obtain. Objective Physical Exam Last Vital Signs Date Time Temp Pulse Resp B/P (MAP) Pulse Ox O2 Delivery O2 Flow Rate FiO2 02/26/20 14:00 88 12 112/67 (82) 100 02/26/20 13:16 30 02/26/20 13:00 97.5 02/26/20 12:00 Mechanical Ventilator Neurologic Exam Objective PHYSICAL EXAMINATION: GENERAL: She is a well-developed, relatively well-nourished, black lady, lying in an intensive care unit bed, connected to ventilator via an endotracheal tube. HEAD: Normocephalic and atraumatic. NECK: No neck rigidity was observed. EENT: Her chemosis was significantly better. SPINE: Cervical, thoracic and lumbosacral spine revealed no tenderness or paraspinal muscle spasm. NEUROLOGIC EXAMINATION: MENTAL STATUS EXAMINATION: She was comatose. She could not be aroused even on applying deep painful stimuli. She only responded to deep pain with minimal nonpurposeful withdrawal in both upper extremities and no response in both lower extremities. Further mental status testing was impossible. SPEECH: Could not be tested. LANGUAGE: Could not be tested. CRANIAL NERVE EXAMINATION: II: She did not blink to threat. III, IV, : External ocular movements were present but restricted on oculocephalic maneuvers. The pupils were 3 mm in diameter equal, round, regular and did not react to light. V & VII: The corneal reflexes were absent bilaterally. However she moved her head when the cornea was stimulated. VIII: She did not respond to sounds and had no nystagmus. IX & X: The gag reflex was absent on manipulating the endotracheal tube. XI: The sternocleidomastoids and trapezii did not function. XII: The tongue could not be examined properly. MOTOR SYSTEM: The tone was diminished in all 4 extremities. Examination of muscle mass revealed generalized muscle wasting. Examination of power was impossible to perform because even on applying deep painful stimuli the only response seen was nonpurposeful withdrawal in both upper extremities. SENSORY EXAMINATION: She only responded to deep pain with nonpurposeful withdrawal in both upper extremities. REFLEXES: 0 at the biceps, triceps, brachioradialis, knees and ankles. The plantar responses were mute bilaterally. COORDINATION, STANCE & GAIT: Not be tested. ABNORMAL MOVEMENTS: None Impression/Recommendations Diagnostic Impression DIAGNOSTIC IMPRESSION: 1. Ms. Roseann Srinivasan is a 49-year-old, black lady, of unknown handedness, who does have a past history of neurofibromatosis, a seizure disorder, pulmonary hypertension, deafness of an unknown degree, and visual problems of an unknown degree. 2. She was hospitalized on 02/13/2020 and altered mental state preceded by failure to thrive, fever and possibly shaking chills, and a global decline in function. It was felt that she may have urinary tract infection. She was intubated and artificially ventilated, started on intravenous fluids, and antibiotics, and was observed in the ICU. 3. She does have a history of seizures but has not been observed to have any seizures during hospitalization. 4. An EEG performed on 02/18/2020 revealed: An encephalopathy of a moderate degree with a toxic metabolic component. Right temporal focal dysfunction. A right temporal epileptogenic focus with phase reversals in the mid temporal region. 5. She continues to be unresponsive. She has been opening and closing her eyes spontaneously. She however has not been able to interact in any manner. There has been no significant change in her medical or neurological condition. It is still unclear as to what exactly her baseline neurological function was prior to this admission. 6. On neurological examination at this time she is comatose and cannot be aroused even on applying deep painful stimuli. She only responds to deep pain with nonpurposeful withdrawal in both upper extremities and no response in both lower extremities. Further mental status testing is impossible. She does have brainstem reflexes in the form of eye movements on oculocephalic maneuvers, and spontaneous ventilations. Her deep tendon reflexes are globally absent and the plantar responses mute. 7. Her latest laboratory data on my initial evaluation revealed an anemia with a hemoglobin of 10.1 g, AST elevated at 49, alkaline phosphate is elevated at 198, proBNP elevated at 11,463, normal PO2 at 83, minimally low PCO2 at 33, normal TSH, and a therapeutic Tegretol level at 10.2. 8. Further laboratory tests have revealed a normal vitamin B12 level, normal folate, ammonia level elevated at 46, and an elevated ESR at 90. 9. The CT scan of the brain without contrast performed on 02/21/2020 revealed "Innumerable bilateral meningiomas, white matter edema of the left cerebellar hemisphere and the right cerebral hemisphere, mass-effect upon the right lateral ventricle with shift of the midline structures from the right to the left, loss of salas-white differentiation, but no acute pathology." The findings are very similar to a scan performed in November 2019. 10. The patient's history, neurological examination, CT scan of the brain and EEG are most consistent with a significant toxic metabolic encephalopathy superimposed on significant structural brain disease but seems to be old. At this point in time it is unknown if the patient may also have acute intracranial pathology as an MRI scan cannot be obtained. 11. With regards to her seizure disorder, the patient has not had any clinical seizures while hospitalized and in addition the EEG also did not reveal any seizures but did reveal interictal phenomena emanating from the right temporal region. Recommendations RECOMMENDATIONS: 1. Continue present management. 2. Continue prehospitalization anticonvulsant regimen. 3. Try to determine the patient's prehospitalization baseline and to when exactly she was able to talk and walk. 4. Observe closely. Otoniel Ellis M.D., M.S.P.H. Neurologist & Clinical Neurophysiologist Otoniel Ellis MD Feb 26, 2020 14:41
--- NOTE | 2020-02-26 15:04 | General Progress Note ---
Assessment/Plan Assessment/Plan: Assessment - Resp failure - NGT dependent - Shock - s/p DE - anasarca - Anemia - abnormal LFT Recommendations - Continue NGT feeds - Vent - Supportive care - Await Trach - PEG to follow at late date Subjective Allergies: Coded Allergies: PENICILLINS (Verified Allergy, Severe, 08/07/12) FISH CONTAINING PRODUCTS (Verified Allergy, Unknown, 06/02/18) Uncoded Allergies: seafood (Allergy, Unknown, 06/02/18) Subjective Above noted d/w COURT REPORTER tolerating TF plans for trach noted Objective Last 24 Hour Vital Signs Date Time Temp Pulse Resp B/P (MAP) Pulse Ox O2 Delivery O2 Flow Rate FiO2 02/26/20 14:00 88 12 112/67 (82) 100 02/26/20 13:16 85 14 30 02/26/20 13:00 97.5 86 12 118/71 (87) 100 02/26/20 12:00 82 13 133/79 (97) 100 02/26/20 12:00 30 02/26/20 12:00 82 02/26/20 12:00 Mechanical Ventilator 02/26/20 11:24 79 15 30 02/26/20 11:00 79 12 132/74 (93) 100 02/26/20 10:00 74 12 105/65 (78) 100 02/26/20 09:01 88 15 30 02/26/20 09:00 88 12 122/82 (95) 100 02/26/20 08:57 76 91/59 02/26/20 08:00 97.0 76 12 91/59 (70) 100 02/26/20 08:00 80 02/26/20 08:00 30 02/26/20 08:00 Mechanical Ventilator 02/26/20 07:26 79 16 30 02/26/20 07:00 91 15 111/76 (88) 100 02/26/20 06:30 84 14 02/26/20 06:00 84 17 127/79 (95) 100 02/26/20 05:01 80 13 30 02/26/20 05:00 84 13 97/61 (73) 100 02/26/20 04:00 Mechanical Ventilator 02/26/20 04:00 85 02/26/20 04:00 30 02/26/20 04:00 97.9 88 14 125/71 (89) 100 02/26/20 03:08 82 14 30 02/26/20 03:00 86 17 140/81 (100) 96 02/26/20 02:00 86 16 130/80 (97) 99 02/26/20 01:06 85 16 30 02/26/20 01:00 75 15 96/58 (71) 100 02/26/20 00:00 Mechanical Ventilator 02/26/20 00:00 76 02/26/20 00:00 98.5 89 17 113/66 (82) 100 02/25/20 23:07 74 15 30 02/25/20 23:00 76 15 94/51 (65) 100 02/25/20 22:00 90 18 109/66 (80) 100 02/25/20 21:08 88 132/82 02/25/20 21:06 88 18 30 02/25/20 21:00 87 14 132/82 (99) 100 02/25/20 20:00 99.1 75 15 97/53 (68) 100 02/25/20 20:00 30 02/25/20 20:00 83 02/25/20 20:00 Mechanical Ventilator 02/25/20 19:00 86 16 118/67 (84) 100 02/25/20 18:40 89 19 30 02/25/20 18:00 83 16 133/79 (97) 100 02/25/20 17:11 82 17 30 02/25/20 17:00 89 16 132/67 (88) 100 02/25/20 16:00 82 02/25/20 16:00 Mechanical Ventilator 02/25/20 16:00 30 02/25/20 16:00 98.2 85 16 131/81 (98) 100 Intake and Output 02/25/20 02/26/20 19:00 07:00 Intake Total 295 ml 435 ml Output Total 540 ml 425 ml Balance -245 ml 10 ml Free Water 120 ml 30 ml IV Total 155 ml Tube Feeding 175 ml 250 ml Output Urine Total 540 ml 425 ml Height (Feet): 5 Height (Inches): 5.00 Weight (Pounds): 146 Objective WDWN AA woman NCAT, (+) ETT and NGT Coarse BS RR abd soft NT ND (++) edema Lilly Au MD Feb 26, 2020 15:04
[2020-02-26 17:19] LABS: HEMATOCRIT 32.8 % (37.0-47.0); HEMOGLOBIN 10.7 G/DL (12.0-16.0); MEAN CORPUSCULAR VOLUME 97 FL (80-99); PLATELET COUNT 431 K/UL (150-450); RED BLOOD COUNT 3.39 M/UL (4.20-5.40); RED CELL DISTRIBUTION WIDTH 13.4 % (11.6-14.8); WHITE BLOOD COUNT 9.2 K/UL (4.8-10.8)
[2020-02-26] MEDS ORDERED: Tubing IV Secondary IV ONE (17:20)
[2020-02-26] MEDS ORDERED: NS 275ml ONE (17:20)
[2020-02-26 17:23] LABS: BASOPHILS % (AUTO) 0.9 % (0.0-2.0); EOSINOPHILS % (AUTO) 0.1 % (0.0-3.0); MONOCYTES % (AUTO) 4.9 % (1.0-10.0); NEUTROPHILS % (AUTO) 88.1 % (45.0-75.0)
[2020-02-26 17:27] LABS: ALANINE AMINOTRANSFERASE 60 U/L (12-78); ALBUMIN 1.9 G/DL (3.4-5.0); ALBUMIN/GLOBULIN RATIO 0.4 (1.0-2.7); ALKALINE PHOSPHATASE 179 U/L (46-116); ANION GAP 10 mmol/L (5-15); ASPARTATE AMINO TRANSFERASE 49 U/L (15-37); BILIRUBIN,TOTAL 0.3 MG/DL (0.2-1.0); BLOOD UREA NITROGEN 41 mg/dL (7-18); CALCIUM 8.6 MG/DL (8.5-10.1); CARBON DIOXIDE 23 MMOL/L (21-32); CHLORIDE 105 MMOL/L (98-107); CREATININE 1.1 MG/DL (0.55-1.30); POTASSIUM 3.6 MMOL/L (3.5-5.1); SODIUM 138 MMOL/L (136-145)
[2020-02-26] MEDS ORDERED: Milk of Magnesia 30ml Ud NG PRN (19:00)
[2020-02-26] MEDS: Dyna-Hex 2% Top Sol 2oz TOPIC SCH (20:05)
--- NOTE | 2020-02-26 23:58 | Cardiology Progress Note ---
Subjective DATE OF SERVICE: Feb 26, 2020 On vent support - 30% FIO2; not weaning; plans for trach noted. BP remains stable range No new fever spikes. Per neuro, no seizure activity noted, but remains unresponsive Monitor: sinus tachycardia and sinus rhythm Troponin levels trending down. CXR (02/24/20) worsening infiltrates, edema, and effusions. Objective Last 24 Hour Vital Signs Date Time Temp Pulse Resp B/P (MAP) Pulse Ox O2 Delivery O2 Flow Rate FiO2 02/26/20 22:42 84 14 30 02/26/20 22:00 89 16 97/58 (71) 100 02/26/20 21:36 91 119/68 02/26/20 21:30 89 15 119/68 (85) 100 02/26/20 21:00 88 16 106/61 (76) 100 02/26/20 20:47 85 17 30 02/26/20 20:00 Mechanical Ventilator 02/26/20 20:00 93 02/26/20 20:00 30 02/26/20 20:00 98.2 84 16 100/50 (67) 100 02/26/20 19:00 91 14 108/58 (75) 100 02/26/20 18:33 92 14 30 02/26/20 18:00 82 14 103/65 (78) 100 02/26/20 17:14 89 19 30 02/26/20 17:00 89 16 115/70 (85) 100 02/26/20 16:00 Mechanical Ventilator 02/26/20 16:00 97.7 86 12 115/66 (82) 100 02/26/20 16:00 30 02/26/20 16:00 82 02/26/20 15:12 87 19 30 02/26/20 15:00 90 14 118/66 (83) 100 02/26/20 14:00 88 12 112/67 (82) 100 02/26/20 13:16 85 14 30 02/26/20 13:00 97.5 86 12 118/71 (87) 100 02/26/20 12:00 82 13 133/79 (97) 100 02/26/20 12:00 30 02/26/20 12:00 82 02/26/20 12:00 Mechanical Ventilator 02/26/20 11:24 79 15 30 02/26/20 11:00 79 12 132/74 (93) 100 02/26/20 10:00 74 12 105/65 (78) 100 02/26/20 09:01 88 15 30 02/26/20 09:00 88 12 122/82 (95) 100 02/26/20 08:57 76 91/59 02/26/20 08:00 97.0 76 12 91/59 (70) 100 02/26/20 08:00 80 02/26/20 08:00 30 02/26/20 08:00 Mechanical Ventilator 02/26/20 07:26 79 16 30 02/26/20 07:00 91 15 111/76 (88) 100 02/26/20 06:30 84 14 02/26/20 06:00 84 17 127/79 (95) 100 02/26/20 05:01 80 13 30 02/26/20 05:00 84 13 97/61 (73) 100 02/26/20 04:00 Mechanical Ventilator 02/26/20 04:00 85 02/26/20 04:00 30 02/26/20 04:00 97.9 88 14 125/71 (89) 100 02/26/20 03:08 82 14 30 02/26/20 03:00 86 17 140/81 (100) 96 02/26/20 02:00 86 16 130/80 (97) 99 02/26/20 01:06 85 16 30 02/26/20 01:00 75 15 96/58 (71) 100 02/26/20 00:00 Mechanical Ventilator 02/26/20 00:00 76 02/26/20 00:00 98.5 89 17 113/66 (82) 100 ROS: no change from my evaluation on 02/14/20 HEENT: Orally intubated RHYTHM: ST LUNGS: bilateral rhonchi CARDIAC: normal rate, regular rhythm, normal S1 and S2 ABDOMEN: normal bowel sounds, non tender, soft EXTREMITIES: non-tender, trace edema Laboratory Tests Test 02/26/20 16:50 White Blood Count 9.2 K/UL (4.8-10.8) Red Blood Count 3.39 M/UL (4.20-5.40) L Hemoglobin 10.7 G/DL (12.0-16.0) L Hematocrit 32.8 % (37.0-47.0) L Mean Corpuscular Volume 97 FL (80-99) Mean Corpuscular Hemoglobin 31.6 PG (27.0-31.0) H Mean Corpuscular Hemoglobin Concent 32.7 G/DL (32.0-36.0) Red Cell Distribution Width 13.4 % (11.6-14.8) Platelet Count 431 K/UL (150-450) Mean Platelet Volume 8.0 FL (6.5-10.1) Neutrophils (%) (Auto) 88.1 % (45.0-75.0) H Lymphocytes (%) (Auto) 6.0 % (20.0-45.0) L Monocytes (%) (Auto) 4.9 % (1.0-10.0) Eosinophils (%) (Auto) 0.1 % (0.0-3.0) Basophils (%) (Auto) 0.9 % (0.0-2.0) Sodium Level 138 MMOL/L (136-145) Potassium Level 3.6 MMOL/L (3.5-5.1) Chloride Level 105 MMOL/L (98-107) Carbon Dioxide Level 23 MMOL/L (21-32) Anion Gap 10 mmol/L (5-15) Blood Urea Nitrogen 41 mg/dL (7-18) H Creatinine 1.1 MG/DL (0.55-1.30) Estimat Glomerular Filtration Rate > 60 mL/min (>60) Glucose Level 143 MG/DL (74-106) H Calcium Level 8.6 MG/DL (8.5-10.1) Total Bilirubin 0.3 MG/DL (0.2-1.0) Aspartate Amino Transf (AST/SGOT) 49 U/L (15-37) H Alanine Aminotransferase (ALT/SGPT) 60 U/L (12-78) Alkaline Phosphatase 179 U/L (46-116) H Total Protein 6.7 G/DL (6.4-8.2) Albumin 1.9 G/DL (3.4-5.0) L Globulin 4.8 g/dL Albumin/Globulin Ratio 0.4 (1.0-2.7) L Assessment/Plan Assessment/Plan Respiratory Failure UTI Sepsis with shock Acute myocardial infarction (NSTE) Neurofibromatosis with edema Hypokalemia Hypomagnesemia Hypovolemia Pulmonary Hypertension Aspiration PNA Seizure Disorder Pleural effusions Vent support Anti-sz meds Steroids discont'd anti-plt rx and anticoagulation on hold for trach and subseq PEG. Beta blockade Antimicrobials and resp rx Nutritional suppl Maintenance IVF added while NPO Marcus Main MD Feb 26, 2020 23:58
[2020-02-27] VITALS (24 sets, daily range): BP systolic 98–140; BP diastolic 57–87
[2020-02-27] MEDS: Metoclopramide 10mg/2ml Inj IVP SCH ×4 (00:39→18:33)
[2020-02-27 04:57] LABS: BASOPHILS % (AUTO) 1.3 % (0.0-2.0); EOSINOPHILS % (AUTO) 0.1 % (0.0-3.0); HEMATOCRIT 31.5 % (37.0-47.0); HEMOGLOBIN 10.5 G/DL (12.0-16.0); LYMPHOCYTES % (AUTO) 10.4 % (20.0-45.0); MEAN CORPUSCULAR VOLUME 94 FL (80-99); MONOCYTES % (AUTO) 7.8 % (1.0-10.0); NEUTROPHILS % (AUTO) 80.4 % (45.0-75.0); PLATELET COUNT 407 K/UL (150-450); RED BLOOD COUNT 3.35 M/UL (4.20-5.40); WHITE BLOOD COUNT 8.2 K/UL (4.8-10.8)
[2020-02-27 05:00] LABS: ANION GAP 7 mmol/L (5-15); BLOOD UREA NITROGEN 39 mg/dL (7-18); CALCIUM 8.3 MG/DL (8.5-10.1); CARBON DIOXIDE 25 MMOL/L (21-32); CHLORIDE 109 MMOL/L (98-107); CREATININE 1.1 MG/DL (0.55-1.30); POTASSIUM 3.6 MMOL/L (3.5-5.1); SODIUM 141 MMOL/L (136-145)
[2020-02-27 05:03] LABS: INR 1.2 (0.9-1.1)
--- NOTE | 2020-02-27 07:12 | General Progress Note ---
Assessment/Plan Problem List: (1) Seizure disorder ICD Codes: G40.909 - Epilepsy, unspecified, not intractable,without status epilepticus SNOMED: 319971887 (2) Pulmonary hypertension ICD Codes: I27.20 - Pulmonary hypertension, unspecified SNOMED: 15778592 (3) Respiratory failure ICD Codes: J96.90 - Respiratory failure, unspecified, unspecified whether with hypoxia or hypercapnia SNOMED: 997057447 Qualifiers: Qualified Codes: J96.01 - Acute respiratory failure with hypoxia (4) Severe sepsis ICD Codes: A41.9 - Sepsis, unspecified organism; R65.20 - Severe sepsis without septic shock SNOMED: 01542004 (5) NSTEMI (non-ST elevated myocardial infarction) ICD Codes: I21.4 - Non-ST elevation (NSTEMI) myocardial infarction SNOMED: 87390606 (6) Fever ICD Codes: R50.9 - Fever, unspecified SNOMED: 215300339 (7) Dyspnea ICD Codes: R06.00 - Dyspnea, unspecified SNOMED: 880187310 Status: stable, not improved Assessment/Plan: cont vent support resp care trach later today iv steroids per neuro sz rx monitor for szs neuro checks tube feeds reglan for high residuals eliquis on hold peg to be scheduled. pulm htn meds per pulm remains guarded Subjective ROS Limited/Unobtainable: Yes Constitutional: Reports: malaise, weakness HEENT: Reports: no symptoms Cardiovascular: Reports: no symptoms Respiratory: Reports: no symptoms Gastrointestinal/Abdominal: Reports: difficulty swallowing Genitourinary: Reports: no symptoms Neurologic/Psychiatric: Reports: pre-existing deficit, seizure Endocrine: Reports: no symptoms Hematologic/Lymphatic: Reports: anemia Allergies: Coded Allergies: PENICILLINS (Verified Allergy, Severe, 08/07/12) FISH CONTAINING PRODUCTS (Verified Allergy, Unknown, 06/02/18) Uncoded Allergies: seafood (Allergy, Unknown, 06/02/18) All Systems: reviewed and negative except above Subjective no change. still poorly responsive. opens eyes when suctioned. no reports of szs. npo for trach today. Objective Last 24 Hour Vital Signs Date Time Temp Pulse Resp B/P (MAP) Pulse Ox O2 Delivery O2 Flow Rate FiO2 02/27/20 07:02 80 16 30 02/27/20 06:30 82 14 02/27/20 06:00 77 13 99/57 (71) 99 02/27/20 05:00 84 15 111/69 (83) 100 02/27/20 04:42 82 16 30 02/27/20 04:00 98.4 79 13 112/64 (80) 100 02/27/20 04:00 Mechanical Ventilator 02/27/20 04:00 81 02/27/20 04:00 30 02/27/20 03:00 80 19 128/74 (92) 100 02/27/20 02:40 83 12 30 02/27/20 02:00 77 14 98/60 (73) 100 02/27/20 01:12 85 15 30 02/27/20 01:00 84 14 116/70 (85) 100 02/27/20 00:00 97.8 84 14 115/70 (85) 100 02/27/20 00:00 30 02/27/20 00:00 Mechanical Ventilator 02/27/20 00:00 87 02/26/20 23:00 83 17 117/66 (83) 100 02/26/20 22:42 84 14 30 02/26/20 22:00 89 16 97/58 (71) 100 02/26/20 21:36 91 119/68 02/26/20 21:30 89 15 119/68 (85) 100 02/26/20 21:00 88 16 106/61 (76) 100 02/26/20 20:47 85 17 30 02/26/20 20:00 Mechanical Ventilator 02/26/20 20:00 93 02/26/20 20:00 30 02/26/20 20:00 98.2 84 16 100/50 (67) 100 02/26/20 19:00 91 14 108/58 (75) 100 02/26/20 18:33 92 14 30 02/26/20 18:00 82 14 103/65 (78) 100 02/26/20 17:14 89 19 30 02/26/20 17:00 89 16 115/70 (85) 100 02/26/20 16:00 Mechanical Ventilator 02/26/20 16:00 97.7 86 12 115/66 (82) 100 02/26/20 16:00 30 02/26/20 16:00 82 02/26/20 15:12 87 19 30 02/26/20 15:00 90 14 118/66 (83) 100 02/26/20 14:00 88 12 112/67 (82) 100 02/26/20 13:16 85 14 30 02/26/20 13:00 97.5 86 12 118/71 (87) 100 02/26/20 12:00 82 13 133/79 (97) 100 02/26/20 12:00 30 02/26/20 12:00 82 02/26/20 12:00 Mechanical Ventilator 02/26/20 11:24 79 15 30 02/26/20 11:00 79 12 132/74 (93) 100 02/26/20 10:00 74 12 105/65 (78) 100 02/26/20 09:01 88 15 30 02/26/20 09:00 88 12 122/82 (95) 100 02/26/20 08:57 76 91/59 02/26/20 08:00 97.0 76 12 91/59 (70) 100 02/26/20 08:00 80 02/26/20 08:00 30 02/26/20 08:00 Mechanical Ventilator 02/26/20 07:26 79 16 30 Intake and Output 02/26/20 02/27/20 19:00 07:00 Intake Total 420 ml 635 ml Output Total 700 ml 1190 ml Balance -280 ml -555 ml Free Water 60 ml IV Total 515 ml Tube Feeding 360 ml 120 ml Output Urine Total 700 ml 1190 ml Laboratory Tests 02/26/20 16:50: White Blood Count 9.2, Red Blood Count 3.39L, Hemoglobin 10.7L, Hematocrit 32.8L , Mean Corpuscular Volume 97, Mean Corpuscular Hemoglobin 31.6H, Mean Corpuscular Hemoglobin Concent 32.7, Red Cell Distribution Width 13.4, Platelet Count 431, Mean Platelet Volume 8.0, Neutrophils (%) (Auto) 88.1H, Lymphocytes ( %) (Auto) 6.0L, Monocytes (%) (Auto) 4.9, Eosinophils (%) (Auto) 0.1, Basophils (%) (Auto) 0.9, Sodium Level 138, Potassium Level 3.6, Chloride Level 105, Carbon Dioxide Level 23, Anion Gap 10, Blood Urea Nitrogen 41H, Creatinine 1.1, Estimat Glomerular Filtration Rate > 60, Glucose Level 143H, Calcium Level 8.6, Total Bilirubin 0.3, Aspartate Amino Transf (AST/SGOT) 49H, Alanine Aminotransferase (ALT/SGPT) 60, Alkaline Phosphatase 179H, Total Protein 6.7, Albumin 1.9L, Globulin 4.8, Albumin/Globulin Ratio 0.4L 02/27/20 04:19: White Blood Count 8.2, Red Blood Count 3.35L, Hemoglobin 10.5L, Hematocrit 31.5L , Mean Corpuscular Volume 94, Mean Corpuscular Hemoglobin 31.4H, Mean Corpuscular Hemoglobin Concent 33.4, Red Cell Distribution Width 12.0, Platelet Count 407, Mean Platelet Volume 7.0, Neutrophils (%) (Auto) 80.4H, Lymphocytes ( %) (Auto) 10.4L, Monocytes (%) (Auto) 7.8, Eosinophils (%) (Auto) 0.1, Basophils (%) (Auto) 1.3, Sodium Level 141, Potassium Level 3.6, Chloride Level 109H, Carbon Dioxide Level 25, Anion Gap 7, Blood Urea Nitrogen 39H, Creatinine 1.1, Estimat Glomerular Filtration Rate > 60, Glucose Level 119H, Calcium Level 8.3L, Prothrombin Time 13.0H, Prothromb Time International Ratio 1.2H, Activated Partial Thromboplast Time 29 Height (Feet): 5 Height (Inches): 5.00 Weight (Pounds): 150 Objective General Appearance: WD/WN, confused EENT: PERRL/EOMI, normal ENT inspection Neck: non-tender, normal alignment Cardiovascular: normal peripheral pulses, normal rate Respiratory/Chest: chest wall non-tender, lungs clear, normal breath sounds Abdomen: normal bowel sounds, non tender Edema: no edema noted Arm (L), no edema noted Arm (R) Neurologic: disoriented, unresponsive Skin: normal pigmentation Lymphatic: normal anterior cervical (L), normal anterior cervical (R) Liborio Dugan MD Feb 27, 2020 07:12
--- NOTE | 2020-02-27 08:18 | Critical Care Progress Note ---
Assessment/Plan Assessment/Plan respiratory failure pneumonia improved by CXR pulmonary hypertension elevated troponin possible NSTEMI paraplegia hypoxemia seizure history brain masses, chronic moderate PCM PLAN care noted- with family; trach and peg IV antibiotics noted imaging noted respiratory care and nursing care noted Ventilatory support on- unable to wean mental status remains poor and not improved monitor acid base and adjust supportive care suction as needed monitor heart rate seizure meds- as is oxygen therapy prognosis same nutrition off load and monitor skin update family will need subacute care when stable and trach and GT in medications/laboratory data/nursing notes/ICU care reviewed in detail note reviewed and edited care discussed with RN and RT ICU time spent >40 minutes Critical Care - Subjective Interval Events: care noted overnight in ICU plan for trach on feeds support noted d/w GI ROS Limited/Unobtainable: Yes Condition: critical EKG Rhythm: Sinus Rhythm Residuals: minimal Tube Feeding Tolerated: yes I&O: Intake and Output 02/26/20 02/27/20 19:00 07:00 Intake Total 420 ml 710 ml Output Total 700 ml 1230 ml Balance -280 ml -520 ml Free Water 60 ml IV Total 590 ml Tube Feeding 360 ml 120 ml Output Urine Total 700 ml 1230 ml Critical Care - Objective ET-Tube: 7.0 ET Position: 25 Last 24 Hour Vital Signs Date Time Temp Pulse Resp B/P (MAP) Pulse Ox O2 Delivery O2 Flow Rate FiO2 02/27/20 08:00 97.5 80 15 136/87 (103) 100 02/27/20 08:00 Mechanical Ventilator 02/27/20 08:00 30 02/27/20 07:48 80 02/27/20 07:02 80 16 30 02/27/20 07:00 81 17 125/71 (89) 100 02/27/20 06:30 82 14 02/27/20 06:00 77 13 99/57 (71) 99 02/27/20 05:00 84 15 111/69 (83) 100 02/27/20 04:42 82 16 30 02/27/20 04:00 98.4 79 13 112/64 (80) 100 02/27/20 04:00 Mechanical Ventilator 02/27/20 04:00 81 02/27/20 04:00 30 02/27/20 03:00 80 19 128/74 (92) 100 02/27/20 02:40 83 12 30 02/27/20 02:00 77 14 98/60 (73) 100 02/27/20 01:12 85 15 30 02/27/20 01:00 84 14 116/70 (85) 100 02/27/20 00:00 97.8 84 14 115/70 (85) 100 02/27/20 00:00 30 02/27/20 00:00 Mechanical Ventilator 02/27/20 00:00 87 02/26/20 23:00 83 17 117/66 (83) 100 02/26/20 22:42 84 14 30 02/26/20 22:00 89 16 97/58 (71) 100 02/26/20 21:36 91 119/68 02/26/20 21:30 89 15 119/68 (85) 100 02/26/20 21:00 88 16 106/61 (76) 100 02/26/20 20:47 85 17 30 02/26/20 20:00 Mechanical Ventilator 02/26/20 20:00 93 02/26/20 20:00 30 02/26/20 20:00 98.2 84 16 100/50 (67) 100 02/26/20 19:00 91 14 108/58 (75) 100 02/26/20 18:33 92 14 30 02/26/20 18:00 82 14 103/65 (78) 100 02/26/20 17:14 89 19 30 02/26/20 17:00 89 16 115/70 (85) 100 02/26/20 16:00 Mechanical Ventilator 02/26/20 16:00 97.7 86 12 115/66 (82) 100 02/26/20 16:00 30 02/26/20 16:00 82 02/26/20 15:12 87 19 30 02/26/20 15:00 90 14 118/66 (83) 100 02/26/20 14:00 88 12 112/67 (82) 100 02/26/20 13:16 85 14 30 02/26/20 13:00 97.5 86 12 118/71 (87) 100 02/26/20 12:00 82 13 133/79 (97) 100 02/26/20 12:00 30 02/26/20 12:00 82 02/26/20 12:00 Mechanical Ventilator 02/26/20 11:24 79 15 30 02/26/20 11:00 79 12 132/74 (93) 100 02/26/20 10:00 74 12 105/65 (78) 100 02/26/20 09:01 88 15 30 02/26/20 09:00 88 12 122/82 (95) 100 02/26/20 08:57 76 91/59 Labs: Labs Test 02/24/20 08:44 02/24/20 15:10 02/25/20 04:35 02/26/20 16:50 Arterial Blood pH 7.355 (7.350-7.450) Arterial Blood Partial Pressure CO2 35.0 mmHg (35.0-45.0) Arterial Blood Partial Pressure O2 66.3 mmHg (75.0-100.0) Arterial Blood HCO3 19.1 mmol/L (22.0-26.0) Arterial Blood Oxygen Saturation 90.6 % (95-100) Arterial Blood Base Excess -5.7 (-2-2) Jax Test Positive Activated Partial Thromboplast Time 31 SEC (23-33) 31 SEC (23-33) White Blood Count 9.7 K/UL (4.8-10.8) 9.2 K/UL (4.8-10.8) Red Blood Count 3.36 M/UL (4.20-5.40) 3.39 M/UL (4.20-5.40) Hemoglobin 10.5 G/DL (12.0-16.0) 10.7 G/DL (12.0-16.0) Hematocrit 31.8 % (37.0-47.0) 32.8 % (37.0-47.0) Mean Corpuscular Volume 95 FL (80-99) 97 FL (80-99) Mean Corpuscular Hemoglobin 31.2 PG (27.0-31.0) 31.6 PG (27.0-31.0) Mean Corpuscular Hemoglobin Concent 32.9 G/DL (32.0-36.0) 32.7 G/DL (32.0-36.0) Red Cell Distribution Width 12.5 % (11.6-14.8) 13.4 % (11.6-14.8) Platelet Count 412 K/UL (150-450) 431 K/UL (150-450) Mean Platelet Volume 7.5 FL (6.5-10.1) 8.0 FL (6.5-10.1) Neutrophils (%) (Auto) % (45.0-75.0) 88.1 % (45.0-75.0) Lymphocytes (%) (Auto) % (20.0-45.0) 6.0 % (20.0-45.0) Monocytes (%) (Auto) % (1.0-10.0) 4.9 % (1.0-10.0) Eosinophils (%) (Auto) % (0.0-3.0) 0.1 % (0.0-3.0) Basophils (%) (Auto) % (0.0-2.0) 0.9 % (0.0-2.0) Differential Total Cells Counted 100 Neutrophils % (Manual) 79 % (45-75) Lymphocytes % (Manual) 15 % (20-45) Monocytes % (Manual) 6 % (1-10) Eosinophils % (Manual) 0 % (0-3) Basophils % (Manual) 0 % (0-2) Band Neutrophils 0 % (0-8) Nucleated Red Blood Cells 10 /100 WBC Platelet Estimate Adequate Platelet Morphology Normal Hypochromasia 1+ Anisocytosis 1+ Erythrocyte Sedimentation Rate 65 MM/HR (0-20) Sodium Level 136 MMOL/L (136-145) 138 MMOL/L (136-145) Potassium Level 4.3 MMOL/L (3.5-5.1) 3.6 MMOL/L (3.5-5.1) Chloride Level 106 MMOL/L (98-107) 105 MMOL/L (98-107) Carbon Dioxide Level 19 MMOL/L (21-32) 23 MMOL/L (21-32) Anion Gap 11 mmol/L (5-15) 10 mmol/L (5-15) Blood Urea Nitrogen 42 mg/dL (7-18) 41 mg/dL (7-18) Creatinine 1.3 MG/DL (0.55-1.30) 1.1 MG/DL (0.55-1.30) Estimat Glomerular Filtration Rate 52.8 mL/min (>60) > 60 mL/min (>60) Glucose Level 137 MG/DL (74-106) 143 MG/DL (74-106) Calcium Level 8.4 MG/DL (8.5-10.1) 8.6 MG/DL (8.5-10.1) Total Bilirubin 0.3 MG/DL (0.2-1.0) 0.3 MG/DL (0.2-1.0) Aspartate Amino Transf (AST/SGOT) 46 U/L (15-37) 49 U/L (15-37) Alanine Aminotransferase (ALT/SGPT) 57 U/L (12-78) 60 U/L (12-78) Alkaline Phosphatase 173 U/L (46-116) 179 U/L (46-116) C-Reactive Protein, Quantitative 3.9 mg/dL (0.00-0.90) Total Protein 6.4 G/DL (6.4-8.2) 6.7 G/DL (6.4-8.2) Albumin 1.8 G/DL (3.4-5.0) 1.9 G/DL (3.4-5.0) Globulin 4.6 g/dL 4.8 g/dL Albumin/Globulin Ratio 0.4 (1.0-2.7) 0.4 (1.0-2.7) Amylase Level 33 U/L (25-115) Lipase 62 U/L (73-393) Test 02/27/20 04:19 White Blood Count 8.2 K/UL (4.8-10.8) Red Blood Count 3.35 M/UL (4.20-5.40) Hemoglobin 10.5 G/DL (12.0-16.0) Hematocrit 31.5 % (37.0-47.0) Mean Corpuscular Volume 94 FL (80-99) Mean Corpuscular Hemoglobin 31.4 PG (27.0-31.0) Mean Corpuscular Hemoglobin Concent 33.4 G/DL (32.0-36.0) Red Cell Distribution Width 12.0 % (11.6-14.8) Platelet Count 407 K/UL (150-450) Mean Platelet Volume 7.0 FL (6.5-10.1) Neutrophils (%) (Auto) 80.4 % (45.0-75.0) Lymphocytes (%) (Auto) 10.4 % (20.0-45.0) Monocytes (%) (Auto) 7.8 % (1.0-10.0) Eosinophils (%) (Auto) 0.1 % (0.0-3.0) Basophils (%) (Auto) 1.3 % (0.0-2.0) Prothrombin Time 13.0 SEC (9.30-11.50) Prothromb Time International Ratio 1.2 (0.9-1.1) Activated Partial Thromboplast Time 29 SEC (23-33) Sodium Level 141 MMOL/L (136-145) Potassium Level 3.6 MMOL/L (3.5-5.1) Chloride Level 109 MMOL/L (98-107) Carbon Dioxide Level 25 MMOL/L (21-32) Anion Gap 7 mmol/L (5-15) Blood Urea Nitrogen 39 mg/dL (7-18) Creatinine 1.1 MG/DL (0.55-1.30) Estimat Glomerular Filtration Rate > 60 mL/min (>60) Glucose Level 119 MG/DL (74-106) Calcium Level 8.3 MG/DL (8.5-10.1) Objective: WDWN NAD on vent reduced breath sounds bilaterally without rhonchi or wheeze [id number] without MRG NABS nontender no HSM no CCE nonfocal poor LOC reduced ROM skin noted reviewed and edited feeding tube in place Juan Snow MD Feb 27, 2020 08:18
[2020-02-27] MEDS: SELEXIPAG ORAL SCH ×3 (08:46→17:17)
[2020-02-27] MEDS: Revatio 20mg tab ORAL SCH ×3 (08:46→17:17)
[2020-02-27] MEDS: carBAMazepine 200mg tab NG SCH ×3 (08:46→17:17)
[2020-02-27] MEDS: OPSUMIT 10 MG ORAL SCH (08:46)
[2020-02-27] MEDS: Lacri-Lube Opth Oint 3.5gm BOTH EYES SCH ×3 (08:53→22:06)
[2020-02-27] MEDS: levETIRAcetam 1,000mg/NS100ml 100 ML IVPB SCH ×2 (08:54→20:42)
--- NOTE | 2020-02-27 10:19 | Surgery Progress Note ---
Surgery Progress Note Subjective Additional Comments trach today Objective Last 24 Hour Vital Signs Date Time Temp Pulse Resp B/P (MAP) Pulse Ox O2 Delivery O2 Flow Rate FiO2 02/27/20 10:00 82 17 121/67 (85) 100 02/27/20 09:15 81 13 30 02/27/20 09:00 85 14 129/76 (93) 100 02/27/20 09:00 85 13 129/76 (93) 100 02/27/20 08:46 80 136/87 02/27/20 08:00 97.5 80 15 136/87 (103) 100 02/27/20 08:00 Mechanical Ventilator 02/27/20 08:00 30 02/27/20 07:48 80 02/27/20 07:02 80 16 30 02/27/20 07:00 81 17 125/71 (89) 100 02/27/20 06:30 82 14 02/27/20 06:00 77 13 99/57 (71) 99 02/27/20 05:00 84 15 111/69 (83) 100 02/27/20 04:42 82 16 30 02/27/20 04:00 98.4 79 13 112/64 (80) 100 02/27/20 04:00 Mechanical Ventilator 02/27/20 04:00 81 02/27/20 04:00 30 02/27/20 03:00 80 19 128/74 (92) 100 02/27/20 02:40 83 12 30 02/27/20 02:00 77 14 98/60 (73) 100 02/27/20 01:12 85 15 30 02/27/20 01:00 84 14 116/70 (85) 100 02/27/20 00:00 97.8 84 14 115/70 (85) 100 02/27/20 00:00 30 02/27/20 00:00 Mechanical Ventilator 02/27/20 00:00 87 02/26/20 23:00 83 17 117/66 (83) 100 02/26/20 22:42 84 14 30 02/26/20 22:00 89 16 97/58 (71) 100 02/26/20 21:36 91 119/68 02/26/20 21:30 89 15 119/68 (85) 100 02/26/20 21:00 88 16 106/61 (76) 100 02/26/20 20:47 85 17 30 02/26/20 20:00 Mechanical Ventilator 02/26/20 20:00 93 02/26/20 20:00 30 02/26/20 20:00 98.2 84 16 100/50 (67) 100 02/26/20 19:00 91 14 108/58 (75) 100 02/26/20 18:33 92 14 30 02/26/20 18:00 82 14 103/65 (78) 100 02/26/20 17:14 89 19 30 02/26/20 17:00 89 16 115/70 (85) 100 02/26/20 16:00 Mechanical Ventilator 02/26/20 16:00 97.7 86 12 115/66 (82) 100 02/26/20 16:00 30 02/26/20 16:00 82 02/26/20 15:12 87 19 30 02/26/20 15:00 90 14 118/66 (83) 100 02/26/20 14:00 88 12 112/67 (82) 100 02/26/20 13:16 85 14 30 02/26/20 13:00 97.5 86 12 118/71 (87) 100 02/26/20 12:00 82 13 133/79 (97) 100 02/26/20 12:00 30 02/26/20 12:00 82 02/26/20 12:00 Mechanical Ventilator 02/26/20 11:24 79 15 30 02/26/20 11:00 79 12 132/74 (93) 100 I&O Intake and Output 02/26/20 02/27/20 19:00 07:00 Intake Total 420 ml 710 ml Output Total 700 ml 1230 ml Balance -280 ml -520 ml Free Water 60 ml IV Total 590 ml Tube Feeding 360 ml 120 ml Output Urine Total 700 ml 1230 ml Laboratory Tests Test 02/26/20 16:50 02/27/20 04:19 White Blood Count 9.2 K/UL (4.8-10.8) 8.2 K/UL (4.8-10.8) Red Blood Count 3.39 M/UL (4.20-5.40) L 3.35 M/UL (4.20-5.40) L Hemoglobin 10.7 G/DL (12.0-16.0) L 10.5 G/DL (12.0-16.0) L Hematocrit 32.8 % (37.0-47.0) L 31.5 % (37.0-47.0) L Mean Corpuscular Volume 97 FL (80-99) 94 FL (80-99) Mean Corpuscular Hemoglobin 31.6 PG (27.0-31.0) H 31.4 PG (27.0-31.0) H Mean Corpuscular Hemoglobin Concent 32.7 G/DL (32.0-36.0) 33.4 G/DL (32.0-36.0) Red Cell Distribution Width 13.4 % (11.6-14.8) 12.0 % (11.6-14.8) Platelet Count 431 K/UL (150-450) 407 K/UL (150-450) Mean Platelet Volume 8.0 FL (6.5-10.1) 7.0 FL (6.5-10.1) Neutrophils (%) (Auto) 88.1 % (45.0-75.0) H 80.4 % (45.0-75.0) H Lymphocytes (%) (Auto) 6.0 % (20.0-45.0) L 10.4 % (20.0-45.0) L Monocytes (%) (Auto) 4.9 % (1.0-10.0) 7.8 % (1.0-10.0) Eosinophils (%) (Auto) 0.1 % (0.0-3.0) 0.1 % (0.0-3.0) Basophils (%) (Auto) 0.9 % (0.0-2.0) 1.3 % (0.0-2.0) Sodium Level 138 MMOL/L (136-145) 141 MMOL/L (136-145) Potassium Level 3.6 MMOL/L (3.5-5.1) 3.6 MMOL/L (3.5-5.1) Chloride Level 105 MMOL/L (98-107) 109 MMOL/L (98-107) H Carbon Dioxide Level 23 MMOL/L (21-32) 25 MMOL/L (21-32) Anion Gap 10 mmol/L (5-15) 7 mmol/L (5-15) Blood Urea Nitrogen 41 mg/dL (7-18) H 39 mg/dL (7-18) H Creatinine 1.1 MG/DL (0.55-1.30) 1.1 MG/DL (0.55-1.30) Estimat Glomerular Filtration Rate > 60 mL/min (>60) > 60 mL/min (>60) Glucose Level 143 MG/DL (74-106) H 119 MG/DL (74-106) H Calcium Level 8.6 MG/DL (8.5-10.1) 8.3 MG/DL (8.5-10.1) L Total Bilirubin 0.3 MG/DL (0.2-1.0) Aspartate Amino Transf (AST/SGOT) 49 U/L (15-37) H Alanine Aminotransferase (ALT/SGPT) 60 U/L (12-78) Alkaline Phosphatase 179 U/L (46-116) H Total Protein 6.7 G/DL (6.4-8.2) Albumin 1.9 G/DL (3.4-5.0) L Globulin 4.8 g/dL Albumin/Globulin Ratio 0.4 (1.0-2.7) L Prothrombin Time 13.0 SEC (9.30-11.50) H Prothromb Time International Ratio 1.2 (0.9-1.1) H Activated Partial Thromboplast Time 29 SEC (23-33) Plan Problems: (1) Respiratory failure Assessment & Plan: Respiratory insufficiency requiring prolonged ventilatory support currently remains on vent support unable to wean safely. Patient with altered level consciousness this time not responsive. Patient is a candidate for a tracheostomy. Pulmonology discussed with the family and they have agreed to proceed. Will optimize and plan for surgical intervention soon. Tracheostomy indicated and recommended. Thank you Lucian horvath patient's care will follow with recommendations Bassam Hui Feb 27, 2020 10:19
[2020-02-27] MEDS ORDERED: Rocuronium Bromide 50mg/5ml Inj IV ONE (10:55)
[2020-02-27] MEDS ORDERED: Lidocaine 1% 10mg/ml/Epi 0.005mg/ml 30ml vial INJ ONE (10:56)
[2020-02-27] MEDS ORDERED: NS Irrig 1000ml ONE (11:00)
[2020-02-27] MEDS ORDERED: Sterile Water Irrig 1000ml IRRIG ONE (11:00)
--- NOTE | 2020-02-27 11:03 | Anethesia Preoperative Eval ---
Anesthesia Pre-op PMH/ROS General Date of Evaluation: Feb 27, 2020 Time of Evaluation: 10:47 Anesthesiologist: Fito ASA Score: ASA 4 Mallampati Score Class I : Soft palate, uvula, fauces, pillars visible Class II: Soft palate, uvula, fauces visible Class III: Soft palate, base of uvula visible Class IV: Only hard plate visible Mallampati Classification: Class II Surgeon: Korina Diagnosis: Vent Failure Surgical Procedure: Tracheostomy Anesthesia History: none Family History: no anesthesia problems Allergies: Coded Allergies: PENICILLINS (Verified Allergy, Severe, 08/07/12) FISH CONTAINING PRODUCTS (Verified Allergy, Unknown, 06/02/18) Uncoded Allergies: seafood (Allergy, Unknown, 06/02/18) Medications: see eMAR Patient NPO?: Yes Past Medical History Cardiovascular: Reports: HTN, other - CHF, Cardiac SX Neurologic/Psychiatric: Reports: other - Neurofibromatosis, Meningioma, Seizures HEENT: Reports: cataract (L), cataract (R), other - Blind, Deaf Hematology/Immune: Reports: anemia, DVT PSxH Narrative: Multiple Crainiotomies Anesthesia Pre-op Phys. Exam Physician Exam Last Vital Signs Date Time Temp Pulse Resp B/P (MAP) Pulse Ox O2 Delivery O2 Flow Rate FiO2 02/27/20 10:44 78 16 30 02/27/20 10:00 121/67 (85) 100 02/27/20 08:00 97.5 02/27/20 08:00 Mechanical Ventilator Constitutional: NAD Neurologic: CN 2-12 intact Cardiovascular: RRR Respiratory: CTA Gastrointestinal: S/NT/ND Airway Exam Mallampati Score: Class III MO: limited Neck: Intubated ROM: limited Teeth: missing, intact Anesthesia Pre-op A/P Labs Hematology Test 02/26/20 16:50 02/27/20 04:19 White Blood Count 9.2 K/UL (4.8-10.8) 8.2 K/UL (4.8-10.8) Red Blood Count 3.39 M/UL (4.20-5.40) L 3.35 M/UL (4.20-5.40) L Hemoglobin 10.7 G/DL (12.0-16.0) L 10.5 G/DL (12.0-16.0) L Hematocrit 32.8 % (37.0-47.0) L 31.5 % (37.0-47.0) L Mean Corpuscular Volume 97 FL (80-99) 94 FL (80-99) Mean Corpuscular Hemoglobin 31.6 PG (27.0-31.0) H 31.4 PG (27.0-31.0) H Mean Corpuscular Hemoglobin Concent 32.7 G/DL (32.0-36.0) 33.4 G/DL (32.0-36.0) Red Cell Distribution Width 13.4 % (11.6-14.8) 12.0 % (11.6-14.8) Platelet Count 431 K/UL (150-450) 407 K/UL (150-450) Mean Platelet Volume 8.0 FL (6.5-10.1) 7.0 FL (6.5-10.1) Neutrophils (%) (Auto) 88.1 % (45.0-75.0) H 80.4 % (45.0-75.0) H Lymphocytes (%) (Auto) 6.0 % (20.0-45.0) L 10.4 % (20.0-45.0) L Monocytes (%) (Auto) 4.9 % (1.0-10.0) 7.8 % (1.0-10.0) Eosinophils (%) (Auto) 0.1 % (0.0-3.0) 0.1 % (0.0-3.0) Basophils (%) (Auto) 0.9 % (0.0-2.0) 1.3 % (0.0-2.0) Coagulation Test 02/27/20 04:19 Prothrombin Time 13.0 SEC (9.30-11.50) H Prothromb Time International Ratio 1.2 (0.9-1.1) H Activated Partial Thromboplast Time 29 SEC (23-33) Chemistry Test 02/26/20 16:50 02/27/20 04:19 Sodium Level 138 MMOL/L (136-145) 141 MMOL/L (136-145) Potassium Level 3.6 MMOL/L (3.5-5.1) 3.6 MMOL/L (3.5-5.1) Chloride Level 105 MMOL/L (98-107) 109 MMOL/L (98-107) H Carbon Dioxide Level 23 MMOL/L (21-32) 25 MMOL/L (21-32) Anion Gap 10 mmol/L (5-15) 7 mmol/L (5-15) Blood Urea Nitrogen 41 mg/dL (7-18) H 39 mg/dL (7-18) H Creatinine 1.1 MG/DL (0.55-1.30) 1.1 MG/DL (0.55-1.30) Estimat Glomerular Filtration Rate > 60 mL/min (>60) > 60 mL/min (>60) Glucose Level 143 MG/DL (74-106) H 119 MG/DL (74-106) H Calcium Level 8.6 MG/DL (8.5-10.1) 8.3 MG/DL (8.5-10.1) L Total Bilirubin 0.3 MG/DL (0.2-1.0) Aspartate Amino Transf (AST/SGOT) 49 U/L (15-37) H Alanine Aminotransferase (ALT/SGPT) 60 U/L (12-78) Alkaline Phosphatase 179 U/L (46-116) H Total Protein 6.7 G/DL (6.4-8.2) Albumin 1.9 G/DL (3.4-5.0) L Globulin 4.8 g/dL Albumin/Globulin Ratio 0.4 (1.0-2.7) L Risk Assessment & Plan Assessment: ASA 4 Plan: GA Status Change Before Surgery: No Efren Payton MD Feb 27, 2020 11:02
--- NOTE | 2020-02-27 11:06 | Neurology Progress Note ---
Interim History Interim History Interim History Ms. Roseann Srinivasan is a 49-year-old, black lady, of unknown handedness, who does have a past history of neurofibromatosis, a seizure disorder, pulmonary hypertension, deafness of an unknown degree, and visual problems of an unknown degree. She was hospitalized on 02/13/2020 for an altered mental state preceded by failure to thrive, fever and possibly shaking chills, and a global decline in function. It was felt that she may have a urinary tract infection. She was intubated and artificially ventilated, started on intravenous fluids, and antibiotics, and was observed in the ICU. She does have a history of seizures but has not been observed to have any seizures during her hospitalization. She continues to be unresponsive. She has been opening and closing her eyes spontaneously. She however has not been able to interact in any manner. There has been no significant change in her medical or neurological condition. It is still unclear as to what exactly her baseline neurological function was prior to this admission. Plans are for a tracheostomy today. Review of Systems Neuro Review of Systems Unable to obtain. Objective Physical Exam Last Vital Signs Date Time Temp Pulse Resp B/P (MAP) Pulse Ox O2 Delivery O2 Flow Rate FiO2 02/27/20 10:44 78 16 30 02/27/20 10:00 121/67 (85) 100 02/27/20 08:00 97.5 02/27/20 08:00 Mechanical Ventilator Laboratory Tests Test 02/26/20 16:50 02/27/20 04:19 White Blood Count 9.2 K/UL (4.8-10.8) 8.2 K/UL (4.8-10.8) Red Blood Count 3.39 M/UL (4.20-5.40) L 3.35 M/UL (4.20-5.40) L Hemoglobin 10.7 G/DL (12.0-16.0) L 10.5 G/DL (12.0-16.0) L Hematocrit 32.8 % (37.0-47.0) L 31.5 % (37.0-47.0) L Mean Corpuscular Volume 97 FL (80-99) 94 FL (80-99) Mean Corpuscular Hemoglobin 31.6 PG (27.0-31.0) H 31.4 PG (27.0-31.0) H Mean Corpuscular Hemoglobin Concent 32.7 G/DL (32.0-36.0) 33.4 G/DL (32.0-36.0) Red Cell Distribution Width 13.4 % (11.6-14.8) 12.0 % (11.6-14.8) Platelet Count 431 K/UL (150-450) 407 K/UL (150-450) Mean Platelet Volume 8.0 FL (6.5-10.1) 7.0 FL (6.5-10.1) Neutrophils (%) (Auto) 88.1 % (45.0-75.0) H 80.4 % (45.0-75.0) H Lymphocytes (%) (Auto) 6.0 % (20.0-45.0) L 10.4 % (20.0-45.0) L Monocytes (%) (Auto) 4.9 % (1.0-10.0) 7.8 % (1.0-10.0) Eosinophils (%) (Auto) 0.1 % (0.0-3.0) 0.1 % (0.0-3.0) Basophils (%) (Auto) 0.9 % (0.0-2.0) 1.3 % (0.0-2.0) Sodium Level 138 MMOL/L (136-145) 141 MMOL/L (136-145) Potassium Level 3.6 MMOL/L (3.5-5.1) 3.6 MMOL/L (3.5-5.1) Chloride Level 105 MMOL/L (98-107) 109 MMOL/L (98-107) H Carbon Dioxide Level 23 MMOL/L (21-32) 25 MMOL/L (21-32) Anion Gap 10 mmol/L (5-15) 7 mmol/L (5-15) Blood Urea Nitrogen 41 mg/dL (7-18) H 39 mg/dL (7-18) H Creatinine 1.1 MG/DL (0.55-1.30) 1.1 MG/DL (0.55-1.30) Estimat Glomerular Filtration Rate > 60 mL/min (>60) > 60 mL/min (>60) Glucose Level 143 MG/DL (74-106) H 119 MG/DL (74-106) H Calcium Level 8.6 MG/DL (8.5-10.1) 8.3 MG/DL (8.5-10.1) L Total Bilirubin 0.3 MG/DL (0.2-1.0) Aspartate Amino Transf (AST/SGOT) 49 U/L (15-37) H Alanine Aminotransferase (ALT/SGPT) 60 U/L (12-78) Alkaline Phosphatase 179 U/L (46-116) H Total Protein 6.7 G/DL (6.4-8.2) Albumin 1.9 G/DL (3.4-5.0) L Globulin 4.8 g/dL Albumin/Globulin Ratio 0.4 (1.0-2.7) L Prothrombin Time 13.0 SEC (9.30-11.50) H Prothromb Time International Ratio 1.2 (0.9-1.1) H Activated Partial Thromboplast Time 29 SEC (23-33) Neurologic Exam Objective PHYSICAL EXAMINATION: GENERAL: She is a well-developed, relatively well-nourished, black lady, lying in an intensive care unit bed, connected to ventilator via an endotracheal tube. HEAD: Normocephalic and atraumatic. NECK: No neck rigidity was observed. EENT: Her chemosis was significantly better. SPINE: Cervical, thoracic and lumbosacral spine revealed no tenderness or paraspinal muscle spasm. NEUROLOGIC EXAMINATION: MENTAL STATUS EXAMINATION: She opened her eyes on vocal stimulation. She however was unable to interact in any manner. She responded to deep pain with minimal nonpurposeful withdrawal in both upper extremities and no response in both lower extremities. Further mental status testing was impossible. SPEECH: Could not be tested. LANGUAGE: Could not be tested. CRANIAL NERVE EXAMINATION: II: She did not blink to threat. III, IV, : External ocular movements were present but restricted on oculocephalic maneuvers. The pupils were 3 mm in diameter equal, round, regular and did not react to light. V & VII: The corneal reflexes were absent bilaterally. However she moved her head when the cornea was stimulated. VIII: She did respond to sounds with eye opening. She had no nystagmus. IX & X: The gag reflex was absent on manipulating the endotracheal tube. XI: The sternocleidomastoids and trapezii did not function. XII: The tongue could not be examined properly. MOTOR SYSTEM: The tone was diminished in all 4 extremities. Examination of muscle mass revealed generalized muscle wasting. Examination of power was impossible to perform because even on applying deep painful stimuli the only response seen was nonpurposeful withdrawal in both upper extremities. SENSORY EXAMINATION: She only responded to deep pain with nonpurposeful withdrawal in both upper extremities. REFLEXES: 0 at the biceps, triceps, brachioradialis, knees and ankles. The plantar responses were mute bilaterally. COORDINATION, STANCE & GAIT: Not be tested. ABNORMAL MOVEMENTS: None Impression/Recommendations Diagnostic Impression DIAGNOSTIC IMPRESSION: 1. Ms. Roseann Srinivasan is a 49-year-old, black lady, of unknown handedness, who does have a past history of neurofibromatosis, a seizure disorder, pulmonary hypertension, deafness of an unknown degree, and visual problems of an unknown degree. 2. She was hospitalized on 02/13/2020 and altered mental state preceded by failure to thrive, fever and possibly shaking chills, and a global decline in function. It was felt that she may have urinary tract infection. She was intubated and artificially ventilated, started on intravenous fluids, and antibiotics, and was observed in the ICU. 3. She does have a history of seizures but has not been observed to have any seizures during hospitalization. 4. An EEG performed on 02/18/2020 revealed: An encephalopathy of a moderate degree with a toxic metabolic component. Right temporal focal dysfunction. A right temporal epileptogenic focus with phase reversals in the mid temporal region. 5. She continues to be unresponsive. She has been opening and closing her eyes spontaneously. She however has not been able to interact in any manner. There has been no significant change in her medical or neurological condition. It is still unclear as to what exactly her baseline neurological function was prior to this admission. Plans are for a tracheostomy today. 6. On neurologic examination, at this time she opens her eyes on vocal stimulation. She however is unable to interact in any manner. She responds to deep pain with minimal nonpurposeful withdrawal in both upper extremities and no response in both lower extremities. Further mental status testing is impossible. She does have brainstem reflexes in the form of eye movements on oculocephalic maneuvers, and spontaneous ventilations. Her deep tendon reflexes are globally absent and the plantar responses mute. 7. Her latest laboratory data on my initial evaluation revealed an anemia with a hemoglobin of 10.1 g, AST elevated at 49, alkaline phosphate is elevated at 198, proBNP elevated at 11,463, normal PO2 at 83, minimally low PCO2 at 33, normal TSH, and a therapeutic Tegretol level at 10.2. 8. Further laboratory tests have revealed a normal vitamin B12 level, normal folate, ammonia level elevated at 46, and an elevated ESR at 90. 9. The CT scan of the brain without contrast performed on 02/21/2020 revealed "Innumerable bilateral meningiomas, white matter edema of the left cerebellar hemisphere and the right cerebral hemisphere, mass-effect upon the right lateral ventricle with shift of the midline structures from the right to the left, loss of salas-white differentiation, but no acute pathology." The findings are very similar to a scan performed in November 2019. 10. The patient's history, neurological examination, CT scan of the brain and EEG are most consistent with a significant toxic metabolic encephalopathy superimposed on significant structural brain disease but seems to be old. At this point in time it is unknown if the patient may also have acute intracranial pathology as an MRI scan cannot be obtained. 11. With regards to her seizure disorder, the patient has not had any clinical seizures while hospitalized and in addition the EEG also did not reveal any seizures but did reveal interictal phenomena emanating from the right temporal region. Recommendations RECOMMENDATIONS: 1. Continue present management. 2. Continue prehospitalization anticonvulsant regimen. 3. Try to determine the patient's prehospitalization baseline and to when exactly she was able to talk and walk. 4. Agree with tracheostomy. 5. Observe closely. Otoniel Ellis M.D., M.S.P.H. Neurologist & Clinical Neurophysiologist Otoniel Ellis MD Feb 27, 2020 11:06
--- NOTE | 2020-02-27 11:21 | Infectious Diseases Prog Note ---
Assessment/Plan Assessment/Plan antibiotics : none A 1. acenitobacter pneumonia s/p rx COVID 19 negative 2. respiratory failure 3. neurofibromatosis 4. seizures 5. pulmonary hypertension 6. + blood cultures with coag neg staph likely contaminated P 1. continue off antibiotics 2. will follow up cultures Subjective ROS Limited/Unobtainable: Yes Allergies: Coded Allergies: PENICILLINS (Verified Allergy, Severe, 08/07/12) FISH CONTAINING PRODUCTS (Verified Allergy, Unknown, 06/02/18) Uncoded Allergies: seafood (Allergy, Unknown, 06/02/18) Objective Last 24 Hour Vital Signs Date Time Temp Pulse Resp B/P (MAP) Pulse Ox O2 Delivery O2 Flow Rate FiO2 02/27/20 10:44 78 16 30 02/27/20 10:00 82 17 121/67 (85) 100 02/27/20 09:15 81 13 30 02/27/20 09:00 85 14 129/76 (93) 100 02/27/20 09:00 85 13 129/76 (93) 100 02/27/20 08:46 80 136/87 02/27/20 08:00 97.5 80 15 136/87 (103) 100 02/27/20 08:00 Mechanical Ventilator 02/27/20 08:00 30 02/27/20 07:48 80 02/27/20 07:02 80 16 30 02/27/20 07:00 81 17 125/71 (89) 100 02/27/20 06:30 82 14 02/27/20 06:00 77 13 99/57 (71) 99 02/27/20 05:00 84 15 111/69 (83) 100 02/27/20 04:42 82 16 30 02/27/20 04:00 98.4 79 13 112/64 (80) 100 02/27/20 04:00 Mechanical Ventilator 02/27/20 04:00 81 02/27/20 04:00 30 02/27/20 03:00 80 19 128/74 (92) 100 02/27/20 02:40 83 12 30 02/27/20 02:00 77 14 98/60 (73) 100 02/27/20 01:12 85 15 30 02/27/20 01:00 84 14 116/70 (85) 100 02/27/20 00:00 97.8 84 14 115/70 (85) 100 02/27/20 00:00 30 02/27/20 00:00 Mechanical Ventilator 02/27/20 00:00 87 02/26/20 23:00 83 17 117/66 (83) 100 02/26/20 22:42 84 14 30 02/26/20 22:00 89 16 97/58 (71) 100 02/26/20 21:36 91 119/68 02/26/20 21:30 89 15 119/68 (85) 100 02/26/20 21:00 88 16 106/61 (76) 100 02/26/20 20:47 85 17 30 02/26/20 20:00 Mechanical Ventilator 02/26/20 20:00 93 02/26/20 20:00 30 02/26/20 20:00 98.2 84 16 100/50 (67) 100 02/26/20 19:00 91 14 108/58 (75) 100 02/26/20 18:33 92 14 30 02/26/20 18:00 82 14 103/65 (78) 100 02/26/20 17:14 89 19 30 02/26/20 17:00 89 16 115/70 (85) 100 02/26/20 16:00 Mechanical Ventilator 02/26/20 16:00 97.7 86 12 115/66 (82) 100 02/26/20 16:00 30 02/26/20 16:00 82 02/26/20 15:12 87 19 30 02/26/20 15:00 90 14 118/66 (83) 100 02/26/20 14:00 88 12 112/67 (82) 100 02/26/20 13:16 85 14 30 02/26/20 13:00 97.5 86 12 118/71 (87) 100 02/26/20 12:00 82 13 133/79 (97) 100 02/26/20 12:00 30 02/26/20 12:00 82 02/26/20 12:00 Mechanical Ventilator 02/26/20 11:24 79 15 30 Height (Feet): 5 Height (Inches): 5.00 Weight (Pounds): 150 HEENT: other - intubated Respiratory/Chest: lungs clear Cardiovascular: normal rate, regular rhythm, no gallop/murmur Abdomen: soft, non tender Extremities: no edema Laboratory Tests Test 02/26/20 16:50 02/27/20 04:19 White Blood Count 9.2 K/UL (4.8-10.8) 8.2 K/UL (4.8-10.8) Red Blood Count 3.39 M/UL (4.20-5.40) L 3.35 M/UL (4.20-5.40) L Hemoglobin 10.7 G/DL (12.0-16.0) L 10.5 G/DL (12.0-16.0) L Hematocrit 32.8 % (37.0-47.0) L 31.5 % (37.0-47.0) L Mean Corpuscular Volume 97 FL (80-99) 94 FL (80-99) Mean Corpuscular Hemoglobin 31.6 PG (27.0-31.0) H 31.4 PG (27.0-31.0) H Mean Corpuscular Hemoglobin Concent 32.7 G/DL (32.0-36.0) 33.4 G/DL (32.0-36.0) Red Cell Distribution Width 13.4 % (11.6-14.8) 12.0 % (11.6-14.8) Platelet Count 431 K/UL (150-450) 407 K/UL (150-450) Mean Platelet Volume 8.0 FL (6.5-10.1) 7.0 FL (6.5-10.1) Neutrophils (%) (Auto) 88.1 % (45.0-75.0) H 80.4 % (45.0-75.0) H Lymphocytes (%) (Auto) 6.0 % (20.0-45.0) L 10.4 % (20.0-45.0) L Monocytes (%) (Auto) 4.9 % (1.0-10.0) 7.8 % (1.0-10.0) Eosinophils (%) (Auto) 0.1 % (0.0-3.0) 0.1 % (0.0-3.0) Basophils (%) (Auto) 0.9 % (0.0-2.0) 1.3 % (0.0-2.0) Sodium Level 138 MMOL/L (136-145) 141 MMOL/L (136-145) Potassium Level 3.6 MMOL/L (3.5-5.1) 3.6 MMOL/L (3.5-5.1) Chloride Level 105 MMOL/L (98-107) 109 MMOL/L (98-107) H Carbon Dioxide Level 23 MMOL/L (21-32) 25 MMOL/L (21-32) Anion Gap 10 mmol/L (5-15) 7 mmol/L (5-15) Blood Urea Nitrogen 41 mg/dL (7-18) H 39 mg/dL (7-18) H Creatinine 1.1 MG/DL (0.55-1.30) 1.1 MG/DL (0.55-1.30) Estimat Glomerular Filtration Rate > 60 mL/min (>60) > 60 mL/min (>60) Glucose Level 143 MG/DL (74-106) H 119 MG/DL (74-106) H Calcium Level 8.6 MG/DL (8.5-10.1) 8.3 MG/DL (8.5-10.1) L Total Bilirubin 0.3 MG/DL (0.2-1.0) Aspartate Amino Transf (AST/SGOT) 49 U/L (15-37) H Alanine Aminotransferase (ALT/SGPT) 60 U/L (12-78) Alkaline Phosphatase 179 U/L (46-116) H Total Protein 6.7 G/DL (6.4-8.2) Albumin 1.9 G/DL (3.4-5.0) L Globulin 4.8 g/dL Albumin/Globulin Ratio 0.4 (1.0-2.7) L Prothrombin Time 13.0 SEC (9.30-11.50) H Prothromb Time International Ratio 1.2 (0.9-1.1) H Activated Partial Thromboplast Time 29 SEC (23-33) Current Medications Medications (Trade) Dose Ordered Sig/Brian Route PRN Reason Start Time Stop Time Status Last Admin Dose Admin Acetaminophen (Tylenol) 650 mg Q4H PRN NG Mild Pain (Pain Scale 1-3) 02/14/20 03:00 03/15/20 02:59 02/17/20 05:28 Acetaminophen (Tylenol) 650 mg Q4H PRN NG Temp >100.5 02/14/20 03:00 03/15/20 02:59 02/19/20 21:04 Al Hydroxide/Mg Hydroxide (Mylanta) 30 ml Q4H PRN ORAL Dyspepsia 02/14/20 03:00 03/15/20 02:59 Artificial Tears (Lacri-Lube) 1 applic EVERY 8 HOURS BOTH EYES 02/27/20 14:00 03/18/20 09:29 Carbamazepine (TEGretol) 200 mg TID NG 02/14/20 09:00 03/15/20 08:59 02/27/20 08:46 Chlorhexidine Gluconate (Gricelda-Hex 2%) 1 applic DAILY@2000 TOPIC 02/26/20 20:00 05/26/20 19:59 02/26/20 20:05 Dextrose/ Electrolytes 1,000 ml @ 75 mls/hr [id number] IV 02/27/20 00:00 03/28/20 00:00 02/27/20 00:28 Furosemide (Lasix) 40 mg DAILY IV 02/24/20 22:15 03/25/20 22:14 02/27/20 08:46 Gabapentin (Neurontin) 100 mg THREE TIMES A DAY ORAL 02/14/20 09:00 03/15/20 08:59 02/27/20 08:46 Heparin Sodium/ Sodium Chloride (Heparin 1000 units/500ml Premix) 1,000 unit ONCE PRN IV for picc line placement 02/26/20 12:45 02/28/20 12:44 Lansoprazole (Prevacid) 30 mg DAILY NG 02/14/20 09:00 03/15/20 08:59 02/27/20 08:46 Levetiracetam 100 ml @ 400 mls/hr Q12HR IVPB 02/19/20 09:00 05/19/20 08:59 02/27/20 08:54 Lidocaine HCl (Xylocaine 1% 30ml) 30 ml ONCE PRN INJ for picc line placement 02/26/20 12:45 02/28/20 12:44 Magnesium Hydroxide (Mom) 30 ml TID PRN NG Constipation 02/26/20 19:00 03/27/20 18:59 Metoclopramide HCl (Reglan) 5 mg Q6H IVP 02/25/20 13:00 03/26/20 12:59 02/27/20 06:26 Metoclopramide HCl (Reglan) 5 mg Q6H PRN IVP Nausea & Vomiting 02/19/20 08:15 03/20/20 08:14 02/25/20 05:09 Metoprolol Tartrate (Lopressor) 25 mg Q12HR ORAL 02/15/20 21:00 05/15/20 20:59 02/27/20 08:46 Patient Own Medication (Patient's Own Med) 1 ea DAILY ORAL 02/14/20 13:00 03/15/20 12:59 02/27/20 08:46 Patient Own Medication (Patient's Own Med) 1 ea TID ORAL 02/14/20 13:00 03/15/20 12:59 02/27/20 08:46 Sildenafil Citrate (Revatio) 20 mg TID ORAL 02/14/20 09:00 05/14/20 08:59 02/27/20 08:46 Maci Deleon MD Feb 27, 2020 11:21
--- NOTE | 2020-02-27 11:30 | Immediate Post-Op Evaluation ---
Immediate Post-Op Evalulation Immediate Post-Op Evalulation Procedure: Trachostomy Date of Evaluation: Feb 27, 2020 Time of Evaluation: 12:12 IV Fluids: 10 cc NS Blood Products: 0 Estimated Blood Loss: 10 Urinary Output: 0 Blood Pressure Systolic: 124 Blood Pressure Diastolic: 64 Pulse Rate: 78 Respiratory Rate: 20 - Mech Vent O2 Sat by Pulse Oximetry: 100 Temperature (Fahrenheit): 98.6 Pain Score (1-10): 0 Nausea: No Vomiting: No Complications 0 Patient Status: awake, reacts, patent, none Hydration Status: adequate Efren Payton MD Feb 27, 2020 11:30
--- NOTE | 2020-02-27 11:30 | Pre-Procedure Note/Attestation ---
Pre-Procedure Note/Attestation Complete Prior to Procedure Procedure Narrative: tracheostomy Indications for Procedure Pre-Operative Diagnosis: respiratory insufficiency Attestation I attest that I discussed the nature of the procedure; its benefits; risks and complications; and alternatives (and the risks and benefits of such alternatives ), prior to the procedure, with the patient (or the patient's legal airport representative). I attest that, if there was a reasonable possibility of needing a blood transfusion, the patient (or the patient's legal airport representative) was given the [facility] standardized written summary, pursuant to the Aneudy Rosalba Blood Safety Act ([place] Health and Safety Code # 1645, as amended). I attest that I re-evaluated the patient just prior to the surgery and that there has been no change in the patient's H&P, except as documented below: Bassam Hui Feb 27, 2020 11:30
--- NOTE | 2020-02-27 11:31 | 48 Hour Post Anesthesia Eval ---
Post Anesthesia Evaluation Procedure: Trachostomy Date of Evaluation: Feb 27, 2020 Time of Evaluation: 14:23 Blood Pressure Systolic: 143 0: 81 Pulse Rate: 72 Respiratory Rate: 20 - Mech Vent Temperature (Fahrenheit): 98.6 O2 Sat by Pulse Oximetry: 100 Airway: patent Nausea: No Vomiting: No Pain Intensity: 0 Hydration Status: adequate Cardiopulmonary Status: Stable Mental Status/LOC: patient returned to baseline Follow-up Care/Observations: 0 Post-Anesthesia Complications: 0 Follow-up care needed: N/A Efren Payton MD Feb 27, 2020 11:31
--- NOTE | 2020-02-27 12:28 | Brief Operative Note ---
Immediate Post Operative Note Operative Note Pre-op Diagnosis: respiratory insufficiency Procedure: tracheostomy Post-op Diagnosis: same as pre-op Surgeon: soha Anesthesiologist: sonali Anesthesia: general, local Specimen: none Complications: none Condition: stable Fluids: see Estimated Blood Loss: minimal Drains: none Implant(s) used?: No Bassam Hui Feb 27, 2020 12:28
--- NOTE | 2020-02-27 13:30 | Operative Note - Dictated ---
DATE OF OPERATION: 02/27/2020 PREOPERATIVE DIAGNOSIS: Respiratory insufficiency requiring prolonged ventilatory support. POSTOPERATIVE DIAGNOSIS: Respiratory insufficiency requiring prolonged ventilatory support. OPERATION PERFORMED: Tracheostomy. ATTENDING SURGEON: Bassam Hui MD. ELECTRONIC WARFARE LINGUIST: None. ANESTHESIOLOGIST: Efren Payton MD. ANESTHESIA: General GETA plus local. ESTIMATED BLOOD LOSS: Minimal. IV FLUIDS: Please see anesthesia records. COMPLICATIONS: None. DRAINS: None. COUNTS: Sponge and needle count correct x2. WOUND CLASSIFICATION: Class 4. INDICATIONS FOR PROCEDURE: This is a 49-year-old female who has developed worsening respiratory insufficiency, has been intubated on respiratory support in the intensive care unit at [facility] for some time now. The patient has not been able to wean off ventilator support safely given altered mental status protect airway and ventilator support until weaning is indicated and recommended. Tracheostomy has been considered and discussion was had with medical teams, shipping clerk, intensive care unit team, and the patient's family and given her condition and care plan tracheostomy indicated recommended. Consent was obtained from the patient's family. OPERATIVE NOTE: The patient was taken to the operating room and placed on the operating table in supine position with bilateral arms down. All bony prominences well padded. SCDs placed. Preoperative time-out taken to identify the patient, procedure, operative staff, surgical staff. A shoulder roll was placed. The neck was extended. The neck was prepped and draped in the standard surgical fashion. Anatomical landmarks identified. Local anesthetic administrated throughout the procedure for the patient's comfort. Incision was made two fingers fingerbreadth above the sternal notch and carried down through the subcutaneous tissue, platysma down to the median raphae. Median raphae was identified, divided, and the strap muscles mobilized laterally. The trachea was identified and first, second, and third tracheal rings were clearly dissected out. A window was made between the second tracheal rings and a flap was made in the trachea. Once the flap was created, the ET tube was identified. With the assistance of the anesthesiologist, the ET tube was deflated and slowly withdrawn. Once above the level of the cords, and a 6-Chinese Shiley tracheostomy was inserted under direct visualization without complication. Tracheal balloon insufflated and the patient ventilated through tracheostomy with good end-tidal CO2 and volumes. The lateral edges of the skin were reapproximated using 4-0 Monocryl. A trach tie and dressings were applied. Deep suctioning was performed. The patient tolerated the procedure well, was taken to the intensive care unit in stable condition. Bassam Hui M.D. DR: Joshua JOB#: [id number] CC:
--- NOTE | 2020-02-27 16:47 | Brief Operative Note ---
Immediate Post Operative Note Operative Note Pre-op Diagnosis: needs ferry terminal agent IV access Procedure: PICC Post-op Diagnosis: same as pre-op Surgeon: Alvina Arias Anesthesia: local Specimen: none Complications: none Fluids: none Implant(s) used?: No Alexandru Arias MD Feb 27, 2020 16:47
--- NOTE | 2020-02-27 17:21 | Diagnostic Imaging Report ---
Indications: Needs long-term IV access Technique: Procedure performed at bedside. Procedural timeout performed. Ultrasound confirms patent compressible right distal vein. Total sterile technique, including sterile probe cover and sterile gel, sterile gloves, hand hygiene, hat, mask,, sterile gown, large sterile drape, and preparation with 2% chlorhexidine utilized. Local anesthesia with 1% lidocaine. Under real-time ultrasound guidance, puncture basilic vein using 21-gauge needle, passage 0.018 guidewire, exchange for 4 Nepali peel-away sheath. 4 Nepali Bard dual-lumen power PICC cut to 33 cm. It was inserted through the peel-away sheath. Peel-away sheath and guidewire removed. Catheter fixed to the skin. Both catheter ports aspirated and flushed. Patient tolerated procedure well, without immediate complication. Followup chest x-ray obtained, documents catheter tip position at the cavoatrial junction Impression: Successful bedside placement of right arm PICC under sonographic guidance, as described above.
[2020-02-27] MEDS: Dyna-Hex 2% Top Sol 2oz TOPIC SCH (20:02)
[2020-02-27] MEDS: Heparin 5000 units/ml inj SUBQ SCH (21:00)
--- NOTE | 2020-02-27 21:24 | General Progress Note ---
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 NPO for trach Objective Last 24 Hour Vital Signs Date Time Temp Pulse Resp B/P (MAP) Pulse Ox O2 Delivery O2 Flow Rate FiO2 02/27/20 21:06 101 125/77 02/27/20 20:00 30 02/27/20 20:00 103 02/27/20 20:00 103 21 115/63 (80) 100 02/27/20 20:00 Mechanical Ventilator 02/27/20 19:47 103 18 30 02/27/20 19:00 101 20 131/73 (92) 98 02/27/20 18:00 93 19 140/75 (96) 100 02/27/20 17:00 98.4 100 20 138/85 (102) 100 02/27/20 16:56 102 23 30 02/27/20 16:00 Mechanical Ventilator 02/27/20 16:00 30 02/27/20 16:00 94 20 133/77 (95) 100 02/27/20 16:00 98 02/27/20 15:30 85 21 122/67 (85) 100 02/27/20 15:10 87 22 30 02/27/20 15:00 86 21 119/60 (79) 98 02/27/20 14:04 92 23 126/68 (87) 100 02/27/20 13:00 81 20 139/70 (93) 99 02/27/20 12:46 80 20 30 02/27/20 12:00 Mechanical Ventilator 02/27/20 12:00 30 02/27/20 12:00 98.1 79 20 117/64 (81) 97 02/27/20 11:57 72 20 100 02/27/20 11:56 78 20 100 02/27/20 11:53 79 02/27/20 11:50 30 02/27/20 10:44 78 16 30 02/27/20 10:00 82 17 121/67 (85) 100 02/27/20 09:15 81 13 30 02/27/20 09:00 85 14 129/76 (93) 100 02/27/20 09:00 85 13 129/76 (93) 100 02/27/20 08:46 80 136/87 02/27/20 08:00 97.5 80 15 136/87 (103) 100 02/27/20 08:00 Mechanical Ventilator 02/27/20 08:00 30 02/27/20 07:48 80 02/27/20 07:02 80 16 30 02/27/20 07:00 81 17 125/71 (89) 100 02/27/20 06:30 82 14 02/27/20 06:00 77 13 99/57 (71) 99 02/27/20 05:00 84 15 111/69 (83) 100 02/27/20 04:42 82 16 30 02/27/20 04:00 98.4 79 13 112/64 (80) 100 02/27/20 04:00 Mechanical Ventilator 02/27/20 04:00 81 02/27/20 04:00 30 02/27/20 03:00 80 19 128/74 (92) 100 02/27/20 02:40 83 12 30 02/27/20 02:00 77 14 98/60 (73) 100 02/27/20 01:12 85 15 30 02/27/20 01:00 84 14 116/70 (85) 100 02/27/20 00:00 97.8 84 14 115/70 (85) 100 02/27/20 00:00 30 02/27/20 00:00 Mechanical Ventilator 02/27/20 00:00 87 02/26/20 23:00 83 17 117/66 (83) 100 02/26/20 22:42 84 14 30 02/26/20 22:00 89 16 97/58 (71) 100 02/26/20 21:36 91 119/68 02/26/20 21:30 89 15 119/68 (85) 100 Intake and Output 02/26/20 02/27/20 19:00 07:00 Intake Total 420 ml 710 ml Output Total 700 ml 1230 ml Balance -280 ml -520 ml Free Water 60 ml IV Total 590 ml Tube Feeding 360 ml 120 ml Output Urine Total 700 ml 1230 ml Laboratory Tests 02/27/20 04:19: White Blood Count 8.2, Red Blood Count 3.35L, Hemoglobin 10.5L, Hematocrit 31.5L , Mean Corpuscular Volume 94, Mean Corpuscular Hemoglobin 31.4H, Mean Corpuscular Hemoglobin Concent 33.4, Red Cell Distribution Width 12.0, Platelet Count 407, Mean Platelet Volume 7.0, Neutrophils (%) (Auto) 80.4H, Lymphocytes ( %) (Auto) 10.4L, Monocytes (%) (Auto) 7.8, Eosinophils (%) (Auto) 0.1, Basophils (%) (Auto) 1.3, Prothrombin Time 13.0H, Prothromb Time International Ratio 1.2H, Activated Partial Thromboplast Time 29, Sodium Level 141, Potassium Level 3.6, Chloride Level 109H, Carbon Dioxide Level 25, Anion Gap 7, Blood Urea Nitrogen 39H, Creatinine 1.1, Estimat Glomerular Filtration Rate > 60, Glucose Level 119H, Calcium Level 8.3L Height (Feet): 5 Height (Inches): 5.00 Weight (Pounds): 150 Objective WDWN AA woman NCAT, (+) ETT and NGT Coarse BS RR abd soft NT ND (++) edema Lilly Au MD Feb 27, 2020 21:24
[2020-02-28] VITALS (25 sets, daily range): BP systolic 107–147; BP diastolic 61–86
[2020-02-28] MEDS: Metoclopramide 10mg/2ml Inj IVP SCH ×4 (00:43→18:40)
--- NOTE | 2020-02-28 01:59 | Cardiology Progress Note ---
Subjective DATE OF SERVICE: Feb 27, 2020 On vent support - s/p trach today. BP remains stable range No new fever spikes. Per neuro, no seizure activity noted, but remains unresponsive Monitor: sinus tachycardia and sinus rhythm Troponin levels trending down. CXR (02/25/20) unchanged bibasilar infiltrates, and effusions. Objective Last 24 Hour Vital Signs Date Time Temp Pulse Resp B/P (MAP) Pulse Ox O2 Delivery O2 Flow Rate FiO2 02/28/20 01:00 98 20 133/74 (93) 100 02/28/20 00:00 93 02/28/20 00:00 98.2 94 19 131/75 (93) 100 02/28/20 00:00 Mechanical Ventilator 02/28/20 00:00 30 02/27/20 23:45 98 20 30 02/27/20 23:00 94 18 126/78 (94) 100 02/27/20 22:00 88 18 116/67 (83) 99 02/27/20 21:42 98 20 30 02/27/20 21:06 101 125/77 02/27/20 21:00 101 20 126/77 (93) 100 02/27/20 20:00 30 02/27/20 20:00 103 02/27/20 20:00 99.0 103 21 115/63 (80) 100 02/27/20 20:00 Mechanical Ventilator 02/27/20 19:47 103 18 30 02/27/20 19:00 101 20 131/73 (92) 98 02/27/20 18:00 93 19 140/75 (96) 100 02/27/20 17:00 98.4 100 20 138/85 (102) 100 02/27/20 16:56 102 23 30 02/27/20 16:00 Mechanical Ventilator 02/27/20 16:00 30 02/27/20 16:00 94 20 133/77 (95) 100 02/27/20 16:00 98 02/27/20 15:30 85 21 122/67 (85) 100 02/27/20 15:10 87 22 30 02/27/20 15:00 86 21 119/60 (79) 98 02/27/20 14:04 92 23 126/68 (87) 100 02/27/20 13:00 81 20 139/70 (93) 99 8/31/20 12:46 80 20 30 02/27/20 12:00 Mechanical Ventilator 02/27/20 12:00 30 02/27/20 12:00 98.1 79 20 117/64 (81) 97 02/27/20 11:57 72 20 100 02/27/20 11:56 78 20 100 02/27/20 11:53 79 02/27/20 11:50 30 02/27/20 10:44 78 16 30 02/27/20 10:00 82 17 121/67 (85) 100 02/27/20 09:15 81 13 30 02/27/20 09:00 85 14 129/76 (93) 100 02/27/20 09:00 85 13 129/76 (93) 100 02/27/20 08:46 80 136/87 02/27/20 08:00 97.5 80 15 136/87 (103) 100 02/27/20 08:00 Mechanical Ventilator 02/27/20 08:00 30 02/27/20 07:48 80 02/27/20 07:02 80 16 30 02/27/20 07:00 81 17 125/71 (89) 100 02/27/20 06:30 82 14 02/27/20 06:00 77 13 99/57 (71) 99 02/27/20 05:00 84 15 111/69 (83) 100 02/27/20 04:42 82 16 30 02/27/20 04:00 98.4 79 13 112/64 (80) 100 02/27/20 04:00 Mechanical Ventilator 02/27/20 04:00 81 02/27/20 04:00 30 02/27/20 03:00 80 19 128/74 (92) 100 02/27/20 02:40 83 12 30 02/27/20 02:00 77 14 98/60 (73) 100 ROS: no change from my evaluation on 02/14/20 HEENT: Thin secretions ET Tube RHYTHM: ST LUNGS: bilateral rhonchi, trach site clean CARDIAC: normal rate, regular rhythm, normal S1 and S2 ABDOMEN: normal bowel sounds, non tender, soft EXTREMITIES: non-tender, trace edema, other - PICC line Laboratory Tests Test 02/27/20 04:19 White Blood Count 8.2 K/UL (4.8-10.8) Red Blood Count 3.35 M/UL (4.20-5.40) L Hemoglobin 10.5 G/DL (12.0-16.0) L Hematocrit 31.5 % (37.0-47.0) L Mean Corpuscular Volume 94 FL (80-99) Mean Corpuscular Hemoglobin 31.4 PG (27.0-31.0) H Mean Corpuscular Hemoglobin Concent 33.4 G/DL (32.0-36.0) Red Cell Distribution Width 12.0 % (11.6-14.8) Platelet Count 407 K/UL (150-450) Mean Platelet Volume 7.0 FL (6.5-10.1) Neutrophils (%) (Auto) 80.4 % (45.0-75.0) H Lymphocytes (%) (Auto) 10.4 % (20.0-45.0) L Monocytes (%) (Auto) 7.8 % (1.0-10.0) Eosinophils (%) (Auto) 0.1 % (0.0-3.0) Basophils (%) (Auto) 1.3 % (0.0-2.0) Prothrombin Time 13.0 SEC (9.30-11.50) H Prothromb Time International Ratio 1.2 (0.9-1.1) H Activated Partial Thromboplast Time 29 SEC (23-33) Sodium Level 141 MMOL/L (136-145) Potassium Level 3.6 MMOL/L (3.5-5.1) Chloride Level 109 MMOL/L (98-107) H Carbon Dioxide Level 25 MMOL/L (21-32) Anion Gap 7 mmol/L (5-15) Blood Urea Nitrogen 39 mg/dL (7-18) H Creatinine 1.1 MG/DL (0.55-1.30) Estimat Glomerular Filtration Rate > 60 mL/min (>60) Glucose Level 119 MG/DL (74-106) H Calcium Level 8.3 MG/DL (8.5-10.1) L Assessment/Plan Assessment/Plan Respiratory Failure - s/p trach UTI Sepsis with shock Acute myocardial infarction (NSTE) Neurofibromatosis with edema Hypokalemia Hypomagnesemia Hypovolemia Pulmonary Hypertension Aspiration PNA Seizure Disorder Pleural effusions Vent support Anti-sz meds Steroids discont'd anti-plt rx and anticoagulation on hold for trach and subseq PEG. Beta blockade Antimicrobials and resp rx Nutritional suppl Maintenance IVF while NPO Replace electrolytes Marcus Main MD Feb 28, 2020 01:59
[2020-02-28 05:33] LABS: BASOPHILS % (AUTO) 0.8 % (0.0-2.0); EOSINOPHILS % (AUTO) 0.4 % (0.0-3.0); HEMATOCRIT 31.4 % (37.0-47.0); HEMOGLOBIN 10.3 G/DL (12.0-16.0); LYMPHOCYTES % (AUTO) 8.2 % (20.0-45.0); MEAN CORPUSCULAR VOLUME 95 FL (80-99); MONOCYTES % (AUTO) 7.5 % (1.0-10.0); NEUTROPHILS % (AUTO) 83.2 % (45.0-75.0); PLATELET COUNT 380 K/UL (150-450); RED BLOOD COUNT 3.31 M/UL (4.20-5.40); RED CELL DISTRIBUTION WIDTH 13.7 % (11.6-14.8); WHITE BLOOD COUNT 8.4 K/UL (4.8-10.8)
[2020-02-28 05:53] LABS: ALANINE AMINOTRANSFERASE 42 U/L (12-78); ALBUMIN 1.7 G/DL (3.4-5.0); ALBUMIN/GLOBULIN RATIO 0.4 (1.0-2.7); ALKALINE PHOSPHATASE 165 U/L (46-116); ANION GAP 9 mmol/L (5-15); ASPARTATE AMINO TRANSFERASE 42 U/L (15-37); BILIRUBIN,TOTAL 0.4 MG/DL (0.2-1.0); BLOOD UREA NITROGEN 35 mg/dL (7-18); CALCIUM 7.8 MG/DL (8.5-10.1); CARBON DIOXIDE 25 MMOL/L (21-32); CHLORIDE 108 MMOL/L (98-107); POTASSIUM 3.5 MMOL/L (3.5-5.1); SODIUM 142 MMOL/L (136-145)
[2020-02-28] MEDS: Lacri-Lube Opth Oint 3.5gm BOTH EYES SCH ×3 (05:56→22:05)
--- NOTE | 2020-02-28 06:28 | General Progress Note ---
Assessment/Plan Problem List: (1) Seizure disorder ICD Codes: G40.909 - Epilepsy, unspecified, not intractable,without status epilepticus SNOMED: 406921817 (2) Pulmonary hypertension ICD Codes: I27.20 - Pulmonary hypertension, unspecified SNOMED: 76679882 (3) Respiratory failure ICD Codes: J96.90 - Respiratory failure, unspecified, unspecified whether with hypoxia or hypercapnia SNOMED: 534374660 Qualifiers: Qualified Codes: J96.01 - Acute respiratory failure with hypoxia (4) Severe sepsis ICD Codes: A41.9 - Sepsis, unspecified organism; R65.20 - Severe sepsis without septic shock SNOMED: 47465901 (5) NSTEMI (non-ST elevated myocardial infarction) ICD Codes: I21.4 - Non-ST elevation (NSTEMI) myocardial infarction SNOMED: 06578157 (6) Fever ICD Codes: R50.9 - Fever, unspecified SNOMED: 183880223 (7) Dyspnea ICD Codes: R06.00 - Dyspnea, unspecified SNOMED: 759684213 Assessment/Plan: cont vent support resp care/suctioning trach care sz rx monitor for szs neuro checks tube feeds reglan for high residuals eliquis on hold for procedures peg to be scheduled. prn diuresis repalce k pulm htn meds per pulm remains guarded Subjective ROS Limited/Unobtainable: Yes Constitutional: Reports: malaise, weakness HEENT: Reports: no symptoms Cardiovascular: Reports: no symptoms Respiratory: Reports: shortness of breath, sputum Gastrointestinal/Abdominal: Reports: difficulty swallowing Genitourinary: Reports: no symptoms Neurologic/Psychiatric: Reports: pre-existing deficit, seizure Endocrine: Reports: no symptoms Hematologic/Lymphatic: Reports: anemia Allergies: Coded Allergies: PENICILLINS (Verified Allergy, Severe, 08/07/12) FISH CONTAINING PRODUCTS (Verified Allergy, Unknown, 06/02/18) Uncoded Allergies: seafood (Allergy, Unknown, 06/02/18) All Systems: reviewed and negative except above Subjective s/p uncomplicated trach. still lethargic and withdrawn. poorly responsive. has some spont movement of the upper ext and eyes. does not follow commands. no reports of szs. low k on labs. Objective Last 24 Hour Vital Signs Date Time Temp Pulse Resp B/P (MAP) Pulse Ox O2 Delivery O2 Flow Rate FiO2 9/1/20 06:00 101 20 132/73 (92) 100 02/28/20 05:18 93 19 30 02/28/20 05:00 93 19 121/61 (81) 100 02/28/20 04:00 Mechanical Ventilator 02/28/20 04:00 30 02/28/20 04:00 94 20 115/70 (85) 100 02/28/20 04:00 96 02/28/20 03:49 93 22 30 02/28/20 03:00 100 20 126/67 (86) 100 02/28/20 02:00 92 25 121/69 (86) 100 02/28/20 01:35 95 19 30 02/28/20 01:00 98 20 133/74 (93) 100 02/28/20 00:00 93 02/28/20 00:00 98.2 94 19 131/75 (93) 100 02/28/20 00:00 Mechanical Ventilator 02/28/20 00:00 30 02/27/20 23:45 98 20 30 02/27/20 23:00 94 18 126/78 (94) 100 02/27/20 22:00 88 18 116/67 (83) 99 02/27/20 21:42 98 20 30 02/27/20 21:06 101 125/77 02/27/20 21:00 101 20 126/77 (93) 100 02/27/20 20:00 30 02/27/20 20:00 103 02/27/20 20:00 99.0 103 21 115/63 (80) 100 02/27/20 20:00 Mechanical Ventilator 02/27/20 19:47 103 18 30 02/27/20 19:00 101 20 131/73 (92) 98 02/27/20 18:00 93 19 140/75 (96) 100 02/27/20 17:00 98.4 100 20 138/85 (102) 100 02/27/20 16:56 102 23 30 02/27/20 16:00 Mechanical Ventilator 02/27/20 16:00 30 02/27/20 16:00 94 20 133/77 (95) 100 02/27/20 16:00 98 02/27/20 15:30 85 21 122/67 (85) 100 02/27/20 15:10 87 22 30 02/27/20 15:00 86 21 119/60 (79) 98 02/27/20 14:04 92 23 126/68 (87) 100 02/27/20 13:00 81 20 139/70 (93) 99 02/27/20 12:46 80 20 30 02/27/20 12:00 Mechanical Ventilator 02/27/20 12:00 30 02/27/20 12:00 98.1 79 20 117/64 (81) 97 02/27/20 11:57 72 20 100 02/27/20 11:56 78 20 100 02/27/20 11:53 79 02/27/20 11:50 30 02/27/20 10:44 78 16 30 02/27/20 10:00 82 17 121/67 (85) 100 02/27/20 09:15 81 13 30 02/27/20 09:00 85 14 129/76 (93) 100 02/27/20 09:00 85 13 129/76 (93) 100 02/27/20 08:46 80 136/87 02/27/20 08:00 97.5 80 15 136/87 (103) 100 02/27/20 08:00 Mechanical Ventilator 02/27/20 08:00 30 02/27/20 07:48 80 02/27/20 07:02 80 16 30 02/27/20 07:00 81 17 125/71 (89) 100 02/27/20 06:30 82 14 Intake and Output 02/27/20 02/28/20 19:00 07:00 Intake Total 823.75 ml 1255 ml Output Total 1125 ml 1390 ml Balance -301.25 ml -135 ml IV Total 823.75 ml 925 ml Tube Feeding 330 ml Output Urine Total 1125 ml 1390 ml # Bowel Movements 2 Laboratory Tests 02/28/20 04:00: White Blood Count 8.4, Red Blood Count 3.31L, Hemoglobin 10.3L, Hematocrit 31.4L , Mean Corpuscular Volume 95, Mean Corpuscular Hemoglobin 31.0, Mean Corpuscular Hemoglobin Concent 32.7, Red Cell Distribution Width 13.7, Platelet Count 380, Mean Platelet Volume 7.1, Neutrophils (%) (Auto) 83.2H, Lymphocytes ( %) (Auto) 8.2L, Monocytes (%) (Auto) 7.5, Eosinophils (%) (Auto) 0.4, Basophils (%) (Auto) 0.8, Sodium Level 142, Potassium Level 3.5, Chloride Level 108H, Carbon Dioxide Level 25, Anion Gap 9, Blood Urea Nitrogen 35H, Creatinine [ Pending], Estimat Glomerular Filtration Rate [Pending], Glucose Level 125H, Calcium Level 7.8L, Total Bilirubin 0.4, Aspartate Amino Transf (AST/SGOT) 42H, Alanine Aminotransferase (ALT/SGPT) 42, Alkaline Phosphatase 165H, Total Protein 6.0L, Albumin 1.7L, Globulin 4.3, Albumin/Globulin Ratio 0.4L Height (Feet): 5 Height (Inches): 5.00 Weight (Pounds): 150 Objective General Appearance: WD/WN, confused EENT: PERRL/EOMI, normal ENT inspection Neck: non-tender, normal alignment. trach c/d/i Cardiovascular: normal peripheral pulses, normal rate Respiratory/Chest: chest wall non-tender, lungs clear, normal breath sounds Abdomen: normal bowel sounds, non tender Edema: no edema noted Arm (L), no edema noted Arm (R) Neurologic: disoriented, unresponsive Skin: normal pigmentation Lymphatic: normal anterior cervical (L), normal anterior cervical (R) Liborio Dugan MD Feb 28, 2020 06:27
[2020-02-28 07:40] LABS: CREATININE 0.9 MG/DL (0.55-1.30)
--- NOTE | 2020-02-28 07:55 | Critical Care Progress Note ---
Assessment/Plan Assessment/Plan respiratory failure s/p trach pneumonia improved by CXR pulmonary hypertension elevated troponin possible NSTEMI paraplegia hypoxemia seizure history brain masses, chronic moderate PCM PLAN care noted- with family; trach done awaiting GT IV antibiotics noted imaging noted respiratory care and nursing care noted Ventilatory support on- unable to wean mental status remains poor and not improved monitor acid base and adjust supportive care suction as needed monitor heart rate seizure meds- as is oxygen therapy prognosis same nutrition off load and monitor skin update family as to care and placement will need subacute care when stable and trach and GT in medications/laboratory data/nursing notes/ICU care reviewed in detail note reviewed and edited care discussed with RN and RT ICU time spent >40 minutes Critical Care - Subjective Interval Events: s/p trach care noted ICU care reviewed no distress NGT in place ROS Limited/Unobtainable: Yes Condition: critical EKG Rhythm: Sinus Rhythm Residuals: minimal Tube Feeding Tolerated: yes I&O: Intake and Output 02/27/20 02/28/20 19:00 07:00 Intake Total 823.75 ml 1325 ml Output Total 1125 ml 1440 ml Balance -301.25 ml -115 ml IV Total 823.75 ml 965 ml Tube Feeding 360 ml Output Urine Total 1125 ml 1440 ml # Bowel Movements 2 Critical Care - Objective ET-Tube: 7.0 ET Position: 25 Last 24 Hour Vital Signs Date Time Temp Pulse Resp B/P (MAP) Pulse Ox O2 Delivery O2 Flow Rate FiO2 02/28/20 07:00 103 21 120/70 (87) 100 02/28/20 06:00 101 20 132/73 (92) 100 02/28/20 05:18 93 19 30 02/28/20 05:00 93 19 121/61 (81) 100 02/28/20 04:00 Mechanical Ventilator 02/28/20 04:00 30 02/28/20 04:00 94 20 115/70 (85) 100 02/28/20 04:00 96 02/28/20 03:49 93 22 30 02/28/20 03:00 100 20 126/67 (86) 100 02/28/20 02:00 92 25 121/69 (86) 100 02/28/20 01:35 95 19 30 02/28/20 01:00 98 20 133/74 (93) 100 02/28/20 00:00 93 02/28/20 00:00 98.2 94 19 131/75 (93) 100 02/28/20 00:00 Mechanical Ventilator 02/28/20 00:00 30 02/27/20 23:45 98 20 30 02/27/20 23:00 94 18 126/78 (94) 100 02/27/20 22:00 88 18 116/67 (83) 99 02/27/20 21:42 98 20 30 02/27/20 21:06 101 125/77 02/27/20 21:00 101 20 126/77 (93) 100 02/27/20 20:00 30 02/27/20 20:00 103 02/27/20 20:00 99.0 103 21 115/63 (80) 100 02/27/20 20:00 Mechanical Ventilator 02/27/20 19:47 103 18 30 02/27/20 19:00 101 20 131/73 (92) 98 02/27/20 18:00 93 19 140/75 (96) 100 02/27/20 17:00 98.4 100 20 138/85 (102) 100 02/27/20 16:56 102 23 30 02/27/20 16:00 Mechanical Ventilator 02/27/20 16:00 30 02/27/20 16:00 94 20 133/77 (95) 100 02/27/20 16:00 98 02/27/20 15:30 85 21 122/67 (85) 100 02/27/20 15:10 87 22 30 02/27/20 15:00 86 21 119/60 (79) 98 02/27/20 14:04 92 23 126/68 (87) 100 02/27/20 13:00 81 20 139/70 (93) 99 02/27/20 12:46 80 20 30 02/27/20 12:00 Mechanical Ventilator 02/27/20 12:00 30 02/27/20 12:00 98.1 79 20 117/64 (81) 97 02/27/20 11:57 72 20 100 02/27/20 11:56 78 20 100 02/27/20 11:53 79 02/27/20 11:50 30 02/27/20 10:44 78 16 30 02/27/20 10:00 82 17 121/67 (85) 100 02/27/20 09:15 81 13 30 02/27/20 09:00 85 14 129/76 (93) 100 02/27/20 09:00 85 13 129/76 (93) 100 02/27/20 08:46 80 136/87 02/27/20 08:00 97.5 80 15 136/87 (103) 100 02/27/20 08:00 Mechanical Ventilator 02/27/20 08:00 30 Labs: Labs Test 02/26/20 16:50 02/27/20 04:19 02/28/20 04:00 White Blood Count 9.2 K/UL (4.8-10.8) 8.2 K/UL (4.8-10.8) 8.4 K/UL (4.8-10.8) Red Blood Count 3.39 M/UL (4.20-5.40) 3.35 M/UL (4.20-5.40) 3.31 M/UL (4.20-5.40) Hemoglobin 10.7 G/DL (12.0-16.0) 10.5 G/DL (12.0-16.0) 10.3 G/DL (12.0-16.0) Hematocrit 32.8 % (37.0-47.0) 31.5 % (37.0-47.0) 31.4 % (37.0-47.0) Mean Corpuscular Volume 97 FL (80-99) 94 FL (80-99) 95 FL (80-99) Mean Corpuscular Hemoglobin 31.6 PG (27.0-31.0) 31.4 PG (27.0-31.0) 31.0 PG (27.0-31.0) Mean Corpuscular Hemoglobin Concent 32.7 G/DL (32.0-36.0) 33.4 G/DL (32.0-36.0) 32.7 G/DL (32.0-36.0) Red Cell Distribution Width 13.4 % (11.6-14.8) 12.0 % (11.6-14.8) 13.7 % (11.6-14.8) Platelet Count 431 K/UL (150-450) 407 K/UL (150-450) 380 K/UL (150-450) Mean Platelet Volume 8.0 FL (6.5-10.1) 7.0 FL (6.5-10.1) 7.1 FL (6.5-10.1) Neutrophils (%) (Auto) 88.1 % (45.0-75.0) 80.4 % (45.0-75.0) 83.2 % (45.0-75.0) Lymphocytes (%) (Auto) 6.0 % (20.0-45.0) 10.4 % (20.0-45.0) 8.2 % (20.0-45.0) Monocytes (%) (Auto) 4.9 % (1.0-10.0) 7.8 % (1.0-10.0) 7.5 % (1.0-10.0) Eosinophils (%) (Auto) 0.1 % (0.0-3.0) 0.1 % (0.0-3.0) 0.4 % (0.0-3.0) Basophils (%) (Auto) 0.9 % (0.0-2.0) 1.3 % (0.0-2.0) 0.8 % (0.0-2.0) Sodium Level 138 MMOL/L (136-145) 141 MMOL/L (136-145) 142 MMOL/L (136-145) Potassium Level 3.6 MMOL/L (3.5-5.1) 3.6 MMOL/L (3.5-5.1) 3.5 MMOL/L (3.5-5.1) Chloride Level 105 MMOL/L (98-107) 109 MMOL/L (98-107) 108 MMOL/L (98-107) Carbon Dioxide Level 23 MMOL/L (21-32) 25 MMOL/L (21-32) 25 MMOL/L (21-32) Anion Gap 10 mmol/L (5-15) 7 mmol/L (5-15) 9 mmol/L (5-15) Blood Urea Nitrogen 41 mg/dL (7-18) 39 mg/dL (7-18) 35 mg/dL (7-18) Creatinine 1.1 MG/DL (0.55-1.30) 1.1 MG/DL (0.55-1.30) 0.9 MG/DL (0.55-1.30) Estimat Glomerular Filtration Rate > 60 mL/min (>60) > 60 mL/min (>60) > 60 mL/min (>60) Glucose Level 143 MG/DL (74-106) 119 MG/DL (74-106) 125 MG/DL (74-106) Calcium Level 8.6 MG/DL (8.5-10.1) 8.3 MG/DL (8.5-10.1) 7.8 MG/DL (8.5-10.1) Total Bilirubin 0.3 MG/DL (0.2-1.0) 0.4 MG/DL (0.2-1.0) Aspartate Amino Transf (AST/SGOT) 49 U/L (15-37) 42 U/L (15-37) Alanine Aminotransferase (ALT/SGPT) 60 U/L (12-78) 42 U/L (12-78) Alkaline Phosphatase 179 U/L (46-116) 165 U/L (46-116) Total Protein 6.7 G/DL (6.4-8.2) 6.0 G/DL (6.4-8.2) Albumin 1.9 G/DL (3.4-5.0) 1.7 G/DL (3.4-5.0) Globulin 4.8 g/dL 4.3 g/dL Albumin/Globulin Ratio 0.4 (1.0-2.7) 0.4 (1.0-2.7) Prothrombin Time 13.0 SEC (9.30-11.50) Prothromb Time International Ratio 1.2 (0.9-1.1) Activated Partial Thromboplast Time 29 SEC (23-33) Objective: WDWN NAD on vent, trach in place reduced breath sounds bilaterally without rhonchi or wheeze [id number] without MRG NABS nontender no HSM no CCE nonfocal poor LOC reduced ROM skin noted reviewed and edited feeding tube in place Juan Snow MD Feb 28, 2020 07:55
[2020-02-28] MEDS ORDERED: Tubing IV Secondary IV ONE (08:21)
[2020-02-28] MEDS ORDERED: NS 275ml ONE (08:21)
[2020-02-28] MEDS: Revatio 20mg tab ORAL SCH ×3 (08:30→17:57)
[2020-02-28] MEDS: carBAMazepine 200mg tab NG SCH ×3 (08:31→17:57)
[2020-02-28] MEDS: Heparin 5000 units/ml inj SUBQ SCH ×3 (08:32→20:46)
[2020-02-28] MEDS: levETIRAcetam 1,000mg/NS100ml 100 ML IVPB SCH ×2 (08:34→20:47)
[2020-02-28] MEDS: OPSUMIT 10 MG ORAL SCH (08:35)
[2020-02-28] MEDS: SELEXIPAG ORAL SCH ×2 (08:36→20:46)
[2020-02-28] MEDS ORDERED: Vancomycin 500 MG in D5W 110 ML IVPB SCH (10:00)
--- NOTE | 2020-02-28 11:12 | Infectious Diseases Prog Note ---
Assessment/Plan Assessment/Plan antibiotics : none A 1. acenitobacter pneumonia s/p rx COVID 19 negative 2. respiratory failure s/p tracheostomy 3. neurofibromatosis 4. seizures 5. pulmonary hypertension 6. + blood cultures with coag neg staph likely contaminated P 1. continue off antibiotics 2. will follow up cultures Subjective ROS Limited/Unobtainable: Yes Allergies: Coded Allergies: PENICILLINS (Verified Allergy, Severe, 08/07/12) FISH CONTAINING PRODUCTS (Verified Allergy, Unknown, 06/02/18) Uncoded Allergies: seafood (Allergy, Unknown, 06/02/18) Objective Last 24 Hour Vital Signs Date Time Temp Pulse Resp B/P (MAP) Pulse Ox O2 Delivery O2 Flow Rate FiO2 02/28/20 10:43 93 18 30 02/28/20 10:00 95 18 124/71 (88) 100 02/28/20 09:06 96 19 30 02/28/20 09:00 99 17 118/75 (89) 100 02/28/20 08:32 98 124/62 02/28/20 08:00 30 02/28/20 08:00 Mechanical Ventilator 02/28/20 08:00 100.0 98 19 124/62 (82) 100 02/28/20 08:00 99 02/28/20 07:04 103 20 30 02/28/20 07:00 103 21 120/70 (87) 100 02/28/20 06:00 101 20 132/73 (92) 100 02/28/20 05:18 93 19 30 02/28/20 05:00 93 19 121/61 (81) 100 02/28/20 04:00 Mechanical Ventilator 02/28/20 04:00 30 02/28/20 04:00 94 20 115/70 (85) 100 02/28/20 04:00 96 02/28/20 03:49 93 22 30 02/28/20 03:00 100 20 126/67 (86) 100 02/28/20 02:00 92 25 121/69 (86) 100 02/28/20 01:35 95 19 30 02/28/20 01:00 98 20 133/74 (93) 100 02/28/20 00:00 93 02/28/20 00:00 98.2 94 19 131/75 (93) 100 02/28/20 00:00 Mechanical Ventilator 02/28/20 00:00 30 02/27/20 23:45 98 20 30 02/27/20 23:00 94 18 126/78 (94) 100 02/27/20 22:00 88 18 116/67 (83) 99 02/27/20 21:42 98 20 30 02/27/20 21:06 101 125/77 02/27/20 21:00 101 20 126/77 (93) 100 02/27/20 20:00 30 02/27/20 20:00 103 02/27/20 20:00 99.0 103 21 115/63 (80) 100 02/27/20 20:00 Mechanical Ventilator 02/27/20 19:47 103 18 30 02/27/20 19:00 101 20 131/73 (92) 98 02/27/20 18:00 93 19 140/75 (96) 100 02/27/20 17:00 98.4 100 20 138/85 (102) 100 02/27/20 16:56 102 23 30 02/27/20 16:00 Mechanical Ventilator 02/27/20 16:00 30 02/27/20 16:00 94 20 133/77 (95) 100 02/27/20 16:00 98 02/27/20 15:30 85 21 122/67 (85) 100 02/27/20 15:10 87 22 30 02/27/20 15:00 86 21 119/60 (79) 98 02/27/20 14:04 92 23 126/68 (87) 100 02/27/20 13:00 81 20 139/70 (93) 99 02/27/20 12:46 80 20 30 02/27/20 12:00 Mechanical Ventilator 02/27/20 12:00 30 02/27/20 12:00 98.1 79 20 117/64 (81) 97 02/27/20 11:57 72 20 100 02/27/20 11:56 78 20 100 02/27/20 11:53 79 02/27/20 11:50 30 Height (Feet): 5 Height (Inches): 5.00 Weight (Pounds): 150 HEENT: status post trach Respiratory/Chest: lungs clear Cardiovascular: normal rate, regular rhythm, no gallop/murmur Abdomen: soft, non tender Extremities: no edema, other - right arm PICC Laboratory Tests Test 02/28/20 04:00 White Blood Count 8.4 K/UL (4.8-10.8) Red Blood Count 3.31 M/UL (4.20-5.40) L Hemoglobin 10.3 G/DL (12.0-16.0) L Hematocrit 31.4 % (37.0-47.0) L Mean Corpuscular Volume 95 FL (80-99) Mean Corpuscular Hemoglobin 31.0 PG (27.0-31.0) Mean Corpuscular Hemoglobin Concent 32.7 G/DL (32.0-36.0) Red Cell Distribution Width 13.7 % (11.6-14.8) Platelet Count 380 K/UL (150-450) Mean Platelet Volume 7.1 FL (6.5-10.1) Neutrophils (%) (Auto) 83.2 % (45.0-75.0) H Lymphocytes (%) (Auto) 8.2 % (20.0-45.0) L Monocytes (%) (Auto) 7.5 % (1.0-10.0) Eosinophils (%) (Auto) 0.4 % (0.0-3.0) Basophils (%) (Auto) 0.8 % (0.0-2.0) Sodium Level 142 MMOL/L (136-145) Potassium Level 3.5 MMOL/L (3.5-5.1) Chloride Level 108 MMOL/L (98-107) H Carbon Dioxide Level 25 MMOL/L (21-32) Anion Gap 9 mmol/L (5-15) Blood Urea Nitrogen 35 mg/dL (7-18) H Creatinine 0.9 MG/DL (0.55-1.30) Estimat Glomerular Filtration Rate > 60 mL/min (>60) Glucose Level 125 MG/DL (74-106) H Calcium Level 7.8 MG/DL (8.5-10.1) L Total Bilirubin 0.4 MG/DL (0.2-1.0) Aspartate Amino Transf (AST/SGOT) 42 U/L (15-37) H Alanine Aminotransferase (ALT/SGPT) 42 U/L (12-78) Alkaline Phosphatase 165 U/L (46-116) H Total Protein 6.0 G/DL (6.4-8.2) L Albumin 1.7 G/DL (3.4-5.0) L Globulin 4.3 g/dL Albumin/Globulin Ratio 0.4 (1.0-2.7) L Current Medications Medications (Trade) Dose Ordered Sig/Brian Route PRN Reason Start Time Stop Time Status Last Admin Dose Admin Acetaminophen (Tylenol) 650 mg Q4H PRN NG Mild Pain (Pain Scale 1-3) 02/14/20 03:00 03/15/20 02:59 02/17/20 05:28 Acetaminophen (Tylenol) 650 mg Q4H PRN NG Temp >100.5 02/14/20 03:00 03/15/20 02:59 02/19/20 21:04 Al Hydroxide/Mg Hydroxide (Mylanta) 30 ml Q4H PRN ORAL Dyspepsia 02/14/20 03:00 03/15/20 02:59 Artificial Tears (Lacri-Lube) 1 applic EVERY 8 HOURS BOTH EYES 02/27/20 14:00 03/18/20 09:29 02/28/20 05:56 Carbamazepine (TEGretol) 200 mg TID NG 02/14/20 09:00 03/15/20 08:59 02/28/20 08:31 Chlorhexidine Gluconate (Gricelda-Hex 2%) 1 applic DAILY@2000 TOPIC 02/26/20 20:00 05/26/20 19:59 02/27/20 20:02 Dextrose/ Electrolytes 1,000 ml @ 75 mls/hr [id number] IV 02/27/20 00:00 03/28/20 00:00 02/28/20 06:22 Furosemide (Lasix) 40 mg DAILY IV 02/24/20 22:15 03/25/20 22:14 02/28/20 08:31 Gabapentin (Neurontin) 100 mg THREE TIMES A DAY ORAL 02/14/20 09:00 03/15/20 08:59 02/28/20 08:30 Heparin Sodium (Porcine) (Heparin 5000 units/ml) 5,000 units EVERY 12 HOURS SUBQ 02/27/20 21:00 04/12/20 20:59 Heparin Sodium/ Sodium Chloride (Heparin 1000 units/500ml Premix) 1,000 unit ONCE PRN IV for picc line placement 02/26/20 12:45 02/28/20 12:44 Lansoprazole (Prevacid) 30 mg DAILY NG 02/14/20 09:00 03/15/20 08:59 02/28/20 08:30 Levetiracetam 100 ml @ 400 mls/hr Q12HR IVPB 02/19/20 09:00 05/19/20 08:59 02/28/20 08:34 Lidocaine HCl (Xylocaine 1% 30ml) 30 ml ONCE PRN INJ for picc line placement 02/26/20 12:45 02/28/20 12:44 Magnesium Hydroxide (Mom) 30 ml TID PRN NG Constipation 02/26/20 19:00 03/27/20 18:59 Metoclopramide HCl (Reglan) 5 mg Q6H IVP 02/25/20 13:00 03/26/20 12:59 02/28/20 06:36 Metoclopramide HCl (Reglan) 5 mg Q6H PRN IVP Nausea & Vomiting 02/19/20 08:15 03/20/20 08:14 02/25/20 05:09 Metoprolol Tartrate (Lopressor) 25 mg Q12HR ORAL 02/15/20 21:00 05/15/20 20:59 02/28/20 08:32 Patient Own Medication (Patient's Own Med) 1 ea DAILY ORAL 02/14/20 13:00 03/15/20 12:59 02/28/20 08:35 Patient Own Medication (Patient's Own Med) 1 ea TID ORAL 02/14/20 13:00 02/29/20 12:59 02/28/20 08:36 Patient Own Medication (Patient's Own Med) 1 ea TID ORAL 02/29/20 13:00 03/30/20 12:59 Sildenafil Citrate (Revatio) 20 mg TID ORAL 02/14/20 09:00 05/14/20 08:59 02/28/20 08:30 Maci Deleon MD Feb 28, 2020 11:12
--- NOTE | 2020-02-28 15:53 | Surgery Progress Note ---
Surgery Progress Note Subjective Procedure Performed tracheostomy Additional Comments doing well post op eyes open comfortable trach stable Objective Last 24 Hour Vital Signs Date Time Temp Pulse Resp B/P (MAP) Pulse Ox O2 Delivery O2 Flow Rate FiO2 02/28/20 15:08 87 17 30 02/28/20 15:00 85 17 129/71 (90) 100 02/28/20 14:00 88 18 135/75 (95) 100 02/28/20 14:00 89 18 135/75 (95) 02/28/20 13:00 84 17 107/65 (79) 100 02/28/20 12:39 87 17 30 02/28/20 12:00 Mechanical Ventilator 02/28/20 12:00 99.8 89 18 133/63 (86) 02/28/20 12:00 91 02/28/20 12:00 30 02/28/20 11:00 94 19 125/76 (92) 02/28/20 10:43 93 18 30 02/28/20 10:00 95 18 124/71 (88) 100 02/28/20 09:06 96 19 30 02/28/20 09:00 99 17 118/75 (89) 100 02/28/20 08:32 98 124/62 02/28/20 08:00 30 02/28/20 08:00 Mechanical Ventilator 02/28/20 08:00 100.0 98 19 124/62 (82) 100 02/28/20 08:00 99 02/28/20 07:04 103 20 30 02/28/20 07:00 103 21 120/70 (87) 100 02/28/20 06:00 101 20 132/73 (92) 100 02/28/20 05:18 93 19 30 02/28/20 05:00 93 19 121/61 (81) 100 02/28/20 04:00 Mechanical Ventilator 02/28/20 04:00 30 02/28/20 04:00 94 20 115/70 (85) 100 02/28/20 04:00 96 02/28/20 03:49 93 22 30 02/28/20 03:00 100 20 126/67 (86) 100 02/28/20 02:00 92 25 121/69 (86) 100 02/28/20 01:35 95 19 30 02/28/20 01:00 98 20 133/74 (93) 100 02/28/20 00:00 93 02/28/20 00:00 98.2 94 19 131/75 (93) 100 02/28/20 00:00 Mechanical Ventilator 02/28/20 00:00 30 02/27/20 23:45 98 20 30 02/27/20 23:00 94 18 126/78 (94) 100 02/27/20 22:00 88 18 116/67 (83) 99 02/27/20 21:42 98 20 30 02/27/20 21:06 101 125/77 02/27/20 21:00 101 20 126/77 (93) 100 02/27/20 20:00 30 02/27/20 20:00 103 02/27/20 20:00 99.0 103 21 115/63 (80) 100 02/27/20 20:00 Mechanical Ventilator 02/27/20 19:47 103 18 30 02/27/20 19:00 101 20 131/73 (92) 98 02/27/20 18:00 93 19 140/75 (96) 100 02/27/20 17:00 98.4 100 20 138/85 (102) 100 02/27/20 16:56 102 23 30 02/27/20 16:00 Mechanical Ventilator 02/27/20 16:00 30 02/27/20 16:00 94 20 133/77 (95) 100 02/27/20 16:00 98 I&O Intake and Output 02/27/20 02/28/20 19:00 07:00 Intake Total 823.75 ml 1325 ml Output Total 1125 ml 1440 ml Balance -301.25 ml -115 ml IV Total 823.75 ml 965 ml Tube Feeding 360 ml Output Urine Total 1125 ml 1440 ml # Bowel Movements 2 Dressing: dry Wound: clean Cardiovascular: RSR Respiratory: clear, decreased breath sounds Abdomen: soft, non-tender, present bowel sounds Extremities: no edema, no tenderness, no cyanosis Laboratory Tests Test 02/28/20 04:00 White Blood Count 8.4 K/UL (4.8-10.8) Red Blood Count 3.31 M/UL (4.20-5.40) L Hemoglobin 10.3 G/DL (12.0-16.0) L Hematocrit 31.4 % (37.0-47.0) L Mean Corpuscular Volume 95 FL (80-99) Mean Corpuscular Hemoglobin 31.0 PG (27.0-31.0) Mean Corpuscular Hemoglobin Concent 32.7 G/DL (32.0-36.0) Red Cell Distribution Width 13.7 % (11.6-14.8) Platelet Count 380 K/UL (150-450) Mean Platelet Volume 7.1 FL (6.5-10.1) Neutrophils (%) (Auto) 83.2 % (45.0-75.0) H Lymphocytes (%) (Auto) 8.2 % (20.0-45.0) L Monocytes (%) (Auto) 7.5 % (1.0-10.0) Eosinophils (%) (Auto) 0.4 % (0.0-3.0) Basophils (%) (Auto) 0.8 % (0.0-2.0) Sodium Level 142 MMOL/L (136-145) Potassium Level 3.5 MMOL/L (3.5-5.1) Chloride Level 108 MMOL/L (98-107) H Carbon Dioxide Level 25 MMOL/L (21-32) Anion Gap 9 mmol/L (5-15) Blood Urea Nitrogen 35 mg/dL (7-18) H Creatinine 0.9 MG/DL (0.55-1.30) Estimat Glomerular Filtration Rate > 60 mL/min (>60) Glucose Level 125 MG/DL (74-106) H Calcium Level 7.8 MG/DL (8.5-10.1) L Total Bilirubin 0.4 MG/DL (0.2-1.0) Aspartate Amino Transf (AST/SGOT) 42 U/L (15-37) H Alanine Aminotransferase (ALT/SGPT) 42 U/L (12-78) Alkaline Phosphatase 165 U/L (46-116) H Total Protein 6.0 G/DL (6.4-8.2) L Albumin 1.7 G/DL (3.4-5.0) L Globulin 4.3 g/dL Albumin/Globulin Ratio 0.4 (1.0-2.7) L Plan Problems: (1) Respiratory failure Assessment & Plan: Respiratory insufficiency requiring prolonged ventilatory support currently remains on vent support unable to wean safely. Patient with altered level consciousness this time not responsive. Patient is a candidate for a tracheostomy. Pulmonology discussed with the family and they have agreed to proceed. Will optimize and plan for surgical intervention soon. Tracheostomy indicated and recommended. Thank you allowing me to participate in patient's care will follow with recommendations s/p trach improving labs noted trach okay weaning vent Bassam Hui Feb 28, 2020 15:53
--- NOTE | 2020-02-28 18:12 | Neurology Progress Note ---
Interim History Interim History Interim History Ms. Roseann Srinivasan is a 49-year-old, black lady, of unknown handedness, who does have a past history of neurofibromatosis, a seizure disorder, pulmonary hypertension, deafness of an unknown degree, and visual problems of an unknown degree. She was hospitalized on 02/13/2020 for an altered mental state preceded by failure to thrive, fever and possibly shaking chills, and a global decline in function. It was felt that she may have a urinary tract infection. She was intubated and artificially ventilated, started on intravenous fluids, and antibiotics, and was observed in the ICU. She does have a history of seizures but has not been observed to have any seizures during her hospitalization. She had her tracheostomy yesterday and it was uneventful. She seems to be minimally responsive today. She moves her eyes and head towards sound stimuli. She did close and then open her eyes on command on one occasion but that could not be duplicated. There has been no significant change in her medical. It is still unclear as to what exactly her baseline neurological function was prior to this admission. Review of Systems Neuro Review of Systems Unable to obtain. Objective Physical Exam Last Vital Signs Date Time Temp Pulse Resp B/P (MAP) Pulse Ox O2 Delivery O2 Flow Rate FiO2 02/28/20 17:00 87 17 132/72 (92) 100 02/28/20 16:34 30 02/28/20 16:00 Mechanical Ventilator 02/28/20 12:00 99.8 Laboratory Tests Test 02/28/20 04:00 White Blood Count 8.4 K/UL (4.8-10.8) Red Blood Count 3.31 M/UL (4.20-5.40) L Hemoglobin 10.3 G/DL (12.0-16.0) L Hematocrit 31.4 % (37.0-47.0) L Mean Corpuscular Volume 95 FL (80-99) Mean Corpuscular Hemoglobin 31.0 PG (27.0-31.0) Mean Corpuscular Hemoglobin Concent 32.7 G/DL (32.0-36.0) Red Cell Distribution Width 13.7 % (11.6-14.8) Platelet Count 380 K/UL (150-450) Mean Platelet Volume 7.1 FL (6.5-10.1) Neutrophils (%) (Auto) 83.2 % (45.0-75.0) H Lymphocytes (%) (Auto) 8.2 % (20.0-45.0) L Monocytes (%) (Auto) 7.5 % (1.0-10.0) Eosinophils (%) (Auto) 0.4 % (0.0-3.0) Basophils (%) (Auto) 0.8 % (0.0-2.0) Sodium Level 142 MMOL/L (136-145) Potassium Level 3.5 MMOL/L (3.5-5.1) Chloride Level 108 MMOL/L (98-107) H Carbon Dioxide Level 25 MMOL/L (21-32) Anion Gap 9 mmol/L (5-15) Blood Urea Nitrogen 35 mg/dL (7-18) H Creatinine 0.9 MG/DL (0.55-1.30) Estimat Glomerular Filtration Rate > 60 mL/min (>60) Glucose Level 125 MG/DL (74-106) H Calcium Level 7.8 MG/DL (8.5-10.1) L Total Bilirubin 0.4 MG/DL (0.2-1.0) Aspartate Amino Transf (AST/SGOT) 42 U/L (15-37) H Alanine Aminotransferase (ALT/SGPT) 42 U/L (12-78) Alkaline Phosphatase 165 U/L (46-116) H Total Protein 6.0 G/DL (6.4-8.2) L Albumin 1.7 G/DL (3.4-5.0) L Globulin 4.3 g/dL Albumin/Globulin Ratio 0.4 (1.0-2.7) L Neurologic Exam Objective PHYSICAL EXAMINATION: GENERAL: She is a well-developed, relatively well-nourished, black lady, lying in an intensive care unit bed, connected to ventilator via an endotracheal tube. HEAD: Normocephalic and atraumatic. NECK: No neck rigidity was observed. EENT: Her chemosis was significantly better. SPINE: Cervical, thoracic and lumbosacral spine revealed no tenderness or paraspinal muscle spasm. NEUROLOGIC EXAMINATION: MENTAL STATUS EXAMINATION: She opened her eyes on vocal stimulation. She also turned her eyes and head towards the direction of sound. She closed and then open her eyes on command. However she could only do that once and it could not be duplicated. She responded to deep pain with minimal nonpurposeful withdrawal in both upper extremities and no response in both lower extremities. Further mental status testing was impossible. SPEECH: Could not be tested. LANGUAGE: Could not be tested. CRANIAL NERVE EXAMINATION: II: She did not blink to threat. III, IV, : External ocular movements were present but restricted on oculocephalic maneuvers. The pupils were 3 mm in diameter equal, round, regular and did not react to light. V & VII: The corneal reflexes were absent bilaterally. However she moved her head when the cornea was stimulated. VIII: She did respond to sounds with eye opening. She had no nystagmus. IX & X: The gag reflex was not tested. XI: The sternocleidomastoids and trapezii did not function. XII: The tongue could not be examined properly. MOTOR SYSTEM: The tone was diminished in all 4 extremities. Examination of muscle mass revealed generalized muscle wasting. Examination of power was impossible to perform because even on applying deep painful stimuli the only response seen was nonpurposeful withdrawal in both upper extremities. SENSORY EXAMINATION: She only responded to deep pain with nonpurposeful withdrawal in both upper extremities. REFLEXES: 0 at the biceps, triceps, brachioradialis, knees and ankles. The plantar responses were mute bilaterally. COORDINATION, STANCE & GAIT: Not be tested. ABNORMAL MOVEMENTS: None Impression/Recommendations Diagnostic Impression DIAGNOSTIC IMPRESSION: 1. Ms. Roseann Srinivasan is a 49-year-old, black lady, of unknown handedness, who does have a past history of neurofibromatosis, a seizure disorder, pulmonary hypertension, deafness of an unknown degree, and visual problems of an unknown degree. 2. She was hospitalized on 02/13/2020 and altered mental state preceded by failure to thrive, fever and possibly shaking chills, and a global decline in function. It was felt that she may have urinary tract infection. She was intubated and artificially ventilated, started on intravenous fluids, and antibiotics, and was observed in the ICU. 3. She does have a history of seizures but has not been observed to have any seizures during hospitalization. 4. An EEG performed on 02/18/2020 revealed: An encephalopathy of a moderate degree with a toxic metabolic component. Right temporal focal dysfunction. A right temporal epileptogenic focus with phase reversals in the mid temporal region. 5. She had her tracheostomy on 02/27/2020 and it was uneventful. 6. She seems to be minimally responsive today. She moves her eyes and head towards sound stimuli. She did close and then open her eyes on command on one occasion but that could not be duplicated. There has been no significant change in her medical. It is still unclear as to what exactly her baseline neurological function was prior to this admission. 7. On neurologic examination, at this time she opens her eyes on vocal stimulation. She also turns her eyes and head towards the direction of sound. She closes and then opens her eyes on command. However she can only do that once and it cannot be duplicated. She responds to deep pain with minimal nonpurposeful withdrawal in both upper extremities and no response in both lower extremities. Further mental status testing was impossible. She responds to deep pain with minimal nonpurposeful withdrawal in both upper extremities and no response in both lower extremities. She does have brainstem reflexes in the form of eye movements on oculocephalic maneuvers, and spontaneous ventilations. Her deep tendon reflexes are globally absent and the plantar responses mute. 8. Her latest laboratory data on my initial evaluation revealed an anemia with a hemoglobin of 10.1 g, AST elevated at 49, alkaline phosphate is elevated at 198, proBNP elevated at 11,463, normal PO2 at 83, minimally low PCO2 at 33, normal TSH, and a therapeutic Tegretol level at 10.2. 9. Further laboratory tests have revealed a normal vitamin B12 level, normal folate, ammonia level elevated at 46, and an elevated ESR at 90. 10. The CT scan of the brain without contrast performed on 02/21/2020 revealed "Innumerable bilateral meningiomas, white matter edema of the left cerebellar hemisphere and the right cerebral hemisphere, mass-effect upon the right lateral ventricle with shift of the midline structures from the right to the left, loss of salas-white differentiation, but no acute pathology." The findings are very similar to a scan performed in November 2019. 11. The patient's history, neurological examination, CT scan of the brain and EEG are most consistent with a significant toxic metabolic encephalopathy superimposed on significant structural brain disease that seems to be old. At this point in time it is unknown if the patient may also have acute intracranial pathology as an MRI scan cannot be obtained. 12. With regards to her seizure disorder, the patient has not had any clinical seizures while hospitalized and in addition the EEG also did not reveal any seizures but did reveal interictal phenomena emanating from the right temporal region. Recommendations RECOMMENDATIONS: 1. Continue present management. 2. Continue prehospitalization anticonvulsant regimen. 3. Try to determine the patient's prehospitalization baseline and to when exactly she was able to talk and walk. 4. Observe closely. Otoniel Ellis M.D., M.S.P.H. Neurologist & Clinical Neurophysiologist Otoniel Ellis MD Feb 28, 2020 18:12
[2020-02-28] MEDS: Dyna-Hex 2% Top Sol 2oz TOPIC SCH (20:06)
--- NOTE | 2020-02-28 20:58 | General Progress Note ---
Assessment/Plan Assessment/Plan: Assessment - Resp failure - NGT dependent - Shock - s/p SD - anasarca - Anemia - abnormal LFT Recommendations - Continue NGT feeds - Vent - Supportive care - PEG Subjective Allergies: Coded Allergies: PENICILLINS (Verified Allergy, Severe, 08/07/12) FISH CONTAINING PRODUCTS (Verified Allergy, Unknown, 06/02/18) Uncoded Allergies: seafood (Allergy, Unknown, 06/02/18) Subjective Above noted patient scheduled for GT placement at 1400 today but procedure cancelled since anesthesia not available at that time Objective Last 24 Hour Vital Signs Date Time Temp Pulse Resp B/P (MAP) Pulse Ox O2 Delivery O2 Flow Rate FiO2 02/28/20 20:47 95 139/85 02/28/20 19:00 94 19 147/85 (105) 100 02/28/20 18:32 90 18 30 02/28/20 18:00 86 17 139/74 (95) 100 02/28/20 17:00 87 17 132/72 (92) 100 02/28/20 16:34 84 18 30 02/28/20 16:00 87 02/28/20 16:00 30 02/28/20 16:00 88 17 135/75 (95) 100 02/28/20 16:00 Mechanical Ventilator 02/28/20 15:08 87 17 30 02/28/20 15:00 97.4 85 17 129/71 (90) 100 02/28/20 14:00 88 18 135/75 (95) 100 02/28/20 14:00 89 18 135/75 (95) 02/28/20 13:00 84 17 107/65 (79) 100 02/28/20 12:39 87 17 30 02/28/20 12:00 Mechanical Ventilator 02/28/20 12:00 99.8 89 18 133/63 (86) 02/28/20 12:00 91 02/28/20 12:00 30 02/28/20 11:00 94 19 125/76 (92) 02/28/20 10:43 93 18 30 02/28/20 10:00 95 18 124/71 (88) 100 02/28/20 09:06 96 19 30 02/28/20 09:00 99 17 118/75 (89) 100 02/28/20 08:32 98 124/62 02/28/20 08:00 30 02/28/20 08:00 Mechanical Ventilator 02/28/20 08:00 100.0 98 19 124/62 (82) 100 02/28/20 08:00 99 02/28/20 07:04 103 20 30 02/28/20 07:00 103 21 120/70 (87) 100 02/28/20 06:00 101 20 132/73 (92) 100 02/28/20 05:18 93 19 30 02/28/20 05:00 93 19 121/61 (81) 100 02/28/20 04:00 Mechanical Ventilator 02/28/20 04:00 30 02/28/20 04:00 94 20 115/70 (85) 100 02/28/20 04:00 96 02/28/20 03:49 93 22 30 02/28/20 03:00 100 20 126/67 (86) 100 02/28/20 02:00 92 25 121/69 (86) 100 02/28/20 01:35 95 19 30 02/28/20 01:00 98 20 133/74 (93) 100 02/28/20 00:00 93 02/28/20 00:00 98.2 94 19 131/75 (93) 100 02/28/20 00:00 Mechanical Ventilator 02/28/20 00:00 30 02/27/20 23:45 98 20 30 02/27/20 23:00 94 18 126/78 (94) 100 02/27/20 22:00 88 18 116/67 (83) 99 02/27/20 21:42 98 20 30 02/27/20 21:06 101 125/77 02/27/20 21:00 101 20 126/77 (93) 100 Intake and Output 02/27/20 02/28/20 19:00 07:00 Intake Total 823.75 ml 1325 ml Output Total 1125 ml 1440 ml Balance -301.25 ml -115 ml IV Total 823.75 ml 965 ml Tube Feeding 360 ml Output Urine Total 1125 ml 1440 ml # Bowel Movements 2 Laboratory Tests 02/28/20 04:00: White Blood Count 8.4, Red Blood Count 3.31L, Hemoglobin 10.3L, Hematocrit 31.4L , Mean Corpuscular Volume 95, Mean Corpuscular Hemoglobin 31.0, Mean Corpuscular Hemoglobin Concent 32.7, Red Cell Distribution Width 13.7, Platelet Count 380, Mean Platelet Volume 7.1, Neutrophils (%) (Auto) 83.2H, Lymphocytes ( %) (Auto) 8.2L, Monocytes (%) (Auto) 7.5, Eosinophils (%) (Auto) 0.4, Basophils (%) (Auto) 0.8, Sodium Level 142, Potassium Level 3.5, Chloride Level 108H, Carbon Dioxide Level 25, Anion Gap 9, Blood Urea Nitrogen 35H, Creatinine 0.9, Estimat Glomerular Filtration Rate > 60, Glucose Level 125H, Calcium Level 7.8L , Total Bilirubin 0.4, Aspartate Amino Transf (AST/SGOT) 42H, Alanine Aminotransferase (ALT/SGPT) 42, Alkaline Phosphatase 165H, Total Protein 6.0L, Albumin 1.7L, Globulin 4.3, Albumin/Globulin Ratio 0.4L Height (Feet): 5 Height (Inches): 5.00 Weight (Pounds): 150 Objective WDWN AA woman NCAT, (+) ETT and NGT Coarse BS RR abd soft NT ND (++) edema Lilly Au MD Feb 28, 2020 20:58
[2020-02-29] VITALS (20 sets, daily range): BP systolic 78–140; BP diastolic 55–93
[2020-02-29] MEDS: Metoclopramide 10mg/2ml Inj IVP SCH ×4 (00:31→20:45)
--- NOTE | 2020-02-29 01:00 | Cardiology Progress Note ---
Subjective DATE OF SERVICE: Feb 28, 2020 On vent support - s/p uncomplicated trach 02/27/20. BP remains stable range No new fever spikes. Per neuro, no seizure activity noted, but remains unresponsive Monitor: sinus tachycardia and sinus rhythm CXR (02/25/20) unchanged bibasilar infiltrates, and effusions. Objective Last 24 Hour Vital Signs Date Time Temp Pulse Resp B/P (MAP) Pulse Ox O2 Delivery O2 Flow Rate FiO2 02/29/20 00:49 88 18 30 02/28/20 23:01 87 17 30 02/28/20 23:00 86 18 132/80 (97) 100 02/28/20 22:00 78 16 127/80 (96) 100 02/28/20 21:07 93 17 30 02/28/20 21:00 96 19 139/86 (103) 100 02/28/20 20:47 95 139/85 02/28/20 20:30 94 18 139/85 (103) 100 02/28/20 20:00 98.1 93 18 146/84 (104) 100 02/28/20 20:00 30 02/28/20 20:00 Mechanical Ventilator 02/28/20 19:32 92 02/28/20 19:00 94 19 147/85 (105) 100 02/28/20 18:32 90 18 30 02/28/20 18:00 86 17 139/74 (95) 100 02/28/20 17:00 87 17 132/72 (92) 100 02/28/20 16:34 84 18 30 02/28/20 16:00 87 02/28/20 16:00 30 02/28/20 16:00 88 17 135/75 (95) 100 02/28/20 16:00 Mechanical Ventilator 02/28/20 15:08 87 17 30 02/28/20 15:00 97.4 85 17 129/71 (90) 100 02/28/20 14:00 88 18 135/75 (95) 100 02/28/20 14:00 89 18 135/75 (95) 02/28/20 13:00 84 17 107/65 (79) 100 02/28/20 12:39 87 17 30 02/28/20 12:00 Mechanical Ventilator 02/28/20 12:00 99.8 89 18 133/63 (86) 02/28/20 12:00 91 02/28/20 12:00 30 02/28/20 11:00 94 19 125/76 (92) 02/28/20 10:43 93 18 30 02/28/20 10:00 95 18 124/71 (88) 100 02/28/20 09:06 96 19 30 02/28/20 09:00 99 17 118/75 (89) 100 02/28/20 08:32 98 124/62 02/28/20 08:00 30 02/28/20 08:00 Mechanical Ventilator 02/28/20 08:00 100.0 98 19 124/62 (82) 100 02/28/20 08:00 99 02/28/20 07:04 103 20 30 02/28/20 07:00 103 21 120/70 (87) 100 02/28/20 06:00 101 20 132/73 (92) 100 02/28/20 05:18 93 19 30 02/28/20 05:00 93 19 121/61 (81) 100 02/28/20 04:00 Mechanical Ventilator 02/28/20 04:00 30 02/28/20 04:00 94 20 115/70 (85) 100 02/28/20 04:00 96 02/28/20 03:49 93 22 30 02/28/20 03:00 100 20 126/67 (86) 100 02/28/20 02:00 92 25 121/69 (86) 100 02/28/20 01:35 95 19 30 02/28/20 01:00 98 20 133/74 (93) 100 ROS: no change from my evaluation on 02/14/20 HEENT: Thin secretions ET Tube RHYTHM: ST LUNGS: bilateral rhonchi, trach site clean CARDIAC: normal rate, regular rhythm, normal S1 and S2 ABDOMEN: normal bowel sounds, non tender, soft EXTREMITIES: non-tender, trace edema, other - PICC line Laboratory Tests Test 02/28/20 04:00 White Blood Count 8.4 K/UL (4.8-10.8) Red Blood Count 3.31 M/UL (4.20-5.40) L Hemoglobin 10.3 G/DL (12.0-16.0) L Hematocrit 31.4 % (37.0-47.0) L Mean Corpuscular Volume 95 FL (80-99) Mean Corpuscular Hemoglobin 31.0 PG (27.0-31.0) Mean Corpuscular Hemoglobin Concent 32.7 G/DL (32.0-36.0) Red Cell Distribution Width 13.7 % (11.6-14.8) Platelet Count 380 K/UL (150-450) Mean Platelet Volume 7.1 FL (6.5-10.1) Neutrophils (%) (Auto) 83.2 % (45.0-75.0) H Lymphocytes (%) (Auto) 8.2 % (20.0-45.0) L Monocytes (%) (Auto) 7.5 % (1.0-10.0) Eosinophils (%) (Auto) 0.4 % (0.0-3.0) Basophils (%) (Auto) 0.8 % (0.0-2.0) Sodium Level 142 MMOL/L (136-145) Potassium Level 3.5 MMOL/L (3.5-5.1) Chloride Level 108 MMOL/L (98-107) H Carbon Dioxide Level 25 MMOL/L (21-32) Anion Gap 9 mmol/L (5-15) Blood Urea Nitrogen 35 mg/dL (7-18) H Creatinine 0.9 MG/DL (0.55-1.30) Estimat Glomerular Filtration Rate > 60 mL/min (>60) Glucose Level 125 MG/DL (74-106) H Calcium Level 7.8 MG/DL (8.5-10.1) L Total Bilirubin 0.4 MG/DL (0.2-1.0) Aspartate Amino Transf (AST/SGOT) 42 U/L (15-37) H Alanine Aminotransferase (ALT/SGPT) 42 U/L (12-78) Alkaline Phosphatase 165 U/L (46-116) H Total Protein 6.0 G/DL (6.4-8.2) L Albumin 1.7 G/DL (3.4-5.0) L Globulin 4.3 g/dL Albumin/Globulin Ratio 0.4 (1.0-2.7) L Assessment/Plan Assessment/Plan Respiratory Failure - s/p trach UTI Sepsis with shock Acute myocardial infarction (NSTE) Neurofibromatosis with edema Hypokalemia Hypomagnesemia Hypovolemia Pulmonary Hypertension Aspiration PNA Seizure Disorder Pleural effusions Encephalopathy Vent support Anti-sz meds Steroids discont'd anti-plt rx and anticoagulation on hold since trach and subseq PEG, scheduled 03/01. Beta blockade Antimicrobials and resp rx Nutritional suppl Maintenance IVF while NPO Replace electrolytes Check ammonia level Marcus Main MD Feb 29, 2020 01:00
[2020-02-29 05:40] LABS: BASOPHILS % (AUTO) 0.3 % (0.0-2.0); EOSINOPHILS % (AUTO) 0.8 % (0.0-3.0); HEMATOCRIT 30.7 % (37.0-47.0); HEMOGLOBIN 9.9 G/DL (12.0-16.0); LYMPHOCYTES % (AUTO) 7.7 % (20.0-45.0); MEAN CORPUSCULAR VOLUME 96 FL (80-99); MONOCYTES % (AUTO) 8.6 % (1.0-10.0); NEUTROPHILS % (AUTO) 82.6 % (45.0-75.0); PLATELET COUNT 305 K/UL (150-450); RED CELL DISTRIBUTION WIDTH 15.6 % (11.6-14.8); WHITE BLOOD COUNT 9.4 K/UL (4.8-10.8)
[2020-02-29 05:55] LABS: ALANINE AMINOTRANSFERASE 52 U/L (12-78); ALBUMIN 1.5 G/DL (3.4-5.0); ALBUMIN/GLOBULIN RATIO 0.4 (1.0-2.7); ALKALINE PHOSPHATASE 144 U/L (46-116); ANION GAP 9 mmol/L (5-15); ASPARTATE AMINO TRANSFERASE 43 U/L (15-37); BILIRUBIN,TOTAL 0.5 MG/DL (0.2-1.0); BLOOD UREA NITROGEN 28 mg/dL (7-18); CARBON DIOXIDE 27 MMOL/L (21-32); CHLORIDE 113 MMOL/L (98-107); CREATININE 0.9 MG/DL (0.55-1.30); POTASSIUM 3.9 MMOL/L (3.5-5.1); SODIUM 149 MMOL/L (136-145)
[2020-02-29] MEDS: Lacri-Lube Opth Oint 3.5gm BOTH EYES SCH ×3 (05:56→21:13)
[2020-02-29 06:08] LABS: AMMONIA 38 umol/L (11-32)
--- NOTE | 2020-02-29 07:42 | General Progress Note ---
Assessment/Plan Problem List: (1) Seizure disorder ICD Codes: G40.909 - Epilepsy, unspecified, not intractable,without status epilepticus SNOMED: 105048148 (2) Pulmonary hypertension ICD Codes: I27.20 - Pulmonary hypertension, unspecified SNOMED: 98719727 (3) Respiratory failure ICD Codes: J96.90 - Respiratory failure, unspecified, unspecified whether with hypoxia or hypercapnia SNOMED: 730855152 Qualifiers: Qualified Codes: J96.01 - Acute respiratory failure with hypoxia (4) Severe sepsis ICD Codes: A41.9 - Sepsis, unspecified organism; R65.20 - Severe sepsis without septic shock SNOMED: 28247466 (5) NSTEMI (non-ST elevated myocardial infarction) ICD Codes: I21.4 - Non-ST elevation (NSTEMI) myocardial infarction SNOMED: 31738457 (6) Fever ICD Codes: R50.9 - Fever, unspecified SNOMED: 620373017 (7) Dyspnea ICD Codes: R06.00 - Dyspnea, unspecified SNOMED: 166184659 Assessment/Plan: cont vent support resp care/suctioning trach care sz rx monitor for szs ngt feeds GT tomorrow dvt/stress ulcer prophylaxis turn q2 eliquis on hold for gt placement Subjective ROS Limited/Unobtainable: Yes Constitutional: Reports: malaise, weakness HEENT: Reports: no symptoms Cardiovascular: Reports: no symptoms Respiratory: Reports: shortness of breath, sputum Gastrointestinal/Abdominal: Reports: difficulty swallowing Genitourinary: Reports: no symptoms Neurologic/Psychiatric: Reports: pre-existing deficit, seizure Endocrine: Reports: no symptoms Hematologic/Lymphatic: Reports: anemia Allergies: Coded Allergies: PENICILLINS (Verified Allergy, Severe, 08/07/12) FISH CONTAINING PRODUCTS (Verified Allergy, Unknown, 06/02/18) Uncoded Allergies: seafood (Allergy, Unknown, 06/02/18) All Systems: reviewed and negative except above Subjective no overnight events. stable on the vent. no fevers. no reports of szs. tolerating NGT feeds. poorly responsive. Objective Last 24 Hour Vital Signs Date Time Temp Pulse Resp B/P (MAP) Pulse Ox O2 Delivery O2 Flow Rate FiO2 02/29/20 07:03 96 18 97/78 (84) 100 02/29/20 07:00 94 19 78/57 (64) 100 02/29/20 06:00 93 20 114/83 (93) 100 02/29/20 05:00 92 19 118/76 (90) 100 02/29/20 04:44 90 20 30 02/29/20 04:00 Mechanical Ventilator 02/29/20 04:00 98.3 88 20 138/82 (100) 100 02/29/20 04:00 88 02/29/20 04:00 30 02/29/20 03:00 95 22 136/93 (107) 100 02/29/20 02:50 97 16 30 02/29/20 02:48 97 17 100 Mechanical Ventilator 30 02/29/20 02:00 92 18 140/80 (100) 99 02/29/20 01:00 89 18 131/75 (93) 100 02/29/20 00:49 88 18 30 02/29/20 00:00 98.6 87 20 136/76 (96) 100 02/29/20 00:00 87 02/29/20 00:00 Mechanical Ventilator 02/29/20 00:00 30 02/28/20 23:01 87 17 30 02/28/20 23:00 86 18 132/80 (97) 100 02/28/20 22:00 78 16 127/80 (96) 100 02/28/20 21:07 93 17 30 02/28/20 21:00 96 19 139/86 (103) 100 02/28/20 20:47 95 139/85 02/28/20 20:30 94 18 139/85 (103) 100 02/28/20 20:00 98.1 93 18 146/84 (104) 100 02/28/20 20:00 30 02/28/20 20:00 Mechanical Ventilator 02/28/20 19:32 92 02/28/20 19:00 94 19 147/85 (105) 100 02/28/20 18:32 90 18 30 02/28/20 18:00 86 17 139/74 (95) 100 02/28/20 17:00 87 17 132/72 (92) 100 02/28/20 16:34 84 18 30 02/28/20 16:00 87 02/28/20 16:00 30 02/28/20 16:00 88 17 135/75 (95) 100 02/28/20 16:00 Mechanical Ventilator 02/28/20 15:08 87 17 30 02/28/20 15:00 97.4 85 17 129/71 (90) 100 02/28/20 14:00 88 18 135/75 (95) 100 02/28/20 14:00 89 18 135/75 (95) 02/28/20 13:00 84 17 107/65 (79) 100 02/28/20 12:39 87 17 30 02/28/20 12:00 Mechanical Ventilator 02/28/20 12:00 99.8 89 18 133/63 (86) 02/28/20 12:00 91 02/28/20 12:00 30 02/28/20 11:00 94 19 125/76 (92) 02/28/20 10:43 93 18 30 02/28/20 10:00 95 18 124/71 (88) 100 02/28/20 09:06 96 19 30 02/28/20 09:00 99 17 118/75 (89) 100 02/28/20 08:32 98 124/62 02/28/20 08:00 30 02/28/20 08:00 Mechanical Ventilator 02/28/20 08:00 100.0 98 19 124/62 (82) 100 02/28/20 08:00 99 Intake and Output 02/28/20 02/29/20 19:00 07:00 Intake Total 1310 ml 1410 ml Output Total 1435 ml 570 ml Balance -125 ml 840 ml IV Total 950 ml 1000 ml Tube Feeding 360 ml 360 ml Other 50 ml Output Urine Total 1435 ml 570 ml # Bowel Movements 2 2 Laboratory Tests 02/29/20 04:10: White Blood Count 9.4, Red Blood Count 3.20L, Hemoglobin 9.9L, Hematocrit 30.7L , Mean Corpuscular Volume 96, Mean Corpuscular Hemoglobin 31.0, Mean Corpuscular Hemoglobin Concent 32.3, Red Cell Distribution Width 15.6H, Platelet Count 305, Mean Platelet Volume 7.2, Neutrophils (%) (Auto) 82.6H, Lymphocytes (%) (Auto) 7.7L, Monocytes (%) (Auto) 8.6, Eosinophils (%) (Auto) 0.8, Basophils (%) (Auto) 0.3, Sodium Level 149H, Potassium Level 3.9, Chloride Level 113H, Carbon Dioxide Level 27, Anion Gap 9, Blood Urea Nitrogen 28H, Creatinine 0.9, Estimat Glomerular Filtration Rate > 60, Glucose Level 118H, Calcium Level 8.0L, Magnesium Level 1.8, Total Bilirubin 0.5, Aspartate Amino Transf (AST/SGOT) 43H, Alanine Aminotransferase (ALT/SGPT) 52, Alkaline Phosphatase 144H, Ammonia 38H, Pro-B-Type Natriuretic Peptide 30932P, Total Protein 5.7L, Albumin 1.5L, Globulin 4.2, Albumin/Globulin Ratio 0.4L Height (Feet): 5 Height (Inches): 5.00 Weight (Pounds): 150 Objective General Appearance: WD/WN, confused EENT: PERRL/EOMI, normal ENT inspection Neck: non-tender, normal alignment. trach c/d/i Cardiovascular: normal peripheral pulses, normal rate Respiratory/Chest: chest wall non-tender, lungs clear, normal breath sounds Abdomen: normal bowel sounds, non tender Edema: no edema noted Arm (L), no edema noted Arm (R) Neurologic: disoriented, unresponsive Skin: normal pigmentation Lymphatic: normal anterior cervical (L), normal anterior cervical (R) Liborio Dugan MD Feb 29, 2020 07:41
[2020-02-29] MEDS: levETIRAcetam 1,000mg/NS100ml 100 ML IVPB SCH ×2 (09:12→20:47)
[2020-02-29] MEDS: OPSUMIT 10 MG ORAL SCH (09:13)
[2020-02-29] MEDS: carBAMazepine 200mg tab NG SCH ×3 (09:13→17:04)
[2020-02-29] MEDS: SELEXIPAG ORAL SCH ×2 (09:13→20:54)
--- NOTE | 2020-02-29 09:15 | Critical Care Progress Note ---
Assessment/Plan Assessment/Plan respiratory failure s/p trach pneumonia improved by CXR pulmonary hypertension elevated troponin possible NSTEMI paraplegia hypoxemia seizure history brain masses, chronic moderate PCM PLAN care noted- with family; trach done awaiting GT IV antibiotics noted imaging noted respiratory care and nursing care noted Ventilatory support on- unable to wean mental status remains poor and not improved monitor acid base and adjust supportive care suction as needed monitor heart rate seizure meds- as is oxygen therapy prognosis same nutrition off load and monitor skin update family as to care and placement will need subacute care when stable and trach and GT in medications/laboratory data/nursing notes/ICU care reviewed in detail note reviewed and edited care discussed with RN and RT ICU time spent >40 minutes Critical Care - Subjective ROS Limited/Unobtainable: Yes Condition: critical EKG Rhythm: Sinus Rhythm Residuals: minimal Tube Feeding Tolerated: yes I&O: Intake and Output 02/28/20 02/29/20 19:00 07:00 Intake Total 1310 ml 1410 ml Output Total 1435 ml 570 ml Balance -125 ml 840 ml IV Total 950 ml 1000 ml Tube Feeding 360 ml 360 ml Other 50 ml Output Urine Total 1435 ml 570 ml # Bowel Movements 2 2 Critical Care - Objective ET-Tube: 7.0 ET Position: 25 Last 24 Hour Vital Signs Date Time Temp Pulse Resp B/P (MAP) Pulse Ox O2 Delivery O2 Flow Rate FiO2 02/29/20 08:35 90 18 30 02/29/20 08:00 Mechanical Ventilator 02/29/20 08:00 30 02/29/20 07:15 92 17 30 02/29/20 07:03 96 18 97/78 (84) 100 02/29/20 07:00 94 19 78/57 (64) 100 02/29/20 06:00 93 20 114/83 (93) 100 02/29/20 05:00 92 19 118/76 (90) 100 02/29/20 04:44 90 20 30 02/29/20 04:00 Mechanical Ventilator 02/29/20 04:00 98.3 88 20 138/82 (100) 100 02/29/20 04:00 88 02/29/20 04:00 30 02/29/20 03:00 95 22 136/93 (107) 100 02/29/20 02:50 97 16 30 02/29/20 02:48 97 17 100 Mechanical Ventilator 30 02/29/20 02:00 92 18 140/80 (100) 99 02/29/20 01:00 89 18 131/75 (93) 100 02/29/20 00:49 88 18 30 02/29/20 00:00 98.6 87 20 136/76 (96) 100 02/29/20 00:00 87 02/29/20 00:00 Mechanical Ventilator 02/29/20 00:00 30 02/28/20 23:01 87 17 30 02/28/20 23:00 86 18 132/80 (97) 100 02/28/20 22:00 78 16 127/80 (96) 100 02/28/20 21:07 93 17 30 02/28/20 21:00 96 19 139/86 (103) 100 02/28/20 20:47 95 139/85 02/28/20 20:30 94 18 139/85 (103) 100 02/28/20 20:00 98.1 93 18 146/84 (104) 100 02/28/20 20:00 30 02/28/20 20:00 Mechanical Ventilator 02/28/20 19:32 92 02/28/20 19:00 94 19 147/85 (105) 100 02/28/20 18:32 90 18 30 02/28/20 18:00 86 17 139/74 (95) 100 02/28/20 17:00 87 17 132/72 (92) 100 02/28/20 16:34 84 18 30 02/28/20 16:00 87 02/28/20 16:00 30 02/28/20 16:00 88 17 135/75 (95) 100 02/28/20 16:00 Mechanical Ventilator 02/28/20 15:08 87 17 30 02/28/20 15:00 97.4 85 17 129/71 (90) 100 02/28/20 14:00 88 18 135/75 (95) 100 02/28/20 14:00 89 18 135/75 (95) 02/28/20 13:00 84 17 107/65 (79) 100 02/28/20 12:39 87 17 30 02/28/20 12:00 Mechanical Ventilator 02/28/20 12:00 99.8 89 18 133/63 (86) 02/28/20 12:00 91 02/28/20 12:00 30 02/28/20 11:00 94 19 125/76 (92) 02/28/20 10:43 93 18 30 02/28/20 10:00 95 18 124/71 (88) 100 Labs: Laboratory Tests Test 02/29/20 04:10 White Blood Count 9.4 K/UL (4.8-10.8) Red Blood Count 3.20 M/UL (4.20-5.40) L Hemoglobin 9.9 G/DL (12.0-16.0) L Hematocrit 30.7 % (37.0-47.0) L Mean Corpuscular Volume 96 FL (80-99) Mean Corpuscular Hemoglobin 31.0 PG (27.0-31.0) Mean Corpuscular Hemoglobin Concent 32.3 G/DL (32.0-36.0) Red Cell Distribution Width 15.6 % (11.6-14.8) H Platelet Count 305 K/UL (150-450) Mean Platelet Volume 7.2 FL (6.5-10.1) Neutrophils (%) (Auto) 82.6 % (45.0-75.0) H Lymphocytes (%) (Auto) 7.7 % (20.0-45.0) L Monocytes (%) (Auto) 8.6 % (1.0-10.0) Eosinophils (%) (Auto) 0.8 % (0.0-3.0) Basophils (%) (Auto) 0.3 % (0.0-2.0) Sodium Level 149 MMOL/L (136-145) H Potassium Level 3.9 MMOL/L (3.5-5.1) Chloride Level 113 MMOL/L (98-107) H Carbon Dioxide Level 27 MMOL/L (21-32) Anion Gap 9 mmol/L (5-15) Blood Urea Nitrogen 28 mg/dL (7-18) H Creatinine 0.9 MG/DL (0.55-1.30) Estimat Glomerular Filtration Rate > 60 mL/min (>60) Glucose Level 118 MG/DL (74-106) H Calcium Level 8.0 MG/DL (8.5-10.1) L Magnesium Level 1.8 MG/DL (1.8-2.4) Total Bilirubin 0.5 MG/DL (0.2-1.0) Aspartate Amino Transf (AST/SGOT) 43 U/L (15-37) H Alanine Aminotransferase (ALT/SGPT) 52 U/L (12-78) Alkaline Phosphatase 144 U/L (46-116) H Ammonia 38 umol/L (11-32) H Pro-B-Type Natriuretic Peptide 29083 pg/mL (0-125) H Total Protein 5.7 G/DL (6.4-8.2) L Albumin 1.5 G/DL (3.4-5.0) L Globulin 4.2 g/dL Albumin/Globulin Ratio 0.4 (1.0-2.7) L Objective: WDWN NAD on vent, trach in place reduced breath sounds bilaterally without rhonchi or wheeze [id number] without MRG NABS nontender no HSM no CCE nonfocal poor LOC reduced ROM skin noted reviewed and edited feeding tube in place Juan Snow MD Feb 29, 2020 09:15
[2020-02-29] MEDS: Revatio 20mg tab ORAL SCH ×3 (09:16→17:03)
[2020-02-29] MEDS: Heparin 5000 units/ml inj SUBQ SCH ×2 (09:17→20:55)
--- NOTE | 2020-02-29 11:08 | Infectious Diseases Prog Note ---
Assessment/Plan Assessment/Plan antibiotics : none A 1. acenitobacter pneumonia s/p rx COVID 19 negative 2. respiratory failure s/p tracheostomy 3. neurofibromatosis 4. seizures 5. pulmonary hypertension 6. + blood cultures with coag neg staph likely contaminated P 1. continue off antibiotics 2. will follow up cultures Subjective ROS Limited/Unobtainable: Yes Allergies: Coded Allergies: PENICILLINS (Verified Allergy, Severe, 08/07/12) FISH CONTAINING PRODUCTS (Verified Allergy, Unknown, 06/02/18) Uncoded Allergies: seafood (Allergy, Unknown, 06/02/18) Objective Last 24 Hour Vital Signs Date Time Temp Pulse Resp B/P (MAP) Pulse Ox O2 Delivery O2 Flow Rate FiO2 02/29/20 10:00 73 13 98/69 (79) 02/29/20 09:14 92 117/77 02/29/20 09:00 95 19 99/70 (80) 02/29/20 08:35 90 18 30 02/29/20 08:00 Mechanical Ventilator 02/29/20 08:00 99 02/29/20 08:00 98.8 96 19 96/65 (75) 02/29/20 08:00 30 02/29/20 07:15 92 17 30 02/29/20 07:03 96 18 97/78 (84) 100 02/29/20 07:00 94 19 78/57 (64) 100 02/29/20 06:00 93 20 114/83 (93) 100 02/29/20 05:00 92 19 118/76 (90) 100 02/29/20 04:44 90 20 30 02/29/20 04:00 Mechanical Ventilator 02/29/20 04:00 98.3 88 20 138/82 (100) 100 02/29/20 04:00 88 02/29/20 04:00 30 02/29/20 03:00 95 22 136/93 (107) 100 02/29/20 02:50 97 16 30 02/29/20 02:48 97 17 100 Mechanical Ventilator 30 02/29/20 02:00 92 18 140/80 (100) 99 02/29/20 01:00 89 18 131/75 (93) 100 02/29/20 00:49 88 18 30 02/29/20 00:00 98.6 87 20 136/76 (96) 100 02/29/20 00:00 87 02/29/20 00:00 Mechanical Ventilator 02/29/20 00:00 30 02/28/20 23:01 87 17 30 02/28/20 23:00 86 18 132/80 (97) 100 02/28/20 22:00 78 16 127/80 (96) 100 02/28/20 21:07 93 17 30 02/28/20 21:00 96 19 139/86 (103) 100 02/28/20 20:47 95 139/85 02/28/20 20:30 94 18 139/85 (103) 100 02/28/20 20:00 98.1 93 18 146/84 (104) 100 02/28/20 20:00 30 02/28/20 20:00 Mechanical Ventilator 02/28/20 19:32 92 02/28/20 19:00 94 19 147/85 (105) 100 02/28/20 18:32 90 18 30 02/28/20 18:00 86 17 139/74 (95) 100 02/28/20 17:00 87 17 132/72 (92) 100 02/28/20 16:34 84 18 30 02/28/20 16:00 87 02/28/20 16:00 30 02/28/20 16:00 88 17 135/75 (95) 100 02/28/20 16:00 Mechanical Ventilator 02/28/20 15:08 87 17 30 02/28/20 15:00 97.4 85 17 129/71 (90) 100 02/28/20 14:00 88 18 135/75 (95) 100 02/28/20 14:00 89 18 135/75 (95) 02/28/20 13:00 84 17 107/65 (79) 100 02/28/20 12:39 87 17 30 02/28/20 12:00 Mechanical Ventilator 02/28/20 12:00 99.8 89 18 133/63 (86) 02/28/20 12:00 91 02/28/20 12:00 30 Height (Feet): 5 Height (Inches): 5.00 Weight (Pounds): 150 HEENT: status post trach Respiratory/Chest: lungs clear Cardiovascular: normal rate, regular rhythm, no gallop/murmur Abdomen: soft, non tender Extremities: no edema Laboratory Tests Test 02/29/20 04:10 White Blood Count 9.4 K/UL (4.8-10.8) Red Blood Count 3.20 M/UL (4.20-5.40) L Hemoglobin 9.9 G/DL (12.0-16.0) L Hematocrit 30.7 % (37.0-47.0) L Mean Corpuscular Volume 96 FL (80-99) Mean Corpuscular Hemoglobin 31.0 PG (27.0-31.0) Mean Corpuscular Hemoglobin Concent 32.3 G/DL (32.0-36.0) Red Cell Distribution Width 15.6 % (11.6-14.8) H Platelet Count 305 K/UL (150-450) Mean Platelet Volume 7.2 FL (6.5-10.1) Neutrophils (%) (Auto) 82.6 % (45.0-75.0) H Lymphocytes (%) (Auto) 7.7 % (20.0-45.0) L Monocytes (%) (Auto) 8.6 % (1.0-10.0) Eosinophils (%) (Auto) 0.8 % (0.0-3.0) Basophils (%) (Auto) 0.3 % (0.0-2.0) Sodium Level 149 MMOL/L (136-145) H Potassium Level 3.9 MMOL/L (3.5-5.1) Chloride Level 113 MMOL/L (98-107) H Carbon Dioxide Level 27 MMOL/L (21-32) Anion Gap 9 mmol/L (5-15) Blood Urea Nitrogen 28 mg/dL (7-18) H Creatinine 0.9 MG/DL (0.55-1.30) Estimat Glomerular Filtration Rate > 60 mL/min (>60) Glucose Level 118 MG/DL (74-106) H Calcium Level 8.0 MG/DL (8.5-10.1) L Magnesium Level 1.8 MG/DL (1.8-2.4) Total Bilirubin 0.5 MG/DL (0.2-1.0) Aspartate Amino Transf (AST/SGOT) 43 U/L (15-37) H Alanine Aminotransferase (ALT/SGPT) 52 U/L (12-78) Alkaline Phosphatase 144 U/L (46-116) H Ammonia 38 umol/L (11-32) H Pro-B-Type Natriuretic Peptide 34841 pg/mL (0-125) H Total Protein 5.7 G/DL (6.4-8.2) L Albumin 1.5 G/DL (3.4-5.0) L Globulin 4.2 g/dL Albumin/Globulin Ratio 0.4 (1.0-2.7) L Current Medications Medications (Trade) Dose Ordered Sig/Brian Route PRN Reason Start Time Stop Time Status Last Admin Dose Admin Acetaminophen (Tylenol) 650 mg Q4H PRN NG Mild Pain (Pain Scale 1-3) 02/14/20 03:00 03/15/20 02:59 02/17/20 05:28 Acetaminophen (Tylenol) 650 mg Q4H PRN NG Temp >100.5 02/14/20 03:00 03/15/20 02:59 02/19/20 21:04 Al Hydroxide/Mg Hydroxide (Mylanta) 30 ml Q4H PRN ORAL Dyspepsia 02/14/20 03:00 03/15/20 02:59 Artificial Tears (Lacri-Lube) 1 applic EVERY 8 HOURS BOTH EYES 02/27/20 14:00 03/18/20 09:29 02/29/20 05:56 Carbamazepine (TEGretol) 200 mg TID NG 02/14/20 09:00 03/15/20 08:59 02/29/20 09:13 Chlorhexidine Gluconate (Gricelda-Hex 2%) 1 applic DAILY@2000 TOPIC 02/26/20 20:00 05/26/20 19:59 02/28/20 20:06 Dextrose/ Electrolytes 1,000 ml @ 75 mls/hr [id number] IV 02/27/20 00:00 03/28/20 00:00 02/29/20 09:00 Furosemide (Lasix) 40 mg DAILY IV 02/24/20 22:15 03/25/20 22:14 02/29/20 09:16 Gabapentin (Neurontin) 100 mg THREE TIMES A DAY ORAL 02/14/20 09:00 03/15/20 08:59 02/29/20 09:16 Heparin Sodium (Porcine) (Heparin 5000 units/ml) 5,000 units EVERY 12 HOURS SUBQ 02/27/20 21:00 04/12/20 20:59 02/29/20 09:17 Lansoprazole (Prevacid) 30 mg DAILY NG 02/14/20 09:00 03/15/20 08:59 02/29/20 09:16 Levetiracetam 100 ml @ 400 mls/hr Q12HR IVPB 02/19/20 09:00 05/19/20 08:59 02/29/20 09:12 Magnesium Hydroxide (Mom) 30 ml TID PRN NG Constipation 02/26/20 19:00 03/27/20 18:59 Metoclopramide HCl (Reglan) 5 mg Q6H IVP 02/25/20 13:00 03/26/20 12:59 02/29/20 06:35 Metoclopramide HCl (Reglan) 5 mg Q6H PRN IVP Nausea & Vomiting 02/19/20 08:15 03/20/20 08:14 02/25/20 05:09 Metoprolol Tartrate (Lopressor) 25 mg Q12HR ORAL 02/15/20 21:00 05/15/20 20:59 02/29/20 09:14 Patient Own Medication (Patient's Own Med) 1 ea DAILY ORAL 02/14/20 13:00 03/15/20 12:59 02/29/20 09:13 Patient Own Medication (Patient's Own Med) 1 ea Q12HR ORAL 02/28/20 21:00 02/29/20 12:00 02/29/20 09:13 Patient Own Medication (Patient's Own Med) 1 ea Q12HR ORAL 02/29/20 21:00 03/30/20 20:59 Sildenafil Citrate (Revatio) 20 mg TID ORAL 02/14/20 09:00 05/14/20 08:59 02/29/20 09:16 Maci Deleon MD Feb 29, 2020 11:08
[2020-02-29] MEDS ORDERED: SELEXIPAG ORAL SCH ×2 (13:00→21:00)
[2020-02-29] MEDS ORDERED: NS 275ml ONE (13:45)
[2020-02-29] MEDS ORDERED: Acetaminophen 650mg/20.3ml NG PRN ×2 (17:30→18:00)
[2020-02-29] MEDS ORDERED: Metoclopramide 10mg/2ml Inj IVP PRN (18:00)
[2020-02-29] MEDS ORDERED: Milk of Magnesia 30ml Ud NG PRN (18:00)
--- NOTE | 2020-02-29 18:17 | Surgery Progress Note ---
Surgery Progress Note Subjective Procedure Performed tracheostomy Symptoms: improved, tolerating diet, passing flatus Objective Last 24 Hour Vital Signs Date Time Temp Pulse Resp B/P (MAP) Pulse Ox O2 Delivery O2 Flow Rate FiO2 02/29/20 17:16 98 19 30 02/29/20 17:00 103 20 95/55 (68) 98 02/29/20 16:00 30 02/29/20 16:00 100.0 93 19 98/56 (70) 99 02/29/20 16:00 96 02/29/20 16:00 Mechanical Ventilator 02/29/20 15:20 96 12 30 02/29/20 15:00 87 17 104/66 (79) 100 02/29/20 14:00 89 19 98/63 (75) 02/29/20 13:01 79 19 30 02/29/20 13:00 92 18 94/58 (70) 95 02/29/20 12:00 Mechanical Ventilator 02/29/20 12:00 30 02/29/20 12:00 98.6 93 18 96/64 (75) 95 02/29/20 12:00 86 02/29/20 11:09 82 19 30 02/29/20 11:00 91 20 95/61 (72) 100 02/29/20 10:00 73 13 98/69 (79) 02/29/20 09:14 92 117/77 02/29/20 09:00 95 19 99/70 (80) 02/29/20 08:35 90 18 30 02/29/20 08:00 Mechanical Ventilator 02/29/20 08:00 99 02/29/20 08:00 98.8 96 19 96/65 (75) 02/29/20 08:00 30 02/29/20 07:15 92 17 30 02/29/20 07:03 96 18 97/78 (84) 100 02/29/20 07:00 94 19 78/57 (64) 100 02/29/20 06:00 93 20 114/83 (93) 100 02/29/20 05:00 92 19 118/76 (90) 100 02/29/20 04:44 90 20 30 02/29/20 04:00 Mechanical Ventilator 02/29/20 04:00 98.3 88 20 138/82 (100) 100 02/29/20 04:00 88 02/29/20 04:00 30 9/2/20 03:00 95 22 136/93 (107) 100 02/29/20 02:50 97 16 30 02/29/20 02:48 97 17 100 Mechanical Ventilator 30 02/29/20 02:00 92 18 140/80 (100) 99 02/29/20 01:00 89 18 131/75 (93) 100 02/29/20 00:49 88 18 30 02/29/20 00:00 98.6 87 20 136/76 (96) 100 02/29/20 00:00 87 02/29/20 00:00 Mechanical Ventilator 02/29/20 00:00 30 02/28/20 23:01 87 17 30 02/28/20 23:00 86 18 132/80 (97) 100 02/28/20 22:00 78 16 127/80 (96) 100 02/28/20 21:07 93 17 30 02/28/20 21:00 96 19 139/86 (103) 100 02/28/20 20:47 95 139/85 02/28/20 20:30 94 18 139/85 (103) 100 02/28/20 20:00 98.1 93 18 146/84 (104) 100 02/28/20 20:00 30 02/28/20 20:00 Mechanical Ventilator 02/28/20 19:32 92 02/28/20 19:00 94 19 147/85 (105) 100 02/28/20 18:32 90 18 30 I&O Intake and Output 02/28/20 02/29/20 19:00 07:00 Intake Total 1310 ml 1410 ml Output Total 1435 ml 570 ml Balance -125 ml 840 ml IV Total 950 ml 1000 ml Tube Feeding 360 ml 360 ml Other 50 ml Output Urine Total 1435 ml 570 ml # Bowel Movements 2 2 Dressing: dry Wound: clean Cardiovascular: RSR Respiratory: clear Abdomen: soft, non-tender, present bowel sounds Extremities: no edema, no tenderness, no cyanosis Laboratory Tests Test 02/29/20 04:10 White Blood Count 9.4 K/UL (4.8-10.8) Red Blood Count 3.20 M/UL (4.20-5.40) L Hemoglobin 9.9 G/DL (12.0-16.0) L Hematocrit 30.7 % (37.0-47.0) L Mean Corpuscular Volume 96 FL (80-99) Mean Corpuscular Hemoglobin 31.0 PG (27.0-31.0) Mean Corpuscular Hemoglobin Concent 32.3 G/DL (32.0-36.0) Red Cell Distribution Width 15.6 % (11.6-14.8) H Platelet Count 305 K/UL (150-450) Mean Platelet Volume 7.2 FL (6.5-10.1) Neutrophils (%) (Auto) 82.6 % (45.0-75.0) H Lymphocytes (%) (Auto) 7.7 % (20.0-45.0) L Monocytes (%) (Auto) 8.6 % (1.0-10.0) Eosinophils (%) (Auto) 0.8 % (0.0-3.0) Basophils (%) (Auto) 0.3 % (0.0-2.0) Sodium Level 149 MMOL/L (136-145) H Potassium Level 3.9 MMOL/L (3.5-5.1) Chloride Level 113 MMOL/L (98-107) H Carbon Dioxide Level 27 MMOL/L (21-32) Anion Gap 9 mmol/L (5-15) Blood Urea Nitrogen 28 mg/dL (7-18) H Creatinine 0.9 MG/DL (0.55-1.30) Estimat Glomerular Filtration Rate > 60 mL/min (>60) Glucose Level 118 MG/DL (74-106) H Calcium Level 8.0 MG/DL (8.5-10.1) L Magnesium Level 1.8 MG/DL (1.8-2.4) Total Bilirubin 0.5 MG/DL (0.2-1.0) Aspartate Amino Transf (AST/SGOT) 43 U/L (15-37) H Alanine Aminotransferase (ALT/SGPT) 52 U/L (12-78) Alkaline Phosphatase 144 U/L (46-116) H Ammonia 38 umol/L (11-32) H Pro-B-Type Natriuretic Peptide 28240 pg/mL (0-125) H Total Protein 5.7 G/DL (6.4-8.2) L Albumin 1.5 G/DL (3.4-5.0) L Globulin 4.2 g/dL Albumin/Globulin Ratio 0.4 (1.0-2.7) L Plan Problems: (1) Respiratory failure Assessment & Plan: Respiratory insufficiency requiring prolonged ventilatory support currently remains on vent support unable to wean safely. Patient with altered level consciousness this time not responsive. Patient is a candidate for a tracheostomy. Pulmonology discussed with the family and they have agreed to proceed. Will optimize and plan for surgical intervention soon. Tracheostomy indicated and recommended. Thank you allowing me to participate in patient's care will follow with recommendations s/p trach improving labs noted trach okay weaning vent Bassam Hui Feb 29, 2020 18:17
[2020-02-29] MEDS: Dyna-Hex 2% Top Sol 2oz TOPIC SCH (20:44)
--- NOTE | 2020-02-29 21:28 | General Progress Note ---
Assessment/Plan Assessment/Plan: Assessment - Resp failure - NGT dependent - Shock - s/p AL - anasarca - Anemia - abnormal LFT Recommendations - NPO after MN - Vent - Supportive care - PEG Subjective Allergies: Coded Allergies: PENICILLINS (Verified Allergy, Severe, 08/07/12) FISH CONTAINING PRODUCTS (Verified Allergy, Unknown, 06/02/18) Uncoded Allergies: seafood (Allergy, Unknown, 06/02/18) Subjective Above noted patient scheduled for GT placement in am transferred out of ICU Objective Last 24 Hour Vital Signs Date Time Temp Pulse Resp B/P (MAP) Pulse Ox O2 Delivery O2 Flow Rate FiO2 02/29/20 20:54 108 119/64 02/29/20 19:27 109 18 30 02/29/20 17:16 98 19 30 02/29/20 17:00 103 20 95/55 (68) 98 02/29/20 16:00 30 02/29/20 16:00 100.0 93 19 98/56 (70) 99 02/29/20 16:00 96 02/29/20 16:00 Mechanical Ventilator 02/29/20 15:20 96 12 30 02/29/20 15:00 87 17 104/66 (79) 100 02/29/20 14:00 89 19 98/63 (75) 02/29/20 13:01 79 19 30 02/29/20 13:00 92 18 94/58 (70) 95 02/29/20 12:00 Mechanical Ventilator 02/29/20 12:00 30 02/29/20 12:00 98.6 93 18 96/64 (75) 95 02/29/20 12:00 86 02/29/20 11:09 82 19 30 02/29/20 11:00 91 20 95/61 (72) 100 02/29/20 10:00 73 13 98/69 (79) 02/29/20 09:14 92 117/77 02/29/20 09:00 95 19 99/70 (80) 02/29/20 08:35 90 18 30 02/29/20 08:00 Mechanical Ventilator 02/29/20 08:00 99 02/29/20 08:00 98.8 96 19 96/65 (75) 02/29/20 08:00 30 02/29/20 07:15 92 17 30 02/29/20 07:03 96 18 97/78 (84) 100 02/29/20 07:00 94 19 78/57 (64) 100 02/29/20 06:00 93 20 114/83 (93) 100 02/29/20 05:00 92 19 118/76 (90) 100 02/29/20 04:44 90 20 30 02/29/20 04:00 Mechanical Ventilator 02/29/20 04:00 98.3 88 20 138/82 (100) 100 02/29/20 04:00 88 02/29/20 04:00 30 02/29/20 03:00 95 22 136/93 (107) 100 02/29/20 02:50 97 16 30 02/29/20 02:48 97 17 100 Mechanical Ventilator 30 02/29/20 02:00 92 18 140/80 (100) 99 02/29/20 01:00 89 18 131/75 (93) 100 02/29/20 00:49 88 18 30 02/29/20 00:00 98.6 87 20 136/76 (96) 100 02/29/20 00:00 87 02/29/20 00:00 Mechanical Ventilator 02/29/20 00:00 30 02/28/20 23:01 87 17 30 02/28/20 23:00 86 18 132/80 (97) 100 02/28/20 22:00 78 16 127/80 (96) 100 Intake and Output 02/28/20 02/29/20 19:00 07:00 Intake Total 1310 ml 1410 ml Output Total 1435 ml 570 ml Balance -125 ml 840 ml IV Total 950 ml 1000 ml Tube Feeding 360 ml 360 ml Other 50 ml Output Urine Total 1435 ml 570 ml # Bowel Movements 2 2 Laboratory Tests 02/29/20 04:10: White Blood Count 9.4, Red Blood Count 3.20L, Hemoglobin 9.9L, Hematocrit 30.7L , Mean Corpuscular Volume 96, Mean Corpuscular Hemoglobin 31.0, Mean Corpuscular Hemoglobin Concent 32.3, Red Cell Distribution Width 15.6H, Platelet Count 305, Mean Platelet Volume 7.2, Neutrophils (%) (Auto) 82.6H, Lymphocytes (%) (Auto) 7.7L, Monocytes (%) (Auto) 8.6, Eosinophils (%) (Auto) 0.8, Basophils (%) (Auto) 0.3, Sodium Level 149H, Potassium Level 3.9, Chloride Level 113H, Carbon Dioxide Level 27, Anion Gap 9, Blood Urea Nitrogen 28H, Creatinine 0.9, Estimat Glomerular Filtration Rate > 60, Glucose Level 118H, Calcium Level 8.0L, Magnesium Level 1.8, Total Bilirubin 0.5, Aspartate Amino Transf (AST/SGOT) 43H, Alanine Aminotransferase (ALT/SGPT) 52, Alkaline Phosphatase 144H, Ammonia 38H, Pro-B-Type Natriuretic Peptide 10377U, Total Protein 5.7L, Albumin 1.5L, Globulin 4.2, Albumin/Globulin Ratio 0.4L Height (Feet): 5 Height (Inches): 5.00 Weight (Pounds): 150 Objective WDWN AA woman NCAT, (+) ETT and NGT Coarse BS RR abd soft NT ND (++) edema Lilly Au MD Feb 29, 2020 21:28
--- NOTE | 2020-02-29 23:17 | Cardiology Progress Note ---
Subjective DATE OF SERVICE: Feb 29, 2020 On vent support - s/p uncomplicated trach 02/27/20. BP range dropping today. Continues to have fever spikes. Per neuro, no seizure activity noted, but remains unresponsive Monitor: sinus tachycardia and sinus rhythm CXR (02/25/20) unchanged bibasilar infiltrates, and effusions. Objective Last 24 Hour Vital Signs Date Time Temp Pulse Resp B/P (MAP) Pulse Ox O2 Delivery O2 Flow Rate FiO2 02/29/20 21:20 112 21 30 02/29/20 20:54 108 119/64 02/29/20 20:00 100.5 104 20 112/73 (86) 100 02/29/20 20:00 108 02/29/20 19:27 109 18 30 02/29/20 17:16 98 19 30 02/29/20 17:00 103 20 95/55 (68) 98 02/29/20 16:00 30 02/29/20 16:00 100.0 93 19 98/56 (70) 99 02/29/20 16:00 96 02/29/20 16:00 Mechanical Ventilator 02/29/20 15:20 96 12 30 02/29/20 15:00 87 17 104/66 (79) 100 02/29/20 14:00 89 19 98/63 (75) 02/29/20 13:01 79 19 30 02/29/20 13:00 92 18 94/58 (70) 95 02/29/20 12:00 Mechanical Ventilator 02/29/20 12:00 30 02/29/20 12:00 98.6 93 18 96/64 (75) 95 02/29/20 12:00 86 02/29/20 11:09 82 19 30 02/29/20 11:00 91 20 95/61 (72) 100 02/29/20 10:00 73 13 98/69 (79) 02/29/20 09:14 92 117/77 02/29/20 09:00 95 19 99/70 (80) 02/29/20 08:35 90 18 30 02/29/20 08:00 Mechanical Ventilator 02/29/20 08:00 99 02/29/20 08:00 98.8 96 19 96/65 (75) 02/29/20 08:00 30 02/29/20 07:15 92 17 30 02/29/20 07:03 96 18 97/78 (84) 100 02/29/20 07:00 94 19 78/57 (64) 100 02/29/20 06:00 93 20 114/83 (93) 100 02/29/20 05:00 92 19 118/76 (90) 100 02/29/20 04:44 90 20 30 02/29/20 04:00 Mechanical Ventilator 02/29/20 04:00 98.3 88 20 138/82 (100) 100 02/29/20 04:00 88 02/29/20 04:00 30 02/29/20 03:00 95 22 136/93 (107) 100 02/29/20 02:50 97 16 30 02/29/20 02:48 97 17 100 Mechanical Ventilator 30 02/29/20 02:00 92 18 140/80 (100) 99 02/29/20 01:00 89 18 131/75 (93) 100 02/29/20 00:49 88 18 30 02/29/20 00:00 98.6 87 20 136/76 (96) 100 02/29/20 00:00 87 02/29/20 00:00 Mechanical Ventilator 02/29/20 00:00 30 ROS: no change from my evaluation on 02/14/20 HEENT: Thin secretions ET Tube RHYTHM: ST LUNGS: bilateral rhonchi, trach site clean CARDIAC: normal rate, regular rhythm, normal S1 and S2 ABDOMEN: normal bowel sounds, non tender, soft EXTREMITIES: non-tender, trace edema, other - PICC line Laboratory Tests Test 02/29/20 04:10 White Blood Count 9.4 K/UL (4.8-10.8) Red Blood Count 3.20 M/UL (4.20-5.40) L Hemoglobin 9.9 G/DL (12.0-16.0) L Hematocrit 30.7 % (37.0-47.0) L Mean Corpuscular Volume 96 FL (80-99) Mean Corpuscular Hemoglobin 31.0 PG (27.0-31.0) Mean Corpuscular Hemoglobin Concent 32.3 G/DL (32.0-36.0) Red Cell Distribution Width 15.6 % (11.6-14.8) H Platelet Count 305 K/UL (150-450) Mean Platelet Volume 7.2 FL (6.5-10.1) Neutrophils (%) (Auto) 82.6 % (45.0-75.0) H Lymphocytes (%) (Auto) 7.7 % (20.0-45.0) L Monocytes (%) (Auto) 8.6 % (1.0-10.0) Eosinophils (%) (Auto) 0.8 % (0.0-3.0) Basophils (%) (Auto) 0.3 % (0.0-2.0) Sodium Level 149 MMOL/L (136-145) H Potassium Level 3.9 MMOL/L (3.5-5.1) Chloride Level 113 MMOL/L (98-107) H Carbon Dioxide Level 27 MMOL/L (21-32) Anion Gap 9 mmol/L (5-15) Blood Urea Nitrogen 28 mg/dL (7-18) H Creatinine 0.9 MG/DL (0.55-1.30) Estimat Glomerular Filtration Rate > 60 mL/min (>60) Glucose Level 118 MG/DL (74-106) H Calcium Level 8.0 MG/DL (8.5-10.1) L Magnesium Level 1.8 MG/DL (1.8-2.4) Total Bilirubin 0.5 MG/DL (0.2-1.0) Aspartate Amino Transf (AST/SGOT) 43 U/L (15-37) H Alanine Aminotransferase (ALT/SGPT) 52 U/L (12-78) Alkaline Phosphatase 144 U/L (46-116) H Ammonia 38 umol/L (11-32) H Pro-B-Type Natriuretic Peptide 95192 pg/mL (0-125) H Total Protein 5.7 G/DL (6.4-8.2) L Albumin 1.5 G/DL (3.4-5.0) L Globulin 4.2 g/dL Albumin/Globulin Ratio 0.4 (1.0-2.7) L Microbiology Date/Time Source Procedure Growth Status 02/29/20 22:00 Nasopharynx SARS-CoV-2 RdRp Gene Assay - Final Complete Assessment/Plan Assessment/Plan Respiratory Failure - s/p trach UTI Sepsis with shock Acute myocardial infarction (NSTE) Neurofibromatosis with edema Hypokalemia Hypomagnesemia Hypovolemia Pulmonary Hypertension Aspiration PNA Seizure Disorder Pleural effusions Encephalopathy Hypernatremia Vent support Anti-sz meds Steroids discont'd anti-plt rx and anticoagulation on hold since trach and subseq PEG, scheduled 03/01. Beta blockade with hold parameter for low BP. Antimicrobials and resp rx Nutritional suppl hypotonic IVF while NPO; fluid boluses for low BP. Replace electrolytes Marcus Main MD Feb 29, 2020 23:17
[2020-02-29] MEDS ORDERED: D5 1/4NS w/KCl 20mEq 1,000 ML IV SCH (23:30)
[2020-03-01] VITALS: BP 100/69
[2020-03-01] MEDS: D5 1/4NS w/KCl 20mEq 1,000 ML IV SCH ×2 (01:35→14:50)
[2020-03-01] MEDS: Metoclopramide 10mg/2ml Inj IVP SCH ×4 (01:40→20:44)
[2020-03-01 04:00] VITALS: BP 99/57
[2020-03-01 05:03] LABS: BASOPHILS % (AUTO) 0.3 % (0.0-2.0); EOSINOPHILS % (AUTO) 0.7 % (0.0-3.0); HEMATOCRIT 30.4 % (37.0-47.0); HEMOGLOBIN 9.6 G/DL (12.0-16.0); LYMPHOCYTES % (AUTO) 7.3 % (20.0-45.0); MEAN CORPUSCULAR VOLUME 98 FL (80-99); MONOCYTES % (AUTO) 8.5 % (1.0-10.0); NEUTROPHILS % (AUTO) 83.3 % (45.0-75.0); PLATELET COUNT 262 K/UL (150-450); RED CELL DISTRIBUTION WIDTH 16.9 % (11.6-14.8)
[2020-03-01 05:38] LABS: ALANINE AMINOTRANSFERASE 60 U/L (12-78); ALBUMIN 1.6 G/DL (3.4-5.0); ALBUMIN/GLOBULIN RATIO 0.4 (1.0-2.7); ALKALINE PHOSPHATASE 154 U/L (46-116); ANION GAP 6 mmol/L (5-15); ASPARTATE AMINO TRANSFERASE 60 U/L (15-37); BILIRUBIN,TOTAL 0.5 MG/DL (0.2-1.0); BLOOD UREA NITROGEN 26 mg/dL (7-18); CALCIUM 7.9 MG/DL (8.5-10.1); CARBON DIOXIDE 29 MMOL/L (21-32); CHLORIDE 112 MMOL/L (98-107); CREATININE 0.8 MG/DL (0.55-1.30); POTASSIUM 4.2 MMOL/L (3.5-5.1); SODIUM 147 MMOL/L (136-145)
[2020-03-01] MEDS: Lacri-Lube Opth Oint 3.5gm BOTH EYES SCH ×3 (05:47→21:08)
[2020-03-01] MEDS: Revatio 20mg tab ORAL SCH ×3 (05:47→21:07)
[2020-03-01] MEDS ORDERED: Vancomycin 500 MG in D5W 110 ML IVPB ONE (07:00)
--- NOTE | 2020-03-01 07:38 | Anethesia Preoperative Eval ---
Anesthesia Pre-op PMH/ROS General Date of Evaluation: Mar 01, 2020 Time of Evaluation: 07:31 Anesthesiologist: Caroline ASA Score: ASA 4 Mallampati Score Class I : Soft palate, uvula, fauces, pillars visible Class II: Soft palate, uvula, fauces visible Class III: Soft palate, base of uvula visible Class IV: Only hard plate visible Mallampati Classification: Class III Surgeon: Vince Diagnosis: Dysphagia Surgical Procedure: EGD PEG tube placement Anesthesia History: none Family History: no anesthesia problems Allergies: Coded Allergies: PENICILLINS (Verified Allergy, Severe, 08/07/12) FISH CONTAINING PRODUCTS (Verified Allergy, Unknown, 06/02/18) Uncoded Allergies: seafood (Allergy, Unknown, 06/02/18) Patient NPO?: Yes Past Medical History Cardiovascular: Reports: HTN, [place] - h/o, other - CHF Pulmonary: Reports: COPD, other - respiratory failure tracheostomy in place Gastrointestinal/Genitourinary: Reports: GERD; Denies: CRI, ESRD, other Neurologic/Psychiatric: Reports: dementia, CVA; Denies: depression/anxiety, TIA, other Endocrine: Reports: hypothyroidism; Denies: DM, steroids, other HEENT: Denies: cataract (L), cataract (R), glaucoma, KOI (L), KOI (R), other Hematology/Immune: Reports: anemia; Denies: DVT, bleeding disorder, other Musculoskeletal/Integumentary: Denies: OA, RA, DJD, DDD, edema, other PMH Narrative: as above PSxH Narrative: see H&P Anesthesia Pre-op Phys. Exam Physician Exam Last Vital Signs Date Time Temp Pulse Resp B/P (MAP) Pulse Ox O2 Delivery O2 Flow Rate FiO2 03/01/20 05:22 96 20 30 03/01/20 04:00 Mechanical Ventilator 03/01/20 04:00 97.9 99/57 (71) 100 Constitutional: NAD Neurologic: other - unable to obtaine Cardiovascular: RRR, no M/R/G Respiratory: CTA Gastrointestinal: S/NT/ND Airway Exam Mallampati Score: Class III MO: limited Neck: stiff ROM: limited Teeth: missing Dentures: no upper, no lower Anesthesia Pre-op A/P Labs Hematology Test 03/01/20 03:10 White Blood Count 10.0 K/UL (4.8-10.8) Red Blood Count 3.10 M/UL (4.20-5.40) L Hemoglobin 9.6 G/DL (12.0-16.0) L Hematocrit 30.4 % (37.0-47.0) L Mean Corpuscular Volume 98 FL (80-99) Mean Corpuscular Hemoglobin 31.1 PG (27.0-31.0) H Mean Corpuscular Hemoglobin Concent 31.7 G/DL (32.0-36.0) L Red Cell Distribution Width 16.9 % (11.6-14.8) H Platelet Count 262 K/UL (150-450) Mean Platelet Volume 7.7 FL (6.5-10.1) Neutrophils (%) (Auto) 83.3 % (45.0-75.0) H Lymphocytes (%) (Auto) 7.3 % (20.0-45.0) L Monocytes (%) (Auto) 8.5 % (1.0-10.0) Eosinophils (%) (Auto) 0.7 % (0.0-3.0) Basophils (%) (Auto) 0.3 % (0.0-2.0) Chemistry Test 03/01/20 03:10 Sodium Level 147 MMOL/L (136-145) H Potassium Level 4.2 MMOL/L (3.5-5.1) Chloride Level 112 MMOL/L (98-107) H Carbon Dioxide Level 29 MMOL/L (21-32) Anion Gap 6 mmol/L (5-15) Blood Urea Nitrogen 26 mg/dL (7-18) H Creatinine 0.8 MG/DL (0.55-1.30) Estimat Glomerular Filtration Rate > 60 mL/min (>60) Glucose Level 120 MG/DL (74-106) H Calcium Level 7.9 MG/DL (8.5-10.1) L Total Bilirubin 0.5 MG/DL (0.2-1.0) Aspartate Amino Transf (AST/SGOT) 60 U/L (15-37) H Alanine Aminotransferase (ALT/SGPT) 60 U/L (12-78) Alkaline Phosphatase 154 U/L (46-116) H Total Protein 5.8 G/DL (6.4-8.2) L Albumin 1.6 G/DL (3.4-5.0) L Globulin 4.2 g/dL Albumin/Globulin Ratio 0.4 (1.0-2.7) L Risk Assessment & Plan Assessment: ASA 4 Plan: MAC Status Change Before Surgery: Derek Almendarez MD Mar 01, 2020 07:38
[2020-03-01 08:00] VITALS: BP 91/58
--- NOTE | 2020-03-01 08:08 | General Progress Note ---
Assessment/Plan Assessment/Plan: Assessment - Resp failure - NGT dependent - Shock - s/p NV - anasarca - Anemia - abnormal LFT Recommendations - NPO - Vent - Supportive care - PEG today - check hepatitis serologies - abd ultrasound Subjective Allergies: Coded Allergies: PENICILLINS (Verified Allergy, Severe, 08/07/12) FISH CONTAINING PRODUCTS (Verified Allergy, Unknown, 06/02/18) Uncoded Allergies: seafood (Allergy, Unknown, 06/02/18) Subjective Above noted NAD NPO for PEG Objective Last 24 Hour Vital Signs Date Time Temp Pulse Resp B/P (MAP) Pulse Ox O2 Delivery O2 Flow Rate FiO2 03/01/20 08:00 97.9 86 14 91/58 (69) 100 03/01/20 05:22 96 20 30 03/01/20 04:00 Mechanical Ventilator 03/01/20 04:00 97.9 91 18 99/57 (71) 100 03/01/20 04:00 30 03/01/20 03:39 84 16 30 03/01/20 03:27 89 03/01/20 01:22 89 18 30 03/01/20 00:00 30 03/01/20 00:00 93 03/01/20 00:00 99.0 97 20 100/69 (79) 99 03/01/20 00:00 Mechanical Ventilator 02/29/20 23:20 93 19 30 02/29/20 23:13 99.0 02/29/20 21:20 112 21 30 02/29/20 20:54 108 119/64 02/29/20 20:00 100.5 104 20 112/73 (86) 100 02/29/20 20:00 30 02/29/20 20:00 Mechanical Ventilator 02/29/20 20:00 108 02/29/20 19:27 109 18 30 02/29/20 17:16 98 19 30 02/29/20 17:00 103 20 95/55 (68) 98 02/29/20 16:00 30 02/29/20 16:00 100.0 93 19 98/56 (70) 99 02/29/20 16:00 96 02/29/20 16:00 Mechanical Ventilator 02/29/20 15:20 96 12 30 02/29/20 15:00 87 17 104/66 (79) 100 9/2/20 14:00 89 19 98/63 (75) 02/29/20 13:01 79 19 30 02/29/20 13:00 92 18 94/58 (70) 95 02/29/20 12:00 Mechanical Ventilator 02/29/20 12:00 30 02/29/20 12:00 98.6 93 18 96/64 (75) 95 02/29/20 12:00 86 02/29/20 11:09 82 19 30 02/29/20 11:00 91 20 95/61 (72) 100 02/29/20 10:00 73 13 98/69 (79) 02/29/20 09:14 92 117/77 02/29/20 09:00 95 19 99/70 (80) 02/29/20 08:35 90 18 30 Intake and Output 02/29/20 03/01/20 19:00 07:00 Intake Total 1470 ml 815 ml Output Total 1965 ml 250 ml Balance -495 ml 565 ml Free Water 230 ml 100 ml IV Total 700 ml 475 ml Tube Feeding 540 ml 240 ml Output Urine Total 1965 ml 250 ml # Bowel Movements 4 2 Laboratory Tests 03/01/20 03:10: White Blood Count 10.0, Red Blood Count 3.10L, Hemoglobin 9.6L, Hematocrit 30.4L , Mean Corpuscular Volume 98, Mean Corpuscular Hemoglobin 31.1H, Mean Corpuscular Hemoglobin Concent 31.7L, Red Cell Distribution Width 16.9H, Platelet Count 262, Mean Platelet Volume 7.7, Neutrophils (%) (Auto) 83.3H, Lymphocytes (%) (Auto) 7.3L, Monocytes (%) (Auto) 8.5, Eosinophils (%) (Auto) 0.7, Basophils (%) (Auto) 0.3, Sodium Level 147H, Potassium Level 4.2, Chloride Level 112H, Carbon Dioxide Level 29, Anion Gap 6, Blood Urea Nitrogen 26H, Creatinine 0.8, Estimat Glomerular Filtration Rate > 60, Glucose Level 120H, Calcium Level 7.9L, Total Bilirubin 0.5, Aspartate Amino Transf (AST/SGOT) 60H, Alanine Aminotransferase (ALT/SGPT) 60, Alkaline Phosphatase 154H, Total Protein 5.8L, Albumin 1.6L, Globulin 4.2, Albumin/Globulin Ratio 0.4L Height (Feet): 5 Height (Inches): 5.00 Weight (Pounds): 147 Objective WDWN AA woman NCAT, (+) Trach and NGT Coarse BS RR abd soft NT ND (++) edema Lilly Au MD Mar 01, 2020 08:08
--- NOTE | 2020-03-01 08:09 | Pre-Procedure Note/Attestation ---
Pre-Procedure Note/Attestation Complete Prior to Procedure Planned Procedure: not applicable Procedure Narrative: EGD with PEG placement Indications for Procedure Pre-Operative Diagnosis: Dysphagia Attestation I attest that I discussed the nature of the procedure; its benefits; risks and complications; and alternatives (and the risks and benefits of such alternatives ), prior to the procedure, with the patient (or the patient's legal visitor services representative). I attest that, if there was a reasonable possibility of needing a blood transfusion, the patient (or the patient's legal visitor services representative) was given the [facility] standardized written summary, pursuant to the Aneudy Rosalba Blood Safety Act ([place] Health and Safety Code # 1645, as amended). I attest that I re-evaluated the patient just prior to the surgery and that there has been no change in the patient's H&P, except as documented below: Lilly Au MD Mar 01, 2020 08:09
--- NOTE | 2020-03-01 08:20 | Critical Care Progress Note ---
Assessment/Plan Assessment/Plan respiratory failure s/p trach pneumonia improved by CXR pulmonary hypertension elevated troponin possible NSTEMI paraplegia hypoxemia seizure history brain masses, chronic moderate PCM PLAN trach care noted awaiting GT in am IV antibiotics noted imaging noted respiratory care and nursing care noted Ventilatory support on- unable to wean mental status remains poor and not improved monitor acid base and adjust supportive care suction as needed monitor heart rate seizure meds- as is oxygen therapy prognosis same nutrition off load and monitor skin update family as to care and placement will need subacute care when stable and trach and GT in medications/laboratory data/nursing notes reviewed in detail note reviewed and edited care discussed with RN and RT Critical Care - Subjective Interval Events: care noted and reviewed moved to [place] PEG in am ROS Limited/Unobtainable: Yes EKG Rhythm: Sinus Rhythm Residuals: minimal Tube Feeding Tolerated: yes I&O: Intake and Output 02/29/20 03/01/20 19:00 07:00 Intake Total 1470 ml 815 ml Output Total 1965 ml 250 ml Balance -495 ml 565 ml Free Water 230 ml 100 ml IV Total 700 ml 475 ml Tube Feeding 540 ml 240 ml Output Urine Total 1965 ml 250 ml # Bowel Movements 4 2 Critical Care - Objective ET-Tube: 7.0 ET Position: 25 Last 24 Hour Vital Signs Date Time Temp Pulse Resp B/P (MAP) Pulse Ox O2 Delivery O2 Flow Rate FiO2 03/01/20 08:00 97.9 86 14 91/58 (69) 100 03/01/20 07:17 89 18 30 03/01/20 05:22 96 20 30 03/01/20 04:00 Mechanical Ventilator 03/01/20 04:00 97.9 91 18 99/57 (71) 100 03/01/20 04:00 30 03/01/20 03:39 84 16 30 03/01/20 03:27 89 03/01/20 01:22 89 18 30 03/01/20 00:00 30 03/01/20 00:00 93 03/01/20 00:00 99.0 97 20 100/69 (79) 99 03/01/20 00:00 Mechanical Ventilator 02/29/20 23:20 93 19 30 02/29/20 23:13 99.0 02/29/20 21:20 112 21 30 02/29/20 20:54 108 119/64 02/29/20 20:00 100.5 104 20 112/73 (86) 100 02/29/20 20:00 30 02/29/20 20:00 Mechanical Ventilator 02/29/20 20:00 108 02/29/20 19:27 109 18 30 02/29/20 17:16 98 19 30 02/29/20 17:00 103 20 95/55 (68) 98 02/29/20 16:00 30 02/29/20 16:00 100.0 93 19 98/56 (70) 99 02/29/20 16:00 96 02/29/20 16:00 Mechanical Ventilator 02/29/20 15:20 96 12 30 02/29/20 15:00 87 17 104/66 (79) 100 02/29/20 14:00 89 19 98/63 (75) 02/29/20 13:01 79 19 30 02/29/20 13:00 92 18 94/58 (70) 95 02/29/20 12:00 Mechanical Ventilator 02/29/20 12:00 30 02/29/20 12:00 98.6 93 18 96/64 (75) 95 02/29/20 12:00 86 02/29/20 11:09 82 19 30 02/29/20 11:00 91 20 95/61 (72) 100 02/29/20 10:00 73 13 98/69 (79) 02/29/20 09:14 92 117/77 02/29/20 09:00 95 19 99/70 (80) 02/29/20 08:35 90 18 30 Labs: Laboratory Tests 03/01/20 03:10: White Blood Count 10.0, Red Blood Count 3.10L, Hemoglobin 9.6L, Hematocrit 30.4L , Mean Corpuscular Volume 98, Mean Corpuscular Hemoglobin 31.1H, Mean Corpuscular Hemoglobin Concent 31.7L, Red Cell Distribution Width 16.9H, Platelet Count 262, Mean Platelet Volume 7.7, Neutrophils (%) (Auto) 83.3H, Lymphocytes (%) (Auto) 7.3L, Monocytes (%) (Auto) 8.5, Eosinophils (%) (Auto) 0.7, Basophils (%) (Auto) 0.3, Sodium Level 147H, Potassium Level 4.2, Chloride Level 112H, Carbon Dioxide Level 29, Anion Gap 6, Blood Urea Nitrogen 26H, Creatinine 0.8, Estimat Glomerular Filtration Rate > 60, Glucose Level 120H, Calcium Level 7.9L, Total Bilirubin 0.5, Aspartate Amino Transf (AST/SGOT) 60H, Alanine Aminotransferase (ALT/SGPT) 60, Alkaline Phosphatase 154H, Total Protein 5.8L, Albumin 1.6L, Globulin 4.2, Albumin/Globulin Ratio 0.4L Objective: WDWN NAD on vent, trach in place reduced breath sounds bilaterally without rhonchi or wheeze [id number] without MRG NABS nontender no HSM no CCE nonfocal poor LOC reduced ROM skin noted reviewed and edited feeding tube in place Micro: Microbiology Date/Time Source Procedure Growth Status 02/29/20 22:00 Nasopharynx SARS-CoV-2 RdRp Gene Assay - Final Complete Juan Snow MD Mar 01, 2020 08:20
--- NOTE | 2020-03-01 08:38 | Immediate Post-Op Evaluation ---
Immediate Post-Op Evalulation Immediate Post-Op Evalulation Procedure: EGD PEG tube placement Date of Evaluation: Mar 01, 2020 Time of Evaluation: 08:37 IV Fluids: 100 Blood Products: none Estimated Blood Loss: min Urinary Output: none Blood Pressure Systolic: 102 Blood Pressure Diastolic: 56 Pulse Rate: 88 Respiratory Rate: 20 O2 Sat by Pulse Oximetry: 99 Temperature (Fahrenheit): 97.5 Pain Score (1-10): 1 Nausea: No Vomiting: No Complications none Patient Status: reacts, ventilated, none Hydration Status: adequate Derek Velazquez MD Mar 01, 2020 08:38
--- NOTE | 2020-03-01 08:57 | Endoscopy Procedure Note ---
Endoscopy Procedure Note General Indication for Procedure: dysphagia Procedures Performed: EGD Operative Findings/Diagnosis: gastritis, PEG Bx Specimen: yes Pt Tolerated Procedure Well: Yes Estimated Blood Loss: none Anesthesia Anesthesiologist: see report Anesthesia: MAC Inserted Devices Implant(s) used?: No GI Core Measures 50 yrs or older w/o bx or poly: Not Applicable 10yrs. F/U recommended: Not Applicable Lilly Au MD Mar 01, 2020 08:57
--- NOTE | 2020-03-01 08:58 | Brief Operative Note ---
Immediate Post Operative Note Operative Note Chief Complaint: dysphagia Pre-op Diagnosis: Dysphagia Procedure: EGD Bx PEG Post-op Diagnosis: gastritis s/p PEG Anesthesiologist: julio Anesthesia: MAC Specimen: yes Complications: none Fluids: per anesthesia Estimated Blood Loss: none Drains: none Implant(s) used?: No Lilly Au MD Mar 01, 2020 08:58
[2020-03-01] MEDS: SELEXIPAG ORAL SCH ×3 (09:01→20:54)
[2020-03-01] MEDS: carBAMazepine 200mg tab NG SCH ×3 (09:02→18:00)
[2020-03-01] MEDS: OPSUMIT 10 MG ORAL SCH (09:02)
[2020-03-01] MEDS: Heparin 5000 units/ml inj SUBQ SCH ×3 (09:04→21:00)
[2020-03-01] MEDS: levETIRAcetam 1,000mg/NS100ml 100 ML IVPB SCH ×2 (09:05→20:44)
--- NOTE | 2020-03-01 09:14 | 48 Hour Post Anesthesia Eval ---
Post Anesthesia Evaluation Procedure: EGD PEG tube placement Date of Evaluation: Mar 01, 2020 Time of Evaluation: 09:12 Blood Pressure Systolic: 102 0: 56 Pulse Rate: 88 Respiratory Rate: 20 Temperature (Fahrenheit): 97.5 O2 Sat by Pulse Oximetry: 98 Airway: other - tracheostomy Nausea: No Vomiting: No Pain Intensity: 1 Hydration Status: adequate Cardiopulmonary Status: stable Mental Status/LOC: patient returned to baseline Follow-up Care/Observations: n/a Post-Anesthesia Complications: none Follow-up care needed: N/A Derek Velazquez MD Mar 01, 2020 09:14
--- NOTE | 2020-03-01 09:43 | Surgery Progress Note ---
Surgery Progress Note Subjective Procedure Performed tracheostomy Additional Comments feeding tube placement trach okay pending subacute eval for placement Objective Last 24 Hour Vital Signs Date Time Temp Pulse Resp B/P (MAP) Pulse Ox O2 Delivery O2 Flow Rate FiO2 03/01/20 09:14 88 20 98 03/01/20 09:00 88 102/56 03/01/20 08:38 88 20 99 03/01/20 08:00 97.9 86 14 91/58 (69) 100 03/01/20 07:17 89 18 30 03/01/20 05:22 96 20 30 03/01/20 04:00 Mechanical Ventilator 03/01/20 04:00 97.9 91 18 99/57 (71) 100 03/01/20 04:00 30 03/01/20 03:39 84 16 30 03/01/20 03:27 89 03/01/20 01:22 89 18 30 03/01/20 00:00 30 03/01/20 00:00 93 03/01/20 00:00 99.0 97 20 100/69 (79) 99 03/01/20 00:00 Mechanical Ventilator 02/29/20 23:20 93 19 30 02/29/20 23:13 99.0 02/29/20 21:20 112 21 30 02/29/20 20:54 108 119/64 02/29/20 20:00 100.5 104 20 112/73 (86) 100 02/29/20 20:00 30 02/29/20 20:00 Mechanical Ventilator 02/29/20 20:00 108 02/29/20 19:27 109 18 30 02/29/20 17:16 98 19 30 02/29/20 17:00 103 20 95/55 (68) 98 02/29/20 16:00 30 02/29/20 16:00 100.0 93 19 98/56 (70) 99 02/29/20 16:00 96 02/29/20 16:00 Mechanical Ventilator 02/29/20 15:20 96 12 30 02/29/20 15:00 87 17 104/66 (79) 100 02/29/20 14:00 89 19 98/63 (75) 02/29/20 13:01 79 19 30 02/29/20 13:00 92 18 94/58 (70) 95 02/29/20 12:00 Mechanical Ventilator 02/29/20 12:00 30 02/29/20 12:00 98.6 93 18 96/64 (75) 95 02/29/20 12:00 86 02/29/20 11:09 82 19 30 02/29/20 11:00 91 20 95/61 (72) 100 02/29/20 10:00 73 13 98/69 (79) I&O Intake and Output 02/29/20 03/01/20 19:00 07:00 Intake Total 1470 ml 815 ml Output Total 1965 ml 250 ml Balance -495 ml 565 ml Free Water 230 ml 100 ml IV Total 700 ml 475 ml Tube Feeding 540 ml 240 ml Output Urine Total 1965 ml 250 ml # Bowel Movements 4 2 Dressing: saturated Cardiovascular: RSR Respiratory: clear, decreased breath sounds Abdomen: non-tender, present bowel sounds Extremities: no edema, no tenderness, no cyanosis Laboratory Tests Test 03/01/20 03:10 White Blood Count 10.0 K/UL (4.8-10.8) Red Blood Count 3.10 M/UL (4.20-5.40) L Hemoglobin 9.6 G/DL (12.0-16.0) L Hematocrit 30.4 % (37.0-47.0) L Mean Corpuscular Volume 98 FL (80-99) Mean Corpuscular Hemoglobin 31.1 PG (27.0-31.0) H Mean Corpuscular Hemoglobin Concent 31.7 G/DL (32.0-36.0) L Red Cell Distribution Width 16.9 % (11.6-14.8) H Platelet Count 262 K/UL (150-450) Mean Platelet Volume 7.7 FL (6.5-10.1) Neutrophils (%) (Auto) 83.3 % (45.0-75.0) H Lymphocytes (%) (Auto) 7.3 % (20.0-45.0) L Monocytes (%) (Auto) 8.5 % (1.0-10.0) Eosinophils (%) (Auto) 0.7 % (0.0-3.0) Basophils (%) (Auto) 0.3 % (0.0-2.0) Sodium Level 147 MMOL/L (136-145) H Potassium Level 4.2 MMOL/L (3.5-5.1) Chloride Level 112 MMOL/L (98-107) H Carbon Dioxide Level 29 MMOL/L (21-32) Anion Gap 6 mmol/L (5-15) Blood Urea Nitrogen 26 mg/dL (7-18) H Creatinine 0.8 MG/DL (0.55-1.30) Estimat Glomerular Filtration Rate > 60 mL/min (>60) Glucose Level 120 MG/DL (74-106) H Calcium Level 7.9 MG/DL (8.5-10.1) L Total Bilirubin 0.5 MG/DL (0.2-1.0) Aspartate Amino Transf (AST/SGOT) 60 U/L (15-37) H Alanine Aminotransferase (ALT/SGPT) 60 U/L (12-78) Alkaline Phosphatase 154 U/L (46-116) H Total Protein 5.8 G/DL (6.4-8.2) L Albumin 1.6 G/DL (3.4-5.0) L Globulin 4.2 g/dL Albumin/Globulin Ratio 0.4 (1.0-2.7) L Plan Problems: (1) Respiratory failure Assessment & Plan: Respiratory insufficiency requiring prolonged ventilatory support currently remains on vent support unable to wean safely. Patient with altered level consciousness this time not responsive. Patient is a candidate for a tracheostomy. Pulmonology discussed with the family and they have agreed to proceed. Will optimize and plan for surgical intervention soon. Tracheostomy indicated and recommended. Thank you allowing me to participate in patient's care will follow with recommendations s/p trach improving labs noted trach okay weaning vent peg sub acute eval for placement Bassam Hui Mar 01, 2020 09:43
--- NOTE | 2020-03-01 10:28 | Infectious Diseases Prog Note ---
Assessment/Plan Assessment/Plan A 1. Acinetobacter pneumonia treated COVID19 X2: negative 2. Hypoxic respiratory failure 3. neurofibromatosis 4. seizures 5. pulmonary hypertension 6. Sepsis 7. Non ST elevation [place] 8. Coma 9. Deaf & blind P 1. Observe off antibiotic Subjective ROS Limited/Unobtainable: Yes Constitutional: Reports: fever, other - low grade fever last night Gastrointestinal/Abdominal: Reports: other - had EGD & PEG placement today Allergies: Coded Allergies: PENICILLINS (Verified Allergy, Severe, 08/07/12) FISH CONTAINING PRODUCTS (Verified Allergy, Unknown, 06/02/18) Uncoded Allergies: seafood (Allergy, Unknown, 06/02/18) Objective Last 24 Hour Vital Signs Date Time Temp Pulse Resp B/P (MAP) Pulse Ox O2 Delivery O2 Flow Rate FiO2 03/01/20 09:14 87 15 30 03/01/20 09:14 88 20 98 03/01/20 09:00 88 102/56 03/01/20 08:38 88 20 99 03/01/20 08:00 97.9 86 14 91/58 (69) 100 03/01/20 08:00 Mechanical Ventilator 03/01/20 07:17 89 18 30 03/01/20 05:22 96 20 30 03/01/20 04:00 Mechanical Ventilator 03/01/20 04:00 97.9 91 18 99/57 (71) 100 03/01/20 04:00 30 03/01/20 03:39 84 16 30 03/01/20 03:27 89 03/01/20 01:22 89 18 30 03/01/20 00:00 30 03/01/20 00:00 93 03/01/20 00:00 99.0 97 20 100/69 (79) 99 03/01/20 00:00 Mechanical Ventilator 02/29/20 23:20 93 19 30 02/29/20 23:13 99.0 02/29/20 21:20 112 21 30 02/29/20 20:54 108 119/64 02/29/20 20:00 100.5 104 20 112/73 (86) 100 02/29/20 20:00 30 02/29/20 20:00 Mechanical Ventilator 02/29/20 20:00 108 02/29/20 19:27 109 18 30 02/29/20 17:16 98 19 30 02/29/20 17:00 103 20 95/55 (68) 98 02/29/20 16:00 30 02/29/20 16:00 100.0 93 19 98/56 (70) 99 02/29/20 16:00 96 02/29/20 16:00 Mechanical Ventilator 02/29/20 15:20 96 12 30 02/29/20 15:00 87 17 104/66 (79) 100 02/29/20 14:00 89 19 98/63 (75) 02/29/20 13:01 79 19 30 02/29/20 13:00 92 18 94/58 (70) 95 02/29/20 12:00 Mechanical Ventilator 02/29/20 12:00 30 02/29/20 12:00 98.6 93 18 96/64 (75) 95 02/29/20 12:00 86 02/29/20 11:09 82 19 30 02/29/20 11:00 91 20 95/61 (72) 100 Height (Feet): 5 Height (Inches): 5.00 Weight (Pounds): 147 HEENT: status post trach Respiratory/Chest: lungs clear, other - on ventilator Cardiovascular: normal rate Abdomen: soft, non tender, other - GT in place Extremities: other - generalized edema Neurologic/Psychiatric: unresponsiveness Microbiology Date/Time Source Procedure Growth Status 02/29/20 22:00 Nasopharynx SARS-CoV-2 RdRp Gene Assay - Final Complete Laboratory Tests Test 03/01/20 03:10 White Blood Count 10.0 K/UL (4.8-10.8) Red Blood Count 3.10 M/UL (4.20-5.40) L Hemoglobin 9.6 G/DL (12.0-16.0) L Hematocrit 30.4 % (37.0-47.0) L Mean Corpuscular Volume 98 FL (80-99) Mean Corpuscular Hemoglobin 31.1 PG (27.0-31.0) H Mean Corpuscular Hemoglobin Concent 31.7 G/DL (32.0-36.0) L Red Cell Distribution Width 16.9 % (11.6-14.8) H Platelet Count 262 K/UL (150-450) Mean Platelet Volume 7.7 FL (6.5-10.1) Neutrophils (%) (Auto) 83.3 % (45.0-75.0) H Lymphocytes (%) (Auto) 7.3 % (20.0-45.0) L Monocytes (%) (Auto) 8.5 % (1.0-10.0) Eosinophils (%) (Auto) 0.7 % (0.0-3.0) Basophils (%) (Auto) 0.3 % (0.0-2.0) Sodium Level 147 MMOL/L (136-145) H Potassium Level 4.2 MMOL/L (3.5-5.1) Chloride Level 112 MMOL/L (98-107) H Carbon Dioxide Level 29 MMOL/L (21-32) Anion Gap 6 mmol/L (5-15) Blood Urea Nitrogen 26 mg/dL (7-18) H Creatinine 0.8 MG/DL (0.55-1.30) Estimat Glomerular Filtration Rate > 60 mL/min (>60) Glucose Level 120 MG/DL (74-106) H Calcium Level 7.9 MG/DL (8.5-10.1) L Total Bilirubin 0.5 MG/DL (0.2-1.0) Aspartate Amino Transf (AST/SGOT) 60 U/L (15-37) H Alanine Aminotransferase (ALT/SGPT) 60 U/L (12-78) Alkaline Phosphatase 154 U/L (46-116) H Total Protein 5.8 G/DL (6.4-8.2) L Albumin 1.6 G/DL (3.4-5.0) L Globulin 4.2 g/dL Albumin/Globulin Ratio 0.4 (1.0-2.7) L Current Medications Medications (Trade) Dose Ordered Sig/Brian Route PRN Reason Start Time Stop Time Status Last Admin Dose Admin Acetaminophen (Tylenol) 650 mg Q4H PRN NG Mild Pain (Pain Scale 1-3) 02/29/20 17:30 03/15/20 17:29 Acetaminophen (Tylenol) 650 mg Q4H PRN NG Temp >100.5 02/29/20 18:00 03/15/20 17:59 02/29/20 22:43 Al Hydroxide/Mg Hydroxide (Mylanta) 30 ml Q4H PRN ORAL Dyspepsia 02/29/20 18:00 03/15/20 17:59 Artificial Tears (Lacri-Lube) 1 applic EVERY 8 HOURS BOTH EYES 02/29/20 22:00 03/18/20 09:29 03/01/20 05:47 Carbamazepine (TEGretol) 200 mg TID NG 03/01/20 09:00 03/31/20 08:59 03/01/20 09:02 Chlorhexidine Gluconate (Gricelda-Hex 2%) 1 applic DAILY@2000 TOPIC 02/29/20 20:00 05/26/20 19:59 02/29/20 20:44 Dextrose/ Electrolytes 1,000 ml @ 75 mls/hr [id number] IV 03/01/20 01:30 03/31/20 01:29 03/01/20 01:35 Gabapentin (Neurontin) 100 mg THREE TIMES A DAY ORAL 03/01/20 09:00 03/31/20 08:59 03/01/20 09:02 Heparin Sodium (Porcine) (Heparin 5000 units/ml) 5,000 units EVERY 12 HOURS SUBQ 02/29/20 21:00 04/12/20 20:59 03/01/20 09:04 Lansoprazole (Prevacid) 30 mg DAILY NG 03/01/20 09:00 03/15/20 08:59 03/01/20 09:02 Levetiracetam 100 ml @ 400 mls/hr Q12HR IVPB 02/29/20 21:00 05/19/20 08:59 03/01/20 09:05 Magnesium Hydroxide (Mom) 30 ml TIDPRN PRN NG Constipation 02/29/20 18:00 03/30/20 17:59 Metoclopramide HCl (Reglan) 5 mg Q6H IVP 02/29/20 20:00 03/26/20 19:59 03/01/20 08:00 Metoclopramide HCl (Reglan) 5 mg Q6H PRN IVP Nausea & Vomiting 02/29/20 18:00 03/20/20 17:59 Metoprolol Tartrate (Lopressor) 25 mg Q12HR ORAL 02/29/20 21:00 05/15/20 20:59 02/29/20 20:54 Patient Own Medication (Patient's Own Med) 1 ea DAILY ORAL 03/01/20 09:00 03/31/20 08:59 03/01/20 09:02 Patient Own Medication (Patient's Own Med) 1 ea Q12HR ORAL 02/29/20 21:00 03/30/20 20:59 03/01/20 09:01 Sildenafil Citrate (Revatio) 20 mg Q8HR ORAL 03/01/20 06:00 05/30/20 05:59 03/01/20 05:47 Guillaume Hernandez MD Mar 01, 2020 10:28
--- NOTE | 2020-03-01 11:39 | Cardiology Progress Note ---
Subjective DATE OF SERVICE: Mar 01, 2020 On vent support - s/p uncomplicated trach 02/27/20. BP range low at times - better today. Continues to have fever spikes. Per neuro, no seizure activity noted, but remains unresponsive Monitor: sinus tachycardia and sinus rhythm CXR (02/25/20) unchanged bibasilar infiltrates, and effusions. Objective Last 24 Hour Vital Signs Date Time Temp Pulse Resp B/P (MAP) Pulse Ox O2 Delivery O2 Flow Rate FiO2 03/01/20 09:14 87 15 30 03/01/20 09:14 88 20 98 03/01/20 09:00 88 102/56 03/01/20 08:38 88 20 99 03/01/20 08:00 30 03/01/20 08:00 97.9 86 14 91/58 (69) 100 03/01/20 08:00 90 03/01/20 08:00 Mechanical Ventilator 03/01/20 07:17 89 18 30 03/01/20 05:22 96 20 30 03/01/20 04:00 Mechanical Ventilator 03/01/20 04:00 97.9 91 18 99/57 (71) 100 03/01/20 04:00 30 03/01/20 03:39 84 16 30 03/01/20 03:27 89 03/01/20 01:22 89 18 30 03/01/20 00:00 30 03/01/20 00:00 93 03/01/20 00:00 99.0 97 20 100/69 (79) 99 03/01/20 00:00 Mechanical Ventilator 02/29/20 23:20 93 19 30 02/29/20 23:13 99.0 02/29/20 21:20 112 21 30 02/29/20 20:54 108 119/64 02/29/20 20:00 100.5 104 20 112/73 (86) 100 02/29/20 20:00 30 02/29/20 20:00 Mechanical Ventilator 02/29/20 20:00 108 02/29/20 19:27 109 18 30 02/29/20 17:16 98 19 30 02/29/20 17:00 103 20 95/55 (68) 98 02/29/20 16:00 30 02/29/20 16:00 100.0 93 19 98/56 (70) 99 02/29/20 16:00 96 02/29/20 16:00 Mechanical Ventilator 02/29/20 15:20 96 12 30 02/29/20 15:00 87 17 104/66 (79) 100 02/29/20 14:00 89 19 98/63 (75) 02/29/20 13:01 79 19 30 02/29/20 13:00 92 18 94/58 (70) 95 02/29/20 12:00 Mechanical Ventilator 02/29/20 12:00 30 02/29/20 12:00 98.6 93 18 96/64 (75) 95 02/29/20 12:00 86 ROS: no change from my evaluation on 02/14/20 HEENT: Thin Trach secretions RHYTHM: ST LUNGS: bilateral rhonchi, trach site clean CARDIAC: normal rate, regular rhythm, normal S1 and S2 ABDOMEN: normal bowel sounds, non tender, soft EXTREMITIES: non-tender, trace edema, other - PICC line Laboratory Tests Test 03/01/20 03:10 White Blood Count 10.0 K/UL (4.8-10.8) Red Blood Count 3.10 M/UL (4.20-5.40) L Hemoglobin 9.6 G/DL (12.0-16.0) L Hematocrit 30.4 % (37.0-47.0) L Mean Corpuscular Volume 98 FL (80-99) Mean Corpuscular Hemoglobin 31.1 PG (27.0-31.0) H Mean Corpuscular Hemoglobin Concent 31.7 G/DL (32.0-36.0) L Red Cell Distribution Width 16.9 % (11.6-14.8) H Platelet Count 262 K/UL (150-450) Mean Platelet Volume 7.7 FL (6.5-10.1) Neutrophils (%) (Auto) 83.3 % (45.0-75.0) H Lymphocytes (%) (Auto) 7.3 % (20.0-45.0) L Monocytes (%) (Auto) 8.5 % (1.0-10.0) Eosinophils (%) (Auto) 0.7 % (0.0-3.0) Basophils (%) (Auto) 0.3 % (0.0-2.0) Sodium Level 147 MMOL/L (136-145) H Potassium Level 4.2 MMOL/L (3.5-5.1) Chloride Level 112 MMOL/L (98-107) H Carbon Dioxide Level 29 MMOL/L (21-32) Anion Gap 6 mmol/L (5-15) Blood Urea Nitrogen 26 mg/dL (7-18) H Creatinine 0.8 MG/DL (0.55-1.30) Estimat Glomerular Filtration Rate > 60 mL/min (>60) Glucose Level 120 MG/DL (74-106) H Calcium Level 7.9 MG/DL (8.5-10.1) L Total Bilirubin 0.5 MG/DL (0.2-1.0) Aspartate Amino Transf (AST/SGOT) 60 U/L (15-37) H Alanine Aminotransferase (ALT/SGPT) 60 U/L (12-78) Alkaline Phosphatase 154 U/L (46-116) H Total Protein 5.8 G/DL (6.4-8.2) L Albumin 1.6 G/DL (3.4-5.0) L Globulin 4.2 g/dL Albumin/Globulin Ratio 0.4 (1.0-2.7) L Microbiology Date/Time Source Procedure Growth Status 02/29/20 22:00 Nasopharynx SARS-CoV-2 RdRp Gene Assay - Final Complete Assessment/Plan Assessment/Plan Respiratory Failure - s/p trach UTI Sepsis with shock Acute myocardial infarction (NSTE) Neurofibromatosis with edema Hypokalemia Hypomagnesemia Hypovolemia Pulmonary Hypertension Aspiration PNA Seizure Disorder Pleural effusions Encephalopathy Hypernatremia Vent support Anti-sz meds Steroids discont'd anti-plt rx and anticoagulation on hold since trach and subseq PEG, scheduled 03/01. Beta blockade with hold parameter for low BP. Antimicrobials and resp rx Nutritional suppl hypotonic IVF while NPO; fluid boluses for low BP. Replace electrolytes F/U CXR Marcus Main MD Mar 01, 2020 11:39
[2020-03-01 12:00] VITALS: BP 101/58
[2020-03-01 16:00] VITALS: BP 95/61
[2020-03-01 20:00] VITALS: BP 92/66
[2020-03-01] MEDS: Dyna-Hex 2% Top Sol 2oz TOPIC SCH (20:44)
[2020-03-02] VITALS: BP 101/72
[2020-03-02] MEDS: Metoclopramide 10mg/2ml Inj IVP SCH ×4 (01:04→20:26)
[2020-03-02] MEDS: D5 1/4NS w/KCl 20mEq 1,000 ML IV SCH (03:46)
[2020-03-02 04:00] VITALS: BP 100/67
[2020-03-02] MEDS: Lacri-Lube Opth Oint 3.5gm BOTH EYES SCH ×3 (05:05→21:44)
[2020-03-02] MEDS: Revatio 20mg tab ORAL SCH ×3 (05:05→21:44)
[2020-03-02 05:43] LABS: BASOPHILS % (AUTO) 0.5 % (0.0-2.0); EOSINOPHILS % (AUTO) 1.4 % (0.0-3.0); HEMOGLOBIN 9.5 G/DL (12.0-16.0); LYMPHOCYTES % (AUTO) 13.7 % (20.0-45.0); MEAN CORPUSCULAR VOLUME 98 FL (80-99); MONOCYTES % (AUTO) 8.4 % (1.0-10.0); PLATELET COUNT 220 K/UL (150-450); RED BLOOD COUNT 3.06 M/UL (4.20-5.40); RED CELL DISTRIBUTION WIDTH 16.2 % (11.6-14.8); WHITE BLOOD COUNT 7.1 K/UL (4.8-10.8)
[2020-03-02 06:56] LABS: ALANINE AMINOTRANSFERASE 52 U/L (12-78); ALBUMIN 1.5 G/DL (3.4-5.0); ALBUMIN/GLOBULIN RATIO 0.3 (1.0-2.7); ALKALINE PHOSPHATASE 132 U/L (46-116); ANION GAP 9 mmol/L (5-15); ASPARTATE AMINO TRANSFERASE 39 U/L (15-37); BILIRUBIN,TOTAL 0.7 MG/DL (0.2-1.0); BLOOD UREA NITROGEN 24 mg/dL (7-18); CALCIUM 8.1 MG/DL (8.5-10.1); CARBON DIOXIDE 25 MMOL/L (21-32); CHLORIDE 110 MMOL/L (98-107); CREATINE KINASE 107 U/L (26-308); CREATININE 0.8 MG/DL (0.55-1.30); POTASSIUM 4.6 MMOL/L (3.5-5.1); SODIUM 144 MMOL/L (136-145)
[2020-03-02 08:00] VITALS: BP 105/65
[2020-03-02] MEDS: Heparin 5000 units/ml inj SUBQ SCH ×2 (09:00→20:28)
[2020-03-02] MEDS: levETIRAcetam 1,000mg/NS100ml 100 ML IVPB SCH ×2 (09:24→20:28)
[2020-03-02] MEDS: SELEXIPAG ORAL SCH ×2 (09:25→20:28)
[2020-03-02] MEDS: OPSUMIT 10 MG ORAL SCH (09:25)
[2020-03-02] MEDS: carBAMazepine 200mg tab NG SCH ×3 (09:27→17:41)
--- NOTE | 2020-03-02 09:32 | Critical Care Progress Note ---
Assessment/Plan Assessment/Plan respiratory failure s/p trach pneumonia improved by CXR pulmonary hypertension elevated troponin possible NSTEMI paraplegia hypoxemia seizure history brain masses, chronic moderate PCM s/pGT PLAN trach care noted GT care IV antibiotics noted imaging noted respiratory care and nursing care noted Ventilatory support on- unable to wean mental status remains poor and not improved monitor acid base and adjust supportive care suction as needed monitor heart rate seizure meds- as is oxygen therapy prognosis same nutrition off load and monitor skin update family as to care and placement will need subacute care when stable medications/laboratory data/nursing notes reviewed in detail note reviewed and edited care discussed with RN and RT Critical Care - Subjective ROS Limited/Unobtainable: Yes Condition: critical EKG Rhythm: Sinus Rhythm Residuals: minimal Tube Feeding Tolerated: yes I&O: Intake and Output 03/01/20 03/02/20 19:00 07:00 Intake Total 450 ml 492.5 ml Output Total 250 ml Balance 450 ml 242.5 ml IV Total 450 ml 492.5 ml Tube Feeding 0 ml 0 ml Output Urine Total 250 ml # Bowel Movements 2 Critical Care - Objective ET-Tube: 7.0 ET Position: 25 Last 24 Hour Vital Signs Date Time Temp Pulse Resp B/P (MAP) Pulse Ox O2 Delivery O2 Flow Rate FiO2 03/02/20 09:28 73 105/65 03/02/20 09:08 73 14 30 03/02/20 08:00 98.2 76 18 105/65 (78) 100 03/02/20 07:09 92 16 30 03/02/20 04:56 84 18 30 03/02/20 04:00 98.5 78 18 100/67 (78) 100 03/02/20 04:00 82 03/02/20 04:00 30 03/02/20 04:00 Mechanical Ventilator 03/02/20 02:51 88 14 30 03/02/20 00:47 82 17 30 03/02/20 00:00 30 03/02/20 00:00 Mechanical Ventilator 03/02/20 00:00 77 03/02/20 00:00 98.5 71 18 101/72 (82) 100 03/01/20 22:58 85 15 30 03/01/20 21:06 87 17 30 03/01/20 20:45 85 92/66 03/01/20 20:00 Mechanical Ventilator 03/01/20 20:00 98.4 85 18 92/66 (75) 99 03/01/20 20:00 30 03/01/20 19:36 94 03/01/20 19:25 89 15 30 03/01/20 16:00 30 03/01/20 16:00 94 03/01/20 16:00 98.2 99 14 95/61 (72) 100 03/01/20 16:00 Mechanical Ventilator 03/01/20 12:17 95 03/01/20 12:00 98.2 96 16 101/58 (72) 98 03/01/20 12:00 Mechanical Ventilator 03/01/20 12:00 30 Labs: Labs Test 02/29/20 04:10 03/01/20 03:10 03/02/20 04:15 White Blood Count 9.4 K/UL (4.8-10.8) 10.0 K/UL (4.8-10.8) 7.1 K/UL (4.8-10.8) Red Blood Count 3.20 M/UL (4.20-5.40) 3.10 M/UL (4.20-5.40) 3.06 M/UL (4.20-5.40) Hemoglobin 9.9 G/DL (12.0-16.0) 9.6 G/DL (12.0-16.0) 9.5 G/DL (12.0-16.0) Hematocrit 30.7 % (37.0-47.0) 30.4 % (37.0-47.0) 30.0 % (37.0-47.0) Mean Corpuscular Volume 96 FL (80-99) 98 FL (80-99) 98 FL (80-99) Mean Corpuscular Hemoglobin 31.0 PG (27.0-31.0) 31.1 PG (27.0-31.0) 31.2 PG (27.0-31.0) Mean Corpuscular Hemoglobin Concent 32.3 G/DL (32.0-36.0) 31.7 G/DL (32.0-36.0) 31.7 G/DL (32.0-36.0) Red Cell Distribution Width 15.6 % (11.6-14.8) 16.9 % (11.6-14.8) 16.2 % (11.6-14.8) Platelet Count 305 K/UL (150-450) 262 K/UL (150-450) 220 K/UL (150-450) Mean Platelet Volume 7.2 FL (6.5-10.1) 7.7 FL (6.5-10.1) 7.5 FL (6.5-10.1) Neutrophils (%) (Auto) 82.6 % (45.0-75.0) 83.3 % (45.0-75.0) 76.0 % (45.0-75.0) Lymphocytes (%) (Auto) 7.7 % (20.0-45.0) 7.3 % (20.0-45.0) 13.7 % (20.0-45.0) Monocytes (%) (Auto) 8.6 % (1.0-10.0) 8.5 % (1.0-10.0) 8.4 % (1.0-10.0) Eosinophils (%) (Auto) 0.8 % (0.0-3.0) 0.7 % (0.0-3.0) 1.4 % (0.0-3.0) Basophils (%) (Auto) 0.3 % (0.0-2.0) 0.3 % (0.0-2.0) 0.5 % (0.0-2.0) Sodium Level 149 MMOL/L (136-145) 147 MMOL/L (136-145) 144 MMOL/L (136-145) Potassium Level 3.9 MMOL/L (3.5-5.1) 4.2 MMOL/L (3.5-5.1) 4.6 MMOL/L (3.5-5.1) Chloride Level 113 MMOL/L (98-107) 112 MMOL/L (98-107) 110 MMOL/L (98-107) Carbon Dioxide Level 27 MMOL/L (21-32) 29 MMOL/L (21-32) 25 MMOL/L (21-32) Anion Gap 9 mmol/L (5-15) 6 mmol/L (5-15) 9 mmol/L (5-15) Blood Urea Nitrogen 28 mg/dL (7-18) 26 mg/dL (7-18) 24 mg/dL (7-18) Creatinine 0.9 MG/DL (0.55-1.30) 0.8 MG/DL (0.55-1.30) 0.8 MG/DL (0.55-1.30) Estimat Glomerular Filtration Rate > 60 mL/min (>60) > 60 mL/min (>60) > 60 mL/min (>60) Glucose Level 118 MG/DL (74-106) 120 MG/DL (74-106) 88 MG/DL (74-106) Calcium Level 8.0 MG/DL (8.5-10.1) 7.9 MG/DL (8.5-10.1) 8.1 MG/DL (8.5-10.1) Magnesium Level 1.8 MG/DL (1.8-2.4) 1.8 MG/DL (1.8-2.4) Total Bilirubin 0.5 MG/DL (0.2-1.0) 0.5 MG/DL (0.2-1.0) 0.7 MG/DL (0.2-1.0) Aspartate Amino Transf (AST/SGOT) 43 U/L (15-37) 60 U/L (15-37) 39 U/L (15-37) Alanine Aminotransferase (ALT/SGPT) 52 U/L (12-78) 60 U/L (12-78) 52 U/L (12-78) Alkaline Phosphatase 144 U/L (46-116) 154 U/L (46-116) 132 U/L (46-116) Ammonia 38 umol/L (11-32) Pro-B-Type Natriuretic Peptide 20123 pg/mL (0-125) Total Protein 5.7 G/DL (6.4-8.2) 5.8 G/DL (6.4-8.2) 5.8 G/DL (6.4-8.2) Albumin 1.5 G/DL (3.4-5.0) 1.6 G/DL (3.4-5.0) 1.5 G/DL (3.4-5.0) Globulin 4.2 g/dL 4.2 g/dL 4.3 g/dL Albumin/Globulin Ratio 0.4 (1.0-2.7) 0.4 (1.0-2.7) 0.3 (1.0-2.7) Total Creatine Kinase 107 U/L (26-308) Objective: WDWN NAD on vent, trach in place reduced breath sounds bilaterally without rhonchi or wheeze [id number] without MRG NABS nontender GT no CCE nonfocal poor LOC reduced ROM skin noted reviewed and edited feeding tube in place Micro: Microbiology Date/Time Source Procedure Growth Status 02/29/20 22:00 Nasopharynx SARS-CoV-2 RdRp Gene Assay - Final Complete Juan Snow MD Mar 02, 2020 09:32
[2020-03-02] MEDS ORDERED: NS 275ml ONE ×2 (09:39→18:37)
--- NOTE | 2020-03-02 09:40 | General Progress Note ---
Assessment/Plan Problem List: (1) Seizure disorder ICD Codes: G40.909 - Epilepsy, unspecified, not intractable,without status epilepticus SNOMED: 867376173 (2) Pulmonary hypertension ICD Codes: I27.20 - Pulmonary hypertension, unspecified SNOMED: 36623952 (3) Respiratory failure ICD Codes: J96.90 - Respiratory failure, unspecified, unspecified whether with hypoxia or hypercapnia SNOMED: 854319778 Qualifiers: Qualified Codes: J96.01 - Acute respiratory failure with hypoxia (4) Severe sepsis ICD Codes: A41.9 - Sepsis, unspecified organism; R65.20 - Severe sepsis without septic shock SNOMED: 54340329 (5) NSTEMI (non-ST elevated myocardial infarction) ICD Codes: I21.4 - Non-ST elevation (NSTEMI) myocardial infarction SNOMED: 53985977 (6) Fever ICD Codes: R50.9 - Fever, unspecified SNOMED: 799844329 (7) Dyspnea ICD Codes: R06.00 - Dyspnea, unspecified SNOMED: 078610025 Status: stable Assessment/Plan: cont vent support resp care/suctioning trach care sz rx monitor for szs ngt feeds GT placement dvt/stress ulcer prophylaxis turn q2 eliquis on hold for gt placement Subjective Date patient seen: Mar 01, 2020 ROS Limited/Unobtainable: Yes Constitutional: Reports: no symptoms HEENT: Reports: no symptoms Cardiovascular: Reports: no symptoms Respiratory: Reports: shortness of breath, sputum Gastrointestinal/Abdominal: Reports: difficulty swallowing Genitourinary: Reports: no symptoms Neurologic/Psychiatric: Reports: pre-existing deficit, seizure Endocrine: Reports: no symptoms Hematologic/Lymphatic: Reports: no symptoms Allergies: Coded Allergies: PENICILLINS (Verified Allergy, Severe, 08/07/12) FISH CONTAINING PRODUCTS (Verified Allergy, Unknown, 06/02/18) Uncoded Allergies: seafood (Allergy, Unknown, 06/02/18) All Systems: reviewed and negative except above Subjective late entry for 03/01- unable to enter notes as EMR down. no events. stable. awaiting GT placement.no reports of szs. stable on trach/vemt. Objective Last 24 Hour Vital Signs Date Time Temp Pulse Resp B/P (MAP) Pulse Ox O2 Delivery O2 Flow Rate FiO2 03/02/20 09:28 73 105/65 03/02/20 09:08 73 14 30 03/02/20 08:00 98.2 76 18 105/65 (78) 100 03/02/20 07:09 92 16 30 03/02/20 04:56 84 18 30 03/02/20 04:00 98.5 78 18 100/67 (78) 100 03/02/20 04:00 82 03/02/20 04:00 30 03/02/20 04:00 Mechanical Ventilator 03/02/20 02:51 88 14 30 03/02/20 00:47 82 17 30 03/02/20 00:00 30 03/02/20 00:00 Mechanical Ventilator 03/02/20 00:00 77 03/02/20 00:00 98.5 71 18 101/72 (82) 100 03/01/20 22:58 85 15 30 03/01/20 21:06 87 17 30 03/01/20 20:45 85 92/66 03/01/20 20:00 Mechanical Ventilator 03/01/20 20:00 98.4 85 18 92/66 (75) 99 03/01/20 20:00 30 03/01/20 19:36 94 03/01/20 19:25 89 15 30 03/01/20 16:00 30 03/01/20 16:00 94 03/01/20 16:00 98.2 99 14 95/61 (72) 100 03/01/20 16:00 Mechanical Ventilator 03/01/20 12:17 95 03/01/20 12:00 98.2 96 16 101/58 (72) 98 03/01/20 12:00 Mechanical Ventilator 03/01/20 12:00 30 Intake and Output 03/01/20 03/02/20 19:00 07:00 Intake Total 450 ml 492.5 ml Output Total 250 ml Balance 450 ml 242.5 ml IV Total 450 ml 492.5 ml Tube Feeding 0 ml 0 ml Output Urine Total 250 ml # Bowel Movements 2 Laboratory Tests 03/02/20 04:15: White Blood Count 7.1, Red Blood Count 3.06L, Hemoglobin 9.5L, Hematocrit 30.0L , Mean Corpuscular Volume 98, Mean Corpuscular Hemoglobin 31.2H, Mean Corpuscular Hemoglobin Concent 31.7L, Red Cell Distribution Width 16.2H, Platelet Count 220, Mean Platelet Volume 7.5, Neutrophils (%) (Auto) 76.0H, Lymphocytes (%) (Auto) 13.7L, Monocytes (%) (Auto) 8.4, Eosinophils (%) (Auto) 1.4, Basophils (%) (Auto) 0.5, Sodium Level 144, Potassium Level 4.6, Chloride Level 110H, Carbon Dioxide Level 25, Anion Gap 9, Blood Urea Nitrogen 24H, Creatinine 0.8, Estimat Glomerular Filtration Rate > 60, Glucose Level 88, Calcium Level 8.1L, Magnesium Level 1.8, Total Bilirubin 0.7, Aspartate Amino Transf (AST/SGOT) 39H, Alanine Aminotransferase (ALT/SGPT) 52, Alkaline Phosphatase 132H, Total Creatine Kinase 107, Total Protein 5.8L, Albumin 1.5L, Globulin 4.3, Albumin/Globulin Ratio 0.3L, Hepatitis A IgM Antibody [Pending], Hepatitis B Surface Antigen [Pending], Hepatitis B Core IgM Antibody [Pending], Hepatitis C Antibody [Pending] Height (Feet): 5 Height (Inches): 5.00 Weight (Pounds): 147 Objective General Appearance: WD/WN, confused EENT: PERRL/EOMI, normal ENT inspection Neck: non-tender, normal alignment. trach c/d/i Cardiovascular: normal peripheral pulses, normal rate Respiratory/Chest: chest wall non-tender, lungs clear, normal breath sounds Abdomen: normal bowel sounds, non tender Edema: no edema noted Arm (L), no edema noted Arm (R) Neurologic: disoriented, unresponsive Skin: normal pigmentation Lymphatic: normal anterior cervical (L), normal anterior cervical (R) Liborio Dugan MD Mar 02, 2020 09:40
--- NOTE | 2020-03-02 09:46 | General Progress Note ---
Assessment/Plan Problem List: (1) Seizure disorder ICD Codes: G40.909 - Epilepsy, unspecified, not intractable,without status epilepticus SNOMED: 659170302 (2) Pulmonary hypertension ICD Codes: I27.20 - Pulmonary hypertension, unspecified SNOMED: 83468259 (3) Respiratory failure ICD Codes: J96.90 - Respiratory failure, unspecified, unspecified whether with hypoxia or hypercapnia SNOMED: 304693400 Qualifiers: Qualified Codes: J96.01 - Acute respiratory failure with hypoxia (4) Severe sepsis ICD Codes: A41.9 - Sepsis, unspecified organism; R65.20 - Severe sepsis without septic shock SNOMED: 01042472 (5) NSTEMI (non-ST elevated myocardial infarction) ICD Codes: I21.4 - Non-ST elevation (NSTEMI) myocardial infarction SNOMED: 42032549 (6) Fever ICD Codes: R50.9 - Fever, unspecified SNOMED: 820065429 (7) Dyspnea ICD Codes: R06.00 - Dyspnea, unspecified SNOMED: 050098285 Status: stable Assessment/Plan: cont vent support resp care/suctioning trach care sz rx monitor for szs/sz precautions gt feeds when cleared by GI dvt/stress ulcer prophylaxis turn q2 resume eliquis if ok with gi Subjective ROS Limited/Unobtainable: Yes Constitutional: Reports: malaise, weakness HEENT: Reports: no symptoms Cardiovascular: Reports: no symptoms Respiratory: Reports: cough, shortness of breath, sputum Gastrointestinal/Abdominal: Reports: difficulty swallowing Genitourinary: Reports: no symptoms Neurologic/Psychiatric: Reports: pre-existing deficit, seizure Endocrine: Reports: no symptoms Hematologic/Lymphatic: Reports: anemia Allergies: Coded Allergies: PENICILLINS (Verified Allergy, Severe, 08/07/12) FISH CONTAINING PRODUCTS (Verified Allergy, Unknown, 06/02/18) Uncoded Allergies: seafood (Allergy, Unknown, 06/02/18) All Systems: reviewed and negative except above Subjective s/p uncomplicated GT placement. on meds. no feeds yet. much more alert. tracks. follows simple commands. no reports of szs. Objective Last 24 Hour Vital Signs Date Time Temp Pulse Resp B/P (MAP) Pulse Ox O2 Delivery O2 Flow Rate FiO2 03/02/20 09:28 73 105/65 03/02/20 09:08 73 14 30 03/02/20 08:00 98.2 76 18 105/65 (78) 100 03/02/20 07:09 92 16 30 03/02/20 04:56 84 18 30 03/02/20 04:00 98.5 78 18 100/67 (78) 100 03/02/20 04:00 82 03/02/20 04:00 30 03/02/20 04:00 Mechanical Ventilator 03/02/20 02:51 88 14 30 03/02/20 00:47 82 17 30 03/02/20 00:00 30 03/02/20 00:00 Mechanical Ventilator 03/02/20 00:00 77 03/02/20 00:00 98.5 71 18 101/72 (82) 100 03/01/20 22:58 85 15 30 03/01/20 21:06 87 17 30 03/01/20 20:45 85 92/66 03/01/20 20:00 Mechanical Ventilator 03/01/20 20:00 98.4 85 18 92/66 (75) 99 03/01/20 20:00 30 03/01/20 19:36 94 03/01/20 19:25 89 15 30 03/01/20 16:00 30 03/01/20 16:00 94 03/01/20 16:00 98.2 99 14 95/61 (72) 100 03/01/20 16:00 Mechanical Ventilator 03/01/20 12:17 95 03/01/20 12:00 98.2 96 16 101/58 (72) 98 03/01/20 12:00 Mechanical Ventilator 03/01/20 12:00 30 Intake and Output 03/01/20 03/02/20 19:00 07:00 Intake Total 450 ml 492.5 ml Output Total 250 ml Balance 450 ml 242.5 ml IV Total 450 ml 492.5 ml Tube Feeding 0 ml 0 ml Output Urine Total 250 ml # Bowel Movements 2 Laboratory Tests 03/02/20 04:15: White Blood Count 7.1, Red Blood Count 3.06L, Hemoglobin 9.5L, Hematocrit 30.0L , Mean Corpuscular Volume 98, Mean Corpuscular Hemoglobin 31.2H, Mean Corpuscular Hemoglobin Concent 31.7L, Red Cell Distribution Width 16.2H, Platelet Count 220, Mean Platelet Volume 7.5, Neutrophils (%) (Auto) 76.0H, Lymphocytes (%) (Auto) 13.7L, Monocytes (%) (Auto) 8.4, Eosinophils (%) (Auto) 1.4, Basophils (%) (Auto) 0.5, Sodium Level 144, Potassium Level 4.6, Chloride Level 110H, Carbon Dioxide Level 25, Anion Gap 9, Blood Urea Nitrogen 24H, Creatinine 0.8, Estimat Glomerular Filtration Rate > 60, Glucose Level 88, Calcium Level 8.1L, Magnesium Level 1.8, Total Bilirubin 0.7, Aspartate Amino Transf (AST/SGOT) 39H, Alanine Aminotransferase (ALT/SGPT) 52, Alkaline Phosphatase 132H, Total Creatine Kinase 107, Total Protein 5.8L, Albumin 1.5L, Globulin 4.3, Albumin/Globulin Ratio 0.3L, Hepatitis A IgM Antibody [Pending], Hepatitis B Surface Antigen [Pending], Hepatitis B Core IgM Antibody [Pending], Hepatitis C Antibody [Pending] Height (Feet): 5 Height (Inches): 5.00 Weight (Pounds): 147 Objective General Appearance: WD/WN, confused EENT: PERRL/EOMI, normal ENT inspection Neck: non-tender, normal alignment. trach c/d/i Cardiovascular: normal peripheral pulses, normal rate Respiratory/Chest: chest wall non-tender, lungs clear, normal breath sounds Abdomen: normal bowel sounds, non tender Edema: no edema noted Arm (L), no edema noted Arm (R) Neurologic: disoriented, unresponsive Skin: normal pigmentation Lymphatic: normal anterior cervical (L), normal anterior cervical (R) Liborio Dugan MD Mar 02, 2020 09:45
--- NOTE | 2020-03-02 10:14 | Infectious Diseases Prog Note ---
Assessment/Plan Assessment/Plan antibiotics : none A 1. acenitobacter pneumonia s/p rx COVID 19 negative 2. respiratory failure s/p tracheostomy 3. neurofibromatosis 4. seizures 5. pulmonary hypertension 6. + blood cultures with coag neg staph likely contaminated P 1. continue off antibiotics 2. will follow up cultures Subjective ROS Limited/Unobtainable: Yes Allergies: Coded Allergies: PENICILLINS (Verified Allergy, Severe, 08/07/12) FISH CONTAINING PRODUCTS (Verified Allergy, Unknown, 06/02/18) Uncoded Allergies: seafood (Allergy, Unknown, 06/02/18) Objective Last 24 Hour Vital Signs Date Time Temp Pulse Resp B/P (MAP) Pulse Ox O2 Delivery O2 Flow Rate FiO2 03/02/20 09:28 73 105/65 03/02/20 09:08 73 14 30 03/02/20 08:00 98.2 76 18 105/65 (78) 100 03/02/20 07:09 92 16 30 03/02/20 04:56 84 18 30 03/02/20 04:00 98.5 78 18 100/67 (78) 100 03/02/20 04:00 82 03/02/20 04:00 30 03/02/20 04:00 Mechanical Ventilator 03/02/20 02:51 88 14 30 03/02/20 00:47 82 17 30 03/02/20 00:00 30 03/02/20 00:00 Mechanical Ventilator 03/02/20 00:00 77 03/02/20 00:00 98.5 71 18 101/72 (82) 100 03/01/20 22:58 85 15 30 03/01/20 21:06 87 17 30 03/01/20 20:45 85 92/66 03/01/20 20:00 Mechanical Ventilator 03/01/20 20:00 98.4 85 18 92/66 (75) 99 03/01/20 20:00 30 03/01/20 19:36 94 03/01/20 19:25 89 15 30 03/01/20 16:00 30 03/01/20 16:00 94 03/01/20 16:00 98.2 99 14 95/61 (72) 100 03/01/20 16:00 Mechanical Ventilator 03/01/20 12:17 95 03/01/20 12:00 98.2 96 16 101/58 (72) 98 03/01/20 12:00 Mechanical Ventilator 03/01/20 12:00 30 Height (Feet): 5 Height (Inches): 5.00 Weight (Pounds): 147 HEENT: status post trach Respiratory/Chest: lungs clear Cardiovascular: normal rate, regular rhythm, no gallop/murmur Abdomen: soft, non tender, other - GT Extremities: no edema, other - right arm PICC Microbiology Date/Time Source Procedure Growth Status 02/29/20 22:00 Nasopharynx SARS-CoV-2 RdRp Gene Assay - Final Complete Laboratory Tests Test 03/02/20 04:15 White Blood Count 7.1 K/UL (4.8-10.8) Red Blood Count 3.06 M/UL (4.20-5.40) L Hemoglobin 9.5 G/DL (12.0-16.0) L Hematocrit 30.0 % (37.0-47.0) L Mean Corpuscular Volume 98 FL (80-99) Mean Corpuscular Hemoglobin 31.2 PG (27.0-31.0) H Mean Corpuscular Hemoglobin Concent 31.7 G/DL (32.0-36.0) L Red Cell Distribution Width 16.2 % (11.6-14.8) H Platelet Count 220 K/UL (150-450) Mean Platelet Volume 7.5 FL (6.5-10.1) Neutrophils (%) (Auto) 76.0 % (45.0-75.0) H Lymphocytes (%) (Auto) 13.7 % (20.0-45.0) L Monocytes (%) (Auto) 8.4 % (1.0-10.0) Eosinophils (%) (Auto) 1.4 % (0.0-3.0) Basophils (%) (Auto) 0.5 % (0.0-2.0) Sodium Level 144 MMOL/L (136-145) Potassium Level 4.6 MMOL/L (3.5-5.1) Chloride Level 110 MMOL/L (98-107) H Carbon Dioxide Level 25 MMOL/L (21-32) Anion Gap 9 mmol/L (5-15) Blood Urea Nitrogen 24 mg/dL (7-18) H Creatinine 0.8 MG/DL (0.55-1.30) Estimat Glomerular Filtration Rate > 60 mL/min (>60) Glucose Level 88 MG/DL (74-106) Calcium Level 8.1 MG/DL (8.5-10.1) L Magnesium Level 1.8 MG/DL (1.8-2.4) Total Bilirubin 0.7 MG/DL (0.2-1.0) Aspartate Amino Transf (AST/SGOT) 39 U/L (15-37) H Alanine Aminotransferase (ALT/SGPT) 52 U/L (12-78) Alkaline Phosphatase 132 U/L (46-116) H Total Creatine Kinase 107 U/L (26-308) Total Protein 5.8 G/DL (6.4-8.2) L Albumin 1.5 G/DL (3.4-5.0) L Globulin 4.3 g/dL Albumin/Globulin Ratio 0.3 (1.0-2.7) L Hepatitis A IgM Antibody Pending Hepatitis B Surface Antigen Pending Hepatitis B Core IgM Antibody Pending Hepatitis C Antibody Pending Current Medications Medications (Trade) Dose Ordered Sig/Brian Route PRN Reason Start Time Stop Time Status Last Admin Dose Admin Acetaminophen (Tylenol) 650 mg Q4H PRN NG Mild Pain (Pain Scale 1-3) 02/29/20 17:30 03/15/20 17:29 Acetaminophen (Tylenol) 650 mg Q4H PRN NG Temp >100.5 02/29/20 18:00 03/15/20 17:59 02/29/20 22:43 Al Hydroxide/Mg Hydroxide (Mylanta) 30 ml Q4H PRN ORAL Dyspepsia 02/29/20 18:00 03/15/20 17:59 Artificial Tears (Lacri-Lube) 1 applic EVERY 8 HOURS BOTH EYES 02/29/20 22:00 03/18/20 09:29 03/02/20 05:05 Carbamazepine (TEGretol) 200 mg TID NG 03/01/20 09:00 03/31/20 08:59 03/02/20 09:27 Chlorhexidine Gluconate (Gricelda-Hex 2%) 1 applic DAILY@2000 TOPIC 02/29/20 20:00 05/26/20 19:59 03/01/20 20:44 Dextrose/ Electrolytes 1,000 ml @ 75 mls/hr [id number] IV 03/01/20 01:30 03/31/20 01:29 03/02/20 03:46 Gabapentin (Neurontin) 100 mg THREE TIMES A DAY ORAL 03/01/20 09:00 03/31/20 08:59 03/02/20 09:25 Heparin Sodium (Porcine) (Heparin 5000 units/ml) 5,000 units EVERY 12 HOURS SUBQ 02/29/20 21:00 04/12/20 20:59 03/01/20 09:04 Lansoprazole (Prevacid) 30 mg DAILY NG 03/01/20 09:00 03/15/20 08:59 03/02/20 09:25 Levetiracetam 100 ml @ 400 mls/hr Q12HR IVPB 02/29/20 21:00 05/19/20 08:59 03/02/20 09:24 Magnesium Hydroxide (Mom) 30 ml TIDPRN PRN NG Constipation 02/29/20 18:00 03/30/20 17:59 Metoclopramide HCl (Reglan) 5 mg Q6H IVP 02/29/20 20:00 03/26/20 19:59 03/02/20 09:42 Metoclopramide HCl (Reglan) 5 mg Q6H PRN IVP Nausea & Vomiting 02/29/20 18:00 03/20/20 17:59 Metoprolol Tartrate (Lopressor) 25 mg Q12HR ORAL 02/29/20 21:00 05/15/20 20:59 03/02/20 09:28 Patient Own Medication (Patient's Own Med) 1 ea DAILY ORAL 03/01/20 09:00 03/31/20 08:59 03/02/20 09:25 Patient Own Medication (Patient's Own Med) 1 ea Q12HR ORAL 02/29/20 21:00 03/30/20 20:59 03/02/20 09:25 Sildenafil Citrate (Revatio) 20 mg Q8HR ORAL 03/01/20 06:00 05/30/20 05:59 03/02/20 05:05 Maci Deleon MD Mar 02, 2020 10:14
[2020-03-02 12:00] VITALS: BP 112/70
--- NOTE | 2020-03-02 12:41 | Surgery Progress Note ---
Surgery Progress Note Subjective Procedure Performed tracheostomy Symptoms: improved, tolerating diet, passing flatus, BM Objective Last 24 Hour Vital Signs Date Time Temp Pulse Resp B/P (MAP) Pulse Ox O2 Delivery O2 Flow Rate FiO2 03/02/20 12:00 98.2 80 18 112/70 (84) 100 03/02/20 11:00 74 16 30 03/02/20 09:28 73 105/65 03/02/20 09:08 73 14 30 03/02/20 08:00 Mechanical Ventilator 03/02/20 08:00 30 03/02/20 08:00 98.2 76 18 105/65 (78) 100 03/02/20 07:38 88 03/02/20 07:09 92 16 30 03/02/20 04:56 84 18 30 03/02/20 04:00 98.5 78 18 100/67 (78) 100 03/02/20 04:00 82 03/02/20 04:00 30 03/02/20 04:00 Mechanical Ventilator 03/02/20 02:51 88 14 30 03/02/20 00:47 82 17 30 03/02/20 00:00 30 03/02/20 00:00 Mechanical Ventilator 03/02/20 00:00 77 03/02/20 00:00 98.5 71 18 101/72 (82) 100 03/01/20 22:58 85 15 30 03/01/20 21:06 87 17 30 03/01/20 20:45 85 92/66 03/01/20 20:00 Mechanical Ventilator 03/01/20 20:00 98.4 85 18 92/66 (75) 99 03/01/20 20:00 30 03/01/20 19:36 94 03/01/20 19:25 89 15 30 03/01/20 16:00 30 03/01/20 16:00 94 03/01/20 16:00 98.2 99 14 95/61 (72) 100 03/01/20 16:00 Mechanical Ventilator I&O Intake and Output 03/01/20 03/02/20 19:00 07:00 Intake Total 450 ml 492.5 ml Output Total 250 ml Balance 450 ml 242.5 ml IV Total 450 ml 492.5 ml Tube Feeding 0 ml 0 ml Output Urine Total 250 ml # Bowel Movements 2 Dressing: dry Wound: clean Cardiovascular: RSR Respiratory: clear Abdomen: soft, non-tender, present bowel sounds Extremities: no edema, no tenderness, no cyanosis Laboratory Tests Test 03/02/20 04:15 White Blood Count 7.1 K/UL (4.8-10.8) Red Blood Count 3.06 M/UL (4.20-5.40) L Hemoglobin 9.5 G/DL (12.0-16.0) L Hematocrit 30.0 % (37.0-47.0) L Mean Corpuscular Volume 98 FL (80-99) Mean Corpuscular Hemoglobin 31.2 PG (27.0-31.0) H Mean Corpuscular Hemoglobin Concent 31.7 G/DL (32.0-36.0) L Red Cell Distribution Width 16.2 % (11.6-14.8) H Platelet Count 220 K/UL (150-450) Mean Platelet Volume 7.5 FL (6.5-10.1) Neutrophils (%) (Auto) 76.0 % (45.0-75.0) H Lymphocytes (%) (Auto) 13.7 % (20.0-45.0) L Monocytes (%) (Auto) 8.4 % (1.0-10.0) Eosinophils (%) (Auto) 1.4 % (0.0-3.0) Basophils (%) (Auto) 0.5 % (0.0-2.0) Sodium Level 144 MMOL/L (136-145) Potassium Level 4.6 MMOL/L (3.5-5.1) Chloride Level 110 MMOL/L (98-107) H Carbon Dioxide Level 25 MMOL/L (21-32) Anion Gap 9 mmol/L (5-15) Blood Urea Nitrogen 24 mg/dL (7-18) H Creatinine 0.8 MG/DL (0.55-1.30) Estimat Glomerular Filtration Rate > 60 mL/min (>60) Glucose Level 88 MG/DL (74-106) Calcium Level 8.1 MG/DL (8.5-10.1) L Magnesium Level 1.8 MG/DL (1.8-2.4) Total Bilirubin 0.7 MG/DL (0.2-1.0) Aspartate Amino Transf (AST/SGOT) 39 U/L (15-37) H Alanine Aminotransferase (ALT/SGPT) 52 U/L (12-78) Alkaline Phosphatase 132 U/L (46-116) H Total Creatine Kinase 107 U/L (26-308) Total Protein 5.8 G/DL (6.4-8.2) L Albumin 1.5 G/DL (3.4-5.0) L Globulin 4.3 g/dL Albumin/Globulin Ratio 0.3 (1.0-2.7) L Hepatitis A IgM Antibody Pending Hepatitis B Surface Antigen Pending Hepatitis B Core IgM Antibody Pending Hepatitis C Antibody Pending Plan Problems: (1) Respiratory failure Assessment & Plan: Respiratory insufficiency requiring prolonged ventilatory support currently remains on vent support unable to wean safely. Patient with altered level consciousness this time not responsive. Patient is a candidate for a tracheostomy. Pulmonology discussed with the family and they have agreed to proceed. Will optimize and plan for surgical intervention soon. Tracheostomy indicated and recommended. Thank you allowing me to participate in patient's care will follow with recommendations s/p trach improving labs noted trach okay weaning vent peg sub acute eval for placement improving more alert and responsive downgraded comfortable Bassam Hui Mar 02, 2020 12:41
--- NOTE | 2020-03-02 13:24 | Neurology Progress Note ---
Interim History Interim History Interim History Ms. Roseann Srinivasan is a 49-year-old, black lady, of unknown handedness, who does have a past history of neurofibromatosis, a seizure disorder, pulmonary hypertension, deafness of an unknown degree, and visual problems of an unknown degree. She was hospitalized on 02/13/2020 for an altered mental state preceded by failure to thrive, fever and possibly shaking chills, and a global decline in function. It was felt that she may have a urinary tract infection. She was intubated and artificially ventilated, started on intravenous fluids, and antibiotics, and was observed in the ICU. She does have a history of seizures but has not been observed to have any seizures during her hospitalization. She had her tracheostomy on 02/27/2020. She was stabilized and then moved out of the ICU. She is minimally responsive today. She moves her eyes and head towards sound stimuli. She however is unable to follow simple commands. There has been no significant change in her medical condition. It is still unclear as to what exactly her baseline neurological function was prior to this admission. Review of Systems Neuro Review of Systems Unable to obtain. Objective Physical Exam Last Vital Signs Date Time Temp Pulse Resp B/P (MAP) Pulse Ox O2 Delivery O2 Flow Rate FiO2 03/02/20 12:30 81 20 30 03/02/20 12:00 98.2 112/70 (84) 100 03/02/20 12:00 Mechanical Ventilator Laboratory Tests Test 03/02/20 04:15 White Blood Count 7.1 K/UL (4.8-10.8) Red Blood Count 3.06 M/UL (4.20-5.40) L Hemoglobin 9.5 G/DL (12.0-16.0) L Hematocrit 30.0 % (37.0-47.0) L Mean Corpuscular Volume 98 FL (80-99) Mean Corpuscular Hemoglobin 31.2 PG (27.0-31.0) H Mean Corpuscular Hemoglobin Concent 31.7 G/DL (32.0-36.0) L Red Cell Distribution Width 16.2 % (11.6-14.8) H Platelet Count 220 K/UL (150-450) Mean Platelet Volume 7.5 FL (6.5-10.1) Neutrophils (%) (Auto) 76.0 % (45.0-75.0) H Lymphocytes (%) (Auto) 13.7 % (20.0-45.0) L Monocytes (%) (Auto) 8.4 % (1.0-10.0) Eosinophils (%) (Auto) 1.4 % (0.0-3.0) Basophils (%) (Auto) 0.5 % (0.0-2.0) Sodium Level 144 MMOL/L (136-145) Potassium Level 4.6 MMOL/L (3.5-5.1) Chloride Level 110 MMOL/L (98-107) H Carbon Dioxide Level 25 MMOL/L (21-32) Anion Gap 9 mmol/L (5-15) Blood Urea Nitrogen 24 mg/dL (7-18) H Creatinine 0.8 MG/DL (0.55-1.30) Estimat Glomerular Filtration Rate > 60 mL/min (>60) Glucose Level 88 MG/DL (74-106) Calcium Level 8.1 MG/DL (8.5-10.1) L Magnesium Level 1.8 MG/DL (1.8-2.4) Total Bilirubin 0.7 MG/DL (0.2-1.0) Aspartate Amino Transf (AST/SGOT) 39 U/L (15-37) H Alanine Aminotransferase (ALT/SGPT) 52 U/L (12-78) Alkaline Phosphatase 132 U/L (46-116) H Total Creatine Kinase 107 U/L (26-308) Total Protein 5.8 G/DL (6.4-8.2) L Albumin 1.5 G/DL (3.4-5.0) L Globulin 4.3 g/dL Albumin/Globulin Ratio 0.3 (1.0-2.7) L Hepatitis A IgM Antibody Pending Hepatitis B Surface Antigen Pending Hepatitis B Core IgM Antibody Pending Hepatitis C Antibody Pending Neurologic Exam Objective PHYSICAL EXAMINATION: GENERAL: She is a well-developed, relatively well-nourished, black lady, lying in bed, connected to ventilator via a tracheostomy. HEAD: Normocephalic and atraumatic. NECK: No neck rigidity was observed. EENT: Her chemosis was significantly better. SPINE: Cervical, thoracic and lumbosacral spine revealed no tenderness or paraspinal muscle spasm. NEUROLOGIC EXAMINATION: MENTAL STATUS EXAMINATION: She opened her eyes on vocal stimulation. She also turned her eyes and head towards the direction of sound. She responded to deep pain with minimal nonpurposeful withdrawal in both upper extremities and no response in both lower extremities. Further mental status testing was impossible. SPEECH: Could not be tested. LANGUAGE: Could not be tested. CRANIAL NERVE EXAMINATION: II: She did not blink to threat. III, IV, : External ocular movements were present but restricted on oculocephalic maneuvers. The pupils were 3 mm in diameter equal, round, regular and did not react to light. V & VII: The corneal reflexes were absent bilaterally. However she moved her head when the cornea was stimulated. VIII: She did respond to sounds with eye opening. She had no nystagmus. IX & X: The gag reflex was not tested. XI: The sternocleidomastoids and trapezii did not function. XII: The tongue could not be examined properly. MOTOR SYSTEM: The tone was diminished in all 4 extremities. Examination of muscle mass revealed generalized muscle wasting. Examination of power was impossible to perform because even on applying deep painful stimuli the only response seen was nonpurposeful withdrawal in both upper extremities. SENSORY EXAMINATION: She only responded to deep pain with nonpurposeful withdrawal in both upper extremities. REFLEXES: 0 at the biceps, triceps, brachioradialis, knees and ankles. The plantar responses were mute bilaterally. COORDINATION, STANCE & GAIT: Not be tested. ABNORMAL MOVEMENTS: None Impression/Recommendations Diagnostic Impression DIAGNOSTIC IMPRESSION: 1. Ms. Roseann Srinivasan is a 49-year-old, black lady, of unknown handedness, who does have a past history of neurofibromatosis, a seizure disorder, pulmonary hypertension, deafness of an unknown degree, and visual problems of an unknown degree. 2. She was hospitalized on 02/13/2020 and altered mental state preceded by failure to thrive, fever and possibly shaking chills, and a global decline in function. It was felt that she may have urinary tract infection. She was intubated and artificially ventilated, started on intravenous fluids, and antibiotics, and was observed in the ICU. 3. She does have a history of seizures but has not been observed to have any seizures during hospitalization. 4. An EEG performed on 02/18/2020 revealed: An encephalopathy of a moderate degree with a toxic metabolic component. Right temporal focal dysfunction. A right temporal epileptogenic focus with phase reversals in the mid temporal region. 5. She had her tracheostomy on 02/27/2020 and it was uneventful. 6. She is minimally responsive today. She moves her eyes and head towards sound stimuli. She however is unable to follow simple commands. There has been no significant change in her medical condition. It is still unclear as to what exactly her baseline neurological function was prior to this admission. 7. On neurologic examination, at this time she opens her eyes on vocal stimulation. She also turns her eyes and head towards the direction of sound. She responds to deep pain with minimal nonpurposeful withdrawal in both upper extremities and no response in both lower extremities. Further mental status testing is impossible. She does have brainstem reflexes in the form of eye movements on oculocephalic maneuvers, and spontaneous ventilations. Her deep tendon reflexes are globally absent and the plantar responses mute. 8. Her latest laboratory data on my initial evaluation revealed an anemia with a hemoglobin of 10.1 g, AST elevated at 49, alkaline phosphate is elevated at 198, proBNP elevated at 11,463, normal PO2 at 83, minimally low PCO2 at 33, normal TSH, and a therapeutic Tegretol level at 10.2. 9. Further laboratory tests have revealed a normal vitamin B12 level, normal folate, ammonia level elevated at 46, and an elevated ESR at 90. 10. The CT scan of the brain without contrast performed on 02/21/2020 revealed "Innumerable bilateral meningiomas, white matter edema of the left cerebellar hemisphere and the right cerebral hemisphere, mass-effect upon the right lateral ventricle with shift of the midline structures from the right to the left, loss of salas-white differentiation, but no acute pathology." The findings are very similar to a scan performed in November 2019. 11. The patient's history, neurological examination, CT scan of the brain and EEG are most consistent with a significant toxic metabolic encephalopathy superimposed on significant structural brain disease that seems to be old. At this point in time it is unknown if the patient may also have acute intracranial pathology as an MRI scan cannot be obtained. 12. With regards to her seizure disorder, the patient has not had any clinical seizures while hospitalized and in addition the EEG also did not reveal any seizures but did reveal interictal phenomena emanating from the right temporal region. Recommendations RECOMMENDATIONS: 1. Continue present management. 2. Continue prehospitalization anticonvulsant regimen. 3. Try to determine the patient's prehospitalization baseline and to when exactly she was able to talk and walk. 4. Observe closely. Otoniel Ellis M.D., M.S.P.H. Neurologist & Clinical Neurophysiologist Otoniel lElis MD Mar 02, 2020 13:24
--- NOTE | 2020-03-02 14:41 | General Progress Note ---
Assessment/Plan Assessment/Plan: Assessment - Resp failure -s/p PEG - Shock - s/p TX - anasarca - Anemia - abnormal LFT Recommendations - Begin TF today - OK to restart Eliquis from GI standpoint - Vent - Supportive care - f/u hepatitis serologies - abd ultrasound Subjective Allergies: Coded Allergies: PENICILLINS (Verified Allergy, Severe, 08/07/12) FISH CONTAINING PRODUCTS (Verified Allergy, Unknown, 06/02/18) Uncoded Allergies: seafood (Allergy, Unknown, 06/02/18) Subjective Above noted NAD s/p PEG yesterday more awake Objective Last 24 Hour Vital Signs Date Time Temp Pulse Resp B/P (MAP) Pulse Ox O2 Delivery O2 Flow Rate FiO2 03/02/20 12:30 81 20 30 03/02/20 12:00 98.2 80 18 112/70 (84) 100 03/02/20 12:00 30 03/02/20 12:00 74 03/02/20 12:00 Mechanical Ventilator 03/02/20 11:00 74 16 30 03/02/20 09:28 73 105/65 03/02/20 09:08 73 14 30 03/02/20 08:00 Mechanical Ventilator 03/02/20 08:00 30 03/02/20 08:00 98.2 76 18 105/65 (78) 100 03/02/20 07:38 88 03/02/20 07:09 92 16 30 03/02/20 04:56 84 18 30 03/02/20 04:00 98.5 78 18 100/67 (78) 100 03/02/20 04:00 82 03/02/20 04:00 30 03/02/20 04:00 Mechanical Ventilator 03/02/20 02:51 88 14 30 03/02/20 00:47 82 17 30 03/02/20 00:00 30 03/02/20 00:00 Mechanical Ventilator 03/02/20 00:00 77 03/02/20 00:00 98.5 71 18 101/72 (82) 100 03/01/20 22:58 85 15 30 03/01/20 21:06 87 17 30 03/01/20 20:45 85 92/66 03/01/20 20:00 Mechanical Ventilator 03/01/20 20:00 98.4 85 18 92/66 (75) 99 03/01/20 20:00 30 03/01/20 19:36 94 03/01/20 19:25 89 15 30 03/01/20 16:00 30 03/01/20 16:00 94 03/01/20 16:00 98.2 99 14 95/61 (72) 100 03/01/20 16:00 Mechanical Ventilator Intake and Output 03/01/20 03/02/20 19:00 07:00 Intake Total 450 ml 492.5 ml Output Total 250 ml Balance 450 ml 242.5 ml IV Total 450 ml 492.5 ml Tube Feeding 0 ml 0 ml Output Urine Total 250 ml # Bowel Movements 2 Laboratory Tests 03/02/20 04:15: White Blood Count 7.1, Red Blood Count 3.06L, Hemoglobin 9.5L, Hematocrit 30.0L , Mean Corpuscular Volume 98, Mean Corpuscular Hemoglobin 31.2H, Mean Corpuscular Hemoglobin Concent 31.7L, Red Cell Distribution Width 16.2H, Platelet Count 220, Mean Platelet Volume 7.5, Neutrophils (%) (Auto) 76.0H, Lymphocytes (%) (Auto) 13.7L, Monocytes (%) (Auto) 8.4, Eosinophils (%) (Auto) 1.4, Basophils (%) (Auto) 0.5, Sodium Level 144, Potassium Level 4.6, Chloride Level 110H, Carbon Dioxide Level 25, Anion Gap 9, Blood Urea Nitrogen 24H, Creatinine 0.8, Estimat Glomerular Filtration Rate > 60, Glucose Level 88, Calcium Level 8.1L, Magnesium Level 1.8, Total Bilirubin 0.7, Aspartate Amino Transf (AST/SGOT) 39H, Alanine Aminotransferase (ALT/SGPT) 52, Alkaline Phosphatase 132H, Total Creatine Kinase 107, Total Protein 5.8L, Albumin 1.5L, Globulin 4.3, Albumin/Globulin Ratio 0.3L, Hepatitis A IgM Antibody [Pending], Hepatitis B Surface Antigen [Pending], Hepatitis B Core IgM Antibody [Pending], Hepatitis C Antibody [Pending] Height (Feet): 5 Height (Inches): 5.00 Weight (Pounds): 147 Objective WDWN AA woman NCAT, (+) Trach and NGT Coarse BS RR abd soft NT ND (++) edema Lilly Au MD Mar 02, 2020 14:41
[2020-03-02 16:00] VITALS: BP 103/64
--- NOTE | 2020-03-02 16:44 | Diagnostic Imaging Report ---
Indication: Shortness of breath Technique: One view of the chest Comparison: 02/25/2020 Findings: There appears to be decreased pleural fluid on the left. There appears to be increased infiltrate and pleural fluid on the right. The heart remains borderline enlarged. Previously demonstrated endotracheal tube is been removed, replaced with a tracheostomy. Previously demonstrated orogastric tube is no longer evident. Impression: Decreased left pleural effusion Increased right pleural effusion and possibly basilar infiltrate Interim tracheostomy placement Interim orogastric tube removal
--- NOTE | 2020-03-02 16:44 | Diagnostic Imaging Report ---
Indication: Abnormal liver function tests Technique: Perea-scale and duplex images of the upper abdomen were obtained. Limited exam performed due to patient being Covid positive Comparison: 06/23/2017 Findings: Small amount of free intraperitoneal fluid demonstrated. Bilateral pleural effusions demonstrated. Gallbladder demonstrates no stones. There is borderline gallbladder wall thickening, gallbladder wall just over 3 mm thick. Sonographic Vera sign could not be assessed, patient unresponsive. Common bile duct measures mm in diameter. No intrahepatic biliary ductal dilatation. Liver demonstrates normal echogenicity, no focal abnormality. Portal vein and hepatic veins are patent. Pancreas is unremarkable. Spleen is unremarkable. Left kidney measures cm in length. Right kidney measures cm length. Both kidneys demonstrate slightly increased echogenicity. There is no hydronephrosis. Possible small nonobstructive renal calculi are demonstrated on the left . Abdominal aorta is partially obscured by bowel gas, visualized portions are non-aneurysmal . Impression: Bilateral pleural effusions. Small amount of ascites Negative for gallstones. Borderline gallbladder wall thickening likely related to hemodynamic issues, acute acalculous cholecystitis as a possible Echogenic kidneys, consistent with medical renal disease Possible small nonobstructive left intrarenal calculi Note inability to visualize portions of the abdominal aorta
[2020-03-02] MEDS ORDERED: Tubing IV Secondary IV ONE (18:37)
[2020-03-02 20:00] VITALS: BP 110/71
[2020-03-02] MEDS: Dyna-Hex 2% Top Sol 2oz TOPIC SCH (20:25)
[2020-03-03] VITALS: BP 97/61
[2020-03-03] MEDS: Metoclopramide 10mg/2ml Inj IVP SCH ×4 (01:39→20:39)
[2020-03-03 04:00] VITALS: BP 98/59
[2020-03-03] MEDS: Revatio 20mg tab ORAL SCH ×3 (05:05→21:13)
[2020-03-03] MEDS: Lacri-Lube Opth Oint 3.5gm BOTH EYES SCH ×3 (05:05→21:13)
[2020-03-03 07:54] VITALS: BP 99/69
--- NOTE | 2020-03-03 07:59 | General Progress Note ---
Assessment/Plan Assessment/Plan: Assessment - Resp failure -s/p PEG - Shock - s/p VT - anasarca - Anemia - abnormal LFT Recommendations - TF - OK to restart Eliquis from GI standpoint - Vent - Supportive care - f/u hepatitis serologies Subjective ROS Limited/Unobtainable: No Allergies: Coded Allergies: PENICILLINS (Verified Allergy, Severe, 08/07/12) FISH CONTAINING PRODUCTS (Verified Allergy, Unknown, 06/02/18) Uncoded Allergies: seafood (Allergy, Unknown, 06/02/18) Objective Last 24 Hour Vital Signs Date Time Temp Pulse Resp B/P (MAP) Pulse Ox O2 Delivery O2 Flow Rate FiO2 03/03/20 07:54 99.0 90 13 99/69 (79) 98 03/03/20 05:16 95 19 30 03/03/20 04:00 Mechanical Ventilator 03/03/20 04:00 97.4 77 16 98/59 (72) 100 03/03/20 04:00 30 03/03/20 04:00 89 03/03/20 03:12 99 18 30 03/03/20 01:24 85 16 30 03/03/20 00:00 97.1 72 15 97/61 (73) 100 03/03/20 00:00 Mechanical Ventilator 03/02/20 23:32 86 03/02/20 23:13 96 18 30 03/02/20 20:59 93 20 30 03/02/20 20:27 91 110/70 03/02/20 20:00 98.0 78 18 110/71 (84) 100 03/02/20 20:00 Mechanical Ventilator 03/02/20 20:00 30 03/02/20 19:29 89 03/02/20 19:29 91 13 30 03/02/20 16:54 70 15 30 03/02/20 16:00 82 03/02/20 16:00 30 03/02/20 16:00 Mechanical Ventilator 03/02/20 16:00 97.7 84 18 103/64 (77) 100 03/02/20 14:58 83 13 30 03/02/20 12:30 81 20 30 03/02/20 12:00 98.2 80 18 112/70 (84) 100 03/02/20 12:00 30 03/02/20 12:00 74 03/02/20 12:00 Mechanical Ventilator 03/02/20 11:00 74 16 30 03/02/20 09:28 73 105/65 03/02/20 09:08 73 14 30 03/02/20 08:00 Mechanical Ventilator 03/02/20 08:00 30 03/02/20 08:00 98.2 76 18 105/65 (78) 100 Intake and Output 03/02/20 03/03/20 19:00 07:00 Intake Total 975 ml 690 ml Output Total 200 ml 200 ml Balance 775 ml 490 ml Free Water 20 ml 200 ml IV Total 775 ml 100 ml Tube Feeding 180 ml 390 ml Output Urine Total 200 ml 200 ml # Bowel Movements 3 Height (Feet): 5 Height (Inches): 5.00 Weight (Pounds): 147 General Appearance: lethargic EENT: normal ENT inspection Neck: supple Cardiovascular: normal rate Respiratory/Chest: decreased breath sounds Abdomen: normal bowel sounds, non tender, soft Extremities: non-tender Ricki Alvarado MD Mar 03, 2020 07:59
[2020-03-03] MEDS: OPSUMIT 10 MG ORAL SCH (08:38)
[2020-03-03] MEDS: SELEXIPAG ORAL SCH ×2 (08:38→20:31)
[2020-03-03] MEDS: Heparin 5000 units/ml inj SUBQ SCH (08:38)
[2020-03-03] MEDS: levETIRAcetam 1,000mg/NS100ml 100 ML IVPB SCH ×2 (08:39→20:31)
[2020-03-03] MEDS: carBAMazepine 200mg tab NG SCH ×3 (08:39→18:02)
--- NOTE | 2020-03-03 09:51 | Pulmonology Progress Note ---
Subjective ROS Limited/Unobtainable: No Constitutional: Reports: fever, other - low grade fever last night Gastrointestinal/Abdominal: Reports: other - had EGD & PEG placement today Allergies: Coded Allergies: PENICILLINS (Verified Allergy, Severe, 08/07/12) FISH CONTAINING PRODUCTS (Verified Allergy, Unknown, 06/02/18) Uncoded Allergies: seafood (Allergy, Unknown, 06/02/18) All Systems: reviewed and negative except above Objective Last 24 Hour Vital Signs Date Time Temp Pulse Resp B/P (MAP) Pulse Ox O2 Delivery O2 Flow Rate FiO2 03/03/20 09:05 87 15 30 03/03/20 08:38 90 99/69 03/03/20 08:00 30 03/03/20 08:00 Mechanical Ventilator 03/03/20 08:00 86 03/03/20 07:54 99.0 90 13 99/69 (79) 98 03/03/20 07:10 90 13 30 03/03/20 05:16 95 19 30 03/03/20 04:00 Mechanical Ventilator 03/03/20 04:00 97.4 77 16 98/59 (72) 100 03/03/20 04:00 30 03/03/20 04:00 89 03/03/20 03:12 99 18 30 03/03/20 01:24 85 16 30 03/03/20 00:00 97.1 72 15 97/61 (73) 100 03/03/20 00:00 Mechanical Ventilator 03/02/20 23:32 86 03/02/20 23:13 96 18 30 03/02/20 20:59 93 20 30 03/02/20 20:27 91 110/70 03/02/20 20:00 98.0 78 18 110/71 (84) 100 03/02/20 20:00 Mechanical Ventilator 03/02/20 20:00 30 03/02/20 19:29 89 03/02/20 19:29 91 13 30 03/02/20 16:54 70 15 30 03/02/20 16:00 82 03/02/20 16:00 30 03/02/20 16:00 Mechanical Ventilator 03/02/20 16:00 97.7 84 18 103/64 (77) 100 03/02/20 14:58 83 13 30 03/02/20 12:30 81 20 30 03/02/20 12:00 98.2 80 18 112/70 (84) 100 03/02/20 12:00 30 03/02/20 12:00 74 03/02/20 12:00 Mechanical Ventilator 03/02/20 11:00 74 16 30 Intake and Output 03/02/20 03/03/20 19:00 07:00 Intake Total 975 ml 690 ml Output Total 200 ml 200 ml Balance 775 ml 490 ml Free Water 20 ml 200 ml IV Total 775 ml 100 ml Tube Feeding 180 ml 390 ml Output Urine Total 200 ml 200 ml # Bowel Movements 3 Microbiology Date/Time Source Procedure Growth Status 02/29/20 22:00 Nasopharynx SARS-CoV-2 RdRp Gene Assay - Final Complete Current Medications Medications (Trade) Dose Ordered Sig/Brian Route PRN Reason Start Time Stop Time Status Last Admin Dose Admin Acetaminophen (Tylenol) 650 mg Q4H PRN NG Mild Pain (Pain Scale 1-3) 02/29/20 17:30 03/15/20 17:29 Acetaminophen (Tylenol) 650 mg Q4H PRN NG Temp >100.5 02/29/20 18:00 03/15/20 17:59 02/29/20 22:43 Al Hydroxide/Mg Hydroxide (Mylanta) 30 ml Q4H PRN ORAL Dyspepsia 02/29/20 18:00 03/15/20 17:59 Artificial Tears (Lacri-Lube) 1 applic EVERY 8 HOURS BOTH EYES 02/29/20 22:00 03/18/20 09:29 03/03/20 05:05 Carbamazepine (TEGretol) 200 mg TID NG 03/01/20 09:00 03/31/20 08:59 03/03/20 08:39 Chlorhexidine Gluconate (Gricelda-Hex 2%) 1 applic DAILY@1999 TOPIC 02/29/20 20:00 05/26/20 19:59 03/02/20 20:25 Gabapentin (Neurontin) 100 mg THREE TIMES A DAY ORAL 03/01/20 09:00 03/31/20 08:59 03/03/20 08:38 Heparin Sodium (Porcine) (Heparin 5000 units/ml) 5,000 units EVERY 12 HOURS SUBQ 02/29/20 21:00 04/12/20 20:59 03/03/20 08:38 Lansoprazole (Prevacid) 30 mg DAILY NG 03/01/20 09:00 03/15/20 08:59 03/03/20 08:39 Levetiracetam 100 ml @ 400 mls/hr Q12HR IVPB 02/29/20 21:00 05/19/20 08:59 03/03/20 08:39 Magnesium Hydroxide (Mom) 30 ml TIDPRN PRN NG Constipation 02/29/20 18:00 03/30/20 17:59 Metoclopramide HCl (Reglan) 5 mg Q6H IVP 02/29/20 20:00 03/26/20 19:59 03/03/20 08:39 Metoclopramide HCl (Reglan) 5 mg Q6H PRN IVP Nausea & Vomiting 02/29/20 18:00 03/20/20 17:59 Metoprolol Tartrate (Lopressor) 25 mg Q12HR ORAL 02/29/20 21:00 05/15/20 20:59 03/02/20 20:27 Patient Own Medication (Patient's Own Med) 1 ea DAILY ORAL 03/01/20 09:00 03/31/20 08:59 03/03/20 08:38 Patient Own Medication (Patient's Own Med) 1 ea Q12HR ORAL 02/29/20 21:00 03/30/20 20:59 03/03/20 08:38 Sildenafil Citrate (Revatio) 20 mg Q8HR ORAL 03/01/20 06:00 05/30/20 05:59 03/03/20 05:05 Assessment/Plan Assessment/Plan Pulmonary Progress Note Assessment/Plan Assessment/Plan respiratory failure s/p trach pneumonia improved by CXR pulmonary hypertension elevated troponin possible NSTEMI paraplegia hypoxemia seizure history brain masses, chronic moderate PCM s/pGT PLAN trach care noted GT care IV antibiotics noted imaging noted respiratory care and nursing care noted Ventilatory support on- unable to wean mental status remains poor and not improved monitor acid base and adjust supportive care suction as needed monitor heart rate seizure meds- as is oxygen therapy prognosis same nutrition off load and monitor skin update family as to care and placement will need subacute care when stable medications/laboratory data/nursing notes reviewed in detail note reviewed and edited care discussed with RN and RT Vital Signs noted Labs noted Objective: WDWN NAD on vent, trach in place reduced breath sounds bilaterally without rhonchi or wheeze [id number] without MRG NABS nontender GT no CCE nonfocal poor LOC reduced ROM skin noted reviewed and edited feeding tube in place Marcus Campbell MD Mar 03, 2020 09:51
--- NOTE | 2020-03-03 10:38 | Infectious Diseases Prog Note ---
Assessment/Plan Assessment/Plan antibiotics : none A 1. acenitobacter pneumonia s/p rx COVID 19 negative 2. respiratory failure s/p tracheostomy 3. neurofibromatosis 4. seizures 5. pulmonary hypertension 6. + blood cultures with coag neg staph likely contaminated P 1. continue off antibiotics 2. will follow up cultures Subjective ROS Limited/Unobtainable: Yes Allergies: Coded Allergies: PENICILLINS (Verified Allergy, Severe, 08/07/12) FISH CONTAINING PRODUCTS (Verified Allergy, Unknown, 06/02/18) Uncoded Allergies: seafood (Allergy, Unknown, 06/02/18) Objective Last 24 Hour Vital Signs Date Time Temp Pulse Resp B/P (MAP) Pulse Ox O2 Delivery O2 Flow Rate FiO2 03/03/20 09:05 87 15 30 03/03/20 08:38 90 99/69 03/03/20 08:00 30 03/03/20 08:00 Mechanical Ventilator 03/03/20 08:00 86 03/03/20 07:54 99.0 90 13 99/69 (79) 98 03/03/20 07:10 90 13 30 03/03/20 05:16 95 19 30 03/03/20 04:00 Mechanical Ventilator 03/03/20 04:00 97.4 77 16 98/59 (72) 100 03/03/20 04:00 30 03/03/20 04:00 89 03/03/20 03:12 99 18 30 03/03/20 01:24 85 16 30 03/03/20 00:00 97.1 72 15 97/61 (73) 100 03/03/20 00:00 Mechanical Ventilator 03/02/20 23:32 86 03/02/20 23:13 96 18 30 03/02/20 20:59 93 20 30 03/02/20 20:27 91 110/70 03/02/20 20:00 98.0 78 18 110/71 (84) 100 03/02/20 20:00 Mechanical Ventilator 03/02/20 20:00 30 03/02/20 19:29 89 03/02/20 19:29 91 13 30 03/02/20 16:54 70 15 30 03/02/20 16:00 82 03/02/20 16:00 30 03/02/20 16:00 Mechanical Ventilator 03/02/20 16:00 97.7 84 18 103/64 (77) 100 03/02/20 14:58 83 13 30 03/02/20 12:30 81 20 30 03/02/20 12:00 98.2 80 18 112/70 (84) 100 03/02/20 12:00 30 03/02/20 12:00 74 03/02/20 12:00 Mechanical Ventilator 03/02/20 11:00 74 16 30 Height (Feet): 5 Height (Inches): 5.00 Weight (Pounds): 147 HEENT: status post trach Respiratory/Chest: lungs clear Cardiovascular: normal rate, regular rhythm, no gallop/murmur Abdomen: soft, non tender, other - GT Extremities: no edema, other - right arm PICC Microbiology Date/Time Source Procedure Growth Status 02/29/20 22:00 Nasopharynx SARS-CoV-2 RdRp Gene Assay - Final Complete Current Medications Medications (Trade) Dose Ordered Sig/Brian Route PRN Reason Start Time Stop Time Status Last Admin Dose Admin Acetaminophen (Tylenol) 650 mg Q4H PRN NG Mild Pain (Pain Scale 1-3) 02/29/20 17:30 03/15/20 17:29 Acetaminophen (Tylenol) 650 mg Q4H PRN NG Temp >100.5 02/29/20 18:00 03/15/20 17:59 02/29/20 22:43 Al Hydroxide/Mg Hydroxide (Mylanta) 30 ml Q4H PRN ORAL Dyspepsia 02/29/20 18:00 03/15/20 17:59 Artificial Tears (Lacri-Lube) 1 applic EVERY 8 HOURS BOTH EYES 02/29/20 22:00 03/18/20 09:29 03/03/20 05:05 Carbamazepine (TEGretol) 200 mg TID NG 03/01/20 09:00 03/31/20 08:59 03/03/20 08:39 Chlorhexidine Gluconate (Gricelda-Hex 2%) 1 applic DAILY@1999 TOPIC 02/29/20 20:00 05/26/20 19:59 03/02/20 20:25 Gabapentin (Neurontin) 100 mg THREE TIMES A DAY ORAL 03/01/20 09:00 03/31/20 08:59 03/03/20 08:38 Heparin Sodium (Porcine) (Heparin 5000 units/ml) 5,000 units EVERY 12 HOURS SUBQ 02/29/20 21:00 04/12/20 20:59 03/03/20 08:38 Lansoprazole (Prevacid) 30 mg DAILY NG 03/01/20 09:00 03/15/20 08:59 03/03/20 08:39 Levetiracetam 100 ml @ 400 mls/hr Q12HR IVPB 02/29/20 21:00 05/19/20 08:59 03/03/20 08:39 Magnesium Hydroxide (Mom) 30 ml TIDPRN PRN NG Constipation 02/29/20 18:00 03/30/20 17:59 Metoclopramide HCl (Reglan) 5 mg Q6H IVP 02/29/20 20:00 03/26/20 19:59 03/03/20 08:39 Metoclopramide HCl (Reglan) 5 mg Q6H PRN IVP Nausea & Vomiting 02/29/20 18:00 03/20/20 17:59 Metoprolol Tartrate (Lopressor) 25 mg Q12HR ORAL 02/29/20 21:00 05/15/20 20:59 03/02/20 20:27 Patient Own Medication (Patient's Own Med) 1 ea DAILY ORAL 03/01/20 09:00 03/31/20 08:59 03/03/20 08:38 Patient Own Medication (Patient's Own Med) 1 ea Q12HR ORAL 02/29/20 21:00 03/30/20 20:59 03/03/20 08:38 Sildenafil Citrate (Revatio) 20 mg Q8HR ORAL 03/01/20 06:00 05/30/20 05:59 03/03/20 05:05 Maci Deleon MD Mar 03, 2020 10:38
--- NOTE | 2020-03-03 10:39 | Surgery Progress Note ---
Surgery Progress Note Subjective Procedure Performed tracheostomy Symptoms: improved, tolerating diet, voiding well, passing flatus, BM Objective Last 24 Hour Vital Signs Date Time Temp Pulse Resp B/P (MAP) Pulse Ox O2 Delivery O2 Flow Rate FiO2 03/03/20 09:05 87 15 30 03/03/20 08:38 90 99/69 03/03/20 08:00 30 03/03/20 08:00 Mechanical Ventilator 03/03/20 08:00 86 03/03/20 07:54 99.0 90 13 99/69 (79) 98 03/03/20 07:10 90 13 30 03/03/20 05:16 95 19 30 03/03/20 04:00 Mechanical Ventilator 03/03/20 04:00 97.4 77 16 98/59 (72) 100 03/03/20 04:00 30 03/03/20 04:00 89 03/03/20 03:12 99 18 30 03/03/20 01:24 85 16 30 03/03/20 00:00 97.1 72 15 97/61 (73) 100 03/03/20 00:00 Mechanical Ventilator 03/02/20 23:32 86 03/02/20 23:13 96 18 30 03/02/20 20:59 93 20 30 03/02/20 20:27 91 110/70 03/02/20 20:00 98.0 78 18 110/71 (84) 100 03/02/20 20:00 Mechanical Ventilator 03/02/20 20:00 30 03/02/20 19:29 89 03/02/20 19:29 91 13 30 03/02/20 16:54 70 15 30 03/02/20 16:00 82 03/02/20 16:00 30 03/02/20 16:00 Mechanical Ventilator 03/02/20 16:00 97.7 84 18 103/64 (77) 100 03/02/20 14:58 83 13 30 03/02/20 12:30 81 20 30 03/02/20 12:00 98.2 80 18 112/70 (84) 100 03/02/20 12:00 30 03/02/20 12:00 74 03/02/20 12:00 Mechanical Ventilator 03/02/20 11:00 74 16 30 I&O Intake and Output 9/4/20 9/5/20 19:00 07:00 Intake Total 975 ml 690 ml Output Total 200 ml 200 ml Balance 775 ml 490 ml Free Water 20 ml 200 ml IV Total 775 ml 100 ml Tube Feeding 180 ml 390 ml Output Urine Total 200 ml 200 ml # Bowel Movements 3 Dressing: dry Wound: clean Cardiovascular: RSR Respiratory: clear Abdomen: soft, non-tender, present bowel sounds Extremities: no edema, no tenderness, no cyanosis Plan Problems: (1) Respiratory failure Assessment & Plan: Respiratory insufficiency requiring prolonged ventilatory support currently remains on vent support unable to wean safely. Patient with altered level consciousness this time not responsive. Patient is a candidate for a tracheostomy. Pulmonology discussed with the family and they have agreed to proceed. Will optimize and plan for surgical intervention soon. Tracheostomy indicated and recommended. Thank you allowing me to participate in patient's care will follow with recommendations s/p trach improving labs noted trach okay weaning vent peg sub acute eval for placement improving more alert and responsive downgraded comfortable Bassam Hui Mar 03, 2020 10:39
[2020-03-03 12:00] VITALS: BP 96/72
--- NOTE | 2020-03-03 12:15 | General Progress Note ---
Assessment/Plan Problem List: (1) Seizure disorder ICD Codes: G40.909 - Epilepsy, unspecified, not intractable,without status epilepticus SNOMED: 601854869 (2) Pulmonary hypertension ICD Codes: I27.20 - Pulmonary hypertension, unspecified SNOMED: 89652458 (3) Respiratory failure ICD Codes: J96.90 - Respiratory failure, unspecified, unspecified whether with hypoxia or hypercapnia SNOMED: 877991716 Qualifiers: Qualified Codes: J96.01 - Acute respiratory failure with hypoxia (4) Severe sepsis ICD Codes: A41.9 - Sepsis, unspecified organism; R65.20 - Severe sepsis without septic shock SNOMED: 91459848 (5) NSTEMI (non-ST elevated myocardial infarction) ICD Codes: I21.4 - Non-ST elevation (NSTEMI) myocardial infarction SNOMED: 43127962 (6) Fever ICD Codes: R50.9 - Fever, unspecified SNOMED: 100671188 (7) Dyspnea ICD Codes: R06.00 - Dyspnea, unspecified SNOMED: 621886489 Assessment/Plan: cont vent support resp care/suctioning trach care sz rx monitor for szs/sz precautions gt feeds monitor residuals dvt/stress ulcer prophylaxis turn q2 resume eliquis dc planning to subacute Subjective ROS Limited/Unobtainable: Yes Constitutional: Reports: malaise, weakness HEENT: Reports: no symptoms Cardiovascular: Reports: no symptoms Respiratory: Reports: shortness of breath, sputum Gastrointestinal/Abdominal: Reports: difficulty swallowing Genitourinary: Reports: no symptoms Neurologic/Psychiatric: Reports: pre-existing deficit, seizure Endocrine: Reports: no symptoms Hematologic/Lymphatic: Reports: no symptoms Allergies: Coded Allergies: PENICILLINS (Verified Allergy, Severe, 08/07/12) FISH CONTAINING PRODUCTS (Verified Allergy, Unknown, 06/02/18) Uncoded Allergies: seafood (Allergy, Unknown, 06/02/18) All Systems: reviewed and negative except above Subjective No events. Remained stable on the vent no significant secretions or congestion. Tolerating J-tube feedings. Opens eyes does not follow commands. No reports of seizures. No fevers. Off of IV antibiotics. Objective Last 24 Hour Vital Signs Date Time Temp Pulse Resp B/P (MAP) Pulse Ox O2 Delivery O2 Flow Rate FiO2 03/03/20 12:00 Mechanical Ventilator 03/03/20 12:00 30 03/03/20 10:54 89 17 30 03/03/20 09:05 87 15 30 03/03/20 08:38 90 99/69 03/03/20 08:00 30 03/03/20 08:00 Mechanical Ventilator 03/03/20 08:00 86 03/03/20 07:54 99.0 90 13 99/69 (79) 98 03/03/20 07:10 90 13 30 03/03/20 05:16 95 19 30 03/03/20 04:00 Mechanical Ventilator 03/03/20 04:00 97.4 77 16 98/59 (72) 100 03/03/20 04:00 30 03/03/20 04:00 89 03/03/20 03:12 99 18 30 03/03/20 01:24 85 16 30 03/03/20 00:00 97.1 72 15 97/61 (73) 100 03/03/20 00:00 Mechanical Ventilator 03/02/20 23:32 86 03/02/20 23:13 96 18 30 03/02/20 20:59 93 20 30 03/02/20 20:27 91 110/70 03/02/20 20:00 98.0 78 18 110/71 (84) 100 03/02/20 20:00 Mechanical Ventilator 03/02/20 20:00 30 03/02/20 19:29 89 03/02/20 19:29 91 13 30 03/02/20 16:54 70 15 30 03/02/20 16:00 82 03/02/20 16:00 30 03/02/20 16:00 Mechanical Ventilator 03/02/20 16:00 97.7 84 18 103/64 (77) 100 03/02/20 14:58 83 13 30 03/02/20 12:30 81 20 30 Intake and Output 03/02/20 03/03/20 19:00 07:00 Intake Total 975 ml 690 ml Output Total 200 ml 200 ml Balance 775 ml 490 ml Free Water 20 ml 200 ml IV Total 775 ml 100 ml Tube Feeding 180 ml 390 ml Output Urine Total 200 ml 200 ml # Bowel Movements 3 Height (Feet): 5 Height (Inches): 5.00 Weight (Pounds): 147 Objective General Appearance: WD/WN, confused EENT: PERRL/EOMI, normal ENT inspection Neck: non-tender, normal alignment. trach c/d/i Cardiovascular: normal peripheral pulses, normal rate Respiratory/Chest: chest wall non-tender, lungs clear, normal breath sounds Abdomen: normal bowel sounds, non tender Edema: no edema noted Arm (L), no edema noted Arm (R) Neurologic: disoriented, unresponsive Skin: normal pigmentation Lymphatic: normal anterior cervical (L), normal anterior cervical (R) Liborio Dugan MD Mar 03, 2020 12:15
[2020-03-03 16:00] VITALS: BP 117/73
[2020-03-03] MEDS: Eliquis 5mg tablet ORAL SCH (18:02)
[2020-03-03 20:00] VITALS: BP 95/61
[2020-03-03] MEDS: Dyna-Hex 2% Top Sol 2oz TOPIC SCH (20:39)
[2020-03-04] VITALS: BP 97/68
[2020-03-04] MEDS: Metoclopramide 10mg/2ml Inj IVP SCH ×4 (01:14→20:32)
[2020-03-04 03:45] VITALS: BP 102/65
[2020-03-04] MEDS: Revatio 20mg tab ORAL SCH ×3 (05:17→22:00)
[2020-03-04] MEDS: Lacri-Lube Opth Oint 3.5gm BOTH EYES SCH ×3 (05:17→22:11)
[2020-03-04 06:56] LABS: BASOPHILS % (AUTO) 1.5 % (0.0-2.0); EOSINOPHILS % (AUTO) 0.6 % (0.0-3.0); HEMOGLOBIN 10.5 G/DL (12.0-16.0); LYMPHOCYTES % (AUTO) 16.7 % (20.0-45.0); MEAN CORPUSCULAR VOLUME 97 FL (80-99); MONOCYTES % (AUTO) 11.9 % (1.0-10.0); NEUTROPHILS % (AUTO) 69.3 % (45.0-75.0); PLATELET COUNT 190 K/UL (150-450); RED BLOOD COUNT 3.39 M/UL (4.20-5.40); RED CELL DISTRIBUTION WIDTH 16.2 % (11.6-14.8); WHITE BLOOD COUNT 6.9 K/UL (4.8-10.8)
[2020-03-04 07:36] LABS: ALANINE AMINOTRANSFERASE 53 U/L (12-78); ALBUMIN 1.6 G/DL (3.4-5.0); ALBUMIN/GLOBULIN RATIO 0.3 (1.0-2.7); ALKALINE PHOSPHATASE 166 U/L (46-116); ANION GAP 8 mmol/L (5-15); ASPARTATE AMINO TRANSFERASE 33 U/L (15-37); BILIRUBIN,TOTAL 0.5 MG/DL (0.2-1.0); BLOOD UREA NITROGEN 25 mg/dL (7-18); CALCIUM 8.6 MG/DL (8.5-10.1); CARBON DIOXIDE 25 MMOL/L (21-32); CHLORIDE 108 MMOL/L (98-107); CREATININE 0.8 MG/DL (0.55-1.30); POTASSIUM 4.8 MMOL/L (3.5-5.1); SODIUM 141 MMOL/L (136-145)
--- NOTE | 2020-03-04 07:37 | General Progress Note ---
Assessment/Plan Assessment/Plan: Assessment - Resp failure -s/p PEG - Shock - s/p DE - anasarca - Anemia - abnormal LFT Recommendations - TF - OK to restart Eliquis from GI standpoint - Vent - Supportive care - f/u hepatitis serologies Subjective ROS Limited/Unobtainable: No Allergies: Coded Allergies: PENICILLINS (Verified Allergy, Severe, 08/07/12) FISH CONTAINING PRODUCTS (Verified Allergy, Unknown, 06/02/18) Uncoded Allergies: seafood (Allergy, Unknown, 06/02/18) Objective Last 24 Hour Vital Signs Date Time Temp Pulse Resp B/P (MAP) Pulse Ox O2 Delivery O2 Flow Rate FiO2 03/04/20 04:43 86 13 30 03/04/20 04:00 30 03/04/20 04:00 Mechanical Ventilator 03/04/20 03:45 97.8 83 17 102/65 (77) 100 03/04/20 03:42 84 03/04/20 02:35 91 19 30 03/04/20 01:30 92 18 30 03/04/20 00:00 81 03/04/20 00:00 Mechanical Ventilator 03/04/20 00:00 97.7 79 18 97/68 (78) 100 03/04/20 00:00 30 03/03/20 23:30 95 17 30 03/03/20 21:09 99.1 03/03/20 20:43 97 19 30 03/03/20 20:24 90 95/61 03/03/20 20:00 99.6 90 18 95/61 (72) 100 03/03/20 20:00 30 03/03/20 20:00 Mechanical Ventilator 03/03/20 19:30 84 14 30 03/03/20 19:25 91 03/03/20 17:07 96 17 30 03/03/20 16:00 103 03/03/20 16:00 97.6 96 19 117/73 (88) 100 03/03/20 16:00 30 03/03/20 16:00 Mechanical Ventilator 03/03/20 14:54 102 19 30 03/03/20 13:01 92 16 30 03/03/20 12:00 Mechanical Ventilator 03/03/20 12:00 97.7 97 17 96/72 (80) 100 03/03/20 12:00 87 03/03/20 12:00 30 03/03/20 10:54 89 17 30 03/03/20 09:05 87 15 30 03/03/20 08:38 90 99/69 03/03/20 08:00 30 03/03/20 08:00 Mechanical Ventilator 03/03/20 08:00 86 03/03/20 07:54 99.0 90 13 99/69 (79) 98 Intake and Output 03/03/20 03/04/20 19:00 07:00 Intake Total 790 ml 740 ml Output Total 200 ml 475 ml Balance 590 ml 265 ml Free Water 300 ml 100 ml IV Total 400 ml Tube Feeding 490 ml 240 ml Output Urine Total 200 ml 475 ml # Bowel Movements 1 Laboratory Tests 03/04/20 05:35: White Blood Count 6.9, Red Blood Count 3.39L, Hemoglobin 10.5L, Hematocrit 33.0L , Mean Corpuscular Volume 97, Mean Corpuscular Hemoglobin 30.9, Mean Corpuscular Hemoglobin Concent 31.7L, Red Cell Distribution Width 16.2H, Platelet Count 190, Mean Platelet Volume 8.0, Neutrophils (%) (Auto) 69.3, Lymphocytes (%) (Auto) 16.7L, Monocytes (%) (Auto) 11.9H, Eosinophils (%) (Auto ) 0.6, Basophils (%) (Auto) 1.5, Sodium Level [Pending], Potassium Level [ Pending], Chloride Level [Pending], Carbon Dioxide Level [Pending], Blood Urea Nitrogen [Pending], Creatinine [Pending], Estimat Glomerular Filtration Rate [ Pending], Glucose Level [Pending], Calcium Level [Pending], Total Bilirubin [ Pending], Aspartate Amino Transf (AST/SGOT) [Pending], Alanine Aminotransferase (ALT/SGPT) [Pending], Alkaline Phosphatase [Pending], Total Protein [Pending], Albumin [Pending], Globulin [Pending] Height (Feet): 5 Height (Inches): 5.00 Weight (Pounds): 147 General Appearance: no apparent distress EENT: normal ENT inspection Neck: supple Cardiovascular: normal rate Respiratory/Chest: decreased breath sounds Abdomen: normal bowel sounds, non tender, soft Extremities: non-tender Ricki Alvarado MD Mar 04, 2020 07:37
[2020-03-04 08:00] VITALS: BP 129/74
--- NOTE | 2020-03-04 08:26 | General Progress Note ---
Assessment/Plan Problem List: (1) Seizure disorder ICD Codes: G40.909 - Epilepsy, unspecified, not intractable,without status epilepticus SNOMED: 476146805 (2) Pulmonary hypertension ICD Codes: I27.20 - Pulmonary hypertension, unspecified SNOMED: 67764594 (3) Respiratory failure ICD Codes: J96.90 - Respiratory failure, unspecified, unspecified whether with hypoxia or hypercapnia SNOMED: 058756012 Qualifiers: Qualified Codes: J96.01 - Acute respiratory failure with hypoxia (4) Severe sepsis ICD Codes: A41.9 - Sepsis, unspecified organism; R65.20 - Severe sepsis without septic shock SNOMED: 07757628 (5) NSTEMI (non-ST elevated myocardial infarction) ICD Codes: I21.4 - Non-ST elevation (NSTEMI) myocardial infarction SNOMED: 67546954 (6) Fever ICD Codes: R50.9 - Fever, unspecified SNOMED: 620925604 (7) Dyspnea ICD Codes: R06.00 - Dyspnea, unspecified SNOMED: 384795389 Assessment/Plan: cont vent support resp care/suctioning trach care sz rx monitor for szs/sz precautions gt feeds monitor residuals dvt/stress ulcer prophylaxis turn q2 resume eliquis dc planning to subacute Subjective ROS Limited/Unobtainable: Yes Constitutional: Reports: malaise, weakness HEENT: Reports: no symptoms Cardiovascular: Reports: no symptoms Respiratory: Reports: shortness of breath, sputum Gastrointestinal/Abdominal: Reports: difficulty swallowing Genitourinary: Reports: no symptoms Neurologic/Psychiatric: Reports: pre-existing deficit, seizure Endocrine: Reports: no symptoms Hematologic/Lymphatic: Reports: anemia Allergies: Coded Allergies: PENICILLINS (Verified Allergy, Severe, 08/07/12) FISH CONTAINING PRODUCTS (Verified Allergy, Unknown, 06/02/18) Uncoded Allergies: seafood (Allergy, Unknown, 06/02/18) All Systems: reviewed and negative except above Subjective No events. Remained stable on the vent no significant secretions or congestion. Tolerating J-tube feedings. lethargic this am. No reports of seizures. No fevers. Off of IV antibiotics. Objective Last 24 Hour Vital Signs Date Time Temp Pulse Resp B/P (MAP) Pulse Ox O2 Delivery O2 Flow Rate FiO2 03/04/20 06:38 98 13 30 03/04/20 04:43 86 13 30 03/04/20 04:00 30 03/04/20 04:00 Mechanical Ventilator 03/04/20 03:45 97.8 83 17 102/65 (77) 100 03/04/20 03:42 84 03/04/20 02:35 91 19 30 03/04/20 01:30 92 18 30 03/04/20 00:00 81 03/04/20 00:00 Mechanical Ventilator 03/04/20 00:00 97.7 79 18 97/68 (78) 100 03/04/20 00:00 30 03/03/20 23:30 95 17 30 03/03/20 21:09 99.1 03/03/20 20:43 97 19 30 03/03/20 20:24 90 95/61 03/03/20 20:00 99.6 90 18 95/61 (72) 100 03/03/20 20:00 30 03/03/20 20:00 Mechanical Ventilator 03/03/20 19:30 84 14 30 03/03/20 19:25 91 03/03/20 17:07 96 17 30 03/03/20 16:00 103 03/03/20 16:00 97.6 96 19 117/73 (88) 100 03/03/20 16:00 30 03/03/20 16:00 Mechanical Ventilator 03/03/20 14:54 102 19 30 03/03/20 13:01 92 16 30 03/03/20 12:00 Mechanical Ventilator 03/03/20 12:00 97.7 97 17 96/72 (80) 100 03/03/20 12:00 87 03/03/20 12:00 30 03/03/20 10:54 89 17 30 03/03/20 09:05 87 15 30 03/03/20 08:38 90 99/69 Intake and Output 03/03/20 03/04/20 19:00 07:00 Intake Total 790 ml 740 ml Output Total 200 ml 475 ml Balance 590 ml 265 ml Free Water 300 ml 100 ml IV Total 400 ml Tube Feeding 490 ml 240 ml Output Urine Total 200 ml 475 ml # Bowel Movements 1 Laboratory Tests 03/04/20 05:35: White Blood Count 6.9, Red Blood Count 3.39L, Hemoglobin 10.5L, Hematocrit 33.0L , Mean Corpuscular Volume 97, Mean Corpuscular Hemoglobin 30.9, Mean Corpuscular Hemoglobin Concent 31.7L, Red Cell Distribution Width 16.2H, Platelet Count 190, Mean Platelet Volume 8.0, Neutrophils (%) (Auto) 69.3, Lymphocytes (%) (Auto) 16.7L, Monocytes (%) (Auto) 11.9H, Eosinophils (%) (Auto ) 0.6, Basophils (%) (Auto) 1.5, Sodium Level 141, Potassium Level 4.8, Chloride Level 108H, Carbon Dioxide Level 25, Anion Gap 8, Blood Urea Nitrogen 25H, Creatinine 0.8, Estimat Glomerular Filtration Rate > 60, Glucose Level 113H , Calcium Level 8.6, Total Bilirubin 0.5, Aspartate Amino Transf (AST/SGOT) 33, Alanine Aminotransferase (ALT/SGPT) 53, Alkaline Phosphatase 166H, Total Protein 6.2L, Albumin 1.6L, Globulin 4.6, Albumin/Globulin Ratio 0.3L Height (Feet): 5 Height (Inches): 5.00 Weight (Pounds): 147 Objective General Appearance: WD/WN, confused EENT: PERRL/EOMI, normal ENT inspection Neck: non-tender, normal alignment. trach c/d/i Cardiovascular: normal peripheral pulses, normal rate Respiratory/Chest: chest wall non-tender, lungs clear, normal breath sounds Abdomen: normal bowel sounds, non tender Edema: no edema noted Arm (L), no edema noted Arm (R) Neurologic: disoriented, unresponsive Skin: normal pigmentation Lymphatic: normal anterior cervical (L), normal anterior cervical (R) Liborio Dugan MD Mar 04, 2020 08:26
[2020-03-04] MEDS: levETIRAcetam 1,000mg/NS100ml 100 ML IVPB SCH ×2 (09:18→20:31)
[2020-03-04] MEDS: Eliquis 5mg tablet ORAL SCH ×2 (09:25→17:32)
[2020-03-04] MEDS: carBAMazepine 200mg tab NG SCH ×3 (09:26→17:32)
[2020-03-04] MEDS: SELEXIPAG ORAL SCH ×2 (09:27→20:34)
[2020-03-04] MEDS: OPSUMIT 10 MG ORAL SCH (09:27)
--- NOTE | 2020-03-04 11:58 | Infectious Diseases Prog Note ---
Assessment/Plan Assessment/Plan A 1. Acinetobacter pneumonia treated COVID19 X2: negative 2. Hypoxic respiratory failure 3. neurofibromatosis 4. seizures 5. pulmonary hypertension 6. Sepsis 7. Non ST elevation NM 8. Coma 9. Deaf & blind P 1. Observe off antibiotic Subjective ROS Limited/Unobtainable: Yes Allergies: Coded Allergies: PENICILLINS (Verified Allergy, Severe, 08/07/12) FISH CONTAINING PRODUCTS (Verified Allergy, Unknown, 06/02/18) Uncoded Allergies: seafood (Allergy, Unknown, 06/02/18) Objective Last 24 Hour Vital Signs Date Time Temp Pulse Resp B/P (MAP) Pulse Ox O2 Delivery O2 Flow Rate FiO2 03/04/20 11:28 85 17 30 03/04/20 09:20 93 129/74 03/04/20 08:59 93 14 30 03/04/20 08:00 Mechanical Ventilator 03/04/20 08:00 97.5 84 17 129/74 (92) 99 03/04/20 08:00 30 03/04/20 08:00 84 03/04/20 06:38 98 13 30 03/04/20 04:43 86 13 30 03/04/20 04:00 30 03/04/20 04:00 Mechanical Ventilator 03/04/20 03:45 97.8 83 17 102/65 (77) 100 03/04/20 03:42 84 03/04/20 02:35 91 19 30 03/04/20 01:30 92 18 30 03/04/20 00:00 81 03/04/20 00:00 Mechanical Ventilator 03/04/20 00:00 97.7 79 18 97/68 (78) 100 03/04/20 00:00 30 03/03/20 23:30 95 17 30 03/03/20 21:09 99.1 03/03/20 20:43 97 19 30 03/03/20 20:24 90 95/61 03/03/20 20:00 99.6 90 18 95/61 (72) 100 03/03/20 20:00 30 03/03/20 20:00 Mechanical Ventilator 03/03/20 19:30 84 14 30 03/03/20 19:25 91 03/03/20 17:07 96 17 30 03/03/20 16:00 103 03/03/20 16:00 97.6 96 19 117/73 (88) 100 03/03/20 16:00 30 03/03/20 16:00 Mechanical Ventilator 03/03/20 14:54 102 19 30 03/03/20 13:01 92 16 30 03/03/20 12:00 Mechanical Ventilator 03/03/20 12:00 97.7 97 17 96/72 (80) 100 03/03/20 12:00 87 03/03/20 12:00 30 Height (Feet): 5 Height (Inches): 5.00 Weight (Pounds): 147 HEENT: status post trach Respiratory/Chest: rhonchi - bilaterally, other - on ventilator Cardiovascular: normal rate Abdomen: soft, non tender, other - GT feeding Extremities: other - generalized edema Neurologic/Psychiatric: unresponsiveness, aphasia Laboratory Tests Test 03/04/20 05:35 White Blood Count 6.9 K/UL (4.8-10.8) Red Blood Count 3.39 M/UL (4.20-5.40) L Hemoglobin 10.5 G/DL (12.0-16.0) L Hematocrit 33.0 % (37.0-47.0) L Mean Corpuscular Volume 97 FL (80-99) Mean Corpuscular Hemoglobin 30.9 PG (27.0-31.0) Mean Corpuscular Hemoglobin Concent 31.7 G/DL (32.0-36.0) L Red Cell Distribution Width 16.2 % (11.6-14.8) H Platelet Count 190 K/UL (150-450) Mean Platelet Volume 8.0 FL (6.5-10.1) Neutrophils (%) (Auto) 69.3 % (45.0-75.0) Lymphocytes (%) (Auto) 16.7 % (20.0-45.0) L Monocytes (%) (Auto) 11.9 % (1.0-10.0) H Eosinophils (%) (Auto) 0.6 % (0.0-3.0) Basophils (%) (Auto) 1.5 % (0.0-2.0) Sodium Level 141 MMOL/L (136-145) Potassium Level 4.8 MMOL/L (3.5-5.1) Chloride Level 108 MMOL/L (98-107) H Carbon Dioxide Level 25 MMOL/L (21-32) Anion Gap 8 mmol/L (5-15) Blood Urea Nitrogen 25 mg/dL (7-18) H Creatinine 0.8 MG/DL (0.55-1.30) Estimat Glomerular Filtration Rate > 60 mL/min (>60) Glucose Level 113 MG/DL (74-106) H Calcium Level 8.6 MG/DL (8.5-10.1) Total Bilirubin 0.5 MG/DL (0.2-1.0) Aspartate Amino Transf (AST/SGOT) 33 U/L (15-37) Alanine Aminotransferase (ALT/SGPT) 53 U/L (12-78) Alkaline Phosphatase 166 U/L (46-116) H Total Protein 6.2 G/DL (6.4-8.2) L Albumin 1.6 G/DL (3.4-5.0) L Globulin 4.6 g/dL Albumin/Globulin Ratio 0.3 (1.0-2.7) L Current Medications Medications (Trade) Dose Ordered Sig/Brian Route PRN Reason Start Time Stop Time Status Last Admin Dose Admin Acetaminophen (Tylenol) 650 mg Q4H PRN NG Mild Pain (Pain Scale 1-3) 02/29/20 17:30 03/15/20 17:29 03/03/20 20:39 Acetaminophen (Tylenol) 650 mg Q4H PRN NG Temp >100.5 02/29/20 18:00 03/15/20 17:59 02/29/20 22:43 Al Hydroxide/Mg Hydroxide (Mylanta) 30 ml Q4H PRN ORAL Dyspepsia 02/29/20 18:00 03/15/20 17:59 Apixaban (Eliquis) 5 mg BID ORAL 03/03/20 18:00 06/01/20 17:59 03/04/20 09:25 Artificial Tears (Lacri-Lube) 1 applic EVERY 8 HOURS BOTH EYES 02/29/20 22:00 03/18/20 09:29 03/04/20 05:17 Carbamazepine (TEGretol) 200 mg TID NG 03/01/20 09:00 03/31/20 08:59 03/04/20 09:26 Chlorhexidine Gluconate (Gricelda-Hex 2%) 1 applic DAILY@1999 TOPIC 02/29/20 20:00 05/26/20 19:59 03/03/20 20:39 Gabapentin (Neurontin) 100 mg THREE TIMES A DAY ORAL 03/01/20 09:00 03/31/20 08:59 03/04/20 09:19 Lansoprazole (Prevacid) 30 mg DAILY NG 03/01/20 09:00 03/15/20 08:59 03/04/20 09:19 Levetiracetam 100 ml @ 400 mls/hr Q12HR IVPB 02/29/20 21:00 05/19/20 08:59 03/04/20 09:18 Magnesium Hydroxide (Mom) 30 ml TIDPRN PRN NG Constipation 02/29/20 18:00 03/30/20 17:59 Metoclopramide HCl (Reglan) 5 mg Q6H IVP 02/29/20 20:00 03/26/20 19:59 03/04/20 08:00 Metoclopramide HCl (Reglan) 5 mg Q6H PRN IVP Nausea & Vomiting 02/29/20 18:00 03/20/20 17:59 Metoprolol Tartrate (Lopressor) 25 mg Q12HR ORAL 02/29/20 21:00 05/15/20 20:59 03/04/20 09:20 Patient Own Medication (Patient's Own Med) 1 ea DAILY ORAL 03/01/20 09:00 03/31/20 08:59 03/04/20 09:27 Patient Own Medication (Patient's Own Med) 1 ea Q12HR ORAL 02/29/20 21:00 03/30/20 20:59 03/04/20 09:27 Sildenafil Citrate (Revatio) 20 mg Q8HR ORAL 03/01/20 06:00 05/30/20 05:59 03/03/20 13:28 Guillaume Hernandez MD Mar 04, 2020 11:58
[2020-03-04 12:00] VITALS: BP 91/65
--- NOTE | 2020-03-04 12:07 | Pulmonology Progress Note ---
Subjective ROS Limited/Unobtainable: No Constitutional: Reports: fever, other - low grade fever last night Gastrointestinal/Abdominal: Reports: other - had EGD & PEG placement today Allergies: Coded Allergies: PENICILLINS (Verified Allergy, Severe, 08/07/12) FISH CONTAINING PRODUCTS (Verified Allergy, Unknown, 06/02/18) Uncoded Allergies: seafood (Allergy, Unknown, 06/02/18) All Systems: reviewed and negative except above Objective Last 24 Hour Vital Signs Date Time Temp Pulse Resp B/P (MAP) Pulse Ox O2 Delivery O2 Flow Rate FiO2 03/04/20 12:00 Mechanical Ventilator 03/04/20 12:00 96.8 88 18 91/65 (74) 98 03/04/20 11:28 85 17 30 03/04/20 09:20 93 129/74 03/04/20 08:59 93 14 30 03/04/20 08:00 Mechanical Ventilator 03/04/20 08:00 97.5 84 17 129/74 (92) 99 03/04/20 08:00 30 03/04/20 08:00 84 03/04/20 06:38 98 13 30 03/04/20 04:43 86 13 30 03/04/20 04:00 30 03/04/20 04:00 Mechanical Ventilator 03/04/20 03:45 97.8 83 17 102/65 (77) 100 03/04/20 03:42 84 03/04/20 02:35 91 19 30 03/04/20 01:30 92 18 30 03/04/20 00:00 81 03/04/20 00:00 Mechanical Ventilator 03/04/20 00:00 97.7 79 18 97/68 (78) 100 03/04/20 00:00 30 03/03/20 23:30 95 17 30 03/03/20 21:09 99.1 03/03/20 20:43 97 19 30 03/03/20 20:24 90 95/61 03/03/20 20:00 99.6 90 18 95/61 (72) 100 03/03/20 20:00 30 03/03/20 20:00 Mechanical Ventilator 03/03/20 19:30 84 14 30 03/03/20 19:25 91 03/03/20 17:07 96 17 30 03/03/20 16:00 103 03/03/20 16:00 97.6 96 19 117/73 (88) 100 03/03/20 16:00 30 03/03/20 16:00 Mechanical Ventilator 03/03/20 14:54 102 19 30 03/03/20 13:01 92 16 30 Intake and Output 03/03/20 03/04/20 19:00 07:00 Intake Total 790 ml 740 ml Output Total 200 ml 475 ml Balance 590 ml 265 ml Free Water 300 ml 100 ml IV Total 400 ml Tube Feeding 490 ml 240 ml Output Urine Total 200 ml 475 ml # Bowel Movements 1 Laboratory Tests 03/04/20 05:35: White Blood Count 6.9, Red Blood Count 3.39L, Hemoglobin 10.5L, Hematocrit 33.0L , Mean Corpuscular Volume 97, Mean Corpuscular Hemoglobin 30.9, Mean Corpuscular Hemoglobin Concent 31.7L, Red Cell Distribution Width 16.2H, Platelet Count 190, Mean Platelet Volume 8.0, Neutrophils (%) (Auto) 69.3, Lymphocytes (%) (Auto) 16.7L, Monocytes (%) (Auto) 11.9H, Eosinophils (%) (Auto ) 0.6, Basophils (%) (Auto) 1.5, Sodium Level 141, Potassium Level 4.8, Chloride Level 108H, Carbon Dioxide Level 25, Anion Gap 8, Blood Urea Nitrogen 25H, Creatinine 0.8, Estimat Glomerular Filtration Rate > 60, Glucose Level 113H , Calcium Level 8.6, Total Bilirubin 0.5, Aspartate Amino Transf (AST/SGOT) 33, Alanine Aminotransferase (ALT/SGPT) 53, Alkaline Phosphatase 166H, Total Protein 6.2L, Albumin 1.6L, Globulin 4.6, Albumin/Globulin Ratio 0.3L Current Medications Medications (Trade) Dose Ordered Sig/Brian Route PRN Reason Start Time Stop Time Status Last Admin Dose Admin Acetaminophen (Tylenol) 650 mg Q4H PRN NG Mild Pain (Pain Scale 1-3) 02/29/20 17:30 03/15/20 17:29 03/03/20 20:39 Acetaminophen (Tylenol) 650 mg Q4H PRN NG Temp >100.5 02/29/20 18:00 03/15/20 17:59 02/29/20 22:43 Al Hydroxide/Mg Hydroxide (Mylanta) 30 ml Q4H PRN ORAL Dyspepsia 02/29/20 18:00 03/15/20 17:59 Apixaban (Eliquis) 5 mg BID ORAL 03/03/20 18:00 06/01/20 17:59 03/04/20 09:25 Artificial Tears (Lacri-Lube) 1 applic EVERY 8 HOURS BOTH EYES 02/29/20 22:00 03/18/20 09:29 03/04/20 05:17 Carbamazepine (TEGretol) 200 mg TID NG 03/01/20 09:00 03/31/20 08:59 03/04/20 09:26 Chlorhexidine Gluconate (Gricelda-Hex 2%) 1 applic DAILY@2000 TOPIC 02/29/20 20:00 05/26/20 19:59 03/03/20 20:39 Gabapentin (Neurontin) 100 mg THREE TIMES A DAY ORAL 03/01/20 09:00 03/31/20 08:59 03/04/20 09:19 Lansoprazole (Prevacid) 30 mg DAILY NG 03/01/20 09:00 03/15/20 08:59 03/04/20 09:19 Levetiracetam 100 ml @ 400 mls/hr Q12HR IVPB 02/29/20 21:00 05/19/20 08:59 03/04/20 09:18 Magnesium Hydroxide (Mom) 30 ml TIDPRN PRN NG Constipation 02/29/20 18:00 03/30/20 17:59 Metoclopramide HCl (Reglan) 5 mg Q6H IVP 02/29/20 20:00 03/26/20 19:59 03/04/20 08:00 Metoclopramide HCl (Reglan) 5 mg Q6H PRN IVP Nausea & Vomiting 02/29/20 18:00 03/20/20 17:59 Metoprolol Tartrate (Lopressor) 25 mg Q12HR ORAL 02/29/20 21:00 05/15/20 20:59 03/04/20 09:20 Patient Own Medication (Patient's Own Med) 1 ea DAILY ORAL 03/01/20 09:00 03/31/20 08:59 03/04/20 09:27 Patient Own Medication (Patient's Own Med) 1 ea Q12HR ORAL 02/29/20 21:00 03/30/20 20:59 03/04/20 09:27 Sildenafil Citrate (Revatio) 20 mg Q8HR ORAL 03/01/20 06:00 05/30/20 05:59 03/03/20 13:28 Assessment/Plan Assessment/Plan Pulmonary Progress Note Assessment/Plan Assessment/Plan respiratory failure s/p trach pneumonia improving pulmonary hypertension elevated troponin possible NSTEMI paraplegia hypoxemia seizure history brain masses, chronic moderate PCM s/pGT PLAN trach care noted GT care IV antibiotics noted imaging noted respiratory care and nursing care noted Ventilatory support on- unable to wean mental status remains poor and not improved monitor acid base and adjust supportive care suction as needed monitor heart rate seizure meds- as is oxygen therapy prognosis same nutrition off load and monitor skin update family as to care and placement will need subacute care when stable medications/laboratory data/nursing notes reviewed in detail note reviewed and edited care discussed with RN and RT Vital Signs noted Labs noted Objective: WDWN NAD on vent, trach in place reduced breath sounds bilaterally without rhonchi or wheeze [id number] without MRG NABS nontender GT no CCE nonfocal poor LOC reduced ROM skin noted reviewed and edited feeding tube in place Marcus Campbell MD Mar 04, 2020 12:07
[2020-03-04 16:00] VITALS: BP 92/62
[2020-03-04 20:00] VITALS: BP 99/56
[2020-03-04] MEDS: Dyna-Hex 2% Top Sol 2oz TOPIC SCH (20:32)
[2020-03-05] VITALS (8 sets, daily range): BP systolic 89–107; BP diastolic 63–73
[2020-03-05] MEDS: Metoclopramide 10mg/2ml Inj IVP SCH ×4 (02:12→20:38)
[2020-03-05] MEDS: Lacri-Lube Opth Oint 3.5gm BOTH EYES SCH ×3 (05:15→22:03)
[2020-03-05] MEDS: Revatio 20mg tab ORAL SCH ×3 (05:16→22:03)
[2020-03-05 05:47] LABS: BASOPHILS % (AUTO) 0.9 % (0.0-2.0); EOSINOPHILS % (AUTO) 0.3 % (0.0-3.0); HEMATOCRIT 33.3 % (37.0-47.0); HEMOGLOBIN 10.4 G/DL (12.0-16.0); LYMPHOCYTES % (AUTO) 11.9 % (20.0-45.0); MEAN CORPUSCULAR VOLUME 98 FL (80-99); NEUTROPHILS % (AUTO) 76.8 % (45.0-75.0); PLATELET COUNT 189 K/UL (150-450); RED BLOOD COUNT 3.41 M/UL (4.20-5.40); RED CELL DISTRIBUTION WIDTH 16.7 % (11.6-14.8); WHITE BLOOD COUNT 7.2 K/UL (4.8-10.8)
[2020-03-05 06:23] LABS: ALANINE AMINOTRANSFERASE 42 U/L (12-78); ALBUMIN 1.7 G/DL (3.4-5.0); ALBUMIN/GLOBULIN RATIO 0.4 (1.0-2.7); ALKALINE PHOSPHATASE 155 U/L (46-116); ANION GAP 7 mmol/L (5-15); ASPARTATE AMINO TRANSFERASE 25 U/L (15-37); BILIRUBIN,TOTAL 0.4 MG/DL (0.2-1.0); BLOOD UREA NITROGEN 26 mg/dL (7-18); CALCIUM 8.2 MG/DL (8.5-10.1); CARBON DIOXIDE 23 MMOL/L (21-32); CHLORIDE 108 MMOL/L (98-107); CREATININE 0.8 MG/DL (0.55-1.30); POTASSIUM 4.8 MMOL/L (3.5-5.1); SODIUM 138 MMOL/L (136-145)
[2020-03-05] MEDS: OPSUMIT 10 MG ORAL SCH (08:33)
[2020-03-05] MEDS: levETIRAcetam 1,000mg/NS100ml 100 ML IVPB SCH ×2 (08:33→20:37)
[2020-03-05] MEDS: SELEXIPAG ORAL SCH ×2 (08:33→20:51)
[2020-03-05] MEDS: carBAMazepine 200mg tab NG SCH ×3 (08:35→18:00)
[2020-03-05] MEDS: Eliquis 5mg tablet ORAL SCH ×2 (08:36→18:01)
--- NOTE | 2020-03-05 08:54 | General Progress Note ---
Assessment/Plan Problem List: (1) Seizure disorder ICD Codes: G40.909 - Epilepsy, unspecified, not intractable,without status epilepticus SNOMED: 548434427 (2) Pulmonary hypertension ICD Codes: I27.20 - Pulmonary hypertension, unspecified SNOMED: 94200560 (3) Respiratory failure ICD Codes: J96.90 - Respiratory failure, unspecified, unspecified whether with hypoxia or hypercapnia SNOMED: 767347852 Qualifiers: Qualified Codes: J96.01 - Acute respiratory failure with hypoxia (4) Severe sepsis ICD Codes: A41.9 - Sepsis, unspecified organism; R65.20 - Severe sepsis without septic shock SNOMED: 27244300 (5) NSTEMI (non-ST elevated myocardial infarction) ICD Codes: I21.4 - Non-ST elevation (NSTEMI) myocardial infarction SNOMED: 77265157 (6) Fever ICD Codes: R50.9 - Fever, unspecified SNOMED: 177884525 (7) Dyspnea ICD Codes: R06.00 - Dyspnea, unspecified SNOMED: 165489330 Assessment/Plan: cont vent support resp care/suctioning trach care sz rx monitor for szs/sz precautions gt feeds- monitor residuals reglan dvt/stress ulcer prophylaxis turn q2 resume eliquis dc planning to subacute when tolerating feeds Subjective ROS Limited/Unobtainable: No Constitutional: Reports: malaise, weakness HEENT: Reports: no symptoms Cardiovascular: Reports: no symptoms Respiratory: Reports: shortness of breath Gastrointestinal/Abdominal: Reports: vomiting Genitourinary: Reports: no symptoms Neurologic/Psychiatric: Reports: pre-existing deficit, seizure Endocrine: Reports: no symptoms Hematologic/Lymphatic: Reports: no symptoms Allergies: Coded Allergies: PENICILLINS (Verified Allergy, Severe, 08/07/12) FISH CONTAINING PRODUCTS (Verified Allergy, Unknown, 06/02/18) Uncoded Allergies: seafood (Allergy, Unknown, 06/02/18) All Systems: reviewed and negative except above Subjective not tolerating feeds. increased residuals and vomiting. no szs. stable on the vent. awake. tracks. d/w rn Objective Last 24 Hour Vital Signs Date Time Temp Pulse Resp B/P (MAP) Pulse Ox O2 Delivery O2 Flow Rate FiO2 03/05/20 08:36 97 97/68 03/05/20 05:45 106 17 30 03/05/20 05:17 99 97/68 (78) 03/05/20 04:00 97.9 100 15 90/65 (73) 100 03/05/20 04:00 30 03/05/20 04:00 Mechanical Ventilator 03/05/20 03:39 99 03/05/20 03:31 101 15 96 Mechanical Ventilator 30 03/05/20 03:30 101 18 30 03/05/20 02:45 103 89/63 (72) 03/05/20 01:20 87 21 30 03/05/20 00:00 Mechanical Ventilator 03/05/20 00:00 30 03/05/20 00:00 97.7 91 19 97/68 (78) 100 03/04/20 23:55 88 21 30 03/04/20 23:38 86 03/04/20 21:54 90 21 30 03/04/20 20:32 88 87/50 03/04/20 20:00 30 03/04/20 20:00 98.1 91 19 99/56 (70) 99 03/04/20 20:00 Mechanical Ventilator 03/04/20 19:58 89 19 30 03/04/20 19:06 91 03/04/20 17:12 95 15 30 03/04/20 16:00 91 03/04/20 16:00 97.7 90 18 92/62 (72) 97 03/04/20 16:00 30 03/04/20 16:00 Mechanical Ventilator 03/04/20 15:13 101 20 30 03/04/20 13:14 86 15 30 03/04/20 12:00 Mechanical Ventilator 03/04/20 12:00 96.8 88 18 91/65 (74) 98 03/04/20 12:00 30 03/04/20 12:00 80 03/04/20 11:28 85 17 30 03/04/20 09:20 93 129/74 03/04/20 08:59 93 14 30 Intake and Output 03/04/20 03/05/20 19:00 07:00 Intake Total 500 ml 810 ml Output Total 320 ml 200 ml Balance 180 ml 610 ml Free Water 100 ml 100 ml IV Total 100 ml Tube Feeding 400 ml 610 ml Output Urine Total 320 ml 200 ml # Bowel Movements 2 Laboratory Tests 03/05/20 03:51: White Blood Count 7.2, Red Blood Count 3.41L, Hemoglobin 10.4L, Hematocrit 33.3L , Mean Corpuscular Volume 98, Mean Corpuscular Hemoglobin 30.4, Mean Corpuscular Hemoglobin Concent 31.1L, Red Cell Distribution Width 16.7H, Platelet Count 189, Mean Platelet Volume 7.9, Neutrophils (%) (Auto) 76.8H, Lymphocytes (%) (Auto) 11.9L, Monocytes (%) (Auto) 10.0, Eosinophils (%) (Auto) 0.3, Basophils (%) (Auto) 0.9, Sodium Level 138, Potassium Level 4.8, Chloride Level 108H, Carbon Dioxide Level 23, Anion Gap 7, Blood Urea Nitrogen 26H, Creatinine 0.8, Estimat Glomerular Filtration Rate > 60, Glucose Level 128H, Calcium Level 8.2L, Total Bilirubin 0.4, Aspartate Amino Transf (AST/SGOT) 25, Alanine Aminotransferase (ALT/SGPT) 42, Alkaline Phosphatase 155H, Total Protein 6.2L, Albumin 1.7L, Globulin 4.5, Albumin/Globulin Ratio 0.4L Height (Feet): 5 Height (Inches): 5.00 Weight (Pounds): 147 Objective General Appearance: WD/WN, confused EENT: PERRL/EOMI, normal ENT inspection Neck: non-tender, normal alignment. trach c/d/i Cardiovascular: normal peripheral pulses, normal rate Respiratory/Chest: chest wall non-tender, lungs clear, normal breath sounds Abdomen: normal bowel sounds, non tender Edema: no edema noted Arm (L), no edema noted Arm (R) Neurologic: disoriented, unresponsive Skin: normal pigmentation Lymphatic: normal anterior cervical (L), normal anterior cervical (R) Liborio Dugan MD Mar 05, 2020 08:54
--- NOTE | 2020-03-05 10:10 | General Progress Note ---
Assessment/Plan Assessment/Plan: Assessment - Resp failure -s/p PEG - Shock - s/p W[place] - anasarca - Anemia - abnormal LFT Recommendations - TF - OK to restart Eliquis from GI standpoint - Vent - Supportive care - f/u hepatitis serologies>>> neg Subjective ROS Limited/Unobtainable: No Allergies: Coded Allergies: PENICILLINS (Verified Allergy, Severe, 08/07/12) FISH CONTAINING PRODUCTS (Verified Allergy, Unknown, 06/02/18) Uncoded Allergies: seafood (Allergy, Unknown, 06/02/18) Objective Last 24 Hour Vital Signs Date Time Temp Pulse Resp B/P (MAP) Pulse Ox O2 Delivery O2 Flow Rate FiO2 03/05/20 08:36 97 97/68 03/05/20 08:00 30 03/05/20 08:00 Mechanical Ventilator 03/05/20 08:00 93 03/05/20 08:00 97.9 84 16 106/69 (81) 100 03/05/20 05:45 106 17 30 03/05/20 05:17 99 97/68 (78) 03/05/20 04:00 97.9 100 15 90/65 (73) 100 03/05/20 04:00 30 03/05/20 04:00 Mechanical Ventilator 03/05/20 03:39 99 03/05/20 03:31 101 15 96 Mechanical Ventilator 30 03/05/20 03:30 101 18 30 03/05/20 02:45 103 89/63 (72) 03/05/20 01:20 87 21 30 03/05/20 00:00 Mechanical Ventilator 03/05/20 00:00 30 03/05/20 00:00 97.7 91 19 97/68 (78) 100 03/04/20 23:55 88 21 30 03/04/20 23:38 86 03/04/20 21:54 90 21 30 03/04/20 20:32 88 87/50 03/04/20 20:00 30 03/04/20 20:00 98.1 91 19 99/56 (70) 99 03/04/20 20:00 Mechanical Ventilator 03/04/20 19:58 89 19 30 03/04/20 19:06 91 03/04/20 17:12 95 15 30 03/04/20 16:00 91 03/04/20 16:00 97.7 90 18 92/62 (72) 97 03/04/20 16:00 30 03/04/20 16:00 Mechanical Ventilator 03/04/20 15:13 101 20 30 03/04/20 13:14 86 15 30 03/04/20 12:00 Mechanical Ventilator 03/04/20 12:00 96.8 88 18 91/65 (74) 98 03/04/20 12:00 30 03/04/20 12:00 80 03/04/20 11:28 85 17 30 Intake and Output 03/04/20 03/05/20 19:00 07:00 Intake Total 500 ml 810 ml Output Total 320 ml 200 ml Balance 180 ml 610 ml Free Water 100 ml 100 ml IV Total 100 ml Tube Feeding 400 ml 610 ml Output Urine Total 320 ml 200 ml # Bowel Movements 2 Laboratory Tests 03/05/20 03:51: White Blood Count 7.2, Red Blood Count 3.41L, Hemoglobin 10.4L, Hematocrit 33.3L , Mean Corpuscular Volume 98, Mean Corpuscular Hemoglobin 30.4, Mean Corpuscular Hemoglobin Concent 31.1L, Red Cell Distribution Width 16.7H, Platelet Count 189, Mean Platelet Volume 7.9, Neutrophils (%) (Auto) 76.8H, Lymphocytes (%) (Auto) 11.9L, Monocytes (%) (Auto) 10.0, Eosinophils (%) (Auto) 0.3, Basophils (%) (Auto) 0.9, Sodium Level 138, Potassium Level 4.8, Chloride Level 108H, Carbon Dioxide Level 23, Anion Gap 7, Blood Urea Nitrogen 26H, Creatinine 0.8, Estimat Glomerular Filtration Rate > 60, Glucose Level 128H, Calcium Level 8.2L, Total Bilirubin 0.4, Aspartate Amino Transf (AST/SGOT) 25, Alanine Aminotransferase (ALT/SGPT) 42, Alkaline Phosphatase 155H, Total Protein 6.2L, Albumin 1.7L, Globulin 4.5, Albumin/Globulin Ratio 0.4L Height (Feet): 5 Height (Inches): 5.00 Weight (Pounds): 147 General Appearance: no apparent distress EENT: normal ENT inspection Neck: supple Cardiovascular: normal rate Respiratory/Chest: decreased breath sounds Abdomen: hypoactive bowel sounds Extremities: non-tender Ricki Alvarado MD Mar 05, 2020 10:10
--- NOTE | 2020-03-05 10:46 | Infectious Diseases Prog Note ---
Assessment/Plan Assessment/Plan antibiotics : none A 1. acenitobacter pneumonia s/p rx COVID 19 negative 2. respiratory failure s/p tracheostomy 3. neurofibromatosis 4. seizures 5. pulmonary hypertension 6. + blood cultures with coag neg staph likely contaminated P 1. continue off antibiotics 2. will follow up cultures Subjective ROS Limited/Unobtainable: Yes Allergies: Coded Allergies: PENICILLINS (Verified Allergy, Severe, 08/07/12) FISH CONTAINING PRODUCTS (Verified Allergy, Unknown, 06/02/18) Uncoded Allergies: seafood (Allergy, Unknown, 06/02/18) Objective Last 24 Hour Vital Signs Date Time Temp Pulse Resp B/P (MAP) Pulse Ox O2 Delivery O2 Flow Rate FiO2 03/05/20 09:09 97 22 30 03/05/20 08:36 97 97/68 03/05/20 08:00 30 03/05/20 08:00 Mechanical Ventilator 03/05/20 08:00 93 03/05/20 08:00 97.9 84 16 106/69 (81) 100 03/05/20 07:21 82 23 30 03/05/20 05:45 106 17 30 03/05/20 05:17 99 97/68 (78) 03/05/20 04:00 97.9 100 15 90/65 (73) 100 03/05/20 04:00 30 03/05/20 04:00 Mechanical Ventilator 03/05/20 03:39 99 03/05/20 03:31 101 15 96 Mechanical Ventilator 30 03/05/20 03:30 101 18 30 03/05/20 02:45 103 89/63 (72) 03/05/20 01:20 87 21 30 03/05/20 00:00 Mechanical Ventilator 03/05/20 00:00 30 03/05/20 00:00 97.7 91 19 97/68 (78) 100 03/04/20 23:55 88 21 30 03/04/20 23:38 86 03/04/20 21:54 90 21 30 03/04/20 20:32 88 87/50 03/04/20 20:00 30 03/04/20 20:00 98.1 91 19 99/56 (70) 99 03/04/20 20:00 Mechanical Ventilator 03/04/20 19:58 89 19 30 03/04/20 19:06 91 03/04/20 17:12 95 15 30 03/04/20 16:00 91 03/04/20 16:00 97.7 90 18 92/62 (72) 97 03/04/20 16:00 30 03/04/20 16:00 Mechanical Ventilator 03/04/20 15:13 101 20 30 03/04/20 13:14 86 15 30 03/04/20 12:00 Mechanical Ventilator 03/04/20 12:00 96.8 88 18 91/65 (74) 98 03/04/20 12:00 30 03/04/20 12:00 80 03/04/20 11:28 85 17 30 Height (Feet): 5 Height (Inches): 5.00 Weight (Pounds): 147 HEENT: status post trach Respiratory/Chest: lungs clear Cardiovascular: normal rate, regular rhythm, no gallop/murmur Abdomen: soft, non tender, other - GT Extremities: no edema, other - right arm PICC Laboratory Tests Test 03/05/20 03:51 White Blood Count 7.2 K/UL (4.8-10.8) Red Blood Count 3.41 M/UL (4.20-5.40) L Hemoglobin 10.4 G/DL (12.0-16.0) L Hematocrit 33.3 % (37.0-47.0) L Mean Corpuscular Volume 98 FL (80-99) Mean Corpuscular Hemoglobin 30.4 PG (27.0-31.0) Mean Corpuscular Hemoglobin Concent 31.1 G/DL (32.0-36.0) L Red Cell Distribution Width 16.7 % (11.6-14.8) H Platelet Count 189 K/UL (150-450) Mean Platelet Volume 7.9 FL (6.5-10.1) Neutrophils (%) (Auto) 76.8 % (45.0-75.0) H Lymphocytes (%) (Auto) 11.9 % (20.0-45.0) L Monocytes (%) (Auto) 10.0 % (1.0-10.0) Eosinophils (%) (Auto) 0.3 % (0.0-3.0) Basophils (%) (Auto) 0.9 % (0.0-2.0) Sodium Level 138 MMOL/L (136-145) Potassium Level 4.8 MMOL/L (3.5-5.1) Chloride Level 108 MMOL/L (98-107) H Carbon Dioxide Level 23 MMOL/L (21-32) Anion Gap 7 mmol/L (5-15) Blood Urea Nitrogen 26 mg/dL (7-18) H Creatinine 0.8 MG/DL (0.55-1.30) Estimat Glomerular Filtration Rate > 60 mL/min (>60) Glucose Level 128 MG/DL (74-106) H Calcium Level 8.2 MG/DL (8.5-10.1) L Total Bilirubin 0.4 MG/DL (0.2-1.0) Aspartate Amino Transf (AST/SGOT) 25 U/L (15-37) Alanine Aminotransferase (ALT/SGPT) 42 U/L (12-78) Alkaline Phosphatase 155 U/L (46-116) H Total Protein 6.2 G/DL (6.4-8.2) L Albumin 1.7 G/DL (3.4-5.0) L Globulin 4.5 g/dL Albumin/Globulin Ratio 0.4 (1.0-2.7) L Current Medications Medications (Trade) Dose Ordered Sig/Brian Route PRN Reason Start Time Stop Time Status Last Admin Dose Admin Acetaminophen (Tylenol) 650 mg Q4H PRN NG Mild Pain (Pain Scale 1-3) 02/29/20 17:30 03/15/20 17:29 03/03/20 20:39 Acetaminophen (Tylenol) 650 mg Q4H PRN NG Temp >100.5 02/29/20 18:00 03/15/20 17:59 02/29/20 22:43 Al Hydroxide/Mg Hydroxide (Mylanta) 30 ml Q4H PRN ORAL Dyspepsia 02/29/20 18:00 03/15/20 17:59 Apixaban (Eliquis) 5 mg BID ORAL 03/03/20 18:00 06/01/20 17:59 03/05/20 08:36 Artificial Tears (Lacri-Lube) 1 applic EVERY 8 HOURS BOTH EYES 02/29/20 22:00 03/18/20 09:29 03/05/20 05:15 Carbamazepine (TEGretol) 200 mg TID NG 03/01/20 09:00 03/31/20 08:59 03/05/20 08:35 Chlorhexidine Gluconate (Gricelda-Hex 2%) 1 applic DAILY@2000 TOPIC 02/29/20 20:00 05/26/20 19:59 03/04/20 20:32 Gabapentin (Neurontin) 100 mg THREE TIMES A DAY ORAL 03/01/20 09:00 03/31/20 08:59 03/05/20 08:33 Lansoprazole (Prevacid) 30 mg DAILY NG 03/01/20 09:00 03/15/20 08:59 03/05/20 08:34 Levetiracetam 100 ml @ 400 mls/hr Q12HR IVPB 02/29/20 21:00 05/19/20 08:59 03/05/20 08:33 Magnesium Hydroxide (Mom) 30 ml TIDPRN PRN NG Constipation 02/29/20 18:00 03/30/20 17:59 Metoclopramide HCl (Reglan) 5 mg Q6H IVP 02/29/20 20:00 03/26/20 19:59 03/05/20 08:36 Metoclopramide HCl (Reglan) 5 mg Q6H PRN IVP Nausea & Vomiting 02/29/20 18:00 03/20/20 17:59 Metoprolol Tartrate (Lopressor) 25 mg Q12HR ORAL 02/29/20 21:00 05/15/20 20:59 03/04/20 09:20 Patient Own Medication (Patient's Own Med) 1 ea DAILY ORAL 03/01/20 09:00 03/31/20 08:59 03/05/20 08:33 Patient Own Medication (Patient's Own Med) 1 ea Q12HR ORAL 02/29/20 21:00 03/30/20 20:59 03/05/20 08:33 Sildenafil Citrate (Revatio) 20 mg Q8HR ORAL 03/01/20 06:00 05/30/20 05:59 03/03/20 13:28 Maci Deleon MD Mar 05, 2020 10:46
--- NOTE | 2020-03-05 12:20 | Surgery Progress Note ---
Surgery Progress Note Subjective Procedure Performed tracheostomy Symptoms: improved, tolerating diet, passing flatus, BM Objective Last 24 Hour Vital Signs Date Time Temp Pulse Resp B/P (MAP) Pulse Ox O2 Delivery O2 Flow Rate FiO2 03/05/20 11:10 102 18 30 03/05/20 09:09 97 22 30 03/05/20 08:36 97 97/68 03/05/20 08:00 30 03/05/20 08:00 Mechanical Ventilator 03/05/20 08:00 93 03/05/20 08:00 97.9 84 16 106/69 (81) 100 03/05/20 07:21 82 23 30 03/05/20 05:45 106 17 30 03/05/20 05:17 99 97/68 (78) 03/05/20 04:00 97.9 100 15 90/65 (73) 100 03/05/20 04:00 30 03/05/20 04:00 Mechanical Ventilator 03/05/20 03:39 99 03/05/20 03:31 101 15 96 Mechanical Ventilator 30 03/05/20 03:30 101 18 30 03/05/20 02:45 103 89/63 (72) 03/05/20 01:20 87 21 30 03/05/20 00:00 Mechanical Ventilator 03/05/20 00:00 30 03/05/20 00:00 97.7 91 19 97/68 (78) 100 03/04/20 23:55 88 21 30 03/04/20 23:38 86 03/04/20 21:54 90 21 30 03/04/20 20:32 88 87/50 03/04/20 20:00 30 03/04/20 20:00 98.1 91 19 99/56 (70) 99 03/04/20 20:00 Mechanical Ventilator 03/04/20 19:58 89 19 30 03/04/20 19:06 91 03/04/20 17:12 95 15 30 03/04/20 16:00 91 03/04/20 16:00 97.7 90 18 92/62 (72) 97 03/04/20 16:00 30 03/04/20 16:00 Mechanical Ventilator 03/04/20 15:13 101 20 30 03/04/20 13:14 86 15 30 I&O Intake and Output 03/04/20 03/05/20 19:00 07:00 Intake Total 500 ml 810 ml Output Total 320 ml 200 ml Balance 180 ml 610 ml Free Water 100 ml 100 ml IV Total 100 ml Tube Feeding 400 ml 610 ml Output Urine Total 320 ml 200 ml # Bowel Movements 2 Dressing: dry Wound: clean Cardiovascular: RSR Respiratory: clear, decreased breath sounds Abdomen: soft, non-tender, present bowel sounds Extremities: no edema, no tenderness, no cyanosis Laboratory Tests Test 03/05/20 03:51 White Blood Count 7.2 K/UL (4.8-10.8) Red Blood Count 3.41 M/UL (4.20-5.40) L Hemoglobin 10.4 G/DL (12.0-16.0) L Hematocrit 33.3 % (37.0-47.0) L Mean Corpuscular Volume 98 FL (80-99) Mean Corpuscular Hemoglobin 30.4 PG (27.0-31.0) Mean Corpuscular Hemoglobin Concent 31.1 G/DL (32.0-36.0) L Red Cell Distribution Width 16.7 % (11.6-14.8) H Platelet Count 189 K/UL (150-450) Mean Platelet Volume 7.9 FL (6.5-10.1) Neutrophils (%) (Auto) 76.8 % (45.0-75.0) H Lymphocytes (%) (Auto) 11.9 % (20.0-45.0) L Monocytes (%) (Auto) 10.0 % (1.0-10.0) Eosinophils (%) (Auto) 0.3 % (0.0-3.0) Basophils (%) (Auto) 0.9 % (0.0-2.0) Sodium Level 138 MMOL/L (136-145) Potassium Level 4.8 MMOL/L (3.5-5.1) Chloride Level 108 MMOL/L (98-107) H Carbon Dioxide Level 23 MMOL/L (21-32) Anion Gap 7 mmol/L (5-15) Blood Urea Nitrogen 26 mg/dL (7-18) H Creatinine 0.8 MG/DL (0.55-1.30) Estimat Glomerular Filtration Rate > 60 mL/min (>60) Glucose Level 128 MG/DL (74-106) H Calcium Level 8.2 MG/DL (8.5-10.1) L Total Bilirubin 0.4 MG/DL (0.2-1.0) Aspartate Amino Transf (AST/SGOT) 25 U/L (15-37) Alanine Aminotransferase (ALT/SGPT) 42 U/L (12-78) Alkaline Phosphatase 155 U/L (46-116) H Total Protein 6.2 G/DL (6.4-8.2) L Albumin 1.7 G/DL (3.4-5.0) L Globulin 4.5 g/dL Albumin/Globulin Ratio 0.4 (1.0-2.7) L Plan Problems: (1) Respiratory failure Assessment & Plan: Respiratory insufficiency requiring prolonged ventilatory support currently remains on vent support unable to wean safely. Patient with altered level consciousness this time not responsive. Patient is a candidate for a tracheostomy. Pulmonology discussed with the family and they have agreed to proceed. Will optimize and plan for surgical intervention soon. Tracheostomy indicated and recommended. Thank you allowing me to participate in patient's care will follow with recommendations s/p trach improving labs noted trach okay weaning vent peg sub acute eval for placement improving more alert and responsive downgraded comfortable Bassam Hui Mar 05, 2020 12:20
--- NOTE | 2020-03-05 13:25 | Pulmonology Progress Note ---
Subjective ROS Limited/Unobtainable: No Constitutional: Reports: fever, other - low grade fever last night Gastrointestinal/Abdominal: Reports: other - had EGD & PEG placement today Allergies: Coded Allergies: PENICILLINS (Verified Allergy, Severe, 08/07/12) FISH CONTAINING PRODUCTS (Verified Allergy, Unknown, 06/02/18) Uncoded Allergies: seafood (Allergy, Unknown, 06/02/18) All Systems: reviewed and negative except above Objective Last 24 Hour Vital Signs Date Time Temp Pulse Resp B/P (MAP) Pulse Ox O2 Delivery O2 Flow Rate FiO2 03/05/20 12:00 96.8 102 19 107/72 (84) 100 03/05/20 12:00 30 03/05/20 12:00 Mechanical Ventilator 03/05/20 12:00 103 03/05/20 11:10 102 18 30 03/05/20 09:09 97 22 30 03/05/20 08:36 97 97/68 03/05/20 08:00 30 03/05/20 08:00 Mechanical Ventilator 03/05/20 08:00 93 03/05/20 08:00 97.9 84 16 106/69 (81) 100 03/05/20 07:21 82 23 30 03/05/20 05:45 106 17 30 03/05/20 05:17 99 97/68 (78) 03/05/20 04:00 97.9 100 15 90/65 (73) 100 03/05/20 04:00 30 03/05/20 04:00 Mechanical Ventilator 03/05/20 03:39 99 03/05/20 03:31 101 15 96 Mechanical Ventilator 30 03/05/20 03:30 101 18 30 03/05/20 02:45 103 89/63 (72) 03/05/20 01:20 87 21 30 03/05/20 00:00 Mechanical Ventilator 03/05/20 00:00 30 03/05/20 00:00 97.7 91 19 97/68 (78) 100 03/04/20 23:55 88 21 30 03/04/20 23:38 86 03/04/20 21:54 90 21 30 03/04/20 20:32 88 87/50 03/04/20 20:00 30 03/04/20 20:00 98.1 91 19 99/56 (70) 99 03/04/20 20:00 Mechanical Ventilator 03/04/20 19:58 89 19 30 03/04/20 19:06 91 03/04/20 17:12 95 15 30 03/04/20 16:00 91 03/04/20 16:00 97.7 90 18 92/62 (72) 97 03/04/20 16:00 30 03/04/20 16:00 Mechanical Ventilator 03/04/20 15:13 101 20 30 Intake and Output 03/04/20 03/05/20 19:00 07:00 Intake Total 500 ml 810 ml Output Total 320 ml 200 ml Balance 180 ml 610 ml Free Water 100 ml 100 ml IV Total 100 ml Tube Feeding 400 ml 610 ml Output Urine Total 320 ml 200 ml # Bowel Movements 2 Laboratory Tests 03/05/20 03:51: White Blood Count 7.2, Red Blood Count 3.41L, Hemoglobin 10.4L, Hematocrit 33.3L , Mean Corpuscular Volume 98, Mean Corpuscular Hemoglobin 30.4, Mean Corpuscular Hemoglobin Concent 31.1L, Red Cell Distribution Width 16.7H, Platelet Count 189, Mean Platelet Volume 7.9, Neutrophils (%) (Auto) 76.8H, Lymphocytes (%) (Auto) 11.9L, Monocytes (%) (Auto) 10.0, Eosinophils (%) (Auto) 0.3, Basophils (%) (Auto) 0.9, Sodium Level 138, Potassium Level 4.8, Chloride Level 108H, Carbon Dioxide Level 23, Anion Gap 7, Blood Urea Nitrogen 26H, Creatinine 0.8, Estimat Glomerular Filtration Rate > 60, Glucose Level 128H, Calcium Level 8.2L, Total Bilirubin 0.4, Aspartate Amino Transf (AST/SGOT) 25, Alanine Aminotransferase (ALT/SGPT) 42, Alkaline Phosphatase 155H, Total Protein 6.2L, Albumin 1.7L, Globulin 4.5, Albumin/Globulin Ratio 0.4L Current Medications Medications (Trade) Dose Ordered Sig/Brian Route PRN Reason Start Time Stop Time Status Last Admin Dose Admin Acetaminophen (Tylenol) 650 mg Q4H PRN NG Mild Pain (Pain Scale 1-3) 02/29/20 17:30 03/15/20 17:29 03/03/20 20:39 Acetaminophen (Tylenol) 650 mg Q4H PRN NG Temp >100.5 02/29/20 18:00 03/15/20 17:59 02/29/20 22:43 Al Hydroxide/Mg Hydroxide (Mylanta) 30 ml Q4H PRN ORAL Dyspepsia 02/29/20 18:00 03/15/20 17:59 Apixaban (Eliquis) 5 mg BID ORAL 03/03/20 18:00 06/01/20 17:59 03/05/20 08:36 Artificial Tears (Lacri-Lube) 1 applic EVERY 8 HOURS BOTH EYES 02/29/20 22:00 03/18/20 09:29 03/05/20 05:15 Carbamazepine (TEGretol) 200 mg TID NG 03/01/20 09:00 03/31/20 08:59 03/05/20 08:35 Chlorhexidine Gluconate (Gricelda-Hex 2%) 1 applic DAILY@2000 TOPIC 02/29/20 20:00 05/26/20 19:59 03/04/20 20:32 Gabapentin (Neurontin) 100 mg THREE TIMES A DAY ORAL 03/01/20 09:00 03/31/20 08:59 03/05/20 08:33 Lansoprazole (Prevacid) 30 mg DAILY NG 03/01/20 09:00 03/15/20 08:59 03/05/20 08:34 Levetiracetam 100 ml @ 400 mls/hr Q12HR IVPB 02/29/20 21:00 05/19/20 08:59 03/05/20 08:33 Magnesium Hydroxide (Mom) 30 ml TIDPRN PRN NG Constipation 02/29/20 18:00 03/30/20 17:59 Metoclopramide HCl (Reglan) 5 mg Q6H IVP 02/29/20 20:00 03/26/20 19:59 03/05/20 08:36 Metoclopramide HCl (Reglan) 5 mg Q6H PRN IVP Nausea & Vomiting 02/29/20 18:00 03/20/20 17:59 Metoprolol Tartrate (Lopressor) 25 mg Q12HR ORAL 02/29/20 21:00 05/15/20 20:59 03/04/20 09:20 Patient Own Medication (Patient's Own Med) 1 ea DAILY ORAL 03/01/20 09:00 03/31/20 08:59 03/05/20 08:33 Patient Own Medication (Patient's Own Med) 1 ea Q12HR ORAL 02/29/20 21:00 03/30/20 20:59 03/05/20 08:33 Sildenafil Citrate (Revatio) 20 mg Q8HR ORAL 03/01/20 06:00 05/30/20 05:59 03/03/20 13:28 Assessment/Plan Assessment/Plan Pulmonary Progress Note Assessment/Plan Assessment/Plan respiratory failure s/p trach pneumonia improving pulmonary hypertension elevated troponin possible NSTEMI paraplegia hypoxemia seizure history brain masses, chronic moderate PCM s/pGT PLAN trach care noted GT care IV antibiotics noted imaging noted respiratory care and nursing care noted Ventilatory support on- unable to wean mental status remains poor and not improved monitor acid base and adjust supportive care suction as needed monitor heart rate seizure meds- as is oxygen therapy prognosis same nutrition off load and monitor skin update family as to care and placement will need subacute care when stable medications/laboratory data/nursing notes reviewed in detail note reviewed and edited care discussed with RN and RT Vital Signs noted Labs noted Objective: WDWN NAD on vent, trach in place reduced breath sounds bilaterally without rhonchi or wheeze [id number] without MRG NABS nontender GT no CCE nonfocal poor LOC reduced ROM skin noted reviewed and edited feeding tube in place Marcus Campbell MD Mar 05, 2020 13:25
[2020-03-05] MEDS: Dyna-Hex 2% Top Sol 2oz TOPIC SCH (20:38)
[2020-03-06] VITALS: BP 105/67
--- NOTE | 2020-03-06 00:20 | Cardiology Progress Note ---
Subjective DATE OF SERVICE: Mar 04, 2020 On vent support - s/p uncomplicated trach 02/27/20. BP range remains unchanged, but stable perfusion of extremities noted. Per neuro, no seizure activity noted, but remains unresponsive Monitor: sinus tachycardia and sinus rhythm Objective Last 24 Hour Vital Signs Date Time Temp Pulse Resp B/P (MAP) Pulse Ox O2 Delivery O2 Flow Rate FiO2 03/05/20 21:04 103 03/05/20 20:15 91 97/68 03/05/20 20:00 98.9 100 16 97/68 (78) 100 03/05/20 20:00 Mechanical Ventilator 03/05/20 20:00 30 03/05/20 19:00 101 18 30 03/05/20 16:59 102 20 30 03/05/20 16:00 Mechanical Ventilator 03/05/20 16:00 96 03/05/20 16:00 98.2 101 16 103/73 (83) 99 03/05/20 16:00 30 03/05/20 14:53 98 20 30 03/05/20 13:00 102 20 30 03/05/20 12:00 96.8 102 19 107/72 (84) 100 03/05/20 12:00 30 03/05/20 12:00 Mechanical Ventilator 03/05/20 12:00 103 03/05/20 11:10 102 18 30 03/05/20 09:09 97 22 30 03/05/20 08:36 97 97/68 03/05/20 08:00 30 03/05/20 08:00 Mechanical Ventilator 03/05/20 08:00 93 03/05/20 08:00 97.9 84 16 106/69 (81) 100 03/05/20 07:21 82 23 30 03/05/20 05:45 106 17 30 03/05/20 05:17 99 97/68 (78) 03/05/20 04:00 97.9 100 15 90/65 (73) 100 03/05/20 04:00 30 03/05/20 04:00 Mechanical Ventilator 03/05/20 03:39 99 03/05/20 03:31 101 15 96 Mechanical Ventilator 30 03/05/20 03:30 101 18 30 03/05/20 02:45 103 89/63 (72) 03/05/20 01:20 87 21 30 ROS: no change from my evaluation on 02/14/20 HEENT: Thin Trach secretions RHYTHM: ST LUNGS: bilateral rhonchi, trach site clean CARDIAC: normal rate, regular rhythm, normal S1 and S2 ABDOMEN: normal bowel sounds, non tender, soft EXTREMITIES: non-tender, trace edema, other - PICC line Laboratory Tests Test 03/05/20 03:51 White Blood Count 7.2 K/UL (4.8-10.8) Red Blood Count 3.41 M/UL (4.20-5.40) L Hemoglobin 10.4 G/DL (12.0-16.0) L Hematocrit 33.3 % (37.0-47.0) L Mean Corpuscular Volume 98 FL (80-99) Mean Corpuscular Hemoglobin 30.4 PG (27.0-31.0) Mean Corpuscular Hemoglobin Concent 31.1 G/DL (32.0-36.0) L Red Cell Distribution Width 16.7 % (11.6-14.8) H Platelet Count 189 K/UL (150-450) Mean Platelet Volume 7.9 FL (6.5-10.1) Neutrophils (%) (Auto) 76.8 % (45.0-75.0) H Lymphocytes (%) (Auto) 11.9 % (20.0-45.0) L Monocytes (%) (Auto) 10.0 % (1.0-10.0) Eosinophils (%) (Auto) 0.3 % (0.0-3.0) Basophils (%) (Auto) 0.9 % (0.0-2.0) Sodium Level 138 MMOL/L (136-145) Potassium Level 4.8 MMOL/L (3.5-5.1) Chloride Level 108 MMOL/L (98-107) H Carbon Dioxide Level 23 MMOL/L (21-32) Anion Gap 7 mmol/L (5-15) Blood Urea Nitrogen 26 mg/dL (7-18) H Creatinine 0.8 MG/DL (0.55-1.30) Estimat Glomerular Filtration Rate > 60 mL/min (>60) Glucose Level 128 MG/DL (74-106) H Calcium Level 8.2 MG/DL (8.5-10.1) L Total Bilirubin 0.4 MG/DL (0.2-1.0) Aspartate Amino Transf (AST/SGOT) 25 U/L (15-37) Alanine Aminotransferase (ALT/SGPT) 42 U/L (12-78) Alkaline Phosphatase 155 U/L (46-116) H Total Protein 6.2 G/DL (6.4-8.2) L Albumin 1.7 G/DL (3.4-5.0) L Globulin 4.5 g/dL Albumin/Globulin Ratio 0.4 (1.0-2.7) L Assessment/Plan Assessment/Plan Respiratory Failure - s/p trach UTI Sepsis with shock recovering Acute myocardial infarction (NSTE) Neurofibromatosis with edema Hypokalemia Hypomagnesemia Hypovolemia Pulmonary Hypertension Aspiration PNA Seizure Disorder Pleural effusions Encephalopathy Hypernatremia Vent support Anti-sz meds Steroids discont'd anti-plt rx and anticoagulation resumed since trach and subseq PEG completed. Beta blockade with hold parameter for low BP. Antimicrobials and resp rx Nutritional suppl hypotonic IVF while NPO; fluid boluses for low BP. Replace electrolytes Marcus Main MD Mar 06, 2020 00:20
--- NOTE | 2020-03-06 00:22 | Cardiology Progress Note ---
Subjective DATE OF SERVICE: Mar 05, 2020 On vent support - s/p uncomplicated trach 02/27/20. Feeding tube placed without complication. BP range remains unchanged, but stable perfusion of extremities noted. Per neuro, no seizure activity noted, but remains unresponsive Monitor: sinus tachycardia and sinus rhythm Objective Last 24 Hour Vital Signs Date Time Temp Pulse Resp B/P (MAP) Pulse Ox O2 Delivery O2 Flow Rate FiO2 03/05/20 21:04 103 03/05/20 20:15 91 97/68 03/05/20 20:00 98.9 100 16 97/68 (78) 100 03/05/20 20:00 Mechanical Ventilator 03/05/20 20:00 30 03/05/20 19:00 101 18 30 03/05/20 16:59 102 20 30 03/05/20 16:00 Mechanical Ventilator 03/05/20 16:00 96 03/05/20 16:00 98.2 101 16 103/73 (83) 99 03/05/20 16:00 30 03/05/20 14:53 98 20 30 03/05/20 13:00 102 20 30 03/05/20 12:00 96.8 102 19 107/72 (84) 100 03/05/20 12:00 30 03/05/20 12:00 Mechanical Ventilator 03/05/20 12:00 103 03/05/20 11:10 102 18 30 03/05/20 09:09 97 22 30 03/05/20 08:36 97 97/68 03/05/20 08:00 30 03/05/20 08:00 Mechanical Ventilator 03/05/20 08:00 93 03/05/20 08:00 97.9 84 16 106/69 (81) 100 03/05/20 07:21 82 23 30 03/05/20 05:45 106 17 30 03/05/20 05:17 99 97/68 (78) 03/05/20 04:00 97.9 100 15 90/65 (73) 100 03/05/20 04:00 30 03/05/20 04:00 Mechanical Ventilator 03/05/20 03:39 99 03/05/20 03:31 101 15 96 Mechanical Ventilator 30 03/05/20 03:30 101 18 30 03/05/20 02:45 103 89/63 (72) 03/05/20 01:20 87 21 30 ROS: no change from my evaluation on 02/14/20 HEENT: Thin secretions ET Tube RHYTHM: ST LUNGS: bilateral rhonchi, trach site clean CARDIAC: normal rate, regular rhythm, normal S1 and S2 ABDOMEN: normal bowel sounds, non tender, soft EXTREMITIES: non-tender, trace edema, other - PICC line Laboratory Tests Test 03/05/20 03:51 White Blood Count 7.2 K/UL (4.8-10.8) Red Blood Count 3.41 M/UL (4.20-5.40) L Hemoglobin 10.4 G/DL (12.0-16.0) L Hematocrit 33.3 % (37.0-47.0) L Mean Corpuscular Volume 98 FL (80-99) Mean Corpuscular Hemoglobin 30.4 PG (27.0-31.0) Mean Corpuscular Hemoglobin Concent 31.1 G/DL (32.0-36.0) L Red Cell Distribution Width 16.7 % (11.6-14.8) H Platelet Count 189 K/UL (150-450) Mean Platelet Volume 7.9 FL (6.5-10.1) Neutrophils (%) (Auto) 76.8 % (45.0-75.0) H Lymphocytes (%) (Auto) 11.9 % (20.0-45.0) L Monocytes (%) (Auto) 10.0 % (1.0-10.0) Eosinophils (%) (Auto) 0.3 % (0.0-3.0) Basophils (%) (Auto) 0.9 % (0.0-2.0) Sodium Level 138 MMOL/L (136-145) Potassium Level 4.8 MMOL/L (3.5-5.1) Chloride Level 108 MMOL/L (98-107) H Carbon Dioxide Level 23 MMOL/L (21-32) Anion Gap 7 mmol/L (5-15) Blood Urea Nitrogen 26 mg/dL (7-18) H Creatinine 0.8 MG/DL (0.55-1.30) Estimat Glomerular Filtration Rate > 60 mL/min (>60) Glucose Level 128 MG/DL (74-106) H Calcium Level 8.2 MG/DL (8.5-10.1) L Total Bilirubin 0.4 MG/DL (0.2-1.0) Aspartate Amino Transf (AST/SGOT) 25 U/L (15-37) Alanine Aminotransferase (ALT/SGPT) 42 U/L (12-78) Alkaline Phosphatase 155 U/L (46-116) H Total Protein 6.2 G/DL (6.4-8.2) L Albumin 1.7 G/DL (3.4-5.0) L Globulin 4.5 g/dL Albumin/Globulin Ratio 0.4 (1.0-2.7) L Assessment/Plan Assessment/Plan Respiratory Failure - s/p trach UTI Sepsis with shock recovering Acute myocardial infarction (NSTE) Neurofibromatosis with edema Hypokalemia Hypomagnesemia Hypovolemia Pulmonary Hypertension Aspiration PNA Seizure Disorder Pleural effusions Encephalopathy Hypernatremia Vent support Anti-sz meds Steroids discont'd anti-plt rx and anticoagulation resumed since trach and subseq PEG completed. Beta blockade with hold parameter for low BP. Antimicrobials and resp rx Nutritional suppl hypotonic IVF while NPO; fluid boluses for low BP. Replace electrolytes DC planned to [facility] Marcus Main MD Mar 06, 2020 00:22
[2020-03-06] MEDS: Metoclopramide 10mg/2ml Inj IVP SCH ×4 (01:58→20:21)
[2020-03-06 04:00] VITALS: BP 125/73
[2020-03-06] MEDS: Revatio 20mg tab ORAL SCH ×3 (06:03→22:26)
[2020-03-06] MEDS: Lacri-Lube Opth Oint 3.5gm BOTH EYES SCH ×3 (06:03→22:26)
[2020-03-06] MEDS ORDERED: Cathflo Alteplase 2mg Inj IVP SCH ×2 (06:15→08:00)
--- NOTE | 2020-03-06 07:47 | General Progress Note ---
Assessment/Plan Problem List: (1) Seizure disorder ICD Codes: G40.909 - Epilepsy, unspecified, not intractable,without status epilepticus SNOMED: 365064190 (2) Pulmonary hypertension ICD Codes: I27.20 - Pulmonary hypertension, unspecified SNOMED: 25093780 (3) Respiratory failure ICD Codes: J96.90 - Respiratory failure, unspecified, unspecified whether with hypoxia or hypercapnia SNOMED: 003560915 Qualifiers: Qualified Codes: J96.01 - Acute respiratory failure with hypoxia (4) Severe sepsis ICD Codes: A41.9 - Sepsis, unspecified organism; R65.20 - Severe sepsis without septic shock SNOMED: 85427729 (5) NSTEMI (non-ST elevated myocardial infarction) ICD Codes: I21.4 - Non-ST elevation (NSTEMI) myocardial infarction SNOMED: 06647520 (6) Fever ICD Codes: R50.9 - Fever, unspecified SNOMED: 980207631 (7) Dyspnea ICD Codes: R06.00 - Dyspnea, unspecified SNOMED: 457181830 Status: stable, not improved Assessment/Plan: cont vent support resp care/suctioning trach care consider atropine drops or glycopyrrolate for secretions sz rx monitor for szs/sz precautions gt feeds- monitor residuals try more concentrated feeding reglan q6 dvt/stress ulcer prophylaxis turn q2 resume eliquis dc planning to subacute when tolerating feeds Subjective ROS Limited/Unobtainable: Yes Constitutional: Reports: malaise, weakness HEENT: Reports: no symptoms Cardiovascular: Reports: no symptoms Respiratory: Reports: cough, SOB with excertion, sputum Gastrointestinal/Abdominal: Reports: difficulty swallowing Genitourinary: Reports: no symptoms Neurologic/Psychiatric: Reports: pre-existing deficit, seizure Endocrine: Reports: no symptoms Hematologic/Lymphatic: Reports: anemia Allergies: Coded Allergies: PENICILLINS (Verified Allergy, Severe, 08/07/12) FISH CONTAINING PRODUCTS (Verified Allergy, Unknown, 06/02/18) Uncoded Allergies: seafood (Allergy, Unknown, 06/02/18) All Systems: reviewed and negative except above Subjective still not tolerating feeds. increased residuals. copious secretions. requires suctioning every hr. stable on the vent. poorly responsive. Objective Last 24 Hour Vital Signs Date Time Temp Pulse Resp B/P (MAP) Pulse Ox O2 Delivery O2 Flow Rate FiO2 03/06/20 04:00 Mechanical Ventilator 03/06/20 04:00 98.7 99 20 125/73 (90) 100 03/06/20 04:00 30 03/06/20 03:53 99 03/06/20 02:50 96 16 30 03/06/20 01:05 97 16 30 03/06/20 00:00 98.9 97 20 105/67 (80) 100 03/06/20 00:00 Mechanical Ventilator 03/05/20 23:30 101 03/05/20 22:35 102 18 30 03/05/20 21:04 103 03/05/20 20:53 98 17 30 03/05/20 20:15 91 97/68 03/05/20 20:00 98.9 100 16 97/68 (78) 100 03/05/20 20:00 Mechanical Ventilator 03/05/20 20:00 Mechanical Ventilator 03/05/20 20:00 30 03/05/20 19:00 101 18 30 03/05/20 16:59 102 20 30 03/05/20 16:00 Mechanical Ventilator 03/05/20 16:00 96 03/05/20 16:00 98.2 101 16 103/73 (83) 99 03/05/20 16:00 30 03/05/20 14:53 98 20 30 03/05/20 13:00 102 20 30 03/05/20 12:00 96.8 102 19 107/72 (84) 100 03/05/20 12:00 30 03/05/20 12:00 Mechanical Ventilator 03/05/20 12:00 103 03/05/20 11:10 102 18 30 03/05/20 09:09 97 22 30 03/05/20 08:36 97 97/68 03/05/20 08:00 30 03/05/20 08:00 Mechanical Ventilator 03/05/20 08:00 93 03/05/20 08:00 97.9 84 16 106/69 (81) 100 Intake and Output 03/05/20 03/06/20 19:00 07:00 Intake Total 1260 ml 910 ml Output Total 600 ml Balance 1260 ml 310 ml Free Water 200 ml 150 ml IV Total 400 ml 400 ml Tube Feeding 660 ml 360 ml Output Urine Total 600 ml Height (Feet): 5 Height (Inches): 5.00 Weight (Pounds): 147 Objective General Appearance: WD/WN, confused EENT: PERRL/EOMI, normal ENT inspection Neck: non-tender, normal alignment. trach c/d/i Cardiovascular: normal peripheral pulses, normal rate Respiratory/Chest: chest wall non-tender, lungs clear, normal breath sounds Abdomen: normal bowel sounds, non tender Edema: no edema noted Arm (L), no edema noted Arm (R) Neurologic: disoriented, unresponsive Skin: normal pigmentation Lymphatic: normal anterior cervical (L), normal anterior cervical (R) Liborio Dugan MD Mar 06, 2020 07:46
[2020-03-06 07:59] VITALS: BP 102/75
--- NOTE | 2020-03-06 08:13 | Critical Care Progress Note ---
Assessment/Plan Assessment/Plan respiratory failure s/p trach pneumonia pulmonary hypertension elevated troponin possible NSTEMI paraplegia hypoxemia seizure history brain masses, chronic moderate PCM s/pGT pleural effusion PLAN trach care noted GT care IV antibiotics noted imaging noted- monitor effusions respiratory care and nursing care noted Ventilatory support mental status remains poor and not improved monitor acid base and adjust supportive care suction as needed monitor heart rate seizure meds- as is oxygen therapy prognosis same nutrition off load and monitor skin update family as to care and placement proceed with placement medications/laboratory data/nursing notes reviewed in detail note reviewed and edited care discussed with RN and RT Critical Care - Subjective Interval Events: in NAKIA events reviewed full support at present ROS Limited/Unobtainable: Yes Condition: unchanged Residuals: minimal Tube Feeding Tolerated: yes I&O: Intake and Output 03/05/20 03/06/20 19:00 07:00 Intake Total 1260 ml 910 ml Output Total 600 ml Balance 1260 ml 310 ml Free Water 200 ml 150 ml IV Total 400 ml 400 ml Tube Feeding 660 ml 360 ml Output Urine Total 600 ml Critical Care - Objective ET-Tube: 7.0 ET Position: 25 Last 24 Hour Vital Signs Date Time Temp Pulse Resp B/P (MAP) Pulse Ox O2 Delivery O2 Flow Rate FiO2 03/06/20 07:59 98.2 102 16 102/75 (84) 96 03/06/20 04:00 Mechanical Ventilator 03/06/20 04:00 98.7 99 20 125/73 (90) 100 03/06/20 04:00 30 03/06/20 03:53 99 03/06/20 02:50 96 16 30 03/06/20 01:05 97 16 30 03/06/20 00:00 98.9 97 20 105/67 (80) 100 03/06/20 00:00 Mechanical Ventilator 03/05/20 23:30 101 03/05/20 22:35 102 18 30 03/05/20 21:04 103 03/05/20 20:53 98 17 30 03/05/20 20:15 91 97/68 03/05/20 20:00 98.9 100 16 97/68 (78) 100 03/05/20 20:00 Mechanical Ventilator 03/05/20 20:00 Mechanical Ventilator 03/05/20 20:00 30 03/05/20 19:00 101 18 30 03/05/20 16:59 102 20 30 03/05/20 16:00 Mechanical Ventilator 03/05/20 16:00 96 03/05/20 16:00 98.2 101 16 103/73 (83) 99 03/05/20 16:00 30 03/05/20 14:53 98 20 30 03/05/20 13:00 102 20 30 03/05/20 12:00 96.8 102 19 107/72 (84) 100 03/05/20 12:00 30 03/05/20 12:00 Mechanical Ventilator 03/05/20 12:00 103 03/05/20 11:10 102 18 30 03/05/20 09:09 97 22 30 03/05/20 08:36 97 97/68 Labs: Labs Test 03/04/20 05:35 03/05/20 03:51 White Blood Count 6.9 K/UL (4.8-10.8) 7.2 K/UL (4.8-10.8) Red Blood Count 3.39 M/UL (4.20-5.40) 3.41 M/UL (4.20-5.40) Hemoglobin 10.5 G/DL (12.0-16.0) 10.4 G/DL (12.0-16.0) Hematocrit 33.0 % (37.0-47.0) 33.3 % (37.0-47.0) Mean Corpuscular Volume 97 FL (80-99) 98 FL (80-99) Mean Corpuscular Hemoglobin 30.9 PG (27.0-31.0) 30.4 PG (27.0-31.0) Mean Corpuscular Hemoglobin Concent 31.7 G/DL (32.0-36.0) 31.1 G/DL (32.0-36.0) Red Cell Distribution Width 16.2 % (11.6-14.8) 16.7 % (11.6-14.8) Platelet Count 190 K/UL (150-450) 189 K/UL (150-450) Mean Platelet Volume 8.0 FL (6.5-10.1) 7.9 FL (6.5-10.1) Neutrophils (%) (Auto) 69.3 % (45.0-75.0) 76.8 % (45.0-75.0) Lymphocytes (%) (Auto) 16.7 % (20.0-45.0) 11.9 % (20.0-45.0) Monocytes (%) (Auto) 11.9 % (1.0-10.0) 10.0 % (1.0-10.0) Eosinophils (%) (Auto) 0.6 % (0.0-3.0) 0.3 % (0.0-3.0) Basophils (%) (Auto) 1.5 % (0.0-2.0) 0.9 % (0.0-2.0) Sodium Level 141 MMOL/L (136-145) 138 MMOL/L (136-145) Potassium Level 4.8 MMOL/L (3.5-5.1) 4.8 MMOL/L (3.5-5.1) Chloride Level 108 MMOL/L (98-107) 108 MMOL/L (98-107) Carbon Dioxide Level 25 MMOL/L (21-32) 23 MMOL/L (21-32) Anion Gap 8 mmol/L (5-15) 7 mmol/L (5-15) Blood Urea Nitrogen 25 mg/dL (7-18) 26 mg/dL (7-18) Creatinine 0.8 MG/DL (0.55-1.30) 0.8 MG/DL (0.55-1.30) Estimat Glomerular Filtration Rate > 60 mL/min (>60) > 60 mL/min (>60) Glucose Level 113 MG/DL (74-106) 128 MG/DL (74-106) Calcium Level 8.6 MG/DL (8.5-10.1) 8.2 MG/DL (8.5-10.1) Total Bilirubin 0.5 MG/DL (0.2-1.0) 0.4 MG/DL (0.2-1.0) Aspartate Amino Transf (AST/SGOT) 33 U/L (15-37) 25 U/L (15-37) Alanine Aminotransferase (ALT/SGPT) 53 U/L (12-78) 42 U/L (12-78) Alkaline Phosphatase 166 U/L (46-116) 155 U/L (46-116) Total Protein 6.2 G/DL (6.4-8.2) 6.2 G/DL (6.4-8.2) Albumin 1.6 G/DL (3.4-5.0) 1.7 G/DL (3.4-5.0) Globulin 4.6 g/dL 4.5 g/dL Albumin/Globulin Ratio 0.3 (1.0-2.7) 0.4 (1.0-2.7) Objective: WDWN NAD on vent, trach in place reduced breath sounds bilaterally without rhonchi or wheeze [id number] without MRG NABS nontender GT no CCE nonfocal poor LOC reduced ROM skin noted reviewed and edited Juan Snow MD Mar 06, 2020 08:13
[2020-03-06] MEDS: Eliquis 5mg tablet ORAL SCH ×2 (08:29→17:25)
[2020-03-06] MEDS: SELEXIPAG ORAL SCH ×2 (08:29→20:24)
[2020-03-06] MEDS: carBAMazepine 200mg tab NG SCH ×3 (08:29→17:25)
[2020-03-06] MEDS: OPSUMIT 10 MG ORAL SCH (08:29)
[2020-03-06] MEDS: levETIRAcetam 1,000mg/NS100ml 100 ML IVPB SCH ×2 (08:30→20:21)
[2020-03-06 12:00] VITALS: BP 106/68
--- NOTE | 2020-03-06 12:24 | Surgery Progress Note ---
Surgery Progress Note Subjective Procedure Performed tracheostomy Additional Comments lots of secretions no n/v/f/c labs noted on vent support Objective Last 24 Hour Vital Signs Date Time Temp Pulse Resp B/P (MAP) Pulse Ox O2 Delivery O2 Flow Rate FiO2 03/06/20 12:02 Mechanical Ventilator 03/06/20 12:00 30 03/06/20 09:00 102 102/75 03/06/20 08:00 30 03/06/20 08:00 Mechanical Ventilator 03/06/20 08:00 99 03/06/20 07:59 98.2 102 16 102/75 (84) 96 03/06/20 07:17 103 17 30 03/06/20 04:00 Mechanical Ventilator 03/06/20 04:00 98.7 99 20 125/73 (90) 100 03/06/20 04:00 30 03/06/20 03:53 99 03/06/20 02:50 96 16 30 03/06/20 01:05 97 16 30 03/06/20 00:00 98.9 97 20 105/67 (80) 100 03/06/20 00:00 Mechanical Ventilator 03/05/20 23:30 101 03/05/20 22:35 102 18 30 03/05/20 21:04 103 03/05/20 20:53 98 17 30 03/05/20 20:15 91 97/68 03/05/20 20:00 98.9 100 16 97/68 (78) 100 03/05/20 20:00 Mechanical Ventilator 03/05/20 20:00 Mechanical Ventilator 03/05/20 20:00 30 03/05/20 19:00 101 18 30 03/05/20 16:59 102 20 30 03/05/20 16:00 Mechanical Ventilator 03/05/20 16:00 96 03/05/20 16:00 98.2 101 16 103/73 (83) 99 03/05/20 16:00 30 03/05/20 14:53 98 20 30 03/05/20 13:00 102 20 30 I&O Intake and Output 03/05/20 03/06/20 19:00 07:00 Intake Total 1260 ml 910 ml Output Total 600 ml Balance 1260 ml 310 ml Free Water 200 ml 150 ml IV Total 400 ml 400 ml Tube Feeding 660 ml 360 ml Output Urine Total 600 ml Cardiovascular: RSR Respiratory: decreased breath sounds Abdomen: soft, non-tender, present bowel sounds Extremities: no tenderness, no cyanosis Plan Problems: (1) Respiratory failure Assessment & Plan: Respiratory insufficiency requiring prolonged ventilatory support currently remains on vent support unable to wean safely. Patient with altered level consciousness this time not responsive. Patient is a candidate for a tracheostomy. Pulmonology discussed with the family and they have agreed to proceed. Will optimize and plan for surgical intervention soon. Tracheostomy indicated and recommended. Thank you allowing me to participate in patient's care will follow with recommendations s/p trach improving labs noted prudence chance weaning vent peg sub acute eval for placement improving more alert and responsive downgraded comfortable thick secretions volume of secretions lots cont suctioning vent support Bassam Kinney Mar 06, 2020 12:24
[2020-03-06 16:00] VITALS: BP 94/67
[2020-03-06 20:00] VITALS: BP 106/76
[2020-03-06] MEDS: Dyna-Hex 2% Top Sol 2oz TOPIC SCH (20:22)
--- NOTE | 2020-03-06 22:56 | Cardiology Progress Note ---
Subjective DATE OF SERVICE: Mar 06, 2020 On vent support - s/p uncomplicated trach 02/27/20. Feeding tube placed without complication, but continues to have residual feedings. BP range remains low range. Per neuro, no seizure activity noted, but remains unresponsive Monitor: sinus tachycardia and sinus rhythm Objective Last 24 Hour Vital Signs Date Time Temp Pulse Resp B/P (MAP) Pulse Ox O2 Delivery O2 Flow Rate FiO2 03/06/20 21:00 30 03/06/20 20:22 87 106/76 03/06/20 20:00 Mechanical Ventilator 03/06/20 20:00 86 03/06/20 20:00 97.8 87 14 106/76 (86) 100 03/06/20 18:46 94 20 30 03/06/20 16:00 Mechanical Ventilator 03/06/20 16:00 30 03/06/20 16:00 98.1 90 13 94/67 (76) 100 03/06/20 15:59 83 03/06/20 15:18 85 13 30 03/06/20 12:02 Mechanical Ventilator 03/06/20 12:00 98.4 92 14 106/68 (81) 100 03/06/20 12:00 30 03/06/20 12:00 106 03/06/20 10:45 100 16 30 03/06/20 09:00 102 102/75 03/06/20 08:00 30 03/06/20 08:00 Mechanical Ventilator 03/06/20 08:00 99 03/06/20 07:59 98.2 102 16 102/75 (84) 96 03/06/20 07:17 103 17 30 03/06/20 04:00 Mechanical Ventilator 03/06/20 04:00 98.7 99 20 125/73 (90) 100 03/06/20 04:00 30 03/06/20 03:53 99 03/06/20 02:50 96 16 30 03/06/20 01:05 97 16 30 03/06/20 00:00 98.9 97 20 105/67 (80) 100 03/06/20 00:00 Mechanical Ventilator 03/05/20 23:30 101 ROS: no change from my evaluation on 02/14/20 HEENT: Thin Trach secretions RHYTHM: ST LUNGS: bilateral rhonchi, trach site clean CARDIAC: normal rate, regular rhythm, normal S1 and S2 ABDOMEN: normal bowel sounds, non tender, soft EXTREMITIES: non-tender, trace edema, other - PICC line Assessment/Plan Assessment/Plan Respiratory Failure - s/p trach UTI Sepsis with shock recovering Acute myocardial infarction (NSTE) Neurofibromatosis with edema Hypokalemia Hypomagnesemia Hypovolemia Pulmonary Hypertension Aspiration PNA Seizure Disorder Pleural effusions Encephalopathy Hypernatremia Gastroparesis - s/p GTube placement Vent support Anti-sz meds Steroids discont'd anti-plt rx and anticoagulation resumed Beta blockade with hold parameter for low BP. Antimicrobials and resp rx Nutritional suppl hypotonic IVF while NPO; fluid boluses for low BP. Replace electrolytes Pro-motility agents DC planned to [facility] Marcus Main MD Mar 06, 2020 22:56
--- NOTE | 2020-03-06 23:07 | General Progress Note ---
Assessment/Plan Status: stable, not improved Assessment/Plan: Assessment - Resp failure - s/p PEG - Shock - s/p OK - anasarca - Anemia - abnormal LFT - improving Recommendations - Continue TF today - Eliamarilisis OK - Vent - Supportive care - f/u hepatitis serologies --> negative - f/u Abd U/S ---> negative Subjective Allergies: Coded Allergies: PENICILLINS (Verified Allergy, Severe, 08/07/12) FISH CONTAINING PRODUCTS (Verified Allergy, Unknown, 06/02/18) Uncoded Allergies: seafood (Allergy, Unknown, 06/02/18) Subjective Above noted NAD s/p PEG tolerating TF Objective Last 24 Hour Vital Signs Date Time Temp Pulse Resp B/P (MAP) Pulse Ox O2 Delivery O2 Flow Rate FiO2 03/06/20 21:00 30 03/06/20 20:22 87 106/76 03/06/20 20:00 Mechanical Ventilator 03/06/20 20:00 86 03/06/20 20:00 97.8 87 14 106/76 (86) 100 03/06/20 18:46 94 20 30 03/06/20 16:00 Mechanical Ventilator 03/06/20 16:00 30 03/06/20 16:00 98.1 90 13 94/67 (76) 100 03/06/20 15:59 83 03/06/20 15:18 85 13 30 03/06/20 12:02 Mechanical Ventilator 03/06/20 12:00 98.4 92 14 106/68 (81) 100 03/06/20 12:00 30 03/06/20 12:00 106 03/06/20 10:45 100 16 30 03/06/20 09:00 102 102/75 03/06/20 08:00 30 03/06/20 08:00 Mechanical Ventilator 03/06/20 08:00 99 03/06/20 07:59 98.2 102 16 102/75 (84) 96 03/06/20 07:17 103 17 30 03/06/20 04:00 Mechanical Ventilator 03/06/20 04:00 98.7 99 20 125/73 (90) 100 03/06/20 04:00 30 03/06/20 03:53 99 03/06/20 02:50 96 16 30 03/06/20 01:05 97 16 30 03/06/20 00:00 98.9 97 20 105/67 (80) 100 03/06/20 00:00 Mechanical Ventilator 03/05/20 23:30 101 Intake and Output 03/05/20 03/06/20 19:00 07:00 Intake Total 1260 ml 910 ml Output Total 600 ml Balance 1260 ml 310 ml Free Water 200 ml 150 ml IV Total 400 ml 400 ml Tube Feeding 660 ml 360 ml Output Urine Total 600 ml Height (Feet): 5 Height (Inches): 5.00 Weight (Pounds): 147 Objective WDWN AA woman NCAT, (+) Trach Coarse BS RR abd soft NT ND, (+) GT (++) edema Lilly Au MD Mar 06, 2020 23:07
[2020-03-07] VITALS (11 sets, daily range): BP systolic 82–139; BP diastolic 51–76
[2020-03-07] MEDS: Metoclopramide 10mg/2ml Inj IVP SCH ×4 (01:04→20:23)
--- NOTE | 2020-03-07 01:35 | Cardiology Report ---
APPROVED REPORT EKG Measurement Heart [id number] <Conclusion> Normal sinus rhythm Right axis deviation Right ventricular hypertrophy ST & T wave abnormality, consider inferior ischemia ST & T wave abnormality, consider anterolateral ischemia Abnormal ECG
--- NOTE | 2020-03-07 01:59 | Cardiology Report ---
APPROVED REPORT EXAM: Two-dimensional and M-mode echocardiogram with Doppler and color Doppler. INDICATION Acute myocardial infarction M-Mode DIMENSIONS IVSd0.9 (0.7-1.1cm)Left Atrium (MM)2.1 (1.6-4.0cm) LVDd3.2 (3.5-5.6cm)Aortic Root2.9 (2.0-3.7cm) PWd0.9 (0.7-1.1cm)Aortic Cusp Exc.1.6 (1.5-2.0cm) IVSs1.0 cmEPSS0.3 (>1.0cm) LVDs1.8 (2.5-4.0cm) PWs1.0 cm <Conclusion> Technically difficult study due to poor acoustic windows. Study quality precludes accurate assessment of regional wall motion to extent visualized. Normal left ventricular chamber size, systolic function and wall motion. Left ventricular ejection fraction estimated to be 65 %. Diastolic septal flattening suggestive of RV overload. Mild left ventricular hypertrophy. Small pericardial effusion at RV free wall. Left atrial chamber size is within normal limits. Right cardiac chamber sizes are moderately enlarged. Right ventricular hypokinesis noted. Focal aortic valve sclerosis with adequate cusp excursion. Thickened mitral valve leaflets with normal excursion. Mitral annulus and aortic root calcification. Pulmonic valve not well visualized. Normal tricuspid valve structure. IVC is normal in size with slight physiological collapse. A color flow and spectral Doppler study was performed and revealed: No aortic regurgitation. Trace mitral regurgitation. Mitral diastolic velocities suggest mild left ventricular diastolic dysfunction (Grade I). Moderate to severe tricuspid regurgitation. Tricuspid systolic velocities suggests peak right ventricular systolic pressure of 99 mmHg, consistent with severe pulmonary hypertension.
[2020-03-07] MEDS: Revatio 20mg tab ORAL SCH ×3 (05:06→21:29)
[2020-03-07] MEDS: Lacri-Lube Opth Oint 3.5gm BOTH EYES SCH ×3 (05:06→21:29)
[2020-03-07] MEDS: levETIRAcetam 1,000mg/NS100ml 100 ML IVPB SCH ×2 (09:02→20:22)
[2020-03-07] MEDS: carBAMazepine 200mg tab NG SCH ×3 (09:03→17:08)
[2020-03-07] MEDS: Eliquis 5mg tablet ORAL SCH ×2 (09:03→17:08)
[2020-03-07] MEDS: SELEXIPAG ORAL SCH ×2 (09:05→20:27)
[2020-03-07] MEDS: OPSUMIT 10 MG ORAL SCH (09:05)
--- NOTE | 2020-03-07 09:21 | General Progress Note ---
Assessment/Plan Problem List: (1) Seizure disorder ICD Codes: G40.909 - Epilepsy, unspecified, not intractable,without status epilepticus SNOMED: 754491463 (2) Pulmonary hypertension ICD Codes: I27.20 - Pulmonary hypertension, unspecified SNOMED: 25831486 (3) Respiratory failure ICD Codes: J96.90 - Respiratory failure, unspecified, unspecified whether with hypoxia or hypercapnia SNOMED: 306312445 Qualifiers: Qualified Codes: J96.01 - Acute respiratory failure with hypoxia (4) Severe sepsis ICD Codes: A41.9 - Sepsis, unspecified organism; R65.20 - Severe sepsis without septic shock SNOMED: 96782195 (5) NSTEMI (non-ST elevated myocardial infarction) ICD Codes: I21.4 - Non-ST elevation (NSTEMI) myocardial infarction SNOMED: 18104620 (6) Fever ICD Codes: R50.9 - Fever, unspecified SNOMED: 839322548 (7) Dyspnea ICD Codes: R06.00 - Dyspnea, unspecified SNOMED: 109824880 Status: stable, not improved Assessment/Plan: cont vent support resp care/suctioning trach care sz rx monitor for szs/sz precautions gt feeds- monitor residuals try more concentrated feeding reglan q6 dvt/stress ulcer prophylaxis turn q2 resume eliquis lasix x 1 dc planning Subjective ROS Limited/Unobtainable: No Constitutional: Reports: malaise, weakness HEENT: Reports: no symptoms Cardiovascular: Reports: edema Respiratory: Reports: shortness of breath Gastrointestinal/Abdominal: Reports: difficulty swallowing Genitourinary: Reports: no symptoms Neurologic/Psychiatric: Reports: pre-existing deficit, seizure Endocrine: Reports: no symptoms Hematologic/Lymphatic: Reports: anemia Allergies: Coded Allergies: PENICILLINS (Verified Allergy, Severe, 08/07/12) FISH CONTAINING PRODUCTS (Verified Allergy, Unknown, 06/02/18) Uncoded Allergies: seafood (Allergy, Unknown, 06/02/18) All Systems: reviewed and negative except above Subjective No overnight events. Tolerating feedings. Less congested. Awake. Tracks but does not follow commands. Discussed with family. Concerned about generalized edema. No reports of seizures. No fevers or chills. Objective Last 24 Hour Vital Signs Date Time Temp Pulse Resp B/P (MAP) Pulse Ox O2 Delivery O2 Flow Rate FiO2 03/07/20 09:03 90 108/54 03/07/20 07:54 97.7 90 14 108/54 (72) 98 03/07/20 04:00 Mechanical Ventilator 03/07/20 04:00 96.5 86 14 105/66 (79) 100 03/07/20 04:00 93 03/07/20 04:00 30 03/07/20 02:50 88 20 30 03/07/20 00:07 98.4 78 15 95/73 (80) 100 03/07/20 00:00 Mechanical Ventilator 03/07/20 00:00 84 03/07/20 00:00 30 03/06/20 23:00 97 20 30 03/06/20 21:00 30 03/06/20 20:22 87 106/76 03/06/20 20:00 Mechanical Ventilator 03/06/20 20:00 86 03/06/20 20:00 97.8 87 14 106/76 (86) 100 03/06/20 18:46 94 20 30 03/06/20 16:00 Mechanical Ventilator 03/06/20 16:00 30 03/06/20 16:00 98.1 90 13 94/67 (76) 100 03/06/20 15:59 83 03/06/20 15:18 85 13 30 03/06/20 12:02 Mechanical Ventilator 03/06/20 12:00 98.4 92 14 106/68 (81) 100 03/06/20 12:00 30 03/06/20 12:00 106 03/06/20 10:45 100 16 30 Intake and Output 03/06/20 03/07/20 19:00 07:00 Intake Total 500 ml 520 ml Output Total 250 ml 360 ml Balance 250 ml 160 ml Free Water 200 ml 50 ml IV Total 100 ml Tube Feeding 300 ml 370 ml Output Urine Total 250 ml 360 ml Height (Feet): 5 Height (Inches): 5.00 Weight (Pounds): 147 Objective General Appearance: WD/WN, confused EENT: PERRL/EOMI, normal ENT inspection Neck: non-tender, normal alignment. trach c/d/i Cardiovascular: normal peripheral pulses, normal rate Respiratory/Chest: chest wall non-tender, lungs clear, normal breath sounds Abdomen: normal bowel sounds, non tender Edema: no edema noted Arm (L), no edema noted Arm (R) Neurologic: disoriented, unresponsive Skin: normal pigmentation Lymphatic: normal anterior cervical (L), normal anterior cervical (R) Liborio Dugan MD Mar 07, 2020 09:21
--- NOTE | 2020-03-07 14:58 | Surgery Progress Note ---
Surgery Progress Note Subjective Procedure Performed tracheostomy Symptoms: improved, tolerating diet, voiding well, passing flatus, BM Objective Last 24 Hour Vital Signs Date Time Temp Pulse Resp B/P (MAP) Pulse Ox O2 Delivery O2 Flow Rate FiO2 03/07/20 13:21 84 115/76 (89) 03/07/20 12:12 84 90/55 (67) 03/07/20 12:00 87 82/51 (61) 03/07/20 12:00 30 03/07/20 12:00 Mechanical Ventilator 03/07/20 11:45 89 82/56 (65) 03/07/20 11:32 86 03/07/20 11:30 82 88/56 (67) 03/07/20 11:05 84 21 30 03/07/20 10:12 87 108/59 (75) 03/07/20 09:03 90 108/54 03/07/20 08:00 88 03/07/20 08:00 30 03/07/20 08:00 Mechanical Ventilator 03/07/20 07:54 97.7 90 14 108/54 (72) 98 03/07/20 07:35 61 19 30 03/07/20 04:00 Mechanical Ventilator 03/07/20 04:00 96.5 86 14 105/66 (79) 100 03/07/20 04:00 93 03/07/20 04:00 30 03/07/20 02:50 88 20 30 03/07/20 00:07 98.4 78 15 95/73 (80) 100 03/07/20 00:00 Mechanical Ventilator 03/07/20 00:00 84 03/07/20 00:00 30 03/06/20 23:00 97 20 30 03/06/20 21:00 30 03/06/20 20:22 87 106/76 03/06/20 20:00 Mechanical Ventilator 03/06/20 20:00 86 03/06/20 20:00 97.8 87 14 106/76 (86) 100 03/06/20 18:46 94 20 30 03/06/20 16:00 Mechanical Ventilator 03/06/20 16:00 30 03/06/20 16:00 98.1 90 13 94/67 (76) 100 03/06/20 15:59 83 03/06/20 15:18 85 13 30 I&O Intake and Output 03/06/20 03/07/20 19:00 07:00 Intake Total 500 ml 520 ml Output Total 250 ml 360 ml Balance 250 ml 160 ml Free Water 200 ml 50 ml IV Total 100 ml Tube Feeding 300 ml 370 ml Output Urine Total 250 ml 360 ml Dressing: dry Cardiovascular: RSR Respiratory: decreased breath sounds Abdomen: soft, non-tender, present bowel sounds Extremities: no edema, no tenderness, no cyanosis Plan Problems: (1) Respiratory failure Assessment & Plan: Respiratory insufficiency requiring prolonged ventilatory support currently remains on vent support unable to wean safely. Patient with altered level consciousness this time not responsive. Patient is a candidate for a tracheostomy. Pulmonology discussed with the family and they have agreed to proceed. Will optimize and plan for surgical intervention soon. Tracheostomy indicated and recommended. Thank you allowing me to participate in patient's care will follow with recommendations s/p trach improving labs noted prudence chance weaning vent peg sub acute eval for placement improving more alert and responsive downgraded comfortable thick secretions volume of secretions lots cont suctioning vent support Bassam Kinney Mar 07, 2020 14:58
--- NOTE | 2020-03-07 15:30 | Procedure Note ---
DATE OF PROCEDURE: 03/01/2020 GASTROENTEROLOGY PROCEDURE REPORT PROCEDURE: Upper gastrointestinal endoscopy with biopsy as well as gastrostomy tube placement. SURGEON: Lilly Au MD. ANESTHESIA: Please see the separate anesthesiologist notes for details. PRE-ENDOSCOPIC DIAGNOSIS: Dysphagia. POST-ENDOSCOPIC DIAGNOSES: 1. Gastritis. 2. Status post gastrostomy tube placement. DESCRIPTION OF PROCEDURE: The procedure, its risks, indications, alternatives, and possible complications were explained to the patient's durable [id number] and informed consent was obtained. The patient was then sedated in the supine position and a diagnostic upper endoscope was introduced through the oropharynx and advanced to the duodenum without difficulty. The endoscope was then gradually withdrawn and mucosa examined carefully. Examination of the upper gastrointestinal mucosa revealed mild gastritis. Biopsies of the pathology for review. The location for placement of the gastrostomy tube was then identified by palpation and transillumination techniques. The outside skin was sterilely anesthetized and incised. Needle was used to place the gastrostomy tube using standard pull technique. Position was verified endoscopically. The endoscope was removed. The patient was sent to recovery in good condition. COMPLICATIONS: None. RECOMMENDATIONS: 1. Observe overnight. 2. Begin tube feedings tomorrow. 3. Followup biopsy results. Lilly Au M.D. DR: Keisha JOB#: [id number] CC:
--- NOTE | 2020-03-07 17:36 | Critical Care Progress Note ---
Assessment/Plan Assessment/Plan respiratory failure s/p trach pneumonia pulmonary hypertension elevated troponin possible NSTEMI paraplegia hypoxemia seizure history brain masses, chronic moderate PCM s/pGT pleural effusion PLAN trach care noted GT care ID noted respiratory care and nursing care noted Ventilatory support mental status remains poor and not improved monitor acid base and adjust supportive care suction as needed monitor heart rate seizure meds- as is oxygen therapy prognosis same nutrition off load and monitor skin dc to snf today medications/laboratory data/nursing notes reviewed in detail note reviewed and edited care discussed with RN and RT Critical Care - Subjective Interval Events: dc plan noted family aware no distress care reviewed ROS Limited/Unobtainable: Yes Condition: critical EKG Rhythm: Sinus Rhythm Residuals: minimal Tube Feeding Tolerated: yes I&O: Intake and Output 03/06/20 03/07/20 19:00 07:00 Intake Total 500 ml 520 ml Output Total 250 ml 360 ml Balance 250 ml 160 ml Free Water 200 ml 50 ml IV Total 100 ml Tube Feeding 300 ml 370 ml Output Urine Total 250 ml 360 ml Critical Care - Objective ET-Tube: 7.0 ET Position: 25 Last 24 Hour Vital Signs Date Time Temp Pulse Resp B/P (MAP) Pulse Ox O2 Delivery O2 Flow Rate FiO2 03/07/20 16:00 84 03/07/20 16:00 30 03/07/20 16:00 Mechanical Ventilator 03/07/20 16:00 97.2 89 15 108/71 (83) 98 03/07/20 15:05 85 17 30 03/07/20 13:21 84 115/76 (89) 03/07/20 12:12 84 90/55 (67) 03/07/20 12:00 87 82/51 (61) 03/07/20 12:00 30 03/07/20 12:00 Mechanical Ventilator 03/07/20 11:45 89 82/56 (65) 03/07/20 11:32 86 03/07/20 11:30 82 88/56 (67) 03/07/20 11:05 84 21 30 03/07/20 10:12 87 108/59 (75) 03/07/20 09:03 90 108/54 03/07/20 08:00 88 03/07/20 08:00 30 03/07/20 08:00 Mechanical Ventilator 03/07/20 07:54 97.7 90 14 108/54 (72) 98 03/07/20 07:35 61 19 30 03/07/20 04:00 Mechanical Ventilator 03/07/20 04:00 96.5 86 14 105/66 (79) 100 03/07/20 04:00 93 03/07/20 04:00 30 03/07/20 02:50 88 20 30 03/07/20 00:07 98.4 78 15 95/73 (80) 100 03/07/20 00:00 Mechanical Ventilator 03/07/20 00:00 84 03/07/20 00:00 30 03/06/20 23:00 97 20 30 03/06/20 21:00 30 03/06/20 20:22 87 106/76 03/06/20 20:00 Mechanical Ventilator 03/06/20 20:00 86 03/06/20 20:00 97.8 87 14 106/76 (86) 100 03/06/20 18:46 94 20 30 Labs: Labs Test 03/05/20 03:51 White Blood Count 7.2 K/UL (4.8-10.8) Red Blood Count 3.41 M/UL (4.20-5.40) Hemoglobin 10.4 G/DL (12.0-16.0) Hematocrit 33.3 % (37.0-47.0) Mean Corpuscular Volume 98 FL (80-99) Mean Corpuscular Hemoglobin 30.4 PG (27.0-31.0) Mean Corpuscular Hemoglobin Concent 31.1 G/DL (32.0-36.0) Red Cell Distribution Width 16.7 % (11.6-14.8) Platelet Count 189 K/UL (150-450) Mean Platelet Volume 7.9 FL (6.5-10.1) Neutrophils (%) (Auto) 76.8 % (45.0-75.0) Lymphocytes (%) (Auto) 11.9 % (20.0-45.0) Monocytes (%) (Auto) 10.0 % (1.0-10.0) Eosinophils (%) (Auto) 0.3 % (0.0-3.0) Basophils (%) (Auto) 0.9 % (0.0-2.0) Sodium Level 138 MMOL/L (136-145) Potassium Level 4.8 MMOL/L (3.5-5.1) Chloride Level 108 MMOL/L (98-107) Carbon Dioxide Level 23 MMOL/L (21-32) Anion Gap 7 mmol/L (5-15) Blood Urea Nitrogen 26 mg/dL (7-18) Creatinine 0.8 MG/DL (0.55-1.30) Estimat Glomerular Filtration Rate > 60 mL/min (>60) Glucose Level 128 MG/DL (74-106) Calcium Level 8.2 MG/DL (8.5-10.1) Total Bilirubin 0.4 MG/DL (0.2-1.0) Aspartate Amino Transf (AST/SGOT) 25 U/L (15-37) Alanine Aminotransferase (ALT/SGPT) 42 U/L (12-78) Alkaline Phosphatase 155 U/L (46-116) Total Protein 6.2 G/DL (6.4-8.2) Albumin 1.7 G/DL (3.4-5.0) Globulin 4.5 g/dL Albumin/Globulin Ratio 0.4 (1.0-2.7) Objective: WDWN NAD on vent, trach in place reduced breath sounds bilaterally without rhonchi or wheeze [id number] without MRG NABS nontender GT no CCE nonfocal poor LOC reduced ROM skin noted reviewed and edited Juan Snow MD Mar 07, 2020 17:36
[2020-03-07] MEDS: Dyna-Hex 2% Top Sol 2oz TOPIC SCH (20:23)
[2020-03-07] MEDS ORDERED: Clotrimazole 1% Vaginal Cr 45gm VAGIN SCH (21:00)
--- NOTE | 2020-03-07 23:22 | General Progress Note ---
Assessment/Plan Status: stable, not improved Assessment/Plan: Assessment - Resp failure - s/p PEG - Shock - s/p NC - anasarca - Anemia - abnormal LFT - improving Recommendations - Continue TF today - Amee OK - Vent - Supportive care - f/u hepatitis serologies --> negative - f/u Abd U/S ---> negative Subjective Allergies: Coded Allergies: PENICILLINS (Verified Allergy, Severe, 08/07/12) FISH CONTAINING PRODUCTS (Verified Allergy, Unknown, 06/02/18) Uncoded Allergies: seafood (Allergy, Unknown, 06/02/18) Subjective Above noted NAD s/p PEG TF changed to improve tolerability to pt Objective Last 24 Hour Vital Signs Date Time Temp Pulse Resp B/P (MAP) Pulse Ox O2 Delivery O2 Flow Rate FiO2 03/07/20 23:07 70 13 30 03/07/20 20:27 83 139/59 03/07/20 20:00 30 03/07/20 20:00 Mechanical Ventilator 03/07/20 20:00 97.7 83 15 139/59 (85) 98 03/07/20 19:10 78 13 30 03/07/20 19:03 79 03/07/20 16:00 84 03/07/20 16:00 30 03/07/20 16:00 Mechanical Ventilator 03/07/20 16:00 97.2 89 15 108/71 (83) 98 03/07/20 15:05 85 17 30 03/07/20 13:21 84 115/76 (89) 03/07/20 12:12 84 90/55 (67) 03/07/20 12:00 87 82/51 (61) 03/07/20 12:00 30 03/07/20 12:00 Mechanical Ventilator 03/07/20 11:45 89 82/56 (65) 03/07/20 11:32 86 03/07/20 11:30 82 88/56 (67) 03/07/20 11:05 84 21 30 03/07/20 10:12 87 108/59 (75) 03/07/20 09:03 90 108/54 03/07/20 08:00 88 03/07/20 08:00 30 03/07/20 08:00 Mechanical Ventilator 03/07/20 07:54 97.7 90 14 108/54 (72) 98 03/07/20 07:35 61 19 30 03/07/20 04:00 Mechanical Ventilator 03/07/20 04:00 96.5 86 14 105/66 (79) 100 03/07/20 04:00 93 03/07/20 04:00 30 03/07/20 02:50 88 20 30 03/07/20 00:07 98.4 78 15 95/73 (80) 100 03/07/20 00:00 Mechanical Ventilator 03/07/20 00:00 84 03/07/20 00:00 30 Intake and Output 03/06/20 03/07/20 19:00 07:00 Intake Total 500 ml 520 ml Output Total 250 ml 360 ml Balance 250 ml 160 ml Free Water 200 ml 50 ml IV Total 100 ml Tube Feeding 300 ml 370 ml Output Urine Total 250 ml 360 ml Height (Feet): 5 Height (Inches): 5.00 Weight (Pounds): 147 Objective WDWN AA woman NCAT, (+) Trach Coarse BS RR abd soft NT ND, (+) GT (++) edema Lilly Au MD Mar 07, 2020 23:22
--- NOTE | 2020-03-07 23:32 | Cardiology Progress Note ---
Subjective DATE OF SERVICE: Mar 07, 2020 On vent support - s/p uncomplicated trach 02/27/20. Feeding tube placed without complication, but continues to have residual feedings. BP range remains low range; in fact worse this afternoon t0 SBP 84. Per neuro, no seizure activity noted, but remains unresponsive Monitor: sinus tachycardia and sinus rhythm Objective Last 24 Hour Vital Signs Date Time Temp Pulse Resp B/P (MAP) Pulse Ox O2 Delivery O2 Flow Rate FiO2 03/07/20 23:07 70 13 30 03/07/20 20:27 83 139/59 03/07/20 20:00 30 03/07/20 20:00 Mechanical Ventilator 03/07/20 20:00 97.7 83 15 139/59 (85) 98 03/07/20 19:10 78 13 30 03/07/20 19:03 79 03/07/20 16:00 84 03/07/20 16:00 30 03/07/20 16:00 Mechanical Ventilator 03/07/20 16:00 97.2 89 15 108/71 (83) 98 03/07/20 15:05 85 17 30 03/07/20 13:21 84 115/76 (89) 03/07/20 12:12 84 90/55 (67) 03/07/20 12:00 87 82/51 (61) 03/07/20 12:00 30 03/07/20 12:00 Mechanical Ventilator 03/07/20 11:45 89 82/56 (65) 03/07/20 11:32 86 03/07/20 11:30 82 88/56 (67) 03/07/20 11:05 84 21 30 03/07/20 10:12 87 108/59 (75) 03/07/20 09:03 90 108/54 03/07/20 08:00 88 03/07/20 08:00 30 03/07/20 08:00 Mechanical Ventilator 03/07/20 07:54 97.7 90 14 108/54 (72) 98 03/07/20 07:35 61 19 30 03/07/20 04:00 Mechanical Ventilator 03/07/20 04:00 96.5 86 14 105/66 (79) 100 03/07/20 04:00 93 03/07/20 04:00 30 03/07/20 02:50 88 20 30 03/07/20 00:07 98.4 78 15 95/73 (80) 100 03/07/20 00:00 Mechanical Ventilator 03/07/20 00:00 84 03/07/20 00:00 30 ROS: no change from my evaluation on 02/14/20 HEENT: Thin Trach secretions RHYTHM: ST LUNGS: bilateral rhonchi, trach site clean CARDIAC: normal rate, regular rhythm, normal S1 and S2 ABDOMEN: normal bowel sounds, non tender, soft EXTREMITIES: non-tender, trace edema, other - PICC line Assessment/Plan Assessment/Plan Hypotension - possibly due to hypovolemia or recurrent sepsis Respiratory Failure - s/p trach UTI Sepsis with recovered shock Acute myocardial infarction (NSTE) Neurofibromatosis with edema Hypokalemia Hypomagnesemia Hypovolemia Pulmonary Hypertension Aspiration PNA Seizure Disorder Pleural effusions Encephalopathy Hypernatremia Gastroparesis - s/p GTube placement Vent support Anti-sz meds Steroids discont'd anti-plt rx and anticoagulation resumed Beta blockade with hold parameter for low BP. Antimicrobials and resp rx Nutritional suppl hypotonic IVF while NPO; fluid boluses for low BP. Replace electrolytes Pro-motility agents DC planned to [facility] Marcus Main MD Mar 07, 2020 23:32
[2020-03-08] VITALS: BP 117/63
[2020-03-08] MEDS: Metoclopramide 10mg/2ml Inj IVP SCH ×2 (02:00→07:23)
[2020-03-08 04:00] VITALS: BP 146/77
[2020-03-08 04:15] LABS: ANION GAP 5 mmol/L (5-15); BLOOD UREA NITROGEN 27 mg/dL (7-18); CARBON DIOXIDE 26 MMOL/L (21-32); CHLORIDE 107 MMOL/L (98-107); CREATININE 0.7 MG/DL (0.55-1.30); POTASSIUM 4.6 MMOL/L (3.5-5.1); SODIUM 138 MMOL/L (136-145)
[2020-03-08] MEDS: Lacri-Lube Opth Oint 3.5gm BOTH EYES SCH (05:07)
[2020-03-08] MEDS: Revatio 20mg tab ORAL SCH (05:07)
--- NOTE | 2020-03-08 07:51 | Critical Care Progress Note ---
Assessment/Plan Assessment/Plan respiratory failure s/p trach pneumonia pulmonary hypertension elevated troponin possible NSTEMI paraplegia hypoxemia seizure history brain masses, chronic moderate PCM s/pGT pleural effusion PLAN trach care noted GT care ID noted respiratory care and nursing care noted Ventilatory support mental status remains poor and not improved monitor acid base and adjust supportive care suction as needed monitor heart rate seizure meds- as is oxygen therapy prognosis same nutrition off load and monitor skin dc to snf today medications/laboratory data/nursing notes reviewed in detail note reviewed and edited care discussed with RN and RT Critical Care - Subjective ROS Limited/Unobtainable: Yes Condition: unchanged EKG Rhythm: Sinus Rhythm Residuals: minimal Tube Feeding Tolerated: yes I&O: Intake and Output 03/07/20 03/08/20 19:00 07:00 Intake Total 740 ml 810 ml Output Total 950 ml 400 ml Balance -210 ml 410 ml Free Water 300 ml 230 ml IV Total 100 ml Tube Feeding 440 ml 480 ml Output Urine Total 950 ml 400 ml # Bowel Movements 1 Critical Care - Objective ET-Tube: 7.0 ET Position: 25 Last 24 Hour Vital Signs Date Time Temp Pulse Resp B/P (MAP) Pulse Ox O2 Delivery O2 Flow Rate FiO2 03/08/20 04:00 Mechanical Ventilator 03/08/20 04:00 97.0 83 15 146/77 (100) 98 03/08/20 04:00 30 03/08/20 03:42 84 03/08/20 03:30 87 18 30 03/08/20 00:00 71 03/08/20 00:00 Mechanical Ventilator 03/08/20 00:00 97.7 71 15 117/63 (81) 98 03/07/20 23:07 70 13 30 03/07/20 20:27 83 139/59 03/07/20 20:00 30 03/07/20 20:00 Mechanical Ventilator 03/07/20 20:00 97.7 83 15 139/59 (85) 98 03/07/20 19:10 78 13 30 03/07/20 19:03 79 03/07/20 16:00 84 03/07/20 16:00 30 03/07/20 16:00 Mechanical Ventilator 03/07/20 16:00 97.2 89 15 108/71 (83) 98 03/07/20 15:05 85 17 30 03/07/20 13:21 84 115/76 (89) 03/07/20 12:12 84 90/55 (67) 03/07/20 12:00 87 82/51 (61) 03/07/20 12:00 30 03/07/20 12:00 Mechanical Ventilator 03/07/20 11:45 89 82/56 (65) 03/07/20 11:32 86 03/07/20 11:30 82 88/56 (67) 03/07/20 11:05 84 21 30 03/07/20 10:12 87 108/59 (75) 03/07/20 09:03 90 108/54 03/07/20 08:00 88 03/07/20 08:00 30 03/07/20 08:00 Mechanical Ventilator 03/07/20 07:54 97.7 90 14 108/54 (72) 98 Objective: WDWN NAD on vent, trach in place reduced breath sounds bilaterally without rhonchi or wheeze [id number] without MRG NABS nontender GT no CC some edema nonfocal poor LOC reduced ROM skin noted reviewed and edited Juan Snow MD Mar 08, 2020 07:51
[2020-03-08 08:00] VITALS: BP 100/70
[2020-03-08] MEDS: carBAMazepine 200mg tab NG SCH ×2 (08:04→12:10)
[2020-03-08] MEDS: levETIRAcetam 1,000mg/NS100ml 100 ML IVPB SCH (09:10)
[2020-03-08] MEDS: Eliquis 5mg tablet ORAL SCH (09:10)
[2020-03-08] MEDS: SELEXIPAG ORAL SCH (09:28)
[2020-03-08] MEDS: OPSUMIT 10 MG ORAL SCH (09:28)
--- NOTE | 2020-03-08 10:26 | Surgery Progress Note ---
Surgery Progress Note Subjective Procedure Performed tracheostomy Symptoms: improved, tolerating diet, passing flatus, BM Objective Last 24 Hour Vital Signs Date Time Temp Pulse Resp B/P (MAP) Pulse Ox O2 Delivery O2 Flow Rate FiO2 03/08/20 08:54 88 100/70 03/08/20 08:00 30 03/08/20 08:00 Mechanical Ventilator 03/08/20 08:00 98.1 88 15 100/70 (80) 98 03/08/20 07:42 85 03/08/20 07:25 85 18 30 03/08/20 04:00 Mechanical Ventilator 03/08/20 04:00 97.0 83 15 146/77 (100) 98 03/08/20 04:00 30 03/08/20 03:42 84 03/08/20 03:30 87 18 30 03/08/20 00:00 71 03/08/20 00:00 Mechanical Ventilator 03/08/20 00:00 97.7 71 15 117/63 (81) 98 03/07/20 23:07 70 13 30 03/07/20 20:27 83 139/59 03/07/20 20:00 30 03/07/20 20:00 Mechanical Ventilator 03/07/20 20:00 97.7 83 15 139/59 (85) 98 03/07/20 19:10 78 13 30 03/07/20 19:03 79 03/07/20 16:00 84 03/07/20 16:00 30 03/07/20 16:00 Mechanical Ventilator 03/07/20 16:00 97.2 89 15 108/71 (83) 98 03/07/20 15:05 85 17 30 03/07/20 13:21 84 115/76 (89) 03/07/20 12:12 84 90/55 (67) 03/07/20 12:00 87 82/51 (61) 03/07/20 12:00 30 03/07/20 12:00 Mechanical Ventilator 03/07/20 11:45 89 82/56 (65) 03/07/20 11:32 86 03/07/20 11:30 82 88/56 (67) 03/07/20 11:05 84 21 30 I&O Intake and Output 03/07/20 03/08/20 19:00 07:00 Intake Total 740 ml 810 ml Output Total 950 ml 400 ml Balance -210 ml 410 ml Free Water 300 ml 230 ml IV Total 100 ml Tube Feeding 440 ml 480 ml Output Urine Total 950 ml 400 ml # Bowel Movements 1 Dressing: dry Wound: clean Cardiovascular: RSR Respiratory: decreased breath sounds Abdomen: soft, non-tender, present bowel sounds Extremities: no edema, no tenderness, no cyanosis Laboratory Tests Test 03/08/20 03:30 Sodium Level 138 MMOL/L (136-145) Potassium Level 4.6 MMOL/L (3.5-5.1) Chloride Level 107 MMOL/L (98-107) Carbon Dioxide Level 26 MMOL/L (21-32) Anion Gap 5 mmol/L (5-15) Blood Urea Nitrogen 27 mg/dL (7-18) H Creatinine 0.7 MG/DL (0.55-1.30) Estimat Glomerular Filtration Rate > 60 mL/min (>60) Glucose Level 113 MG/DL (74-106) H Calcium Level 8.0 MG/DL (8.5-10.1) L Magnesium Level 1.8 MG/DL (1.8-2.4) Plan Problems: (1) Respiratory failure Assessment & Plan: Respiratory insufficiency requiring prolonged ventilatory support currently remains on vent support unable to wean safely. Patient with altered level consciousness this time not responsive. Patient is a candidate for a tracheostomy. Pulmonology discussed with the family and they have agreed to proceed. Will optimize and plan for surgical intervention soon. Tracheostomy indicated and recommended. Thank you allowing me to participate in patient's care will follow with recommendations s/p trach improving labs noted prudence chance weaning vent peg sub acute eval for placement improving more alert and responsive downgraded comfortable thick secretions volume of secretions lots cont suctioning vent support prudence chance d/c planning Bassam Hui Mar 08, 2020 10:26
--- NOTE | 2020-03-08 11:36 | Infectious Diseases Prog Note ---
Assessment/Plan Assessment/Plan A 1. Acinetobacter pneumonia treated COVID19 X2: negative 2. Hypoxic respiratory failure 3. neurofibromatosis 4. seizures 5. pulmonary hypertension 6. Sepsis 7. Non ST elevation PA 8. Coma 9. Deaf & blind P 1. Observe off antibiotic 2. agree with discharge Subjective ROS Limited/Unobtainable: Yes Constitutional: Denies: fever Allergies: Coded Allergies: PENICILLINS (Verified Allergy, Severe, 08/07/12) FISH CONTAINING PRODUCTS (Verified Allergy, Unknown, 06/02/18) Uncoded Allergies: seafood (Allergy, Unknown, 06/02/18) Objective Last 24 Hour Vital Signs Date Time Temp Pulse Resp B/P (MAP) Pulse Ox O2 Delivery O2 Flow Rate FiO2 03/08/20 08:54 88 100/70 03/08/20 08:00 30 03/08/20 08:00 Mechanical Ventilator 03/08/20 08:00 98.1 88 15 100/70 (80) 98 03/08/20 07:42 85 03/08/20 07:25 85 18 30 03/08/20 04:00 Mechanical Ventilator 03/08/20 04:00 97.0 83 15 146/77 (100) 98 03/08/20 04:00 30 03/08/20 03:42 84 03/08/20 03:30 87 18 30 03/08/20 00:00 71 03/08/20 00:00 Mechanical Ventilator 03/08/20 00:00 97.7 71 15 117/63 (81) 98 03/07/20 23:07 70 13 30 03/07/20 20:27 83 139/59 03/07/20 20:00 30 03/07/20 20:00 Mechanical Ventilator 03/07/20 20:00 97.7 83 15 139/59 (85) 98 03/07/20 19:10 78 13 30 03/07/20 19:03 79 03/07/20 16:00 84 03/07/20 16:00 30 03/07/20 16:00 Mechanical Ventilator 03/07/20 16:00 97.2 89 15 108/71 (83) 98 03/07/20 15:05 85 17 30 03/07/20 13:21 84 115/76 (89) 03/07/20 12:12 84 90/55 (67) 9/9/20 12:00 87 82/51 (61) 03/07/20 12:00 30 03/07/20 12:00 Mechanical Ventilator 03/07/20 11:45 89 82/56 (65) Height (Feet): 5 Height (Inches): 5.00 Weight (Pounds): 147 HEENT: status post trach Respiratory/Chest: lungs clear, other - on ventilator Cardiovascular: normal rate Abdomen: soft, non tender, other - GT feeding Extremities: other - hands edema Neurologic/Psychiatric: unresponsiveness Laboratory Tests Test 03/08/20 03:30 Sodium Level 138 MMOL/L (136-145) Potassium Level 4.6 MMOL/L (3.5-5.1) Chloride Level 107 MMOL/L (98-107) Carbon Dioxide Level 26 MMOL/L (21-32) Anion Gap 5 mmol/L (5-15) Blood Urea Nitrogen 27 mg/dL (7-18) H Creatinine 0.7 MG/DL (0.55-1.30) Estimat Glomerular Filtration Rate > 60 mL/min (>60) Glucose Level 113 MG/DL (74-106) H Calcium Level 8.0 MG/DL (8.5-10.1) L Magnesium Level 1.8 MG/DL (1.8-2.4) Current Medications Medications (Trade) Dose Ordered Sig/Brian Route PRN Reason Start Time Stop Time Status Last Admin Dose Admin Acetaminophen (Tylenol) 650 mg Q4H PRN NG Mild Pain (Pain Scale 1-3) 02/29/20 17:30 03/15/20 17:29 03/03/20 20:39 Acetaminophen (Tylenol) 650 mg Q4H PRN NG Temp >100.5 02/29/20 18:00 03/15/20 17:59 02/29/20 22:43 Al Hydroxide/Mg Hydroxide (Mylanta) 30 ml Q4H PRN ORAL Dyspepsia 02/29/20 18:00 03/15/20 17:59 Apixaban (Eliquis) 5 mg BID ORAL 03/03/20 18:00 06/01/20 17:59 03/08/20 09:10 Artificial Tears (Lacri-Lube) 1 applic EVERY 8 HOURS BOTH EYES 02/29/20 22:00 03/18/20 09:29 03/08/20 05:07 Atropine Sulfate (Atropine Opth Cassi) 1 drop Q8HR SL 03/06/20 09:00 06/04/20 08:59 03/08/20 05:07 Carbamazepine (TEGretol) 200 mg TID NG 03/01/20 09:00 03/31/20 08:59 03/08/20 08:04 Chlorhexidine Gluconate (Gricelda-Hex 2%) 1 applic DAILY@2000 TOPIC 02/29/20 20:00 05/26/20 19:59 03/07/20 20:23 Clotrimazole (Gyne-Lotrimin) 1 applic BEDTIME VAGIN 03/07/20 21:00 06/05/20 20:59 03/07/20 20:27 Gabapentin (Neurontin) 100 mg THREE TIMES A DAY ORAL 03/01/20 09:00 03/31/20 08:59 03/08/20 09:10 Lansoprazole (Prevacid) 30 mg DAILY NG 03/01/20 09:00 03/15/20 08:59 03/08/20 09:10 Levetiracetam (Keppra) 1,000 mg Q12HR GT 03/08/20 21:00 04/07/20 20:59 Magnesium Hydroxide (Mom) 30 ml TIDPRN PRN NG Constipation 02/29/20 18:00 03/30/20 17:59 Metoclopramide HCl (Reglan) 5 mg EVERY 6 HOURS GT 03/08/20 12:00 04/07/20 11:59 Metoclopramide HCl (Reglan) 5 mg Q6H PRN IVP Nausea & Vomiting 02/29/20 18:00 03/20/20 17:59 Metoprolol Tartrate (Lopressor) 25 mg Q12HR ORAL 03/07/20 21:00 05/15/20 20:59 03/07/20 20:27 Patient Own Medication (Patient's Own Med) 1 ea DAILY ORAL 03/01/20 09:00 03/31/20 08:59 03/08/20 09:28 Patient Own Medication (Patient's Own Med) 1 ea Q12HR ORAL 02/29/20 21:00 03/30/20 20:59 03/08/20 09:28 Sildenafil Citrate (Revatio) 20 mg Q8HR ORAL 03/01/20 06:00 05/30/20 05:59 03/08/20 05:07 Guillaume Hernandez MD Mar 08, 2020 11:36
[2020-03-08 12:00] VITALS: BP 100/72
[2020-03-08] MEDS ORDERED: Metoclopramide 10mg/10ml Liq GT SCH (12:00)
--- NOTE | 2020-03-08 20:14 | Cardiology Progress Note ---
Subjective DATE OF SERVICE: Mar 08, 2020 On vent support - s/p uncomplicated trach 02/27/20. Feeding tube placed without complication, but continues to have residual feedings. BP range remains low range; in fact worse this afternoon t0 SBP 84. Per neuro, no seizure activity noted, but remains poorly responsive Monitor: sinus rhythm Objective Last 24 Hour Vital Signs Date Time Temp Pulse Resp B/P (MAP) Pulse Ox O2 Delivery O2 Flow Rate FiO2 03/08/20 12:00 98.2 84 15 100/72 (81) 98 03/08/20 12:00 Mechanical Ventilator 03/08/20 12:00 79 03/08/20 12:00 30 03/08/20 11:05 86 16 30 03/08/20 08:54 88 100/70 03/08/20 08:00 30 03/08/20 08:00 Mechanical Ventilator 03/08/20 08:00 98.1 88 15 100/70 (80) 98 03/08/20 07:42 85 03/08/20 07:25 85 18 30 03/08/20 04:00 Mechanical Ventilator 03/08/20 04:00 97.0 83 15 146/77 (100) 98 03/08/20 04:00 30 03/08/20 03:42 84 03/08/20 03:30 87 18 30 03/08/20 00:00 71 03/08/20 00:00 Mechanical Ventilator 03/08/20 00:00 97.7 71 15 117/63 (81) 98 03/07/20 23:07 70 13 30 03/07/20 20:27 83 139/59 ROS: no change from my evaluation on 02/14/20 HEENT: Thin Trach secretions RHYTHM: ST LUNGS: bilateral rhonchi, trach site clean CARDIAC: normal rate, regular rhythm, normal S1 and S2 ABDOMEN: normal bowel sounds, non tender, soft EXTREMITIES: non-tender, trace edema, other - PICC line Laboratory Tests Test 03/08/20 03:30 Sodium Level 138 MMOL/L (136-145) Potassium Level 4.6 MMOL/L (3.5-5.1) Chloride Level 107 MMOL/L (98-107) Carbon Dioxide Level 26 MMOL/L (21-32) Anion Gap 5 mmol/L (5-15) Blood Urea Nitrogen 27 mg/dL (7-18) H Creatinine 0.7 MG/DL (0.55-1.30) Estimat Glomerular Filtration Rate > 60 mL/min (>60) Glucose Level 113 MG/DL (74-106) H Calcium Level 8.0 MG/DL (8.5-10.1) L Magnesium Level 1.8 MG/DL (1.8-2.4) Assessment/Plan Assessment/Plan Hypotension - possibly due to hypovolemia or recurrent sepsis Respiratory Failure - s/p trach UTI Sepsis with recovered shock Acute myocardial infarction (NSTE) Neurofibromatosis with edema Hypokalemia Hypomagnesemia Hypovolemia Pulmonary Hypertension Aspiration PNA Seizure Disorder Pleural effusions Encephalopathy Hypernatremia Gastroparesis - s/p GTube placement Vent support Anti-sz meds Steroids discont'd anti-plt rx and anticoagulation resumed Beta blockade with hold parameter for low BP. Antimicrobials and resp rx Nutritional suppl hypotonic IVF while NPO; fluid boluses for low BP. Replace electrolytes Pro-motility agents DC plan to Subacute facility today. Marcus Main MD Mar 08, 2020 20:14
[2020-03-08] MEDS ORDERED: levETIRAcetam 500mg/5ml Liquid GT SCH (21:00)
--- NOTE | 2020-03-08 23:20 | General Progress Note ---
Assessment/Plan Status: stable, not improved Assessment/Plan: Assessment - Resp failure - s/p PEG - Shock - s/p [place] - anasarca - Anemia - abnormal LFT - improving Recommendations - Continue TF today - Eliquis OK - Vent - Supportive care - f/u hepatitis serologies --> negative - f/u Abd U/S ---> negative Subjective Allergies: Coded Allergies: PENICILLINS (Verified Allergy, Severe, 08/07/12) FISH CONTAINING PRODUCTS (Verified Allergy, Unknown, 06/02/18) Uncoded Allergies: seafood (Allergy, Unknown, 06/02/18) Subjective Above noted NAD s/p PEG TF changed - tolerating Objective Last 24 Hour Vital Signs Date Time Temp Pulse Resp B/P (MAP) Pulse Ox O2 Delivery O2 Flow Rate FiO2 03/08/20 12:00 98.2 84 15 100/72 (81) 98 03/08/20 12:00 Mechanical Ventilator 03/08/20 12:00 79 03/08/20 12:00 30 03/08/20 11:05 86 16 30 03/08/20 08:54 88 100/70 03/08/20 08:00 30 03/08/20 08:00 Mechanical Ventilator 03/08/20 08:00 98.1 88 15 100/70 (80) 98 03/08/20 07:42 85 03/08/20 07:25 85 18 30 03/08/20 04:00 Mechanical Ventilator 03/08/20 04:00 97.0 83 15 146/77 (100) 98 03/08/20 04:00 30 03/08/20 03:42 84 03/08/20 03:30 87 18 30 03/08/20 00:00 71 03/08/20 00:00 Mechanical Ventilator 03/08/20 00:00 97.7 71 15 117/63 (81) 98 Intake and Output 03/07/20 03/08/20 19:00 07:00 Intake Total 740 ml 810 ml Output Total 950 ml 400 ml Balance -210 ml 410 ml Free Water 300 ml 230 ml IV Total 100 ml Tube Feeding 440 ml 480 ml Output Urine Total 950 ml 400 ml # Bowel Movements 1 Laboratory Tests 03/08/20 03:30: Sodium Level 138, Potassium Level 4.6, Chloride Level 107, Carbon Dioxide Level 26, Anion Gap 5, Blood Urea Nitrogen 27H, Creatinine 0.7, Estimat Glomerular Filtration Rate > 60, Glucose Level 113H, Calcium Level 8.0L, Magnesium Level 1.8 Height (Feet): 5 Height (Inches): 5.00 Weight (Pounds): 147 Objective WDWN AA woman NCAT, (+) Trach Coarse BS RR abd soft NT ND, (+) GT (++) edema Lilly Au MD Mar 08, 2020 23:20
== END 2020-03-08 14:00 | DRG 4 ==
LOC: EMR 20:47 → ICU 21:28 → EDBEDREQ 23:30 → ICU 02-14 00:05 → 2W 02-29 17:28
PROC: 0BH17EZ Insertion of Endotracheal Airway into Trachea, Via Natural or Artificial Opening (ICD-10-PCS; 2020-02-13)
PROC: 5A1955Z Respiratory Ventilation, Greater than 96 Consecutive Hours (ICD-10-PCS; 2020-02-13)
PROC: B548ZZA Ultrasonography of Superior Vena Cava, Guidance (ICD-10-PCS; 2020-02-27)
PROC: 02HV33Z Insertion of Infusion Device into Superior Vena Cava, Percutaneous Approach (ICD-10-PCS; 2020-02-27)
PROC: 0B113F4 Bypass Trachea to Cutaneous with Tracheostomy Device, Percutaneous Approach (ICD-10-PCS; principal; 2020-02-27 14:00)
PROC: 0DH63UZ Insertion of Feeding Device into Stomach, Percutaneous Approach (ICD-10-PCS; 2020-03-01)
PROC: 0DD68ZX Extraction of Stomach, Via Natural or Artificial Opening Endoscopic, Diagnostic (ICD-10-PCS; 2020-03-01)
DX: A41.9 Sepsis, unspecified organism (principal); R65.21 Severe sepsis with septic shock; I21.4 Non-ST elevation (NSTEMI) myocardial infarction; J15.6 Pneumonia due to other Gram-negative bacteria; J96.01 Acute respiratory failure with hypoxia; G92 Toxic encephalopathy; J69.0 Pneumonitis due to inhalation of food and vomit; N39.0 Urinary tract infection, site not specified; G81.94 Hemiplegia, unspecified affecting left nondominant side; Z99.11 Dependence on respirator [ventilator] status; J90 Pleural effusion, not elsewhere classified; E87.0 Hyperosmolality and hypernatremia; E44.0 Moderate protein-calorie malnutrition; Q85.00 Neurofibromatosis, unspecified; G40.909 Epilepsy, unspecified, not intractable, without status epilepticus; R13.10 Dysphagia, unspecified; I27.20 Pulmonary hypertension, unspecified; Z20.828 Contact with and (suspected) exposure to other viral communicable diseases; H91.90 Unspecified hearing loss, unspecified ear; E87.6 Hypokalemia; E83.42 Hypomagnesemia; E86.1 Hypovolemia; K31.84 Gastroparesis; Z68.25 Body mass index [BMI] 25.0-25.9, adult; G93.9 Disorder of brain, unspecified
CPT/HCPCS: 31500; 36415; 36569; 36600; 70450; 71045; 74018; 76700; 76937; 80048; 80053; 80156; 80202; 81003; 82140; 82150; 82248; 82270; 82306; 82533; 82550; 82553; 82607; 82728; 82746; 82803; 83540; 83550; 83605; 83615; 83690; 83735; 83880; 84443; 84484; 85007; 85025; 85379; 85610; 85651; 85730; 86140; 86592; 86705; 86709; 86803; 87040; 87070; 87081; 87086; 87181; 87205; 87340; 93005; 93306; 93925; 93930; 94002; 94003; 94150; 94664; 95819; 96361; 96365; 96368; 96375; 99291; 99292; J2250; J2765; J7030; J8499; U0002

== ENCOUNTER 2020-03-29 18:42 | Inpatient (IN) | payer MEDICARE, MEDICAID ==
[2020-03-29] VITALS (9 sets, daily range): BP systolic 58–134; BP diastolic 33–101
[~2020-03-29] VITALS: Ht 165.1 cm; Wt 80.3 kg
[~2020-03-29 18:42] MED LIST changes: +CARBAMAZEPINE200 M3 ORAL; +MULTIVITAMINS1 EAC2 ORAL; +[UNRECOGNIZED DRUG - OTHER] OP
[2020-03-29] MEDS ORDERED: Vancomycin 1 GM in NS 275 ML IV ONE (19:00)
[2020-03-29] MEDS ORDERED: Sodium Chloride 2,500 ML IVLG ONE (19:00)
[2020-03-29] MEDS ORDERED: Cefepime HCl 1 GM in D5W 55 ML IVPB ONE (19:00)
--- NOTE | 2020-03-29 19:11 | Emergency Room Report ---
History of Present Illness General Chief Complaint: Dyspnea/Respdistress Source: EMS Present Illness HPI 49-year-old female with history of neurofibromatosis, respiratory failure, tracheostomy ventilator dependent, here with desaturation and vomiting. At the assisted the patient vomited and had acute desaturation in the 70s. When paramedics arrived patient was on the ventilator but they needed to disconnected and then bagged the patient with a bag valve through her tracheostomy to maintain oxygen saturation greater than 90%. Patient vomited multiple times en route to the emergency department. She is unable to respond to questions or commands due to her baseline altered mental status. 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[employer]OR: No - unknown Nursing Documentation-[facility] Past Medical History Deferred: Pt Cognitively Impaired Past Medical History: No History, Except For Hx Cardiac Problems: Yes Hx Hypertension: No Hx Pacemaker: No Hx Asthma: No Hx COPD: No Hx Diabetes: Yes Hx Cancer: No Hx Gastrointestinal Problems: No Hx Dialysis: No Hx Neurological Problems: Yes - paraplegic Hx Cerebrovascular Accident: No Hx Seizures: Yes Hx Vertigo: Yes Hx Dizziness: Yes Hx Neurologic Surgery: Yes - multiple meningiomas with cranial resection Review of Systems All Other Systems: limited - Unable to assess secondary to chronic condition Physical Exam Vital Signs Date Time Temp Pulse Resp B/P (MAP) Pulse Ox O2 Delivery O2 Flow Rate FiO2 03/29/20 18:47 98.8 107 18 102/51 (68) 94 Ambu-Bag Sp02 EP Interpretation: reviewed General Appearance: other - Chronically ill. Unresponsive Head: normocephalic, atraumatic Eyes: bilateral eye normal inspection, bilateral eye PERRL ENT: no angioedema Neck: other - Tracheostomy in place with no bleeding or surrounding erythema or induration Respiratory: chest non-tender, other - Mechanical breath sounds, rales in all lung vu Cardiovascular #1: regular rate, rhythm, other - Diffuse 3+ edema and anasarca in all extremities Cardiovascular #2: 2+ carotid (R), 2+ carotid (L), 2+ radial (R), 2+ radial (L), 2+ dorsalis pedis (R), 2+ dorsalis pedis (L) Gastrointestinal: normal bowel sounds, non tender, soft, non-distended, no guarding, no rebound, other - G-tube in place Rectal: deferred Genitourinary: no CVA tenderness Musculoskeletal: back normal, normal range of motion, calf tenderness, gait/station normal, non-tender Neurologic: other - GCS 3 at baseline. Unresponsive, does not withdraw from pain Lymphatic: no adenopathy Procedures Central Line Central Line : Consent: Emergent Central Line Lumen: triple Maximal Sterile Barrier Tech: yes cap, yes mask, yes sterile gown, yes sterile gloves, yes large sterile sheet, yes hand hygiene, yes chlorhexidine prep Central Line Postion: femoral (R) US Guided Line?: Yes Vessel visualized with U/S: Right Femoral Vein Ultrasound Findings: Collapsible Vessel, Vessel Patent, Color flow present, Visualize vessel puncture Complications: none Central Line Post Position: sutured, good blood return Attempts: One Patient Tolerated: Well Complications: None Medical Decision Making Diagnostic Impression: Primary Impression: Septic shock Additional Impressions: Hyperkalemia Elevated troponin Respiratory failure Pneumonia UTI (urinary tract infection) ER Course Total critical care time: Approximately 75 minutes Due to a high probability of clinically significant, life threatening deterioration, the patient required the highest level of preparedness to inter vene emergently and I personally spent this critical care time directly and personally managing the patient. This critical care time included obtaining a history, examining the patient, pulse oximetry, ordering and reviewing studies, ordering treatments, evaluating response to treatment and updating management plan as needed, frequent reassessment and discussion with other providers as well as arranging for ultimate disposition. This critical to care time was performed to assess and manage the high probability of life-threatening deterioration that could result in multiorgan failure. This critical care time is separate from the separately billable procedures and treating other patients. EKG: NSR, no ischemia, intervals WNL. No ectopy. T wave inversions in leads V1, V3, V4, 3, aVF, aVR. Rhythm strip: patient monitored for arrhythmias - no malignant dysrhythmias, runs of PVCs, nor pauses noted Laboratory Tests Test 03/29/20 19:00 03/29/20 19:24 White Blood Count 10.8 K/UL (4.8-10.8) Red Blood Count 3.63 M/UL (4.20-5.40) L Hemoglobin 11.5 G/DL (12.0-16.0) L Hematocrit 38.2 % (37.0-47.0) Mean Corpuscular Volume 105 FL (80-99) H Mean Corpuscular Hemoglobin 31.6 PG (27.0-31.0) H Mean Corpuscular Hemoglobin Concent 30.1 G/DL (32.0-36.0) L Red Cell Distribution Width 17.3 % (11.6-14.8) H Platelet Count 293 K/UL (150-450) Mean Platelet Volume 8.5 FL (6.5-10.1) Neutrophils (%) (Auto) 78.1 % (45.0-75.0) H Lymphocytes (%) (Auto) 9.4 % (20.0-45.0) L Monocytes (%) (Auto) 11.1 % (1.0-10.0) H Eosinophils (%) (Auto) 0.0 % (0.0-3.0) Basophils (%) (Auto) 1.5 % (0.0-2.0) Urine Color Yellow Urine Appearance Cloudy Urine pH 5 (4.5-8.0) Urine Specific Lorenzo 1.010 (1.005-1.035) Urine Protein 3+ (NEGATIVE) H Urine Glucose (UA) Negative (NEGATIVE) Urine Ketones 1+ (NEGATIVE) H Urine Blood 4+ (NEGATIVE) H Urine Nitrite Negative (NEGATIVE) Urine Bilirubin Negative (NEGATIVE) Urine Urobilinogen 8 MG/DL (0.0-1.0) H Urine Leukocyte Esterase 3+ (NEGATIVE) H Urine RBC 5-10 /HPF (0 - 2) H Urine WBC Tntc /HPF (0 - 2) H Urine Squamous Epithelial Cells Few /LPF (NONE/OCC) Urine Bacteria Moderate /HPF (NONE) H Sodium Level 132 MMOL/L (136-145) L Potassium Level 6.2 MMOL/L (3.5-5.1) *H Chloride Level 94 MMOL/L (98-107) L Carbon Dioxide Level 31 MMOL/L (21-32) Anion Gap 7 mmol/L (5-15) Blood Urea Nitrogen 54 mg/dL (7-18) H Creatinine 0.9 MG/DL (0.55-1.30) Estimated Glomerular Filtration Rate > 60 mL/min (>60) Glucose Level 144 MG/DL (74-106) H Lactic Acid Level 4.10 mmol/L (0.4-2.0) H Calcium Level 9.1 MG/DL (8.5-10.1) Total Bilirubin 0.6 MG/DL (0.2-1.0) Aspartate Amino Transferase (AST) 77 U/L (15-37) H Alanine Aminotransferase (ALT) 69 U/L (12-78) Alkaline Phosphatase 321 U/L (46-116) H Total Creatine Kinase 30 U/L (26-308) Creatine Kinase MB 1.2 NG/ML (0.0-3.6) Creatine Kinase MB Relative Index 4.0 Troponin I 0.080 ng/mL (0.000-0.056) Total Protein 7.3 G/DL (6.4-8.2) Albumin 2.2 G/DL (3.4-5.0) L Globulin 5.1 g/dL Albumin/Globulin Ratio 0.4 (1.0-2.7) L Arterial Blood pH 7.331 (7.350-7.450) Arterial Blood Partial Pressure CO2 57.3 mmHg (35.0-45.0) *H Arterial Blood Partial Pressure O2 57.8 mmHg (75.0-100.0) L Arterial Blood HCO3 29.6 mmol/L (22.0-26.0) H Arterial Blood Oxygen Saturation 85.9 % (95-100) *L Arterial Blood Base Excess 2.6 (-2-2) H Jax Test Positive 49-year-old female here with respiratory failure and septic shock. Patient was hypotensive on arrival to the emergency department and also had low oxygen saturation. Bag was attached to the patient's tracheostomy and deep suction was then performed with resolution of the patient's hypoxia. She was attached to the ventilator and had normal oxygen saturation throughout the rest of her stay in the emergency department. Blood pressure initially came up with some IV fluids however the patient then became very hypotensive and required vasopressor support. She was started on Levophed. Central line was placed in the patient's right femoral vein as described above. Patient's blood pressure improved. Clarissa st x-ray showed obscured diaphragms and possible consolidation in the right lower lobe. Patient was actively vomiting and pouring vomit from her nose and mouth throughout much of her stay in the emergency department. G-tube was placed on suction and patient also had NG tube placed that also was placed on suction. She was started on vancomycin, cefepime, levaquin. Patient's pota ssium was 6.2. There were no EKG changes consistent with hyperkalemia. However patient was still given calcium, insulin, dextrose, Lasix. Also urinary tract infection. Admitted to ICU in critical condition. Last Vital Signs Date Time Temp Pulse Resp B/P (MAP) Pulse Ox O2 Delivery O2 Flow Rate FiO2 03/29/20 18:47 98.8 107 18 102/51 (18) 94 Guido Crandall M.D. Mar 29, 2020 19:11
[2020-03-29 19:16] LABS: APPEARANCE,URINE CLOUDY; BILIRUBIN, URINE NEGATIVE (NEGATIVE); GLUCOSE, URINE (UA) NEGATIVE (NEGATIVE); KETONES,URINE 1+ (NEGATIVE); LEUKOCYTE ESTERASE ,URINE 3+ (NEGATIVE); NITRITE,URINE NEGATIVE (NEGATIVE); PH,URINE 5 (4.5-8.0); PROTEIN,URINE 3+ (NEGATIVE); UROBILINOGEN,URINE 8 MG/DL (0.0-1.0)
[2020-03-29 19:18] LABS: COLOR,URINE YELLOW
[2020-03-29 19:37] LABS: ALANINE AMINOTRANSFERASE 69 U/L (12-78); ALBUMIN 2.2 G/DL (3.4-5.0); ALBUMIN/GLOBULIN RATIO 0.4 (1.0-2.7); ALKALINE PHOSPHATASE 321 U/L (46-116); ANION GAP 7 mmol/L (5-15); ASPARTATE AMINO TRANSFERASE 77 U/L (15-37); BILIRUBIN,TOTAL 0.6 MG/DL (0.2-1.0); BLOOD UREA NITROGEN 54 mg/dL (7-18); CALCIUM 9.1 MG/DL (8.5-10.1); CARBON DIOXIDE 31 MMOL/L (21-32); CHLORIDE 94 MMOL/L (98-107); CKMB 1.2 NG/ML (0.0-3.6); CREATINE KINASE 30 U/L (26-308); CREATININE 0.9 MG/DL (0.55-1.30); SODIUM 132 MMOL/L (136-145)
[2020-03-29 19:38] LABS: POTASSIUM 6.2 MMOL/L (3.5-5.1)
[2020-03-29 19:54] LABS: BASOPHILS % (AUTO) 1.5 % (0.0-2.0); HEMATOCRIT 38.2 % (37.0-47.0); HEMOGLOBIN 11.5 G/DL (12.0-16.0); LYMPHOCYTES % (AUTO) 9.4 % (20.0-45.0); MEAN CORPUSCULAR VOLUME 105 FL (80-99); MONOCYTES % (AUTO) 11.1 % (1.0-10.0); NEUTROPHILS % (AUTO) 78.1 % (45.0-75.0); PLATELET COUNT 293 K/UL (150-450); RED BLOOD COUNT 3.63 M/UL (4.20-5.40); RED CELL DISTRIBUTION WIDTH 17.3 % (11.6-14.8); WHITE BLOOD COUNT 10.8 K/UL (4.8-10.8)
[2020-03-29] MEDS ORDERED: Insulin Human Regular 100units/ml 3ml IV ONE (20:30)
[2020-03-29] MEDS ORDERED: Calcium Gluconate 1gm/10ml vial IVP ONE (20:30)
[2020-03-29] MEDS ORDERED: LORazepam Inj 2mg/ml 1ml IV PRN (21:45)
[2020-03-29] MEDS: D5NS 1,000 ML IV SCH (23:38)
[2020-03-30] VITALS (39 sets, daily range): BP systolic 33–141; BP diastolic 12–96
--- NOTE | 2020-03-30 00:15 | Consultation ---
DATE OF CONSULTATION: 03/29/2020 PULMONARY CONSULTATION REASON FOR ADMISSION: Sepsis, aspiration pneumonia. HISTORY: This is a 49-year-old female, unfortunate, who has a history of neurofibromatosis with multiple brain masses, history of respiratory failure, with recent tracheostomy. The patient had been doing fairly well and more alert in the long term. The patient was noted to be unresponsive with noted oxygen desaturation, possible vomiting episode. The patient presented with hypotension as well as respiratory failure. The patient is unable to respond to any questions when seen. The patient's care was discussed and reviewed with the patient's long term. Chart as well reviewed. PAST MEDICAL HISTORY: Notable for pulmonary hypertension, neurofibromatosis, respiratory failure, tracheostomy, G-tube, aspiration, uterine fibroids, generalized weakness, history of sepsis, history of elevated troponin. MEDICATIONS: Reviewed. ALLERGIES: Reviewed. SOCIAL HISTORY: Resides in a subacute facility. She lives at home with 24-hour care. PHYSICAL EXAMINATION: GENERAL: An ill-appearing female, frail at this time. The patient is noted to be hypotensive on arrival. VITAL SIGNS: Blood pressure at current state is 130/100, heart rate 102, temperature 95, respiratory rate is 19, saturations are 92%. The patient is currently 100%. LUNGS: Some scattered rhonchi. Moderate air entry. CARDIAC: Slightly tachycardic. Distant positive P2. Tracheostomy is midline. ABDOMEN: Soft, nontender. G-tube in place. EXTREMITIES: There is significant atrophy present. The patient is obtunded. LABORATORY DATA: Reviewed. Hemoglobin is 11.5, white count 10.8, platelets 293. Chemistry, her potassium is 6.2, BUN 54, creatinine 0.9. Troponin 0.08. Blood gases, 7.33/57/57.8. IMPRESSION: Septic shock, respiratory failure, aspiration pneumonia, profound hypoxemic respiratory failure, hyperkalemia, acute renal failure, elevated troponin, possible non-STEMI, severe protein-calorie malnutrition, anemia, pulmonary hypertension. RECOMMENDATIONS: Supportive care. Pressors as needed. NPO for now except meds, aggressive IV antibiotics. ID and Cardiology to see. Troponins to be followed. Correct potassium. Empiric antibiotics as outlined. Monitor clinically for further changes and interventions and monitor in the ICU. The patient is critical. We will update family. Juan Snow M.D. DR: ANTOINETTE JOB#: [id number] CC:
--- NOTE | 2020-03-30 01:45 | Consultation ---
DATE OF CONSULTATION: 03/29/2020 CARDIOLOGY CONSULTATION CONSULTING PHYSICIAN: Marcus Main M.D. REQUESTING PHYSICIAN: Liborio Dugan M.D. REASON: Shock. HISTORY OF PRESENT ILLNESS: This is a 49-year-old female. She has neurofibromatosis and respiratory failure with tracheostomy placement approximately 1 month ago rendering her ventilator dependent at this time. She resides at a subacute facility. She reportedly had some vomiting and subsequent hypoxia. She was transported by paramedics following suctioning interventions and subsequently improved oxygenation. Concern was raised during her emergency room evaluation for low blood pressure readings at times in the 50 systolic range. I have been asked to assist with cardiovascular care. ALLERGIES: Include penicillin and seafood. MEDICATIONS: Prior to admission, reviewed and reconciled. PAST MEDICAL HISTORY: Includes neurofibromatosis, respiratory failure with tracheostomy, paroxysmal atrial ectopy, type 2 diabetes mellitus, paraplegia, seizure disorder, history of meningiomas and craniotomies, and cognitive impairment. FAMILY HISTORY: Not known. SOCIAL HISTORY: Negative for smoking, alcohol, or substance abuse. REVIEW OF SYSTEMS: Not obtainable. Review of records including prior hospital stay was completed and pertinent data outlined above. PHYSICAL EXAMINATION: VITAL SIGNS: Blood pressure was down to 39/23 at 1 point, subsequently up to 130/100; heart rate in the 90 to 110 range, respiratory rate 18 to 22, no fevers documented on 100% FiO2 via ventilator and support. HEENT: Temporal wasting. Thick trach secretions. LUNGS: Bilateral rhonchi. CARDIAC: Regular rhythm. Rapid rate. Normal S1, S2. ABDOMEN: Soft. G-tube intact. EXTREMITIES: No edema. SKIN: Skin exam is deferred. LABORATORY AND DIAGNOSTIC DATA: White count 10.8, hemoglobin 11.5. Sodium 132, potassium 6.2, bicarb 31, chloride 94, BUN 54, creatinine 0.9. Lactic acid 4.1. Troponin 0.08. Albumin 2.2. ABG, 7.33, 57, 58. Chest x-ray with too numerous to count white cells. IMPRESSION: 1. Sepsis, shock. 2. Aspiration pneumonia. 3. Urinary tract infection. 4. Acute renal failure. 5. Acute myocardial ischemia and possible [id number] myocardial infarction. 6. Lactic acidosis. 7. Severe protein-calorie malnutrition. 8. Hyperkalemia. 9. Hyponatremia. 10. Neurofibromatosis. 11. Seizure disorder. PLAN: 1. Ventilator support. 2. Broad-spectrum antimicrobials. 3. Respiratory hygiene. 4. Saline hydration. 5. Serial lactic acid levels. 6. Follow up chemistry panel. 7. Serial troponin levels. 8. Maintain adequate oxygenation. 9. Monitor acid-based status. 10. No role for antiarrhythmics. 11. Fluid challenge for hypotensive episodes. 12. Critical and guarded. Marcus Main M.D. DR: FERNANDA JOB#: [id number] CC:
[2020-03-30] MEDS: Norepinephrine 4mg/NS Premix 250 ML IV PRN ×3 (02:17→11:22)
[2020-03-30 04:48] LABS: BASOPHILS % (AUTO) 1.5 % (0.0-2.0); HEMATOCRIT 34.6 % (37.0-47.0); LYMPHOCYTES % (AUTO) 8.6 % (20.0-45.0); MEAN CORPUSCULAR VOLUME 98 FL (80-99); MONOCYTES % (AUTO) 11.6 % (1.0-10.0); NEUTROPHILS % (AUTO) 78.3 % (45.0-75.0); PLATELET COUNT 289 K/UL (150-450); RED BLOOD COUNT 3.54 M/UL (4.20-5.40); RED CELL DISTRIBUTION WIDTH 16.4 % (11.6-14.8); WHITE BLOOD COUNT 10.5 K/UL (4.8-10.8)
[2020-03-30 05:14] LABS: ALANINE AMINOTRANSFERASE 71 U/L (12-78); ALBUMIN/GLOBULIN RATIO 0.4 (1.0-2.7); ALKALINE PHOSPHATASE 287 U/L (46-116); ANION GAP 7 mmol/L (5-15); ASPARTATE AMINO TRANSFERASE 78 U/L (15-37); BILIRUBIN,TOTAL 0.7 MG/DL (0.2-1.0); BLOOD UREA NITROGEN 46 mg/dL (7-18); CALCIUM 8.6 MG/DL (8.5-10.1); CARBON DIOXIDE 30 MMOL/L (21-32); CHLORIDE 96 MMOL/L (98-107); CREATININE 0.8 MG/DL (0.55-1.30); POTASSIUM 5.3 MMOL/L (3.5-5.1); SODIUM 133 MMOL/L (136-145)
[2020-03-30] MEDS ORDERED: carBAMazepine XR 200mg tab ORAL SCH (06:00)
[2020-03-30] MEDS ORDERED: Vasopressin 100 UNITS in NS 95 ML IV SCH (07:21)
[2020-03-30] MEDS: D5NS 1,000 ML IV SCH (07:45)
[2020-03-30] MEDS ORDERED: Hydrocortisone 100mg Inj IV SCH (08:00)
--- NOTE | 2020-03-30 08:00 | Critical Care Progress Note ---
Assessment/Plan Assessment/Plan IMPRESSION: Septic shock, respiratory failure, aspiration pneumonia, profound hypoxemic respiratory failure, hyperkalemia, acute renal failure, elevated troponin, possible non-STEMI, severe protein-calorie malnutrition, anemia, pulmonary hypertension. ? adrenal insufficiency RECOMMENDATIONS: Supportive care. Pressors as needed. NPO for now except meds, aggressive IV antibiotics. ID and Cardiology. Troponins to be followed. Correct potassium. add Hydrocortisone; anticoagulate; venous US medications/laboratory data/nursing notes/ICU care reviewed in detail note reviewed and edited care discussed with RN and RT ICU time spent >40 minutes Critical Care - Subjective Interval Events: doing poorly hypotensive hypoxemic ROS Limited/Unobtainable: Yes Condition: critical EKG Rhythm: Sinus Rhythm I&O: Intake and Output 03/29/20 03/30/20 19:00 07:00 Intake Total 1279.375 ml Output Total 1220 ml Balance 59.375 ml Intake Oral 0 ml IV Total 1229.375 ml Other 50 ml Output Urine Total 1220 ml Critical Care - Objective Last 24 Hour Vital Signs Date Time Temp Pulse Resp B/P (MAP) Pulse Ox O2 Delivery O2 Flow Rate FiO2 03/30/20 07:00 112 27 65/25 (38) 85 03/30/20 06:41 105/84 03/30/20 06:30 110 24 03/30/20 06:30 110 24 105/84 (91) 83 03/30/20 06:00 110 21 111/81 (91) 90 03/30/20 05:30 108 22 111/73 (86) 88 03/30/20 05:00 109 26 113/85 (94) 88 03/30/20 04:30 103 12 110/86 (94) 92 03/30/20 04:00 100 03/30/20 04:00 Mechanical Ventilator 03/30/20 04:00 98.7 112 10 121/91 (101) 86 03/30/20 03:30 87 18 100 03/30/20 03:30 111 19 111/87 (95) 90 03/30/20 03:07 97 03/30/20 03:00 97 19 112/81 (91) 90 03/30/20 02:30 101 15 96/73 (81) 89 03/30/20 02:17 99/75 03/30/20 02:00 97 18 95/73 (80) 90 03/30/20 02:00 95/73 03/30/20 01:45 95 16 95/67 (76) 90 03/30/20 01:30 96 19 104/77 (86) 81 03/30/20 01:15 95 18 97/56 (70) 90 03/30/20 01:00 98/68 03/30/20 01:00 93 16 98/68 (78) 90 03/30/20 00:45 95 16 110/66 (81) 89 03/30/20 00:30 97 16 103/69 (80) 89 03/30/20 00:15 99 13 112/91 (98) 89 03/30/20 00:00 100 03/30/20 00:00 122/94 03/30/20 00:00 97.5 99 12 122/94 (103) 92 03/30/20 00:00 Mechanical Ventilator 03/29/20 23:45 126/99 03/29/20 23:45 99 6 126/99 (108) 91 03/29/20 23:30 129/98 03/29/20 23:30 101 21 129/98 (108) 90 03/29/20 23:28 97 21 126/98 (107) 90 03/29/20 23:24 102 21 130/101 (111) 94 03/29/20 23:22 Mechanical Ventilator 03/29/20 23:20 102 03/29/20 23:15 97.2 92 23 134/94 (107) 92 03/29/20 23:15 134/94 03/29/20 23:14 102 21 130/96 (107) 100 03/29/20 23:13 94 18 100 03/29/20 23:04 15 132/101 (111) 97 03/29/20 23:00 100 03/29/20 22:50 99.0 108 18 135/68 90 Mechanical Ventilator 100 03/29/20 21:30 130/100 03/29/20 21:00 98.5 102 19 58/34 92 Mechanical Ventilator 100 03/29/20 20:00 58/34 03/29/20 19:50 39/23 03/29/20 19:13 98.5 102 19 94/33 92 Mechanical Ventilator 100 03/29/20 19:03 97 19 100 03/29/20 19:00 97 18 Ambu-Bag 10/1/20 18:47 98.8 107 18 102/51 (67) 94 Ambu-Bag Labs: Laboratory Tests 03/29/20 19:00: White Blood Count 10.8, Red Blood Count 3.63L, Hemoglobin 11.5L, Hematocrit 38.2, Mean Corpuscular Volume 105H, Mean Corpuscular Hemoglobin 31.6H, Mean Corpuscular Hemoglobin Concent 30.1L, Red Cell Distribution Width 17.3H, Platelet Count 293, Mean Platelet Volume 8.5, Neutrophils (%) (Auto) 78.1H, Lymphocytes (%) (Auto) 9.4L, Monocytes (%) (Auto) 11.1H, Eosinophils (%) (Auto) 0.0, Basophils (%) (Auto) 1.5, Urine Color Yellow, Urine Appearance Cloudy, Urine pH 5, Urine Specific Sherman 1.010, Urine Protein 3+H, Urine Glucose (UA) Negative, Urine Ketones 1+H, Urine Blood 4+H, Urine Nitrite Negative, Urine Bilirubin Negative, Urine Urobilinogen 8H, Urine Leukocyte Esterase 3+H, Urine RBC 5-10H, Urine WBC TntcH, Urine Squamous Epithelial Cells Few, Urine Bacteria ModerateH, Sodium Level 132L, Potassium Level 6.2*H, Chloride Level 94L, Carbon Dioxide Level 31, Anion Gap 7, Blood Urea Nitrogen 54H, Creatinine 0.9, Estimat Glomerular Filtration Rate > 60, Glucose Level 144H, Lactic Acid Level 4.10H, Calcium Level 9.1, Total Bilirubin 0.6, Aspartate Amino Transf (AST/SGOT) 77H, Alanine Aminotransferase (ALT/SGPT) 69, Alkaline Phosphatase 321H, Total Creatine Kinase 30, Creatine Kinase MB 1.2, Creatine Kinase MB Relative Index 4.0, Troponin I 0.080H, Total Protein 7.3, Albumin 2.2L, Globulin 5.1, Albumin/Globulin Ratio 0.4L, Carbamazepine (Tegretol) Level 11.2 03/29/20 19:24: Arterial Blood pH 7.331L, Arterial Blood Partial Pressure CO2 57.3*H, Arterial Blood Partial Pressure O2 57.8L, Arterial Blood HCO3 29.6H, Arterial Blood Oxygen Saturation 85.9*L, Arterial Blood Base Excess 2.6H, Jax Test Positive 03/29/20 21:40: Lactic Acid Level 2.50H 03/30/20 03:45: White Blood Count 10.5, Red Blood Count 3.54L, Hemoglobin 11.0L, Hematocrit 34.6L, Mean Corpuscular Volume 98, Mean Corpuscular Hemoglobin 31.1H, Mean Corpuscular Hemoglobin Concent 31.8L, Red Cell Distribution Width 16.4H, Platelet Count 289, Mean Platelet Volume 7.2, Neutrophils (%) (Auto) 78.3H, Lymphocytes (%) (Auto) 8.6L, Monocytes (%) (Auto) 11.6H, Eosinophils (%) (Auto) 0.0, Basophils (%) (Auto) 1.5, Sodium Level 133L, Potassium Level 5.3H, Chloride Level 96L, Carbon Dioxide Level 30, Anion Gap 7, Blood Urea Nitrogen 46H, Creatinine 0.8, Estimat Glomerular Filtration Rate > 60, Glucose Level 136H, Calcium Level 8.6, Total Bilirubin 0.7, Aspartate Amino Transf (AST/SGOT) 78H, Alanine Aminotransferase (ALT/SGPT) 71, Alkaline Phosphatase 287H, Total Protein 7.0, Albumin 2.0L, Globulin 5.0, Albumin/Globulin Ratio 0.4L 03/30/20 05:33: Lactic Acid Level 2.50H 03/30/20 07:38: Arterial Blood pH 7.370, Arterial Blood Partial Pressure CO2 53.6H, Arterial Blood Partial Pressure O2 42.7*L, Arterial Blood HCO3 30.3H, Arterial Blood Oxygen Saturation 75.0*L, Arterial Blood Base Excess 4.0H, Jax Test Positive Objective: WDWN ill appearing trach, GT reduced breath sounds bilaterally without rhonchi or wheeze [id number] without MRG NABS nontender GT no CCE weak skin noted Micro: Microbiology Date/Time Source Procedure Growth Status 03/29/20 21:40 Nasopharynx SARS-CoV-2 RdRp Gene Assay - Final Complete Accucheck: 144 Juan Snow MD Mar 30, 2020 08:00
[2020-03-30] MEDS ORDERED: levETIRAcetam 500mg/5ml Liquid GT SCH (09:00)
[2020-03-30] MEDS ORDERED: Heparin 5000 units/ml inj SUBQ SCH (09:00)
[2020-03-30] MEDS ORDERED: Revatio 20mg tab ORAL SCH (09:00)
[2020-03-30] MEDS ORDERED: Vancomycin 1gm/D5W 275ml IVPB SCH ×2 (09:00)
[2020-03-30] MEDS ORDERED: Pantoprazole Inj IVP SCH (09:00)
[2020-03-30] MEDS ORDERED: Cefepime HCl 1 GM in D5W 55 ML IVPB SCH (09:00)
--- NOTE | 2020-03-30 09:15 | History and Physical Report ---
DATE OF ADMISSION: 03/29/2020 CHIEF COMPLAINT: Respiratory failure, sepsis, and shock. HISTORY OF PRESENT ILLNESS: The patient is a 49-year-old female, well known to me. She has a history of neurofibromatosis, chronic respiratory failure, and seizure disorder. She has been convalescing at a subacute longterm facility when she was noted to be hypoxic and short of breath. There was possibly an episode of vomiting and the patient was transferred by paramedics to the emergency room. On evaluation there, she was hypotensive. Her O2 saturations were low. She received aggressive suctioning with copious removal of secretions. Saturations did improve. Central line was placed for administration of pressors, and the patient is now admitted to the intensive care unit. She is currently awake. PAST MEDICAL HISTORY: As above. PAST SURGICAL HISTORY: Includes a trach and a G-tube. CURRENT MEDICATIONS: Reconciled and reviewed. ALLERGIES: Penicillin and seafood. FAMILY HISTORY: Noncontributory. SOCIAL HISTORY: There is no known history of tobacco, ethanol, or drugs. REVIEW OF SYSTEMS: Unobtainable as the patient is confused. PHYSICAL EXAMINATION: VITAL SIGNS: Temperature was 98.7, pulse 112, respirations 18, and blood pressure 111/87. GENERAL: The patient is chronically ill-appearing thin female, in no apparent distress. HEENT: Head is normocephalic. There is exophthalmos noted. The oropharynx is clear. NECK: Supple. Trach site was clean and dry and intact. HEART: Regular rate and rhythm. LUNGS: Significant for coarse breath sounds bilaterally. ABDOMEN: Soft, nontender, and nondistended. EXTREMITIES: Without clubbing. There is some dark discoloration of the toes noted. Feet are cool. LABORATORY DATA: White count was 10, hemoglobin 11, hematocrit 38, platelet count of 293,000. Sodium 133, potassium 5.3, chloride 96, bicarb 30, BUN 46, creatinine 0.8. Lactic acid was 2.5. UA showed too numerous to count wbc's. Chest x-ray results are currently pending. ASSESSMENT: This is an unfortunate 49-year-old female with a history of chronic respiratory failure, neurofibromatosis, seizure disorder, and dysphagia, admitted with complaints of septic shock secondary to aspiration pneumonia and urinary tract infection. PLAN: 1. Continue pressors. 2. Fluid resuscitation. 3. Broad spectrum IV antibiotics. 4. Follow up cultures. 5. Continue seizure medications. 6. Continue DVT and stress ulcer prophylaxes. 7. The patient's status is critical and guarded. Liborio Dugan M.D. DR: DORON JOB#: [id number] CC:
[2020-03-30] MEDS ORDERED: Sodium Bicarbonate 50ml Carp ONE (09:58)
[2020-03-30] MEDS ORDERED: Calcium Chloride 10% 10ml carpuject IVP ONE (09:58)
[2020-03-30] MEDS ORDERED: D5NS 1000ml IV ONE (10:20)
[2020-03-30] MEDS ORDERED: D5 1/2NS 1000ml IV ONE (10:20)
[2020-03-30] MEDS ORDERED: NS 275ml ONE (10:20)
[2020-03-30] MEDS ORDERED: Tubing IV Secondary IV ONE (10:20)
--- NOTE | 2020-03-30 10:29 | Emergency Room Report ---
History of Present Illness General Chief Complaint: Dyspnea/Respdistress Source: Medical Record Present Illness Allergies: Coded Allergies: PENICILLINS (Verified Allergy, Severe, 08/07/12) FISH CONTAINING PRODUCTS (Verified Allergy, Unknown, 06/02/18) Uncoded Allergies: seafood (Allergy, Unknown, 06/02/18) COVID-19 Screening Contact w/high risk pt: Yes Recent Travel to affected area: No Experienced COVID-19 symptoms?: No COVID-19 Testing performed HYDROGEN CELL TENDER: No - unknown COVID-19 Screening: Negative COVID-19 Patient History Now: No Nursing Documentation-[facility] Past Medical History Deferred: Pt Cognitively Impaired Past Medical History: No History, Except For Hx Cardiac Problems: Yes Hx Hypertension: No Hx Pacemaker: No Hx Asthma: No Hx COPD: No Hx Diabetes: Yes Hx Cancer: No Hx Gastrointestinal Problems: Yes - gastroparesis Hx Dialysis: No Hx Neurological Problems: Yes - neurofibromatosis Hx Cerebrovascular Accident: No Hx Seizures: Yes Hx Epilepsy: Yes Hx Paralysis: Yes - paraplegia Hx Concentration Difficulty: Yes Hx Speech Problem: Yes Hx Vertigo: Yes Hx Dizziness: Yes Hx Dysphasia: Yes Hx Weakness: Yes Hx Neurologic Surgery: Yes Physical Exam Vital Signs Date Time Temp Pulse Resp B/P (MAP) Pulse Ox O2 Delivery O2 Flow Rate FiO2 03/29/20 18:47 98.8 107 18 102/51 (68) 94 Ambu-Bag 03/29/20 19:03 100 Medical Decision Making Diagnostic Impression: Primary Impression: Septic shock Additional Impressions: Respiratory failure Elevated troponin UTI (urinary tract infection) Pneumonia Hyperkalemia ER Course I was called to evaluate patient after cardiac arrest. Patient had onset of asystole. Was noted to be on max dose pressors with mechanical ventilation. Patient was receiving bag valve mask via trach. Was undergoing CPR. Patient was given medications as per code sheet. She was given some treatment for hyperkalemia with brief return of spontaneous circulation. Patient subsequently returned into asystolic rhythm. Had no response to further medications or CPR. Resuscitative efforts were terminated at 10:21 AM. Family to be notified by staff. Last Vital Signs Date Time Temp Pulse Resp B/P (MAP) Pulse Ox O2 Delivery O2 Flow Rate FiO2 03/30/20 09:00 117 24 102/85 (91) 77 03/30/20 08:00 99.8 03/30/20 08:00 Mechanical Ventilator 03/30/20 08:00 100 Disposition: Condition: Referrals: Liborio Dugan MD (PCP) Jaylan Esquivel MD Mar 30, 2020 10:29
[2020-03-30] MEDS ORDERED: Cefepime 1gm/D5W 55ml IVPB ONE ×2 (11:00)
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
--- NOTE | 2020-03-30 16:35 | Diagnostic Imaging Report ---
Indication: Pain and large edema Technique: Grayscale and duplex images of the bilateral lower extremity veins Comparison: None Findings: Bilaterally, grayscale and duplex images demonstrate no evidence of intraluminal thrombus. Normal phasic Doppler waveforms, demonstrating normal augmentation response and no evidence of valvular insufficiency. Greater saphenous vein(s) and tibial veins are patent. Normal compressibility. Exam is technically limited, due to excessive subcutaneous edema limiting visualization of the veins, particularly the calf veins. Veins are also difficult to compress. Impression: Limited exam. Grossly negative for evidence of lower extremity deep venous thrombosis bilaterally
--- NOTE | 2020-03-30 18:26 | Diagnostic Imaging Report ---
Indication: Shortness of breath Technique: One view of the chest Comparison: 03/01/2020 Findings: There are development of large left pleural effusion. Interim increased and now moderate right pleural effusion. The heart remains enlarged. Bilateral hazy parenchymal disease is demonstrated, stable slightly increased. Impression: Increasing bilateral pleural fluid, left greater than right Stable or slightly worse bilateral hazy parenchymal disease
[2020-03-30] MEDS ORDERED: Dyna-Hex 2% Top Sol 2oz TOPIC SCH (20:00)
[2020-03-30] MEDS ORDERED: Cefepime 2gm/D5W 110ml IV SCH ×2 (21:00)
--- NOTE | 2020-03-30 23:56 | Cardiology Progress Note ---
Subjective DATE OF SERVICE: Mar 30, 2020 Doing poorly Remains in ICU on full support with mech ventilation Also on high dose pressors. Objective Last 24 Hour Vital Signs Date Time Temp Pulse Resp B/P (MAP) Pulse Ox O2 Delivery O2 Flow Rate FiO2 03/30/20 11:22 40/19 03/30/20 10:17 114 25 33/17 (22) 03/30/20 10:15 110 21 03/30/20 10:00 0 14 03/30/20 09:45 80 5 50/33 (39) 03/30/20 09:39 83 20 55/38 (44) 66 03/30/20 09:30 81 26 42/31 (35) 73 03/30/20 09:23 107 21 96/79 80 03/30/20 09:15 107 26 96/79 (85) 80 03/30/20 09:00 117 24 102/85 (91) 77 03/30/20 08:53 124 26 120/83 77 03/30/20 08:45 121 20 120/83 (95) 77 03/30/20 08:30 118 23 115/78 (90) 76 03/30/20 08:15 111 17 118/82 (94) 83 03/30/20 08:00 99.8 114 24 135/96 (109) 83 03/30/20 08:00 119 03/30/20 08:00 Mechanical Ventilator 03/30/20 08:00 100 03/30/20 07:56 104 20 141/84 (103) 83 03/30/20 07:52 111 21 61/33 (42) 83 03/30/20 07:50 109 24 100 03/30/20 07:45 102 25 44/16 (25) 83 03/30/20 07:41 113 25 41/31 (34) 71 03/30/20 07:30 126 21 71/12 (31) 81 03/30/20 07:24 103 19 64/19 (34) 80 03/30/20 07:20 103 25 61/13 (29) 83 03/30/20 07:18 104 26 50/30 (37) 82 03/30/20 07:15 109 25 53/27 (36) 84 03/30/20 07:00 112 27 65/25 (38) 85 03/30/20 06:41 105/84 03/30/20 06:30 110 24 03/30/20 06:30 110 24 105/84 (91) 83 03/30/20 06:00 110 21 111/81 (91) 90 03/30/20 05:30 108 22 111/73 (86) 88 03/30/20 05:00 109 26 113/85 (94) 88 03/30/20 04:30 103 12 110/86 (94) 92 03/30/20 04:00 100 03/30/20 04:00 Mechanical Ventilator 03/30/20 04:00 98.7 112 10 121/91 (101) 86 03/30/20 03:30 87 18 100 03/30/20 03:30 111 19 111/87 (95) 90 03/30/20 03:07 97 03/30/20 03:00 97 19 112/81 (91) 90 03/30/20 02:30 101 15 96/73 (81) 89 03/30/20 02:17 99/75 03/30/20 02:00 97 18 95/73 (80) 90 03/30/20 02:00 95/73 03/30/20 01:45 95 16 95/67 (76) 90 03/30/20 01:30 96 19 104/77 (86) 81 03/30/20 01:15 95 18 97/56 (70) 90 03/30/20 01:00 98/68 03/30/20 01:00 93 16 98/68 (78) 90 03/30/20 00:45 95 16 110/66 (81) 89 03/30/20 00:30 97 16 103/69 (80) 89 03/30/20 00:15 99 13 112/91 (98) 89 03/30/20 00:00 100 03/30/20 00:00 122/94 03/30/20 00:00 97.5 99 12 122/94 (103) 92 03/30/20 00:00 Mechanical Ventilator 03/29/20 23:45 126/99 03/29/20 23:45 99 6 126/99 (108) 91 No change in ROS from my evaluation of 03/29/20. HEENT: Thick Trach secretions RHYTHM: ST LUNGS: bilateral rhonchi, trach site clean CARDIAC: regular rhythm, rapid rate, tachycardia ABDOMEN: normal bowel sounds, soft, G-Tube intact EXTREMITIES: trace edema Laboratory Tests Test 03/30/20 03:45 03/30/20 05:33 03/30/20 07:38 White Blood Count 10.5 K/UL (4.8-10.8) Red Blood Count 3.54 M/UL (4.20-5.40) L Hemoglobin 11.0 G/DL (12.0-16.0) L Hematocrit 34.6 % (37.0-47.0) L Mean Corpuscular Volume 98 FL (80-99) Mean Corpuscular Hemoglobin 31.1 PG (27.0-31.0) H Mean Corpuscular Hemoglobin Concent 31.8 G/DL (32.0-36.0) L Red Cell Distribution Width 16.4 % (11.6-14.8) H Platelet Count 289 K/UL (150-450) Mean Platelet Volume 7.2 FL (6.5-10.1) Neutrophils (%) (Auto) 78.3 % (45.0-75.0) H Lymphocytes (%) (Auto) 8.6 % (20.0-45.0) L Monocytes (%) (Auto) 11.6 % (1.0-10.0) H Eosinophils (%) (Auto) 0.0 % (0.0-3.0) Basophils (%) (Auto) 1.5 % (0.0-2.0) Sodium Level 133 MMOL/L (136-145) L Potassium Level 5.3 MMOL/L (3.5-5.1) H Chloride Level 96 MMOL/L (98-107) L Carbon Dioxide Level 30 MMOL/L (21-32) Anion Gap 7 mmol/L (5-15) Blood Urea Nitrogen 46 mg/dL (7-18) H Creatinine 0.8 MG/DL (0.55-1.30) Estimat Glomerular Filtration Rate > 60 mL/min (>60) Glucose Level 136 MG/DL (74-106) H Calcium Level 8.6 MG/DL (8.5-10.1) Total Bilirubin 0.7 MG/DL (0.2-1.0) Aspartate Amino Transf (AST/SGOT) 78 U/L (15-37) H Alanine Aminotransferase (ALT/SGPT) 71 U/L (12-78) Alkaline Phosphatase 287 U/L (46-116) H Total Protein 7.0 G/DL (6.4-8.2) Albumin 2.0 G/DL (3.4-5.0) L Globulin 5.0 g/dL Albumin/Globulin Ratio 0.4 (1.0-2.7) L Lactic Acid Level 2.50 mmol/L (0.4-2.0) H Arterial Blood pH 7.370 (7.350-7.450) Arterial Blood Partial Pressure CO2 53.6 mmHg (35.0-45.0) H Arterial Blood Partial Pressure O2 42.7 mmHg (75.0-100.0) Arterial Blood HCO3 30.3 mmol/L (22.0-26.0) H Arterial Blood Oxygen Saturation 75.0 % (95-100) *L Arterial Blood Base Excess 4.0 (-2-2) H Jax Test Positive Microbiology Date/Time Source Procedure Growth Status 03/29/20 21:40 Nasopharynx SARS-CoV-2 RdRp Gene Assay - Final Complete Assessment/Plan Assessment/Plan Respiratory failure HC assoc PNA Sepsis Hypovolemia Shock Acute myocardial infarction Sinus tachycardia CRITICAL & GUARDED Pressors IVF Vent support Anti-plt therapy Antimicrobials Replace lytes as needed Transfuse PRBC for hb below 7gm/dl DVT prophyl Marcus Main MD Mar 30, 2020 23:56
--- NOTE | 2020-04-01 10:36 | Discharge Summary ---
Discharge Summary Discharge Summary _ DATE OF ADMISSION: 03/29/2020 DATE OF DISCHARGE: 03/30/2020 BRIEF SUMMARY: Patient is an unfortunate 49-year-old female with history of neurofibromatosis, chronic respiratory failure and seizure disorder. She has been convalescing at a subacute halfway facility and was noted to be hypoxic and short of breath. She had a possible episode of vomiting. Paramedics were called. Patient was taken to ED where she was noted to be hypoxic. She was hooked on vent support. A central line was inserted to the right femoral vein. Troponin was 0.080. EKG showed T wave inversion in leads V1, V3, V4, III, aVF and aVR. She was started on IV pressors. Chest x-ray showed consolidation in the right lower lobe. Patient was actively vomiting. NG tube was placed on suction. NG tube was also inserted and was placed on suction. She was started empirically on vancomycin, cefepime, Levaquin. Potassium was elevated to 6.2. She was given calcium, insulin, dextrose and Lasix. Urinalysis showed evidence of infection. She was admitted to ICU in critical condition. She was placed on n.p.o. She was continued on aggressive IV antibiotics. She was placed on anticoagulation. She was given hydrocortisone. She continued to be hypotensive and hypoxemic. IV pressors were maxed. Patient went into asystole. Resuscitative efforts failed. Patient eventually . FINAL DIAGNOSES: Cardiopulmonary arrest Acute respiratory failure Aspiration pneumonia Urinary tract infection Sepsis Severe protein calorie malnutrition Hyperkalemia Acute renal failure Pulmonary hypertension Anemia Possible adrenal insufficiency Shock Acute myocardial infarction Neurofibromatosis Seizure disorder Dysphagia DISPOSITION: Patient . I have been assigned to complete a discharge summary on this account, I was not involved with the patient's management.--Nicolas Garcia NP. DISCHARGE INSTRUCTIONS: Follow-up in a week. I have been assigned to complete a discharge summary on this account, I was not involved with the patient's management.--GUSTABO Chun Jacqueline Robles NP Apr 01, 2020 10:36
== END 2020-03-30 10:21 | disposition expired | DRG 871 ==
LOC: EDBD 18:42 → EDBEDREQ 18:59 → EMR 19:10 → ICU 19:18 → EDBEDREQ 19:53
PROC: 5A1935Z Respiratory Ventilation, Less than 24 Consecutive Hours (ICD-10-PCS; principal; 2020-03-29)
DX: A41.9 Sepsis, unspecified organism (principal); R65.21 Severe sepsis with septic shock; J69.0 Pneumonitis due to inhalation of food and vomit; E43 Unspecified severe protein-calorie malnutrition; J96.21 Acute and chronic respiratory failure with hypoxia; I21.4 Non-ST elevation (NSTEMI) myocardial infarction; N39.0 Urinary tract infection, site not specified; N17.9 Acute kidney failure, unspecified; E87.1 Hypo-osmolality and hyponatremia; Z43.1 Encounter for attention to gastrostomy; I46.9 Cardiac arrest, cause unspecified; E87.5 Hyperkalemia; Q85.00 Neurofibromatosis, unspecified; G40.909 Epilepsy, unspecified, not intractable, without status epilepticus; Z88.0 Allergy status to penicillin; R13.10 Dysphagia, unspecified; I27.20 Pulmonary hypertension, unspecified; Z43.0 Encounter for attention to tracheostomy
CPT/HCPCS: 36415; 71045; 80053; 80156; 81003; 82550; 82553; 82803; 83605; 84484; 85025; 87040; 87081; 87086; 92950; 93005; 93970; 94002; 96365; 96367; 96368; 96375; 99291; 99292; J0171; J7030; U0002